=== PATIENT | female | born 1945 | race Caucasian/White ===

== ENCOUNTER → 2024-01-11 | Outpatient (CLI) | payer MEDICARE, SELFPAY ==
--- NOTE | 2024-01-11 10:14 | RAD_ITS ---
STUDY: X-RAY - PELVIS REASON FOR EXAM: Female, 78 years old. Pain. TECHNIQUE: One view of the pelvis was obtained. COMPARISON: None. FINDINGS: Normal bowel gas pattern with air seen to the rectosigmoid. Calcified uterine fibroid with vascular calcifications and phleboliths. Osteopenia. 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 RAD/Pelvis 1 or 2 Views IMPRESSION: Osteopenia with osteoarthritic changes as described. Calcified uterine fibroid. No acute finding. Electronically Signed: Omid Villegas MD at 12:54 EDT ,
[2024-01-11 11:14] LABS: EXAGEN MAILED SPECIMEN
[2024-01-11 12:13] LABS: Absolute Lymphocyte Count 1.45 X10^3/uL (0.83-4.51); Absolute Neutrophil Count 3.8 X10^3/uL (2.0-7.7); Basophil# 0.02 X10^3/uL; Basophil% 0.3 % (0-1); Eosinophil# 0.06 X10^3/uL; Hematocrit 37.8 % (37-47); Hemoglobin 12.2 g/dL (12.0-15.0); Lymphocyte # 1.45 X10^3/ul (0.83-4.51); Lymphocyte % 24.9 % (19-41); Mean Corp Hgb Conc 32.3 g/dL (32-36); Mean Corpuscular Hgb 30.4 pg (27.0-32.0); Mean Corpuscular Volume 94.3 fL (81-99); Mean Platelet Vol. 9.5 fl (6.2-12.0); Monocyte# 0.46 X10^3/uL; Monocyte% 7.9 % (0-10); NRBC Flagged by Analyzer 0 % (0-5); Neutrophil # 3.81 X10^3/uL (2.7-7.7); Neutrophil % 65.6 % (47-70); Platelet Count 275 K/mm3 (150-450); RBC Distribution Width CV 14.6 % (11.6-14.6); RBC Distribution Width SD 51.1 fl (35.1-43.9); Red Blood Count 4.01 M/mm3 (4.2-5.4); White Blood Count 5.8 K/mm3 (4.4-11.0)
[2024-01-11 12:22] LABS: Color, Urine Straw (Yellow); Glucose, Dipstick Normal (Normal); Ketone-Dipstick Negative (Negative); Leukocyte Esterase-Dipstick 25 /ul (Negative); Nitrite-Dipstick Negative (Negative); Occult Blood-Urine Negative /ul (Negative); Protein-Dipstick Negative (Negative); Urine Bilirubin Dipstick Negative (Negative); Urine Clarity Clear (Clear); Urine Urobilinogen Normal (Normal); Urine pH 6.5 (5.0 - 8.0)
[2024-01-11 12:28] LABS: AST(SGOT) 21 U/L (15-37); Alanine Aminotransfer ALT/SGPT 17 U/L (13-56); Albumin, Serum 3.7 g/dL (3.2-5.0); Alkaline Phosphatase 102 U/L (45-117); Anion Gap 9 (5-15); BUN 14 mg/dL (7-18); BUN/Creat Ratio 12.8 RATIO (10-20); Calcium,Total 10.2 mg/dL (8.5-10.1); Chloride 98 mmol/L (98-107); Creatinine, Serum 1.09 mg/dL (0.55-1.02); EST Glomerular Filtration Rate 51 mL/min (>60); Est Glom Filt Rate - Afr Amer 62 mL/min (>60); Globulin 3.7 g/dL (2.2-4.2); Glucose 105 mg/dL (74-106); Potassium 3.9 mmol/L (3.5-5.1); Protein, Total 7.4 g/dL (6.4-8.2); Sodium Level 132 mmol/L (136-145)
[2024-01-11 13:14] LABS: Hepatitis B Surface Antibody Non-Reactive; Hepatitis B Surface Antigen Non-Reactive (Nonreactive); Hepatitis C Antibody Non-Reactive (Nonreactive)
[2024-01-11 13:34] LABS: Protein, Urine (Random) < 6.0 mg/dL (<11.9)
[2024-01-14 06:10] LABS: QNTFERON TB Mitogen Value > 10.00 IU/mL (.); QNTFERON TB Nil Value 0.03 IU/mL (.); QNTFERON TB1+ Ag Value 0.03 IU/mL (.); QNTFERON TB2+ Ag Value 0.03 IU/mL (.); QNTIFERON TB Positive Criteria Negative (Negative)
== END | disposition home or self-care (01) ==
LOC: MTLAB 10:12
PROVIDERS: PCP Student in an Organized Health Care Education/Training Program; Referring Provider Internal Medicine Rheumatology; Visit Provider Internal Medicine Rheumatology
DX: R76.8 Other specified abnormal immunological findings in serum (principal); R10.2 Pelvic and perineal pain
CPT/HCPCS: 36415; 72170; 80053; 81002; 82570; 84156; 85025; 86480; 86706; 86803; 87340

== ENCOUNTER → 2024-03-21 | Outpatient (CLI) | payer MEDICARE, SELFPAY ==
[2024-03-21 15:28] LABS: Absolute Lymphocyte Count 1.43 X10^3/uL (0.83-4.51); Absolute Neutrophil Count 4.8 X10^3/uL (2.0-7.7); Basophil# 0.01 X10^3/uL; Basophil% 0.1 % (0-1); Eosinophil# 0.06 X10^3/uL; Eosinophils% 0.9 % (0-5); Hematocrit 36.5 % (37-47); Hemoglobin 12.2 g/dL (12.0-15.0); Lymphocyte # 1.43 X10^3/ul (0.83-4.51); Lymphocyte % 20.8 % (19-41); Mean Corp Hgb Conc 33.4 g/dL (32-36); Mean Corpuscular Hgb 32.8 pg (27.0-32.0); Mean Corpuscular Volume 98.1 fL (81-99); Monocyte# 0.52 X10^3/uL; Monocyte% 7.5 % (0-10); NRBC Flagged by Analyzer 0 % (0-5); Neutrophil # 4.84 X10^3/uL (2.7-7.7); Neutrophil % 70.3 % (47-70); Platelet Count 227 K/mm3 (150-450); RBC Distribution Width CV 15.5 % (11.6-14.6); RBC Distribution Width SD 54.9 fl (35.1-43.9); Red Blood Count 3.72 M/mm3 (4.2-5.4); White Blood Count 6.9 K/mm3 (4.4-11.0)
[2024-03-21 15:55] LABS: AST(SGOT) 15 U/L (15-37); Alanine Aminotransfer ALT/SGPT 15 U/L (13-56); Albumin, Serum 3.6 g/dL (3.2-5.0); Alkaline Phosphatase 103 U/L (45-117); Anion Gap 6 (5-15); BUN 17 mg/dL (7-18); BUN/Creat Ratio 19.3 RATIO (10-20); Chloride 99 mmol/L (98-107); Creatinine, Serum 0.88 mg/dL (0.55-1.02); EST Glomerular Filtration Rate 65 mL/min (>60); Est Glom Filt Rate - Afr Amer 79 mL/min (>60); Globulin 3.5 g/dL (2.2-4.2); Glucose 100 mg/dL (74-106); Potassium 4.1 mmol/L (3.5-5.1); Protein, Total 7.1 g/dL (6.4-8.2); Sodium Level 132 mmol/L (136-145)
== END | disposition home or self-care (01) ==
PROVIDERS: PCP Student in an Organized Health Care Education/Training Program; Referring Provider Internal Medicine Rheumatology; Visit Provider Internal Medicine Rheumatology
DX: M05.79 Rheumatoid arthritis with rheumatoid factor of multiple sites without organ or systems involvement (principal); Z79.899 Other long term (current) drug therapy; R76.8 Other specified abnormal immunological findings in serum; M79.7 Fibromyalgia
CPT/HCPCS: 36415; 80053; 85025

== ENCOUNTER → 2024-05-23 | Outpatient (CLI) | payer MEDICARE, SELFPAY ==
[2024-05-23 12:12] LABS: Absolute Lymphocyte Count 1.41 X10^3/uL (0.83-4.51); Absolute Neutrophil Count 2.9 X10^3/uL (2.0-7.7); Basophil# 0.01 X10^3/uL; Basophil% 0.2 % (0-1); Eosinophil# 0.05 X10^3/uL; Hematocrit 34.2 % (37-47); Hemoglobin 11.2 g/dL (12.0-15.0); Lymphocyte # 1.41 X10^3/ul (0.83-4.51); Lymphocyte % 28.8 % (19-41); Mean Corp Hgb Conc 32.7 g/dL (32-36); Mean Corpuscular Hgb 33.1 pg (27.0-32.0); Mean Corpuscular Volume 101.2 fL (81-99); Mean Platelet Vol. 9.4 fl (6.2-12.0); Monocyte# 0.54 X10^3/uL; NRBC Flagged by Analyzer 0 % (0-5); Neutrophil # 2.88 X10^3/uL (2.7-7.7); Neutrophil % 58.8 % (47-70); Platelet Count 214 K/mm3 (150-450); RBC Distribution Width CV 15.1 % (11.6-14.6); RBC Distribution Width SD 54.8 fl (35.1-43.9); Red Blood Count 3.38 M/mm3 (4.2-5.4); White Blood Count 4.9 K/mm3 (4.4-11.0)
[2024-05-23 12:39] LABS: ALB/GLOB Ratio 0.9 RATIO (0.9-2.4); AST(SGOT) 14 U/L (15-37); Alanine Aminotransfer ALT/SGPT 19 U/L (13-56); Albumin, Serum 3.4 g/dL (3.2-5.0); Alkaline Phosphatase 108 U/L (45-117); Anion Gap 6 (5-15); BUN 14 mg/dL (7-18); BUN/Creat Ratio 14.1 RATIO (10-20); Calcium,Total 9.9 mg/dL (8.5-10.1); Chloride 104 mmol/L (98-107); Creatinine, Serum 0.99 mg/dL (0.55-1.02); EST Glomerular Filtration Rate 57 mL/min (>60); Est Glom Filt Rate - Afr Amer 69 mL/min (>60); Globulin 3.6 g/dL (2.2-4.2); Glucose 101 mg/dL (74-106); Potassium 4.6 mmol/L (3.5-5.1); Sodium Level 138 mmol/L (136-145)
== END | disposition home or self-care (01) ==
LOC: MTLAB 10:17
PROVIDERS: PCP Student in an Organized Health Care Education/Training Program; Referring Provider Internal Medicine Rheumatology; Visit Provider Internal Medicine Rheumatology
DX: M05.79 Rheumatoid arthritis with rheumatoid factor of multiple sites without organ or systems involvement (principal); Z79.899 Other long term (current) drug therapy; M35.00 Sjogren syndrome, unspecified; M79.7 Fibromyalgia
CPT/HCPCS: 36415; 80053; 85025

== ENCOUNTER → 2024-10-04 | Outpatient (CLI) | payer MEDICARE, SELFPAY ==
[2024-10-04 12:52] LABS: Absolute Lymphocyte Count 1.17 X10^3/uL (0.83-4.51); Absolute Neutrophil Count 3.4 X10^3/uL (2.0-7.7); Basophil# 0.01 X10^3/uL; Basophil% 0.2 % (0-1); Eosinophil# 0.08 X10^3/uL; Eosinophils% 1.6 % (0-5); Hematocrit 33.1 % (37-47); Hemoglobin 10.9 g/dL (12.0-15.0); Lymphocyte # 1.17 X10^3/ul (0.83-4.51); Lymphocyte % 23.7 % (19-41); Mean Corp Hgb Conc 32.9 g/dL (32-36); Mean Corpuscular Hgb 33.6 pg (27.0-32.0); Mean Corpuscular Volume 102.2 fL (81-99); Mean Platelet Vol. 9.7 fl (6.2-12.0); Monocyte# 0.26 X10^3/uL; Monocyte% 5.3 % (0-10); NRBC Flagged by Analyzer 0 % (0-5); Neutrophil # 3.41 X10^3/uL (2.7-7.7); Platelet Count 241 K/mm3 (150-450); RBC Distribution Width CV 14.4 % (11.6-14.6); RBC Distribution Width SD 53.1 fl (35.1-43.9); Red Blood Count 3.24 M/mm3 (4.2-5.4); White Blood Count 4.9 K/mm3 (4.4-11.0)
[2024-10-04 13:20] LABS: ALB/GLOB Ratio 1.5 RATIO (0.9-2.4); AST(SGOT) 24 U/L (<=31); Alanine Aminotransfer ALT/SGPT 14 U/L (<=34); Alkaline Phosphatase 114 U/L (35-104); Anion Gap 12 (5-15); BUN 15 mg/dL (4-19); BUN/Creat Ratio 17.8 RATIO (10-20); Calcium,Total 9.8 mg/dL (7.6-11.0); Carbon Dioxide 24.4 mmol/L (21.0-32.0); Chloride 99 mmol/L (98-108); Creatinine, Serum 0.83 mg/dL (0.70-1.20); EST Glomerular Filtration Rate 70 (>60); Globulin 2.7 g/dL (2.2-4.2); Glucose 97 mg/dL (70-99); Potassium 4.2 mmol/L (3.3-5.1); Protein, Total 6.7 g/dL (5.9-8.4); Sodium Level 135 mmol/L (133-145); Total Bilirubin 0.74 mg/dL (0.00-1.30)
--- OUTSIDE RECORDS SUMMARY | 2024-10-04 20:33 | XMS RPT_ITS | CCD ---
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 Name Role Phone Trace Mendiola Unavailable [phone] Giancarlo Cesar Unavailable SHAWNA ZHOU Admitting Unavailable TRACE MENDIOLA Primary Care Unavailable Trace Mendiola Primary Care Provider Giancarlo Cesar Unavailable Trace Mendiola DO Primary Care Provider Giancarlo Cesar DPM Unavailable Trace Mendiola DO Primary Care Provider Trace Mendiola DO Primary Care Provider Giancarlo Cesar DPM Unavailable Trace Mendiola DO Primary Care Provider Trace Mendiola DO Primary Care Provider TRACE MENDIOLA Primary Care Unavailable Trace Mendiola DO Primary Care Provider SAM GRACIA Attending Unavailable RICK NÚÑEZ Referring Unavailable TRACE MENDIOLA Primary Care Unavailable SAM GRACIA Attending Unavailable TRACE MENDIOLA Primary Care Unavailable SAM GRACIA Attending Unavailable TRACE MENDIOLA Primary Care Unavailable MARYAM ABDULLAHI Attending Unavail able TRACE MENDIOLA Primary Care Unavailable MARYAM ABDULLAHI Attending Unavail able TRACE MENDIOLA Primary Care Unavailable INDIRA LEVY Attending Unavailable TRACE MENDIOLA Primary Care Unavailable MENDIOLA, TRACE L Primary Care Unavailable LEB, SAM B Referring Unavailable MENDIOLA, TRACE L Primary Care Unavailable LEB, SAM B Referring Unavailable MENDIOLA, TRACE L Primary Care Unavailable LEB, SAM B Referring Unavailable MENDIOLA, TRACE L Primary Care Unavailable OHLIGER, INDIRA E Referring Unavailable MENDIOLA, TRACE L Primary Care Unavailable OHLIGER MARYAM LUGO Referring Unavail able MENDIOLA, TRACE L Primary Care Unavailable RODOLFO CASSIDY Attending Unavailable OHBRYANGERINDIRA Referring Unavailable MENDIOLA, TRACE L Primary Care Unavailable RODOLFO CASSIDY Attending Unavailable OHLIGERINDIRA Referring Unavailable MENDIOLA, TRACE L Primary Care Unavailable OHLIGERINDIRA Referring Unavailable MENDIOLA, TRACE L Primary Care Unavailable OHLIGERINDIRA Referring Unavailable MENDIOLA, TRACE L Primary Care Unavailable OHLIGERINDIRA Referring Unavailable MENDIOLA, TRACE L Primary Care Unavailable OHLIGERINDIRA Referring Unavailable MENDIOLA, TRACE L Primary Care Unavailable OHLIGERINDIRA Referring Unavailable MENDIOLA, TRACE L Primary Care Unavailable OHLIGERINDIRA Referring Unavailable MENDIOLA, TRACE L Primary Care Unavailable RODOLFO CASSIDY Attending Unavailable OHBRYANGERINDIRA Referring Unavailable MENDIOLA, TRACE L Primary Care Unavailable RODOLFO CASSIDY Attending Unavailable OHBRYANGERINDIRA Referring Unavailable MENDIOLA, TRACE L Primary Care Unavailable OHLIGERINDIRA Referring Unavailable MENDIOLA, TRACE L Primary Care Unavailable RODOLFO CASSIDY Attending Unavailable OHINDIRA BROWN Referring Unavailable MENDIOLA, TRACE L Primary Care Unavailable OHLIGERINDIRA Referring Unavailable MENDIOLA, TRACE L Primary Care Unavailable OHLIGERINDIRA Referring Unavailable MENDIOLA, TRACE L Primary Care Unavailable OHLIGERINDIRA Referring Unavailable MENDIOLA, TRACE L Primary Care Unavailable OHLIGERINDIRA Referring Unavailable MENDIOLA, TRACE L Primary Care Unavailable RODOLFO CASSIDY Attending Unavailable OHINDIRA BROWN Referring Unavailable MENDIOLA, TRACE L Primary Care Unavailable OHLIGERINDIRA Referring Unavailable MENDIOLA, TRACE L Primary Care Unavailable OHLIGERINDIRA Referring Unavailable MENDIOLA, TRACE L Primary Care Unavailable OHLIGERINDIRA Referring Unavailable MENDIOLA, TRACE L Primary Care Unavailable RODOLFO CASSIDY Attending Unavailable OHBRYANGERINDIRA Referring Unavailable MENDIOLA, TRACE L Primary Care Unavailable OHLIGERINDIRA E Referring Unavailable MENDIOLA, TRACE L Primary Care Unavailable OHLIGER, INDIRA E Referring Unavailable MENDIOLA, TRACE L Primary Care Unavailable OHLIGER, INDIRA E Referring Unavailable MENDIOLA, TRACE L Primary Care Unavailable RODOLFO CASSIDY Attending Unavailable OHLIGERINDIRA E Referring Unavailable MENDIOLA, TRACE L Primary Care Unavailable MENDIOLA, TRACE L Primary Care Unavailable OHLIGER UPPERMAN, MARYAM Attending Unavailab le OHLIGER UPPERANA, MARYAM Referring Unavailab le MENDIOLA, TRACE L Primary Care Unavailable PROVIDER NOT IN SYSTEM, OTHER Attending Un available OHLIGER UPPERMAN, MARYAM Referring Unavailab le MENDIOLA, TRACE L Primary Care Unavailable OHLIGER UPPERMAN, MARYAM Referring Unavailab le OHLIGER UPPERMAN, MARYAM Attending Unavailab le OHLIGER UPPERANA, MARYAM Attending Unavailab le EMNDIOLA, TRACE L Primary Care Unavailable OHLIGER [place] MARYAM Referring Unavailab le INDIRA LEVY Attending Unavailable MENDIOLATRACE BRADY L Primary Care Unavailable OHLIGER [place], MARYAM Referring Unavailab le [facility] Attending Unavailab le MENDIOLA, TRACE L Primary Care Unavailable OHLIGER [place] MARYAM Referring Unavailab le OHLIGER YOMI, MARYAM Attending Unavailab le MENDIOLA, TRACE L Primary Care Unavailable OHLIGER [facility], MARYAM Referring Unavailab le Best SNOUT PULLER.Kaylen DUPONT Unavailable Sirisha SNOUT PULLER.Chyna DUPONT Unavailable CHYNA GRIMM Referring Unavailable TRACE MENDIOLA Primary Care Unavailable KAYLEN BEST Attending Unavailabl e MENDIOLATRACE L Primary Care Unavailable CHYNA GRIMM Attending Unavailable MENDIOLA TRACE L Primary Care Unavailable SIRISHACHYNA NORMAN Referring Unavailable MENDIOLA TRACE L Primary Care Unavailable CHYNA GRIMM Attending Unavailable MENDIOLATRACE L Primary Care Unavailable Love Gunter Attending Unavailable Love Gunter Referring Unavailable Trace Mendiola Primary Care Unavailable Love Gunter Attending Unavailable Love Gunter Referring Unavailable MendiolaTrace bardy Primary Care Unavailable Love Gunter Attending Unavailable Vellanki, Love Referring Unavailable Mendiola, Trace Primary Care Unavailable OHLIGER, INDIRA Mccauley Attending Unavailable MENDIOLA, TRACE L Primary Care Unavailable OHLIGER, INDIRA Mccauley Referring Unavailable MENDIOLA, TRACE L Primary Care Unavailable SCOUT OROZCO Attending Unavailable MENDIOLA, TRACE L Primary Care Unavailable OHLIGER UPPERANA, MARYAM E Referring Unavail able OHLIGER, INDIRA Mccauley Referring Unavailable MENDIOLA, TRACE L Primary Care Unavailable OHLIGER UPPERANA, MARYAM Mccauley Attending Unavail able MENDIOLA, TRACE L Primary Care Unavailable OHLIGER UPPERMAN, MARYAM E Referring Unavail able MENDIOLA, TRACE L Primary Care Unavailable OHLIGER, INDIRA Mccauley Attending Unavailable MENDIOLA, TRACE L Primary Care Unavailable OHLIGER, INDIRA E Referring Unavailable MENDIOLA, TRACE L Primary Care Unavailable OHLIGER, INDIRA Mccauley Attending Unavailable MENDIOLA, TRACE L Primary Care Unavailable OHLIGER, INDIRA E Referring Unavailable MENDIOLA, TRACE L Primary Care Unavailable OHLIGER YOMI, MARYAM E Attending Unavail able MENDIOLA, TRACE L Primary Care Unavailable [facility]HLIGER [facility] E Referring Unavail able MENDIOLA, TRACE L Primary Care Unavailable MENDIOLA, TRACE L Primary Care Unavailable CANDICE KIRAN Attending Unavailable MONICA PORTER Attending Unavailable MENDIOLA, TRACE L Primary Care Unavailable CANDICE KIRAN Attending Unavailable MENDIOLA, TRACE L Primary Care Unavailable KEVIN LACEY Attending Unavailable MENDIOLA, TRACE L Primary Care Unavailable Medications Current Medications Medication Drug Class(es) Dates Sig (Normalized) Sig (Original) acetaminophen 325 mg oral tablet (3 sources) Start: 08-11-2023 End: 08-18-2023 take 2 tablets by mouth every six hours acetaminophen (Tylenol) 325 mg tablet Indications: S/P reverse total shoulder arthroplasty, right Take 2 tablets (650 mg) by mouth every 6 hours for 7 days. 56 tablet 08/11/2023 08/18/2023 Active Start: 08-10-2023 take 650 mg by mouth every six hours as needed for pain 650 mg, oral, Every 6 hours scheduled, First dose on Wed08/10/23 at 1800, Phase II/On Unit, If ordered PRN for pain, nurse is permitted to administer this medication for higher pain scores based on patient preference? Yes Start: 08-10-2023 End: 08-10-2023 take 975 mg by mouth once as needed for pain 975 mg, oral, Once, On Wed08/10/23 at 0845, For 1 dose, Preprocedure, If ordered PRN for pain, nurse is permitted to administer this medication for higher pain scores based on patient preference? Yes acetaminophen 325 mg / oxyCODONE hydrochloride 5 mg oral tablet (2 sources) Opioid Agonist Start: 10-06-2023 End: 10-11-2023 take 1 tablet by mouth every six hours for pain oxyCODONE-acetaminophen (Percocet) 5-325 mg tablet Indications: Spontaneous rupture of extensor tendons, right hand Take 1 tablet by mouth every 6 hours if needed for severe pain (7 - 10) for up to 5 days. 20 tablet 10/06/2023 10/11/2023 Active Start: 06-07-2023 End: 06-10-2023 take 1 tablet by mouth every six hours for pain oxyCODONE-acetaminophen (Percocet) 5-325 mg tablet Indications: Fracture of humeral head, closed, right, initial encounter Take 1 tablet by mouth every 6 hours if needed for severe pain (7 - 10) for up to 3 days. 6 tablet 0 06/07/2023 06/10/2023 Active Amoxicillin (12 sources) Penicillin-class Antibacterial End: 07-14-2023 take 1 tablet by mouth twice daily AMOXICILLIN ORAL Take 1 tablet by mouth twice daily. 0 07/14/2023 Discontinued take 1 tablet by mouth twice ovi ly AMOXICILLIN ORAL Take 1 tablet by mouth twice daily. 0 Active Comment on above: Take 1 tablet by say twice daily. ascorbic acid 500 mg oral tablet (20 sources) Vitamin C take 1 tablet by mouth once daily ascorbic acid, vitamin C, (VITAMIN C) 500 MG tablet Take 1 (one) tablet (500 mg total) by mouth daily . Active Comment on above: Take 500 mg by mouth once daily. aspirin 81 mg delayed release oral tablet (20 sources) Nonsteroidal Anti-inflammatory Drug Start: 08-10-19 take 81 mg by mouth once daily 81 mg, oral, Daily, First dose on Wed08/10/23 at 1930, Do not crush, chew, or split. Comment on above: Take 81 mg by mouth once daily. atorvastatin 20 mg oral tablet (20 sources) HMG-CoA Reductase Inhibitor Start: 01-21-20 atorvastatin (LIPITOR) 20 MG tablet Indications: Mixed hyperlipidemia TAKE 1 TABLET EVERY DAY 90 tablet 3 01/21/2024 Active Start: 11-17-2022 atorvastatin ( LIPITOR) 20 MG tablet Indications: Mixed hyperlipidemia TAKE 1 TABLET EVERY DAY 90 tablet 3 11/17/2022 Active Start: 03-18-2020 End: 10-01-2021 take 1 tablet by mouth once daily atorvastatin (LIPITOR) 20 MG tablet Indications: Mixed hyperlipidemia Take 1 (one) tablet (20 mg total) by mouth daily . 90 tablet 3 10/01/2021 Active Start: 05-17-2019 take 1 tablet by say th once daily atorvastatin (LIPITOR) 20 MG tablet Indications: Mixed hyperlipidemia Take 1 (one) tablet (20 mg total) by mouth daily . 90 tablet 3 05/17/2019 Active Start: 06-14-2014 End: 05-17-2019 take 1 tablet by mouth once daily atorvastatin (Lipitor) 20 mg tablet Take 1 tablet (20 mg) by mouth once daily. 06/14/2014 Active Comment on above: Take 1 tablet by say th once daily. For cholesterol. bisacodyl 5 mg delayed release oral tablet (1 source) Stimulant Laxative Start: 08-10-19 take 1 tablet by mouth every twenty-four hours as needed Calcium Carbonate (12 sources) take 1200 mg by mouth once daily calcium carbonate (CALCIUM 600 ORAL) Take 1,200 mg by mouth once daily. Active calcium chloride 0.0014 meq/ml / potassium chloride 0.004 meq/ml / sodium chloride 0.103 meq/ml / sodium lactate 0.028 meq/ml injectable solution (3 sources) Start: 10-07-19 take 100 mL intravenously every hour 100 mL/hr, intravenous, Continuous, Starting on Wed10/07/23 at 0845, Preprocedure Start: 08-10-2023 take 50 mL intraveno usly every hour 50 mL/hr, intravenous, Continuous, Starting on Wed08/10/23 at 1645, Phase II/On Unit carvedilol 3.125 mg oral tablet (20 sources) alpha-Adrenergic Boyd, beta-Adrenergic Boyd Start: 01-21-2024 carvediloL (CORE G) 3.125 MG tablet Indications: Essential hypertension with goal blood pressure less than 130/80 TAKE 1 TABLET TWICE DAILY WITH MEALS 180 tablet 3 01/21/2024 Active Start: 11-17-2022 carvediloL (CO REG) 3.125 MG tablet Indications: Essential hypertension with goal blood pressure less than 130/80 TAKE 1 TABLET TWICE DAILY WITH MEALS 180 tablet 3 11/17/2022 Active Start: 03-18-2020 End: 10-01-2021 take 1 tablet by mouth twice daily at mealtime carvediloL (COREG) 3.125 MG tablet Indications: Essential hypertension with goal blood pressure less than 130/80 Take 1 (one) tablet (3.125 mg total) by mouth 2 (two) times a day with meals . 180 tablet 3 10/01/2021 Active Start: 05-17-2019 take 1 tablet by say th twice daily at mealtime carvediloL (COREG) 3.125 MG tablet Indications: Essential hypertension with goal blood pressure less than 130/80 Take 1 (one) tablet (3.125 mg total) by mouth 2 (two) times a day with meals . 180 tablet 3 05/17/2019 Active Start: 06-14-2014 End: 05-17-2019 take 1 tablet by mouth twice daily carvedilol (Coreg) 3.125 mg tablet Take 1 tablet (3.125 mg) by mouth twice a day. 06/14/2014 Active Comment on above: Take 1 tablet by say th twice daily. cholecalciferol 0.025 mg oral capsule (20 sources) Vitamin D take 1 capsule by mouth once daily cholecalciferol, vitamin D3, 25 mcg (1,000 unit) capsule Take 25 mcg by mouth daily . Active COMPOUNDED PRESCRIPTION (12 sources) End: COMPOUNDED PRESCRIPTION preservision tablet daily 0 07/14/2023 Discontinued COMPOUNDED PRESC RIPTION preservision tablet daily 0 Active Comment on above: preservision tablet daily cyclobenzaprine hydrochloride 5 mg oral tablet (2 sources) Muscle Relaxant Start: End: take 1 tablet by mouth three times daily as needed for muscle spasms cyclobenzaprine (Flexeril) 5 mg tablet Indications: S/P reverse total shoulder arthroplasty, right Take 1 tablet (5 mg) by mouth 3 times a day as needed for muscle spasms for up to 7 days. 21 tablet 08/11/2023 08/18/2023 Active Start: 08-10-2023 docusate sodium 100 mg oral capsule (20 sources) Start: 01-03-2019 End: 08-21-2023 take 1 capsule by mouth twice daily docusate sodium (COLACE) 100 MG capsule Take 1 (one) capsule (100 mg total) by mouth 2 (two) times a day . 01/03/2019 Active Start: 09-07-2018 End: 09-17-2018 take 1 capsule by mouth twice daily docusate sodium (COLACE) 100 MG capsule Take 1 (one) capsule (100 mg total) by mouth 2 (two) times a day for 10 days . 10 capsule 0 09/07/2018 09/17/2018 Active take 2 capsules by m outh once daily docusate sodium (Colace) 100 mg capsule Take 2 capsules (200 mg) by mouth once daily. Active Comment on above: Take 1 capsule by mo nhh twice daily. enalapril maleate 2.5 mg oral tablet (20 sources) Angiotensin Converting Enzyme Inhibitor Start: take 1 tablet by mouth once daily enalapril (VASOTEC) 2.5 MG tablet Indications: Essential hypertension with goal blood pressure less than 130/80 Take 1 (one) tablet (2.5 mg total) by mouth daily . 90 tablet 3 02/15/2024 Active Start: 08-11-2023 take 2.5 mg by mouth once shayna y 2.5 mg, oral, Daily RT, First dose on Wed08/11/23 at 0700 Start: 06-14-2014 End: 09-03-2023 take 1 tablet by mouth once daily enalapril (Vasotec) 2.5 mg tablet Take 1 tablet (2.5 mg) by mouth once daily. 06/14/2014 Active Start: 06-14-2014 take 1 tablet by say th twice daily enalapril (VASOTEC) 2.5 mg tablet Take 1 tablet by mouth twice daily. 0 06/14/2014 Active Comment on above: Take 1 tablet by say th twice daily. Take 2.5 mg by mouth once daily. fexofenadine (20 sources) Histamine-1 Receptor Antagonist take 1 tablet by mouth every other day fexofenadine HCl (ELSIE ORAL) Take 1 tablet by mouth every other day. Active take 1 tablet by mouth every oth er day fexofenadine HCl (ELSIE ORAL) Take 1 tablet by mouth every other day. 0 Active 24 hr fexofenadine hydrochloride 180 mg / pseudoephedrine hydrochloride 240 mg extended release oral tablet (20 sources) alpha-Adrenergic Agonist, Histamine-1 Receptor Antagonist Start: 11-10-2017 take 1 tablet by mouth once fexofenadine-pseudoePHEDrine (ELSIE-D 24) 180-240 mg per 24 hr tablet Take 1 (one) tablet by mouth once . 11/10/2017 Active Start: 11-10-2017 take 1 tablet by say th once daily as needed, then take 1 tablet by mouth every twenty-four hours as needed Fexofenadine-Pseudoephedrine (ELSIE-D 24 HOUR) 180-240 mg per 24 hr tablet Take 1 tablet by mouth once daily as needed (sinus/cold symptoms). 30 tablet 3 11/10/2017 Active take 1 tablet by say th every other day fexofenadine/pseudoephedrine (ELSIE-D 24 HOUR ORAL) Take 1 tablet by mouth every other day. Active take 1 tablet by say th every other day fexofenadine/pseudoephedrine (ELSIE-D 24 HOUR ORAL) Take 1 tablet by mouth every other day. 0 Active Comment on above: Take 1 tablet by say th once daily as needed (sinus/cold symptoms). folic acid 1 mg oral tablet (2 sources) Start: 02-01-2024 take 1 tablet by mouth once daily folic acid (FOLVITE) 1 MG tablet Take 2 (two) tablets (2,000 mcg total) by mouth daily . 02/01/2024 Active furosemide 40 mg oral tablet (20 sources) Loop Diuretic Start: 09-28-2023 End: 08-30-2024 take 1 tablet by mouth once daily furosemide (LASIX) 40 MG tablet Take 1 (one) tablet (40 mg total) by mouth daily . 09/28/2023 Active Start: 11-17-2022 End: 10-04-2023 take 1 tablet by mouth once daily as needed furosemide (LASIX) 20 MG tablet Indications: Essential hypertension with goal blood pressure less than 130/80 , Bilateral lower extremity edema Take 1 (one) tablet (20 mg total) by mouth daily as needed (for lower extremity swelling) . 90 tablet 3 11/17/2022 Active Start: 12-26-2016 End: 02-16-2022 take 1 tablet by mouth once daily as needed furosemide (LASIX) 20 MG tablet Indications: Essential hypertension with goal blood pressure less than 130/80 , Bilateral lower extremity edema Take 1 (one) tablet (20 mg total) by mouth daily as needed (for lower extremity swelling) . 90 tablet 2 10/01/2021 Active 0.5 ml HYDROmorphone hydrochloride 1 mg/ml prefilled syringe (1 source) Opioid Agonist Start: 08-10-2023 take 0.5 mg intravenously every four hours as needed ibuprofen 800 mg oral tablet (20 sources) Nonsteroidal Anti-inflammatory Drug Start: 10-06-2023 End: 10-11-2023 take 1 tablet by mouth three times daily ibuprofen 800 mg tablet Indications: Spontaneous rupture of extensor tendons, right hand Take 1 tablet (800 mg) by mouth 3 times a day for 5 days. 15 tablet 10/06/2023 10/11/2023 Active Start: 06-10-2023 End: 10-04-2023 take 1 tablet by mouth every six hours for pain ibuprofen 600 mg tablet Indications: osteoarthritis Take 1 tablet (600 mg) by mouth every 6 hours if needed for mild pain (1 - 3). 28 tablet 2 06/10/2023 10/04/2023 Discontinued (Med List Cleanup) ketorolac tromethamine 5 mg/ml ophthalmic solution (20 sources) Nonsteroidal Anti-inflammatory Drug, Cyclooxygenase Inhibitor Start: 01-05-2020 take 1 drop(s) into the eye(s) four times daily ketorolac (ACULAR) 0.5 % ophthalmic solution Use 1 Drop in the right eye four times daily. 1 Bottle 1 01/05/2020 Active Start: 01-05-2020 take 1 drop(s) into the eye(s) four times daily ketorolac (ACULAR) 0.5 % ophthalmic solution Use 1 Drop in the right eye four times daily. 1 Bottle 1 01/05/2020 Active Comment on above: Use 1 Drop in the ri ght eye four times daily. lactobacillus acidophilus (13 sources) End: 07-14-2023 LACTOBACILLUS ACIDOPHILUS (PROBIOTIC ORAL) Take by mouth. 0 07/14/2023 Discontinued LACTOBACILLUS AC IDOPHILUS (PROBIOTIC ORAL) Take by mouth. 0 Active End: 05-18-2017 LACTOBACILLUS ACIDOPHILUS (P ROBIOTIC ORAL) Take by mouth. 05/18/2017 Discontinued Comment on above: Take by mouth. methotrexate 2.5 mg oral tablet (3 sources) Folate Analog Metabolic Inhibitor Start: take 7 tablets by mouth every week methotrexate 2.5 mg tablet Take 7 tablets by mouth one time a week. 06/01/2024 Active Start: 02-01-2024 take 1 tablet by say th every week methoTREXate (TREXALL) 2.5 MG tablet Take 1 (one) tablet (2.5 mg total) by mouth once a week . 02/01/2024 Active 1 ml morphine sulfate 2 mg/ml prefilled syringe (1 source) Opioid Agonist Start: 08-10-2023 multivitamin (THERAGRAN) per tablet (4 sources) take 1 tablet by mouth once daily multivitamin (THERAGRAN) per tablet Take 1 (one) tablet by mouth daily . Active take 1 tablet by mouth once shayna y multivitamin (THERAGRAN) per tablet Take 1 (one) tablet by mouth daily . 0 Active multivitamin tablet (12 sources) End: 07-14-2023 take 1 tablet by mouth once daily multivitamin tablet Take 1 tablet by mouth once daily. 0 07/14/2023 Discontinued take 1 tablet by mouth once shayna y multivitamin tablet Take 1 tablet by mouth once daily. 0 Active Comment on above: Take 1 tablet by say th once daily. 2 ml naloxone hydrochloride 1 mg/ml prefilled syringe (12 sources) Opioid Antagonist Start: 08-10-2023 Start: 08-06-2023 End: 10-04-2023 naloxone (Narcan) 4 mg/0.1 m L nasal spray Instill 1 spray intranasally for opioid overdose; repeat in 5 minutes if no response. 2 each 08/06/2023 10/04/2023 Discontinued (Med List Cleanup) naproxen 500 mg delayed release oral tablet (20 sources) Nonsteroidal Anti-inflammatory Drug Start: 08-23-2015 take 1 tablet by mouth twice daily as needed Naproxen SR (EC-NAPROSYN) 500 mg EC tablet Indications: Arthritis pain, wrist Take 1 tablet by mouth twice daily as needed. 30 tablet 1 08/23/2015 Active take 1 tablet by say th twice daily as needed naproxen (Naprosyn) 250 mg tablet Take 1 tablet (250 mg) by mouth 2 times a day as needed. Active Comment on above: Take 1 tablet by say th twice daily as needed. omeprazole 20 mg delayed release oral capsule (16 sources) Proton Pump Inhibitor take 1 capsule by mouth once daily omeprazole (PRILOSEC) 20 MG capsule Take 1 (one) capsule (20 mg total) by mouth daily . Active take 1 tablet by say th once daily before mealtime omeprazole OTC (PriLOSEC OTC) 20 mg EC tablet Take 1 tablet (20 mg) by mouth once daily in the morning. Take before meals. Do not crush, chew, or split. 0 Active Ondansetron (1 source) Serotonin-3 Receptor Antagonist Start: 08-10-2023 take 1 tablet by mouth every eight hours as needed ondansetron (Zofran) tablet 4 mg oxyCODONE hydrochloride 5 mg oral tablet (3 sources) Opioid Agonist Start: 08-10-2023 End: 08-18-2023 take 1 tablet by mouth every six hours for pain oxyCODONE (Roxicodone) 5 mg immediate release tablet Indications: S/P reverse total shoulder arthroplasty, right Take 1 tablet (5 mg) by mouth every 6 hours if needed for moderate pain (4 - 6) or severe pain (7 - 10) for up to 7 days. 28 tablet 08/11/2023 08/18/2023 Active Start: 08-10-2023 take 1 tablet by say th every four hours as needed 10 mg, oral, Every 4 hours PRN, pain moderate (4-6), first line, Starting on Wed08/10/23 at 1617, Phase II/On Unit, If ordered PRN for pain, nurse is permitted to administer this medication for higher pain scores based on patient preference? Yes pantoprazole 20 mg delayed r elease oral tablet (20 sources) Proton Pump Inhibitor Start: 08-12-2023 Start: 09-26-2021 End: 07-13-2023 take 1 tablet by mouth once daily pantoprazole (PROTONIX) 40 MG tablet Take 1 (one) tablet (40 mg total) by mouth daily . 07/13/2023 Active take 1 tablet by say th once daily before mealtime pantoprazole (ProtoNix) 20 mg EC tablet Take 1 tablet (20 mg) by mouth once daily in the morning. Take before meals. Do not crush, chew, or split. Active Comment on above: TAKE 1 TABLET EVERY DAY Take 1 tablet by say once daily. phenylephrine hydrochloride 25 mg/ml ophthalmic solution (2 sources) alpha-1 Adrenergic Agonist Start: 08-21-2022 End: 08-22-2022 PHENYLephrine 2.5 % 1 Drop (AK-DILATE, GONZÁLEZ-SYNEPHRINE) Start: 07-08-2022 End: 07-09-2022 PHENYLephrine 2.5 % 1 Drop ( AK-DILATE) polyethylene glycol 400 4 mg /ml / propylene glycol 3 mg/ml ophthalmic solution (6 sources) Start: 04-07-2016 peg 400-propyl tayo glycol 0.4-0.3 % Drop 1 (one) drop . 04/07/2016 Active microencapsulated potassium chloride 10 meq extended release oral tablet (20 sources) Start: 02-17-2024 potassium chlo ride SA (K-DUR,KLOR-CON M10) 10 MEQ tablet Indications: Bilateral lower extremity edema , On potassium wasting diuretic therapy TAKE 1 TABLET EVERY DAY WHEN TAKING FUROSEMIDE 20MG DAILY FOR LOWER EXTREMITY SWELLING 90 tablet 3 02/17/2024 Active Start: 12-26-2016 End: 02-17-2024 take 1 tablet by mouth once daily potassium chloride CR 10 mEq ER tablet Take 1 tablet (10 mEq) by mouth once daily. 12/26/2016 Active prednisoLONE acetate 10 mg/ml ophthalmic suspension (20 sources) Corticosteroid Start: 01-05-2020 prednisoLONE a cetate (PRED FORTE, ECONOPRED PLUS) 1 % ophthalmic suspension Use 1 Drop in the right eye four times daily. 1 Bottle 1 01/05/2020 Active Start: 01-05-2020 prednisoLONE a cetate (PRED FORTE, ECONOPRED PLUS) 1 % ophthalmic suspension Use 1 Drop in the right eye four times daily. 1 Bottle 1 01/05/2020 Active Comment on above: Use 1 Drop in the ri ght eye four times daily. predniSONE 10 mg oral tablet (3 sources) Start: take 1 tablet by mouth once daily as needed predniSONE (DELTASONE) 10 MG tablet TAKE 1 TABLET BY MOUTH EVERY DAY NEEDED FOR 3-5 DAYS WITH A FLARE 01/11/2024 Active Prochlorperazine (1 source) Phenothiazine Start: take 1 tablet by mouth every six hours as needed prochlorperazine (Compazine) tablet 10 mg promethazine (Phenergan) 6.25 mg in sodium chloride 0.9% 50 mL IV (1 source) Start: 6.25 mg, intravenous, Administer over 15 Minutes, Once as needed, Nausea/vomiting, second line, Starting on Wed08/10/23 at 1617, For 1 dose, Phase II/On Unit proparacaine hydrochloride 5 mg/ml ophthalmic solution (2 sources) Local Anesthetic Start: End: proparacaine 0.5 % 1 Drop (ALCAINE) Start: 07-08-2022 End: 07-09-2022 proparacaine 0.5 % 1 Drop (A LCAINE) Propylene glycol (20 sources) take 1 drop(s) into the eye(s) once daily propylene glycol (SYSTANE COMPLETE OPHT) Administer 1 drop into affected eye(s) once daily. Active take 1 drop(s) into the eye(s) once daily propylene glycol (SYSTANE COMPLETE OPHT) Administer 1 drop into affected eye(s) once daily. 0 Active PROPYLENE GLYCOL/PEG 400 (BLINK TEARS LUBRICATING) Eye Drops (12 sources) Start: 04-07-2016 End: 07-14-2023 take 1 drop(s) into the eye(s) three times daily PROPYLENE GLYCOL/PEG 400 (BLINK TEARS LUBRICATING) Eye Drops Use 1 Drop in both eyes three times daily. 0 04/07/2016 07/14/2023 Discontinued Start: 04-07-2016 take 1 drop(s) into the eye(s) three times daily PROPYLENE GLYCOL/PEG 400 (BLINK TEARS LUBRICATING) Eye Drops Use 1 Drop in both eyes three times daily. 0 04/07/2016 Active Comment on above: Use 1 Drop in both e yes three times daily. tropicamide 10 mg/ml ophthalmic solution (2 sources) Anticholinergic Start: 08-21-2022 End: 08-22-2022 tropicamide 1 % 1 Drop (MYDRIACYL) Start: 07-08-2022 End: 07-09-2022 tropicamide 1 % 1 Drop (MYDR IACYL) VIT A/VIT C/VIT E/ZINC/COPPE R (PRESERVISION AREDS ORAL) (12 sources) End: 07-14-2023 VIT A/VIT C/VIT E/ZINC/COPPE R (PRESERVISION AREDS ORAL) Take by mouth. 0 07/14/2023 Discontinued VIT A/VIT C/VIT E/ZINC/COPPER (PRESERVISION AREDS ORAL) Take by mouth. 0 Active Comment on above: Take by mouth. Completed/Discontinued Medications Medication Drug Class(es) Dates Sig (Normalized) Sig (Original) ASCORBATE CALCIUM (VITAMIN C ORAL) (2 sources) End: 03-07-2018 ASCORBATE CALCIUM (VITAMIN C ORAL) Take by mouth. 0 03/07/2018 Discontinued (Discontinued by another clinician) ASCORBATE CALCIU M (VITAMIN C ORAL) Take by mouth. Active ceFAZolin 2000 mg injection (1 source) Cephalosporin Antibacterial Start: 08-10-2023 End: 08-11-2023 take 2 g intravenously every eight hours 2 g, intravenous, Administer over 30 Minutes, Every 8 hours, First dose on Wed08/10/23 at 2030, For 2 doses, Phase II/On Unit, Start 8 hours after pre-op dose given. premix bag, Dosing of this medication varies based on severity of illness. Does this patient have sepsis or concern for sepsis (probable or documented infection plus systemic manifestations of infection)? No, Suspected Indication (Select all that apply): Surgical Prophylaxis celecoxib 200 mg oral capsule (1 source) Nonsteroidal Anti-inflammatory Drug Start: 08-10-2023 End: 08-10-2023 take 1 capsule by mouth once 400 mg, oral, Once, On Wed08/10/23 at 0845, For 1 dose, Preprocedure, Capsules may be opened and sprinkled on a spoonful of cold or room temperature applesauce. gabapentin 300 mg oral capsule (1 source) Anti-epileptic Agent Start: 08-10-2023 End: 08-10-2023 take 1 capsule by mouth once 600 mg, oral, Once, On Wed08/10/23 at 0845, For 1 dose, Preprocedure, Capsules may be opened and sprinkled on food (eg, applesauce, orange juice, pudding L. acidophilus/pecti n, citrus (ACIDOPHILUS PROBIOTIC ORAL) (1 source) End: 12-01-2022 L. acidophilus/pectin , citrus (ACIDOPHILUS PROBIOTIC ORAL) Take by mouth . 0 12/01/2022 Discontinued (Patient's Request) multivitamin capsule (13 sources) End: 11-24-2021 take 1 capsule by mouth once daily multivitamin capsule Take 1 capsule by mouth daily. 0 11/24/2021 Discontinued (Patient's Request) take 1 capsule by mouth once ovi ly multivitamin capsule Take 1 capsule by mouth daily. 0 Active take 1 capsule by mouth once ovi ly multivitamin capsule Take 1 capsule by mouth daily. Active povidone-iodine 50 mg/ml topical solution (1 source) Antiseptic Start: 08-10-2023 End: 08-10-2023 1 Application (1 kit), Topical, Once, On Wed08/10/23 at 0900, For 1 dose, Preprocedure tranexamic acid 650 mg oral tablet (3 sources) Antifibrinolytic Agent Start: 08-10-2023 End: 08-10-2023 take 1 dose by mouth every six hours 1,950 mg, oral, Once, On Wed08/10/23 at 2100, For 1 dose, Recovery & On Unit, First dose administered 6 hours post procedure. Do not crush, chew, or split., Tranexamic Acid Indication: Surgical Prophylaxis: Orthopedic Start: 08-10-2023 End: 08-11-2023 1,950 mg, oral, Once, On Wed08/11/23 at 0600, For 1 dose, Phase II/On Unit, Second dose administered post-op day 1 at 0600. Do not crush, chew, or split., Tranexamic Acid Indication: Surgical Prophylaxis: Orthopedic VIT A/VIT C/VIT E/ZINC/COPPE R (OCUVITE PRESERVISION ORAL) (13 sources) End: 11-24-2021 VIT A/VIT C/VIT E/ZINC/COPPE R (OCUVITE PRESERVISION ORAL) Take by mouth. 0 11/24/2021 Discontinued (Patient's Request) VIT A/VIT C/VIT E/ZINC/COPPER (OCUVITE PRESERVISION ORAL) Take by mouth. 0 Active VIT A/VIT C/VIT E/ZINC/COPPER (OCUVITE PRESERVISION ORAL) Take by mouth. Active Problems Active Problems Problem Classification Problem Date Documented Date Episodic/Chronic Cataract (20 sources) Combined form of senile cataract; Translations: [Combined forms of age-related cataract, unspecified eye] Onset: 02-07-2016 01-27-2017 Chronic Coronary atherosclerosis and other heart disease (20 sources) Coronary arteriosclerosis; Translations: [Coronary arteriosclerosis in [place] artery] Onset: 08-16-2015 08-16-2015 Chronic Disorders of lipid metabolism (20 sources) Hyperlipidemia; Translations: [Mixed hyperlipidemia] Onset: 08-16-2015 08-16-2015 Chronic Esophageal disorders (20 sources) Gastroesophageal reflux disease without esophagitis; Translations: [Gastro-esophageal reflux disease without esophagitis] Onset: 08-01-2013 Chronic Essential hypertension (20 sources) Hypertensive disorder; Translations: [Essential hypertension] Onset: 08-16-2015 08-16-2015 Chronic Inflammation; infection of eye (except that caused by tuberculosis or sexually transmitteddisease) (20 sources) Bilateral punctate keratitis of eyes; Translations: [Punctate keratitis, bilateral] Onset: 01-27-2017 01-27-2017 Chronic Nutritional deficiencies (20 sources) Vitamin D deficiency; Translations: [Vitamin D deficiency, unspecified] Onset: 02-17-2022 Chronic Osteoarthritis (20 sources) Primary gonarthrosis, bilateral; Translations: [Bilateral primary osteoarthritis of knee] Onset: 06-16-2013 Chronic Other aftercare (2 sources) Drug therapy finding; Translations: [Other usp (current) drug therapy] Episodic Other and ill-defined heart disease (20 sources) Left ventricular cardiac dysfunction; Translations: [Heart disease, unspecified] Onset: 08-16-2015 08-16-2015 Chronic Other and ill-defined heart disease (2 sources) Heart disease, unspecified; Translations: [Heart disease, unspecified] Onset: 08-16-2015 Chronic Other connective tissue disease (20 sources) History of total knee arthroplasty; Translations: [Presence of unspecified artificial knee joint] Onset: 06-16-2013 Resolved: 11-13-2014 11-13-2014 Chronic Other connective tissue disease (20 sources) History of reverse prosthetic total arthroplasty of right shoulder; Translations: [Presence of right artificial shoulder joint] Onset: 08-10-2023 08-11-2023 Chronic Other connective tissue disease (4 sources) History of total arthroplasty of right shoulder; Translations: [Presence of right artificial shoulder joint] 08-27-2023 Chronic Other connective tissue disease (6 sources) Presence of right artificial shoulder joint; Translations: [Presence of right artificial shoulder joint] Onset: 08-10-2023 Chronic Other connective tissue disease (1 source) Spontaneous rupture of extensor tendons, right hand; Translations: [Spontaneous rupture of extensor tendons, right hand] Onset: 01-06-2024 Episodic Other ear and sense organ disorders (1 source) Sensorineural hearing loss, bilateral; Translations: [Sensorineural hearing loss, bilateral] 01-17-2024 Chronic Other ear and sense organ disorders (2 sources) Impacted cerumen of bilateral ears; Translations: [Impacted cerumen, bilateral] 03-16-2023 Episodic Other eye disorders (20 sources) Bilateral vitreous floaters; Translations: [Other vitreous opacities, bilateral] Onset: 04-07-2016 04-07-2016 Chronic Other nervous system disorders (2 sources) Other chronic pain; Translations: [Other chronic pain] Onset: 09-28-2023 Chronic Other non-traumatic joint disorders (2 sources) Arthritis of right wrist 08-14-2024 Chronic Other non-traumatic joint disorders (2 sources) Multiple joint pain; Translations: [Pain in unspecified joint] 09-03-2023 Episodic Other nutritional; endocrine; and metabolic disorders (20 sources) Body mass index 40+ - severely obese; Translations: [Morbid (severe) obesity due to excess calories] Onset: 09-06-2017 09-06-2017 Chronic Other nutritional; endocrine; and metabolic disorders (13 sources) Obesity; Translations: [Obesity, unspecified] Onset: 10-06-2023 10-06-2023 Chronic Other screening for suspected conditions (not mental disorders or infectious disease) (3 sources) Patient encounter status; Translations: [Encounter for screening mammogram for malignant neoplasm of breast] Episodic Retinal detachments; defects; vascular occlusion; and retinopathy (20 sources) Bilateral epiretinal membrane of eyes; Translations: [Puckering of macula, bilateral] Onset: 10-13-2019 10-13-2019 Chronic Rheumatoid arthritis and related disease (1 source) Rheumatoid arthritis with rheumatoid factor of multiple sites without organ or systems involvement; Translations: [Rheumatoid arthritis with rheumatoid factor of multiple sites without organ or systems involvement] Onset: 06-09-2024 Chronic Unclassified (2 sources) History of reverse prosthetic total arthroplasty of right shoulder 08-07-2024 Unclassified (2 sources) Extensor tendon rupture of hand, right, initial encounter 08-14-2024 Unclassified (2 sources) 1 year follow up ear cleaning Onset: 01-17-2024 Past or Other Problems Problem Classification Problem Date Documented Date Episodic/Chronic Blindness and vision defects (20 sources) Visual field defect; Translations: [Unspecified visual field defects] Onset: 03-20-2016 03-20-2016 Episodic Complications of surgical procedures or medical care (12 sources) Disorder of tendon repair; Translations: [Other intraoperative and postprocedural complications and disorders of the musculoskeletal system] Onset: 10-27-2023 10-27-2023 Episodic Fracture of upper limb (20 sources) Closed fracture of right upper limb; Translations: [Unspecified fracture of shaft of humerus, right arm, initial encounter for closed fracture] Onset: 06-07-2023 Resolved: 08-11-2023 06-09-2023 Episodic Immunizations and screening for infectious disease (3 sources) Raised antinuclear antibody; Translations: [Other specified abnormal immunological findings in serum] Onset: 02-01-2024 09-28-2023 Episodic Malaise and fatigue (20 sources) Fatigue; Translations: [Other fatigue] Onset: 02-17-2022 Episodic Other and unspecified benign neoplasm (20 sources) Hemangioma of eyelid; Translations: [Hemangioma of skin and subcutaneous tissue] Onset: 10-13-2019 10-13-2019 Episodic Other connective tissue disease (17 sources) Spontaneous rupture of extensor tendon of right hand; Translations: [Spontaneous rupture of extensor tendons, right hand] Onset: 09-23-2023 09-23-2023 Episodic Other eye disorders (20 sources) Tear film insufficiency; Translations: [Dry eye syndrome of unspecified lacrimal gland] Onset: 04-07-2016 04-07-2016 Episodic Other eye disorders (20 sources) H/O: R cataract extraction; Translations: [Cataract extraction status, right eye] Onset: 01-19-2020 01-19-2020 Episodic Other eye disorders (20 sources) H/O: L cataract extraction; Translations: [Cataract extraction status, left eye] Onset: 01-19-2020 01-19-2020 Episodic Other eye disorders (15 sources) Dry eyes; Translations: [Dry eye syndrome of bilateral lacrimal glands] Onset: 02-07-2016 Resolved: 04-07-2016 04-07-2016 Episodic Other nervous system disorders (20 sources) Paresthesia of hand ; Translations: [Paresthesia of skin] Onset: 08-01-2013 08-01-2013 Episodic Other non-traumatic joint disorders (4 sources) Pain in unspecified joint; Translations: [Pain in unspecified joint] Onset: 09-09-2023 Episodic Other non-traumatic joint disorders (14 sources) Pain in right shoulder; Translations: [Pain in joint, shoulder region] Onset: 09-28-2023 09-28-2023 Episodic Residual codes; unclassified (20 sources) Bilateral lower limb edema; Translations: [Localized edema] Onset: 08-11-2016 Episodic Residual codes; unclassified (12 sources) Edema of right upper arm; Translations: [Localized edema] Onset: 09-28-2023 09-28-2023 Episodic Residual codes; unclassified (3 sources) Localized edema; Translations: [Localized edema] Onset: 09-28-2023 Episodic Spondylosis; intervertebral disc disorders; other back problems (20 sources) Backache; Translations: [Dorsalgia, unspecified] Onset: 08-01-2013 08-01-2013 Episodic Sprains and strains (12 sources) Strain of other specified muscles, fascia and tendons at wrist and hand level, right hand, initial encounter; Translations: [Sprain of hand, unspecified site] Onset: 09-21-2023 09-03-2023 Episodic Unclassified (7 sources) Edema of lower extremity; Translations: [Edema of both legs] Onset: 08-11-2016 08-11-2016 Episodic Unclassified (12 sources) Onset: 09-28-2023 09-28-2023 Results Test Name Value Interpretation Reference Range Facility XR WRIST RIGHT 3+ VIEWSon XR WRIST RIGHT 3+ VIEWS Interpreted By: Maryam Levy, STUDY: XR WRIST RIGHT 3+ VIEWS; ; 08/14/2024 2:03 pm INDICATION: Signs/Symptoms:pain. 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 ACCESSION NUMBER(S): [id number] ORDERING CLINICIAN: MARYAM LUGO FINDINGS: Three views of the right wrist status post sterile procedure. Abundant radiocarpal arthritis again present. Ulna alignment unchanged from prior. Evidence of diffuse arthritic changes throughout radiocarpal, midcarpal and remainder of hand IMPRESSION: As above MACRO: None Signed by: Maryam Levy 08/14/2024 4:06 PM Dictation workstation: [id number] [facility] XR Wrist - right 3 Viewson 0 08-14-2024 As above MACRO: None Signed by: Maryam Levy 08/14/2024 4:06 PM Dictation workstation: [id number] [facility] Interpreted By: Maryam Levy, STUDY: XR WRIST RIGHT 3+ VIEWS; ; 08/14/2024 2:03 pm INDICATION: Signs/Symptoms:pain. 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 ACCESSION NUMBER(S): [id number] ORDERING CLINICIAN: MARYAM LUGO FINDINGS: Three views of the right wrist status post sterile procedure. Abundant radiocarpal arthritis again present. Ulna alignment unchanged from prior. Evidence of diffuse arthritic changes throughout radiocarpal, midcarpal and remainder of hand [facility] Abiel Abdullahi MD - 08/14/2024 Interpreted By: Maraym Levy, STUDY: XR WRIST RIGHT 3+ VIEWS; ; 08/14/2024 2:03 pm INDICATION: Signs/Symptoms:pain. 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 ACCESSION NUMBER(S): [id number] ORDERING CLINICIAN: MARYAM LUGO FINDINGS: Three views of the right wrist status post sterile procedure. Abundant radiocarpal arthritis again present. Ulna alignment unchanged from prior. Evidence of diffuse arthritic changes throughout radiocarpal, midcarpal and remainder of hand IMPRESSION: As above MACRO: None Signed by: Maryam Levy 08/14/2024 4:06 PM Dictation workstation: [id number] [facility] Work Phone: [facility] Work Phone: Radiology Study observation (narrative) [facility] Work Phone: XR SHOULDER RIGHT 2+ VIEWSon 08-07-2024 XR SHOULDER RIGHT 2+ VIEWS Interpreted By: Indira Levy III, STUDY: XR SHOULDER RIGHT 2+ VIEWS; ; 08/07/2024 2:42 pm INDICATION: Signs/Symptoms:pain. 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 ACCESSION NUMBER(S): [id number] ORDERING CLINICIAN: INDIRA LEVY FINDINGS: Three views right shoulder: Status post right reverse shoulder arthroplasty for fracture. Similar inferior tilt about the glenosphere in comparison to prior x-rays. Scant lucency about the proximal aspect of the humeral prosthesis. No periprosthetic fracture. Some lucency about the inferior aspect in early findings consistent with scapular impingement. IMPRESSION: Status post right reverse shoulder arthroplasty for fracture MACRO: None Signed by: Indira Levy III 08/07/2024 3:39 PM Dictation workstation: [id number] [facility] Comment on above: Order Comment: 3 vie ws Gr[place], axillary, Scap Y XR Shoulder - right 2 Viewso n 08-07-2024 Status post right reverse shoulder arthroplasty for fracture MACRO: None Signed by: Indira Levy III 08/07/2024 3:39 PM Dictation workstation: [id number] [facility] Interpreted By: Indira Garvey III, STUDY: XR SHOULDER RIGHT 2+ VIEWS; ; 08/07/2024 2:42 pm INDICATION: Signs/Symptoms:pain. 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 ACCESSION NUMBER(S): [id number] ORDERING CLINICIAN: INDIRA LEVY FINDINGS: Three views right shoulder: Status post right reverse shoulder arthroplasty for fracture. Similar inferior tilt about the glenosphere in comparison to prior x-rays. Scant lucency about the proximal aspect of the humeral prosthesis. No periprosthetic fracture. Some lucency about the inferior aspect in early findings consistent with scapular impingement. [facility] Indira Levy MD - 08/07/2024 Interpreted By: Indira Levy III, STUDY: XR SHOULDER RIGHT 2+ VIEWS; ; 08/07/2024 2:42 pm INDICATION: Signs/Symptoms:pain. 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 ACCESSION NUMBER(S): [id number] ORDERING CLINICIAN: INDIRA LEVY FINDINGS: Three views right shoulder: Status post right reverse shoulder arthroplasty for fracture. Similar inferior tilt about the glenosphere in comparison to prior x-rays. Scant lucency about the proximal aspect of the humeral prosthesis. No periprosthetic fracture. Some lucency about the inferior aspect in early findings consistent with scapular impingement. IMPRESSION: Status post right reverse shoulder arthroplasty for fracture MACRO: None Signed by: Indira Levy III 08/07/2024 3:39 PM Dictation workstation: [id number] [facility] Work Phone: [facility] Work Phone: Radiology Study observation (narrative) [facility] Work Phone: CNOVon 06-01-2024 CNOV Office Visit (FAMPWS ) JEMAL,FELISHA ([id number]) 1945 F Date Time Provider Department 06/01/24 9:00 AM [facility] During your visit today, we recorded the following information about you: Pulse Respiration Blood pressure Weight 66/minute 14/minute 122/62 98.5 kg Height 1.67 m Kaylen Best, SNOUT PULLER.VEGETABLE PREPARER 06/01/2024 9:29 AM Signed Felisha Joaquin is a 79 year old female here for a Medicare wellness visit. Medicare Health Risk Assessment General Health Good Exercise: Minutes/Day 0 min Exercise: Days/Week 0 days Alcohol: Daily Use Never Alcohol: Drinks/Day Patient does not drink Alcohol: 6 or more drinks Never Feel off balance No Concerns: Teeth/Dentures No Concerns: Sexual function No Troubled by feelings None of the above Frequency: Eating healthy diet Several days ADLs requiring help None of the above Safety precautions in home/vehicle Yes Smoke, vape, chews tobacco No Difficulty hearing Yes Difficulty seeing No Current Providers Specialists: I have reviewed specialist-related care of the patient in the medical record. Medical/Family history review Reviewed and updated problem list, medical/surgical/family /social history, medications, and allergies. Opioid use review Opioid Medications (last 90 days) No data to display Anxiety/Depression screening PHQ-2 Score: 0 (Lower risk for depression) Recommendation: no further intervention at this time Cognitive screening Cognitive screening reviewed and No further action needed (score 3-5). Functional Observation Was the patient's Timed Up AND Go test unsteady or >= 12 seconds? No Advance Care Planning Patient did not wish or was not able to name a surrogate decision maker or provide an advance care plan Measurements Ht 167 cm (5' 5.75) Wt 98.5 kg (217 lb 3.2 oz) BMI 35.33 kg/m? Vision Screening: Follows with optometry/ophthalmology Assessment/Plan Medicare annual wellness visit, subsequent (Z00.00) - Counseled on healthy diet and regular exercise - Fall avoidance information provided - Personalized prevention plan provided Medications refilled. Recent lab work reviewed. Kaylen Best APRN.VEGETABLE PREPARER Allergies As of Date: 06/01/2024 (No Known Allergies) Date Reviewed: 06/01/2024 Reviewed by: Harper Stephenson LPN - Fully Assessed Reason for Visit: Medicare Wellness Exam [4060] Visit Diagnoses:Bilateral lower extremity edema [R60.0] Essential hypertension [I10] Order(s):furosemide (LASIX) 40 mg tabletTake 1 tablet by mouth once daily.Disp: 90 tabletRfl: 0 Prescriptions as of 06/01/2024 - furosemide (LASIX) 40 mg tablet Take 1 tablet by mouth once daily. - pantoprazole DR (PROTONIX) 40 mg tablet Take 1 tablet by mouth once daily. - prednisoLONE acetate (PRED FORTE, ECONOPRED PLUS) 1 % ophthalmic suspension Use 1 Drop in the right eye four times daily. - ketorolac (ACULAR) 0.5 % ophthalmic solution Use 1 Drop in the right eye four times daily. - docusate sodium (STOOL SOFTENER) 100 mg capsule Take 1 capsule by mouth twice daily. - Fexofenadine-Pseudoephe drine (ELSIE-D 24 HOUR) 180-240 mg per 24 hr tablet Take 1 tablet by mouth once daily as needed (sinus/cold symptoms). - KLOR-CON 10 10 mEq tablet - Naproxen SR (EC-NAPROSYN) 500 mg EC tablet Take 1 tablet by mouth twice daily as needed. - enalapril (VASOTEC) 2.5 mg tablet Take 2.5 mg by mouth once daily. - atorvastatin (LIPITOR) 20 mg tablet Take 1 tablet by mouth once daily. For cholesterol. - carvedilol (COREG) 3.125 mg tablet Take 1 tablet by mouth twice daily. - aspirin, enteric coated 81 mg EC tablet Take 81 mg by mouth once daily. - ascorbic acid, vitamin C, (VITAMIN C) 500 mg tablet Take 500 mg by mouth once daily. 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] 02/07/2016 Visual field loss [H53.40] 03/20/2016 Dry eye syndrome [H04.129] 04/07/2016 Combined forms of age-related cataract of both *04/07/2016 Vitreous floaters of both eyes [H43.393] 04/07/2016 Punctate keratitis, bilateral [H16.143] 01/27/2017 Obesity, Class III, BMI 40-49.9 (morbid obesity*09/06/2017 Epiretinal membrane (ERM) of both eyes [H35.373]10/13/2019 Essential hypertension [I10] 10/13/2019 Hemangioma of eyelid [D18.01] 10/13/2019 Status post cataract extraction and insertion o*01/19/2020 Status post cataract extraction and insertion o*01/19/2020 Dyslipidemia [E78.5] 02/17/2022 Fatigue [R53.83] 02/17/2022 (more content not included)... [facility] FELISHA JOAQUIN ([id number]) 1945 F Date Time Provider Department 06/01[facility] During your visit today, we recorded the following information about you: Alta Olivarez, RN 06/01/2024 11:15 AM Signed Pt saw Kaylen this morning and was to call in with her dose of Methotrexate. Pt has 2.5 mg tablets and takes 7 tablets once a week on Saturdays. Kaylen Best APRN.[employer] [employer] 06/01/2024 11:20 AM Signed Noted, thank you. I have updated our medication list. Thank you, Kaylen Best APRN.[facility] Allergies As of Date: 06/01/2024 (No Known Allergies) Date Reviewed: 06/01/2024 Reviewed by: Harper Stephenson LPN - Fully Assessed Reason for Visit: Medication Update [3875] Order(s):methotrexate 2.5 mg tabletTake 7 tablets by mouth one time a week.Disp: Rfl: Prescriptions as of 06/01/2024 - furosemide (LASIX) 40 mg tablet Take 1 tablet by mouth once daily. - methotrexate 2.5 mg tablet Take 7 tablets by mouth one time a week. - pantoprazole DR (PROTONIX) 40 mg tablet Take 1 tablet by mouth once daily. - prednisoLONE acetate (PRED FORTE, ECONOPRED PLUS) 1 % ophthalmic suspension Use 1 Drop in the right eye four times daily. - ketorolac (ACULAR) 0.5 % ophthalmic solution Use 1 Drop in the right eye four times daily. - docusate sodium (STOOL SOFTENER) 100 mg capsule Take 1 capsule by mouth twice daily. - Fexofenadine-Pseudoephe drine (ELSIE-D 24 HOUR) 180-240 mg per 24 hr tablet Take 1 tablet by mouth once daily as needed (sinus/cold symptoms). - KLOR-CON 10 10 mEq tablet - Naproxen SR (EC-NAPROSYN) 500 mg EC tablet Take 1 tablet by mouth twice daily as needed. - enalapril (VASOTEC) 2.5 mg tablet Take 2.5 mg by mouth once daily. - atorvastatin (LIPITOR) 20 mg tablet Take 1 tablet by mouth once daily. For cholesterol. - carvedilol (COREG) 3.125 mg tablet Take 1 tablet by mouth twice daily. - aspirin, enteric coated 81 mg EC tablet Take 81 mg by mouth once daily. - ascorbic acid, vitamin C, (VITAMIN C) 500 mg tablet Take 500 mg by mouth once daily. 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] 02/07/2016 Visual field loss [H53.40] 03/20/2016 Dry eye syndrome [H04.129] 04/07/2016 Combined forms of age-related cataract of both *04/07/2016 Vitreous floaters of both eyes [H43.393] 04/07/2016 Punctate keratitis, bilateral [H16.143] 01/27/2017 Obesity, Class III, BMI 40-49.9 (morbid obesity*09/06/2017 Epiretinal membrane (ERM) of both eyes [H35.373]10/13/2019 Essential hypertension [I10] 10/13/2019 Hemangioma of eyelid [D18.01] 10/13/2019 Status post cataract extraction and insertion o*01/19/2020 Status post cataract extraction and insertion o*01/19/2020 Dyslipidemia [E78.5] 02/17/2022 Fatigue [R53.83] 02/17/2022 Vitamin D deficiency [E55.9] 02/17/2022 Medicare annual wellness visit, subsequent [Z00*02/17/2022 Prescriptions ordered this encounter Disp Refills Start End METHOTREXATE SODIUM 2.5 MG TABLET 06/01/2024 Class: Med Update Route: ORAL Sig: Take 7 tablets by mouth one time a week. Encounter Status:Closed by KAYLEN BEST on 06/01/24 Normal [facility] CBC W/Diff, Automatedon - Absolute Lymph 1.41 X10 3/uL Normal 0.83-4.51 [facility] Comment on above: Performed By: #### L 500.4050, L100.0100 #### [facility] [address] [place], [address] Absolute Neut 2.9 X10 3/uL Normal 2.0-7.7 [facility] Comment on above: Performed By: #### L 500.4050, L100.0100 #### [facility] [address] [place], [address] Basophils/100 WBC (Bld) 0.2 % Normal 0-1 [facility] Comment on above: Performed By: #### L 500.4050, L100.0100 #### [facility] [address] [place], [address] Eosinophils/100 WBC (Bld) 1.0 % Normal 0-5 [facility] Comment on above: Performed By: #### L 500.4050, L100.0100 #### [facility] [address] [place], [address] Erythrocyte distribution width (RBC) [Ratio] 15.1 % High 11.6-14.6 [facility] Comment on above: Performed By: #### L 500.4050, L100.0100 #### [facility] [address] [place], [address] Hematocrit (Bld) [Volume fraction] 34.2 % Low 37-47 [facility] Comment on above: Performed By: #### L 500.4050, L100.0100 #### [facility] [address] [place], [address] Hemoglobin (Bld) [Mass/Vol] 11.2 g/dL Low 12.0-15.0 [facility] Comment on above: Performed By: #### L 500.4050, L100.0100 #### [facility] [address] [place], [address] IG% 0.200 Normal 0.0-0.9 [facility] Comment on above: Result Comment: IG% - Immature Granulocytes (promyelocytes, myelocytes and metamyelocytes) > 1% indicates that a LEFT SHIFT is Present. Performed By: #### L 500.4050, L100.0100 #### [facility] [address] [place], [address] Lymphocytes/100 WBC (Bld) 28.8 % Normal 19-41 [facility] Comment on above: Performed By: #### L 500.4050, L100.0100 #### [facility] [address] [place], [address] MCH (RBC) [Entitic mass] 33.1 pg High 27.0-32.0 [facility] Comment on above: Performed By: #### L 500.4050, L100.0100 #### [facility] [address] [place], [address] MCHC (RBC) [Mass/Vol] 32.7 g/dL Normal 32-36 [facility] Comment on above: Performed By: #### L 500.4050, L100.0100 #### [facility] [address] [place], [address] MCV (RBC) [Entitic vol] 101.2 fL High 81-99 [facility] Comment on above: Performed By: #### L 500.4050, L100.0100 #### [facility] [address] [place], [address] Monocytes/100 WBC (Bld) 11.0 % High 0-10 [facility] Comment on above: Performed By: #### L 500.4050, L100.0100 #### [facility] [address] [place], [address] Neutrophils/100 WBC (Bld) 58.8 % Normal 47-70 [facility] Comment on above: Performed By: #### L 500.4050, L100.0100 #### [facility] [address] [place], [address] Nucleated RBC (Bld) [#/Vol] 0 10*3/uL Normal 0-5 [facility] Comment on above: Performed By: #### L 500.4050, L100.0100 #### [facility] [address] [place], [address] Platelet mean volume (Bld) [Entitic vol] 9.4 fL Normal 6.2-12.0 [facility] Comment on above: Performed By: #### L 500.4050, L100.0100 #### [facility] [address] [place], [address] Platelets (Bld) [#/Vol] 214 10*3/uL Normal 150-450 [facility] Comment on above: Performed By: #### L 500.4050, L100.0100 #### [facility] [address] [place], [address] RBC (Bld) [#/Vol] 3.38 10*6/uL Low 4.2-5.4 [facility] Comment on above: Performed By: #### L 500.4050, L100.0100 #### [facility] [address] [place], [address] RDW SD 54.8 fl High 35.1-43.9 [facility] Comment on above: Performed By: #### L 500.4050, L100.0100 #### [facility] [address] [place], [address] WBC (Bld) [#/Vol] 4.9 10*3/uL Normal 4.4-11.0 [facility] Comment on above: Performed By: #### L 500.4050, L100.0100 #### [facility] [address] [place], [address] Comprehensive Metabolic Prof [facility] 05-23-2024 Albumin [Mass/Vol] 3.4 g/dL Normal 3.2-5.0 [facility] Comment on above: Performed By: #### L 500.4050, L100.0100 #### [facility] [address] [place], [address] Albumin/Globulin [Mass ratio] 0.9 {ratio} Normal 0.9-2.4 [facility] Comment on above: Performed By: #### L 500.4050, L100.0100 #### [facility] [address] [place], [address] ALK P 108 U/L Normal 45-117 [facility] Comment on above: Performed By: #### L 500.4050, L100.0100 #### [facility] [address] [place], [address] ALT [Catalytic activity/Vol] 19 U/L Normal 13-56 [facility] Comment on above: Performed By: #### L 500.4050, L100.0100 #### [facility] [address] [place], [address] AST [Catalytic activity/Vol] 14 U/L Low 15-37 [facility] Comment on above: Performed By: #### L 500.4050, L100.0100 #### [facility] [address] [place], [address] Bilirubin [Mass/Vol] 0.60 mg/dL Normal 0.20-1.00 [facility] Comment on above: Result Comment: For patients on eltrombopag therapy, use of Dimension [place] TBIL is not recommended. Performed By: #### L 500.4050, L100.0100 #### [facility] [address] [place], [address] BUN/CRE 14.1 RATIO Normal 10-20 [facility] Comment on above: Performed By: #### L 500.4050, L100.0100 #### [facility] [address] [place], [address] CA,Total 9.9 mg/dL Normal 8.5-10.1 [facility] Comment on above: Performed By: #### L 500.4050, L100.0100 #### [facility] [address] [place], [address] Chloride [Moles/Vol] 104 mmol/L Normal 98-107 [facility] Comment on above: Performed By: #### L 500.4050, L100.0100 #### [facility] [address] [place], [address] CO2 [Moles/Vol] 27.0 mmol/L Normal 21.0-32.0 [facility] Comment on above: Performed By: #### L 500.4050, L100.0100 #### [facility] [address] [place], [address] Creatinine [Mass/Vol] 0.99 mg/dL Normal 0.55-1.02 [facility] Comment on above: Result Comment: The validity of the calculated GFR GFRAA in patients over 70 years has not been determined. Clinical correlation is essential. Performed By: #### L 500.4050, L100.0100 #### [facility] [address] [place], [address] EST GFR - AA 69 mL/min Normal >60 [facility] Comment on above: Result Comment: Afri can [place] GFR Calc Performed By: #### L 500.4050, L100.0100 #### [facility] [address] [place], [address] GAP 6 Normal 5-15 [facility] Comment on above: Performed By: #### L 500.4050, L100.0100 #### [facility] [address] [place], [address] GFR/1.73 sq M.predicted among non-blacks MDRD (S/P/Bld) [Vol rate/Area] 57 mL/min/{1.73_m2} Low >60 [facility] Comment on above: Result Comment: Non- GFR Calc Performed By: #### L 500.4050, L100.0100 #### [facility] [address] [place], [address] Globulin (S) [Mass/Vol] 3.6 g/dL Normal 2.2-4.2 [facility] Comment on above: Performed By: #### L 500.4050, L100.0100 #### [facility] [address] [place], [address] Glucose [Mass/Vol] 101 mg/dL Normal 74-106 [facility] Comment on above: Result Comment: Fast ing Glucose result from 100 to 125 mg/dL suggests IMPAIRED HOMEOSTASIS per A.D.A. criteria. Performed By: #### L 500.4050, L100.0100 #### [facility] [address] [place], [address] Potassium [Moles/Vol] 4.6 mmol/L Normal 3.5-5.1 [facility] Comment on above: Performed By: #### L 500.4050, L100.0100 #### [facility] [address] [place], [address] Sodium [Moles/Vol] 138 mmol/L Normal 136-145 [facility] Comment on above: Performed By: #### L 500.4050, L100.0100 #### [facility] [address] [place], [address] T PROT 7.0 g/dL Normal 6.4-8.2 [facility] Comment on above: Performed By: #### L 500.4050, L100.0100 #### [facility] [address] [place], [address] Urea nitrogen [Mass/Vol] 14 mg/dL Normal 7-18 [facility] Comment on above: Performed By: #### L 500.4050, L100.0100 #### [facility] [address] [place], [address] CBC W/Diff, Automatedon 11-2 Absolute Lymph 1.43 X10 3/uL Normal 0.83-4.51 [facility] Comment on above: Performed By: #### L 500.4050, L100.0100 #### [facility] [address] [place], [address] Absolute Neut 4.8 X10 3/uL Normal 2.0-7.7 [facility] Comment on above: Performed By: #### L 500.4050, L100.0100 #### [facility] [address] [place], [address] Basophils/100 WBC (Bld) 0.1 % Normal 0-1 [facility] Comment on above: Performed By: #### L 500.4050, L100.0100 #### [facility] [address] [place], [address] Eosinophils/100 WBC (Bld) 0.9 % Normal 0-5 [facility] Comment on above: Performed By: #### L 500.4050, L100.0100 #### [facility] [address] [place], [address] Erythrocyte distribution width (RBC) [Ratio] 15.5 % High 11.6-14.6 [facility] Comment on above: Performed By: #### L 500.4050, L100.0100 #### [facility] [address] [place], [address] Hematocrit (Bld) [Volume fraction] 36.5 % Low 37-47 [facility] Comment on above: Performed By: #### L 500.4050, L100.0100 #### [facility] [address] [place], [address] Hemoglobin (Bld) [Mass/Vol] 12.2 g/dL Normal 12.0-15.0 [facility] Comment on above: Performed By: #### L 500.4050, L100.0100 #### [facility] [address] [place], [address] IG% 0.400 Normal 0.0-0.9 [facility] Comment on above: Result Comment: IG% - Immature Granulocytes (promyelocytes, myelocytes and metamyelocytes) > 1% indicates that a LEFT SHIFT is Present. Performed By: #### L 500.4050, L100.0100 #### [facility] [address] [place], [address] Lymphocytes/100 WBC (Bld) 20.8 % Normal 19-41 [facility] Comment on above: Performed By: #### L 500.4050, L100.0100 #### [facility] [address] [place], [address] MCH (RBC) [Entitic mass] 32.8 pg High 27.0-32.0 [facility] Comment on above: Performed By: #### L 500.4050, L100.0100 #### [facility] [address] [place], [address] MCHC (RBC) [Mass/Vol] 33.4 g/dL Normal 32-36 [facility] Comment on above: Performed By: #### L 500.4050, L100.0100 #### [facility] [address] [place], [address] MCV (RBC) [Entitic vol] 98.1 fL Normal 81-99 [facility] Comment on above: Performed By: #### L 500.4050, L100.0100 #### [facility] [address] [place], [address] Monocytes/100 WBC (Bld) 7.5 % Normal 0-10 [facility] Comment on above: Performed By: #### L 500.4050, L100.0100 #### [facility] [address] [place], [address] Neutrophils/100 WBC (Bld) 70.3 % High 47-70 [facility] Comment on above: Performed By: #### L 500.4050, L100.0100 #### [facility] [address] [place], [address] Nucleated RBC (Bld) [#/Vol] 0 10*3/uL Normal 0-5 [facility] Comment on above: Performed By: #### L 500.4050, L100.0100 #### [facility] [address] [place], [address] Platelet mean volume (Bld) [Entitic vol] 10.0 fL Normal 6.2-12.0 [facility] Comment on above: Performed By: #### L 500.4050, L100.0100 #### [facility] [address] [place], [address] Platelets (Bld) [#/Vol] 227 10*3/uL Normal 150-450 [facility] Comment on above: Performed By: #### L 500.4050, L100.0100 #### [facility] [address] [place], [address] RBC (Bld) [#/Vol] 3.72 10*6/uL Low 4.2-5.4 [facility] Comment on above: Performed By: #### L 500.4050, L100.0100 #### [facility] [address] [place], [address] RDW SD 54.9 fl High 35.1-43.9 [facility] Comment on above: Performed By: #### L 500.4050, L100.0100 #### [facility] [address] [place], [address] WBC (Bld) [#/Vol] 6.9 10*3/uL Normal 4.4-11.0 [facility] Comment on above: Performed By: #### L 500.4050, L100.0100 #### [facility] [address] [place], [address] Comprehensive Metabolic Prof nvon 03-21-2024 Albumin [Mass/Vol] 3.6 g/dL Normal 3.2-5.0 [facility] Comment on above: Performed By: #### L 500.4050, L100.0100 #### [facility] [address] [place], [address] Albumin/Globulin [Mass ratio] 1.0 {ratio} Normal 0.9-2.4 [facility] Comment on above: Performed By: #### L 500.4050, L100.0100 #### [facility] [address] [place], [address] ALK P 103 U/L Normal 45-117 [facility] Comment on above: Performed By: #### L 500.4050, L100.0100 #### [facility] [address] [place], [address] ALT [Catalytic activity/Vol] 15 U/L Normal 13-56 [facility] Comment on above: Performed By: #### L 500.4050, L100.0100 #### [facility] [address] [place], [address] AST [Catalytic activity/Vol] 15 U/L Normal 15-37 [facility] Comment on above: Performed By: #### L 500.4050, L100.0100 #### [facility] [address] [place], [address] Bilirubin [Mass/Vol] 0.60 mg/dL Normal 0.20-1.00 [facility] Comment on above: Result Comment: For patients on eltrombopag therapy, use of Dimension [place] TBIL is not recommended. Performed By: #### L 500.4050, L100.0100 #### [facility] [address] [place], [address] BUN/CRE 19.3 RATIO Normal 10-20 [facility] Comment on above: Performed By: #### L 500.4050, L100.0100 #### [facility] [address] [place], [address] CA,Total 10.0 mg/dL Normal 8.5-10.1 [facility] Comment on above: Performed By: #### L 500.4050, L100.0100 #### [facility] [address] [place], [address] Chloride [Moles/Vol] 99 mmol/L Normal 98-107 [facility] Comment on above: Performed By: #### L 500.4050, L100.0100 #### [facility] [address] [place], [address] CO2 [Moles/Vol] 27.0 mmol/L Normal 21.0-32.0 [facility] Comment on above: Performed By: #### L 500.4050, L100.0100 #### [facility] [address] [place], [address] Creatinine [Mass/Vol] 0.88 mg/dL Normal 0.55-1.02 [facility] Comment on above: Result Comment: The validity of the calculated GFR GFRAA in patients over 70 years has not been determined. Clinical correlation is essential. Performed By: #### L 500.4050, L100.0100 #### [facility] [address] [place], [address] EST GFR - AA 79 mL/min Normal >60 [facility] Comment on above: Result Comment: Afri can [place] GFR Calc Performed By: #### L 500.4050, L100.0100 #### [facility] [address] [place], [address] GAP 6 Normal 5-15 [facility] Comment on above: Performed By: #### L 500.4050, L100.0100 #### [facility] [address] [place], [address] GFR/1.73 sq M.predicted among non-blacks MDRD (S/P/Bld) [Vol rate/Area] 65 mL/min/{1.73_m2} Normal >60 [facility] Comment on above: Result Comment: Non- GFR Calc Performed By: #### L 500.4050, L100.0100 #### [facility] [address] [place], [address] Globulin (S) [Mass/Vol] 3.5 g/dL Normal 2.2-4.2 [facility] Comment on above: Performed By: #### L 500.4050, L100.0100 #### [facility] [address] [place], [address] Glucose [Mass/Vol] 100 mg/dL Normal 74-106 [facility] Comment on above: Result Comment: Fast ing Glucose result from 100 to 125 mg/dL suggests IMPAIRED HOMEOSTASIS per A.D.A. criteria. Performed By: #### L 500.4050, L100.0100 #### [facility] [address] [place], [address] Potassium [Moles/Vol] 4.1 mmol/L Normal 3.5-5.1 [facility] Comment on above: Performed By: #### L 500.4050, L100.0100 #### [facility] [address] [place], [address] Sodium [Moles/Vol] 132 mmol/L Low 136-145 [facility] Comment on above: Performed By: #### L 500.4050, L100.0100 #### [facility] [address] [place], [address] T PROT 7.1 g/dL Normal 6.4-8.2 [facility] Comment on above: Performed By: #### L 500.4050, L100.0100 #### [facility] [address] [place], [address] Urea nitrogen [Mass/Vol] 17 mg/dL Normal 7-18 [facility] Comment on above: Performed By: #### L 500.4050, L100.0100 #### [facility] [address] [place], [address] Quantiferon TB-Gold+on 01-13 QFT MITOGEN HAIDER > 10.00 Normal . [facility] Comment on above: Performed By: #### L 500.4050, L100.0100 #### [facility] [address] [place], [address] QFT NIL VALUE 0.03 IU/mL Normal . [facility] Comment on above: Performed By: #### L 500.4050, L100.0100 #### [facility] [address] [place], [address] QFT TB GOLD+ Comment Normal . [facility] Comment on above: Result Comment: Wilfrid tiFERON-TB Gold Plus is a qualitative indirect test for M tuberculosis infection (including disease) and is intended for use in conjunction with risk assessment, radiography, and other medical and diagnostic evaluations. The QuantiFERON-TB Gold Plus result is determined by subtracting the Nil value from either TB antigen (Ag) value. The Mitogen tube serves as a control for the test. Performed By: #### L 500.4050, L100.0100 #### [facility] [address] [place], [address] QFT TB POS CRIT Negative Normal Negative [facility] Comment on above: Result Comment: No r esponse to M tuberculosis antigens detected. Infection with M tuberculosis is unlikely, but high risk individuals should be considered for additional testing (ATS/IDSA/CDC Clinical Practice Guidelines, 2017). The reference range is an Antigen minus Nil result of <0.35 IU/mL. The specimen received for QuantiFERON testing was incubated by the ordering institution. Specific procedures outlined in our Directory of Services and in the package insert for the QuantiFERON Gold (In Tube) test must be followed to enable for proper stimulation of cells for the production of interferon gamma. Chemiluminescence immunoassay methodology Performed at: [facility] [id number] [employer] Feeder: Eliseo Dyer PhD, Phone: [phone] Performed By: #### L 500.4050, L100.0100 #### [facility] [address] [place], [address] QFT TB1+ AG HAIDER 0.03 IU/mL Normal . [facility] Comment on above: Performed By: #### L 500.4050, L100.0100 #### [facility] [address] [place], [address] QFT TB2+ AG HAIDER 0.03 IU/mL Normal . [facility] Comment on above: Performed By: #### L 500.4050, L100.0100 #### [facility] [address] [place], [address] CBC W/Diff, Automatedon 12-25 Absolute Lymph 1.45 X10 3/uL Normal 0.83-4.51 [facility] Comment on above: Performed By: #### L 3890.6300, L3400.8000, L100.0100, L400.2010, L501.0900, L500.4050, L3890.6100, L3890.6200 #### [facility] [address] [place], [address] Absolute Neut 3.8 X10 3/uL Normal 2.0-7.7 [facility] Comment on above: Performed By: #### L 3890.6300, L3400.8000, L100.0100, L400.2011, L501.0900, L500.4050, L3890.6100, L3890.6200 #### [facility] [address] [place], [address] Basophils/100 WBC (Bld) 0.3 % Normal 0-1 [facility] Comment on above: Performed By: #### L 3890.6300, L3400.8000, L100.0100, L400.2011, L501.0900, L500.4050, L3890.6100, L3890.6200 #### [facility] [address] [place], [place], [phone]) Eosinophils/100 WBC (Bld) 1.0 % Normal 0-5 [facility] Comment on above: Performed By: #### L 3890.6300, L3400.8000, L100.0100, L400.2011, L501.0900, L500.4050, L3890.6100, L3890.6200 #### [facility] [address] [place], [address] ([phone]) Erythrocyte distribution width (RBC) [Ratio] 14.6 % Normal 11.6-14.6 [facility] Comment on above: Performed By: #### L 3890.6300, L3400.8000, L100.0100, L400.2011, L501.0900, L500.4050, L3890.6100, L3890.6200 #### [facility] [address] [place], [address] [phone]) Hematocrit (Bld) [Volume fraction] 37.8 % Normal 37-47 [facility] Comment on above: Performed By: #### L 3890.6300, L3400.8000, L100.0100, L400.2010, L501.0900, L500.4050, L3890.6100, L3890.6200 #### [facility] [address] [place], [address] Hemoglobin (Bld) [Mass/Vol] 12.2 g/dL Normal 12.0-15.0 [facility] Comment on above: Performed By: #### L 3890.6300, L3400.8000, L100.0100, L400.2011, L501.0900, L500.4050, L3890.6100, L3890.6200 #### [facility] [address] [place], [address] IG% 0.300 Normal 0.0-0.9 [facility] Comment on above: Result Comment: IG% - Immature Granulocytes (promyelocytes, myelocytes and metamyelocytes) > 1% indicates that a LEFT SHIFT is Present. Performed By: #### L 3890.6300, L3400.8000, L100.0100, L400.2011, L501.0900, L500.4050, L3890.6100, L3890.6200 #### [facility] [address] [place], [address] Lymphocytes/100 WBC (Bld) 24.9 % Normal 19-41 [facility] Comment on above: Performed By: #### L 3890.6300, L3400.8000, L100.0100, L400.2011, L501.0900, L500.4050, L3890.6100, L3890.6200 #### [facility] [address] [place], [address] MCH (RBC) [Entitic mass] 30.4 pg Normal 27.0-32.0 [facility] Comment on above: Performed By: #### L 3890.6300, L3400.8000, L100.0100, L400.2011, L501.0900, L500.4050, L3890.6100, L3890.6200 #### [facility] [address] [place], [address] MCHC (RBC) [Mass/Vol] 32.3 g/dL Normal 32-36 [facility] Comment on above: Performed By: #### L 3890.6300, L3400.8000, L100.0100, L400.2011, L501.0900, L500.4050, L3890.6100, L3890.6200 #### [facility] [address] [place], [address] MCV (RBC) [Entitic vol] 94.3 fL Normal 81-99 [facility] Comment on above: Performed By: #### L 3890.6300, L3400.8000, L100.0100, L400.2011, L501.0900, L500.4050, L3890.6100, L3890.6200 #### [facility] [address] [place], [address] Monocytes/100 WBC (Bld) 7.9 % Normal 0-10 [facility] Comment on above: Performed By: #### L 3890.6300, L3400.8000, L100.0100, L400.2011, L501.0900, L500.4050, L3890.6100, L3890.6200 #### [facility] [address] [place], [address] Neutrophils/100 WBC (Bld) 65.6 % Normal 47-70 [facility] Comment on above: Performed By: #### L 3890.6300, L3400.8000, L100.0100, L400.2011, L501.0900, L500.4050, L3890.6100, L3890.6200 #### [facility] [address] [place], [address] Nucleated RBC (Bld) [#/Vol] 0 10*3/uL Normal 0-5 [facility] Comment on above: Performed By: #### L 3890.6300, L3400.8000, L100.0100, L400.2011, L501.0900, L500.4050, L3890.6100, L3890.6200 #### [facility] [address] [place], [address] Platelet mean volume (Bld) [Entitic vol] 9.5 fL Normal 6.2-12.0 [facility] Comment on above: Performed By: #### L 3890.6300, L3400.8000, L100.0100, L400.2010, L501.0900, L500.4050, L3890.6100, L3890.6200 #### [facility] [address] [place], [address] Platelets (Bld) [#/Vol] 275 10*3/uL Normal 150-450 [facility] Comment on above: Performed By: #### L 3890.6300, L3400.8000, L100.0100, L400.2011, L501.0900, L500.4050, L3890.6100, L3890.6200 #### [facility] [address] [place], [address] RBC (Bld) [#/Vol] 4.01 10*6/uL Low 4.2-5.4 [facility] Comment on above: Performed By: #### L 3890.6300, L3400.8000, L100.0100, L400.2010, L501.0900, L500.4050, L3890.6100, L3890.6200 #### [facility] [address] [place], [address] RDW SD 51.1 fl High 35.1-43.9 [facility] Comment on above: Performed By: #### L 3890.6300, L3400.8000, L100.0100, L400.2010, L501.0900, L500.4050, L3890.6100, L3890.6200 #### [facility] [address] [place], [address] WBC (Bld) [#/Vol] 5.8 10*3/uL Normal 4.4-11.0 [facility] Comment on above: Performed By: #### L 3890.6300, L3400.8000, L100.0100, L400.2011, L501.0900, L500.4050, L3890.6100, L3890.6200 #### [facility] [address] [place], [address] Comprehensive Metabolic Prof ilon 01-11-2024 Albumin [Mass/Vol] 3.7 g/dL Normal 3.2-5.0 [facility] Comment on above: Performed By: #### L 3890.6300, L3400.8000, L100.0100, L400.2011, L501.0900, L500.4050, L3890.6100, L3890.6200 #### [facility] [address] [place], [address] Albumin/Globulin [Mass ratio] 1.0 {ratio} Normal 0.9-2.4 [facility] Comment on above: Performed By: #### L 3890.6300, L3400.8000, L100.0100, L400.2011, L501.0900, L500.4050, L3890.6100, L3890.6200 #### [facility] [address] [place], [address] ALK P 102 U/L Normal 45-117 [facility] Comment on above: Performed By: #### L 3890.6300, L3400.8000, L100.0100, L400.2010, L501.0900, L500.4050, L3890.6100, L3890.6200 #### [facility] [address] [place], [address] ALT [Catalytic activity/Vol] 17 U/L Normal 13-56 [facility] Comment on above: Performed By: #### L 3890.6300, L3400.8000, L100.0100, L400.2011, L501.0900, L500.4050, L3890.6100, L3890.6200 #### [facility] [address] [place], [address] AST [Catalytic activity/Vol] 21 U/L Normal 15-37 [facility] Comment on above: Performed By: #### L 3890.6300, L3400.8000, L100.0100, L400.2011, L501.0900, L500.4050, L3890.6100, L3890.6200 #### [facility] [address] [place], [address] Bilirubin [Mass/Vol] 0.90 mg/dL Normal 0.20-1.00 [facility] Comment on above: Result Comment: For patients on eltrombopag therapy, use of Dimension [place] TBIL is not recommended. Performed By: #### L 3890.6300, L3400.8000, L100.0100, L400.2011, L501.0900, L500.4050, L3890.6100, L3890.6200 #### [facility] [address] [place], [address] BUN/CRE 12.8 RATIO Normal 10-20 [facility] Comment on above: Performed By: #### L 3890.6300, L3400.8000, L100.0100, L400.2011, L501.0900, L500.4050, L3890.6100, L3890.6200 #### [facility] [address] [place], [address] CA,Total 10.2 mg/dL High 8.5-10.1 [facility] Comment on above: Performed By: #### L 3890.6300, L3400.8000, L100.0100, L400.2011, L501.0900, L500.4050, L3890.6100, L3890.6200 #### [facility] [address] [place], [address] Chloride [Moles/Vol] 98 mmol/L Normal 98-107 [facility] Comment on above: Performed By: #### L 3890.6300, L3400.8000, L100.0100, L400.2010, L501.0900, L500.4050, L3890.6100, L3890.6200 #### [facility] [address] [place], [address] CO2 [Moles/Vol] 25.0 mmol/L Normal 21.0-32.0 [facility] Comment on above: Performed By: #### L 3890.6300, L3400.8000, L100.0100, L400.2010, L501.0900, L500.4050, L3890.6100, L3890.6200 #### [facility] [address] [place], [address] Creatinine [Mass/Vol] 1.09 mg/dL High 0.55-1.02 [facility] Comment on above: Result Comment: The validity of the calculated GFR GFRAA in patients over 70 years has not been determined. Clinical correlation is essential. Performed By: #### L 3890.6300, L3400.8000, L100.0100, L400.2010, L501.0900, L500.4050, L3890.6100, L3890.6200 #### [facility] [address] [place], [address] EST GFR - AA 62 mL/min Normal >60 [facility] Comment on above: Result Comment: Afri can Maur[place] GFR Calc Performed By: #### L 3890.6300, L3400.8000, L100.0100, L400.2010, L501.0900, L500.4050, L3890.6100, L3890.6200 #### [facility] [address] [place], [address] GAP 9 Normal 5-15 [facility] Comment on above: Performed By: #### L 3890.6300, L3400.8000, L100.0100, L400.2010, L501.0900, L500.4050, L3890.6100, L3890.6200 #### [facility] [address] [place], [address] GFR/1.73 sq M.predicted among non-blacks MDRD (S/P/Bld) [Vol rate/Area] 51 mL/min/{1.73_m2} Low >60 [facility] Comment on above: Result Comment: Non- GFR Calc Performed By: #### L 3890.6300, L3400.8000, L100.0100, L400.2010, L501.0900, L500.4050, L3890.6100, L3890.6200 #### [facility] [address] [place], [address] Globulin (S) [Mass/Vol] 3.7 g/dL Normal 2.2-4.2 [facility] Comment on above: Performed By: #### L 3890.6300, L3400.8000, L100.0100, L400.2010, L501.0900, L500.4050, L3890.6100, L3890.6200 #### [facility] [address] [place], [address] Glucose [Mass/Vol] 105 mg/dL Normal 74-106 [facility] Comment on above: Result Comment: Fast ing Glucose result from 100 to 125 mg/dL suggests IMPAIRED HOMEOSTASIS per A.D.A. criteria. Performed By: #### L 3890.6300, L3400.8000, L100.0100, L400.2010, L501.0900, L500.4050, L3890.6100, L3890.6200 #### [facility] [address] [place], [address] Potassium [Moles/Vol] 3.9 mmol/L Normal 3.5-5.1 [facility] Comment on above: Performed By: #### L 3890.6300, L3400.8000, L100.0100, L400.2010, L501.0900, L500.4050, L3890.6100, L3890.6200 #### [facility] [address] [place], [address] Sodium [Moles/Vol] 132 mmol/L Low 136-145 [facility] Comment on above: Performed By: #### L 3890.6300, L3400.8000, L100.0100, L400.2011, L501.0900, L500.4050, L3890.6100, L3890.6200 #### [facility] [address] [place], [address] T PROT 7.4 g/dL Normal 6.4-8.2 [facility] Comment on above: Performed By: #### L 3890.6300, L3400.8000, L100.0100, L400.2011, L501.0900, L500.4050, L3890.6100, L3890.6200 #### [facility] [address] [place], [address] Urea nitrogen [Mass/Vol] 14 mg/dL Normal 7-18 [facility] Comment on above: Performed By: #### L 3890.6300, L3400.8000, L100.0100, L400.2011, L501.0900, L500.4050, L3890.6100, L3890.6200 #### [facility] [address] [place], [address] EXAGENon 01-11-2024 EXAGEN MAILED SPECIMEN Normal [facility] Comment on above: Performed By: #### L 801.1549 #### [facility] [address] [place], [address] Hepatitis B Surface Antibody on 01-11-2024 HEP B Surf Ab Non-Reactive Normal [facility] Comment on above: Result Comment: Non Reactive: Inconsistent with immunity less than <10 mIU/mL Reactive: Consistent with immunity greater than or equal to 10 mIU/mL Performed By: #### L 3890.6300, L3400.8000, L100.0100, L400.2011, L501.0900, L500.4050, L3890.6100, L3890.6200 #### [facility] [address] [place], [address] Hepatitis B Surface Antigeno n 01-11-2024 HEP B Surf Ag Non-Reactive Normal Nonreactive [facility] Comment on above: Performed By: #### L 3890.6300, L3400.8000, L100.0100, L400.2011, L501.0900, L500.4050, L3890.6100, L3890.6200 #### [facility] [address] [place], [address] Hepatitis C Antibodyon 01-10 Hepatitis C AB Non-Reactive Normal Nonreactive [facility] Comment on above: Result Comment: Non Reactive: < 0.8 Equivocal: >/= 0.8 to < 1.0 Reactive: >/= 1.0 The CDC requires that a reactive/equivocal HCV antibody result be sent out for confirmation. HCV Quant by PCR testing. Performed By: #### L 3890.6300, L3400.8000, L100.0100, L400.2011, L501.0900, L500.4050, L3890.6100, L3890.6200 #### [facility] [address] [place], [place], [address] Pelvis 1 or 2 Viewson 2023 Pelvis 1 or 2 Views [facility] [address] [place] [address] Pelvis 1 or 2 Views MR#: [id number] Acct: [id number] Name: FELISHA JOAQUIN Rep #: [id number] : 1945 F 78 From: Omid Villegas MD PCP: Dr. Trace Mendiola, DO Status: REG CLI Study: Pelvis 1 or 2 Views Date of Exam: 01/11/24 Exam# [id number] Ordering Dr: [place] [id number] STUDY: X-RAY - PELVIS REASON FOR EXAM: Female, 78 years old. Pain. TECHNIQUE: One view of the pelvis was obtained. COMPARISON: None. FINDINGS: Normal bowel gas pattern with air seen to the rectosigmoid. Calcified uterine fibroid with vascular calcifications and phleboliths. Osteopenia. 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 RAD/Pelvis 1 or 2 Views IMPRESSION: Osteopenia with osteoarthritic changes as described. Calcified uterine fibroid. No acute finding. Electronically Signed: Omid Villegas MD at 12:54 EDT , CC: Dr. Trace Mendiola DO; Dr. Love Gunter MD [employer] Helper: Signed Normal [facility] Protein+Creatinine Ratio,Uri neon 01-11-2024 PROT:CRE RATIO TNP Normal 0-200 [facility] Comment on above: Performed By: #### L 3890.6300, L3400.8000, L100.0100, L400.2010, L501.0900, L500.4050, L3890.6100, L3890.6200 #### [facility] [address] [place], [address] PROTEIN,UR.RAN. < 6.0 Normal <11.9 [facility] Comment on above: Performed By: #### L 3890.6300, L3400.8000, L100.0100, L400.2010, L501.0900, L500.4050, L3890.6100, L3890.6200 #### [facility] [address] [place], [address] UR CREAT 25.50 mg/dL Normal NO RANGE EST. [facility] Comment on above: Performed By: #### L 3890.6300, L3400.8000, L100.0100, L400.2011, L501.0900, L500.4050, L3890.6100, L3890.6200 #### [facility] [address] [place], [address] Urinalysis, Routine (Dipstic k)on 01-11-2024 BILIRUBIN URINE Negative Normal Negative [facility] Comment on above: Order Comment: CLEAN CATCH Performed By: #### L 3890.6300, L3400.8000, L100.0100, L400.2011, L501.0900, L500.4050, L3890.6100, L3890.6200 #### [facility] [address] [place], [address] Clarity (U) Clear Normal Clear [facility] Comment on above: Order Comment: CLEAN CATCH Performed By: #### L 3890.6300, L3400.8000, L100.0100, L400.2011, L501.0900, L500.4050, L3890.6100, L3890.6200 #### [facility] [address] [place], [address] Color (U) Straw Normal Yellow [facility] Comment on above: Order Comment: CLEAN CATCH Performed By: #### L 3890.6300, L3400.8000, L100.0100, L400.2011, L501.0900, L500.4050, L3890.6100, L3890.6200 #### [facility] [address] [place], [address] GLUCOSE, UR Normal Normal Normal [facility] Comment on above: Order Comment: CLEAN CATCH Performed By: #### L 3890.6300, L3400.8000, L100.0100, L400.2011, L501.0900, L500.4050, L3890.6100, L3890.6200 #### [facility] [address] [place], [address] KETONE UR Negative Normal Negative [facility] Comment on above: Order Comment: CLEAN CATCH Performed By: #### L 3890.6300, L3400.8000, L100.0100, L400.2011, L501.0900, L500.4050, L3890.6100, L3890.6200 #### [facility] [address] [place], [address] LEUK ESTERASE 25 /ul Abnormal Negative [facility] Comment on above: Order Comment: CLEAN CATCH Performed By: #### L 3890.6300, L3400.8000, L100.0100, L400.2011, L501.0900, L500.4050, L3890.6100, L3890.6200 #### [facility] [address] [place], [place], [id number] Nitrite Ql (U) Negative Normal Negative [facility] Comment on above: Order Comment: CLEAN CATCH Performed By: #### L 3890.6300, L3400.8000, L100.0100, L400.2010, L501.0900, L500.4050, L3890.6100, L3890.6200 #### [facility] [address] [place], [place], [address] [phone] OCCULT BLOOD-UR Negative Normal Negative [facility] Comment on above: Order Comment: CLEAN CATCH Performed By: #### L 3890.6300, L3400.8000, L100.0100, L400.2011, L501.0900, L500.4050, L3890.6100, L3890.6200 #### [facility] [address] [place], [address] pH UR 6.5 Normal 5.0 - 8.0 [facility] Comment on above: Order Comment: CLEAN CATCH Performed By: #### L 3890.6300, L3400.8000, L100.0100, L400.2011, L501.0900, L500.4050, L3890.6100, L3890.6200 #### [facility] [address] [place], [place], [phone] PROT DIPSTX Negative Normal Negative [facility] Comment on above: Order Comment: CLEAN CATCH Performed By: #### L 3890.6300, L3400.8000, L100.0100, L400.2011, L501.0900, L500.4050, L3890.6100, L3890.6200 #### [facility] [address] [place], [place], [id number] SP.GR. DIPSTX 1.010 Normal 1.002-1.030 [facility] Comment on above: Order Comment: CLEAN CATCH Performed By: #### L 3890.6300, L3400.8000, L100.0100, L400.2011, L501.0900, L500.4050, L3890.6100, L3890.6200 #### [facility] [address] [place], [place], [phone] UROBILI Normal Normal Normal [facility] Comment on above: Order Comment: CLEAN CATCH Performed By: #### L 3890.6300, L3400.8000, L100.0100, L400.2010, L501.0900, L500.4050, L3890.6100, L3890.6200 #### [facility] [address] [place], [place], [id number] XR SHOULDER RIGHT 2+ VIEWSon 01-05-2024 XR SHOULDER RIGHT 2+ VIEWS Interpreted By: Indira Levy III, STUDY: XR SHOULDER RIGHT 2+ VIEWS; ; 01/05/2024 2:07 pm INDICATION: Signs/Symptoms:pain. 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 ACCESSION NUMBER(S): [id number] ORDERING CLINICIAN: INDIRA LEVY FINDINGS: Multiple views right shoulder: Status post right reverse shoulder arthroplasty for fracture appropriate placement of components no janice-implant fracture or lucency. Greater tuberosity does appear to be partially healed. IMPRESSION: Status post right reverse shoulder arthroplasty MACRO: None Signed by: Indira Levy III 01/05/2024 2:40 PM Dictation workstation: [id number] XR Shoulder - right 2 Viewso n 01-05-2024 Status post right reverse shoulder arthroplasty MACRO: None Signed by: Indira Levy III 01/05/2024 2:40 PM Dictation workstation: [id number] [facility] MMODAL Interpreted By: Indira Garvey III, STUDY: XR SHOULDER RIGHT 2+ VIEWS; ; 01/05/2024 2:07 pm INDICATION: Signs/Symptoms:pain. 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 ACCESSION NUMBER(S): [id number] ORDERING CLINICIAN: INDIRA LEVY FINDINGS: Multiple views right shoulder: Status post right reverse shoulder arthroplasty for fracture appropriate placement of components no janice-implant fracture or lucency. Greater tuberosity does appear to be partially healed. MMODAL Indira Levy MD - 01/05/2024 Interpreted By: Indira Levy III, STUDY: XR SHOULDER RIGHT 2+ VIEWS; ; 01/05/2024 2:07 pm INDICATION: Signs/Symptoms:pain. 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 ACCESSION NUMBER(S): [id number] ORDERING CLINICIAN: INDIRA LEVY FINDINGS: Multiple views right shoulder: Status post right reverse shoulder arthroplasty for fracture appropriate placement of components no janice-implant fracture or lucency. Greater tuberosity does appear to be partially healed. IMPRESSION: Status post right reverse shoulder arthroplasty MACRO: None Signed by: Indira Levy III 01/05/2024 2:40 PM Dictation workstation: [id number] Work Phone: [facility] Work Phone: Radiology Study observation (narrative) [facility] Work Phone: XR WRIST RIGHT 3+ VIEWSon XR WRIST RIGHT 3+ VIEWS Interpreted By: Maryam Levy, STUDY: XR WRIST RIGHT 3+ VIEWS; ; 01/03/2024 2:09 pm INDICATION: Signs/Symptoms:pain. ,S66.811A Strain of other specified muscles, fascia and tendons at wrist and hand level, right hand, initial encounter COMPARISON: None. ACCESSION NUMBER(S): [id number] ORDERING CLINICIAN: MARYAM LUGO FINDINGS: AP lateral and oblique of the right wrist demonstrate distal ulna excision. 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 No shift in alignment IMPRESSION: As above MACRO: None Signed by: Maryam Levy 01/03/2024 2:28 PM Dictation workstation: [id number] [facility] XR Wrist - right 3 Viewson 0 01-03-2024 As above MACRO: None Signed by: Maryam Levy 01/03/2024 2:28 PM Dictation workstation: [id number] [facility] MMODAL Interpreted By: Maryam Levy, STUDY: XR WRIST RIGHT 3+ VIEWS; ; 01/03/2024 2:09 pm INDICATION: Signs/Symptoms:pain. ,S66.811A Strain of other specified muscles, fascia and tendons at wrist and hand level, right hand, initial encounter COMPARISON: None. ACCESSION NUMBER(S): [id number] ORDERING CLINICIAN: MARYAM LUGO FINDINGS: AP lateral and oblique of the right wrist demonstrate distal ulna excision. 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 No shift in alignment [facility] MMODAL Abiel Abdullahi MD - 01/03/2024 Interpreted By: Maryam Levy, STUDY: XR WRIST RIGHT 3+ VIEWS; ; 01/03/2024 2:09 pm INDICATION: Signs/Symptoms:pain. ,S66.811A Strain of other specified muscles, fascia and tendons at wrist and hand level, right hand, initial encounter COMPARISON: None. ACCESSION NUMBER(S): [id number] ORDERING CLINICIAN: MARYAM LEVY [facility] [place] FINDINGS: AP lateral and oblique of the right wrist demonstrate distal ulna excision. 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 No shift in alignment IMPRESSION: As above MACRO: None Signed by: Maryam Levy 01/03/2024 2:28 PM Dictation workstation: [id number] [facility] Work Phone: [facility] Work Phone: Radiology Study observation (narrative) [facility] Work Phone: XR Shoulder - right 2 Viewso n 11-13-2023 1. Right reverse tot al shoulder arthroplasty without hardware complication. Signed by: Lacy Montoya 11/13/2023 9:51 AM Dictation workstation: [id number] MMODAL Interpreted By: Lacy Montoya, STUDY: Right shoulder 3 views. INDICATION: Signs/Symptoms:pain. COMPARISON: 09/24/2023. ACCESSION NUMBER(S): [id number] ORDERING CLINICIAN: INDIRA LEVY FINDINGS: Patient is status post right reverse total shoulder arthroplasty for proximal humeral fracture. Hardware is intact without perihardware fractures or lucencies. No malalignment. MMODAL Lacy Montoya MD - 11/13/2023 Interpreted By: Lacy Montoya, STUDY: Right shoulder 3 views. INDICATION: Signs/Symptoms:pain. COMPARISON: 09/24/2023. ACCESSION NUMBER(S): [id number] ORDERING CLINICIAN: INDIRA LEVY FINDINGS: Patient is status post right reverse total shoulder arthroplasty for proximal humeral fracture. Hardware is intact without perihardware fractures or lucencies. No malalignment. IMPRESSION: 1. Right reverse total shoulder arthroplasty without hardware complication. Signed by: Lacy Montoya 11/13/2023 9:51 AM Dictation workstation: [id number] [facility] Work Phone: XR Shoulder - right 2 ViewsO rdered By: Lacy Montoya on 11-13-2023 [facility] Work Phone: XR SHOULDER RIGHT 2+ VIEWSon 11-12-2023 XR SHOULDER RIGHT 2+ VIEWS Interpreted By: Lacy Montoya, STUDY: Right shoulder 3 views. INDICATION: Signs/Symptoms:pain. COMPARISON: 09/24/2023. ACCESSION NUMBER(S): [id number] ORDERING CLINICIAN: INDIRA LEVY FINDINGS: Patient is status post right reverse total shoulder arthroplasty for proximal humeral fracture. Hardware is intact without perihardware fractures or lucencies. No malalignment. IMPRESSION: 1. Right reverse total shoulder arthroplasty without hardware complication. Signed by: Lacy Montoya 11/13/2023 9:51 AM Dictation workstation: [id number] [facility] XR Shoulder - right 2 Viewso n 11-12-2023 Radiology Study observation (narrative) [facility] Work Phone: [facility] FELISHA JOAQUIN ([id number]) 1945 F Date Time Provider Department 11/10/23 [facility] During your visit today, we recorded the following information about you: Alta Olivarez RN 11/10/2023 1:54 PM Signed Pat from [facility] calling and states pt was referred to them. Pat states she is in need of patient's demographics sheet and Medicare card. The one they received is black and unable to read it. Demographics sheet and copy of [employer] Medicare card faxed to [phone]. Allergies As of Date: 11/10/2023 (No Known Allergies) Date Reviewed: 09/28/2023 Reviewed by: Chyna Grimm APRN.VEGETABLE PREPARER - Fully Assessed Prescriptions as of 11/10/2023 - furosemide (LASIX) 40 mg tablet Take 1 tablet by mouth once daily. - pantoprazole DR (PROTONIX) 40 mg tablet Take 1 tablet by mouth once daily. - prednisoLONE acetate (PRED FORTE, ECONOPRED PLUS) 1 % ophthalmic suspension Use 1 Drop in the right eye four times daily. - ketorolac (ACULAR) 0.5 % ophthalmic solution Use 1 Drop in the right eye four times daily. - docusate sodium (STOOL SOFTENER) 100 mg capsule Take 1 capsule by mouth twice daily. - Fexofenadine-Pseudoephe drine (ELSIE-D 24 HOUR) 180-240 mg per 24 hr tablet Take 1 tablet by mouth once daily as needed (sinus/cold symptoms). - KLOR-CON 10 10 mEq tablet - Naproxen SR (EC-NAPROSYN) 500 mg EC tablet Take 1 tablet by mouth twice daily as needed. - enalapril (VASOTEC) 2.5 mg tablet Take 2.5 mg by mouth once daily. - atorvastatin (LIPITOR) 20 mg tablet Take 1 tablet by mouth once daily. For cholesterol. - carvedilol (COREG) 3.125 mg tablet Take 1 tablet by mouth twice daily. - aspirin, enteric coated 81 mg EC tablet Take 81 mg by mouth once daily. - ascorbic acid, vitamin C, (VITAMIN C) 500 mg tablet Take 500 mg by mouth once daily. 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] 02/07/2016 Visual field loss [H53.40] 03/20/2016 Dry eye syndrome [H04.129] 04/07/2016 Combined forms of age-related cataract of both *04/07/2016 Vitreous floaters of both eyes [H43.393] 04/07/2016 Punctate keratitis, bilateral [H16.143] 01/27/2017 Obesity, Class III, BMI 40-49.9 (morbid obesity*09/06/2017 Epiretinal membrane (ERM) of both eyes [H35.373]10/13/2019 Essential hypertension [I10] 10/13/2019 Hemangioma of eyelid [D18.01] 10/13/2019 Status post cataract extraction and insertion o*01/19/2020 Status post cataract extraction and insertion o*01/19/2020 Dyslipidemia [E78.5] 02/17/2022 Fatigue [R53.83] 02/17/2022 Vitamin D deficiency [E55.9] 02/17/2022 Medicare annual wellness visit, subsequent [Z00*02/17/2022 Encounter Status:Closed by ALTA OLIVAREZ on 11/10/23 Normal [facility] FL FLUORO IMAGES NO CHARGEon 10-07-2023 FL FLUORO IMAGES NO CHARGE These images are not reportable by radiology and will not be interpreted by Radiologists. Normal [facility] XR tomography Unspecified jeny dy regionon 10-07-2023 These images are not reportable by radiology and will not be interpreted by Radiologists. IMAGING Renal function 2000 panelon 10-05-2023 Albumin [Mass/Vol] 4.1 g/dL Normal 3.9-4.9 [facility] Comment on above: Order Comment: Speci men Type: BLOOD SPECIMENOrdering Facility: [facility] Address: [address] [place] [address] Performed By: #### 2 4362-6 ####[facility] LABCLIA [id number] [place] [address] [place] Anion gap [Moles/Vol] 12 mmol/L Normal 8-15 [facility] Comment on above: Order Comment: Speci men Type: BLOOD SPECIMENOrdering Facility: [facility] Address: [address] [place] [address] Performed By: #### 2 4362-6 ####[facility] LABIA [id number] [place] [address] [place] Calcium [Mass/Vol] 10.2 mg/dL Normal 8.5-10.2 [facility] Comment on above: Order Comment: Speci men Type: BLOOD SPECIMENOrdering Facility: [facility] Address: [address] [place] [address] Performed By: #### 2 4362-6 ####[facility] LABCLIA [id number] [place] [address] [place] Chloride [Moles/Vol] 97 mmol/L Low 98-107 [facility] Comment on above: Order Comment: Speci men Type: BLOOD SPECIMENOrdering Facility: [facility] Address: [address] [place] [address] Performed By: #### 2 4362-6 ####[facility] LABCLIA [id number] [place] [address] [place] CO2 [Moles/Vol] 25 mmol/L Normal 22-30 [facility] Comment on above: Order Comment: Speci men Type: BLOOD SPECIMENOrdering Facility: [facility] Address: [address] [place] [address] Performed By: #### 2 4362-6 ####[facility] LABCLIA [id number] [place] [address] [place] Creatinine [Mass/Vol] 0.95 mg/dL Normal 0.58-0.96 [facility] Comment on above: Order Comment: Speci men Type: BLOOD SPECIMENOrdering Facility: [facility] Address: [address] [place] [address] Performed By: #### 2 4362-6 ####[facility] LABCLIA [id number] [place] [address] [place] Creatinine and Glomerular filtration rate.predicted panel (S/P/Bld) 61 mL/min/1.73m??? Normal >=60 [facility] Comment on above: Order Comment: Speci men Type: BLOOD SPECIMENOrdering Facility: [facility] Address: [address] [place] [address] Result Comment: Parul mated Glomerular Filtration Rate (eGFR) is calculated using the 2020 CKD-EPI creatinine equation. This equation utilizes serum creatinine, sex, and age as parameters. The creatinine assay has traceable calibration to isotope dilution-mass spectrometry. Refer to KDIGO guidelines for clinical interpretation. In patients with unstable renal function, e.g. those with acute kidney injury, the eGFR may not accurately reflect actual GFR. Performed By: #### 2 4362-6 ####[facility] LABIA [id number] [place] [address] [place] Glucose [Mass/Vol] 92 mg/dL Normal 74-99 [facility] Comment on above: Order Comment: Ever zaldivar Type: BLOOD SPECIMENOrdering Facility: [facility] Address: [address] [place] [address] Result Comment: The [place] Diabetes Association (ADA) provides guidance for cutoff values for fasting glucose and random glucose. The ADA defines fasting as no caloric intake for at least 8 hours. Fasting plasma glucose results between 100 to 125 mg/dL indicate increased risk for diabetes (prediabetes). Fasting plasma glucose results greater than or equal to 126 mg/dL meet the criteria for diagnosis of diabetes. In the absence of unequivocal hyperglycemia, results should be confirmed by repeat testing. In a patient with classic symptoms of hyperglycemia or hyperglycemic crisis, random plasma glucose results greater than or equal to 200 mg/dL meet the criteria for diagnosis of diabetes. Reference: Standards of Medical Care in Diabetes 2016, [place] [employer] Association. Diabetes Care. 2016.39(Suppl 1). Performed By: #### 2 4362-6 ####[facility] LABCLIA [id number] [place] [address] [place] Phosphate [Mass/Vol] 3.2 mg/dL Normal 2.7-4.8 [facility] Comment on above: Order Comment: Ever zaldivar Type: BLOOD SPECIMENOrdering Facility: [facility] Address: [address] [place] [address] Performed By: #### 2 4362-6 ####[facility] LABCLIA [id number] [place] [address] [place] Potassium [Moles/Vol] 4.0 mmol/L Normal 3.7-5.1 [facility] Comment on above: Order Comment: Speci men Type: BLOOD SPECIMENOrdering Facility: [facility] Address: [address] [place] [address] Performed By: #### 2 4362-6 ####[facility] LABCLIA [id number] [place] [address] [place] Sodium [Moles/Vol] 134 mmol/L Low 136-144 [facility] Comment on above: Order Comment: Speci men Type: BLOOD SPECIMENOrdering Facility: [facility] Address: [address] [place] [address] Performed By: #### 2 4362-6 ####[facility] LABCLIA [id number] [place] [address] [place] Urea nitrogen [Mass/Vol] 16 mg/dL Normal 7-21 [facility] Comment on above: Order Comment: Speci men Type: BLOOD SPECIMENOrdering Facility: [facility] Address: [address] [place] [address] Performed By: #### 2 4362-6 ####[facility] LABIA [id number] [place] [address] [place] CNOVon 09-28-2023 CNOV Office Visit (PIPPAWS ) FELISHA JOAQUIN ([id number]) 1945 F Date Time Provider Department 09/28/23 7:00 AM [facility] During your visit today, we recorded the following information about you: Pulse Respiration Blood pressure Weight 78/minute 18/minute 136/82 105 kg Chyna GrimmVICKY.VEGETABLE PREPARER 10/05/2023 4:52 PM Addendum Chief Complaint Patient presents with: Pre-Op Exam: Tendon repair right hand on 10/06. Swelling in bita legs. HPI Felisha Joaquin is a 78 year old female who presents here today for Above Complaints.. Is having right hand tendon repair on 10/[address] Maryam Levy. Had surgery on 08/10/2023 and this went well. Requesting preop exam for repair of her right shoulder. Surgery is scheduled at [facility] on 08/09. Has never had difficulty with anesthesia or difficult intubation. Denies CP, dizziness, SOB. Overall feels good except her arm. Is taking an ibuprofen rx for pain, this is helpful. Very difficult to dress and undress, bathe, all ADLs. Daughter is able to help with things she is unable to do. Has had 2 colonoscopies and wakes up with them. Had knee surgery and was able to feel the sawing. States she may need a little extra for sedation. Has swelling to both of her lower legs, this is chronic. Right is worse than left. Has been going on, on a little bit of a worse scale for a few months. Isn't necessarily painful. Thinks she has this because she's not very active. Has furosemide at home prom an old previous rx that she has been taking prn-this is not on her medication list-she does not know the dose. Has been taking it regularly for the past month with some temporary improvement. Past medical history, appointments, medications, allergies reviewed. Previous Medical History PAST MEDICAL HISTORY Diagnosis Date Acid reflux Arrhythmia Arthritis Coronary artery disease Does use hearing aid Heart attack (HCC) Hypertension Osteopenia 07/2013 left hip on DEXA Rash of face S/P YAG capsulotomy, left 08/12/2022 Seasonal allergies Snoring Previous Surgical History PAST SURGICAL HISTORY Procedure Laterality Date COLONOSCOPY 2006 small polyp COLONOSCOPY FLX DX W/COLLJ SPEC WHEN PFRMD 08/02/14 Colonoscopy COLONOSCOPY FLX DX W/COLLJ SPEC WHEN PFRMD 11/27/2019 Colonoscopy ESOPHAGOGASTRODUODENOSC OPY TRANSORAL DIAGNOSTIC 11/27/2019 EGD PAST SURGICAL HISTORY OF 01/2013 left TKA PAST SURGICAL HISTORY OF 07/2012 right TKA PAST SURGICAL HISTORY OF 2006 ORIF wrist, right PAST SURGICAL HISTORY OF 2002 meniscectomy right knee XCAPSL CTRC RMVL INSJ IO LENS PROSTH W/O ECP Right 01/04/2020 Cataract Extraction with PC IOL 21.5 D XCAPSL CTRC RMVL INSJ IO LENS PROSTH W/O ECP Left Cataract Extraction with PC IOL 21.0 D Family History FAMILY HISTORY Problem Relation Age of Onset Arthritis Mother Heart Mother Hypertension Mother Arthritis Father Heart Father Hypertension Father Cancer Sister Breast Cancer Sister 56 No Ocular Disease No Family History Diabetes No Family History Patient Allergies ALLERGIES No Known Allergies Current Medications Current Outpatient Medications on File Prior to Visit Medication Sig pantoprazole DR (PROTONIX) 40 mg tablet Take 1 tablet by mouth once daily. prednisoLONE acetate (PRED FORTE, ECONOPRED PLUS) 1 % ophthalmic suspension Use 1 Drop in the right eye four times daily. ketorolac (ACULAR) 0.5 % ophthalmic solution Use 1 Drop in the right eye four times daily. docusate sodium (STOOL SOFTENER) 100 mg capsule Take 1 capsule by mouth twice daily. Fexofenadine-Pseudoephe drine (ELSIE-D 24 HOUR) 180-240 mg per 24 hr tablet Take 1 tablet by mouth once daily as needed (sinus/cold symptoms). KLOR-CON 10 10 mEq tablet Naproxen SR (EC-NAPROSYN) 500 mg EC tablet Take 1 tablet by mouth twice daily as needed. enalapril (VASOTEC) 2.5 mg tablet Take 2.5 mg by mouth once daily. atorvastatin (LIPITOR) 20 mg tablet Take 1 tablet by mouth once daily. For cholesterol. carvedilol (COREG) 3.125 mg tablet Take 1 tablet by mouth twice daily. aspirin, enteric coated 81 mg EC tablet Take 81 mg by mouth once daily. ascorbic acid, vitamin C, (VITAMIN C) 500 mg tablet Take 500 mg by mouth once daily. No current facility-administered medications on file prior to visit. Social History Social History Tobacco Use Smoking status: Never Smokeless tobacco: Never Vaping Use Vaping Use: Never used Substance Use Topics Alcohol use: No Drug use: Never Review of Symptoms REVIEW OF SYSTEMS See HPI, otherwise negative EXAM: BP 136/82 (BP Site: Left Arm, BP Position: Sitting, BP Cuff Size: Regular Adult) Pulse 78 Resp 18 Wt 105 kg (231 lb 6.4 oz) SpO2 94% BMI 39.72 kg/m? General Appearance: Well appearing, alert, in no acute distress, well-hydrated, well nourished.. Ears: Exter (more content not included)... Normal [facility] CNPNon 09-28-2023 CNPN Telephone (FAMPWS) FELISHA JOAQUIN ([id number]) 1945 F Date Time Provider Department 09/28/23 [facility] During your visit today, we recorded the following information about you: Chyna Grimm APRN.CNP 09/28/2023 7:42 AM Signed Please obtain surgery clearance forms from patient's surgery office. DIXON Caicedo [place], [place] 09/28/2023 1:00 PM Signed Attempted to contact office number but other line busy. Will need to try again. CLARK Encarnacion [place], [place] 09/30/2023 1:48 PM Signed Left detailed message on [employer] to fax pre-op form to [phone]. CLARK Encarnacion [place], [place] 10/05/2023 4:46 PM Signed Called and spoke with nurse at [facility] office and office note from 09/27 needs to state pt is cleared for surgery. No pre-op forms. CLARK Encarnacion Rebekah, APRN.CNP 10/05/2023 4:53 PM Signed 09/27 note addended. DIXON Caicedo [place], MA 10/06/2023 7:38 AM Signed Note faxed Nicci Merino [place] Allergies As of Date: 09/28/2023 (No Known Allergies) Date Reviewed: 09/28/2023 Reviewed by: Sirisha, Chyna, SNOUT PULLER.VEGETABLE PREPARER - Fully Assessed Reason for Visit: Forms [913] Prescriptions as of 10/06/2023 - furosemide (LASIX) 40 mg tablet Take 1 tablet by mouth once daily. - pantoprazole DR (PROTONIX) 40 mg tablet Take 1 tablet by mouth once daily. - prednisoLONE acetate (PRED FORTE, ECONOPRED PLUS) 1 % ophthalmic suspension Use 1 Drop in the right eye four times daily. - ketorolac (ACULAR) 0.5 % ophthalmic solution Use 1 Drop in the right eye four times daily. - docusate sodium (STOOL SOFTENER) 100 mg capsule Take 1 capsule by mouth twice daily. - Fexofenadine-Pseudoephe drine (ELSIE-D 24 HOUR) 180-240 mg per 24 hr tablet Take 1 tablet by mouth once daily as needed (sinus/cold symptoms). - KLOR-CON 10 10 mEq tablet - Naproxen SR (EC-NAPROSYN) 500 mg EC tablet Take 1 tablet by mouth twice daily as needed. - enalapril (VASOTEC) 2.5 mg tablet Take 2.5 mg by mouth once daily. - atorvastatin (LIPITOR) 20 mg tablet Take 1 tablet by mouth once daily. For cholesterol. - carvedilol (COREG) 3.125 mg tablet Take 1 tablet by mouth twice daily. - aspirin, enteric coated 81 mg EC tablet Take 81 mg by mouth once daily. - ascorbic acid, vitamin C, (VITAMIN C) 500 mg tablet Take 500 mg by mouth once daily. 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] 02/07/2016 Visual field loss [H53.40] 03/20/2016 Dry eye syndrome [H04.129] 04/07/2016 Combined forms of age-related cataract of both *04/07/2016 Vitreous floaters of both eyes [H43.393] 04/07/2016 Punctate keratitis, bilateral [H16.143] 01/27/2017 Obesity, Class III, BMI 40-49.9 (morbid obesity*09/06/2017 Epiretinal membrane (ERM) of both eyes [H35.373]10/13/2019 Essential hypertension [I10] 10/13/2019 Hemangioma of eyelid [D18.01] 10/13/2019 Status post cataract extraction and insertion o*01/19/2020 Status post cataract extraction and insertion o*01/19/2020 Dyslipidemia [E78.5] 02/17/2022 Fatigue [R53.83] 02/17/2022 Vitamin D deficiency [E55.9] 02/17/2022 Medicare annual wellness visit, subsequent [Z00*02/17/2022 Encounter Status:Closed by NICCI MERINO on 10/06/[address] [facility] FELISHA JOAQUIN ([id number]) 1945 F Date Time Provider Department 09/28/23 [facility] During your visit today, we recorded the following information about you: Clara De Dios LPN 09/28/2023 8:41 AM Signed Patient calls stating that she was to confirm that she is taking furosemide 20 mg daily. She did ask that if she is to continue with this daily she would like a 90 day supply sent to [facility]. Chyna Grimm APRN.VEGETABLE PREPARER 09/28/2023 8:44 AM Signed I would like her to increase her dose to 40mg daily. If she has 20mg tabs still, ok to take 2 of these. She should have her potassium level checked in a week, prior to her surgery. I've placed the order for this. The following approved medication requests have been transmitted electronically. Requested Prescriptions Signed Prescriptions Disp Refills furosemide (LASIX) 40 mg tablet 90 tablet 0 Sig: Take 1 tablet by mouth once daily. Authorizing Provider: CHYNA GRIMM APRN.Nicci Mchugh MA 09/28/2023 11:20 AM Signed Pt informed, verbalized understanding. Nicci Merino MA Allergies As of Date: 09/28/2023 (No Known Allergies) Date Reviewed: 09/28/2023 Reviewed by: Chyna Grimm APRN.CRESENCIO - Fully Assessed Reason for Visit: Medication Update [0707] Primary Visit Diagnosis:Bilateral lower extremity edema [R60.0] Other Visit Diagnosis:Essential hypertension [I10] Order(s):furosemide (LASIX) 40 mg tabletTake 1 tablet by mouth once daily.Disp: 90 tabletRfl: 0 RENAL FUNCTION PANEL [SQRFP] Order #: [id number] FUTURE Prescriptions as of 09/28/2023 - furosemide (LASIX) 40 mg tablet Take 1 tablet by mouth once daily. - pantoprazole DR (PROTONIX) 40 mg tablet Take 1 tablet by mouth once daily. - prednisoLONE acetate (PRED FORTE, ECONOPRED PLUS) 1 % ophthalmic suspension Use 1 Drop in the right eye four times daily. - ketorolac (ACULAR) 0.5 % ophthalmic solution Use 1 Drop in the right eye four times daily. - docusate sodium (STOOL SOFTENER) 100 mg capsule Take 1 capsule by mouth twice daily. - Fexofenadine-Pseudoephe drine (ELSIE-D 24 HOUR) 180-240 mg per 24 hr tablet Take 1 tablet by mouth once daily as needed (sinus/cold symptoms). - KLOR-CON 10 10 mEq tablet - Naproxen SR (EC-NAPROSYN) 500 mg EC tablet Take 1 tablet by mouth twice daily as needed. - enalapril (VASOTEC) 2.5 mg tablet Take 2.5 mg by mouth once daily. - atorvastatin (LIPITOR) 20 mg tablet Take 1 tablet by mouth once daily. For cholesterol. - carvedilol (COREG) 3.125 mg tablet Take 1 tablet by mouth twice daily. - aspirin, enteric coated 81 mg EC tablet Take 81 mg by mouth once daily. - ascorbic acid, vitamin C, (VITAMIN C) 500 mg tablet Take 500 mg by mouth once daily. 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] 02/07/2016 Visual field loss [H53.40] 03/20/2016 Dry eye syndrome [H04.129] 04/07/2016 Combined forms of age-related cataract of both *04/07/2016 Vitreous floaters of both eyes [H43.393] 04/07/2016 Punctate keratitis, bilateral [H16.143] 01/27/2017 Obesity, Class III, BMI 40-49.9 (morbid obesity*09/06/2017 Epiretinal membrane (ERM) of both eyes [H35.373]10/13/2019 Essential hypertension [I10] 10/13/2019 Hemangioma of eyelid [D18.01] 10/13/2019 Status post cataract extraction and insertion o*01/19/2020 Status post cataract extraction and insertion o*01/19/2020 Dyslipidemia [E78.5] 02/17/2022 Fatigue [R53.83] 02/17/2022 Vitamin D deficiency [E55.9] 02/17/2022 Medicare annual wellness visit, subsequent [Z00*02/17/2022 Prescriptions ordered this encounter Disp Refills Start End FUROSEMIDE 40 MG TABLET 90 t* 0 09/28/2023 12/27/2023 Route: ORAL Sig: Take 1 tablet by mouth once daily. Medications Discontinued During This Encounter Prescriptions - furosemide (LASIX) 20 mg tablet (Discontinued) Take 20 mg by mouth once daily. Encounter Status:Closed by WILBER NICCI on 09/28/23 [facility] XR SHOULDER RIGHT 2+ VIEWSon 09-24-2023 XR SHOULDER RIGHT 2+ VIEWS Interpreted By: Indira Levy III, STUDY: XR SHOULDER RIGHT 2+ VIEWS; ; 09/24/2023 3:12 pm INDICATION: Signs/Symptoms:pain. COMPARISON: None. ACCESSION NUMBER(S): [id number] ORDERING CLINICIAN: INDIRA LEVY FINDINGS: Three views right shoulder: Status post right reverse shoulder arthroplasty for fracture no signs of hardware failure or loosening. Continued demonstration of mildly displaced tuberosities. Lytic or blastic lesions appreciated no Janice implant lucency. Moderate inferior tilt noted about the glenosphere similar in comparison to prior x-rays IMPRESSION: Status post right reverse shoulder arthroplasty for fracture MACRO: None Signed by: Indira Levy III 09/24/2023 4:18 PM Dictation workstation: [id number] [facility] Comment on above: Order Comment: Grash ey, axillary, scap Y XR Shoulder - right 2 Viewso n 09-24-2023 Status post right reverse shoulder arthroplasty for fracture MACRO: None Signed by: Indira Levy III 09/24/2023 4:18 PM Dictation workstation: [id number] [facility] Interpreted By: Indira Garvey III, STUDY: XR SHOULDER RIGHT 2+ VIEWS; ; 09/24/2023 3:12 pm INDICATION: Signs/Symptoms:pain. COMPARISON: None. ACCESSION NUMBER(S): [id number] ORDERING CLINICIAN: INDIRA LEVY FINDINGS: Three views right shoulder: Status post right reverse shoulder arthroplasty for fracture no signs of hardware failure or loosening. Continued demonstration of mildly displaced tuberosities. Lytic or blastic lesions appreciated no Janice implant lucency. Moderate inferior tilt noted about the glenosphere similar in comparison to prior x-rays [facility] Indira Levy MD - 09/24/2023 Interpreted By: Indira Levy III, STUDY: XR SHOULDER RIGHT 2+ VIEWS; ; 09/24/2023 3:12 pm INDICATION: Signs/Symptoms:pain. COMPARISON: None. ACCESSION NUMBER(S): [id number] ORDERING CLINICIAN: INDIRA LEVY FINDINGS: Three views right shoulder: Status post right reverse shoulder arthroplasty for fracture no signs of hardware failure or loosening. Continued demonstration of mildly displaced tuberosities. Lytic or blastic lesions appreciated no Janice implant lucency. Moderate inferior tilt noted about the glenosphere similar in comparison to prior x-rays IMPRESSION: Status post right reverse shoulder arthroplasty for fracture MACRO: None Signed by: Indira Levy III 09/24/2023 4:18 PM Dictation workstation: [id number] [facility] Work Phone: [facility] Work Phone: Radiology Study observation (narrative) [facility] Work Phone: C reactive proteinon 024 CRP [Mass/Vol] 0.36 mg/dL Normal <1.00 [facility] Comment on above: Performed By: #### 1 988-5 #### PARKER ARGUEAT ([id number]) [facility] ([facility]) [address] [place] [address] Comprehensive metabolic 2000 panelon 09-09-2023 Albumin BCP dye [Mass/Vol] 4.1 g/dL Normal 3.4-5.0 [facility] Comment on above: Performed By: #### 2 4323-8 #### PARKER ARGUETA ([id number]) [facility] ([facility]) [address] [place] [address] ALP [Catalytic activity/Vol] 113 U/L Normal 33-136 [facility] Comment on above: Performed By: #### 2 4323-8 #### PARKER ARGUETA ([id number]) [facility] ([facility]) [address] [place] [address] ALT With P-5'-P [Catalytic activity/Vol] 15 U/L Normal 7-45 [facility] Comment on above: Result Comment: Claribel ents treated with Sulfasalazine may generate falsely decreased results for ALT. Performed By: #### 2 4323-8 #### PARKER ARGUETA ([id number]) [facility] ([facility]) [address] [place] [address] Anion gap [Moles/Vol] 12 mmol/L Normal 10-20 [facility] Comment on above: Performed By: #### 2 4323-8 #### PARKER ARGUETA ([id number]) [facility] ([facility]) [address] [place] [address] AST With P-5'-P [Catalytic activity/Vol] 22 U/L Normal 9-39 [facility] Comment on above: Performed By: #### 2 4323-8 #### PARKER ARGUETA ([id number]) [facility] ([facility]) [address] [place] [address] Bilirubin [Mass/Vol] 0.4 mg/dL Normal 0.0-1.2 [facility] Comment on above: Performed By: #### 2 432-8 #### PARKER ARGUETA ([id number]) [facility] ([facility]) [address] [place] [address] Calcium [Mass/Vol] 9.8 mg/dL Normal 8.6-10.3 [facility] Comment on above: Performed By: #### 2 4323-8 #### PARKER ARGUETA ([id number]) [facility] ([facility]) [address] [place] [address] Chloride [Moles/Vol] 103 mmol/L Normal 98-107 [facility] Comment on above: Performed By: #### 2 4323-8 #### PARKER ARGUETA ([id number]) [facility] ([facility]) [address] [place] [address] CO2 [Moles/Vol] 25 mmol/L Normal 21-32 [facility] Comment on above: Performed By: #### 2 4323-8 #### PARKER ARGUETA ([id number]) [facility] ([facility]) [address] [place] [address] Creatinine [Mass/Vol] 0.85 mg/dL Normal 0.50-1.05 [facility] Comment on above: Performed By: #### 2 4323-8 #### PARKER ARGUETA ([id number]) [facility] ([facility]) [address] [place] [address] Glomerular filtration rate/1.73 sq M.predicted 69 mL/min/1.73m*2 Normal >60 [facility] Comment on above: Result Comment: Calc ulations of estimated GFR are performed using the 2020 CKD-EPI Study Refit equation without the race variable for the IDMS-Traceable creatinine methods. https://jasn.asnjournals.org/content/early/ASN.913672 0751 Performed By: #### 2 4323-8 #### PARKER ARGUETA ([id number]) [facility] ([facility]) [address] [place] [address] Glucose [Mass/Vol] 105 mg/dL High 74-99 [facility] Comment on above: Performed By: #### 2 4323-8 #### PARKER ARGUETA ([id number]) [facility] ([facility]) [address] [place] [address] Potassium [Moles/Vol] 4.2 mmol/L Normal 3.5-5.3 [facility] Comment on above: Performed By: #### 2 4323-8 #### PARKER ARGUETA ([id number]) [facility] ([facility]) [address] [place] [address]48 Protein [Mass/Vol] 7.1 g/dL Normal 6.4-8.2 [facility] Comment on above: Performed By: #### 2 4323-8 #### PARKER ARGUETA ([id number]) [facility] ([facility]) [address] [place] [address] Sodium [Moles/Vol] 136 mmol/L Normal 136-145 [facility] Comment on above: Performed By: #### 2 4323-8 #### PARKER ARGUETA ([id number]) [facility] ([facility]) [address] [place] [address]28[address] Urea nitrogen [Mass/Vol] 18 mg/dL Normal 6-23 [facility] Comment on above: Performed By: #### 2 4323-8 #### PARKER ARGUETA ([id number]) [facility] ([facility]) [facility] [place] [address] Cyclic citrullinated peptide Ab.IgGon 09-09-2023 Cyclic citrullinated peptide IgG Qn 7 U/mL High <3 [facility] Comment on above: Order Comment: THE T EST FOR ANTIBODIES SPECIFIC FOR CYCLIC CITRULLINATED PEPTIDE (CCP) HAS SHOWN TO BE VALUABLE IN THE DIAGNOSIS OF RHEUMATOID ARTHRITIS. THE DIAGNOSTIC VALUE OF ANTIBODIES TO CCP IN JUVENILE RHEUMATOID ARTHRITIS PATIENTS HAS NOT BEEN DETERMINED. ANTIBODIES TO CENTROMERE OR SS-A AND MYELOMA IGG MAY BE REACTIVE IN THIS ASSAY. Result Comment: NEGA TIVE < 3 U/ML POSITIVE >=3 U/ML Performed By: #### 3 3935-8 #### KIMBERLEY Quintanilla ([id number]) [facility] ([facility]) [address] [place] [address] DNA double strand Abon 09-08 DNA double strand Ab Qn (S) [IU]/mL Normal <5.0 [facility] Comment on above: Result Comment: NEGA TIVE: <= 4 IU/ML EQUIVOCAL: 5- 9 IU/ML POSITIVE: >=10 IU/ML Performed By: #### 5 130-0 #### KIMBERLEY Quintanilla ([id number]) [facility] ([facility]) [address] [place] [address] ESR Westergren method (Bld) [Velocity]on 09-09-2023 ESR (Bld) [Velocity] 59 mm/h High 0-30 [facility] Comment on above: Performed By: #### 4 537-7 #### PARKER ARGUETA ([id number]) [facility] ([facility]) [facility] [place] [address] MR WRIST RIGHT WO IV CONTRAS Ton 09-09-2023 MR WRIST RIGHT WO IV CONTRAST Interpreted By: Elyssa Tierney, STUDY: MRI of the right wrist without IV contrast; 09/09/2023 5:11 pm INDICATION: Signs/Symptoms:polyarth ralgia. COMPARISON: Radiographs 09/03/2023. ACCESSION NUMBER(S): [id number] ORDERING CLINICIAN: MARYAM OHLIGER UPPERMAN TECHNIQUE: MR imaging of the right wrist was obtained without administration of intravenous contrast medium. FINDINGS: TENDONS: There is severe attenuation of the 5th extensor digitorum communis and extensor digiti minimi tendons at the level of distal carpal row (series 1020, image 21 of 31). Additional attenuation and irregularity of the 4th extensor digitorum tendon at the same level. Moderate tenosynovitis of the 4th and 5th extensor compartments. The remaining extensor tendons are intact. The flexor tendons are intact. LIGAMENTS: The scapholunate and lunotriquetral ligaments and the triangular fibrocartilage complex are obscured by sensitivity artifact. JOINTS: Multifocal subchondral cystic/reactive change throughout the carpal bones and carpometacarpal joints. Fragmentation of the ulnar styloid and udkqcljl-en-bkaoly flattening of the lunate probably posttraumatic. Severe DRUJ osteoarthritis with small DRUJ effusion. OSSEOUS STRUCTURES: Remote distal radial fracture ORIF with significant severe artifact. No acute fracture or contusion. No marrow replacing lesion. Multifocal erosions throughout the carpal bones and 2nd through 5th metacarpal bases. SOFT TISSUES: No muscle tear or atrophy.The median nerve in the carpal tunnel is unremarkable. The ulnar nerve in Guyon's canal is unremarkable. 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 Additional disruption of the 4th extensor digitorum tendon. Moderate 4th and 5th extensor compartment tenosynovitis. 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 MACRO: None Signed by: Elyssa Tierney 09/10/2023 11:40 AM Dictation workstation: [id number] [facility] Nuclear Abon 09-09-2023 Nuclear Ab Hep2 substrate Ql (S) Positive Abnormal Negative [facility] Comment on above: Result Comment: The Antinuclear Antibody (NOEMY) test was performed using indirect immunofluorescence assay with HEp-2 cells slide. Performed By: #### 5 9069-5 #### KIMBERLEY Quintanilla ([id number]) [facility] ([facility]) [address] [place] [address] Nuclear Ab Hep2 substrate Ql (S)on 09-09-2023 NOEMY PATTERN Homogeneous Normal [facility] Comment on above: Performed By: #### 5 9069-5 #### KIMBERLEY Quintanilla ([id number]) [facility] ([facility]) [address] [place] [address] Nuclear Ab IF (S) [Titer] 1:160 Normal [facility] Comment on above: Performed By: #### 5 9069-5 #### KIMBERLEY Quintanilla ([id number]) [facility] ([facility]) [address] [place] [address]56 Rheumatoid factoron 09-09-19 24 Rheumatoid factor Nephelometry Qn (S) 27 IU/mL High 0-15 [facility] Comment on above: Performed By: #### 1 5205-8 #### KIMBERLEY Quintanilla ([id number]) [facility] ([facility]) [address] [place] [address]13[address] Urateon 09-09-2023 Urate [Mass/Vol] 5.6 mg/dL Normal 2.3-6.7 [facility] Comment on above: Result Comment: Pat puncture immediately after or during the administration of Metamizole may lead to falsely low results. Testing should be performed immediately prior to Metamizole dosing. Performed By: #### 3 084-1 #### PARKER ARGUETA ([id number]) [facility] ([facility]) [address] [place], [place] [id number] Urinalysis complete panel (U )on 09-09-2023 Appearance (U) Hazy Normal Clear [facility] Comment on above: Performed By: #### 2 4356-8 #### PARKER ARGUETA ([id number]) [facility] ([facility]) [address] [place] [address] Bilirubin (U) [Mass/Vol] Negative Normal NEGATIVE [facility] Comment on above: Performed By: #### 2 4356-8 #### PARKER ARGUETA ([id number]) [facility] ([facility]) [address] [place] [address]1028 Color (U) Yellow Normal Straw, Yellow [facility] Comment on above: Performed By: #### 2 4356-8 #### PARKER ARGUETA ([id number]) [facility] ([facility]) [address] [place] [address]458 Glucose Auto test strip (U) [Mass/Vol] Negative Normal NEGATIVE [facility] Comment on above: Performed By: #### 2 435-8 #### PARKER ARGUETA ([id number]) [facility] ([facility]) [address] [place] [address] 24588 Ketones (U) [Mass/Vol] Negative Normal NEGATIVE [facility] Comment on above: Performed By: #### 2 435-8 #### PARKER ARGUETA ([id number]) [facility] ([facility]) [address] [place] [address] Leukocyte esterase Auto test strip Ql (U) Negative Normal NEGATIVE [facility] Comment on above: Performed By: #### 2 4355-8 #### PARKER ARGUETA ([id number]) [facility] ([facility]) [address] [place] [address] 13071 Nitrite Auto test strip Ql (U) Negative Normal NEGATIVE [facility] Comment on above: Performed By: #### 2 4355-8 #### PARKER ARGUETA ([id number]) [facility] ([facility]) [address] [place] [address] 87248 pH (U) 6.0 [pH] Normal 5.0, 5.5, 6.0, 6.5, 7.0, 7.5, 8.0 [facility] Comment on above: Performed By: #### 2 4355-8 #### PARKER ARGUETA ([id number]) [facility] ([facility]) [address] [place] [address]151 Protein (U) [Mass/Vol] Negative Normal NEGATIVE [facility] Comment on above: Performed By: #### 2 4355-8 #### PARKER ARGUETA ([id number]) [facility] ([facility]) [address] [place] [address] RBC (U) [#/Vol] Negative Normal NEGATIVE [facility] Comment on above: Performed By: #### 2 4355-8 #### PARKER ARGUETA ([id number]) [facility] ([facility]) [address] [place] [address] Specific gravity (U) [Rel density] 1.015 Normal 1.005-1.035 [facility] Comment on above: Performed By: #### 2 4356-8 #### PARKER ARGUETA ([id number]) [facility] ([facility]) [address] [place] [id number] Urobilinogen (U) [Mass/Vol] mg/dL Normal <2.0 [facility] Comment on above: Performed By: #### 2 4356-8 #### PARKER ARGUETA ([id number]) [facility] ([facility]) [address] [place] [address] XR Wrist - right 3 Viewson 0 09-03-2023 As above MACRO: None Signed by: Maryam Levy 09/03/2023 3:47 PM Dictation workstation: [id number] DEIDRE GARCIA Interpreted By: Maryam Levy, STUDY: XR WRIST RIGHT 3+ VIEWS; ; 09/03/2023 3:29 pm INDICATION: Signs/Symptoms:pain. COMPARISON: None. ACCESSION NUMBER(S): [id number] ORDERING CLINICIAN: MARYAM LUGO FINDINGS: AP lateral and oblique of the right wrist demonstrate severe radiocarpal and ulnocarpal arthritis. There is dorsal translocation of the ulna on the radius. Findings most consistent with rheumatoid arthritis. [facility] Abiel Abdullahi MD - 09/03/2023 Interpreted By: Maryam Levy, STUDY: XR WRIST RIGHT 3+ VIEWS; ; 09/03/2023 3:29 pm INDICATION: Signs/Symptoms:pain. COMPARISON: None. ACCESSION NUMBER(S): [id number] ORDERING CLINICIAN: MARYAM LUGO FINDINGS: AP lateral and oblique of the right wrist demonstrate severe radiocarpal and ulnocarpal arthritis. There is dorsal translocation of the ulna on the radius. Findings most consistent with rheumatoid arthritis. IMPRESSION: As above MACRO: None Signed by: Maryam Levy 09/03/2023 3:47 PM Dictation workstation: [id number] [facility] Work Phone: [facility] Work Phone: Radiology Study observation (narrative) [facility] Work Phone: XR SHOULDER RIGHT 2+ VIEWSon 08-31-2023 XR SHOULDER RIGHT 2+ VIEWS Interpreted By: Lacy Montoya, STUDY: Right shoulder 4 views. INDICATION: Signs/Symptoms:post op. COMPARISON: 08/27/2023. ACCESSION NUMBER(S): [id number] ORDERING CLINICIAN: INDIRA LEVY FINDINGS: Patient is status post right reverse total shoulder arthroplasty. Hardware is intact without perihardware fractures or lucencies. There is unchanged inferiorly positioned humeral head component with respect to the glenoid component when compared with the immediate postoperative radiographs No malalignment. IMPRESSION: 1. As above. Signed by: Lacy Montoya 09/04/2023 7:15 AM Dictation workstation: [id number] [facility] Comment on above: Order Comment: AP, G rashey, Scap y, axillary XR Shoulder - right 2 Viewso n 08-27-2023 Status post reverse right shoulder arthroplasty for fracture MACRO: None Signed by: Indira Levy III 08/27/2023 4:45 PM Dictation workstation: [id number] [facility] Interpreted By: Indira Garvey III, STUDY: XR SHOULDER RIGHT 2+ VIEWS; ; 08/27/2023 2:46 pm INDICATION: Signs/Symptoms:pain. COMPARISON: None. ACCESSION NUMBER(S): [id number] ORDERING CLINICIAN: INDIRA LEVY FINDINGS: Three views right shoulder: Status post right reverse shoulder arthroplasty for fracture. In comparison to immediate postoperative film appears to be increased inferior inclination. No Janice implant lucency. Appropriate position of greater tuberosity status post repair. [facility] Indira Levy MD - 08/27/2023 Interpreted By: Indira Levy III, STUDY: XR SHOULDER RIGHT 2+ VIEWS; ; 08/27/2023 2:46 pm INDICATION: Signs/Symptoms:pain. COMPARISON: None. ACCESSION NUMBER(S): [id number] ORDERING CLINICIAN: INDIRA LEVY FINDINGS: Three views right shoulder: Status post right reverse shoulder arthroplasty for fracture. In comparison to immediate postoperative film appears to be increased inferior inclination. No Janice implant lucency. Appropriate position of greater tuberosity status post repair. IMPRESSION: Status post reverse right shoulder arthroplasty for fracture MACRO: None Signed by: Indira Levy III 08/27/2023 4:45 PM Dictation workstation: [id number] [facility] Work Phone: [facility] Work Phone: Radiology Study observation (narrative) [facility] Work Phone: Basic metabolic 2000 panelon 08-11-2023 Anion gap [Moles/Vol] 11 mmol/L 10 - 20 mmol/L [facility] Calcium [Mass/Vol] 9.5 mg/dL 8.6 - 10. 3 mg/dL [facility] Chloride [Moles/Vol] 99 mmol/L 98 - 10 7 mmol/L [facility] CO2 [Moles/Vol] 27 mmol/L 21 - 32 mmol/L [facility] Creatinine [Mass/Vol] 0.93 mg/dL 0.50 - 1.05 mg/dL [facility] GFR/1.73 sq M.predicted among non-blacks MDRD (S/P/Bld) [Vol rate/Area] 62 mL/min/{1.73_m2} - PINF [facility] Comment on above: Calculations of parul mated GFR are performed using the 2020 CKD-EPI Study Refit equation without the race variable for the IDMS-Traceable creatinine methods. https://jasn.asnjournals.org/content/early/ASN.698889 8064 Glucose [Mass/Vol] 138 mg/dL High 74 - 99 mg/dL [facility] Interpretation and review of laboratory results Abnormal [facility] Potassium [Moles/Vol] 4.2 mmol/L 3.5 - 5.3 mmol/L [facility] Sodium [Moles/Vol] 133 mmol/L Low 136 - 145 mmol/L [facility] Urea nitrogen [Mass/Vol] 16 mg/dL 6 - 23 mg/dL [facility] CBC panel Auto (Bld)on 08-10 Erythrocyte distribution width (RBC) [Ratio] 12.6 % 11.5 - 14.5 % [facility] Hematocrit (Bld) [Volume fraction] 32.6 % Low 36.0 - 46.0 % [facility] Hemoglobin (Bld) [Mass/Vol] 10.8 g/dL Low 12.0 - 16.0 g/dL [facility] Interpretation and review of laboratory results Abnormal [facility] MCH (RBC) [Entitic mass] 31.9 pg 26.0 - 34.0 pg [facility] MCHC (RBC) [Mass/Vol] 33.1 g/dL 32.0 - 36.0 g/dL [facility] MCV (RBC) [Entitic vol] 96 fL 80 - 100 fL [facility] Nucleated RBC/100 WBC (Bld) [Ratio] 0.0 % [facility] Platelets (Bld) [#/Vol] 244 10*3/uL [facility] RBC (Bld) [#/Vol] 3.39 10*6/uL Low [facility] WBC (Bld) [#/Vol] 10.0 10*3/uL [facility] [place] - right 2 Viewso n 08-10-2023 Postoperative change s of reverse right shoulder arthroplasty. MACRO: None Signed by: Farnaz Vargas 08/10/2023 4:36 PM Dictation workstation: [id number] [facility] Interpreted By: Farnaz Vargas, STUDY: XR SHOULDER RIGHT 2+ VIEWS; ; 08/10/2023 3:23 pm INDICATION: Signs/Symptoms:post op in pacu grashey and y views. COMPARISON: 07/02/2023 ACCESSION NUMBER(S): [id number] ORDERING CLINICIAN: INDIRA LEVY FINDINGS: Reverse right shoulder arthroplasty. Residual comminuted bone fragments along the lateral aspect of the humeral component of the prosthesis. Gas and swelling in the joint and soft tissues compatible with postoperative change. [facility] Farnaz Vargas MD - 08/10/2023 Interpreted By: Farnaz Vargas, STUDY: XR SHOULDER RIGHT 2+ VIEWS; ; 08/10/2023 3:23 pm INDICATION: Signs/Symptoms:post op in pacu grashey and y views. COMPARISON: 07/02/2023 ACCESSION NUMBER(S): [id number] ORDERING CLINICIAN: INDIRA LEVY FINDINGS: Reverse right shoulder arthroplasty. Residual comminuted bone fragments along the lateral aspect of the humeral component of the prosthesis. Gas and swelling in the joint and soft tissues compatible with postoperative change. IMPRESSION: Postoperative changes of reverse right shoulder arthroplasty. MACRO: None Signed by: Farnaz Vargas 08/10/2023 4:36 PM Dictation workstation: [id number] [facility] Work Phone: Radiology Study observation (narrative) [facility] Work Phone: XR Shoulder - right 2 ViewsO rdered By: Farnaz Vargas on 08-10-2023 [facility] Work Phone: CNPNon 08-09-2023 [facility] FELISHA JOAQUIN ([id number]) 1945 F Date Time Provider Department 08/09/23 [facility] During your visit today, we recorded the following information about you: Humberto Varela, HARI 08/09/2023 9:05 AM Signed [facility]- reports the clearance form they received back, had a date, but no signature. Reports she faxed it back to provider on Wednesday to complete, and return fax to her at fax # [phone]. Reports she needs this today, as patient's surgery is scheduled for tomorrow (Right Total Shoulder Replacement). If does not receive the completed clearance form, will have to cancel today. Needs provider to look at the bloodwork, she faxed over, state patient is cleared, sign and date the form, and fax back to her. Please phone Sigrid to let her know document was received, signed, and faxed back to her: phone # [phone] Chyna Grimm APRN.[facility] 08/09/2023 12:59 PM Signed Completed and placed in the outbox in our office. Chyna Grimm APRN.Nicci Mchugh MA 08/09/2023 1:29 PM Signed Faxed Nicci Merino MA Allergies As of Date: 08/09/2023 (No Known Allergies) Date Reviewed: 07/13/2023 Reviewed by: Chyna Grimm APRN.[facility] - Fully Assessed Reason for Visit: Clearance form incomplete [Other] Prescriptions as of 08/09/2023 - pantoprazole DR (PROTONIX) 40 mg tablet Take 1 tablet by mouth once daily. - prednisoLONE acetate (PRED FORTE, ECONOPRED PLUS) 1 % ophthalmic suspension Use 1 Drop in the right eye four times daily. - ketorolac (ACULAR) 0.5 % ophthalmic solution Use 1 Drop in the right eye four times daily. - docusate sodium (STOOL SOFTENER) 100 mg capsule Take 1 capsule by mouth twice daily. - Fexofenadine-Pseudoephe drine (ELSIE-D 24 HOUR) 180-240 mg per 24 hr tablet Take 1 tablet by mouth once daily as needed (sinus/cold symptoms). - KLOR-CON 10 10 mEq tablet - Naproxen SR (EC-NAPROSYN) 500 mg EC tablet Take 1 tablet by mouth twice daily as needed. - enalapril (VASOTEC) 2.5 mg tablet Take 2.5 mg by mouth once daily. - atorvastatin (LIPITOR) 20 mg tablet Take 1 tablet by mouth once daily. For cholesterol. - carvedilol (COREG) 3.125 mg tablet Take 1 tablet by mouth twice daily. - aspirin, enteric coated 81 mg EC tablet Take 81 mg by mouth once daily. - ascorbic acid, vitamin C, (VITAMIN C) 500 mg tablet Take 500 mg by mouth once daily. 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] 02/07/2016 Visual field loss [H53.40] 03/20/2016 Dry eye syndrome [H04.129] 04/07/2016 Combined forms of age-related cataract of both *04/07/2016 Vitreous floaters of both eyes [H43.393] 04/07/2016 Punctate keratitis, bilateral [H16.143] 01/27/2017 Obesity, Class III, BMI 40-49.9 (morbid obesity*09/06/2017 Epiretinal membrane (ERM) of both eyes [H35.373]10/13/2019 Essential hypertension [I10] 10/13/2019 Hemangioma of eyelid [D18.01] 10/13/2019 Status post cataract extraction and insertion o*01/19/2020 Status post cataract extraction and insertion o*01/19/2020 Dyslipidemia [E78.5] 02/17/2022 Fatigue [R53.83] 02/17/2022 Vitamin D deficiency [E55.9] 02/17/2022 Medicare annual wellness visit, subsequent [Z00*02/17/2022 Encounter Status:Closed by HOLIDAY, NICCI on 08/09/23 Normal [facility] CT Shoulder - right WO contr julian 07-29-2023 Mildly comminuted an d displaced fracture of the right humeral neck with volume loss and surrounding sclerosis. There is persistent lucency at the fracture site. These findings are detailed above. The fracture was initially demonstrated on a plain film examination of 06/07/2023. Mild inferior subluxation of the humeral head though no dislocation. Mild acromioclavicular arthrosis with some downsloping of the lateral acromion. Joint effusion. MACRO: None Signed by: Arden Christopher 07/29/2023 3:43 PM Dictation workstation: [id number] MMODAL Interpreted By: Arden Christopher, STUDY: CT SHOULDER RIGHT WO IV CONTRAST; ; 07/29/2023 1:24 pm INDICATION: Signs/Symptoms:surgical planning. COMPARISON: Previous plain film examinations, the latest which dates 07/02/2023. ACCESSION NUMBER(S): [id number] ORDERING CLINICIAN: INDIRA LEVY TECHNIQUE: Contiguous axial CT sections are performed through the right shoulder and supplemented with oblique coronal oblique sagittal reformatted images. FINDINGS: There is a displaced and mildly comminuted fracture of the right humeral head and neck. There is a transverse fracture line involving the humeral metaphysis just below the physeal scar. There is impaction at the fracture site and some posterior angulation. There is medial displacement of the proximal fragment measuring 1.2 cm at the medial cortex and some anterior displacement of the distal fragments 6 mm at the posterior cortex. There is some volume loss at the fracture site with surrounding sclerosis and persistent lucency. There is some callus forming laterally. The humeral head fragment appears to articulate with the glenoid though there is some inferior displacement and some widening of the superior/posterior joint space. The remaining osseous structures are intact. There are mild changes of acromioclavicular arthrosis. There is some downsloping of the lateral acromion. There is no widening of the joint space. There is no sign of additional fracture, bone destruction, or aggressive periosteal reaction. No lytic or blastic lesions identified. There is a small to moderate-sized joint effusion. The rotator cuff structures and labroligamentous complex are poorly assessed with unenhanced CT. There is some atrophy of the supraspinatus and infraspinatus muscle bellies. MMODAL Lan Christopher MD - 07/29/2023 Interpreted By: Arden Christopher, STUDY: CT SHOULDER RIGHT WO IV CONTRAST; ; 07/29/2023 1:24 pm INDICATION: Signs/Symptoms:surgical planning. COMPARISON: Previous plain film examinations, the latest which dates 07/02/2023. ACCESSION NUMBER(S): [id number] ORDERING CLINICIAN: INDIRA LEVY TECHNIQUE: Contiguous axial CT sections are performed through the right shoulder and supplemented with oblique coronal oblique sagittal reformatted images. FINDINGS: There is a displaced and mildly comminuted fracture of the right humeral head and neck. There is a transverse fracture line involving the humeral metaphysis just below the physeal scar. There is impaction at the fracture site and some posterior angulation. There is medial displacement of the proximal fragment measuring 1.2 cm at the medial cortex and some anterior displacement of the distal fragments 6 mm at the posterior cortex. There is some volume loss at the fracture site with surrounding sclerosis and persistent lucency. There is some callus forming laterally. The humeral head fragment appears to articulate with the glenoid though there is some inferior displacement and some widening of the superior/posterior joint space. The remaining osseous structures are intact. There are mild changes of acromioclavicular arthrosis. There is some downsloping of the lateral acromion. There is no widening of the joint space. There is no sign of additional fracture, bone destruction, or aggressive periosteal reaction. No lytic or blastic lesions identified. There is a small to moderate-sized joint effusion. The rotator cuff structures and labroligamentous complex are poorly assessed with unenhanced CT. There is some atrophy of the supraspinatus and infraspinatus muscle bellies. IMPRESSION: Mildly comminuted and displaced fracture of the right humeral neck with volume loss and surrounding sclerosis. There is persistent lucency at the fracture site. These findings are detailed above. The fracture was initially demonstrated on a plain film examination of 06/07/2023. Mild inferior subluxation of the humeral head though no dislocation. Mild acromioclavicular arthrosis with some downsloping of the lateral acromion. Joint effusion. MACRO: None Signed by: Arden Christopher 07/29/2023 3:43 PM Dictation workstation: [id number] [facility] Work Phone: Radiology Study observation (narrative) [facility] Work Phone: CT Shoulder - right WO contr astOrdered By: Kirti Christopher on 07-29-2023 [facility] Work Phone: Lee 07-16-2023 [facility] Telephone (FAMWS) FELISHA JOAQUIN ([id number]) 1945 F Date Time Provider Department 07/16/23 [facility] During your visit today, we recorded the following information about you: Harper Stephenson LPN 07/16/2023 11:32 AM Signed Patient has been identified by name and date of : Yes, Provider Dr. Mendiola Date 07/16/23 Time 11:29 Type of form: pre op form Form received via: Fax When form is completed, fax form to fax number provided. Form has been forwarded to: Provider's desk. Provider name: HUA Sargent CNP, Rebekah, APRN.[facility] 07/16/2023 12:23 PM Signed Noted, thank you. Chyna Grimm APRN.[employer] Allergies As of Date: 07/16/2023 (No Known Allergies) Date Reviewed: 07/13/2023 Reviewed by: Chyna Grimm APRN.[employer]GET[employer]PAR[employer] - Fully Assessed Reason for Visit: medical clearance form [Other] Prescriptions as of 07/16/2023 - pantoprazole DR (PROTONIX) 40 mg tablet Take 1 tablet by mouth once daily. - prednisoLONE acetate (PRED FORTE, ECONOPRED PLUS) 1 % ophthalmic suspension Use 1 Drop in the right eye four times daily. - ketorolac (ACULAR) 0.5 % ophthalmic solution Use 1 Drop in the right eye four times daily. - docusate sodium (STOOL SOFTENER) 100 mg capsule Take 1 capsule by mouth twice daily. - Fexofenadine-Pseudoephe drine (ELSIE-D 24 HOUR) 180-240 mg per 24 hr tablet Take 1 tablet by mouth once daily as needed (sinus/cold symptoms). - KLOR-CON 10 10 mEq tablet - Naproxen SR (EC-NAPROSYN) 500 mg EC tablet Take 1 tablet by mouth twice daily as needed. - enalapril (VASOTEC) 2.5 mg tablet Take 2.5 mg by mouth once daily. - atorvastatin (LIPITOR) 20 mg tablet Take 1 tablet by mouth once daily. For cholesterol. - carvedilol (COREG) 3.125 mg tablet Take 1 tablet by mouth twice daily. - aspirin, enteric coated 81 mg EC tablet Take 81 mg by mouth once daily. - ascorbic acid, vitamin C, (VITAMIN C) 500 mg tablet Take 500 mg by mouth once daily. 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] 02/07/2016 Visual field loss [H53.40] 03/20/2016 Dry eye syndrome [H04.129] 04/07/2016 Combined forms of age-related cataract of both *04/07/2016 Vitreous floaters of both eyes [H43.393] 04/07/2016 Punctate keratitis, bilateral [H16.143] 01/27/2017 Obesity, Class III, BMI 40-49.9 (morbid obesity*09/06/2017 Epiretinal membrane (ERM) of both eyes [H35.373]10/13/2019 Essential hypertension [I10] 10/13/2019 Hemangioma of eyelid [D18.01] 10/13/2019 Status post cataract extraction and insertion o*01/19/2020 Status post cataract extraction and insertion o*01/19/2020 Dyslipidemia [E78.5] 02/17/2022 Fatigue [R53.83] 02/17/2022 Vitamin D deficiency [E55.9] 02/17/2022 Medicare annual wellness visit, subsequent [Z00*02/17/2022 Encounter Status:Closed by CHYNA GRIMM on 07/16/23 Normal [facility] Comprehensive metabolic 2000 panelon 07-14-2023 Albumin [Mass/Vol] 4.3 g/dL 3.9 - 4.9 g/dL [facility] ALP [Catalytic activity/Vol] 121 U/L 34 - 123 U/L [facility] ALT [Catalytic activity/Vol] 13 U/L 7 - 38 U/L [facility] Anion gap [Moles/Vol] 12 mmol/L 9 - 18 mmol/L [facility] AST [Catalytic activity/Vol] 19 U/L 13 - 35 U/L [facility] Bilirubin [Mass/Vol] 0.4 mg/dL 0.2 - 1 .3 mg/dL [facility] Calcium [Mass/Vol] 10.2 mg/dL 8.5 - 10. 2 mg/dL [facility] Chloride [Moles/Vol] 100 mmol/L 97 - 10 5 mmol/L [facility] CO2 [Moles/Vol] 24 mmol/L 22 - 30 mmol/L [facility] Creatinine [Mass/Vol] 0.76 mg/dL 0.58 - 0.96 mg/dL [facility] Estimated Glomerular Filtration Rate 79 mL/min/1.73m >=60 mL/min/1.73m [facility] Glucose [Mass/Vol] 92 mg/dL 74 - 99 mg/dL [facility] Potassium [Moles/Vol] 4.5 mmol/L 3.7 - 5.1 mmol/L [facility] Protein [Mass/Vol] 7.1 g/dL 6.3 - 8.0 g/dL [facility] Sodium [Moles/Vol] 136 mmol/L 136 - 144 mmol/L [facility] Urea nitrogen [Mass/Vol] 14 mg/dL 7 - 21 mg/dL [facility] HbA1c (Bld)on 07-14-2023 Average glucose Estimated from glycated hemoglobin (Bld) [Mass/Vol] 91 mg/dL [facility] HbA1c (Bld) [Mass fraction] 4.8 % 4.3 - 5.6 % [facility] CBC W Auto Differential pane l (Bld)on 07-13-2023 Basophils (Bld) [#/Vol] 0.03 10*3/uL <0.11 k/uL [facility] Basophils/100 WBC (Bld) 0.4 % [facility] Differential cell count method Nom (Bld) Auto [facility] Eosinophils (Bld) [#/Vol] 0.12 10*3/uL <0.46 k/uL [facility] Eosinophils/100 WBC (Bld) 1.6 % [facility] Erythrocyte distribution width (RBC) [Ratio] 13.5 % 11.5 - 15.0 % [facility] Hematocrit (Bld) [Volume fraction] 37.0 % 36.0 - 46.0 % [facility] Hemoglobin (Bld) [Mass/Vol] 11.7 g/dL 11.5 - 15.5 g/dL [facility] Immature granulocytes (Bld) [#/Vol] <0.10 k/uL [facility] Immature granulocytes/100 WBC (Bld) 0.3 % [facility] Lymphocytes (Bld) [#/Vol] 1.94 10*3/uL 1.00 - 4.00 k/uL [facility] Lymphocytes/100 WBC (Bld) 26.6 % [facility] MCH (RBC) [Entitic mass] 31.7 pg 26.0 - 34.0 pg [facility] MCHC (RBC) [Mass/Vol] 31.6 g/dL 30.5 - 36.0 g/dL [facility] MCV (RBC) [Entitic vol] 100.3 fL High 80.0 - 100.0 fL [facility] Monocytes (Bld) [#/Vol] 0.56 10*3/uL <0.87 k/uL [facility] Monocytes/100 WBC (Bld) 7.7 % [facility] Neutrophils (Bld) [#/Vol] 4.62 10*3/uL 1.45 - 7.50 k/uL [facility] Neutrophils/100 WBC (Bld) 63.4 % [facility] Nucleated RBC (Bld) [#/Vol] <0.01 k/uL [facility] Nucleated RBC/100 WBC (Bld) [Ratio] 0.0 /100 WBC [facility] Platelet mean volume (Bld) [Entitic vol] 10.0 fL 9.0 - 12.7 fL [facility] Platelets (Bld) [#/Vol] 248 10*3/uL 150 - 400 k/uL [facility] RBC (Bld) [#/Vol] 3.69 10*6/uL Low 3.90 - 5.2 0 m/uL [facility] WBC (Bld) [#/Vol] 7.29 10*3/uL 3.70 - 11. 00 k/uL [facility] Basophils (Bld) [#/Vol] 0.03 10*3/uL Normal <0.11 [facility] Comment on above: Order Comment: Speci men Type: BLOOD SPECIMENOrdering Facility: [facility] Address: [address] [place] [address] Performed By: #### 5 7021-8 ####[facility] LABCLIA [id number] [place] [address] [place] Basophils/100 WBC (Bld) 0.4 % Normal [facility] Comment on above: Order Comment: Speci men Type: BLOOD SPECIMENOrdering Facility: [facility] Address: [address] [place] [address] Performed By: #### 5 7021-8 ####[facility] LABCLIA [id number] [place] [address] [place] Differential cell count method Nom (Bld) Auto Normal [facility] Comment on above: Order Comment: Speci men Type: BLOOD SPECIMENOrdering Facility: [facility] Address: [address] [place] [address] Performed By: #### 5 7021-8 ####[facility] LABCLIA [id number] [place] [address] [place] Eosinophils (Bld) [#/Vol] 0.12 10*3/uL Normal <0.46 [facility] Comment on above: Order Comment: Speci men Type: BLOOD SPECIMENOrdering Facility: [facility] Address: [address] [place] [address] Performed By: #### 5 7021-8 ####[facility] LABCLIA [id number] [place] [address] [place] Eosinophils/100 WBC (Bld) 1.6 % Normal [facility] Comment on above: Order Comment: Speci men Type: BLOOD SPECIMENOrdering Facility: [facility] Address: [address] [place] [address] Performed By: #### 5 7021-8 ####[facility] LABCLIA [id number] [place] [address] [place] Erythrocyte distribution width (RBC) [Ratio] 13.5 % Normal 11.5-15.0 [facility] Comment on above: Order Comment: Speci men Type: BLOOD SPECIMENOrdering Facility: [facility] Address: [address] [place] [address] Performed By: #### 5 7021-8 ####[facility] LABCLIA [id number] [place] [address] [place] Hematocrit (Bld) [Volume fraction] 37.0 % Normal 36.0-46.0 [facility] Comment on above: Order Comment: Speci men Type: BLOOD SPECIMENOrdering Facility: [facility] Address: [address] [place] [address] Performed By: #### 5 7021-8 ####[facility] LABCLIA [id number] [place] [address] [place] Hemoglobin (Bld) [Mass/Vol] 11.7 g/dL Normal 11.5-15.5 [facility] Comment on above: Order Comment: Speci men Type: BLOOD SPECIMENOrdering Facility: [facility] Address: [address] [place] [address] Performed By: #### 5 7021-8 ####[facility] LABCLIA [id number] [place] [address] [place] Immature granulocytes (Bld) [#/Vol] 10*3/uL Normal <0.10 [facility] Comment on above: Order Comment: Speci men Type: BLOOD SPECIMENOrdering Facility: [facility] Address: [address] [place] [address] Performed By: #### 5 7021-8 ####[facility] LABCLIA [id number] [place] [address] [place] Immature granulocytes/100 WBC (Bld) 0.3 % Normal [facility] Comment on above: Order Comment: Speci men Type: BLOOD SPECIMENOrdering Facility: [facility] Address: [address] [place] [address] Performed By: #### 5 7021-8 ####[facility] LABCLIA [id number] [place] [address] [place] Lymphocytes (Bld) [#/Vol] 1.94 10*3/uL Normal 1.00-4.00 [facility] Comment on above: Order Comment: Speci men Type: BLOOD SPECIMENOrdering Facility: [facility] Address: [address] [place] [address] Performed By: #### 5 7021-8 ####[facility] LABCLIA [id number] [place] [address] [place] Lymphocytes/100 WBC (Bld) 26.6 % Normal [facility] Comment on above: Order Comment: Speci men Type: BLOOD SPECIMENOrdering Facility: [facility] Address: [address] [place] [address] Performed By: #### 5 7021-8 ####[facility] LABCLIA [id number] [place] [address] [place] MCH (RBC) [Entitic mass] 31.7 pg Normal 26.0-34.0 [facility] Comment on above: Order Comment: Speci men Type: BLOOD SPECIMENOrdering Facility: [facility] Address: [address] [place] [address] Performed By: #### 5 7021-8 ####[facility] LABCLIA [id number] [place] [address] [place] MCHC (RBC) [Mass/Vol] 31.6 g/dL Normal 30.5-36.0 [facility] Comment on above: Order Comment: Speci men Type: BLOOD SPECIMENOrdering Facility: [facility] Address: [address] [place] [address] Performed By: #### 5 7021-8 ####[facility] LABIA [id number] [place] [address] [place] MCV (RBC) [Entitic vol] 100.3 fL High 80.0-100.0 [facility] Comment on above: Order Comment: Speci men Type: BLOOD SPECIMENOrdering Facility: [facility] Address: [address] [place] [address] Performed By: #### 5 7021-8 ####[facility] LABIA [id number] [place] [address] [place] Monocytes (Bld) [#/Vol] 0.56 10*3/uL Normal <0.87 [facility] Comment on above: Order Comment: Speci men Type: BLOOD SPECIMENOrdering Facility: [facility] Address: [address] [place] [address] Performed By: #### 5 7021-8 ####[facility] LABIA [id number] [place] [address] [place] Monocytes/100 WBC (Bld) 7.7 % Normal [facility] Comment on above: Order Comment: Speci men Type: BLOOD SPECIMENOrdering Facility: [facility] Address: [address] [place] [address] Performed By: #### 5 7021-8 ####[facility] LABIA [id number] [place] [address] [place] Neutrophils (Bld) [#/Vol] 4.62 10*3/uL Normal 1.45-7.50 [facility] Comment on above: Order Comment: Speci men Type: BLOOD SPECIMENOrdering Facility: [facility] Address: [address] [place] [address] Performed By: #### 5 7021-8 ####[facility] LABCLIA [id number] [place] [address] [place] Neutrophils/100 WBC (Bld) 63.4 % Normal [facility] Comment on above: Order Comment: Speci men Type: BLOOD SPECIMENOrdering Facility: [facility] Address: [address] [place] [address] Performed By: #### 5 7021-8 ####[facility] LABIA [id number] [place] [address] [place] Nucleated RBC (Bld) [#/Vol] 10*3/uL Normal <0.01 [facility] Comment on above: Order Comment: Speci men Type: BLOOD SPECIMENOrdering Facility: [facility] Address: [address] [place] [address] Performed By: #### 5 7021-8 ####[facility] LABIA [id number] [place] [address] [place] Nucleated RBC/100 WBC (Bld) [Ratio] 0.0 /100 WBC Normal [facility] Comment on above: Order Comment: Speci men Type: BLOOD SPECIMENOrdering Facility: [facility] Address: [address] [place] [address] Performed By: #### 5 7021-8 ####[facility] LABIA [id number] [place] [address] [place] Platelet mean volume (Bld) [Entitic vol] 10.0 fL Normal 9.0-12.7 [facility] Comment on above: Order Comment: Speci men Type: BLOOD SPECIMENOrdering Facility: [facility] Address: [address] [place] [address] Performed By: #### 5 7021-8 ####[facility] LABIA [id number] [place] [address] [place] Platelets (Bld) [#/Vol] 248 10*3/uL Normal 150-400 [facility] Comment on above: Order Comment: Speci men Type: BLOOD SPECIMENOrdering Facility: [facility] Address: [address] [place] [address] Performed By: #### 5 7021-8 ####[facility] [id number] [place] [address] [place] RBC (Bld) [#/Vol] 3.69 10*6/uL Low 3.90-5.20 [facility] Comment on above: Order Comment: Speci men Type: BLOOD SPECIMENOrdering Facility: [facility] Address: [address] [place] [address] Performed By: #### 5 7021-8 ####[facility] [id number] [place] [address] [place] WBC (Bld) [#/Vol] 7.29 10*3/uL Normal 3.70-11.00 [facility] Comment on above: Order Comment: Speci men Type: BLOOD SPECIMENOrdering Facility: [facility] Address: [address] [place] [address] Performed By: #### 5 7021-8 ####[facility] [id number] [place] [id number] [place] CNOVon 07-13-2023 CNOV Office Visit (FAMPWS ) FELISHA JOAQUIN ([id number]) 1945 F Date Time Provider Department 07/13/23 1:00 PM CHYNA GRIMM During your visit today, we recorded the following information about you: Pulse Blood pressure Weight 71/minute 136/78 107.7 kg Chyna Grimm APRN.CNP 07/14/2023 7:24 AM Signed Chief Complaint Patient presents with: Pre-Op Exam: Right Shoulder repair HPI Felisha Joaquin is a 78 year old female who presents here today for Above Complaints. Currently: On 06/07 had a fall and had a crack up near her right shoulder. Initially was told that a sling would be just as good as a surgery. However, she then stumbled and caught herself with this arm and crack is much worse, requiring surgery. Requesting preop exam for repair of her right shoulder. Surgery is scheduled at [facility] on 08/09. Has never had difficulty with anesthesia or difficult intubation. Denies CP, dizziness, SOB. Overall feels good except her arm. Is taking an ibuprofen rx for pain, this is helpful. Very difficult to dress and undress, bathe, all ADLs. Daughter is able to help with things she is unable to do. Has had 2 colonoscopies and wakes up with them. Had knee surgery and was able to feel the sawing. States she may need a little extra for sedation. Past medical history, appointments, medications, allergies reviewed. Previous Medical History PAST MEDICAL HISTORY Diagnosis Date Acid reflux Arrhythmia Arthritis Coronary artery disease Does use hearing aid Heart attack (HCC) Hypertension Osteopenia 07/2013 left hip on DEXA Rash of face S/P YAG capsulotomy, left 08/12/2022 Seasonal allergies Snoring Previous Surgical History PAST SURGICAL HISTORY Procedure Laterality Date COLONOSCOPY 2006 small polyp COLONOSCOPY FLX DX W/COLLJ SPEC WHEN PFRMD 08/02/14 Colonoscopy COLONOSCOPY FLX DX W/COLLJ SPEC WHEN PFRMD 11/27/2019 Colonoscopy ESOPHAGOGASTRODUODENOSC OPY TRANSORAL DIAGNOSTIC 11/27/2019 EGD PAST SURGICAL HISTORY OF 01/2013 left TKA PAST SURGICAL HISTORY OF 07/2012 right TKA PAST SURGICAL HISTORY OF 2006 ORIF wrist, right PAST SURGICAL HISTORY OF 2002 meniscectomy right knee XCAPSL CTRC RMVL INSJ IO LENS PROSTH W/O ECP Right 01/04/2020 Cataract Extraction with PC IOL 21.5 D XCAPSL CTRC RMVL INSJ IO LENS PROSTH W/O ECP Left Cataract Extraction with PC IOL 21.0 D Family History FAMILY HISTORY Problem Relation Age of Onset Arthritis Mother Heart Mother Hypertension Mother Arthritis Father Heart Father Hypertension Father Cancer Sister Breast Cancer Sister 56 No Ocular Disease No Family History Diabetes No Family History Patient Allergies ALLERGIES No Known Allergies Current Medications Current Outpatient Medications on File Prior to Visit Medication Sig pantoprazole DR (PROTONIX) 40 mg tablet TAKE 1 TABLET EVERY DAY prednisoLONE acetate (PRED FORTE, ECONOPRED PLUS) 1 % ophthalmic suspension Use 1 Drop in the right eye four times daily. ketorolac (ACULAR) 0.5 % ophthalmic solution Use 1 Drop in the right eye four times daily. docusate sodium (STOOL SOFTENER) 100 mg capsule Take 1 capsule by mouth twice daily. Fexofenadine-Pseudoephe drine (ELSIE-D 24 HOUR) 180-240 mg per 24 hr tablet Take 1 tablet by mouth once daily as needed (sinus/cold symptoms). KLOR-CON 10 10 mEq tablet Naproxen SR (EC-NAPROSYN) 500 mg EC tablet Take 1 tablet by mouth twice daily as needed. enalapril (VASOTEC) 2.5 mg tablet Take 2.5 mg by mouth once daily. atorvastatin (LIPITOR) 20 mg tablet Take 1 tablet by mouth once daily. For cholesterol. carvedilol (COREG) 3.125 mg tablet Take 1 tablet by mouth twice daily. aspirin, enteric coated 81 mg EC tablet Take 81 mg by mouth once daily. ascorbic acid, vitamin C, (VITAMIN C) 500 mg tablet Take 500 mg by mouth once daily. AMOXICILLIN ORAL Take 1 tablet by mouth twice daily. PROPYLENE GLYCOL/PEG 400 (BLINK TEARS LUBRICATING) Eye Drops Use 1 Drop in both eyes three times daily. VIT A/VIT C/VIT E/ZINC/COPPER (PRESERVISION AREDS ORAL) Take by mouth. (Patient not taking: No sig reported) LACTOBACILLUS ACIDOPHILUS (PROBIOTIC ORAL) Take by mouth. multivitamin tablet Take 1 tablet by mouth once daily. (Patient not taking: No sig reported) COMPOUNDED PRESCRIPTION preservision tablet daily No current facility-administered medications on file prior to visit. Social History Social History Tobacco Use Smoking status: Never Smokeless tobacco: Never Vaping Use Vaping Use: Never used Substance Use Topics Alcohol use: No Drug use: Never Review of Symptoms REVIEW OF SYSTEMS See HPI, otherwise negative EXAM: BP 136/78 (BP Site: Left Arm, BP Position: Sitting, BP Cuff Size: Regular Adult) Pulse 71 Wt 107.7 kg (237 lb 6.4 oz) SpO2 98% BMI 40.75 kg/m? General Appearance: Well (more content not included)... Normal [facility] Comprehensive metabolic 2000 panelon 07-13-2023 Albumin [Mass/Vol] 4.3 g/dL Normal 3.9-4.9 [facility] Comment on above: Order Comment: Speci men Type: BLOOD SPECIMENOrdering Facility: [facility] Address: [address] [place] [address] Performed By: #### 2 4323-8 ####[facility] LABCLIA [id number] [place] [address] [place] ALP [Catalytic activity/Vol] 121 U/L Normal 34-123 [facility] Comment on above: Order Comment: Speci men Type: BLOOD SPECIMENOrdering Facility: [facility] Address: [address] [place] [address] Performed By: #### 2 4323-8 ####[facility] LABCLIA [id number] [place] [address] [place] ALT [Catalytic activity/Vol] 13 U/L Normal 7-38 [facility] Comment on above: Order Comment: Speci men Type: BLOOD SPECIMENOrdering Facility: [facility] Address: [address] [place] [address] Performed By: #### 2 4323-8 ####[facility] LABCLIA [id number] [place] [address] [place] Anion gap [Moles/Vol] 12 mmol/L Normal 9-18 [facility] Comment on above: Order Comment: Speci men Type: BLOOD SPECIMENOrdering Facility: [facility] Address: [address] [place] [address] Performed By: #### 2 4323-8 ####[facility] LABCLIA [id number] [place] [id number] [place] AST [Catalytic activity/Vol] 19 U/L Normal 13-35 [facility] Comment on above: Order Comment: Speci men Type: BLOOD SPECIMENOrdering Facility: [facility] Address: [address] [place] [address] Performed By: #### 2 4323-8 ####[facility] LABCLIA [id number] [place] [address] [place] Bilirubin [Mass/Vol] 0.4 mg/dL Normal 0.2-1.3 [facility] Comment on above: Order Comment: Speci men Type: BLOOD SPECIMENOrdering Facility: [facility] Address: [address] [place] [address] Performed By: #### 2 4323-8 ####[facility] LABCLIA [id number] [place] [address] [place] Calcium [Mass/Vol] 10.2 mg/dL Normal 8.5-10.2 [facility] Comment on above: Order Comment: Speci men Type: BLOOD SPECIMENOrdering Facility: [facility] Address: [address] [place] [address] Performed By: #### 2 4323-8 ####[facility] LABCLIA [id number] [place] [address] [place] Chloride [Moles/Vol] 100 mmol/L Normal 97-105 [facility] Comment on above: Order Comment: Speci men Type: BLOOD SPECIMENOrdering Facility: [facility] Address: [address] [place] [address] Performed By: #### 2 4323-8 ####[facility] LABCLIA [id number] [place] [address] [place] CO2 [Moles/Vol] 24 mmol/L Normal 22-30 [facility] Comment on above: Order Comment: Speci men Type: BLOOD SPECIMENOrdering Facility: [facility] Address: [address] [place] [address] Performed By: #### 2 4323-8 ####[facility] LABCLIA [id number] [place] [address] [place] Creatinine [Mass/Vol] 0.76 mg/dL Normal 0.58-0.96 [facility] Comment on above: Order Comment: Speci men Type: BLOOD SPECIMENOrdering Facility: [facility] Address: [address] [place] [address] Performed By: #### 2 4323-8 ####[facility] LABIA [id number] [place] [address] [place] Creatinine and Glomerular filtration rate.predicted panel (S/P/Bld) 79 mL/min/1.73m??? Normal >=60 [facility] Comment on above: Order Comment: Speci men Type: BLOOD SPECIMENOrdering Facility: [facility] Address: [address] [place] [address] Result Comment: Parul mated Glomerular Filtration Rate (eGFR) is calculated using the 2020 CKD-EPI creatinine equation. This equation utilizes serum creatinine, sex, and age as parameters. The creatinine assay has traceable calibration to isotope dilution-mass spectrometry. Refer to KDIGO guidelines for clinical interpretation. In patients with unstable renal function, e.g. those with acute kidney injury, the eGFR may not accurately reflect actual GFR. Performed By: #### 2 4323-8 ####[facility] LABIA [id number] [place] [id number] [place] Glucose [Mass/Vol] 92 mg/dL Normal 74-99 [facility] Comment on above: Order Comment: Speci men Type: BLOOD SPECIMENOrdering Facility: [facility] Address: [address] [place] [address] Result Comment: The [place] Diabetes Association (ADA) provides guidance for cutoff values for fasting glucose and random glucose. The ADA defines fasting as no caloric intake for at least 8 hours. Fasting plasma glucose results between 100 to 125 mg/dL indicate increased risk for diabetes (prediabetes). Fasting plasma glucose results greater than or equal to 126 mg/dL meet the criteria for diagnosis of diabetes. In the absence of unequivocal hyperglycemia, results should be confirmed by repeat testing. In a patient with classic symptoms of hyperglycemia or hyperglycemic crisis, random plasma glucose results greater than or equal to 200 mg/dL meet the criteria for diagnosis of diabetes. Reference: Standards of Medical Care in Diabetes 2016, [place] Diabetes Association. Diabetes Care. 2016.39(Suppl 1). Performed By: #### 2 4323-8 ####[facility] LABCLIA [id number] [place] [address] [place] Potassium [Moles/Vol] 4.5 mmol/L Normal 3.7-5.1 [facility] Comment on above: Order Comment: Speci men Type: BLOOD SPECIMENOrdering Facility: [facility] Address: [address] [place] [address] Performed By: #### 2 4323-8 ####[facility] LABIA [id number] [place] [address] [place] Protein [Mass/Vol] 7.1 g/dL Normal 6.3-8.0 [facility] Comment on above: Order Comment: Barbarai men Type: BLOOD SPECIMENOrdering Facility: [facility] Address: [address] [place] [address] Performed By: #### 2 4323-8 ####[facility] LABCLIA [id number] [place] [id number] [place] Sodium [Moles/Vol] 136 mmol/L Normal 136-144 [facility] Comment on above: Order Comment: Speci men Type: BLOOD SPECIMENOrdering Facility: [facility] Address: [address] [place] [address] Performed By: #### 2 4323-8 ####[facility] LABCLIA [id number] [place] [id number] [place] Urea nitrogen [Mass/Vol] 14 mg/dL Normal 7-21 [facility] Comment on above: Order Comment: Ever zaldivar Type: BLOOD SPECIMENOrdering Facility: [facility] Address: [address] [place] [address] Performed By: #### 2 4323-8 ####[facility] LABCLIA [id number] [address] [place] [id number] 07-13-2023 ECG01 Ventricular Rate : 6 7 BPM Atrial Rate : 67 BPM P-R Interval : 156 ms QRS Duration : 124 ms Q-T Interval : 430 ms QTC Calculation(Bazett) : 454 ms Calculated P Gibson : 58 degrees Calculated R Gibson : 13 degrees Calculated T Gibson : 18 degrees NORMAL SINUS RHYTHM COMPLETE RIGHT BUNDLE BRANCH BLOCK ABNORMAL ECG Confirmed by SAM HAIRSTON DO ([id number]) on 07/13/2023 4:58:20 PM NAME : FELISHA JOAQUIN PID : [id number] : 1945 Gender : Female Race : ORD : Procedure Date : Jul 13 2023 12:18:21 Edit Date : Jul 13 2023 16:58:21 Diagnosis: NORMAL SINUS RHYTHM COMPLETE RIGHT BUNDLE BRANCH BLOCK ABNORMAL ECG Confirmed by SAM HAIRSTON DO ([id number]) on 07/13/2023 4:58:20 PM Test Reason : Location : 185 : [facility] Overread By : SAM HAIRSTON DO Edited By : SAM HAIRSTON DO Referred By : , Acquired by : , Normal [facility] HbA1c (Bld)on 07-13-2023 Average glucose Estimated from glycated hemoglobin (Bld) [Mass/Vol] 91 mg/dL Normal [facility] Comment on above: Order Comment: Ever zaldivar Type: BLOOD SPECIMENOrdering Facility: [facility] Address: [address] [place] [address] Result Comment: eAG: (Estimated average glucose) is a calculated value from HgbA1c and is retail account representative of the average blood glucose level in the last 2-3 month period. Performed By: #### 5 5454-3 ####[facility] LABIA [id number] [address] [place] HbA1c (Bld) [Mass fraction] 4.8 % Normal 4.3-5.6 [facility] Comment on above: Order Comment: Speci men Type: BLOOD SPECIMENOrdering Facility: [facility] Address: [address] [place] [place] [address] Result Comment: [place] Diabetes Association guidelines indicate that patients with HgbA1c in the range 5.7-6.4% are at increased risk for development of diabetes, and intervention by lifestyle modification may be beneficial. HgbA1c greater or equal to 6.5% is considered diagnostic of diabetes. Performed By: #### 5 5454-3 ####[facility] LABCLIA [id number] [facility] [id number] [place] XR Shoulder - right 2 Viewso n 07-03-2023 Subacute healing proximal humeral fracture deformity without change in alignment. MACRO: None Signed by: Aldair Fatima 07/03/2023 9:13 AM Dictation workstation: [id number] MMODAL Interpreted By: Aldair Ayers, STUDY: XR SHOULDER RIGHT 2+ VIEWS; ; 07/02/2023 9:55 am INDICATION: Signs/Symptoms:PAIN. COMPARISON: 06/18/2023. ACCESSION NUMBER(S): [id number] ORDERING CLINICIAN: SAM GRACIA FINDINGS: Right shoulder, three views Redemonstration of a comminuted fracture through the proximal humerus with moderate displacement and angulation. There is increased callus formation and sclerosis. There is no dislocation. MMODAL Aldair Fatima MD - 07/03/2023 Interpreted By: Aldair Fatima, STUDY: XR SHOULDER RIGHT 2+ VIEWS; ; 07/02/2023 9:55 am INDICATION: Signs/Symptoms:PAIN. COMPARISON: 06/18/2023. ACCESSION NUMBER(S): [id number] ORDERING CLINICIAN: SAM GRACIA FINDINGS: Right shoulder, three views Redemonstration of a comminuted fracture through the proximal humerus with moderate displacement and angulation. There is increased callus formation and sclerosis. There is no dislocation. IMPRESSION: Subacute healing proximal humeral fracture deformity without change in alignment. MACRO: None Signed by: Aldair Fatima 07/03/2023 9:13 AM Dictation workstation: [id number] [facility] Work Phone: XR Shoulder - right 2 ViewsO rdered By: Aldair Fatima on 07-03-2023 [facility] Work Phone: XR SHOULDER RIGHT 2+ VIEWSon 07-02-2023 XR SHOULDER RIGHT 2+ VIEWS Interpreted By: Aldair Fatima, STUDY: XR SHOULDER RIGHT 2+ VIEWS; ; 07/02/2023 9:55 am INDICATION: Signs/Symptoms:PAIN. COMPARISON: 06/18/2023. ACCESSION NUMBER(S): [id number] ORDERING CLINICIAN: SAM GRACIA FINDINGS: Right shoulder, three views Redemonstration of a comminuted fracture through the proximal humerus with moderate displacement and angulation. There is increased callus formation and sclerosis. There is no dislocation. IMPRESSION: Subacute healing proximal humeral fracture deformity without change in alignment. MACRO: None Signed by: Aldair Fatima 07/03/2023 9:13 AM Dictation workstation: [id number] [facility] XR Shoulder - right 2 Viewso n 07-02-2023 Radiology Study observation (narrative) [facility] Work Phone: No Panel Informationon 06-19 Suggested slight rolan unt of increased displacement of the surgical neck right greater tuberosity fracture when compared to prior study. Signed by: Jose Russell 06/19/2023 9:36 AM Dictation workstation: [id number] [facility] MM[facility] Interpreted By: Jose Madrid, STUDY: XR SHOULDER RIGHT 2+ VIEWS; XR HUMERUS RIGHT INDICATION: Signs/Symptoms:S/P FRACTURE. COMPARISON: June 07, 2023 ACCESSION NUMBER(S): [id number]; [id number] ORDERING CLINICIAN: SAM GRACIA FINDINGS: Surgical neck right proximal humeral fracture again noted with greater tuberosity component. There is some medial displacement of the distal fragment which looks to have slightly increased from prior study. No glenohumeral dislocation seen. [facility] MMODAL Jose Russell MD - 06/19/2023 Interpreted By: Jose Russell, STUDY: XR SHOULDER RIGHT 2+ VIEWS; XR HUMERUS RIGHT INDICATION: Signs/Symptoms:S/P FRACTURE. COMPARISON: June 07, 2023 ACCESSION NUMBER(S): [id number]; [id number] ORDERING CLINICIAN: SAM GRACIA FINDINGS: Surgical neck right proximal humeral fracture again noted with greater tuberosity component. There is some medial displacement of the distal fragment which looks to have slightly increased from prior study. No glenohumeral dislocation seen. IMPRESSION: Suggested slight amount of increased displacement of the surgical neck right greater tuberosity fracture when compared to prior study. Signed by: Jose Russell 06/19/2023 9:36 AM Dictation workstation: [id number] [facility] Work Phone: No Panel InformationOrdered By: Jose Russell on 06-19-2023 [facility] Work Phone: XR HUMERUS RIGHTon XR HUMERUS RIGHT Interpreted By: Jose Madrid, STUDY: XR SHOULDER RIGHT 2+ VIEWS; XR HUMERUS RIGHT INDICATION: Signs/Symptoms:S/P FRACTURE. COMPARISON: June 07, 2023 ACCESSION NUMBER(S): [id number]; [id number] ORDERING CLINICIAN: SAM GRACIA FINDINGS: Surgical neck right proximal humeral fracture again noted with greater tuberosity component. There is some medial displacement of the distal fragment which looks to have slightly increased from prior study. No glenohumeral dislocation seen. IMPRESSION: Suggested slight amount of increased displacement of the surgical neck right greater tuberosity fracture when compared to prior study. Signed by: Jose Russell 06/19/2023 9:36 AM Dictation workstation: [id number] [facility] XR Humerus - right Viewson 0 06-18-2023 Radiology Study observation (narrative) [facility] Work Phone: XR SHOULDER RIGHT 2+ VIEWSon 06-18-2023 XR SHOULDER RIGHT 2+ VIEWS Interpreted By: Jose Russell, STUDY: XR SHOULDER RIGHT 2+ VIEWS; XR HUMERUS RIGHT INDICATION: Signs/Symptoms:S/P FRACTURE. COMPARISON: June 07, 2023 ACCESSION NUMBER(S): [id number]; [id number] ORDERING CLINICIAN: SAM GRACIA FINDINGS: Surgical neck right proximal humeral fracture again noted with greater tuberosity component. There is some medial displacement of the distal fragment which looks to have slightly increased from prior study. No glenohumeral dislocation seen. IMPRESSION: Suggested slight amount of increased displacement of the surgical neck right greater tuberosity fracture when compared to prior study. Signed by: Jose Russell 06/19/2023 9:36 AM Dictation workstation: [id number] [facility] Comment on above: Order Comment: Trans -scapular lateral XR Shoulder - right 2 Viewso n 06-18-2023 Radiology Study observation (narrative) [facility] Work Phone: XR Humerus - right Viewson 0 06-11-2023 Similar appearing offset fracture of the proximal humerus. MACRO: None Signed by: Jose Armando Pearce 06/11/2023 10:25 PM Dictation workstation: [id number] [facility] Interpreted By: Jose Armando Andre, STUDY: XR HUMERUS RIGHT; ; 06/10/2023 2:11 pm INDICATION: Signs/Symptoms:S/P FX. COMPARISON: 06/07/2023 ACCESSION NUMBER(S): [id number] ORDERING CLINICIAN: SAM GRACIA FINDINGS: Redemonstration offset fracture of the proximal humerus which appears to involve both the humeral neck and greater tuberosity. [facility] MM[facility]AL Jose Armando Pearce MD - 06/11/2023 Interpreted By: Jose Armando Pearce, STUDY: XR HUMERUS RIGHT; ; 06/10/2023 2:11 pm INDICATION: Signs/Symptoms:S/P FX. COMPARISON: 06/07/2023 ACCESSION NUMBER(S): [id number] ORDERING CLINICIAN: SAM GRACIA FINDINGS: Redemonstration offset fracture of the proximal humerus which appears to involve both the humeral neck and greater tuberosity. IMPRESSION: Similar appearing offset fracture of the proximal humerus. MACRO: None Signed by: Jose Armando Pearce 06/11/2023 10:25 PM Dictation workstation: [id number] [facility] Work Phone: XR Humerus - right ViewsOrde red By: Jose Armando Pearce on 06-11-2023 [facility] Work Phone: XR HUMERUS RIGHTon XR HUMERUS RIGHT Interpreted By: Jose Armando Andre, STUDY: XR HUMERUS RIGHT; ; 06/10/2023 2:11 pm INDICATION: Signs/Symptoms:S/P FX. COMPARISON: 06/07/2023 ACCESSION NUMBER(S): [id number] ORDERING CLINICIAN: SAM GRACIA FINDINGS: Redemonstration offset fracture of the proximal humerus which appears to involve both the humeral neck and greater tuberosity. IMPRESSION: Similar appearing offset fracture of the proximal humerus. MACRO: None Signed by: Jose Armando Pearce 06/11/2023 10:25 PM Dictation workstation: [id number] [facility] XR Humerus - right Viewson 0 06-10-2023 Radiology Study observation (narrative) [facility] Work Phone: CNPNon 06-08-2023 [facility] FELISHA JOAQUIN ([id number]) 1945 F Date Time Provider Department 06/08/23 [facility] During your visit today, we recorded the following information about you: Heidy Rangel LPN 06/08/2023 9:04 AM Signed Pt's daughter calls to report that pt fell last night and broke her arm. Pt was taken to [facility]. Daughter reports they immobilized arm in a sling and advised pt to see an Ortho surgeon. Daughter transferred to Ortho stratigraphy teacher. HUA Raymond Jordan L, DO 06/08/2023 3:58 PM Signed We haven't seen her recently in office, needs to see Ortho Trace Mendiola DO Allergies As of Date: 06/08/2023 (No Known Allergies) Date Reviewed: 08/21/2022 Reviewed by: Ne Angelo, OD - Fully Assessed Reason for Visit: Arm Injury [1960] Prescriptions as of 06/08/2023 - pantoprazole DR (PROTONIX) 40 mg tablet TAKE 1 TABLET EVERY DAY - prednisoLONE acetate (PRED FORTE, ECONOPRED PLUS) 1 % ophthalmic suspension Use 1 Drop in the right eye four times daily. - ketorolac (ACULAR) 0.5 % ophthalmic solution Use 1 Drop in the right eye four times daily. - docusate sodium (STOOL SOFTENER) 100 mg capsule Take 1 capsule by mouth twice daily. - AMOXICILLIN ORAL Take 1 tablet by mouth twice daily. - Fexofenadine-Pseudoephe drine (ELSIE-D 24 HOUR) 180-240 mg per 24 hr tablet Take 1 tablet by mouth once daily as needed (sinus/cold symptoms). - KLOR-CON 10 10 mEq tablet - PROPYLENE GLYCOL/PEG 400 (BLINK TEARS LUBRICATING) Eye Drops Use 1 Drop in both eyes three times daily. - VIT A/VIT C/VIT E/ZINC/COPPER (PRESERVISION AREDS ORAL) Take by mouth. - LACTOBACILLUS ACIDOPHILUS (PROBIOTIC ORAL) Take by mouth. - Naproxen SR (EC-NAPROSYN) 500 mg EC tablet Take 1 tablet by mouth twice daily as needed. - enalapril (VASOTEC) 2.5 mg tablet Take 2.5 mg by mouth once daily. - atorvastatin (LIPITOR) 20 mg tablet Take 1 tablet by mouth once daily. For cholesterol. - carvedilol (COREG) 3.125 mg tablet Take 1 tablet by mouth twice daily. - aspirin, enteric coated 81 mg EC tablet Take 81 mg by mouth once daily. - ascorbic acid, vitamin C, (VITAMIN C) 500 mg tablet Take 500 mg by mouth once daily. - multivitamin tablet Take 1 tablet by mouth once daily. 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] 02/07/2016 Visual field loss [H53.40] 03/20/2016 Dry eye syndrome [H04.129] 04/07/2016 Combined forms of age-related cataract of both *04/07/2016 Vitreous floaters of both eyes [H43.393] 04/07/2016 Punctate keratitis, bilateral [H16.143] 01/27/2017 Obesity, Class III, BMI 40-49.9 (morbid obesity*09/06/2017 Epiretinal membrane (ERM) of both eyes [H35.373]10/13/2019 Essential hypertension [I10] 10/13/2019 Hemangioma of eyelid [D18.01] 10/13/2019 Status post cataract extraction and insertion o*01/19/2020 Status post cataract extraction and insertion o*01/19/2020 Dyslipidemia [E78.5] 02/17/2022 Fatigue [R53.83] 02/17/2022 Vitamin D deficiency [E55.9] 02/17/2022 Medicare annual wellness visit, subsequent [Z00*02/17/2022 Encounter Status:Closed by OMAR GUZMAN LPN on 06/08/23 Normal [facility] CT HEAD WO IV CONTRASTon CT HEAD WO IV CONTRAST Interpreted By: Kai Khanna, STUDY: CT HEAD WO IV CONTRAST; 06/07/2023 8:05 pm INDICATION: Signs/Symptoms:fall. COMPARISON: None. ACCESSION NUMBER(S): [id number] ORDERING CLINICIAN: RICK NÚÑEZ TECHNIQUE: Noncontrast axial CT scan of head was performed. Angled reformats in brain and bone windows were generated. The images were reviewed in bone, brain, blood and soft tissue windows. FINDINGS: CSF Spaces: The ventricles, sulci and basal cisterns are within normal limits. There is no extraaxial fluid collection. Moderate global volume loss loss and chronic small vessel ischemic change. Parenchyma: The gutierrez-white differentiation is intact. There is no mass effect or midline shift. There is no intracranial hemorrhage. Calvarium: The calvarium is unremarkable. Paranasal sinuses and mastoids: Visualized paranasal sinuses and mastoids are clear. IMPRESSION: No evidence of acute cortical infarct or intracranial hemorrhage. Senescent changes. MACRO: None Signed by: Kai Khanna 06/07/2023 8:16 PM Dictation workstation: [address] XR HUMERUS RIGHTon XR HUMERUS RIGHT Interpreted By: Kai Khanna, STUDY: XR HUMERUS RIGHT; XR SHOULDER RIGHT 2+ VIEWS; ; 06/07/2023 7:55 pm INDICATION: Signs/Symptoms:fall, pain. COMPARISON: None. ACCESSION NUMBER(S): [id number]; [id number] ORDERING CLINICIAN: RICK NÚÑEZ FINDINGS: Right humerus and right shoulder. Demineralization of the bones. There is an acute proximal comminuted humerus fracture with extension into the humeral head and glenohumeral joint. Large joint effusion. No dislocation. The humeral shaft distally is intact. IMPRESSION: Acute right proximal humerus fracture. No dislocation. Demineralization of the bones. MACRO: None Signed by: Kai Khanna 06/07/2023 8:18 PM Dictation workstation: [address] XR KNEE LEFT 4+ VIEWSon 05-27 XR KNEE LEFT 4+ VIEWS Interpreted By: Kai Khanna, STUDY: XR KNEE LEFT 4+ VIEWS; ; 06/07/2023 7:55 pm INDICATION: Signs/Symptoms:fall, pain. COMPARISON: None. ACCESSION NUMBER(S): [id number] ORDERING CLINICIAN: RICK NÚÑEZ FINDINGS: Left knee arthroplasty changes. Demineralization. No evidence of acute fracture. No malalignment. IMPRESSION: No evidence of acute fracture of the left knee. MACRO: None Signed by: Kai Khanna 06/07/2023 8:19 PM Dictation workstation: [address] XR SHOULDER RIGHT 2+ VIEWSon 06-07-2023 XR SHOULDER RIGHT 2+ VIEWS Interpreted By: Kai Khanna, STUDY: XR HUMERUS RIGHT; XR SHOULDER RIGHT 2+ VIEWS; ; 06/07/2023 7:55 pm INDICATION: Signs/Symptoms:fall, pain. COMPARISON: None. ACCESSION NUMBER(S): [id number]; [id number] ORDERING CLINICIAN: RICK NÚÑEZ FINDINGS: Right humerus and right shoulder. Demineralization of the bones. There is an acute proximal comminuted humerus fracture with extension into the humeral head and glenohumeral joint. Large joint effusion. No dislocation. The humeral shaft distally is intact. IMPRESSION: Acute right proximal humerus fracture. No dislocation. Demineralization of the bones. MACRO: None Signed by: Kai Khanna 06/07/2023 8:18 PM Dictation workstation: [id number] [place] [address] MG Breast Screeningon 2022 * * *Final Report* * * DATE OF EXAM: Mar 29 2023 10:13AM [facility] SCREENING / PROCEDURE REASON: Screening mammogram for breast cancer * * * * Physician Interpretation * * * * RESULT: #[id number] - [facility] SCREENING BILATERAL DIGITAL SCREENING MAMMOGRAM WITH CAD: 03/29/2023 HISTORY: /Screening Mammogram - patient reports NO breast symptoms /priors available for comparison Screening Mammogram For Breast Cancer. RESULT: TECHNIQUE: The study was acquired using full field digital technology and interpreted from soft copy. Current study was also evaluated with a Computer Aided Detection (CAD). Comparison is made to exams dated: 03/12/2022 mammogram and 12/09/2018 mammogram - [facility]. There are scattered areas of fibroglandular density. There is an oval asymmetry in the right breast middle depth lateral region seen on the craniocaudal view only. No other significant masses, calcifications, or other findings are seen in either breast. DIVISION OF RADIOLOGY Provider, [facility] - 03/30/2023 * * *Final Report* * * DATE OF EXAM: Mar 29 2023 10:13AM [facility] SCREENING / PROCEDURE REASON: Screening mammogram for breast cancer * * * * Physician Interpretation * * * * RESULT: #[id number] - [facility] SCREENING BILATERAL DIGITAL SCREENING MAMMOGRAM WITH CAD: 03/29/2023 HISTORY: /Screening Mammogram - patient reports NO breast symptoms /priors available for comparison Screening Mammogram For Breast Cancer. RESULT: TECHNIQUE: The study was acquired using full field digital technology and interpreted from soft copy. Current study was also evaluated with a Computer Aided Detection (CAD). Comparison is made to exams dated: 03/12/2022 mammogram and 12/09/2018 mammogram - [facility]. There are scattered areas of fibroglandular density. There is an oval asymmetry in the right breast middle depth lateral region seen on the craniocaudal view only. No other significant masses, calcifications, or other findings are seen in either breast. IMPRESSION IMPRESSION: INCOMPLETE: NEEDS ADDITIONAL IMAGING EVALUATION The oval asymmetry in the right breast is indeterminate. Additional views with possible ultrasound are recommended. Sacha muller/araceli:03/30/2023 10:53:50 Talent Consultant(s): RT Benita(R)(M), [facility] letter sent: Additional Imaging Needed Mammogram BI-RADS: 0 Incomplete: needs additional imaging evaluation If this report indicates you need additional imaging, and it has NOT yet been performed, please call , to schedule. We sincerely thank you for choosing the [facility] for your breast imaging needs. Multiple national specialty organizations have released breast cancer screening guidelines for women at average risk for developing breast cancer - guidelines that are based on both evidence and opinion, yet differ on when to start and how often to screen for breast cancer. With representation from Breast Imaging, Internal Medicine, Women's Health, Family Medicine, and Medical/Surgical Oncology, the [facility] has carefully reviewed the data and reached the following consensus: 1) All women should engage in shared decision-making with their providers to decide when to start and how often to screen; 2) All women should have the opportunity to start screening mammography at age 40; 3) For women ages 45-55, we recommend annual screening mammograms; 4) For women ages 55 and over, we support both the transition from an annual to a biennial interval if this aligns more with patient's values and preferences, or continuation with annual screening; 5) All women should discuss with their providers when to stop screening mammograms. Tank Builder Helper: Araceli Transcribe Date/Time: Mar 29 2023 9:54A Dictated by: SACHA ACEVEDO MD This examination was interpreted and the report reviewed and electronically signed by: SACHA ACEVEDO MD on Mar 30 2023 10:53AM EST [facility] MG Breast ScreeningOrdered B y: [facility] Provider on 03-30-2023 [facility] MG Breast Screeningon 2022 Radiology Study observation (narrative) [facility] ECG 12 Leadon 12-01-2022 Atrial Rate [facility] P Gibson [facility] P-R Interval [facility] Q-T Interval [facility] Q-T Interval (corrected) [facility] QRS Duration [facility] QTC Calculation (Bezet) [facility] R Gibson [facility] T Gibson [facility] MILDRED SCREENINGon 03-12-2022 [facility] CBC W Auto Differential pane l (Bld)on 02-16-2022 Basophils (Bld) [#/Vol] <0.11 k/uL [facility] Basophils/100 WBC (Bld) 0.1 % [facility] Differential cell count method Nom (Bld) Auto [facility] Eosinophils (Bld) [#/Vol] 0.20 10*3/uL <0.46 k/uL [facility] Eosinophils/100 WBC (Bld) 2.7 % [facility] Erythrocyte distribution width (RBC) [Ratio] 13.7 % 11.5 - 15.0 % [facility] Hematocrit (Bld) [Volume fraction] 38.5 % 36.0 - 46.0 % [facility] Hemoglobin (Bld) [Mass/Vol] 12.8 g/dL 11.5 - 15.5 g/dL [facility] Immature granulocytes (Bld) [#/Vol] <0.10 k/uL [facility] Immature granulocytes/100 WBC (Bld) 0.3 % [facility] Lymphocytes (Bld) [#/Vol] 1.47 10*3/uL 1.00 - 4.00 k/uL [facility] Lymphocytes/100 WBC (Bld) 20.0 % [facility] MCH (RBC) [Entitic mass] 31.9 pg 26.0 - 34.0 pg [facility] MCHC (RBC) [Mass/Vol] 33.2 g/dL 30.5 - 36.0 g/dL [facility] MCV (RBC) [Entitic vol] 96.0 fL 80.0 - 100.0 fL [facility] Monocytes (Bld) [#/Vol] 0.50 10*3/uL <0.87 k/uL [facility] Monocytes/100 WBC (Bld) 6.8 % [facility] Neutrophils (Bld) [#/Vol] 5.15 10*3/uL 1.45 - 7.50 k/uL [facility] Neutrophils/100 WBC (Bld) 70.1 % [facility] Nucleated RBC (Bld) [#/Vol] <0.01 k/uL [facility] Nucleated RBC/100 WBC (Bld) [Ratio] 0.0 /100 WBC [facility] Platelet mean volume (Bld) [Entitic vol] 9.7 fL 9.0 - 12.7 fL [facility] Platelets (Bld) [#/Vol] 245 10*3/uL 150 - 400 k/uL [facility] RBC (Bld) [#/Vol] 4.01 10*6/uL 3.90 - 5.2 0 m/uL [facility] WBC (Bld) [#/Vol] 7.35 10*3/uL 3.70 - 11. 00 k/uL [facility] ECG 12 leadon 11-24-2021 Atrial Rate [facility] P Gibson [facility] P-R Interval [facility] Q-T Interval [facility] Q-T Interval (corrected) [facility] QRS Duration [facility] QTC Calculation (Bezet) [facility] R Gibson [facility] T Gibson [facility] Ventricular Rate [facility] History and Physical - Surgi rafal Update < 30 dayson 01-18-2020 History and Physical - Surgical Update < 30 days History & Physical Reviewed: I have reviewed the History and Physical dated: 10-Jan-2020 History and Physical reviewed and relevant findings noted. Patient examined to review pertinent physical findings.: No significant changes Home Medications Reviewed: no changes noted Allergies Reviewed: no changes noted Consent: COVID-19 Consent: COVID-19 Risk ConsentSurgeon has reviewed phillips risks related to the risk of cira COVID-19 and if they contract COVID-19 what the risks are. Signatures/Attestation: Note Completion: Attending Provider Inpatient Certification StatementObservation patient/other outpatient visits Electronic Signatures: Yaya Juan) (Signed 18-Jan-2020 07:44) Authored: History & Physical Reviewed, Consent, Note Completion Last Updated: 18-Jan-2020 07:44 by Yaya Juan) [facility] Preop Checkliston 01-18-2020 Preop Checklist Preop Checklist: Preop Checklist: Arrival [id number] Arrival Time07:13 Procedure Typeleft cataract Temperature C36.5 degrees C Temperature F97.8 degrees F Heart Rate70 beats per minute Respiratory Rate17 breath per minute Blood Pressure Xudrdehl001 mm/Hg Blood Pressure Ztbdpybux22 mm/Hg NPO [id number] 22:00 ID Band Onyes Allergy Bandno known allergies Consent Signedyes H&P Completeyes Anesthesia Assessment Completedyes EKG Performednot ordered Chest X-Ray Performednot ordered HCG Urine TestN/A Chlorhexadine Bath Givennot applicable Nasal Antiseptic Appliednot applicable Hair Washednot applicable Soap and water bath with hair shampoo the night before surgerynot applicable Hat placed on infant prior to transportnot applicable SCD's Appliedno BRYNN Hose Appliednot ordered Denturesnot applicable Prostheticsnot applicable Hearing Aidsnot applicable Valuables Securednot applicable Glasses / Contactsleft in patient room Bowel Prepno Cardiovascular Assessment: Apicalregular Extremitieswarm Respiratory Assessment: Respirationsunlabored Air Exchangegood, equal Breath Soundsclear Neurological Assessment: Level of Consciousnessalert Mobilitymoves all extremities Able to Express Selfyes Age Appropriateyes Emotional Statuscalm Preop Education: Surgical Site Infection Preventionyes Pain Scales and Managementyes Language / Communication: Language / CommunicationEnglish Electronic Signatures: Aruna Wagner (HARI) (Signed 18-Jan-2020 07:32) Authored: Preop Checklist Last Updated: 18-Jan-2020 07:32 by Aruna Wagner (HARI) Normal [facility] CORONAVIRUS 2019, SCREEN ASY MPTOMATICon 01-17-2020 CORONAVIRUS 2019,PCR NOT DETECTED Normal Not Detected [facility] Comment on above: Result Comment: This assay is designed to detect the N, ORF1ab and/or S genes of SARS-CoV-2 via nucleic acid amplification. A Negative (NOT DETECTED) result does not preclude 2019-nCoV infection since the adequacy of sample collection and/or low viral burden may result in presence of viral nucleic acids below the clinical sensitivity of this test method. Negative (NOT DETECTED) result should not be used as the sole basis for treatment or other patient management decisions. Rather negative results should be combined with clinical observations, patient history, and epidemiological information to make patient management decisions. Fact sheet for providers: https://www.fda.gov/media/055506/download Fact sheet for patients: https://www.fda.gov/media/883146/download This test has received FDA Emergency Use Authorization (EUA) and has been verified by [facility] ([facility]). This test is only authorized for the duration of time that circumstances exist to justify the authorization of the emergency use of in vitro diagnostic tests for the detection of SARS-CoV-2 virus and/or diagnosis of COVID-19 infection under section 564(b)(1) of the Act, 21 U.S.C. 360bbb-3(b)(1), unless the authorization is terminated or revoked sooner. [facility] is certified under CLIA-88 as qualified to perform high complexity testing. Testing is performed in the [facility] laboratories located at [address] [place] [address]. Performed By: #### C [facility] #### [address] [place] [address] CORONAVIRUS 2019, SCREEN ASY MPTOMATICon 01-16-2020 Lab Specimen Source Nasal, Nasopharyngeal Normal [facility] Comment on above: Performed By: #### [facility] #### [address] 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 (procedure may be cancelled if no shag truck driver), center location, insurance information, remove jewerly/piercings Prep Instructions Reviewedyes Instructed to Have No Fluids Aftermidnight Stated Reason for Admissioncataract surgery Primary Contact Name and NumberCici lara [phone] Patient Belongingsremains with patient Medications Brought to Hospitalno General Health: Weight in kg98.1 kilogram(s) Weight in rlo888.2 pound(s) Weight Methodactual (measured) Scale Typestanding Height in feet5 feet Height in inches4 inch(es) Height in cm162.5 centimeter(s) Height Methodstated BMI (kg/m2)37.15 square meter Patient or Family Member Reaction to Anesthesiano previous reaction; no previous family member reaction Blood Avoidance/Restrictionsn one Health Mgmt: Symptoms/Conditions Managed at [facility] Barriers to Managing Healthnone Relationship/Environ: Resource/Environmental Concernsnone Substance: Current or Former Substance Use never: Cigarette/Tobacco(1), e-Cigarette/Vaping(1), Alcohol(1), Street Drugs Risk Screens: COVID-19 Screening Completedno exposure or symptoms Advance Directive/DNRno Advance Directive Information Givenpatient/family declined During the past month, have you often been bothered by feeling down, depressed or hopelessno During the past month, have you often had little interest or pleasure in doing thingsno Have you had any thoughts of harming yourselfno Have you had any thoughts of harming anyone elseno Are you or have you been threatened or abused physically,emotionally or sexually abused by anyoneno Do you feel UNSAFE going back to the place you are livingno Patient is Able to be Assessed for Learningyes Factors Influencing Readiness to Learnanxiety Factors that Impact Ability to Learnhearing problems, visual problems Devices/Methods Used to Communicateglasses, hearing aids Learning Preferencesverbal instruction; written material Cultural Considerationsnone Developmental Considerationsnone Restoration Considerationsnone Other learner availableyes... Learnerfamily Factors Influencing Readiness to Learnanxiety Factors that Impact Ability to Learnvisual problems Devices/Methods Used to Communicateglasses Learning Preferencesverbal instruction, written material Cultural Considerationsnone Developmental Considerationsnone Restoration Considerationsnone Falls RiskPatient location auto qualifies him/her for HIGH RISK. Are there any cultural, spiritual, zoroastrian practices/values/needs that are important for us to knowno Pain Scalenumerical 0-10 Pain Scale Educationteaching provided Current Pain Level0 = None Acceptable Pain Level7 = Severe Chronic Painno Information Review: Allergies, Home Meds and Significant Events have been Reviewed and Verified with Patient/Familyyes Allergy, Intolerance, Adverse Event: Allergies: No Known Allergies: Active Electronic Signatures: Aruna Wagner) (Signed 18-Jan-2020 07:29) Authored: Profile, Additional Information Ashley Antonio) (Signed 12-Jan-2020 11:53) Authored: Profile, Additional Information Last Updated: 18-Jan-2020 07:29 by Aruna Wagner (HARI) References: 1. Data Referenced From Patient Profile - Preop v2 02-Jan-2020 14:39 [facility] History and Physical - Surgi rafal Update < 30 dayson 01-04-2020 History and Physical - Surgical Update < 30 days History & Physical Reviewed: I have reviewed the History and Physical dated: 04-Jan-2020 History and Physical reviewed and relevant findings noted. Patient examined to review pertinent physical findings.: No significant changes Home Medications Reviewed: no changes noted Allergies Reviewed: no changes noted Consent: COVID-19 Consent: COVID-19 Risk ConsentSurgeon has reviewed phillips risks related to the risk of cira COVID-19 and if they contract COVID-19 what the risks are. Electronic Signatures: Yaya Juan) (Signed 04-Jan-2020 06:50) Authored: History & Physical Reviewed, Consent, Signatures/Attestation Last Updated: 04-Jan-2020 06:50 by Yaya Juan) [facility] Preop Checkliston 01-04-2020 Preop Checklist Preop Checklist: Preop Checklist: Arrival [id number] Arrival Time06:40 Procedure Typeright cataract surgery Temperature C36.2 degrees C Temperature F97.3 degrees F Heart Rate66 beats per minute Respiratory Rate16 breath per minute Blood Pressure Hjdtkxwi194 mm/Hg Blood Pressure Zmuvrleic53 mm/Hg NPO [id number] 17:30 NPO Commentsips of water this morning ID Band Onyes Allergy Bandno known allergies Consent Signedyes H&P Completeyes Anesthesia Assessment Completedyes EKG Performednot ordered Chest X-Ray Performednot ordered HCG Urine TestN/A Chlorhexadine Bath Givennot applicable Nasal Antiseptic Appliednot applicable Hair Washednot applicable Soap and water bath with hair shampoo the night before surgerynot applicable Hat placed on prior to transportnot applicable SCD's Appliednot applicable BRYNN Hose Appliednot ordered Denturesnot applicable Prostheticsnot applicable Hearing Aidsremain with patient Valuables Securedleft in patient room Glasses / Contactsleft in patient room Bowel Prepno Cardiovascular Assessment: Apicalregular Extremitieswarm Respiratory Assessment: Respirationsunlabored Air Exchangegood Breath Soundsclear Neurological Assessment: Level of Consciousnessalert, oriented Mobilitymoves all extremities Able to Express Selfyes Age Appropriateyes Emotional Statuscalm Preop Education: Surgical Site Infection Preventionyes Pain Scales and Managementyes Language / Communication: Language / CommunicationEnglish Electronic Signatures: Janeth Meek (HARI) (Signed 04-Jan-2020 07:02) Authored: Preop Checklist Last Updated: 04-Jan-2020 07:02 by Janeth Meek (HARI) Normal [facility] CORONAVIRUS 2019, SCREEN ASY MPTOMATICon 01-03-2020 CORONAVIRUS 2019,PCR NOT DETECTED Normal Not Detected [facility] Comment on above: Result Comment: This assay is designed to detect the N, ORF1ab and/or S genes of SARS-CoV-2 via nucleic acid amplification. A Negative (NOT DETECTED) result does not preclude 2019-nCoV infection since the adequacy of sample collection and/or low viral burden may result in presence of viral nucleic acids below the clinical sensitivity of this test method. Negative (NOT DETECTED) result should not be used as the sole basis for treatment or other patient management decisions. Rather negative results should be combined with clinical observations, patient history, and epidemiological information to make patient management decisions. Fact sheet for providers: https://www.fda.gov/media/303859/download Fact sheet for patients: https://www.fda.gov/media/796346/download This test has received FDA Emergency Use Authorization (EUA) and has been verified by [facility] ([facility]). This test is only authorized for the duration of time that circumstances exist to justify the authorization of the emergency use of in vitro diagnostic tests for the detection of SARS-CoV-2 virus and/or diagnosis of COVID-19 infection under section 564(b)(1) of the Act, 21 U.S.C. 360bbb-3(b)(1), unless the authorization is terminated or revoked sooner. [facility] is certified under CLIA-88 as qualified to perform high complexity testing. Testing is performed in the [facility] laboratories located at [address] [place] [address]. Performed By: #### C OVSC #### [address] [place] [address] CORONAVIRUS 2019, SCREEN ASY MPTOMATICon 01-02-2020 Lab Specimen Source Nasal, Nasopharyngeal Normal [facility] Comment on above: Performed By: #### C OVSC #### [facility] [address] 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), center location, insurance information, remove jewerly/piercings Prep Instructions Reviewedyes Instructed to Have No Fluids Aftermidnight Stated Reason for Admissionright cataract surgery Primary Contact Name and NumberIrish- danielle- [phone] Patient Belongingsremains with patient Medications Brought to Hospitalno General Health: Weight in kg98.1 kilogram(s) Weight in gct365.2 pound(s) Weight Methodactual (measured) Scale Typestanding Height in feet5 feet Height in inches4 inch(es) Height in cm162.5 centimeter(s) Height Methodstated BMI (kg/m2)37.15 square meter Patient or Family Member Reaction to Anesthesiano previous reaction; no previous family member reaction Blood Avoidance/Restrictionsn one Health Mgmt: Symptoms/Conditions Managed at Homecardiovascular; gastrointestinal; musculoskeletal Cardiovascular Symptoms/Conditionshype rtension Gastrointestinal Symptoms/Conditionsrefl ux/heartburn Musculoskeletal Symptoms/Conditionsoste oarthritis Barriers to Managing Healthnone Relationship/Environ: Resource/Environmental Concernsnone Substance: Current or Former Substance Use never: Cigarette/Tobacco, e-Cigarette/Vaping, Alcohol, Street Drugs Risk Screens: COVID-19 Screening Completedno exposure or symptoms Advance Directive/DNRno Advance Directive Information Givenpatient/family declined During the past month, have you often been bothered by feeling down, depressed or hopelessno During the past month, have you often had little interest or pleasure in doing thingsno Have you had any thoughts of harming yourselfno Have you had any thoughts of harming anyone elseno Are you or have you been threatened or abused physically,emotionally or sexually abused by anyoneno Do you feel UNSAFE going back to the place you are livingno Patient is Able to be Assessed for Learningyes Factors Influencing Readiness to Learnanxiety Factors that Impact Ability to Learnhearing problems, visual problems Devices/Methods Used to Communicateglasses, hearing aids Learning Preferencesverbal instruction; written material Cultural Considerationsnone Developmental Considerationsnone Restoration Considerationsnone Other learner availableyes... Learnerfamily Factors Influencing Readiness to Learnanxiety Factors that Impact Ability to Learnvisual problems Devices/Methods Used to Communicateglasses Learning Preferencesverbal instruction, written material Cultural Considerationsnone Developmental Considerationsnone Restoration Considerationsnone Falls RiskPatient location auto qualifies him/her for HIGH RISK. Are there any cultural, spiritual, zoroastrian practices/values/needs that are important for us to knowno Pain Scalenumerical 0-10 Pain Scale Educationteaching provided Current Pain Level0 = None Acceptable Pain Level7 = Severe Chronic Painno Information Review: Allergies, Home Meds and Significant Events have been Reviewed and Verified with Patient/Familyyes Allergy, Intolerance, Adverse Event: Allergies: No Known Allergies: Active Problem List: Medical History: Hypercholesterolemia: Catalog Name: Pure hypercholesterolemia, unspecified Hypertension: Catalog Name: Essential (primary) hypertension GERD (gastroesophageal reflux disease): Catalog Name: Gastro-esophageal reflux disease without esophagitis History of bunionectomy: Catalog Name: Other specified postprocedural states Arthritis: Catalog Name: Unspecified osteoarthritis, unspecified site Surg History: History of bunionectomy: Catalog Name: Other specified postprocedural states History of surgery on wrist: Catalog Name: Other specified postprocedural states H/O total knee replacement: Catalog Name: Presence of unspecified artificial knee joint Electronic Signatures: Janeth Meek (HARI) (Signed 04-Jan-2020 06:54) Authored: Profile, Additional Information Ashley Antonio) (Signed 02-Jan-2020 14:41) Authored: Profile, Additional Information Last Updated: 04-Jan-2020 06:54 by Janeth Meek) [facility] Vital Signs Date Time Vital Sign Value Performing Clinician Facility 09-29-2024 09:24-0400 Body mass index (BMI) [Ratio] 36.78 kg/m2 Candice Kiran MD Work Phone: [facility] 09-29-2024 09:24-0400 Body weight 100.25 kg Candice Kiran MD Work Phone: [facility] 09-29-2024 09:24-0400 Diastolic blood pressure 80 mm[Hg] Candice Kiran MD Work Phone: [facility] 09-29-2024 09:24-0400 Heart rate 69 /min Candice Kiran MD Work Phone: [facility] 09-29-2024 09:24-0400 SaO2% (BldA) [Mass fraction] 96 % Candice Kiran MD Work Phone: [facility] 09-29-2024 09:24-0400 Systolic blood pressure 128 mm[Hg] Candice Kiran MD Work Phone: [facility] 06-01-2024 09:00-0500 Body height 167 cm Kaylen Best SNOUT PULLER.VEGETABLE PREPARER Work Phone: [facility] 06-01-2024 09:00-0500 Body mass index (BMI) [Ratio] 35.33 kg/m2 Kaylen Best SNOUT PULLER.VEGETABLE PREPARER Work Phone: [facility] 06-01-2024 09:00-0500 Body weight 98.52 kg Kaylen Best SNOUT PULLER.VEGETABLE PREPARER Work Phone: [facility] 06-01-2024 09:00-0500 Diastolic blood pressure 62 mm[Hg] Kaylen Best SNOUT PULLER.VEGETABLE PREPARER Work Phone: [facility] 06-01-2024 09:00-0500 Heart rate 66 /min Kaylen Best SNOUT PULLER.VEGETABLE PREPARER Work Phone: [facility] 06-01-2024 09:00-0500 Respiratory rate 14 /min Kaylen Best SNOUT PULLER.VEGETABLE PREPARER Work Phone: [facility] 06-01-2024 09:00-0500 SaO2% (BldA) [Mass fraction] 98 % Kaylen Best SNOUT PULLER.VEGETABLE PREPARER Work Phone: [facility] 06-01-2024 09:00-0500 Systolic blood pressure 122 mm[Hg] Kaylen Best VEGETABLE PREPARER Work Phone: [facility] 01-17-2024 09:08-0400 Body height 165.1 cm Monica Porter MD Work Phone: [facility] 01-17-2024 09:08-0400 Body mass index (BMI) [Ratio] 36.39 kg/m2 Monica Porter MD Work Phone: [facility] 01-17-2024 09:08-0400 Body weight 99.2 kg Monica Porter MD Work Phone: [facility] 10-07-2023 12:25-0400 Diastolic blood pressure 75 mm[Hg] Maryam Lugo MD Work Phone: [facility] 10-07-2023 12:25-0400 Heart rate 94 /min Maryam Lugo MD Work Phone: [facility] 10-07-2023 12:25-0400 Respiratory rate 18 /min Maryam Lugo MD Work Phone: [facility] 10-07-2023 12:25-0400 SaO2% (BldA) [Mass fraction] 99 % Maryam Lugo MD Work Phone: [facility] 10-07-2023 12:25-0400 Systolic blood pressure 144 mm[Hg] Maryam Lugo MD Work Phone: [facility] 10-07-2023 12:10-0400 Body temperature 96.4 [degF] Maryam Lugo MD Work Phone: [facility] 10-07-2023 09:21-0400 Body height 165.1 cm Maryam Lugo MD Work Phone: [facility] 10-07-2023 09:21-0400 Body mass index (BMI) [Ratio] 37.86 kg/m2 Maryam Lugo MD Work Phone: [facility] 10-07-2023 09:21-0400 Body weight 103.2 kg Maryam Lugo MD Work Phone: [facility] 09-28-2023 07:05-0400 Body mass index (BMI) [Ratio] 39.72 kg/m2 Chyna Sirisha SNOUT PULLER.VEGETABLE PREPARER Work Phone: [facility] 09-28-2023 07:05-0400 Body weight 104.96 kg Chyna Sirisha SNOUT PULLER.VEGETABLE PREPARER Work Phone: [facility] 09-28-2023 07:05-0400 Diastolic blood pressure 82 mm[Hg] Chyna Sirisha SNOUT PULLER.VEGETABLE PREPARER Work Phone: [facility] 09-28-2023 07:05-0400 Heart rate 78 /min Chyna Sirisha SNOUT PULLER.VEGETABLE PREPARER Work Phone: [facility] 09-28-2023 07:05-0400 Respiratory rate 18 /min Chyna Sirisha SNOUT PULLER.VEGETABLE PREPARER Work Phone: [facility] 09-28-2023 07:05-0400 SaO2% (BldA) [Mass fraction] 94 % Chyna Sirisha SNOUT PULLER.VEGETABLE PREPARER Work Phone: [facility] 09-28-2023 07:05-0400 Systolic blood pressure 136 mm[Hg] Chyna Sirisha SNOUT PULLER.VEGETABLE PREPARER Work Phone: [facility] 08-11-2023 07:47-0400 Body temperature 97.2 [degF] Indira Levy MD Work Phone: [facility] 08-11-2023 07:47-0400 Diastolic blood pressure 60 mm[Hg] Indira Levy MD Work Phone: [facility] 08-11-2023 07:47-0400 Heart rate 63 /min Indira Levy MD Work Phone: [facility] 08-11-2023 07:47-0400 Respiratory rate 16 /min nIdira Levy MD Work Phone: [facility] 08-11-2023 07:47-0400 SaO2% (BldA) [Mass fraction] 95 % Indira Levy MD Work Phone: [facility] 08-11-2023 07:47-0400 Systolic blood pressure 129 mm[Hg] Indira Levy MD Work Phone: [facility] 08-10-2023 08:41-0400 Body height 165.1 cm Indira Levy MD Work Phone: [facility] 08-10-2023 08:41-0400 Body mass index (BMI) [Ratio] 37.93 kg/m2 Indira Levy MD Work Phone: [facility] 08-10-2023 08:41-0400 Body weight 103.4 kg Indira Levy MD Work Phone: [facility] 07-13-2023 13:13-0400 Body weight 107.68 kg Chyna Sirisha SNOUT PULLER.VEGETABLE PREPARER Work Phone: [facility] 07-13-2023 13:13-0400 Diastolic blood pressure 78 mm[Hg] Chyna Sirisha SNOUT PULLER.VEGETABLE PREPARER Work Phone: [facility] 07-13-2023 13:13-0400 Heart rate 71 /min Chyna Melgarman SNOUT PULLER.VEGETABLE PREPARER Work Phone: [facility] 07-13-2023 13:13-0400 SaO2% (BldA) [Mass fraction] 98 % Chyna Sirisha SNOUT PULLER.VEGETABLE PREPARER Work Phone: [facility] 07-13-2023 13:13-0400 Systolic blood pressure 136 mm[Hg] Chyna Sirisha SNOUT PULLER.VEGETABLE PREPARER Work Phone: [facility] 07-02-2023 10:35-0500 Body mass index (BMI) [Ratio] 38.94 kg/m2 Sam Gracia MD Work Phone: [facility] 07-02-2023 10:35-0500 Body weight 106.14 kg Sam Gracia MD Work Phone: [facility] 03-16-2023 09:58-0500 Body height 165.1 cm Monica Porter MD Work Phone: [facility] 03-16-2023 09:58-0500 Body mass index (BMI) [Ratio] 38.01 kg/m2 Monica Porter MD Work Phone: [facility] 03-16-2023 09:58-0500 Body temperature 97.59 [degF] Monica Porter MD Work Phone: [facility] 03-16-2023 09:58-0500 Body weight 103.6 kg Monica Porter MD Work Phone: [facility] 12-01-2022 11:25-0400 Body height 165.1 cm Estella Soto CNP Work Phone: [facility] 12-01-2022 11:25-0400 Body mass index (BMI) [Ratio] 37.77 kg/m2 Estella Soto VEGETABLE PREPARER Work Phone: [facility] 12-01-2022 11:25-0400 Body weight 102.97 kg Estella Soto VEGETABLE PREPARER Work Phone: [facility] 12-01-2022 11:25-0400 Diastolic blood pressure 77 mm[Hg] Estella Soto VEGETABLE PREPARER Work Phone: [facility] 12-01-2022 11:25-0400 Heart rate 66 /min Estella Soto VEGETABLE PREPARER Work Phone: [facility] 12-01-2022 11:25-0400 SaO2% (BldA) [Mass fraction] 96 % Estella Soto VEGETABLE PREPARER Work Phone: [facility] 12-01-2022 11:25-0400 Systolic blood pressure 122 mm[Hg] Estella Soto VEGETABLE PREPARER Work Phone: [facility] 02-16-2022 14:52-0400 Body temperature 97.3 [degF] Trace Mendiola DO Work Phone: [facility] 02-16-2022 14:52-0400 Body weight 102.06 kg Trace Mendiola DO Work Phone: [facility] 02-16-2022 14:52-0400 Diastolic blood pressure 80 mm[Hg] Trace Mendiola DO Work Phone: [facility] 02-16-2022 14:52-0400 Heart rate 76 /min Trace Mendiola DO Work Phone: [facility] 02-16-2022 14:52-0400 Respiratory rate 20 /min Trace Mendiola DO Work Phone: [facility] 02-16-2022 14:52-0400 Systolic blood pressure 110 mm[Hg] Trace Mendiola DO Work Phone: [facility] 11-24-2021 14:02-0400 Body height 165.1 cm Peyton Kenyon VEGETABLE PREPARER Work Phone: [facility] 11-24-2021 14:02-0400 Body mass index (BMI) [Ratio] 37.77 kg/m2 Peyton Kenyon VEGETABLE PREPARER Work Phone: [facility] 11-24-2021 14:02-0400 Body weight 102.97 kg Peyton Kenyon VEGETABLE PREPARER Work Phone: [facility] 11-24-2021 14:02-0400 Diastolic blood pressure 76 mm[Hg] Peyton Kenyon VEGETABLE PREPARER Work Phone: [facility] 11-24-2021 14:02-0400 Heart rate 66 /min Peyton Kenyon VEGETABLE PREPARER Work Phone: [facility] 11-24-2021 14:02-0400 SaO2% (BldA) [Mass fraction] 96 % Peyton Kenyon VEGETABLE PREPARER Work Phone: [facility] 11-24-2021 14:02-0400 Systolic blood pressure 121 mm[Hg] Peyton Kenyon VEGETABLE PREPARER Work Phone: [facility] 05-21-2020 09:20-0500 BMI (Body Mass Index) 36.11 kg/m2 Candice Kiran [facility] 05-21-2020 09:20-0500 Body weight 98.43 kg Candice Kiran [facility] 05-21-2020 09:20-0500 BP Diastolic 77 mm[Hg] Candice Kiran [facility] 05-21-2020 09:20-0500 BP Systolic 143 mm[Hg] Candice Kiran [facility] 05-21-2020 09:20-0500 Height 165.1 cm Candice Kiran [facility] 05-17-2019 09:17-0500 BMI (Body Mass Index) 33.8 kg/m2 Shawna Zhou [facility] 05-17-2019 09:17-0500 Body weight 92.13 kg Shawna Lyonsmno [facility] 05-17-2019 09:17-0500 BP Diastolic 83 mm[Hg] Shawnawai Lyonsmno [facility] 05-17-2019 09:17-0500 BP Systolic 134 mm[Hg] Shawnawai Lyonsmno [facility] 05-17-2019 09:17-0500 Height 165.1 cm [facility]-17-2019 09:17-0500 Pulse (Heart Rate) 67 /min [facility] 05-17-2019 09:17-0500 Pulse Oximetry 100 % Shawna Lyonsmno [facility] 09-07-2018 09:23-0400 BMI (Body Mass Index) 33.61 kg/m2 Shawnawai Lyonsmno [facility] 09-07-2018 09:23-0400 BP Diastolic 80 mm[Hg] Shawna Lyonsmno [facility] 09-07-2018 09:23-0400 BP Systolic 124 mm[Hg] Shawna Lyonsmno [facility] 09-07-2018 09:23-0400 Height 165.1 cm [facility] 09-07-2018 09:23-0400 Pulse (Heart Rate) 75 /min [facility] 09-07-2018 09:23-0400 Pulse Oximetry 97 % Shawna Lyonsmno [facility] 09-07-2018 09:23-0400 Weight 91.63 kg Shawna Zhou [facility] 05-18-2017 09:31-0500 BMI (Body Mass Index) 40.44 kg/m2 Sam Castano [facility] Work Phone: 05-18-2017 09:31-0500 BP Diastolic 74 mm[Hg] Sam Castano [facility] Work Phone: 05-18-2017 09:31-0500 BP Systolic 123 mm[Hg] Sam Castano [facility] Work Phone: 05-18-2017 09:31-0500 Height 165.1 cm Sam Castano [facility] Work Phone: 05-18-2017 09:31-0500 Pulse (Heart Rate) 69 /min Sam Castano [facility] Work Phone: 05-18-2017 09:31-0500 Pulse Oximetry 93 % Sam Castano [facility] Work Phone: 05-18-2017 09:31-0500 Weight 110.22 kg Sam Castano [facility] Work Phone: Encounters Encounter Date Encounter Type Care Provider Facility Start: 09-29-2024 End: 09-29-2024 Office outpatient visit 15 minutes Candiec Kiran MD Work Phone: [facility] Comment on above: Primary hypertension (Primary Dx); LV dysfunction with recoverability Start: 09-29-2024 End: 09-29-2024 ambulatory CANDICE KIRAN [facility] Start: 08-14-2024 End: 08-14-2024 Subsequent hospital visit by physician Berkley Najera101 X-Ray 2 [facility] Comment on above: Arthritis of right w rist; Extensor tendon rupture of hand, right, initial encounter Start: 08-14-2024 End: 08-14-2024 ambulatory MARYAM LEVY [facility] Start: 08-14-2024 End: 08-14-2024 Office outpatient visit 15 minutes Maryam Lugo MD Work Phone: [facility] Comment on above: Arthritis of right w rist; Extensor tendon rupture of hand, right, initial encounter Start: 08-07-2024 End: 08-07-2024 Office outpatient visit 15 minutes Indira Levy MD Work Phone: [facility] Comment on above: S/P reverse total sh oulder arthroplasty, right (Primary Dx) Start: 08-07-2024 End: 08-07-2024 Subsequent hospital visit by physician Berkley Najera101 X-Ray 1 [facility] Comment on above: S/P reverse total sh oulder arthroplasty, right Start: 08-07-2024 End: 08-07-2024 ambulatory INDIRA LEVY [facility] Start: 06-01-2024 End: 06-01-2024 Telephone encounter Kaylen Best APRN.VEGETABLE PREPARER Work Phone: [facility] Comment on above: Medication Update Start: 06-01-2024 End: 06-01-2024 Patient encounter procedure Kaylen Best APRN.VEGETABLE PREPARER Work Phone: [facility] Comment on above: Bilateral lower extr emity edema; Essential hypertension Start: 06-01-2024 End: 06-01-2024 ambulatory KAYLEN BEST Facility:[facility] Start: 05-29-2024 End: 05-29-2024 ambulatory Trace Mendiola DO Work Phone: [facility] Comment on above: Allied Health Visit (Medication Adherence Outreach ) Start: 05-23-2024 End: 05-23-2024 ambulatory [facility] Facility:[facility] Start: 03-21-2024 End: 03-21-2024 ambulatory [facility] Facility:[facility] Start: 03-02-2024 End: 03-03-2024 Refill Chyna Grimm APRN.VEGETABLE PREPARER Work Phone: [facility] Comment on above: Refill Request Start: 02-24-2024 End: 02-24-2024 ambulatory Guerda Guerrero MA [facility] Start: 02-24-2024 End: 02-24-2024 Patient encounter procedure Guerda Guerrero [facility] Comment on above: Population Health Na vigation Outreach ([facility]) Start: 02-16-2024 End: 02-17-2024 Refill Candice Kiran MD Work Phone: [facility] Comment on above: Medication Refill Start: 02-15-2024 End: 02-15-2024 ambulatory [facility] Start: 01-18-2024 End: 01-18-2024 [facility] Start: 01-17-2024 End: 01-17-2024 ambulatory MONICA PORTER [facility] Start: 01-17-2024 End: 01-17-2024 Postop follow up visit related to original px Monica Porter MD Work Phone: [facility] Comment on above: Bilateral impacted c erumen (Primary Dx); Sensorineural hearing loss, bilateral Start: 01-11-2024 End: 01-11-2024 ambulatory [facility] Facility:[facility] Start: 01-06-2024 End: 01-06-2024 ambulatory [facility] Start: 01-06-2024 ambulatory [facility] Start: 01-05-2024 End: 01-05-2024 Office outpatient visit 15 minutes Indira Levy MD Work Phone: [facility] Comment on above: S/P reverse total sh oulder arthroplasty, right (Primary Dx) Start: 01-05-2024 End: 01-05-2024 Subsequent hospital visit by physician Berkley [facility] Comment on above: S/P reverse total sh oulder arthroplasty, right Start: 01-05-2024 End: 01-05-2024 ambulatory [facility] Start: 01-04-2024 End: 01-04-2024 ambulatory [facility] Start: 01-03-2024 End: 01-03-2024 Postop follow up visit related to original px Maryam Lugo MD Work Phone: [facility] Comment on above: Extensor tendon rupt ure of hand, right, initial encounter Start: 01-03-2024 End: 01-03-2024 Subsequent hospital visit by physician Berkley [facility] 1 [facility] Comment on above: Extensor tendon rupt ure of hand, right, initial encounter Start: 01-03-2024 End: 01-03-2024 ambulatory MARYAM LEVY [facility] Start: 12-31-2023 End: 12-31-2023 ambulatory [facility] Start: 12-29-2023 End: 12-29-[facility] Start: 12-24-2023 End: 12-24-2023 ambulatory [facility] Start: 12-23-2023 ambulatory [facility] Start: 12-20-2023 End: 12-20-2023 ambulatory [facility] Start: 12-16-2023 End: 12-16-2023 ambulatory [facility] Start: 12-13-2023 End: 12-13-2023 Patient encounter procedure [facility] Comment on above: Population Health Na vigation Outreach ([employer] [facility]) Start: 12-13-2023 End: 12-13-2023 [facility] Start: 12-09-2023 ambulatory [facility] Start: 12-06-2023 End: 12-06-2023 ambulatory [facility] Start: 12-03-2023 End: 12-03-2023 ambulatory [facility] Start: 11-29-2023 End: 11-29-2023 ambulatory [facility] Start: 11-26-2023 End: 11-26-2023 ambulatory [facility] Start: 11-25-2023 ambulatory [facility] Start: 11-24-2023 End: 11-24-2023 ambulatory [facility] Start: 11-19-2023 End: 11-19-2023 ambulatory [facility] Start: 11-18-2023 ambulatory [facility] Start: 11-12-2023 Refill Chyna guzman APRN.CNP Work Phone: [facility] Comment on above: Refill Request Start: 11-12-2023 End: 11-12-2023 Subsequent hospital visit by physician Berkley Melara X-Ray 1 [facility] Comment on above: S/P reverse total sh oulder arthroplasty, right Start: 11-12-2023 End: 11-12-2023 ambulatory [facility] Ambulatory Start: 11-12-2023 End: 11-12-2023 Office outpatient visit 15 minutes Indira Levy MD Work Phone: [facility] Comment on above: S/P reverse total sh oulder arthroplasty, right (Primary Dx) Start: 11-11-2023 ambulatory [facility] Start: 11-10-2023 Telephone encounter Trace west DO Work Phone: [facility] [place] Start: 11-10-2023 End: 11-10-2023 ambulatory [facility] Start: 11-08-2023 End: 11-08-2023 ambulatory [facility] Start: 11-04-2023 ambulatory [facility] Start: 11-01-2023 End: 11-01-2023 ambulatory [facility] Start: 10-27-2023 End: 10-27-2023 ambulatory Chyna Stearnsutzman SNOUT PULLER.VEGETABLE PREPARER Work Phone: [facility] [place] Start: 10-27-2023 Patient encounter procedure Chyna Grimm SNOUT PULLER.VEGETABLE PREPARER Work Phone: [facility] [place] Comment on above: Referral for rheumat ologist Start: 10-25-2023 End: 10-25-2023 ambulatory [facility] Start: 10-20-2023 End: 10-20-2023 ambulatory Chynagloria Melgarman SNOUT PULLER.VEGETABLE PREPARER Work Phone: [facility] [place] Comment on above: 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 Start: 10-19-2023 End: 10-19-2023 ambulatory [facility] Start: 10-19-2023 End: 10-19-2023 Postop follow up visit related to original px Maryam Lugo MD Work Phone: [facility] Comment on above: Extensor tendon rupt ure of hand, right, initial encounter (Primary Dx) Start: 10-18-2023 End: 10-18-2023 ambulatory [facility] Start: 10-15-2023 End: 10-15-2023 ambulatory [facility] Start: 10-13-2023 ambulatory Guerda Guerrero [facility] Start: 10-13-2023 Patient encounter procedure Guerda Guerrero MA [facility] Comment on above: Population Health Na vigation Outreach ([employer] min[employer]) Start: 10-07-2023 End: 10-07-2023 Subsequent hospital visit by physician Maryam Lugo MD Work Phone: [facility] [place] Comment on above: Spontaneous rupture of extensor tendons, right hand (Primary Dx) Start: 10-06-2023 End: 10-06-2023 ambulatory RODOLFO CASSIDY [facility] Start: 10-05-2023 End: 10-05-2023 ambulatory CHYNA GRIMM Facility:[facility] Start: 09-28-[address] kayla PEREZVEGETABLE PREPARER Work Phone: [facility] [place] Comment on above: Medication Update Forms Start: 09-28-2023 End: 09-28-2023 ambulatory RODOLFO [facility] Start: 09-28-2023 End: 09-28-2023 Patient encounter procedure Chyna Sirisha PEREZVEGETABLE PREPARER Work Phone: [facility] [place] Comment on above: Preop examination (P rimary Dx); Extensor tendon rupture of hand, right, subsequent encounter; Bilateral lower extremity edema; Elevated antinuclear antibody (NOEMY) level; Elevated rheumatoid factor Start: 09-28-2023 End: 09-28-2023 Preprocedural examination done Chyna Sirisha PEREZVEGETABLE PREPARER Work Phone: [facility] Work Phone: Start: 09-24-2023 End: 09-24-2023 Subsequent hospital visit by physician [facility] Comment on above: History of total lucy ulder replacement, right; S/P reverse total shoulder arthroplasty, right Start: 09-24-2023 End: 09-24-2023 Postop follow up visit related to original px Indira Levy MD Work Phone: [facility] Comment on above: History of total lucy ulder replacement, right; S/P reverse total shoulder arthroplasty, right Start: 09-24-2023 End: 09-24-2023 ambulatory INDIRA [facility] Start: 09-21-2023 End: 09-21-2023 Office outpatient visit 25 minutes Maryam Lugo MD Work Phone: [facility] Comment on above: Extensor tendon rupt ure of hand, right, initial encounter (Primary Dx) Start: 09-21-2023 End: 09-21-2023 ambulatory MARYAM LEVY [facility] Ambulatory Start: 09-09-2023 End: 09-10-2023 [facility] Start: 09-09-2023 End: 09-09-2023 ambulatory MARYAM LEVY [facility] Start: 09-09-2023 End: 09-09-2023 Subsequent hospital visit by physician Chance Cintron [facility] Comment on above: Polyarthralgia Start: 09-03-2023 End: 09-03-2023 Office outpatient visit 25 minutes Maryam Lugo MD Work Phone: [facility] Comment on above: Extensor tendon rupt ure of hand, right, initial encounter (Primary Dx); Wrist arthritis; Polyarthralgia Start: 09-03-2023 End: 09-03-2023 Refill Candice Kiran MD Work Phone: [facility] Comment on above: Medication Refill Wrist arthritis Start: 08-31-2023 End: 08-31-2023 Subsequent hospital visit by physician Chance Douglassy100 X-[facility] Comment on above: S/P reverse total sh oulder arthroplasty, right Start: 08-31-2023 End: 08-31-2023 ambulatory INDIRA DICKINSONTROY [facility] Start: 08-27-2023 End: 08-27-2023 Subsequent hospital visit by physician [facility] Comment on above: History of total lucy ulder replacement, right Start: 08-27-2023 End: 08-27-2023 Postop follow up visit related to original px Indira Levy MD Work Phone: [facility] Comment on above: Right arm fracture, closed, initial encounter (Primary Dx); History of total shoulder replacement, right; S/P reverse total shoulder arthroplasty, right Start: 08-10-2023 End: 08-11-2023 Subsequent hospital visit by physician Indira Levy MD Work Phone: [facility] 6 Comment on above: Unspecified fracture of upper end of unspecified humerus, initial encounter for closed fracture (Primary Dx); S/P reverse total shoulder arthroplasty, right Start: 08-09-2023 End: 08-09-2023 Postop follow up visit related to original px Indira Levy MD Work Phone: [facility] Comment on above: Closed 3-part fractu re of proximal humerus with routine healing, right (Primary Dx) Start: 08-09-2023 Telephone encounter Trace west DO Work Phone: [facility] [place] Comment on above: Clearance form incom plete Start: 07-29-2023 End: 07-29-2023 Subsequent hospital visit by physician Berkley Antoine 2 [facility] Comment on above: Closed 3-part fractu re of proximal humerus with routine healing, right Start: 07-16-2023 Telephone encounter Trace west DO Work Phone: [facility] [place] Comment on above: medical clearance fo rm Start: 07-13-2023 Encounter for other preprocedural examination CHYNA GRIMM [facility] Start: 07-13-2023 End: 07-13-2023 ambulatory CHYNAJEREMY GRIMM Facility:[facility] Start: 07-13-2023 End: 07-13-2023 Patient encounter procedure Chyna Grimm APRN.VEGETABLE PREPARER Work Phone: [facility] [place] Comment on above: Preop examination (P rimary Dx); Essential hypertension; Gastroesophageal reflux disease without esophagitis; Obesity, Class III, BMI 40-49.9 (morbid obesity) ([facility]) Start: 07-13-2023 End: 07-13-2023 Preprocedural examination done Chyna Grimm APRN.VEGETABLE PREPARER Work Phone: [facility] Work Phone: Start: 07-12-2023 End: 07-12-2023 Office outpatient new 60 minutes Indira Levy MD Work Phone: [facility] Comment on above: Closed 3-part fractu re of proximal humerus with routine healing, right Start: 07-02-2023 End: 07-02-2023 Office outpatient visit 15 minutes Sam Gracia MD Work Phone: [facility] Comment on above: Closed 3-part fractu re of proximal humerus with routine healing, right Start: 07-02-2023 End: 07-02-2023 Subsequent hospital visit by physician Chance Douglassy100 X-Ray [facility] Comment on above: Closed 3-part fractu re of proximal humerus with routine healing, right Start: 07-02-2023 End: 07-02-2023 ambulatory [facility] Ambulatory Start: 06-18-2023 End: 06-18-2023 Subsequent hospital visit by physician Chance Dangelo X-Ray [facility] Comment on above: Closed 3-part fractu re of proximal humerus with routine healing, right Start: 06-18-2023 End: 06-18-2023 Office outpatient visit 25 minutes Sam Gracia MD Work Phone: [facility] Comment on above: Closed 3-part fractu re of proximal humerus with routine healing, right Start: 06-18-2023 End: 06-18-2023 ambulatory [facility] Ambulatory Start: 06-10-2023 End: 06-10-2023 Subsequent hospital visit by physician Chance [email or web address] X-Ray [facility] Comment on above: Right arm fracture, closed, initial encounter Start: 06-10-2023 End: 06-10-2023 Office outpatient new 45 minutes Sam Gracia MD Work Phone: [facility] Comment on above: Closed 3-part fractu re of proximal humerus with routine healing, right (Primary Dx); Right arm fracture, closed, initial encounter Start: 06-10-2023 End: 06-10-2023 ambulatory [facility] Ambulatory Start: 06-08-2023 Telephone encounter Trace west DO Work Phone: [facility] [place] Comment on above: Arm Injury Start: 06-07-2023 End: 06-07-2023 Emergency department patient visit TRACE MENDIOLA [facility] Start: 03-29-2023 End: 03-29-2023 Subsequent hospital visit by physician Amira Mammo [facility] Comment on above: Screening mammogram for breast cancer [Z12.31] Start: 03-22-2023 ambulatory Trace rodriguez DO Work Phone: [facility] [place] Comment on above: mammogram Start: 03-22-2023 Telephone encounter Trace west DO Work Phone: [facility] [place] Comment on above: Patient Question Start: 03-16-2023 End: 03-16-2023 Patient encounter procedure Monica Porter MD Work Phone: [facility] Comment on above: Bilateral impacted c erumen (Primary Dx) Start: 12-01-2022 End: 12-01-2022 Office outpatient visit 15 minutes Estella Soto CNP Work Phone: [facility] Comment on above: Coronary artery dise ase involving [place] coronary artery of [place] heart without angina pectoris (Primary Dx); LV dysfunction with recoverability; Primary hypertension; Mixed hyperlipidemia Start: 09-03-2022 Refill Candice smiley MD Work Phone: [facility] Comment on above: Medication Refill Start: 09-01-2022 ambulatory Trace rodriguez DO Work Phone: [facility] [place] Comment on above: pantoprazole renewal Start: 08-21-2022 End: 08-21-2022 Patient encounter procedure Ne Angelo OD Work Phone: Ophthalmology Comment on above: Bilateral posterior capsular opacification (Primary Dx); Pseudophakia; Vitreous floaters of both eyes; Hemangioma of eyelid; Dry eye syndrome of both eyes Start: 08-10-2022 ambulatory Jimmie Kevin MD Work Phone: [facility] Start: 08-10-2022 Patient encounter procedure Jimmie Kevin MD Work Phone: Ophthalmology Comment on above: appointment question Start: 07-08-2022 End: 07-08-2022 Patient encounter procedure Jimmie Kevin MD Work Phone: Ophthalmology Comment on above: Vitreous floaters of both eyes (Primary Dx); Bilateral posterior capsular opacification; Pseudophakia; Hemangioma of eyelid; Dry eye syndrome of both eyes Start: 03-12-2022 End: 03-12-2022 Subsequent hospital visit by physician Screen Mammo [facility] Comment on above: Visit for screening mammogram [Z12.31] Start: 03-09-2022 Orders Only Trace rodriguez DO Work Phone: [facility] Comment on above: Visit for screening mammogram (Primary Dx) Start: 02-25-2022 Telephone encounter Trace Socorro west DO Work Phone: [facility] [place] Comment on above: Results Start: 02-17-2022 Patient encounter procedure Trace Mendiola DO Work Phone: [facility] Work Phone: Start: 02-16-2022 End: 02-16-2022 Patient encounter procedure Trace Mendiola DO Work Phone: [facility] [place] Comment on above: Medicare annual [facility] visit, subsequent (Primary Dx); Essential hypertension; Gastroesophageal reflux disease without esophagitis; Primary osteoarthritis of both knees; Dyslipidemia; Fatigue, unspecified type; Vitamin D deficiency Start: 11-24-2021 End: 11-24-2021 Office outpatient visit 10 minutes Peyton Kenyon CNP Work Phone: [facility] Comment on above: Coronary artery dise ase involving [place] coronary artery of [place] heart without angina pectoris (Primary Dx); LV dysfunction with recoverability Start: 10-01-2021 Refill Janina Mckeon RN [facility] Comment on above: Medication Refill Start: 09-25-2021 Refill Candice smiley MD Work Phone: [facility] Comment on above: Medication Refill Start: 08-08-2020 End: 08-08-2020 Refill Janina Mckeon [facility] Comment on above: Medication Refill Start: 08-06-2020 End: 08-06-2020 Refill Jordyn Almaraz Work Phone: [facility] Comment on above: Medication Refill Start: 05-21-2020 End: 05-21-2020 Phys/qhp telephone evaluation 5-10 min Candice Kiran Work Phone: [facility] Comment on above: Coronary artery dise ase involving [place] coronary artery of [place] heart without angina pectoris (Primary Dx); Mixed hyperlipidemia; LV dysfunction with recoverability; Essential hypertension Start: 05-17-2020 End: 05-17-2020 Orders Only Charity Caal Work Phone: [facility] Start: 05-23-2019 End: 05-27-2019 Patient encounter procedure [facility] Start: 05-17-2019 End: 05-17-2019 Office outpatient visit 25 minutes [facility] Work Phone: [facility] Comment on above: Mixed hyperlipidemia ; Essential hypertension with goal blood pressure less than 130/80; Coronary artery disease involving [place] coronary artery of [place] heart without angina pectoris; Essential hypertension; LV dysfunction with recoverability Start: 05-11-2019 Refill Candice smiley MD Work Phone: [facility] Comment on above: Medication Refill Start: 09-07-2018 End: 09-07-2018 [facility] [address] [facility] Work Phone: [facility] Comment on above: Coronary artery dise ase involving [place] coronary artery of [place] heart without angina pectoris; Essential hypertension; LV dysfunction with recoverability; Mixed hyperlipidemia Start: 02-01-2018 Refill Sam purvis DO Work Phone: [facility] Comment on above: Medication Refill Start: 05-18-2017 Office/outpatient vi sit, est, level 3 Sam Castano Work Phone: [facility] Procedures Date Procedure Procedure Detail Performing Clinician Start: 08-14-2024 Radex wrist complete minimum 3 views Maryam Lugo MD Work Phone: Start: 08-07-2024 Radex shoulder compl ete minimum 2 views Indira Levy MD Work Phone: Start: 01-05-2024 Radex shoulder compl ete minimum 2 views Indira Levy MD Work Phone: Start: 01-03-2024 Radex wrist complete minimum 3 views Maryam Lugo MD Work Phone: Start: 10-07-2023 XR tomography Unspec ified body region Maryam Lugo MD Work Phone: Start: 09-24-2023 Radex shoulder compl ete minimum 2 views Indira Levy MD Work Phone: Start: 09-09-2023 MR WRIST RIGHT WO IV CONTRAST TRACE MENDIOLA Start: 09-09-2023 NOEMY WITHOUT REFLEX JORGE TRACE MENDIOLA Start: 09-09-2023 ANTI-DNA ANTIBODY, DOUBLE-STRANDED TRACE MENDIOLA Start: 09-09-2023 C-reactive protein JORD AN MENDIOLA Start: 09-09-2023 CITRULLINE ANTIBODY, IGG TRACE MENDIOLA Start: 09-09-2023 Comprehensive metabo lic 2000 panel - Serum or Plasma TRACE MENDIOLA Start: 09-09-2023 RHEUMATOID FACTOR JORDA N MENDIOLA Start: 09-09-2023 SEDIMENTATION RATE, AUTOMATED TRACE MENDIOLA Start: 09-09-2023 Urate [Mass/volume] in Serum or Plasma TRACE MENDIOLA Start: 09-09-2023 URINALYSIS WITH REFL EX MICROSCOPIC TRACE MENDIOLA Start: 09-03-2023 Radex wrist complete minimum 3 views Maryam Lugo MD Work Phone: Start: 08-31-2023 XR SHOULDER RIGHT 2+ VIEWS TRACE MENDIOLA Start: 08-27-2023 Radex shoulder compl ete minimum 2 views Indira Levy MD Work Phone: Start: 08-11-2023 Basic metabolic pane l calcium total Indira Levy MD Work Phone: Start: 08-10-2023 Radex shoulder compl ete minimum 2 views Indira Levy MD Work Phone: Start: 08-10-2023 PULSE OXIMETRY, CONTINUOUS Kvng Juarez MD Work Phone: Start: 07-29-2023 Ct upper extremity w /o contrast material Indira Levy MD Work Phone: Start: 07-02-2023 XR SHOULDER RIGHT 2+ VIEWS TRACE MENDIOLA Start: 07-02-2023 Radex shoulder compl ete minimum 2 views Sam Gracia MD Work Phone: Start: 07-02-2023 POINT OF CARE ULTRAS OUND NO CHARGE SAM GRACIA Start: 06-18-2023 XR HUMERUS RIGHT TRACE MENDIOLA Start: 06-18-2023 XR SHOULDER RIGHT 2+ VIEWS TRACE MENDIOLA Start: 06-18-2023 End: 06-18-2023 Radex shoulder complete minimum 2 views Sam Gracia MD Work Phone: Start: 06-18-2023 POINT OF CARE ULTRAS OUND NO CHARGE SAM GRACIA Start: 06-10-2023 XR HUMERUS RIGHT TRACE MENDIOLA Start: 06-10-2023 AMB REFERRAL TO ORTH OPAEDIC SURGERY SAM GRACIA Start: 06-10-2023 Radex humerus minimu m 2 views Sam Gracia MD Work Phone: Start: 06-10-2023 POINT OF CARE ULTRAS OUND NO CHARGE SAM GRACIA Start: 06-07-2023 CT HEAD WO IV CONTRAST TRACE MENDIOLA Start: 06-07-2023 XR HUMERUS RIGHT TRACE MENDIOLA Start: 06-07-2023 XR KNEE LEFT 4+ VIEWS J CARLA MENDIOLA Start: 06-07-2023 XR SHOULDER RIGHT 2+ VIEWS TRACE MENDIOLA Start: 04-20-2023 Mammography Candice hoyos MD Work Phone: Start: 12-01-2022 Ecg routine ecg w/le ast 12 lds w/i&r Estella Soto VEGETABLE PREPARER Work Phone: Start: 03-12-2022 End: 03-12-2022 Mammography Trace Mendiola DO Work Phone: Start: 11-24-2021 Ecg routine ecg w/le ast 12 lds w/i&r Peyton Kenyon VEGETABLE PREPARER Work Phone: Start: 12-09-2018 Mammography Jordyn Almaraz Plan of Treatment Date Care Activity Detail Author Start: 09-08-2026 Diabetes Screening Diabetes Screenin g [facility] Start: 07-12-2026 Diabetes Screening Diabetes Screenin g [facility] Start: 08-29-2025 DTaP/Tdap/Td Vaccine s (2 - Td or Tdap) DTaP/Tdap/Td Vaccines (2 - Td or Tdap) [facility] Start: 08-29-2025 Tetanus vaccination [facility] Start: 08-29-2025 Urine microalbumin profile [facility] Start: 08-13-2025 End: 08-13-2025 Patient encounter procedure 08/13/2025 1:45 PM EDT Office Visit [facility] [address] [address] Indira Levy MD [address] [facility], [address] [place] [address] [phone] [facility] Start: 02-16-2025 DIABETES SCREEN DIABETES SCREEN [facility] Start: 02-16-2025 Diabetes Screening Diabetes Screenin g [facility] Start: 01-22-2025 End: 01-22-2025 Patient encounter procedure 01/22/2025 10:00 AM EDT Office Visit [facility] [address] [place] [address] Monica Porter MD [address] [place] [address] [address] [place] [address] [facility] Start: 11-29-2024 End: 11-29-2024 Patient encounter procedure 11/29/2024 10:20 AM EDT Office Visit [facility] [place] [address] [place], [place] [phone] Trace Mendiola, [address] [place], [place] [phone] 6 month f/up [facility] [place] Comment on above: 6 month f/up Start: 09-29-2024 End: 09-29-2024 Patient encounter procedure 09/29/2024 9:20 AM EDT Office Visit [facility] [address], 3rd [place] [phone] Candice Kiran MD [address] [place] [address] [facility] Start: 09-27-2024 Annual PCP Team Sample Builder marybeth Disease Visit Annual PCP Team Chronic Disease Visit [facility] Start: 08-07-2024 End: 08-07-2024 Patient encounter procedure 08/07/2024 2:15 PM EDT Office Visit [facility] [address] [address] Indira Levy MD [address] [facility], [address] [place] [address] [phone] [facility] Start: 08-01-2024 COVID-19 Vaccine ( season) COVID-19 Vaccine ( season) [facility] Start: 08-01-2024 COVID-19 Vaccine (6 - Pfizer risk season) COVID-19 Vaccine (6 - Pfizer risk season) [facility] Start: 07-12-2024 Annual PCP Team Sample Builder marybeth Disease Visit Annual PCP Team Chronic Disease Visit [facility] Start: 05-31-2024 End: 05-31-2024 Patient encounter procedure 05/31/2024 1:00 PM EST Office Visit [facility] [place] [address] [place], [place] [id number] Trace Mendiola DO [address] [place], [place] [phone] medicare wellness, hcc gap closure, bp, pt requesting shingles vaccine if possible [facility] [place] Comment on above: medicare wellness, h cc gap closure, bp, pt requesting shingles vaccine if possible Start: 04-20-2024 Screening for malign ant neoplasm of breast Mammogram [facility] Start: 03-28-2024 Covid-19 Vaccine ( season) Covid-19 Vaccine () [facility] Start: 02-18-2024 End: 02-18-2024 Patient encounter procedure Rheumatology Comment on above: Elevated antinuclear antibody (NOEMY) level [R76.8]; Elevated rheumatoid factor [R76.8] Start: 02-15-2024 End: 02-15-2024 Patient encounter procedure 02/15/2024 8:20 AM EDT Office Visit [facility] [address], 3rd [place] [address] Candice Kiran MD [facility] [place] [address] [facility] Start: 01-19-2024 End: 01-19-2024 Patient encounter procedure 01/19/2024 2:00 PM EDT Office Visit [facility] [address] [phone] Indira Levy MD [address] [facility], [address] [place] [address] [phone] [facility] Start: 01-18-2024 End: 01-18-2024 ambulatory 01/18/2024 12:45 PM EDT Treatment Anastacio Coles [address] [place] [address] Rodolfo Cassidy, PT [address] [facility] [place] [address] Anastacio Coles Start: 01-17-2024 End: 01-17-2024 Patient encounter procedure 01/17/2024 9:00 AM EDT Office Visit [facility] [address] [place] [address] Monica Porter MD [facility] [address] [place] [address] [facility] Start: 01-06-2024 End: 01-06-2024 ambulatory 01/06/2024 2:45 PM EDT Treatment [address] [place] [address] Anabelle Orr, RUBBER ATTACHER [address] [place] [address] [facility] Start: 01-05-2024 End: 01-05-2024 Patient encounter procedure 01/05/2024 2:15 PM EDT Office Visit [facility] [address] [phone] Indira Levy MD [address] [facility], [address] [place] [address] [phone] [facility] Start: 01-04-2024 End: 01-04-2024 ambulatory 01/04/2024 2:45 PM EDT Treatment [place] [address] [place] [address] Anabelle Orr, RUBBER ATTACHER [address] [place] [address] [facility] Start: 12-26-2023 COVID-19 Vaccine ( season) COVID-19 Vaccine ( season) [facility] Start: 12-26-2023 Covid-19 Vaccine () Covid-19 Vaccine ( season) [facility] Start: 12-26-2023 Influenza vaccination Influenza Vacc ine (#1) [facility] Start: 12-13-2023 End: 12-13-2023 ambulatory 12/13/2023 12:45 PM EDT Treatment [address] [phone] Rodolfo Cassidy, PT [address] [place] [phone] [facility] [facility] Start: 12-06-2023 End: 12-06-2023 ambulatory 12/06/2023 1:15 PM EDT Treatment [address] [phone] Charity La, RUBBER ATTACHER [address] [phone] [facility] Start: 12-03-2023 End: 12-03-2023 ambulatory 12/03/2023 10:45 AM EDT Treatment [address] [address] Anabelle Orr, RUBBER ATTACHER [address] [place] [address] [facility] Start: 11-29-2023 End: 11-29-2023 ambulatory 11/29/2023 2:00 PM EDT Treatment [address] [address] Charity La, RUBBER ATTACHER [address] [phone] [facility] Start: 11-26-2023 End: 11-26-2023 ambulatory 11/26/2023 10:45 AM EDT Treatment [address] [address] Mackenzie Pelaez, RUBBER ATTACHER [address] [facility] [place] [address] [facility] Start: 11-24-2023 End: 11-24-2023 ambulatory 11/24/2023 1:15 PM EDT Treatment [address] [address] Rodolfo Cassidy, PT [address] [facility] [place] [address] [facility] Start: 11-19-2023 End: 11-19-2023 ambulatory 11/19/2023 2:45 PM EDT Treatment [address] [address] Mackenzie Pelaez, RUBBER ATTACHER [address] [facility] [place] [phone] [facility] Start: 11-16-2023 End: 11-16-2023 Patient encounter procedure 11/16/2023 2:45 PM EDT Office Visit [facility] [address] [place] [address] Maryam Abdullahi MD [address] [facility], [address] [place] [address] [facility] Start: 11-15-2023 End: 11-15-2023 ambulatory 11/15/2023 1:45 PM EDT Evaluation [address] [phone] [place] [address] [facility] Department of Rehabilitation Services [place], [place] [phone] [facility] Start: 11-12-2023 End: 11-12-2023 Patient encounter procedure 11/12/2023 2:45 PM EDT Office Visit [facility] [address] [place] [phone] Indira Levy MD [address] [facility], [address] [place] [address], [place] [phone] [facility] Start: 11-04-2023 End: 11-04-2023 ambulatory 11/04/2023 10:45 AM EDT Treatment [facility] [address] [place] [address] Rodolfo Cassidy, PT [address] [place] [address] [facility] Start: 11-01-2023 End: 11-01-2023 ambulatory 11/01/2023 10:45 AM EDT Treatment [facility] [address] [place] [address] Mackenzie Pelaez, RUBBER ATTACHER [address] [place] [address] [facility] Start: 10-27-2023 End: 10-27-2023 ambulatory 10/27/2023 10:45 AM EDT Treatment [facility] [address] [place] [address] Mackenzie Pelaez, RUBBER ATTACHER [address] [place] [address] [facility] Start: 10-25-2023 End: 10-25-2023 ambulatory 10/25/2023 10:45 AM EDT Treatment [facility] [address] Charity La, RUBBER ATTACHER [address] [place] [address] [facility] Start: 10-20-2023 End: 10-20-2023 ambulatory 10/20/2023 10:45 AM EDT Treatment [address] [phone] Anabelle Orr, RUBBER ATTACHER [address] [phone] [facility] Start: 10-19-2023 End: 10-19-2023 Patient encounter procedure 10/19/2023 2:45 PM EDT Office Visit [facility] [address] [place] [address] Maryam Abdullahi MD [address] [facility], [address] [place] [address] [facility] Start: 10-18-2023 End: 10-18-2023 ambulatory 10/18/2023 10:45 AM EDT Treatment [address] [phone] Charity La, RUBBER ATTACHER [address] [phone] [facility] Start: 10-15-2023 End: 10-15-2023 ambulatory 10/15/2023 11:30 AM EDT Treatment [address] [phone] Makcenzie Pelaez, RUBBER ATTACHER [address] [place] [address] [facility] Start: 10-11-2023 End: 10-11-2023 Patient encounter procedure 10/11/2023 2:45 PM EDT Office Visit [facility] [address] [place] [facility] [place] [phone] Indira Levy MD [address] [facility], [address] [place] [address] [phone] [facility] Start: 10-07-2023 Subsequent hospital visit by physician 10/07/2023 Hospital Encounter [facility] [place] [address] [place] [phone] Maryam Abdullahi MD [address] [facility], [address] [place] [address], [place] [phone] [facility] [place] Start: 10-07-2023 End: 10-07-2023 Excision distal ulna partial/complete Ulna Distal Ward Procedure Spontaneous rupture of extensor tendons, right hand 10/07/2023 10:42 AM EDT [facility] [place] Start: 10-05-2023 End: 01-04-2024 Renal function 2000 panel - Serum or Plasma RENAL FUNCTION PANEL Lab Routine Bilateral lower extremity edema Essential hypertension Expected: 10/05/2023, Expires: 01/04/2024 [facility] Work Phone: Comment on above: Expected: 10/05/2023 , Expires: 01/04/2024 Start: 09-24-2023 End: 09-24-2023 Patient encounter procedure 09/24/2023 3:00 PM EDT Office Visit [facility] [address] [place] [facility] [place] [phone] Indira Levy MD [address] [facility], [address] [place] [address], [place] [address] [facility] Start: 09-03-2023 End: 09-03-2023 Patient encounter procedure 09/03/2023 3:00 PM EDT Office Visit [facility] [address] [place] [address] Maryam Abdullahi MD [address] [facility], [address] [facility] [place] [address] [facility] Start: 09-03-2023 End: 09-02-2024 C reactive protein [Mass/volume] in Serum or Plasma C-Reactive Protein Lab Routine Polyarthralgia Expected: 09/03/2023 (Approximate), Expires: 09/02/2024 [facility] Work Phone: Comment on above: Expected: 09/03/2023 (Approximate), Expires: 09/02/2024 Start: 09-03-2023 End: 09-02-2024 Comprehensive metabolic 2000 panel - Serum or Plasma Comprehensive Metabolic Panel Lab Routine Polyarthralgia Expected: 09/03/2023 (Approximate), Expires: 09/02/2024 [facility] Service Area Work Phone: Comment on above: Expected: 09/03/2023 (Approximate), Expires: 09/02/2024 Start: 09-03-2023 End: 09-02-2024 Cyclic citrullinated peptide IgG Ab [Units/volume] in Serum or Plasma Citrulline Antibody, IgG Lab Routine Polyarthralgia Expected: 09/03/2023 (Approximate), Expires: 09/02/2024 [facility] Work Phone: Comment on above: Expected: 09/03/2023 (Approximate), Expires: 09/02/2024 Start: 09-03-2023 End: 09-02-2024 DNA double strand Ab [Units/volume] in Serum Anti-DNA Antibody, Double-Stranded Lab Routine Polyarthralgia Expected: 09/03/2023 (Approximate), Expires: 09/02/2024 [facility] Work Phone: Comment on above: Expected: 09/03/2023 (Approximate), Expires: 09/02/2024 Start: 09-03-2023 End: 09-02-2024 Erythrocyte sedimentation rate Sedimentation Rate Lab Routine Polyarthralgia Expected: 09/03/2023 (Approximate), Expires: 09/02/2024 [facility] Work Phone: Comment on above: Expected: 09/03/2023 (Approximate), Expires: 09/02/2024 Start: 09-03-2023 End: 09-02-2024 MR Wrist - right WO contrast MR wrist right wo IV contrast Imaging Routine Polyarthralgia Expected: 09/03/2023, Expires: 09/02/2024 [facility] Work Phone: Comment on above: Expected: 09/03/2023 , Expires: 09/02/2024 Start: 09-03-2023 End: 09-02-2024 Nuclear Ab [Presence] in Serum by Hep2 substrate NOEMY without Reflex JORGE Lab Routine Polyarthralgia Expected: 09/03/2023 (Approximate), Expires: 09/02/2024 [facility] Work Phone: Comment on above: Expected: 09/03/2023 (Approximate), Expires: 09/02/2024 Start: 09-03-2023 End: 09-02-2024 Rheumatoid factor [Units/volume] in Serum by Nephelometry Rheumatoid Factor Lab Routine Polyarthralgia Expected: 09/03/2023 (Approximate), Expires: 09/02/2024 [facility] Work Phone: Comment on above: Expected: 09/03/2023 (Approximate), Expires: 09/02/2024 Start: 09-03-2023 End: 09-02-2024 Urate [Mass/volume] in Serum or Plasma Uric Acid Lab Routine Polyarthralgia Expected: 09/03/2023 (Approximate), Expires: 09/02/2024 [facility] Work Phone: Comment on above: Expected: 09/03/2023 (Approximate), Expires: 09/02/2024 Start: 09-03-2023 End: 09-02-2024 Urinalysis complete panel - Urine Urinalysis with Reflex Microscopic Lab Routine Polyarthralgia Expected: 09/03/2023 (Approximate), Expires: 09/02/2024 [facility] Work Phone: Comment on above: Expected: 09/03/2023 (Approximate), Expires: 09/02/2024 Start: 08-30-2023 End: 08-29-2024 XR Shoulder - right 2 Views XR shoulder right 2+ views Imaging Routine S/P reverse total shoulder arthroplasty, right Expected: 08/30/2023, Expires: 08/29/2024 [facility] Service Area Work Phone: Comment on above: Expected: 08/30/2023 , Expires: 08/29/2024 Start: 08-27-2023 End: 08-27-2023 Patient encounter procedure 08/27/2023 2:15 PM EDT Office Visit [facility] [address] [place] [phone] Indira Levy MD [address] [facility], [address] [place] [phone] [facility] Start: 08-10-2023 Documentation procedure [facility] Start: 08-10-2023 Subsequent hospital visit by physician [facility] [place] Comment on above: Unspecified fracture of upper end of unspecified humerus, initial encounter for closed fracture (Primary Dx) Start: 08-10-2023 End: 08-10-2023 Admission to same day surgery center 08/10/2023 12:10 PM EDT - 08/10/2023 1:50 PM EDT Surgery [facility] [place] [address] [place] [phone] Indira Levy MD [address] [facility], [address] [place] [address] [phone] TOTAL RIGHT ARTHROPLASTY SHOULDER REVERSE POSSIBLE BICEPS TENODESIS [18704 (CPT )] [facility] [place] Comment on above: TOTAL RIGHT ARTHROPL ASTY SHOULDER REVERSE POSSIBLE BICEPS TENODESIS [19176 (CPT )] Start: 08-10-2023 End: 08-10-2023 Arthroplasty glenohumeral joint total shoulder Arthroplasty Reverse Shoulder Unspecified fracture of upper end of unspecified humerus, initial encounter for closed fracture 08/10/2023 12:10 PM EDT [facility] [place] Start: 08-10-2023 End: 08-10-2023 Arthroplasty glenohumeral joint total shoulder Arthroplasty Reverse Shoulder Unspecified fracture of upper end of unspecified humerus, initial encounter for closed fracture 08/10/2023 10:30 AM EDT [facility] [place] Start: 08-09-2023 End: 08-09-2023 Patient encounter procedure 08/09/2023 2:15 PM EDT Office Visit [facility] [address] [place] [phone] Indira Levy MD [address] [facility], [address] [place] [address] [facility] Start: 07-29-2023 End: 07-29-2023 Admission to establishment 07/29/2023 10:00 AM EDT Pre-Admission Testing [address] [phone] [facility] Start: 07-12-2023 End: 07-12-2023 Patient encounter procedure 07/12/2023 1:30 PM EDT Office Visit [facility] [address] [place] [phone] Indira Levy MD [address] [facility], [address] [place] [address] [facility] Start: 07-02-2023 End: 07-02-2023 Patient encounter procedure 07/02/2023 10:00 AM EST Office Visit [facility] [address] [place] [phone] Sam Gracia MD [address] [place] [address] [facility] Start: 07-02-2023 Subsequent hospital visit by physician 07/02/2023 9:46 AM EST Hospital Encounter [facility] [address] [place] [address] Closed 3-part fracture of proximal humerus with routine healing, right [facility] Comment on above: Closed 3-part fractu re of proximal humerus with routine healing, right Start: 06-28-2023 End: 06-27-2024 XR Shoulder - right 2 Views XR shoulder right 2+ views Imaging Routine Closed 3-part fracture of proximal humerus with routine healing, right Expected: 06/28/2023, Expires: 06/27/2024 [facility] Service Area Work Phone: Comment on above: Expected: 06/28/2023 , Expires: 06/27/2024 Start: 06-18-2023 End: 06-18-2024 XR Humerus - right Views [facility] Work Phone: Comment on above: Expected: 06/18/2023 , Expires: 06/18/2024 Once for 1 Occurrenc es starting 06/18/2023 until 06/18/2023 Start: 06-18-2023 End: 06-18-2024 XR Shoulder - right 2 Views [facility] Service Area Work Phone: Comment on above: Expected: 06/18/2023 , Expires: 06/18/2024 Once for 1 Occurrenc es starting 06/18/2023 until 06/18/2023 Start: 06-18-2023 Subsequent hospital visit by physician 06/18/2023 11:30 AM EST Hospital Encounter [facility] [address] [place] [phone] Closed 3-part fracture of proximal humerus with routine healing, right [facility] Comment on above: Closed 3-part fractu re of proximal humerus with routine healing, right Start: 06-18-2023 End: 06-18-2023 Patient encounter procedure 06/18/2023 11:30 AM EST Office Visit [facility] [address] [place] [phone] Sam Gracia MD [address] [place] [address] [facility] Start: 06-12-2023 COVID-19 Vaccine () COVID-19 Vaccine () [facility] Start: 06-09-2023 End: 06-09-2024 XR Humerus - right Views XR humerus right Imaging Routine Right arm fracture, closed, initial encounter Expected: 06/09/2023, Expires: 06/09/2024 [facility] Service Area Work Phone: Comment on above: Expected: 06/09/2023 , Expires: 06/09/2024 Start: 04-26-2023 Behavioral Health Screening Behavioral Health Screening [facility] Start: 04-26-2023 Depression Assessment Depression Ass essment [facility] Start: 03-16-2023 End: 03-16-2023 Patient encounter procedure 03/16/2023 10:00 AM EST Office Visit [facility] [address] [place] [phone] Monica Porter MD [address] [place] [address] [facility] Start: 03-12-2023 Screening for malign ant neoplasm of breast Mammogram [facility] Start: 02-16-2023 ANNUAL PCP TEAM REAL ESTATE ACCOUNT EXECUTIVE MARYBETH DISEASE VISIT ANNUAL PCP TEAM CHRONIC DISEASE VISIT [facility] Start: 02-16-2023 BP CONTROLLED (<130/80) BP CONTROLLE D (<130/80) [facility] Start: 12-25-2022 Covid-19 Vaccine (4 - 2023-24 season) Covid-19 Vaccine ( season) [facility] Start: 12-25-2022 Influenza vaccination [facility] Start: 12-01-2022 End: 12-01-2022 Patient encounter procedure 12/01/2022 11:30 AM EDT Office Visit [facility] [address] [facility] [place] [phone] Ingris Albright, VEGETABLE PREPARER [address] [place] [address] [facility] Start: 09-14-2022 End: 09-14-2022 Patient encounter procedure [facility] Start: 04-26-2022 DEPRESSION ASSESSMENT DEPRESSION ASS ESSMENT [facility] Start: 02-16-2022 End: 04-18-2022 25-hydroxyvitamin D3 [Mass/volume] in Serum or Plasma [facility] Work Phone: Comment on above: Expected: 02/16/2022 , Expires: 04/18/2022 Start: 02-16-2022 End: 04-18-2022 Cobalamin (Vitamin B12) [Mass/volume] in Serum or Plasma [facility] Work Phone: Comment on above: Expected: 02/16/2022 , Expires: 04/18/2022 Start: 02-16-2022 End: 04-18-2022 Comprehensive metabolic 2000 panel - Serum or Plasma [facility] Work Phone: Comment on above: Expected: 02/16/2022 , Expires: 04/18/2022 Start: 02-16-2022 End: 04-18-2022 LIPID PANEL, NONFASTING [facility] Work Phone: Comment on above: Expected: 02/16/2022 , Expires: 04/18/2022 Start: 02-16-2022 End: 04-18-2022 Thyrotropin [Units/volume] in Serum or Plasma [facility] Work Phone: Comment on above: Expected: 02/16/2022 , Expires: 04/18/2022 Start: 12-25-2021 Influenza vaccination Sequenti al Influenza Vaccine (#1) [facility] Start: 11-24-2021 End: 11-24-2021 Patient encounter procedure 11/24/2021 Office Visit Cardiology Peyton Kenyon CNP [address] [place] [address] [facility] Start: 07-26-2021 COVID-19 Vaccine (4 - Booster for Pfizer series) COVID-19 Vaccine (4 - Booster for Pfizer series) [facility] Start: 05-22-2021 COVID-19 VACCINE (4 - Booster for Pfizer series) COVID-19 VACCINE (4 - Booster for Pfizer series) [facility] Start: 05-22-2021 COVID-19 Vaccine (4 - Pfizer series) COVID-19 Vaccine (4 - Pfizer series) [facility] Start: 12-11-2020 COVID-19 Vaccine (3 - Booster for Pfizer series) COVID-19 Vaccine (3 - Booster for Pfizer series) [facility] Start: 05-21-2020 End: 05-21-2020 Office Visit 05/21/2020 Office Visit Cardiology Candice Kiran MD [address] [place] [address] [phone] [facility] Start: 03-04-2020 DIABETES SCREEN DIABETES SCREEN [facility] Start: 02-22-2020 Pneumococcal Vaccine : Age 65+ (2 - PPSV23 or PCV20) Pneumococcal Vaccine: Age 65+ (2 - PPSV23 or PCV20) [facility] Start: 12-26-2019 Influenza vaccinatio n given Sequential Influenza Vaccine (#1) [facility] Start: 12-10-2019 Screening for malign ant neoplasm of breast Mammogram [facility] Start: 12-10-2019 Screening mammography Mammogram [facility] Start: 12-25-2018 Influenza vaccinatio n given [facility] Start: 2018 Respiratory Syncytia l Virus Immunization: Risk, 60-74 Risk, or 75+ (1 - 1-dose 75+ series) Respiratory Syncytial Virus Immunization: Risk, 60-74 Risk, or 75+ (1 - 1-dose 75+ series) [facility] Start: 2018 RSV High Risk: (Elde rly (60+) or Population) (1 - 1-dose 75+ series) RSV High Risk: (Elderly (60+) or Population) (1 - 1-dose 75+ series) [facility] Start: 2018 RSV Vaccine (1 - 1-d ose 75+ series) RSV Vaccine (1 - 1-dose 75+ series) [facility] Start: 12-25-2016 Influenza vaccination SEQUENTI AL INFLUENZA VACCINE (#1) [facility] Work Phone: Start: 08-22-2016 Pneumococcal vaccination PNEUM OCOCCAL VACCINE AGE 65+ (2 of 2 - PPSV23) [facility] Work Phone: Start: 01-03-2012 Administration of he rpes zoster vaccine [facility] Start: 01-03-2012 Shingrix Vaccine (1 of 2) Shingrix Vaccine (1 of 2) [facility] Start: 01-03-2012 SHINGRIX VACCINE (2 of 3) SHINGRIX VACCINE (2 of 3) [facility] Start: 01-03-2012 Zoster Vaccines (2 of 3) Zoste r Vaccines (2 of 3) [facility] Start: 2008 Fall risk assessment Falls Risk Asse ssment [facility] Start: 2008 Pneumococcal vaccination PNEUM OCOCCAL VACCINE AGE 65+ (1 of 2 - PCV13) [facility] Start: 2003 RSV patient s and/or patients aged 60+ years (1 - 1-dose 60+ series) RSV patients and/or patients aged 60+ years (1 - 1-dose 60+ series) [facility] Start: 2003 RSV Vaccine (1 - 1-d ose 60+ series) RSV Vaccine (1 - 1-dose 60+ series) [facility] Start: 1993 Administration of he rpes zoster vaccine Zoster Vaccines (1 of 2) [facility] Start: 1961 Anxiety Screening Anxiety Screening [facility] Start: 1961 Depression Screening Depression Scre ening [facility] Start: 1961 Hepatitis C antibody , confirmatory test Hepatitis C Screening [facility] Start: 1961 Hepatitis C screening Hepatitis C [facility] Start: 1961 HEPATITIS C SCREENING HEPATITIS C [facility] Start: 1959 COVID-19 Vaccine (1 of 2) COVID-19 Vaccine (1 of 2) [facility] Start: 1959 COVID-19 Vaccine (1) COVID-19 Vaccin e (1) [facility] Start: 1955 Adolescent depressio n screening assessment Depression Screening (PHQ9) [facility] Start: 1955 Depression screening using PHQ-9 (Patient Health Questionnaire 9) score [facility] Start: 1954 Screening for malign ant neoplasm of cervix Cervical Cancer Screening [facility] Start: 1946 History and physical examination, annual for health maintenance Wellness Visit [facility] Start: 1946 Medicare Wellness Visit Medicare Wel lness Visit [facility] Start: 1943 Screening colonoscopy COLONOSCOPY [facility] Work Phone: Start: 1943 End: 1943 Screening for osteoporosis [facility] Start: 1943 Tetanus vaccination TETANUS EVERY 10 YR [facility] Work Phone: Start: 1943 Fall risk assessment Falls Risk Asse ssment [facility] Start: 1943 Lipid panel Lipid Panel [facility] Start: 1943 Medicare Annual Well ness Visit Medicare Annual Wellness Visit (AWV) [facility] Start: 1943 Protein mass conc Mammogram [facility] Start: 1943 Screening for malign ant neoplasm of colon Colorectal Cancer Screening: Colonoscopy [facility] Start: 1943 Screening mammography Mammogram [facility] Arthroplasty glenohumeral joint total shoulder Arthroplasty Reverse Shoulder Unspecified fracture of upper end of unspecified humerus, initial encounter for closed fracture [facility] Work Phone: End: 05-17-2020 Comprehensive metabolic 2000 panel Comprehensive metabolic panel Lab Routine Essential hypertension with goal blood pressure less than 130/80 1 Occurrences starting 05/17/2019 until 05/17/2020 [facility] Comment on above: 1 Occurrences starti ng 05/17/2019 until 05/17/2020 Electrocardiogram, 12-lead PRN ACS symptoms Electrocardiogram, 12-lead PRN ACS symptoms ECG Routine As needed until discontinued starting 08/10/2023 [facility] Work Phone: Comment on above: As needed until disc ontinued starting 08/10/2023 Excision distal ulna partial/complete Ulna Distal Ward Procedure Spontaneous rupture of extensor tendons, right hand [facility] End: 08-10-2023 Incentive spirometry Instruct Incentive spirometry Instruct Respiratory Care Routine Once for 1 Occurrences starting 08/10/2023 until 08/10/2023 [facility] Work Phone: Comment on above: Once for 1 Occurrenc es starting 08/10/2023 until 08/10/2023 End: 05-17-2020 Lipid 1996 panel Lipid panel Lab Routine Mixed hyperlipidemia 1 Occurrences starting 05/17/2019 until 05/17/2020 [facility] Comment on above: 1 Occurrences starti ng 05/17/2019 until 05/17/2020 [facility] SCREENING [facility] SCREENING Ra diology Routine Screening mammogram for breast cancer 03/29/2023 10:17 AM EST [facility] Work Phone: End: 09-09-2023 MR Wrist - right WO contrast [facility] Work Phone: Comment on above: Once for 1 Occurrenc es starting 09/09/2023 until 09/09/2023 Screening mammograph y bi 2-view breast inc cad [facility] SCREENING Radiology Routine Visit for screening mammogram Ordered: 03/09/2022 [facility] Work Phone: Comment on above: Ordered: 03/09/2022 End: 06-10-2023 XR Humerus - right Views [facility] Service [facility] e[facility] Work Phone: Comment on above: Once for 1 Occurrenc es starting 06/10/2023 until 06/10/2023 End: 07-02-2023 XR Shoulder - right 2 Views [facility] Work Phone: Comment on above: Once for 1 Occurrenc es starting 07/02/2023 until 07/02/2023 End: 08-31-2023 XR Shoulder - right 2 Views [facility] Work Phone: Comment on above: Once for 1 Occurrenc es starting 08/31/2023 until 08/31/2023 End: 11-12-2023 XR Shoulder - right 2 Views [facility] Service Area Work Phone: Comment on above: Once for 1 Occurrenc es starting 11/12/2023 until 11/12/2023 [facility] Immunizations Immunization Date Immunization Notes Care Provider Angeli porter 02-09-2023 influenza virus vacc ine, unspecified formulation Chyna Grimm [employer]GETABLE [employer]PARER Work Phone: [facility] 02-16-2022 pneumococcal Conjuga te, unspecified formulation Trace Mendiola DO Work Phone: [facility] Work Phone: 02-16-2022 pneumococcal (PCV20) vaccine, 20 valent (PREVNAR 20) Trace Mendiola DO Work Phone: [facility] Work Phone: 01-29-2022 influenza virus vacc ine, unspecified formulation Screen Wstr [facility] 07-11-2020 COVID-19 original vaccine, age 12+ yr, monovalent (PFIZER-BIONTECH - PURPLE TOP) Trace Mendiola DO Work Phone: [facility] 06-20-2020 COVID-19 original vaccine, age 12+ yr, monovalent (PFIZER-BIONTECH - PURPLE TOP) Trace Mendiola DO Work Phone: [facility] Work Phone: 02-07-2017 influenza, high dose seasonal, preservative-free Trace Mendiola DO Work Phone: [facility] 08-30-2015 tetanus toxoid, redu edmundo diphtheria toxoid, and acellular pertussis vaccine, adsorbed Trace Mendiola DO Work Phone: [facility] Work Phone: 08-23-2015 pneumococcal conjuga te vaccine, 13 valent Trace Mendiola DO Work Phone: [facility] Work Phone: 02-19-2015 influenza, high dose seasonal, preservative-free Trace Mendiola DO Work Phone: [facility] Work Phone: 11-08-2011 zoster vaccine, live Trace Cadenarison DO Work Phone: [facility] Work Phone: 08-02-2011 pneumococcal polysaccharide vaccine, 23 valent Trace Cadenarison DO Work Phone: [facility] Work Phone: Payers Date Payer Category Payer Self-pay 2018 Medicare (Managed Care) [employer] G OLD CHOICE [id number] 2014 Medicare HU[employer]NA MANAGED M EDICARE HU[employer]NA MCR ADVANTAGE CHOICE PPO xxxxxxxxx 2014-Present xxxxxxxxx [id number] 2014 Medicare HUMANA MANAGED EDICARE HU[employer]NA MCR ADVANTAGE CHOICE PPO [id number] 2014-Present [id number] 2014 Medicare [id number] 2014 Medicare PPO HUMANA MCR ADVAN TAGE CHOICE PPO [id number] 2014 Medicare [id number] 2.16.840.1.403346.3.249. 13 1943 Unknown [id number] 2.16.840.1.243239.3.579. 2.903 1943 Unknown [id number] 2.16.840.1.808742.3.579. 2.1245 1943 Unknown [id number] 2.16.840.1.327923.3.579. 2.1243 1943 Unknown [id number] 2.16.840.1.512369.3.579. 2.1244 1943 Unknown [id number] 2.16.840.1.791699.3.579. 2.4 1943 Unknown [id number] 2.16.840.1.919663.3.579. 2.1244 1943 Unknown [id number] 2.16.840.1.219688.3.579. 2.1244 1943 Unknown [id number] 2.16.840.1.239396.3.579. 2.1244 1943 Unknown [id number] 2.16.840.1.495505.3.579. 2.1242 1943 Unknown [id number] 2.16.840.1.408074.3.579. 2.124 1943 Unknown [id number] 2.16.840.1.047964.3.579. 2.1242 1943 Unknown [id number] 2.16.840.1.537062.3.579. 2.1243 1943 Unknown [id number] 2.16.840.1.167003.3.579. 2.3 1943 Unknown [id number] 2.16.840.1.029614.3.579. 2.3 1943 Unknown [id number] 2.16.840.1.339452.3.579. 2.1242 1943 Unknown [id number] 2.16.840.1.418935.3.579. 2.1242 1943 Unknown [id number] 2.16.840.1.524012.3.579. 2.1242 1943 Unknown [id number] 2.16.840.1.409285.3.579. 2.1242 1943 Unknown [id number] 2.16.840.1.772318.3.579. 2.1242 1943 Unknown [id number] 2.16.840.1.673312.3.579. 2.1242 1943 Unknown [id number] 2.16.840.1.140630.3.579. 2.3 1943 Unknown [id number] 2.16.840.1.813020.3.579. 2.1242 1943 Unknown [id number] 2.16.840.1.581308.3.579. 2.1242 1943 Unknown [id number] 2.16.840.1.903963.3.579. 2.1242 1943 Unknown [id number] 2.16.840.1.705661.3.579. 2.3 1943 Unknown [id number] 2.16.840.1.405996.3.579. 2.1242 1943 Unknown [id number] 2.16.840.1.415401.3.579. 2.1243 1943 Unknown [id number] 2.16.840.1.260409.3.579. 2.1243 1943 Unknown [id number] 2.16.840.1.394855.3.579. 2.1243 1943 Unknown [id number] 2.16.840.1.902304.3.579. 2.124 1943 Unknown [id number] 2.16.840.1.675374.3.579. 2.1243 1943 Unknown [id number] 2.16.840.1.587770.3.579. 2.1242 1943 Unknown [id number] 2.16.840.1.784108.3.579. 2.124 1943 Unknown [id number] 2.16.840.1.017562.3.579. 2.124 1943 Unknown [id number] 2.16.840.1.020114.3.579. 2.1242 1943 Unknown [id number] 2.16.840.1.072039.3.579. 2.1242 1943 Unknown [id number] 2.16.840.1.834894.3.579. 2.1242 1943 Unknown [id number] 2.16.840.1.219020.3.579. 2.1243 1943 Unknown [id number] 2.16.840.1.898583.3.579. 2.124 1943 Unknown [id number] 2.16.840.1.533351.3.579. 2.1242 1943 Unknown [id number] 2.16.840.1.265789.3.579. 2.983 1943 Unknown [id number] 2.16.840.1.317222.3.579. 2.983 1943 Unknown [id number] 2.16.840.1.437149.3.579. 2.983 1943 Unknown [id number] 2.16.840.1.937532.3.579. 2.983 1943 Unknown [id number] 2.16.840.1.643264.3.579. 2.983 1943 Unknown [id number] 2.16.840.1.000609.3.579. 2.983 1943 Unknown [id number] 2.16.840.1.985215.3.579. 2.983 1943 Unknown [id number] 2.16.840.1.719972.3.579. 2.1246 1943 Unknown [id number] 2.16.840.1.975495.3.579. 2.1245 1943 Unknown [id number] 2.16.840.1.742856.3.579. 2.1246 1943 Unknown [id number] 2.16.840.1.380044.3.579. 2.6 1943 Unknown [id number] 2.16.840.1.085032.3.579. 2.6 1943 Unknown [id number] 2.16.840.1.008646.3.579. 2.1246 1943 Unknown [id number] 2.16.840.1.453786.3.579. 2.6 1943 Unknown [id number] 2.16.840.1.120966.3.579. 2.6 1943 Unknown [id number] 2.16.840.1.616544.3.579. 2.1246 1943 Unknown [id number] 2.16.840.1.925931.3.579. 2.1245 1943 Unknown [id number] 2.16.840.1.440878.3.579. 2.1246 1943 Unknown [id number] 2.16.840.1.417715.3.579. 2.1246 1943 Unknown [id number] 2.16.840.1.355739.3.579. 2.903 1943 Unknown [id number] 2.16.840.1.369661.3.579. 2.903 1943 Unknown [id number] 2.16.840.1.442881.3.579. 2.903 1943 Unknown [id number] 2.16.840.1.828176.3.579. 2.903 Unknown [id number] 2.16.840.1.518729.3.579. 2.462 Unknown [id number] 2.16.840.1.690156.3.579. 2.462 Unknown [id number] 2.16.840.1.375984.3.579. 2.462 Social History Date Type Detail Facility Start: 05-18-2017 End: 11-24-2021 Tobacco smoking status GAIS Never smoker [facility] Start: 1945 Sex Assigned At Not on file [facility] [employer] Work Phone: Start: 05-17-2019 End: 09-29-2024 Alcohol intake Current non-drinker of alcohol (finding) [facility] Start: 05-17-2019 End: 11-24-2021 Tobacco use and exposure Never used [facility] Start: 11-14-2021 End: 08-14-2024 Exposure to SARS-CoV-2 (event) Not sure [facility] Start: 05-18-2017 End: 09-29-2024 Cigarette pack-years [facility] Start: 02-16-2022 History SDOH Alcohol Frequency 1 [facility] Start: 02-16-2022 History SDOH Alcohol Std Drinks 0 [facility] Start: 02-16-2022 History SDOH Social Connections Phone 98 [facility] Start: 02-16-2022 History SDOH Social Connections Rastafari 3 [facility] Start: 02-16-2022 History SDOH Social Connections Living 4 [facility] Start: 02-16-2022 History SDOH Transport Med 2 [facility] Start: 11-24-2021 End: 09-29-2024 Tobacco use panel [facility] In a typical week, h ow many times do you talk on the telephone with family, friends, or neighbors? Patient refused [facility] Are you now , , , , never or living with a partner? [facility] How often to you hav e a drink containing alcohol? Never [facility] (I/We) worried wheth er (my/our) food would run out before (I/we) got money to buy more. Never true [facility] In the past 12 month s, was there a time when you were not able to pay the mortgage or rent on time? No [facility] Start: 06-10-2023 End: 01-05-2024 Alcohol intake Lifetime non-drinker (finding) [facility] Work Phone: Do you belong to any clubs or organizations such as hindu groups, unions, fraternal or athletic groups, or school groups? Yes [facility] Do you feel stress - tense, restless, nervous, or anxious, or unable to sleep at night because your mind is troubled all the time - these days [OSQ] Not at all [facility] Medical Equipment Procedure Code Equipment Code Equipment Origin al Text Equipment Identifier Dates Lens, Intraocula r, Sn60wf 21.5 Case [id number] Start: 01-04-2020 Comment on above: Description: Convert ed from [facility]. Please see archived information for full log information. Lens, Intraocula r, Sn60wf 21.0 Case [id number] Start: 01-18-2020 Comment on above: Description: Convert ed from [facility]. Please see archived information for full log information. Baseplate, Lateralized, +3mm, 25mm - [id number] - [id number] Start: 08-10-2023 Insert, Reversed , 36mm X 9 X 12.5 - [id number] - [id number] Start: 08-10-2023 Tray, Ascend Fle x Reversed Th 0ec 0 - [id number] - [id number] Start: 08-10-2023 Screw, Perform Reversed Peripheral, 5.0 X 38mm - [id number] Start: 08-10-2023 Screw, Perform Reversed Peripheral, 5.0 X 18mm - [id number] Start: 08-10-2023 Post, Perform Reversed, Press-Fit, Short, 7mm - [id number] - [id number] Start: 08-10-2023 Flex Shoulder Sy s Revinsert [id number] Start: 08-10-2023 98mm 3b Lamont Aequalis Ascend Flex Long Ptc Humeral Stem 132.5-Deg (Formerly Tornier) [id number] Start: 08-10-2023 Peripscrew [id number] Start: 08-10-2023 Humeral Stem [id number] Start: 08-10-2023 Glenosphere [id number] Start: 08-10-2023 Clinical Notes 02-07-2016 to 09-29-2024 Candice Kiran MD - 09/29/2024 9:20 AM EDTPatient Tisha Lugo MD - 08/14/2024 1:45 PM MAYANKTIndira Levy MD - 08/07/2024 2:15 PM EDTDischarge Instructions Note Date & Type Note Facility 09-29-2024 History of Presen t illness Narrative OFFICE CONSULTATION NOTE [facility] [address] [facility] [address] [facility] [id number] Physicians: Trace Mendiola, (Family); No ref. provider found (Referring) Subjective: I had the pleasure of seeing Ms. Felisha Joaquin at the [facility] [place] office on 09/29/2024. Ms. Joaquin is a 79 y.o. female who presents today for routine cardiology follow-up. Ms. Joaquin is an 78-year-old female with a past medical history of coronary artery disease status post non-ST elevation myocardial infarction in 2013 at which time a cardiac catheterization showed only nonobstructive coronary disease. Her LVEF was noted to be 40% at that time. She was started on goal-directed medical therapy and did have recovery of her ventricular function. She was last seen in January 2024 at which time she was doing well from a cardiovascular standpoint. Since her last visit, Felisha has done well. She denies any cardiovascular concerns. She is able to perform her ADLs without difficulty. She denies chest discomfort. Denies orthopnea, PND. She takes her Lasix once a day, but does occasionally miss a dose if she is going out. No hospitalizations or ER visits for primary cardiac related issues since I saw her last. No bleeding issues on aspirin 81 mg daily. She denies any significant dizziness or lightheadedness. She denies syncope. No further falls. Past Medical History: Past Medical History: Diagnosis Date Coronary artery disease GERD (gastroesophageal reflux disease) Hyperlipidemia Hypertension Non-ST elevation myocardial infarction (NSTEMI) ([facility]) 03/2014 Osteoarthritis Past Surgical History: Procedure Laterality Date BASAL CELL CARCINOMA EXCISION BUNIONECTOMY CARDIAC CATHETERIZATION Left 01/25/2014 EF 40% CT COLONOSCOPY 11/27/2019 CT COLONOSCOPY Family History Problem Relation Age of Onset Heart attack Mother Social History Tobacco Use Smoking status: Never Smokeless tobacco: Never Vaping Use Vaping status: Never Used Substance Use Topics Alcohol use: No Drug use: No Outpatient Medications as of 09/29/2024 Medication Sig aspirin 81 MG EC tablet Take 1 (one) tablet (81 mg total) by mouth daily . atorvastatin (LIPITOR) 20 MG tablet TAKE 1 TABLET EVERY DAY carvediloL (COREG) 3.125 MG tablet TAKE 1 TABLET TWICE DAILY WITH MEALS cholecalciferol, vitamin D3, 25 mcg (1,000 unit) capsule Take 25 mcg by mouth daily . docusate sodium (COLACE) 100 MG capsule Take 1 (one) capsule (100 mg total) by mouth 2 (two) times a day . enalapril (VASOTEC) 2.5 MG tablet Take 1 (one) tablet (2.5 mg total) by mouth daily . fexofenadine-pseudoePHEDrine (ELSIE-D 24) 180-240 mg per 24 hr tablet Take 1 (one) tablet by mouth once . folic acid (FOLVITE) 1 MG tablet Take 2 (two) tablets (2,000 mcg total) by mouth daily . furosemide (LASIX) 40 MG tablet Take 1 (one) tablet (40 mg total) by mouth daily . methoTREXate (TREXALL) 2.5 MG tablet Take 1 (one) tablet (2.5 mg total) by mouth once a week . pantoprazole (PROTONIX) 40 MG tablet Take 1 (one) tablet (40 mg total) by mouth daily . peg 400-propylene glycol 0.4-0.3 % Drop 1 (one) drop . potassium chloride SA (K-DUR,KLOR-CON M10) 10 MEQ tablet TAKE 1 TABLET EVERY DAY WHEN TAKING FUROSEMIDE 20MG DAILY FOR LOWER EXTREMITY SWELLING predniSONE (DELTASONE) 10 MG tablet TAKE 1 TABLET BY MOUTH EVERY DAY NEEDED FOR 3-5 DAYS WITH A FLARE ascorbic acid, vitamin C, (VITAMIN C) 500 MG tablet Take 1 (one) tablet (500 mg total) by mouth daily . Allergies Allergen Reactions No Known Drug Allergies Review of Systems Constitutional: Negative for chills, decreased appetite, diaphoresis, malaise/fatigue, weight gain and weight loss. HENT: Negative for nosebleeds. Cardiovascular: See HPI Respiratory: Negative for cough, shortness of breath, sleep disturbances due to breathing and snoring. Endocrine: Negative for cold intolerance and heat intolerance. Hematologic/Lymphatic: Does not bruise/bleed easily. Musculoskeletal: Positive for arthritis, joint pain and myalgias. Gastrointestinal: Negative for heartburn, hematemesis, hematochezia, melena, nausea and vomiting. Neurological: Positive for disturbances in coordination. Negative for excessive daytime sleepiness, focal weakness, light-headedness and paresthesias. All other systems reviewed and are negative. Objective: Vitals: BP 128/80 (BP Location: Left arm, Patient Position: Sitting, BP Cuff Size: X-large Adult) Pulse 69 Wt 100.2 kg (221 lb) SpO2 96% BMI 36.78 kg/m Physical Exam Vitals reviewed. Constitutional: General: She is not in acute distress. Appearance: She is well-developed. HENT: Head: Normocephalic and atraumatic. Nose: Nose normal. Eyes: General: No scleral icterus. Extraocular Movements: Extraocular movements intact. Conjunctiva/sclera: Conjunctivae normal. Neck: Vascular: No carotid bruit or JVD. Cardiovascular: Rate and Rhythm: Normal rate and regular rhythm. No extrasystoles are present. Chest Wall: PMI is not displaced. Pulses: Intact distal pulses. Carotid pulses are 2+ on the right side and 2+ on the left side. Radial pulses are 2+ on the right side and 2+ on the left side. Posterior tibial pulses are 2+ on the right side and 2+ on the left side. Heart sounds: S1 normal and S2 normal. Heart sounds not distant. No midsystolic click. No murmur heard. No friction rub. No gallop. Pulmonary: Effort: Pulmonary effort is normal. Breath sounds: Normal breath sounds. No wheezing or rales. Abdominal: Palpations: Abdomen is soft. Tenderness: There is no abdominal tenderness. Comments: Obese Musculoskeletal: Cervical back: Neck supple. Right lower leg: No edema. Left lower leg: No edema. Skin: General: Skin is warm and dry. Findings: No erythema or rash. Neurological: Mental Status: She is alert and oriented to person, place, and time. Cranial Nerves: No cranial nerve deficit. ECG (02/15/2024): Normal sinus rhythm with normal AR and QT intervals, right bundle branch block. There is no evidence of ischemia, infarction, hypertrophy or pre-excitation noted. Assessment & Plan: Ms. Joaquin is an 79 year old female with a past medical history of coronary artery disease status post non-ST elevation myocardial infarction in 2013, hypertension and hyperlipidemia. She is currently asymptomatic from a cardiovascular standpoint with stable functional capacity. Her heart rate and blood pressure are acceptable today on her current medical regimen. I elected to make no changes to her current medical regimen and she will continue on Lasix with potassium supplementation, carvedilol and enalapril for her previous history of left ventricular systolic dysfunction which is now recovered. She will continue on aspirin 81 mg daily and atorvastatin for her underlying coronary disease. Ms. Joaquin remains self limited in her activities. She should engage in daily aerobic activity as tolerated for long-term cardiovascular health and weight loss. Based on the most recent ACC/AHA guidelines, Ms. Joaquin does not require SBE prophylaxis prior to dental, GI, or procedures. I will follow-up with Ms. Joaquin in 9 months with no testing; however, if she has any concerns before that time, she will contact us for further evaluation. Candice Kiran MD, [facility] 09/29/2024 documented in this encounter [facility] 09-29-2024 Note OFFICE CONSULTATION NOTE [facility] [address] [facility] [address] [facility] [phone] Physicians: Trace Mendiola, DO (Family); No ref. provider found (Referring) Subjective: I had the pleasure of seeing Ms. Felisha Joaquin at the [facility] [place] office on 09/29/2024. Ms. Joaquin is a 79 y.o. female who presents today for routine cardiology follow-up. Ms. Joaquin is an 78-year-old female with a past medical history of coronary artery disease status post non-ST elevation myocardial infarction in 2013 at which time a cardiac catheterization showed only nonobstructive coronary disease. Her LVEF was noted to be 40% at that time. She was started on goal-directed medical therapy and did have recovery of her ventricular function. She was last seen in January 2024 at which time she was doing well from a cardiovascular standpoint. Since her last visit, Felisha has done well. She denies any cardiovascular concerns. She is able to perform her ADLs without difficulty. She denies chest discomfort. Denies orthopnea, PND. She takes her Lasix once a day, but does occasionally miss a dose if she is going out. No hospitalizations or ER visits for primary cardiac related issues since I saw her last. No bleeding issues on aspirin 81 mg daily. She denies any significant dizziness or lightheadedness. She denies syncope. No further falls. Past Medical History: Past Medical History: Diagnosis Date Coronary artery disease GERD (gastroesophageal reflux disease) Hyperlipidemia Hypertension Non-ST elevation myocardial infarction (NSTEMI) ([facility]) 03/2014 Osteoarthritis Past Surgical History: Procedure Laterality Date BASAL CELL CARCINOMA EXCISION BUNIONECTOMY CARDIAC CATHETERIZATION Left 01/25/2014 EF 40% CT COLONOSCOPY 11/27/2019 CT COLONOSCOPY Family History Problem Relation Age of Onset Heart attack Mother Social History Tobacco Use Smoking status: Never Smokeless tobacco: Never Vaping Use Vaping status: Never Used Substance Use Topics Alcohol use: No Drug use: No Outpatient Medications as of 09/29/2024 Medication Sig aspirin 81 MG EC tablet Take 1 (one) tablet (81 mg total) by mouth daily . atorvastatin (LIPITOR) 20 MG tablet TAKE 1 TABLET EVERY DAY carvediloL (COREG) 3.125 MG tablet TAKE 1 TABLET TWICE DAILY WITH MEALS cholecalciferol, vitamin D3, 25 mcg (1,000 unit) capsule Take 25 mcg by mouth daily . docusate sodium (COLACE) 100 MG capsule Take 1 (one) capsule (100 mg total) by mouth 2 (two) times a day . enalapril (VASOTEC) 2.5 MG tablet Take 1 (one) tablet (2.5 mg total) by mouth daily . fexofenadine-pseudoePHEDrine (ELSIE-D 24) 180-240 mg per 24 hr tablet Take 1 (one) tablet by mouth once . folic acid (FOLVITE) 1 MG tablet Take 2 (two) tablets (2,000 mcg total) by mouth daily . furosemide (LASIX) 40 MG tablet Take 1 (one) tablet (40 mg total) by mouth daily . methoTREXate (TREXALL) 2.5 MG tablet Take 1 (one) tablet (2.5 mg total) by mouth once a week . pantoprazole (PROTONIX) 40 MG tablet Take 1 (one) tablet (40 mg total) by mouth daily . peg 400-propylene glycol 0.4-0.3 % Drop 1 (one) drop . potassium chloride SA (K-DUR,KLOR-CON M10) 10 MEQ tablet TAKE 1 TABLET EVERY DAY WHEN TAKING FUROSEMIDE 20MG DAILY FOR LOWER EXTREMITY SWELLING predniSONE (DELTASONE) 10 MG tablet TAKE 1 TABLET BY MOUTH EVERY DAY NEEDED FOR 3-5 DAYS WITH A FLARE ascorbic acid, vitamin C, (VITAMIN C) 500 MG tablet Take 1 (one) tablet (500 mg total) by mouth daily . Allergies Allergen Reactions No Known Drug Allergies Review of Systems Constitutional: Negative for chills, decreased appetite, diaphoresis, malaise/fatigue, weight gain and weight loss. HENT: Negative for nosebleeds. Cardiovascular: See HPI Respiratory: Negative for cough, shortness of breath, sleep disturbances due to breathing and snoring. Endocrine: Negative for cold intolerance and heat intolerance. Hematologic/Lymphatic: Does not bruise/bleed easily. Musculoskeletal: Positive for arthritis, joint pain and myalgias. Gastrointestinal: Negative for heartburn, hematemesis, hematochezia, melena, nausea and vomiting. Neurological: Positive for disturbances in coordination. Negative for excessive daytime sleepiness, focal weakness, light-headedness and paresthesias. All other systems reviewed and are negative. Objective: Vitals: BP 128/80 (BP Location: Left arm, Patient Position: Sitting, BP Cuff Size: X-large Adult) Pulse 69 Wt 100.2 kg (221 lb) SpO2 96% BMI 36.78 kg/m Physical Exam Vitals reviewed. Constitutional: General: She is not in acute distress. Appearance: She is well-developed. HENT: Head: Normocephalic and atraumatic. Nose: Nose normal. Eyes: General: No scleral icterus. Extraocular Movements: Extraocular movements intact. (more content not included)... [facility] 09-29-2024 Instructions Janina Mckeon RN - 09/29/2024 8:00 AM EDT How to contact your Care Team: Provider: Dr.SHARON KIRAN Nurse: Nkechi NORIEGA MA: Kevin Paul Fax: In case of an emergency please call [phone]. Thank you for choosing us for your care . If you receive a survey please fill it out and submit it REFILLS: When in need for refills please call your care team or the office at [phone]. Please include medication name, pharmacy name, and specify 30-day or 90-day supply. Please check with your pharmacy within 24 hours of request for your refill. You must follow up as directed to continue current refills. Thank you! documented in this encounter [facility] 08-14-2024 History of Presen t illness Narrative Images from the original note were not included. S/p R ulna distal darrach, small +ring finger extensor tendon transfer, extensor tenosynovectomy 10/07/2023. No complaints today. States that following graduation of occupational therapy she sleeps in a finger extension brace that she feels helps with strength during the day. She is now following with rheumatology and has been started on methotrexate with improvement in overall hand pain and joint pain. Denies numbness and tingling. Feels strength has improved. Endorses continued lag to the small finger particular relative to the long finger. Physical Examination: The patient appears to be their stated age, is in no apparent distress, and is oriented x3. The patients mood and affect are appropriate. The patients gait is normal. The examination of the limb in question was performed in comparison to the contralateral limb. Incision well-healed. No pain to the distal ulna stump. From a fist she is able to extend all of her digits. With the wrist held in extension and MCPs at neutral she is able to extend the index long ring and small. Additionally good flexion of the PIPs. Making a full composite fist. 0 cm tip to palm distance of all fingers. Persistent 20 degree lag of ring finger in relation to long . Persistent 15 degree lag present to the small finger. AIN, PIN, ulnar intact SILT A/R/U/M Hand wwp Assessment: 10 months post op Plan: She is doing very well. I am happy that she is following up with rheumatology and has established care and now on methotrexate. She can continue wearing her nighttime brace as tolerated. Continue activity as tolerated. Weight-bear as tolerated. Follow-up as needed Maryam Levy MD documented in this encounter [facility] Work Phone: 08-07-2024 History of Presen t illness Narrative Chief Complaint Patient presents with Right Shoulder - Follow-up TS-everse DOS: 08/10/23 (5 months) Xrays today History of Present Illness Felisha is an 78-year-old female presenting today for follow-up after right reverse total shoulder arthroplasty for proximal humerus fracture. Patient denies any pain at this time. Overall very happy with the result Exam Minimal swelling Incision well healed Normal sensation over deltoid Active forward flexion 0-160 Active abduction 0 to 85 degrees Neurovascular exam normal distally Internal rotation to lumbar spine Diagnostics XR shoulder right 2+ views Result Date: 08/07/2024 Interpreted By: Indira Levy III, STUDY: XR SHOULDER RIGHT 2+ VIEWS; ; 08/07/2024 2:42 pm INDICATION: Signs/Symptoms:pain. 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 ACCESSION NUMBER(S): [id number] ORDERING CLINICIAN: INDIRA LEVY FINDINGS: Three views right shoulder: Status post right reverse shoulder arthroplasty for fracture. Similar inferior tilt about the glenosphere in comparison to prior x-rays. Scant lucency about the proximal aspect of the humeral prosthesis. No periprosthetic fracture. Some lucency about the inferior aspect in early findings consistent with scapular impingement. Status post right reverse shoulder arthroplasty for fracture MACRO: None Signed by: Indira Levy III 08/07/2024 3:39 PM Dictation workstation: [id number] XR shoulder right 2+ views Result Date: 11/13/2023 Interpreted By: Lacy Montoya, STUDY: Right shoulder 3 views. INDICATION: Signs/Symptoms:pain. COMPARISON: 09/24/2023. ACCESSION NUMBER(S): [id number] ORDERING CLINICIAN: INDIRA LEVY FINDINGS: Patient is status post right reverse total shoulder arthroplasty for proximal humeral fracture. Hardware is intact without perihardware fractures or lucencies. No malalignment. 1. Right reverse total shoulder arthroplasty without hardware complication. Signed by: Lacy Montoya 11/13/2023 9:51 AM Dictation workstation: [id number] Assessment Patient status post right reverse total shoulder arthroplasty for fracture 1 year follow-up Plan Continue physical therapy strengthening and conditioning aimed at improving range of motion. Discussed activity restrictions. Follow-up at 2 year operative anniversary XR at follow up 3views Shoulder Grashey, Axillary, Scap Y Discussed activities to avoid as well as importance of using pain as a guide She returns sooner if she is having any issues documented in this encounter [facility] Work Phone: 06-01-2024 Telephone encounter Note Noted, thank you. I have updated our medication list. Thank you, Kaylen Best APRN.CNP [facility] 06-01-2024 Miscellaneous Notes Noted, thank you. I have updated our medication list. Thank you, Kaylen Best APRN.VEGETABLE PREPARER Pt saw Kaylen this morning and was to call in with her dose of Methotrexate. Pt has 2.5 mg tablets and takes 7 tablets once a week on Saturdays. documented in this encounter [facility] 06-01-2024 Telephone encounter Note Pt saw Kaylen this morning and was to call in with her dose of Methotrexate. Pt has 2.5 mg tablets and takes 7 tablets once a week on Saturdays. [facility] 06-01-2024 Note HNO ID: [id number] Author: KAYLEN BEST APRN.CNP Service: ? Author Type: Nurse Practitioner Type: Progress Notes Filed: 06/01/2024 09:29 Note Text: Felisha Joaquin is a 79 year old female here for a Medicare wellness visit. Medicare Health Risk Assessment General Health Good Exercise: Minutes/Day 0 min Exercise: Days/Week 0 days Alcohol: Daily Use Never Alcohol: Drinks/Day Patient does not drink Alcohol: 6 or more drinks Never Feel off balance No Concerns: Teeth/Dentures No Concerns: Sexual function No Troubled by feelings None of the above Frequency: Eating healthy diet Several days ADLs requiring help None of the above Safety precautions in home/vehicle Yes Smoke, vape, chews tobacco No Difficulty hearing Yes Difficulty seeing No Current Providers Specialists: I have reviewed specialist-related care of the patient in the medical record. Medical/Family history review Reviewed and updated problem list, medical/surgical/family/social history, medications, and allergies. Opioid use review Opioid Medications (last 90 days) No data to display Anxiety/Depression screening PHQ-2 Score: 0 (Lower risk for depression) Recommendation: no further intervention at this time Cognitive screening Cognitive screening reviewed and No further action needed (score 3-5). Functional Observation Was the patient's Timed Up AND Go test unsteady or >= 12 seconds? No Advance Care Planning Patient did not wish or was not able to name a surrogate decision maker or provide an advance care plan Measurements Ht 167 cm (5' 5.75) Wt 98.5 kg (217 lb 3.2 oz) BMI 35.33 kg/m? Vision Screening: Follows with optometry/ophthalmology Assessment/Plan Medicare annual wellness visit, subsequent (Z00.00) - Counseled on healthy diet and regular exercise - Fall avoidance information provided - Personalized prevention plan provided Medications refilled. Recent lab work reviewed. Kaylen Best APRN.[facility] 06-01-2024 History of Presen t illness Narrative Images from the original note were not included. Felisha Joaquin is a 79 year old female here for a Medicare wellness visit. Medicare Health Risk Assessment General Health Good Exercise: Minutes/Day 0 min Exercise: Days/Week 0 days Alcohol: Daily Use Never Alcohol: Drinks/Day Patient does not drink Alcohol: 6 or more drinks Never Feel off balance No Concerns: Teeth/Dentures No Concerns: Sexual function No Troubled by feelings None of the above Frequency: Eating healthy diet Several days ADLs requiring help None of the above Safety precautions in home/vehicle Yes Smoke, vape, chews tobacco No Difficulty hearing Yes Difficulty seeing No Current Providers Specialists: I have reviewed specialist-related care of the patient in the medical record. Medical/Family history review Reviewed and updated problem list, medical/surgical/family/social history, medications, and allergies. Opioid use review Opioid Medications (last 90 days) No data to display Anxiety/Depression screening PHQ-2 Score: 0 (Lower risk for depression) Recommendation: no further intervention at this time Cognitive screening Cognitive screening reviewed and No further action needed (score 3-5). Functional Observation Was the patient's Timed Up & Go test unsteady or >= 12 seconds? No Advance Care Planning Patient did not wish or was not able to name a surrogate decision maker or provide an advance care plan Measurements Ht 167 cm (5' 5.75) Wt 98.5 kg (217 lb 3.2 oz) BMI 35.33 kg/m Vision Screening: Follows with optometry/ophthalmology Assessment/Plan Medicare annual wellness visit, subsequent (Z00.00) - Counseled on healthy diet and regular exercise - Fall avoidance information provided - Personalized prevention plan provided Medications refilled. Recent lab work reviewed. Kaylen Best APRN.VEGETABLE PREPARER documented in this encounter [facility] 05-29-2024 Note HNO ID: [id number] Author: ?, ?, ? Service: ? Author Type: ? Type: Progress Notes Filed: 05/29/2024 08:25 Note Text: Felisha Joaquin is identified through a medication adherence outreach initiative based on pharmacy claims data from [employer] (insurer) for STEPHIE medication(s). Patient is reviewed 05/29/24 due to medication adherence concerns with the following medications (name, strength, sig): enalapril 2.5mg, take 1 tablet daily. Per data/report, last fill date and days supply: due 05/09/24 Per reconcile dispense, last fill date and days supply: filled 04/18/24 for 90 days Per call to pharmacy, last picked up date and days supply: n/a Outcome of review/outreach: (choose outcome source and status) - Filled before Next fill date per reconcile dispense Natasha Echeverria [facility] 05-29-2024 History of Presen t illness Narrative Felisha Joaquin is identified through a medication adherence outreach initiative based on pharmacy claims data from [employer] (insurer) for STEPHIE medication(s). Patient is reviewed 05/29/24 due to medication adherence concerns with the following medications (name, strength, sig): enalapril 2.5mg, take 1 tablet daily. Per data/report, last fill date and days supply: due 05/09/24 Per reconcile dispense, last fill date and days supply: filled 04/18/24 for 90 days Per call to pharmacy, last picked up date and days supply: n/a Outcome of review/outreach: (choose outcome source and status) - Filled before Next fill date per reconcile dispense Natasha Echeverria documented in this encounter [facility] 05-29-2024 Note Patient Outreach ( POHE) FELISHA JOAQUIN ([id number]) 1945 F Date Time Provider Department 05/29/24 TRACE MENDIOLA During your visit today, we recorded the following information about you: Natasha Echeverria 05/29/2024 8:25 AM Signed Felishaderek Joaquin is identified through a medication adherence outreach initiative based on pharmacy claims data from [employer] (insurer) for STEPHIE medication(s). Patient is reviewed 05/29/24 due to medication adherence concerns with the following medications (name, strength, sig): enalapril 2.5mg, take 1 tablet daily. Per data/report, last fill date and days supply: due 05/09/24 Per reconcile dispense, last fill date and days supply: filled 04/18/24 for 90 days Per call to pharmacy, last picked up date and days supply: n/a Outcome of review/outreach: (choose outcome source and status) - Filled before Next fill date per reconcile dispense Natasha Echeverria Allergies As of Date: 05/29/2024 (No Known Allergies) Date Reviewed: 09/28/2023 Reviewed by: Chyna Grimm APRN.VEGETABLE PREPARER - Fully Assessed Reason for Visit: Allied Health Visit [5] Cmt: Medication Adherence Outreach Prescriptions as of 05/29/2024 - furosemide (LASIX) 40 mg tablet Take 1 tablet by mouth once daily. - pantoprazole DR (PROTONIX) 40 mg tablet Take 1 tablet by mouth once daily. - prednisoLONE acetate (PRED FORTE, ECONOPRED PLUS) 1 % ophthalmic suspension Use 1 Drop in the right eye four times daily. - ketorolac (ACULAR) 0.5 % ophthalmic solution Use 1 Drop in the right eye four times daily. - docusate sodium (STOOL SOFTENER) 100 mg capsule Take 1 capsule by mouth twice daily. - Fexofenadine-Pseudoephedrine (ELSIE-D 24 HOUR) 180-240 mg per 24 hr tablet Take 1 tablet by mouth once daily as needed (sinus/cold symptoms). - KLOR-CON 10 10 mEq tablet - Naproxen SR (EC-NAPROSYN) 500 mg EC tablet Take 1 tablet by mouth twice daily as needed. - enalapril (VASOTEC) 2.5 mg tablet Take 2.5 mg by mouth once daily. - atorvastatin (LIPITOR) 20 mg tablet Take 1 tablet by mouth once daily. For cholesterol. - carvedilol (COREG) 3.125 mg tablet Take 1 tablet by mouth twice daily. - aspirin, enteric coated 81 mg EC tablet Take 81 mg by mouth once daily. - ascorbic acid, vitamin C, (VITAMIN C) 500 mg tablet Take 500 mg by mouth once daily. 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] 02/07/2016 Visual field loss [H53.40] 03/20/2016 Dry eye syndrome [H04.129] 04/07/2016 Combined forms of age-related cataract of both *04/07/2016 Vitreous floaters of both eyes [H43.393] 04/07/2016 Punctate keratitis, bilateral [H16.143] 01/27/2017 Obesity, Class III, BMI 40-49.9 (morbid obesity*09/06/2017 Epiretinal membrane (ERM) of both eyes [H35.373]10/13/2019 Essential hypertension [I10] 10/13/2019 Hemangioma of eyelid [D18.01] 10/13/2019 Status post cataract extraction and insertion o*01/19/2020 Status post cataract extraction and insertion o*01/19/2020 Dyslipidemia [E78.5] 02/17/2022 Fatigue [R53.83] 02/17/2022 Vitamin D deficiency [E55.9] 02/17/2022 Medicare annual wellness visit, subsequent [Z00*02/17/2022 Encounter Status:Closed by NATASHA ECHEVERRIA on 05/29/24 [facility] 03-03-2024 Telephone encounter Note Prescription Refill Information The patient has been identified by name and date of : Yes Caregiver verified no other encounters exist for this prescription request: Yes Caregiver confirmed with patient/requestor that no other refills are due, in the near future, with this provider at this time: Yes The last office visit in the department: 09/28/23 Does the patient have a future office visit with this provider/department: Yes 05/31/24 Requested Prescriptions Pending Prescriptions Disp Refills furosemide (LASIX) 40 mg tablet 90 tablet 0 Sig: Take 1 tablet by mouth once daily. Alta Mares LPN March 03, 2024 7:07 AM [facility] 03-03-2024 Miscellaneous Notes Prescription Refill Information The patient has been identified by name and date of : Yes Caregiver verified no other encounters exist for this prescription request: Yes Caregiver confirmed with patient/requestor that no other refills are due, in the near future, with this provider at this time: Yes The last office visit in the department: 09/28/23 Does the patient have a future office visit with this provider/department: Yes 05/31/24 Requested Prescriptions Pending Prescriptions Disp Refills furosemide (LASIX) 40 mg tablet 90 tablet 0 Sig: Take 1 tablet by mouth once daily. Alta Mares LPN March 03, 2024 7:07 AM documented in this encounter [facility] 02-24-2024 Note HNO ID: [id number] Author: GUERDA GUERRERO MA Service: ? Author Type: Quarter Inspector Type: Progress Notes Filed: 02/24/2024 14:05 Note Text: POPULATION HEALTH NAVIGATION OUTREACH Action/FYI spoke to pt and scheduled wellness exam, hcc gap closure, bp to be addressed as she isn't compliant in hm not <130/80, pt declined influenza vaccine- pt asking if shingles vaccine can be done at time of her ov, I added note to OV visit for dr to address this Reason for Outreach Care Gap/HCC or Scheduling Wellness Visits Care Gaps due: Medicare Annual Wellness Visit Controlling Blood Pressure Flu Vaccine Patient Contacted: Spoke to patient/parent/or legal guardian Patient identified by name and : Yes Care Gap/HCC/Scheduling Wellness actions taken: Patient scheduled/pended orders: Medicare Annual Wellness Visit Controlling Blood Pressure 05/31/2024 in [facility] with TRACE MENDIOLA - medicare wellness, hcc gap closure, bp, pt requesting shingles vaccine if possible HCC related Navigation Signature: Guerda Guerrero MA February 24, 2024 2:03 PM [facility] 02-24-2024 History of Presen t illness Narrative POPULATION HEALTH NAVIGATION OUTREACH Action/FYI spoke to pt and scheduled wellness exam, hcc gap closure, bp to be addressed as she isn't compliant in hm not <130/80, pt declined influenza vaccine- pt asking if shingles vaccine can be done at time of her ov, I added note to OV visit for dr to address this Reason for Outreach Care Gap/HCC or Scheduling Wellness Visits Care Gaps due: Medicare Annual Wellness Visit Controlling Blood Pressure Flu Vaccine Patient Contacted: Spoke to patient/parent/or legal guardian Patient identified by name and : Yes Care Gap/HCC/Scheduling Wellness actions taken: Patient scheduled/pended orders: Medicare Annual Wellness Visit Controlling Blood Pressure 05/31/2024 in [facility] with TRACE MENDIOLA - medicare wellness, hcc gap closure, bp, pt requesting shingles vaccine if possible HCC related Navigation Signature: Guerda Guerrero MA February 24, 2024 2:03 PM documented in this encounter [facility] 02-24-2024 Note Patient Outreach (NE TNAV) FELISHA JOAQUIN ([id number]) 1945 F Date Time Provider Department 02/24/24 GUERDA GUERRERO During your visit today, we recorded the following information about you: Guerda Guerrero MA 02/24/2024 2:05 PM Signed POPULATION HEALTH NAVIGATION OUTREACH Action/FYI spoke to pt and scheduled wellness exam, hcc gap closure, bp to be addressed as she isn't compliant in hm not <130/80, pt declined influenza vaccine- pt asking if shingles vaccine can be done at time of her ov, I added note to OV visit for dr to address this Reason for Outreach Care Gap/HCC or Scheduling Wellness Visits Care Gaps due: Medicare Annual Wellness Visit Controlling Blood Pressure Flu Vaccine Patient Contacted: Spoke to patient/parent/or legal guardian Patient identified by name and : Yes Care Gap/HCC/Scheduling Wellness actions taken: Patient scheduled/pended orders: Medicare Annual Wellness Visit Controlling Blood Pressure 05/31/2024 in [facility] with TRACE MENDIOLA - medicare wellness, hcc gap closure, bp, pt requesting shingles vaccine if possible HCC related Navigation Signature: Guerda Guerrero MA February 24, 2024 2:03 PM Allergies As of Date: 02/24/2024 (No Known Allergies) Date Reviewed: 09/28/2023 Reviewed by: Chyna Grimm APRN.VEGETABLE PREPARER - Fully Assessed Reason for Visit: Population Health Navigation Outreach [3910] Cmt: Fantasma stevensbecarla mina Prescriptions as of 02/24/2024 - furosemide (LASIX) 40 mg tablet Take 1 tablet by mouth once daily. - pantoprazole DR (PROTONIX) 40 mg tablet Take 1 tablet by mouth once daily. - prednisoLONE acetate (PRED FORTE, ECONOPRED PLUS) 1 % ophthalmic suspension Use 1 Drop in the right eye four times daily. - ketorolac (ACULAR) 0.5 % ophthalmic solution Use 1 Drop in the right eye four times daily. - docusate sodium (STOOL SOFTENER) 100 mg capsule Take 1 capsule by mouth twice daily. - Fexofenadine-Pseudoephedrine (ELSIE-D 24 HOUR) 180-240 mg per 24 hr tablet Take 1 tablet by mouth once daily as needed (sinus/cold symptoms). - KLOR-CON 10 10 mEq tablet - Naproxen SR (EC-NAPROSYN) 500 mg EC tablet Take 1 tablet by mouth twice daily as needed. - enalapril (VASOTEC) 2.5 mg tablet Take 2.5 mg by mouth once daily. - atorvastatin (LIPITOR) 20 mg tablet Take 1 tablet by mouth once daily. For cholesterol. - carvedilol (COREG) 3.125 mg tablet Take 1 tablet by mouth twice daily. - aspirin, enteric coated 81 mg EC tablet Take 81 mg by mouth once daily. - ascorbic acid, vitamin C, (VITAMIN C) 500 mg tablet Take 500 mg by mouth once daily. 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] 02/07/2016 Visual field loss [H53.40] 03/20/2016 Dry eye syndrome [H04.129] 04/07/2016 Combined forms of age-related cataract of both *04/07/2016 Vitreous floaters of both eyes [H43.393] 04/07/2016 Punctate keratitis, bilateral [H16.143] 01/27/2017 Obesity, Class III, BMI 40-49.9 (morbid obesity*09/06/2017 Epiretinal membrane (ERM) of both eyes [H35.373]10/13/2019 Essential hypertension [I10] 10/13/2019 Hemangioma of eyelid [D18.01] 10/13/2019 Status post cataract extraction and insertion o*01/19/2020 Status post cataract extraction and insertion o*01/19/2020 Dyslipidemia [E78.5] 02/17/2022 Fatigue [R53.83] 02/17/2022 Vitamin D deficiency [E55.9] 02/17/2022 Medicare annual wellness visit, subsequent [Z00*02/17/2022 Encounter Status:Closed by GUERDA GUERRERO on 02/24/24 [facility] 02-15-2024 Note OFFICE CONSULTATION NOTE [facility] [address] [facility] [address] [facility] [id number] Physicians: Trace Mendiola DO (Family); No ref. provider found (Referring) Subjective: I had the pleasure of seeing Ms. Felisha Joaquin at the [facility] [place] office on 02/14/2024. Ms. Joaquin is a 78 y.o. female who presents today for routine cardiology follow-up. Ms. Joaquin is an 78-year-old female with a past medical history of coronary artery disease status post non-ST elevation myocardial infarction in 2013 at which time a cardiac catheterization showed only nonobstructive coronary disease. Her LVEF was noted to be 40% at that time. She was started on goal-directed medical therapy and did have recovery of her ventricular function. She was last seen by our nurse practitioner in November 2022 at which time she was doing well from a cardiovascular standpoint and 1 year follow-up was recommended. Over the last year, Felisha has done well. She denies any cardiovascular concerns. She is able to perform her ADLs without difficulty. She denies chest discomfort. Denies orthopnea, PND. She has not required use of Lasix in the last year that she can recall. No hospitalizations or ER visits for primary cardiac related issues over the last year. No bleeding issues on aspirin 81 mg daily. She denies any significant dizziness or lightheadedness. She she did fall in May which resulted in a shoulder/humerus fracture. She had surgery for this which was uncomplicated from a cardiovascular standpoint. She denies syncope. Past Medical History: Past Medical History: Diagnosis Date Coronary artery disease GERD (gastroesophageal reflux disease) Hyperlipidemia Hypertension Non-ST elevation myocardial infarction (NSTEMI) ([facility]) 03/2014 Osteoarthritis Past Surgical History: Procedure Laterality Date BASAL CELL CARCINOMA EXCISION BUNIONECTOMY CARDIAC CATHETERIZATION Left 01/25/2014 EF 40% CT COLONOSCOPY 11/27/2019 CT COLONOSCOPY No family history on file. Social History Tobacco Use Smoking status: Never Smokeless tobacco: Never Vaping Use Vaping status: Never Used Substance Use Topics Alcohol use: No Drug use: No Outpatient Medications as of 02/15/2024 Medication Sig ascorbic acid, vitamin C, (VITAMIN C) 500 MG tablet Take 1 (one) tablet (500 mg total) by mouth daily . aspirin 81 MG EC tablet Take 1 (one) tablet (81 mg total) by mouth daily . atorvastatin (LIPITOR) 20 MG tablet TAKE 1 TABLET EVERY DAY carvediloL (COREG) 3.125 MG tablet TAKE 1 TABLET TWICE DAILY WITH MEALS docusate sodium (COLACE) 100 MG capsule Take 1 (one) capsule (100 mg total) by mouth 2 (two) times a day . enalapril (VASOTEC) 2.5 MG tablet Take 1 (one) tablet (2.5 mg total) by mouth daily . fexofenadine-pseudoePHEDrine (ELSIE-D 24) 180-240 mg per 24 hr tablet Take 1 (one) tablet by mouth once . furosemide (LASIX) 20 MG tablet Take 1 (one) tablet (20 mg total) by mouth daily as needed (for lower extremity swelling) . multivitamin (THERAGRAN) per tablet Take 1 (one) tablet by mouth daily . naproxen (NAPROSYN) 250 MG tablet Take 1 (one) tablet (250 mg total) by mouth 2 (two) times a day as needed . omeprazole (PRILOSEC) 20 MG capsule Take 1 (one) capsule (20 mg total) by mouth daily . peg 400-propylene glycol 0.4-0.3 % Drop 1 (one) drop . potassium chloride 10 MEQ CR tablet Take 1 (one) tablet (10 mEq total) by mouth daily When taking furosemide 20 mg daily for lower extremity swelling . predniSONE (DELTASONE) 10 MG tablet TAKE 1 TABLET BY MOUTH EVERY DAY NEEDED FOR 3-5 DAYS WITH A FLARE Allergies Allergen Reactions No Known Drug Allergies Review of Systems Constitutional: Negative for chills, decreased appetite, diaphoresis, malaise/fatigue, weight gain and weight loss. HENT: Negative for nosebleeds. Cardiovascular: See HPI Respiratory: Negative for cough, shortness of breath, sleep disturbances due to breathing and snoring. Endocrine: Negative for cold intolerance and heat intolerance. Hematologic/Lymphatic: Does not bruise/bleed easily. Musculoskeletal: Positive for arthritis, joint pain and myalgias. Gastrointestinal: Negative for heartburn, hematemesis, hematochezia, melena, nausea and vomiting. Neurological: Positive for disturbances in coordination. Negative for excessive daytime sleepiness, focal weakness, light-headedness and paresthesias. All other systems reviewed and are negative. Objective: Vitals: BP 124/73 (BP Location: Left arm, Patient Position: Sitting, BP Cuff Size: X-large Adult) Pulse 74 Wt 98 kg (216 lb) SpO2 93% BMI 35.94 kg/m Physical Exam Vitals reviewed. Constitutional: General: She is not in acute distress. Appearance: She is well-developed. HENT: Head: Normocephalic and atraumatic. Nose: Nose (more content not included)... [facility] 01-17-2024 Note [facility] [address] [facility] [address] [facility] [address] Dept: [phone] MD Kristina Ellerel Jemal 78 y.o. female Patient presents with a chief complaint of 1 year follow up ear cleaning Ht 5' 5 Wt 99.2 kg (218 lb 11.2 oz) BMI 36.39 kg/m History of Presenting Illness: The patient/caregiver reports a history of complaint with the following features: She presents fo cerumen removal with hearing aid use. There is no ear pain or discharge reported. Review of systems covering 10 systems is reviewed and pertinent positives and negatives are noted as above. Past Medical History: Diagnosis Date Coronary artery disease GERD (gastroesophageal reflux disease) Hyperlipidemia Hypertension Non-ST elevation myocardial infarction (NSTEMI) ([facility]) 03/2014 Osteoarthritis Current Outpatient Medications: ascorbic acid, vitamin C, (VITAMIN C) 500 MG tablet, Take 1 (one) tablet (500 mg total) by mouth daily ., Disp: , Rfl: aspirin 81 MG EC tablet, Take 1 (one) tablet (81 mg total) by mouth daily ., Disp: , Rfl: atorvastatin (LIPITOR) 20 MG tablet, TAKE 1 TABLET EVERY DAY, Disp: 90 tablet, Rfl: 3 carvediloL (COREG) 3.125 MG tablet, TAKE 1 TABLET TWICE DAILY WITH MEALS, Disp: 180 tablet, Rfl: 3 docusate sodium (COLACE) 100 MG capsule, Take 1 (one) capsule (100 mg total) by mouth 2 (two) times a day ., Disp: , Rfl: enalapril (VASOTEC) 2.5 MG tablet, Take 1 (one) tablet (2.5 mg total) by mouth daily ., Disp: 90 tablet, Rfl: 1 fexofenadine-pseudoePHEDrine (ELSIE-D 24) 180-240 mg per 24 hr tablet, Take 1 (one) tablet by mouth once ., Disp: , Rfl: furosemide (LASIX) 20 MG tablet, Take 1 (one) tablet (20 mg total) by mouth daily as needed (for lower extremity swelling) ., Disp: 90 tablet, Rfl: 3 multivitamin (THERAGRAN) per tablet, Take 1 (one) tablet by mouth daily ., Disp: , Rfl: naproxen (NAPROSYN) 250 MG tablet, Take 1 (one) tablet (250 mg total) by mouth 2 (two) times a day as needed ., Disp: , Rfl: omeprazole (PRILOSEC) 20 MG capsule, Take 1 (one) capsule (20 mg total) by mouth daily ., Disp: , Rfl: peg 400-propylene glycol 0.4-0.3 % Drop, 1 (one) drop ., Disp: , Rfl: potassium chloride 10 MEQ CR tablet, Take 1 (one) tablet (10 mEq total) by mouth daily When taking furosemide 20 mg daily for lower extremity swelling ., Disp: 90 tablet, Rfl: 3 predniSONE (DELTASONE) 10 MG tablet, TAKE 1 TABLET BY MOUTH EVERY DAY NEEDED FOR 3-5 DAYS WITH A FLARE, Disp: , Rfl: Allergies Allergen Reactions No Known Drug Allergies Past Surgical History: Procedure Laterality Date BASAL CELL CARCINOMA EXCISION BUNIONECTOMY CARDIAC CATHETERIZATION Left 01/25/2014 EF 40% CT COLONOSCOPY 11/27/2019 CT COLONOSCOPY Social History Socioeconomic History Marital status: Tobacco Use Smoking status: Never Smokeless tobacco: Never Vaping Use Vaping status: Never Used Substance and Sexual Activity Alcohol use: No Drug use: No Social Determinants of Health Financial Resource Strain: Low Risk (08/10/2023) Received from [facility] Overall Financial Resource Strain (CARDIA) Difficulty of Paying Living Expenses: Not hard at all Received from [facility] Hunger Vital Sign Transportation Needs: No Transportation Needs (08/10/2023) Received from [facility] PRAPARE - Transportation Lack of Transportation (Medical): No Lack of Transportation (Non-Medical): No Physical Activity: Unknown (02/16/2022) Received from [facility] Exercise Vital Sign Days of Exercise per Week: Patient declined Minutes of Exercise per Session: Patient declined Social Connections: Unknown (02/16/2022) Received from [facility] Social Connection and Isolation Panel [NHANES] Frequency of Communication with Friends and Family: Patient declined Frequency of Social Gatherings with Friends and Family: Patient declined Attends Restoration Services: More than 4 times per year Active Member of Clubs or Organizations: Patient declined Attends Club or Organization Meetings: Patient declined Marital Status: History reviewed. No pertinent family history. PHYSICAL EXAM: The patient was examined today 01/17/2024 with findings as follows: CONSTITUTIONAL: General Appearance: well-appearing, nontoxic, alert, no acute distress Communication: normal voicing, hearing intact to spoken voice HEAD/FACE: Head: atraumatic, normocephalic, no lesions Facial Inspection: no lesions, healthy skin Facial Strength: motor strength normal, symmetric strength, symmetric movement EYES: Pupils: PERRLA, extra-ocular movements intact, no nystagmus, sclera white, no redness of eyes, no watering of eyes EARS: Bilateral External Ears: no pits, no tags Right External Ear: normally formed, no lesions, no mastoid tenderness Left External Ear: normally formed, no les (more content not included)... [facility] 01-17-2024 History of Presen t illness Narrative [facility] [address] [facility] [address] [facility] [address] Dept: [phone] Monica Porter MD Felisha Joaquin 78 y.o. female Patient presents with a chief complaint of 1 year follow up ear cleaning Ht 5' 5 Wt 99.2 kg (218 lb 11.2 oz) BMI 36.39 kg/m History of Presenting Illness: The patient/caregiver reports a history of complaint with the following features: She presents fo cerumen removal with hearing aid use. There is no ear pain or discharge reported. Review of systems covering 10 systems is reviewed and pertinent positives and negatives are noted as above. Past Medical History: Diagnosis Date Coronary artery disease GERD (gastroesophageal reflux disease) Hyperlipidemia Hypertension Non-ST elevation myocardial infarction (NSTEMI) ([facility]) 03/2014 Osteoarthritis Current Outpatient Medications: ascorbic acid, vitamin C, (VITAMIN C) 500 MG tablet, Take 1 (one) tablet (500 mg total) by mouth daily ., Disp: , Rfl: aspirin 81 MG EC tablet, Take 1 (one) tablet (81 mg total) by mouth daily ., Disp: , Rfl: atorvastatin (LIPITOR) 20 MG tablet, TAKE 1 TABLET EVERY DAY, Disp: 90 tablet, Rfl: 3 carvediloL (COREG) 3.125 MG tablet, TAKE 1 TABLET TWICE DAILY WITH MEALS, Disp: 180 tablet, Rfl: 3 docusate sodium (COLACE) 100 MG capsule, Take 1 (one) capsule (100 mg total) by mouth 2 (two) times a day ., Disp: , Rfl: enalapril (VASOTEC) 2.5 MG tablet, Take 1 (one) tablet (2.5 mg total) by mouth daily ., Disp: 90 tablet, Rfl: 1 fexofenadine-pseudoePHEDrine (ELSIE-D 24) 180-240 mg per 24 hr tablet, Take 1 (one) tablet by mouth once ., Disp: , Rfl: furosemide (LASIX) 20 MG tablet, Take 1 (one) tablet (20 mg total) by mouth daily as needed (for lower extremity swelling) ., Disp: 90 tablet, Rfl: 3 multivitamin (THERAGRAN) per tablet, Take 1 (one) tablet by mouth daily ., Disp: , Rfl: naproxen (NAPROSYN) 250 MG tablet, Take 1 (one) tablet (250 mg total) by mouth 2 (two) times a day as needed ., Disp: , Rfl: omeprazole (PRILOSEC) 20 MG capsule, Take 1 (one) capsule (20 mg total) by mouth daily ., Disp: , Rfl: peg 400-propylene glycol 0.4-0.3 % Drop, 1 (one) drop ., Disp: , Rfl: potassium chloride 10 MEQ CR tablet, Take 1 (one) tablet (10 mEq total) by mouth daily When taking furosemide 20 mg daily for lower extremity swelling ., Disp: 90 tablet, Rfl: 3 predniSONE (DELTASONE) 10 MG tablet, TAKE 1 TABLET BY MOUTH EVERY DAY NEEDED FOR 3-5 DAYS WITH A FLARE, Disp: , Rfl: Allergies Allergen Reactions No Known Drug Allergies Past Surgical History: Procedure Laterality Date BASAL CELL CARCINOMA EXCISION BUNIONECTOMY CARDIAC CATHETERIZATION Left 01/25/2014 EF 40% CT COLONOSCOPY 11/27/2019 CT COLONOSCOPY Social History Socioeconomic History Marital status: Tobacco Use Smoking status: Never Smokeless tobacco: Never Vaping Use Vaping status: Never Used Substance and Sexual Activity Alcohol use: No Drug use: No Social Determinants of Health Financial Resource Strain: Low Risk (08/10/2023) Received from [facility] Overall Financial Resource Strain (CARDIA) Difficulty of Paying Living Expenses: Not hard at all Received from [facility] Hunger Vital Sign Transportation Needs: No Transportation Needs (08/10/2023) Received from [facility] PRAPARE - Transportation Lack of Transportation (Medical): No Lack of Transportation (Non-Medical): No Physical Activity: Unknown (02/16/2022) Received from [facility] Exercise Vital Sign Days of Exercise per Week: Patient declined Minutes of Exercise per Session: Patient declined Social Connections: Unknown (02/16/2022) Received from [facility] Social Connection and Isolation Panel [NHANES] Frequency of Communication with Friends and Family: Patient declined Frequency of Social Gatherings with Friends and Family: Patient declined Attends Restoration Services: More than 4 times per year Active Member of Clubs or Organizations: Patient declined Attends Club or Organization Meetings: Patient declined Marital Status: History reviewed. No pertinent family history. PHYSICAL EXAM: The patient was examined today 01/17/2024 with findings as follows: CONSTITUTIONAL: General Appearance: well-appearing, nontoxic, alert, no acute distress Communication: normal voicing, hearing intact to spoken voice HEAD/FACE: Head: atraumatic, normocephalic, no lesions Facial Inspection: no lesions, healthy skin Facial Strength: motor strength normal, symmetric strength, symmetric movement EYES: Pupils: PERRLA, extra-ocular movements intact, no nystagmus, sclera white, no redness of eyes, no watering of eyes EARS: Bilateral External Ears: no pits, no tags Right External Ear: normally formed, no lesions, no mastoid tenderness Left External Ear: normally formed, no lesions, no mastoid tenderness Right External Auditory Canal: normal, healthy skin, obstructing cerumen, no discharge Left External Auditory Canal: normal, healthy skin, obstructing cerumen, no discharge Right Tympanic Membrane: normal landmarks, translucent Left Tympanic Membrane: normal landmarks, translucent Hearing: intact to spoken voice NECK: Neck: no masses, trachea midline, normal range of motion, no cysts or pits, no tenderness to palpation LYMPH NODES: Cervical: no palpable lymph node enlargement SKIN: General Appearance: no lesions, warm and dry, normal turgor, no bruising PSYCHIATRIC: Mood and affect: normal mood, normal affect CERUMEN REMOVAL PROCEDURE NOTE ([id number]) PROCEDURE PERFORMED BY: Monica Porter MD, MD PROCEDURE DATE: 01/17/2024 With the patient and/or caregiver's consent, the patient is positioned in the exam chair and an otic speculum placed into the right ear canal. Under binocular microscopic visualization there is noted to be cerumen filling the lateral canal. This is then removed with a right angle hook revealing a healthy tympanic membrane without evidence of middle ear effusion or perforation. On the left, a similar finding is noted and procedure completed. The patient tolerated the procedure well without complication. Assessment and Plan: Her obstructing cerumen is removed. No middle ear disease is noted. Her hearing loss is corrected with hearing aids which she reports are working well for her. 1. Bilateral impacted cerumen 2. Sensorineural hearing loss, bilateral Return in about 1 year (around 01/16/2025). The patient and/or caregiver is to notify the office if no improvement or worsening of symptoms is noted prior to the scheduled follow-up for sooner evaluation. The patient and/or caregiver is able to state an understanding of these recommendations and is agreeable to the treatment plan. --Monica Porter MD on 01/17/2024 at 9:27 AM An electronic signature was used to authenticate this note. Review of Systems Constitutional: Negative. HENT: Positive for tinnitus. Eyes: Negative. Respiratory: Negative. Cardiovascular: Negative. Gastrointestinal: Negative. Endocrine: Negative. Genitourinary: Negative. Musculoskeletal: Negative. Skin: Negative. Allergic/Immunologic: Negative. Neurological: Negative. Hematological: Negative. Psychiatric/Behavioral: Negative. documented in this encounter [facility] 01-05-2024 History of Presen t illness Narrative Chief Complaint Patient presents with Right Shoulder - Follow-up TS-everse DOS: 08/10/23 (5 months) Xrays today History of Present Illness Felisha is an 78-year-old female presenting today for follow-up after right reverse total shoulder arthroplasty for proximal humerus fracture. Patient denies any pain at this time. States she has continued working with physical therapy which has improved her range of motion however she is still limited compared to her contralateral side. Denies any numbness tingling or shortness of breath. Exam Minimal swelling Incision well healed Normal sensation over deltoid Active forward flexion 0-110 Active abduction 0 to 85 degrees Neurovascular exam normal distally Diagnostics 3 view right shoulder radiographs were ordered, performed, interpreted today. Status post reverse total shoulder arthroplasty for proximal humerus fracture. Hardware is maintained in appropriate position. No evidence of periprosthetic fracture or lucency. No other acute osseous abnormality appreciated XR shoulder right 2+ views Result Date: 11/13/2023 Interpreted By: Lacy Montoya, STUDY: Right shoulder 3 views. INDICATION: Signs/Symptoms:pain. COMPARISON: 09/24/2023. ACCESSION NUMBER(S): [id number] ORDERING CLINICIAN: INDIRA LEVY FINDINGS: Patient is status post right reverse total shoulder arthroplasty for proximal humeral fracture. Hardware is intact without perihardware fractures or lucencies. No malalignment. 1. Right reverse total shoulder arthroplasty without hardware complication. Signed by: Lacy Montoya 11/13/2023 9:51 AM Dictation workstation: [id number] Assessment Patient status post right reverse total shoulder arthroplasty for fracture, 5 months out Plan Continue physical therapy strengthening and conditioning aimed at improving range of motion. Discussed activity restrictions. Follow-up at 1 year operative anniversary XR at follow up 3views Shoulder Grashey, Axillary, Scap Y Vinh Guadarrama PA-C In a face to face encounter, I evaluated the patient and performed a physical examination, discussed pertinent diagnostic studies if indicated and discussed diagnosis and management strategies with both the patient and physician early childhood teacher assistant / nurse practitioner. I reviewed the PA/MANAGER CAR's note and agree with the documented findings and plan of care. Indira Levy III, MD documented in this encounter [facility] Work Phone: 01-03-2024 History of Presen t illness Narrative Images from the original note were not included. S/p R ulna distal darrach, small +ring finger extensor tendon transfer, extensor tenosynovectomy 10/07/2023. Doing very well. Denies pain. Denies numbness and tingling. Feels strength is improving. She has noticed a slight increase in the lag to the small finger as her flexion improves. Physical Examination: The patient appears to be their stated age, is in no apparent distress, and is oriented x3. The patients mood and affect are appropriate. The patients gait is normal. The examination of the limb in question was performed in comparison to the contralateral limb. Incision well-healed. No pain to the distal ulna stump. Fingers resting in extension. With the wrist held in extension and MCPs at neutral she is able to extend the index long ring and small. Additionally good flexion of the PIPs. 0 cm tip to palm distance of all fingers. She does have 20 degree lag of ring finger in relation to long . 15 degree lag present to the small finger. AIN, PIN, ulnar intact SILT A/R/U/M Hand wwp Assessment: 3 months post op Plan: Discontinue weightbearing restriction. Okay to progress weight-bear as tolerated. She has a brace that she wears at night to help improve MCP extension of the small and ring finger. She can continue this. Overall very satisfied with result. She does have appointment with land inspector scheduled for next week. Follow-up in 3 months for clinical check Maryam Levy MD documented in this encounter [facility] Work Phone: 12-13-2023 Note HNO ID: [id number] Author: GUERDA GUERRERO MA Service: ? Author Type: Quarter Inspector Type: Progress Notes Filed: 12/13/2023 14:25 Note Text: POPULATION HEALTH NAVIGATION OUTREACH Action/FYI msg to schedule wellness, hcc gap closure Reason for Outreach Care Gap/HCC or Scheduling Wellness Visits Care Gaps due: Medicare Annual Wellness Visit Patient Contacted: Unable or unnecessary to reach patient: Unable to leave message [employer] message sent HCC related Navigation Signature: Guerda Guerrero MA December 13, 2023 2:24 PM [facility] 12-13-2023 History of Presen t illness Narrative POPULATION HEALTH NAVIGATION OUTREACH Action/FYI msg to schedule wellness, hcc gap closure Reason for Outreach Care Gap/HCC or Scheduling Wellness Visits Care Gaps due: Medicare Annual Wellness Visit Patient Contacted: Unable or unnecessary to reach patient: Unable to leave message [employer] message sent HCC related Navigation Signature: Guerda Guerrero MA December 13, 2023 2:24 PM documented in this encounter [facility] 12-13-2023 Note Patient Outreach (NE TNAV) FELISHA JOAQUIN ([id number]) 1945 F Date Time Provider Department 12/13/23 GUERDA GUERRERO During your visit today, we recorded the following information about you: Guerda Guerrero MA 12/13/2023 2:25 PM Signed POPULATION HEALTH NAVIGATION OUTREACH Action/FYI msg to schedule wellness, hcc gap closure Reason for Outreach Care Gap/HCC or Scheduling Wellness Visits Care Gaps due: Medicare Annual Wellness Visit Patient Contacted: Unable or unnecessary to reach patient: Unable to leave message [employer] message sent HCC related Navigation Signature: Guerda Guerrero CLARK December 13, 2023 2:24 PM Allergies As of Date: 12/13/2023 (No Known Allergies) Date Reviewed: 09/28/2023 Reviewed by: Chyna Grimm APRN.VEGETABLE PREPARER - Fully Assessed Reason for Visit: Population Health Navigation Outreach [3910] Cmt: Fantasma enriquez Prescriptions as of 12/13/2023 - furosemide (LASIX) 40 mg tablet Take 1 tablet by mouth once daily. - pantoprazole DR (PROTONIX) 40 mg tablet Take 1 tablet by mouth once daily. - prednisoLONE acetate (PRED FORTE, ECONOPRED PLUS) 1 % ophthalmic suspension Use 1 Drop in the right eye four times daily. - ketorolac (ACULAR) 0.5 % ophthalmic solution Use 1 Drop in the right eye four times daily. - docusate sodium (STOOL SOFTENER) 100 mg capsule Take 1 capsule by mouth twice daily. - Fexofenadine-Pseudoephedrine (ELSIE-D 24 HOUR) 180-240 mg per 24 hr tablet Take 1 tablet by mouth once daily as needed (sinus/cold symptoms). - KLOR-CON 10 10 mEq tablet - Naproxen SR (EC-NAPROSYN) 500 mg EC tablet Take 1 tablet by mouth twice daily as needed. - enalapril (VASOTEC) 2.5 mg tablet Take 2.5 mg by mouth once daily. - atorvastatin (LIPITOR) 20 mg tablet Take 1 tablet by mouth once daily. For cholesterol. - carvedilol (COREG) 3.125 mg tablet Take 1 tablet by mouth twice daily. - aspirin, enteric coated 81 mg EC tablet Take 81 mg by mouth once daily. - ascorbic acid, vitamin C, (VITAMIN C) 500 mg tablet Take 500 mg by mouth once daily. 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] 02/07/2016 Visual field loss [H53.40] 03/20/2016 Dry eye syndrome [H04.129] 04/07/2016 Combined forms of age-related cataract of both *04/07/2016 Vitreous floaters of both eyes [H43.393] 04/07/2016 Punctate keratitis, bilateral [H16.143] 01/27/2017 Obesity, Class III, BMI 40-49.9 (morbid obesity*09/06/2017 Epiretinal membrane (ERM) of both eyes [H35.373]10/13/2019 Essential hypertension [I10] 10/13/2019 Hemangioma of eyelid [D18.01] 10/13/2019 Status post cataract extraction and insertion o*01/19/2020 Status post cataract extraction and insertion o*01/19/2020 Dyslipidemia [E78.5] 02/17/2022 Fatigue [R53.83] 02/17/2022 Vitamin D deficiency [E55.9] 02/17/2022 Medicare annual wellness visit, subsequent [Z00*02/17/2022 Encounter Status:Closed by GUERDA GUERRERO on 12/13/23 [facility] 11-12-2023 History of Presen t illness Narrative Chief Complaint Patient presents with Right Shoulder - Follow-up TS-Reverse DOS: 08/10/23 (13 weeks out) Xrays today History of Present Illness Felisha is AN 78-year-old female presenting today for follow-up after right shoulder reverse total shoulder arthroplasty. Patient denies any pain at this time. States she has worked with physical therapy which has improved her range of motion however she is still limited compared to her contralateral side. Denies any numbness tingling or shortness of breath. Exam Minimal swelling Incision well healed Normal sensation over deltoid Passive forward flexion 0 to 90 degrees, Active forward flexion 0-80 Passive abduction 0 to 90 degrees, active abduction 0 to 50 degrees Neurovascular exam normal distally XR shoulder right 2+ views Result Date: 11/13/2023 Interpreted By: Lacy Montoya, STUDY: Right shoulder 3 views. INDICATION: Signs/Symptoms:pain. COMPARISON: 09/24/2023. ACCESSION NUMBER(S): [id number] ORDERING CLINICIAN: INDIRA LEVY FINDINGS: Patient is status post right reverse total shoulder arthroplasty for proximal humeral fracture. Hardware is intact without perihardware fractures or lucencies. No malalignment. 1. Right reverse total shoulder arthroplasty without hardware complication. Signed by: Lacy Montoya 11/13/2023 9:51 AM Dictation workstation: [id number] Assessment Patient status post right reverse total shoulder arthroplasty for fracture, 13 weeks out Plan Continue physical therapy aimed at improving range of motion. Will advance to active range of motion as well as light conditioning Discussed activity restrictions. Follow-up 2 months XR at follow up 3views Shoulder Grashey, Axillary, Scap Y Vinh Guadarrama PA-C In a face to face encounter, I evaluated the patient and performed a physical examination, discussed pertinent diagnostic studies if indicated and discussed diagnosis and management strategies with both the patient and physician early childhood teacher assistant / nurse practitioner. I reviewed the PA/MANAGER CAR's note and agree with the documented findings and plan of care. Indira Levy III, MD documented in this encounter [facility] Work Phone: 11-10-2023 Miscellaneous Notes Pat from the [facility] calling and states pt was referred to them. Pat states she is in need of patient's demographics sheet and Medicare card. The one they received is black and unable to read it. Demographics sheet and copy of [employer] Medicare card faxed to [phone]. documented in this encounter [facility] 11-10-2023 Telephone encounter Note Pat from the [facility] calling and states pt was referred to them. Pat states she is in need of patient's demographics sheet and Medicare card. The one they received is black and unable to read it. Demographics sheet and copy of [employer] Medicare card faxed to [phone]. [facility] 10-27-2023 Telephone encounter Note Referral faxed Nicci Merino MA [facility] 10-27-2023 Miscellaneous Notes Referral faxed Nicci Merino MA documented in this encounter [facility] 10-19-2023 History of Presen t illness Narrative Images from the original note were not included. S/p R ulna distal darrach, small +ring finger extensor tendon transfer, extensor tenosynovectomy. Doing very well. Denies pain. Denies numbness and tingling. Physical Examination: The patient appears to be their stated age, is in no apparent distress, and is oriented x3. The patients mood and affect are appropriate. The patients gait is normal. The examination of the limb in question was performed in comparison to the contralateral limb. Dressing removed Incision c/d/I Fingers resting in extension. With the wrist held in extension and MCPs at neutral she is able to extend the index long ring and small. Additionally good flexion of the PIPs. AIN, PIN, ulnar intact SILT A/R/U/M Hand wwp Assessment: 2 weeks post op Plan: We have placed her back into a splint today. She is calling to establish occupational therapy closer to home. I would like to her to remain in splint until she sees occupational therapist. EULOGIO MENEZES. 2 weeks post op ? The therapist will fabricate a forearm?based orthosis with the MCP joints positioned in full extension and the IP joints are free. Include the adjacent fingers in the orthosis for stability. For the long finger, include all fingers in the orthosis. ? The orthosis is to be worn at all times. The orthosis may be removed for hygiene purposes and to perform the exercise program. ? The therapist will instruct proper skin care to prevent skin breakdown. The skin should be completely dry before re?applying the orthosis. ? Instruct the patient to begin active range of motion exercises of the fingers (Hook Sensitizer). The Hook Sensitizer allows for flexion of the IP joints while maintaining MCP joint extension. This exercise should be performed for 25 repetitions every 2 hours while awake. ? Instruct the patient to begin active place?and?hold extension exercises for the MCP joints. Passively extend the fingers into full extension. Then ask the patient to maintain that position. This exercise should be performed for 10 repetitions every 2 hours while awake. ? Educate the patient on anti?edema management. This includes, but not limited to, self? retrograde massage, cold therapy, and extremity elevation. The anti?edema management will continue for several weeks. 4 weeks post op Instruct the patient to begin full flexion composite active range of motion exercises. Isolate the EIP and EDM when the index and small fingers are involved. This exercise should be performed for 25 repetitions every 2 hours while awake. 6 weeks post op Instruct the patient to begin passive range of motion exercises. ? The wearing time in the extension gutter orthosis should be gradually reduced 1?2 hours each day. It is expected that the patient is completely out of the orthosis within 7?10 days 8 weeks post op Progressive strengthening program Maryam Levy MD documented in this encounter [facility] Work Phone: 10-13-2023 Note HNO ID: [id number] Author: GUERDA GUERRERO MA Service: ? Author Type: Quarter Inspector Type: Progress Notes Filed: 10/13/2023 11:23 Note Text: POPULATION HEALTH NAVIGATION OUTREACH Action/FYI msg to schedule wellness, hcc gap closure Reason for Outreach Care Gap/HCC or Scheduling Wellness Visits Care Gaps due: Medicare Annual Wellness Visit Patient Contacted: Unable or unnecessary to reach patient: Left message [employer] message sent HCC related Navigation Signature: Guerda Guerrero MA October 13, 2023 11:23 AM [facility] 10-13-2023 History of Presen t illness Narrative POPULATION HEALTH NAVIGATION OUTREACH Action/FYI msg to schedule wellness, hcc gap closure Reason for Outreach Care Gap/HCC or Scheduling Wellness Visits Care Gaps due: Medicare Annual Wellness Visit Patient Contacted: Unable or unnecessary to reach patient: Left message [employer] message sent HCC related Navigation Signature: Guerda Guerrero MA October 13, 2023 11:23 AM documented in this encounter [facility] 10-13-2023 Note Patient Outreach (NE FLOAV) FELISHA JOAQUIN ([id number]) 1945 F Date Time Provider Department 10/13/23 GUERDA GUERRERO During your visit today, we recorded the following information about you: Gureda Guerrero MA 10/13/2023 11:23 AM Signed POPULATION HEALTH NAVIGATION OUTREACH Action/I msg to schedule wellness, hcc gap closure Reason for Outreach Care Gap/HCC or Scheduling Wellness Visits Care Gaps due: Medicare Annual Wellness Visit Patient Contacted: Unable or unnecessary to reach patient: Left message [employer] message sent HCC related Navigation Signature: Guerda Guerrero MA October 13, 2023 11:23 AM Allergies As of Date: 10/13/2023 (No Known Allergies) Date Reviewed: 09/28/2023 Reviewed by: Chyna Grimm APRN.VEGETABLE PREPARER - Fully Assessed Reason for Visit: Population Health Navigation Outreach [3910] Cmt: Fantasma enriquez Prescriptions as of 10/13/2023 - furosemide (LASIX) 40 mg tablet Take 1 tablet by mouth once daily. - pantoprazole DR (PROTONIX) 40 mg tablet Take 1 tablet by mouth once daily. - prednisoLONE acetate (PRED FORTE, ECONOPRED PLUS) 1 % ophthalmic suspension Use 1 Drop in the right eye four times daily. - ketorolac (ACULAR) 0.5 % ophthalmic solution Use 1 Drop in the right eye four times daily. - docusate sodium (STOOL SOFTENER) 100 mg capsule Take 1 capsule by mouth twice daily. - Fexofenadine-Pseudoephedrine (ELSIE-D 24 HOUR) 180-240 mg per 24 hr tablet Take 1 tablet by mouth once daily as needed (sinus/cold symptoms). - KLOR-CON 10 10 mEq tablet - Naproxen SR (EC-NAPROSYN) 500 mg EC tablet Take 1 tablet by mouth twice daily as needed. - enalapril (VASOTEC) 2.5 mg tablet Take 2.5 mg by mouth once daily. - atorvastatin (LIPITOR) 20 mg tablet Take 1 tablet by mouth once daily. For cholesterol. - carvedilol (COREG) 3.125 mg tablet Take 1 tablet by mouth twice daily. - aspirin, enteric coated 81 mg EC tablet Take 81 mg by mouth once daily. - ascorbic acid, vitamin C, (VITAMIN C) 500 mg tablet Take 500 mg by mouth once daily. 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] 02/07/2016 Visual field loss [H53.40] 03/20/2016 Dry eye syndrome [H04.129] 04/07/2016 Combined forms of age-related cataract of both *04/07/2016 Vitreous floaters of both eyes [H43.393] 04/07/2016 Punctate keratitis, bilateral [H16.143] 01/27/2017 Obesity, Class III, BMI 40-49.9 (morbid obesity*09/06/2017 Epiretinal membrane (ERM) of both eyes [H35.373]10/13/2019 Essential hypertension [I10] 10/13/2019 Hemangioma of eyelid [D18.01] 10/13/2019 Status post cataract extraction and insertion o*01/19/2020 Status post cataract extraction and insertion o*01/19/2020 Dyslipidemia [E78.5] 02/17/2022 Fatigue [R53.83] 02/17/2022 Vitamin D deficiency [E55.9] 02/17/2022 Medicare annual wellness visit, subsequent [Z00*02/17/2022 Encounter Status:Closed by GUERDA GUERRERO on 10/13/23 [facility] 10-06-2023 Hospital Discharg e instructions Maryam Lugo MD - 10/06/2023 11:[address] Levy Upper Extremity SURGERY Post Operative Instructions Maryam Levy MD Dressing You have a bulky dressing on your arm. Do NOT remove dressing until next appointment with Dr. Levy or Occupational Therapy (OT). Please call Dr. Levy's office if an appointment is not already arranged. If you experience persistent numbness, tingling or burning sensation in your hand, it may be due to a cast or surgical dressing that is too tight. Keep your hand elevated, and if this does not resolve the problem, call your doctor immediately. If your dressing, splint, or cast gets wet, contact your physician s office. Activity If pain will allow, try to flex and extend the fingers on the operated hand. The dressing and swelling may cause the fingers to be stiff and this is common. If the fingers turn blue, purple, or remain numb after the block has worn off, call the office immediately. Showering You may shower as soon as you want after surgery. Please cover the dressing with a bag. If you are allowed to remove your dressing, you may shower and get the wound wet after you have been told it is safe to remove your dressing. You may allow the water to run over the incisions and pat the incision dry. DO NOT let the wound soak in a tub, pool, or dish water. If you are using a band aid to cover your incision after a shower, make sure the incision is completely dry. Ice & Elevate The use of ice on your arm/hand after surgery will help with both pain control and swelling. Continue with icing your arm/hand for the first 48 hours after surgery. It can take a while for the coolness of the ice to get through the splint/cast, but be patient, it will work. Thereafter, use it on an as needed basis. Elevate your hand above your heart level as much as possible for the first 48 hours, even while walking. This will keep the swelling to a minimum and prevent throbbing and pain. Elevation reduces swelling and minimizes pain. Less swelling is associated with a lower infection rate, fewer wound complications, less post-operative stiffness, and more rapid recovery of function. To keep the swelling down, your hand must be kept above the level of your heart. One common mistake people make is they will put pillows or blankets under their elbow while sitting or laying down. Please always keep the hand above the elbow and move your fingers as much as possible! Swelling tends to collect in the lowest part of the body so if your hand is below the rest of your arm, your fingers and hand will swell and become stiff. Pain Medication If you received a regional anesthetic block your arm and hand may be numb for several hours (6-24 hours). You will be discharged from the surgery center to home with an oral pain medication (analgesic). Rest and elevation is still one of the most important factors for pain control. Take your pain medication as directed even though the pain is minimal with the block; do not wait for the pain to become out of control. The most severe pain occurs as the block wears off. Even if you are not having pain but feel the arm and hand waking up , take your pain medication so that it will be working when needed. DO NOT drink alcoholic beverages or smoke while taking your pain medications. DO NOT drive a car or other vehicle or operate any machinery while under the influence of your medication. It is important NOT TO WAIT until your pain is severe before taking your medication since the medications often take an hour or longer before you will begin to feel some relief. Take the medication as soon as you experience even mild pain the first night after surgery. Usually by the second or third day after surgery your upper extremity will begin to feel better and you will require much less pain medication. Prescription refills will only be addressed during normal business hours. Narcotic refills will not be addressed after hours or on weekends as the physician alteration specialist does not have access to your medical records. Side Effects: All pain medications can cause nausea, vomiting, and/or constipation. It is best to take pain medication with food. If these problems become significant, please contact our office. Have a phone number for your pharmacy available. Diet Eat light the day of surgery and resume normal diet tomorrow. Increase your fluid intake due to pain medications Driving It is not advisable to drive a vehicle while you are on pain medication, due to the possible side effects. However, once you are off pain medication and you feel that you are able to safely control the vehicle, you may drive. Warning Signs Fever: A low-grade fever (less than 101 degrees) following surgery and lasting for several days is quite common. You may even have some slight chills and sweating. If you have a low-grade fever you should make an effort to cough and breathe deeply to clear congestion from your lungs. After hospital discharge, call your physician if you experience: Increasing or foul smelling drainage (after the first 24 hours) Increasing redness and/or pain to surgery site. As well as new onset fevers and or chills. These could signify an infection. If any of the above occurs, please notify Dr. Levy's office. Follow-up Appointments We are interested in your prompt and complete recovery from surgery. If you have any problems or questions concerning your recovery, please call your doctor s office. Your doctor s office can be called Wednesday --Wednesday, 8:00 am to 5:00 pm. You should already have an appointment to see Dr. Levy within the next few weeks. If you do not have this appointment, or need to change your appointment time, please contact our office. Do not hesitate to call with any questions or concerns. Dr. Levy's office numbers are: 1) During normal business hours, 8AM to 5PM Wednesday through Wednesday, please call: [phone] 2) After hour emergencies can be directed to the physician alteration specialist at [phone] Frequently Asked Questions Patients often have similar questions after surgery. To help reduce unnecessary worry and stress after your surgery, we have answered some of your commonly asked questions. What should I do if I see blood on my bandages? Many patients bleed through their bandages after surgery. Do not let this alarm you. Please do not remove the initial bandage since this it is sterile and we want to maintain cleanliness around the wound until we change the dressing. When can I shower or bathe? Often we will keep a snug compression bandage on your arm for several weeks after surgery. You should not get this bandage wet. If the bandage should become wet, it will need to be changed. Keep your arm dry until the bandage is removed for good. Therefore, sponge baths are the recommended body cleansing method. Information regarding shower cast protectors is available at your surgeon s office. Glad brand Press'n Seal is also a good, lower cost option for keeping your dressing dry while bathing. What should I do if the bandages come off? The bandages are placed in a very specific fashion. If the bandages are removed or come off, please place a sterile gauze wrap over the incisions. We should see you in the office the following day to replace your bandage. When will the numbness that I feel in my hand wear off? We usually numb your arm during surgery. Sometimes it takes up to 24 hours for the numbness to go away. You may continue to have some numbness in your fingers after this time because the nerves can be slightly bruised during surgery. What do I do about swelling around my fingers and behind my bandage? All patients have a significant amount of swelling around their bandage and hand after surgery. This swelling will last for several months. After surgery you should elevate your hand higher than your heart to decrease swelling. This is particularly critical for several days after surgery while your incision is healing. Once the wound is healed, the swelling will not harm your surgery. If you are concerned about a significant amount of swelling or redness, please call for an appointment. You should also try to move your free fingers (not those in the dressing) as much as possible to avoid stiffness and swelling. How can I tell if an infection is developing in my upper extremity? Many patients will have a slight drainage of yellowish fluid for 1 to 2 weeks after surgery. This does not mean that your hand/arm is infected. Severe wound infections usually occur from 5 to 10 days after surgery. If you notice extreme swelling, increased pain, or extreme redness, please contact us immediately. Usually if we treat an infection early with antibiotics, future surgery can be avoided. What should I do if I experience nausea or vomiting due to the pain medications I am taking? Many patients have nausea after surgery when taking pain medications. If the nausea and vomiting are severe, we will need to prescribe medication in an oral dissolving or suppository form. When will the stitches be removed? We usually remove the stitches at approximately 1 to 2 weeks after surgery. If you miss your appointment because of an emergency, do not be alarmed because the stitches can remain in place for many weeks without causing harm. My arm itches under the cast/splint, is there anything I can do? Whatever you do, do NOT stick any objects under your dressing to scratch your arm! I have seen pen caps and other objects get stuck under the cast and the patient is too embarrassed to come in, so we discover the pen cap or other items under the cast a few weeks later and it has dug into the skin making an ulcer/wound in the patient's skin. Using ice packs on your arm (the cold takes a long time to penetrate the thick dressing) or a chairman set to the cool setting to blow cool air down the splint/cast to help alleviate itching. documented in this encounter [facility] Work Phone: 10-06-2023 Telephone encounter Note Note faxed Nicci Merino MA [facility] 10-06-2023 Miscellaneous Notes Note faxed Nicci Merino MA 09/27 note addended. Chyna Grimm APRN.CRESENCIO Called and spoke with nurse at [facility] office and office note from 09/27 needs to state pt is cleared for surgery. No pre-op forms. Nicci Merino MA Left detailed message on [employer] to fax pre-op form to [phone]. Nicci Merino MA Attempted to contact office number but other line busy. Will need to try again. Nicci Merino MA Please obtain surgery clearance forms from patient's surgery office. Chyna Grimm APRN.CRESENCIO documented in this encounter [facility] 10-05-2023 Telephone encounter Note 09/27 note addended. Chyna Grimm APRN.CNP [facility] 10-05-2023 Telephone encounter Note Called and spoke with nurse at [facility] office and office note from 09/27 needs to state pt is cleared for surgery. No pre-op forms. Nicci Merino MA [facility] 10-04-2023 Note Formatting of this n ote might be different from the original. Reviewed medical history and current medications. NPO after midnight. Aware to take Carvedilol morning of procedure with a sip of water. Patient verbalized understanding. [facility] Work Phone: 10-04-2023 Miscellaneous Notes Reviewed medical history and current medications. NPO after midnight. Aware to take Carvedilol morning of procedure with a sip of water. Patient verbalized understanding. documented in this encounter [facility] Work Phone: 09-30-2023 Telephone encounter Note Left detailed message on [employer] to fax pre-op form to [phone]. Nicci Merino MA [facility] 09-28-2023 Telephone encounter Note Attempted to contact office number but other line busy. Will need to try again. Nicci Merino MA [facility] 09-28-2023 Telephone encounter Note Pt informed, verbalized understanding. Nicci Merino MA [facility] 09-28-2023 Miscellaneous Notes Pt informed, verbalized understanding. Nicci Merino MA I would like her to increase her dose to 40mg daily. If she has 20mg tabs still, ok to take 2 of these. She should have her potassium level checked in a week, prior to her surgery. I've placed the order for this. The following approved medication requests have been transmitted electronically. Requested Prescriptions Signed Prescriptions Disp Refills furosemide (LASIX) 40 mg tablet 90 tablet 0 Sig: Take 1 tablet by mouth once daily. Authorizing Provider: CHYNA GRIMM APRN.CNP Patient calls stating that she was to confirm that she is taking furosemide 20 mg daily. She did ask that if she is to continue with this daily she would like a 90 day supply sent to [facility]. documented in this encounter [facility] 09-28-2023 Telephone encounter Note I would like her to increase her dose to 40mg daily. If she has 20mg tabs still, ok to take 2 of these. She should have her potassium level checked in a week, prior to her surgery. I've placed the order for this. The following approved medication requests have been transmitted electronically. Requested Prescriptions Signed Prescriptions Disp Refills furosemide (LASIX) 40 mg tablet 90 tablet 0 Sig: Take 1 tablet by mouth once daily. Authorizing Provider: CHYNA GRIMM APRN.CNP [facility] 09-28-2023 Telephone encounter Note Patient calls stating that she was to confirm that she is taking furosemide 20 mg daily. She did ask that if she is to continue with this daily she would like a 90 day supply sent to [facility]. [facility] 09-28-2023 Telephone encounter Note Please obtain surgery clearance forms from patient's surgery office. Chyna Grimm APRN.CNP [facility] 09-28-2023 Instructions Chyna Grimm APRN.CNP - 09/28/2023 7:28 AM EDT Call the office today and let us know what dose of the furosemide you're taking. Schedule with rheumatology. documented in this encounter [facility] 09-28-2023 Note HNO ID: [id number] Author: CHYNA GRIMM APRN.CNP Service: ? Author Type: Nurse Practitioner Type: Progress Notes Filed: 10/05/2023 16:52 Note Text: Chief Complaint Patient presents with: Pre-Op Exam: Tendon repair right hand on 10/06. Swelling in bita legs. HPI Felisha Joaquin is a 78 year old female who presents here today for Above Complaints.. Is having right hand tendon repair on 10/[address] Maryam Levy. Had surgery on 08/10/2023 and this went well. Requesting preop exam for repair of her right shoulder. Surgery is scheduled at [facility] on 08/09. Has never had difficulty with anesthesia or difficult intubation. Denies CP, dizziness, SOB. Overall feels good except her arm. Is taking an ibuprofen rx for pain, this is helpful. Very difficult to dress and undress, bathe, all ADLs. Daughter is able to help with things she is unable to do. Has had 2 colonoscopies and wakes up with them. Had knee surgery and was able to feel the sawing. States she may need a little extra for sedation. Has swelling to both of her lower legs, this is chronic. Right is worse than left. Has been going on, on a little bit of a worse scale for a few months. Isn't necessarily painful. Thinks she has this because she's not very active. Has furosemide at home prom an old previous rx that she has been taking prn-this is not on her medication list-she does not know the dose. Has been taking it regularly for the past month with some temporary improvement. Past medical history, appointments, medications, allergies reviewed. Previous Medical History PAST MEDICAL HISTORY Diagnosis Date Acid reflux Arrhythmia Arthritis Coronary artery disease Does use hearing aid Heart attack (HCC) Hypertension Osteopenia 07/2013 left hip on DEXA Rash of face S/P YAG capsulotomy, left 08/12/2022 Seasonal allergies Snoring Previous Surgical History PAST SURGICAL HISTORY Procedure Laterality Date COLONOSCOPY 2006 small polyp COLONOSCOPY FLX DX W/COLLJ SPEC WHEN PFRMD 08/02/14 Colonoscopy COLONOSCOPY FLX DX W/COLLJ SPEC WHEN PFRMD 11/27/2019 Colonoscopy ESOPHAGOGASTRODUODENOSCOPY TRANSORAL DIAGNOSTIC 11/27/2019 EGD PAST SURGICAL HISTORY OF 01/2013 left TKA PAST SURGICAL HISTORY OF 07/2012 right TKA PAST SURGICAL HISTORY OF 2006 ORIF wrist, right PAST SURGICAL HISTORY OF 2002 meniscectomy right knee XCAPSL CTRC RMVL INSJ IO LENS PROSTH W/O ECP Right 01/04/2020 Cataract Extraction with PC IOL 21.5 D XCAPSL CTRC RMVL INSJ IO LENS PROSTH W/O ECP Left Cataract Extraction with PC IOL 21.0 D Family History FAMILY HISTORY Problem Relation Age of Onset Arthritis Mother Heart Mother Hypertension Mother Arthritis Father Heart Father Hypertension Father Cancer Sister Breast Cancer Sister 56 No Ocular Disease No Family History Diabetes No Family History Patient Allergies ALLERGIES No Known Allergies Current Medications Current Outpatient Medications on File Prior to Visit Medication Sig pantoprazole DR (PROTONIX) 40 mg tablet Take 1 tablet by mouth once daily. prednisoLONE acetate (PRED FORTE, ECONOPRED PLUS) 1 % ophthalmic suspension Use 1 Drop in the right eye four times daily. ketorolac (ACULAR) 0.5 % ophthalmic solution Use 1 Drop in the right eye four times daily. docusate sodium (STOOL SOFTENER) 100 mg capsule Take 1 capsule by mouth twice daily. Fexofenadine-Pseudoephedrine (ELSIE-D 24 HOUR) 180-240 mg per 24 hr tablet Take 1 tablet by mouth once daily as needed (sinus/cold symptoms). KLOR-CON 10 10 mEq tablet Naproxen SR (EC-NAPROSYN) 500 mg EC tablet Take 1 tablet by mouth twice daily as needed. enalapril (VASOTEC) 2.5 mg tablet Take 2.5 mg by mouth once daily. atorvastatin (LIPITOR) 20 mg tablet Take 1 tablet by mouth once daily. For cholesterol. carvedilol (COREG) 3.125 mg tablet Take 1 tablet by mouth twice daily. aspirin, enteric coated 81 mg EC tablet Take 81 mg by mouth once daily. ascorbic acid, vitamin C, (VITAMIN C) 500 mg tablet Take 500 mg by mouth once daily. No current facility-administered medications on file prior to visit. Social History Social History Tobacco Use Smoking status: Never Smokeless tobacco: Never Vaping Use Vaping Use: Never used Substance Use Topics Alcohol use: No Drug use: Never Review of Symptoms REVIEW OF SYSTEMS See HPI, otherwise negative EXAM: BP 136/82 (BP Site: Left Arm, BP Position: Sitting, BP Cuff Size: Regular Adult) Pulse 78 Resp 18 Wt 105 kg (231 lb 6.4 oz) SpO2 94% BMI 39.72 kg/m? General Appearance: Well appearing, alert, in no acute distress, well-hydrated, well nourished.. Ears: External ears normal, canals clear. Nose/Sinuses: Nares normal, septum midline, mucosa normal, no drainage or sinus tenderness. Oropharynx: Lips, mucosa, and tongue normal, teeth and gums normal, oropharynx normal. Neck: Supple, no adenopathy; thyroid symm (more content not included)... [facility] 09-28-2023 History of Presen t illness Narrative Chief Complaint Patient presents with: Pre-Op Exam: Tendon repair right hand on 10/06. Swelling in bita legs. HPI Felisha Joaquin is a 78 year old female who presents here today for Above Complaints.. Is having right hand tendon repair on 10/[address] Maryam Levy. Had surgery on 08/10/2023 and this went well. Requesting preop exam for repair of her right shoulder. Surgery is scheduled at [facility] on 08/09. Has never had difficulty with anesthesia or difficult intubation. Denies CP, dizziness, SOB. Overall feels good except her arm. Is taking an ibuprofen rx for pain, this is helpful. Very difficult to dress and undress, bathe, all ADLs. Daughter is able to help with things she is unable to do. Has had 2 colonoscopies and wakes up with them. Had knee surgery and was able to feel the sawing. States she may need a little extra for sedation. Has swelling to both of her lower legs, this is chronic. Right is worse than left. Has been going on, on a little bit of a worse scale for a few months. Isn't necessarily painful. Thinks she has this because she's not very active. Has furosemide at home prom an old previous rx that she has been taking prn-this is not on her medication list-she does not know the dose. Has been taking it regularly for the past month with some temporary improvement. Past medical history, appointments, medications, allergies reviewed. Previous Medical History PAST MEDICAL HISTORY Diagnosis Date Acid reflux Arrhythmia Arthritis Coronary artery disease Does use hearing aid Heart attack (HCC) Hypertension Osteopenia 07/2013 left hip on DEXA Rash of face S/P YAG capsulotomy, left 08/12/2022 Seasonal allergies Snoring Previous Surgical History PAST SURGICAL HISTORY Procedure Laterality Date COLONOSCOPY 2006 small polyp COLONOSCOPY FLX DX W/COLLJ SPEC WHEN PFRMD 08/02/14 Colonoscopy COLONOSCOPY FLX DX W/COLLJ SPEC WHEN PFRMD 11/27/2019 Colonoscopy ESOPHAGOGASTRODUODENOSCOPY TRANSORAL DIAGNOSTIC 11/27/2019 EGD PAST SURGICAL HISTORY OF 01/2013 left TKA PAST SURGICAL HISTORY OF 07/2012 right TKA PAST SURGICAL HISTORY OF 2006 ORIF wrist, right PAST SURGICAL HISTORY OF 2002 meniscectomy right knee XCAPSL CTRC RMVL INSJ IO LENS PROSTH W/O ECP Right 01/04/2020 Cataract Extraction with PC IOL 21.5 D XCAPSL CTRC RMVL INSJ IO LENS PROSTH W/O ECP Left Cataract Extraction with PC IOL 21.0 D Family History FAMILY HISTORY Problem Relation Age of Onset Arthritis Mother Heart Mother Hypertension Mother Arthritis Father Heart Father Hypertension Father Cancer Sister Breast Cancer Sister 56 No Ocular Disease No Family History Diabetes No Family History Patient Allergies ALLERGIES No Known Allergies Current Medications Current Outpatient Medications on File Prior to Visit Medication Sig pantoprazole DR (PROTONIX) 40 mg tablet Take 1 tablet by mouth once daily. prednisoLONE acetate (PRED FORTE, ECONOPRED PLUS) 1 % ophthalmic suspension Use 1 Drop in the right eye four times daily. ketorolac (ACULAR) 0.5 % ophthalmic solution Use 1 Drop in the right eye four times daily. docusate sodium (STOOL SOFTENER) 100 mg capsule Take 1 capsule by mouth twice daily. Fexofenadine-Pseudoephedrine (ELSIE-D 24 HOUR) 180-240 mg per 24 hr tablet Take 1 tablet by mouth once daily as needed (sinus/cold symptoms). KLOR-CON 10 10 mEq tablet Naproxen SR (EC-NAPROSYN) 500 mg EC tablet Take 1 tablet by mouth twice daily as needed. enalapril (VASOTEC) 2.5 mg tablet Take 2.5 mg by mouth once daily. atorvastatin (LIPITOR) 20 mg tablet Take 1 tablet by mouth once daily. For cholesterol. carvedilol (COREG) 3.125 mg tablet Take 1 tablet by mouth twice daily. aspirin, enteric coated 81 mg EC tablet Take 81 mg by mouth once daily. ascorbic acid, vitamin C, (VITAMIN C) 500 mg tablet Take 500 mg by mouth once daily. No current facility-administered medications on file prior to visit. Social History Social History Tobacco Use Smoking status: Never Smokeless tobacco: Never Vaping Use Vaping Use: Never used Substance Use Topics Alcohol use: No Drug use: Never Review of Symptoms REVIEW OF SYSTEMS See HPI, otherwise negative EXAM: BP 136/82 (BP Site: Left Arm, BP Position: Sitting, BP Cuff Size: Regular Adult) Pulse 78 Resp 18 Wt 105 kg (231 lb 6.4 oz) SpO2 94% BMI 39.72 kg/m General Appearance: Well appearing, alert, in no acute distress, well-hydrated, well nourished.. Ears: External ears normal, canals clear. Nose/Sinuses: Nares normal, septum midline, mucosa normal, no drainage or sinus tenderness. Oropharynx: Lips, mucosa, and tongue normal, teeth and gums normal, oropharynx normal. Neck: Supple, no adenopathy; thyroid symmetric, normal size, no bruits. Lungs: Lungs clear to auscultation. No wheezing, rhonchi, rales.. Heart: RRR without murmur, gallop, or rubs. No ectopy. Musculoskeletal: Fingers are warm, good cap refill, decreased movement, technical support manager in right hand/wrist. Extremities: 3+ pitting BLE edema. Peripheral Pulses: Normal. Neurologic: Gait normal. Reflexes normal and symmetric. Sensation grossly intact.. Psychiatric: pleasant, cooperative. Health Maintenance List RSV Vaccine(1 - 1-dose 60+ series) Never done Shingrix Vaccine(2 of 3) due on 01/03/2012 BP Controlled (<130/80) due on 02/16/2023 Behavioral Health Screening Never done Covid-19 Vaccine(2022- season) due on 06/12/2023 Annual PCP Team Chronic Disease Visit due on 07/12/2024 DTaP,Tdap,Td Vaccine(2 - Td or Tdap) due on 08/29/2025 Diabetes Screening due on 09/08/2026 Bone Density Screening Completed Influenza Vaccine Completed Pneumococcal Vaccine: 65+ Completed Colorectal Cancer Screening Discontinued Advance Directive Discussion Discontinued Data reviewed Previous records, office notes ASSESSMENT/PLAN: 1. Preop examination - ICD9: V72.84, ICD10: Z01.818 (primary diagnosis) Clear for surgery from my standpoint once lab results are received. I do not have a form to fill out at this time but will request from surgeon's office. 2. Extensor tendon rupture of hand, right, subsequent encounter - ICD9: V58.89, 842.10, ICD10: S66.811D Clear for surgery from my standpoint once lab results are received. I do not have a form to fill out at this time but will request from surgeon's office. 3. Bilateral lower extremity edema - ICD9: 782.3, ICD10: R60.0 Has been taking furosemide on her own at home-unclear what dose. She will call the office later today with the dose. K+ on 09/09/2023 was 4.2. Will increase dose based on her call of what she is currently taking and recheck K+ level in a week-would like this to be completed prior to surgery. 4. Elevated antinuclear antibody (NOEMY) level - ICD9: 795.79, ICD10: R76.8 - CONSULT TO RHEUM/IMMUN DISEASE 5. Elevated rheumatoid factor - ICD9: 795.79, ICD10: R76.8 - CONSULT TO RHEUM/IMMUN DISEASE Chyna Grimm APRN.VEGETABLE PREPARER documented in this encounter [facility] 09-24-2023 History of Presen t illness Narrative Chief Complaint Patient presents with Right Shoulder - Post-op TS-Reverse DOS: 08/10/23 - 45 days out Xrays today History of Present Illness Patient returns today after shoulder arthroplasty. Pain is improving. Denies any numbness tingling or shortness of breath. Pain is appropriate for post-op course. Exam Mild swelling Incision well healed Normal sensation over deltoid Passive forward flexion 0 to 90 degrees, Active forward flexion 0-90 Neurovascular exam normal distally Assessment Patient status post right reverse total shoulder arthroplasty for fracture Plan Continue physical therapy Discussed activity restrictions. Follow-up 6 weeks XR at follow up 3views Shoulder Grashey, Axillary, Scap Y Regarding physical therapy will only initiate passive range of motion exercises at this point in time as patient did have a reverse shoulder arthroplasty for fracture. After 6 weeks time will initiate active range of motion exercises. Discussed with patient that outcomes with reverse for fracture are not as good in comparison to signs of primary shoulder arthritis. Will optimize result is much as possible with dedicated physical therapy. documented in this encounter [facility] Work Phone: 09-21-2023 History of Presen t illness Narrative Images from the original note were not included. History of Present Illness Patient returns today for evaluation of right wrist. MRI obtained which shows discontinuity of ring and small finger extensor tendons. Additionally considerable tenosynovitis throughout the extensor compartment. Severe DRUJ arthritis. Labs obtained which do show evidence of rheumatoid arthritis.. Physical Examination: Right upper extremity: The patient appears to be their stated age, is in no apparent distress, and is oriented x3. The patients mood and affect are appropriate. The patients gait is normal. The examination of the limb in question was performed in comparison to the contralateral limb. Unchanged exam from prior MRI: Disruption of the 5th extensor digitorum communis and extensor digiti minimi tendons at the level of distal carpal row would be compatible with Rosa Nain syndrome. Additional disruption of the 4th extensor digitorum tendon. Moderate 4th and 5th extensor compartment tenosynovitis. 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 Considerable tenosynovitis and severe DRUJ arthritis. Plan: Recommend ward procedure with extensor tendon transfers of the small and ring finger. Additionally extensor tenosynovectomy. Discussed the new diagnosis of rheumatoid arthritis with patient. She will follow-up with her PCP to establish with rheumatology. We will need medical clearance prior to proceeding. Maryam Levy MD documented in this encounter [facility] Work Phone: 09-03-2023 Telephone encounter Note Enalapril 2.5 mg po daily, # 90 with 1 refills until pt can be seen in next follow up appt. Msg sent to scheduling to call pt for appointment. [facility] 09-03-2023 Miscellaneous Notes Enalapril 2.5 mg po daily, # 90 with 1 refills until pt can be seen in next follow up appt. Msg sent to scheduling to call pt for appointment. documented in this encounter [facility] 09-03-2023 History of Presen t illness Narrative Images from the original note were not included. History of Present Illness: Presents for evaluation of right wrist pain and inability to extend the ring and small finger. History of remote distal radius fracture 17 years ago treated operatively. States that she has had issues with moving the ring and small finger over the past few months and this is progressively worsening. Denies history of rheumatoid arthritis. Mom with history of rheumatoid arthritis and potentially one of her sisters. Denies numbness and tingling throughout the hand. Review of Systems GENERAL: Negative for malaise, significant weight loss, fever MUSCULOSKELETAL: see HPI NEURO: Negative The patient's past medical history, family history, social history, and review of systems were reviewed. History is otherwise negative except as stated in the HPI. Physical Examination: General: Alert and oriented to person, place, and time. No acute distress and breathing comfortably: Pleasant and cooperative with examination. HEENT: Head is normocephalic and atraumatic. Neck: Supple, no visible swelling. Cardiovascular: No palpable tachycardia Lungs: No audible wheezing or labored breathing Abdomen: Nondistended. On musculoskeletal examination, Considerable swelling about the dorsal aspect of the wrist. Considerable tenderness ovation over the DRUJ. DRUJ does sublux. Wrist range of motion is 4545. She is able make a full composite fist. Unable to fully extend the ring and small finger. Able to extend the thumb index and long finger against resistance. Sensation tact light touch in radial ulnar median nerve distribution. Hand is warm well-perfused throughout. Imaging: Radiographic notes: AP lateral and oblique of the right wrist demonstrates severe DRUJ arthritis and dorsal ulnar subluxation most consistent with von Nain syndrome. Assessment: Patient with right wrist pain and inability to extend the ring and small finger. X-ray consistent with von Nain syndrome. Concern for rheumatoid arthritis. I have ordered a base rheumatoid arthritis labs. Additionally I would like to get an MRI to fully assess her tendons and for preoperative planning. Did discuss that based on the level of her arthritis I believe that she will need a Darrach and tendon transfer procedure in order to regain extension of the ring and small finger. Plan: MRI of the right wrist to assess extensor tendons. Additionally RA labs. I would like to see her back after MRI to discuss surgical planning Follow up: After MRI Maryam Lugo MD documented in this encounter [facility] Work Phone: 08-27-2023 History of Presen t illness Narrative Chief Complaint Patient presents with Right Shoulder - Post-op TS-Reverse DOS: 08/10/23 (2.5 weeks out) Xrays today : History of Present Illness Patient returns today after shoulder arthroplasty. Pain is improving. Denies any numbness tingling or shortness of breath. Pain is appropriate for post-op course. Exam Mild swelling Incision healthy, no drainage or erythema Normal sensation over deltoid Tolerates gentle passive forward flexion Neurovascular exam normal distally XR shoulder right 2+ views Result Date: 08/27/2023 Interpreted By: Indira Levy III, STUDY: XR SHOULDER RIGHT 2+ VIEWS; ; 08/27/2023 2:46 pm INDICATION: Signs/Symptoms:pain. COMPARISON: None. ACCESSION NUMBER(S): [id number] ORDERING CLINICIAN: INDIRA LEVY FINDINGS: Three views right shoulder: Status post right reverse shoulder arthroplasty for fracture. In comparison to immediate postoperative film appears to be increased inferior inclination. No Janice implant lucency. Appropriate position of greater tuberosity status post repair. Status post reverse right shoulder arthroplasty for fracture MACRO: None Signed by: Indira Levy III 08/27/2023 4:45 PM Dictation workstation: [id number] XR shoulder right 2+ views Result Date: 08/10/2023 Interpreted By: Farnaz Vargas, STUDY: XR SHOULDER RIGHT 2+ VIEWS; ; 08/10/2023 3:23 pm INDICATION: Signs/Symptoms:post op in pacu grashey and y views. COMPARISON: 07/02/2023 ACCESSION NUMBER(S): [id number] ORDERING CLINICIAN: INDIRA LEVY FINDINGS: Reverse right shoulder arthroplasty. Residual comminuted bone fragments along the lateral aspect of the humeral component of the prosthesis. Gas and swelling in the joint and soft tissues compatible with postoperative change. Postoperative changes of reverse right shoulder arthroplasty. MACRO: None Signed by: Farnaz Vargas 08/10/2023 4:36 PM Dictation workstation: [id number] Assessment Patient status post right reverse total shoulder arthroplasty Plan Surgical details discussed. Encouraged non-opioid pain medications. Discussed sling wear and activity restrictions. Discussed physical therapy plan. Follow-up 4 weeks XR at follow up 3views Shoulder Grashey, Axillary, Scap Y X-ray findings discussed with patient in detail. Discussed that there does appear to be significantly more inferior tilt and immediate postoperative x-rays. Will obtain another set of x-rays on Wednesday for repeat evaluation of this. Truly difficult to assess if this is projectional or not based on x-ray technique. Patient has no pain at all today. Given her bone quality discussed with her that revision surgery of glenoid component may or may not be helpful. Also risks of surgery as well to include infection, recurrent instability etc. At this point in time patient wishes to continue with conservative treatment as she is 78 years old.. Will continue to monitor position of components to ensure no interval worsening. Addendum:/Plan update: Repeat x-rays obtained. Will continue with current treatment regarding follow-up in 4 weeks. No change in plan at this point in time. There is excessive inferior tilt as described with patient in person 09/03/2023 she wishes to continue with conservative treatment at this time we will monitor x-rays and activities. documented in this encounter [facility] Work Phone: 08-11-2023 Nurse Note Discharge instructions reviewed with patient. Patient verbalized understanding with no further questions. [facility] Work Phone: 08-11-2023 Nurse Note Discharge instructions reviewed with patient. Patient verbalized understanding with no further questions. documented in this encounter [facility] Work Phone: 08-11-2023 History of Presen t illness Narrative Physical Therapy Physical Therapy Evaluation Patient Name: Felisha Joaquin Today's Date: 08/11/2023 Time Calculation Start Time: 719 Stop Time: 746 Time Calculation (min): 27 min Assessment/Plan PT Assessment PT Assessment Results: Decreased mobility, Impaired balance, Decreased safety awareness Rehab Prognosis: Good Evaluation/Treatment Tolerance: Patient limited by fatigue Assessment Comment: Patient will benefit from additional gait training to determine appropriate device End of Session Patient Position: Up in chair, Alarm on (LEs elevated) IP OR SWING BED PT PLAN Inpatient or Swing Bed: Inpatient PT Plan Treatment/Interventions: Gait training, Transfer training PT Plan: Skilled PT PT Frequency: (1-2 visits) PT Discharge Recommendations: (supervision) Equipment Recommended upon Discharge: (TBD) PT Recommended Transfer Status: Assist x1 PT - OK to Discharge: (once deemed medically appropriate with family support) Subjective General Visit Information: General Reason for Referral: s/p Right Reverse TSA with open biceps tenodesis 08/10/23 Referred By: PT/OT 08/10/23 Geno Ocampo NO SHOULDER ROM; NWB RUE; SLING AT ALL TIMES EXCEPT THERAPY; AROM ELBOW/WRIST, HAHND AND FINGERS Past Medical History Relevant to Rehab: HLD, HTN, Arthritis, GERD, C19 Patient Position Received: Bed, 3 rail up, Alarm on General Comment: Patient had right displaced proximal humerus fracture with worsening alignment 06/07/23 Home Living: Home Living Home Living Comments: Per patient report resides alone 1 story 1 + 1 step to enter without handrial. Walk in shower no seat, has grab bar. Owns cane Prior Level of Function: Prior Function Per Pt/Caregiver Report Hand Dominance: Right Prior Function Comments: Per patient report independeent in mobiilty, ADLS and IADLS without assistive device. Reports only 1 fall when tripped over shoes and another adjusting self in recliner. Drives. Precautions: Precautions UE Weight Bearing Status: Right Non-Weight Bearing Medical Precautions: Fall precautions Post-Surgical Precautions: (NO SHOULDER ROM; NWB RUE; SLING AT ALL TIMES EXCEPT THERAPY; AROM ELBOW/WRIST, HAHND AND FINGERS) Braces Applied: ultrasling in place RUE, Removed wedge secondary to poor fit to discuss with OT. Objective Pain: Pain Assessment Pain Score: 3 Pain Type: Surgical pain Pain Location: Shoulder Pain Orientation: Right Cognition: Cognition Overall Cognitive Status: Within Functional Limits Orientation Level: Oriented X4 General Assessments: General Observation General Observation: Patient lying in bed with ultralsing in place but popr fit. Adjusted ultralsling and removed wedge Activity Tolerance Endurance: (Fair) Static Sitting Balance Static Sitting-: Good Dynamic Sitting Balance Dynamic Sitting-Comments: Good Static Standing Balance Static Standing: Fair Dynamic Standing Balance Dynamic Standing- Fair- Functional Assessments: Bed Mobility Bed Mobility: (Supine > sit with HOB 45 degrees + 1minimal assist, Owns recliner and has been sleeping in it.) Transfers Transfer: (SIt > stand at bed level CGA, Stand > sit at recliner sBA) Ambulation/Gait Training Ambulation/Gait Training Performed: (patient ambulated with SPC, + 1 minimal assist. Tends to lean heavily on SPC and force sequencing. Education on proper use and sequencing with poor follow through. Will benefit from additonal gait instruction. trail quad cane) Extremity/Trunk Assessments: RUE RUE : (RIght shoulder not tested. elbow/wrist/hand WFL) LUE LUE: Within Functional Limits RLE RLE : (AROM Hip/knee/ankle WFL MMT 4/5 grossly) LLE LLE : (AROM Hip/knee/ankle WFL MMT 4/5 grossly) Outcome Measures: [facility] Basic Mobility Turning from your back to your side while in a flat bed without using bedrails: A little Moving from lying on your back to sitting on the side of a flat bed without using bedrails: A little Moving to and from bed to chair (including a wheelchair): A little Standing up from a chair using your arms (e.g. wheelchair or bedside chair): A little To walk in hospital room: A little Climbing 3-5 steps with railing: A little Basic Mobility - Total Score: 18 Encounter Problems Encounter Problems (Active) PT Problem Transfers sit <> stand modified independent (Progressing) Start: 08/11/23 Expected End: 08/18/23 Patient to ambulate with SPC v QC 20' supervised (Progressing) Start: 08/11/23 Expected End: 08/18/23 Education Documentation Precautions, taught by Whitney Ruffin PT at 08/11/2023 12:40 PM. Learner: Patient Readiness: Acceptance Method: Demonstration, Explanation Response: Demonstrated Understanding, Needs Reinforcement Mobility Training, taught by Whitney Ruffin PT at 08/11/2023 12:40 PM. Learner: Patient Readiness: Acceptance Method: Demonstration, Explanation Response: Demonstrated Understanding, Needs Reinforcement Images from the original note were not included. Orthopedic Surgery Progress Note Felisha Joaquin 08/11/2023 Subjective: Post-Operative Day # 1 Status Post right Revers Total Shoulder Arthroplasty Systemic or Specific Complaints: No Complaints Objective: Visit Vitals BP 129/60 (Patient Position: Sitting) Pulse 63 Temp 36.2 C (97.2 F) (Temporal) Resp 16 Intake/Output Summary (Last 24 hours) at 08/11/2023 0943 Last data filed at 08/11/2023 0824 Gross per 24 hour Intake 2503.06 ml Output -- Net 2503.06 ml DRAIN/TUBE OUTPUT: General: alert and oriented, in no acute distress, appears stated age, and cooperative Wound: no erythema, no edema, no drainage, and dressing is clean, dry, and intact Extremity: Sling on extremity. Distal NVI DVT Exam: No evidence of DVT seen on physical exam. Negative Howie's sign. No significant calf/ankle edema. Data Review Labs reviewed: CBC: Lab Results Component Value Date WBC 10.0 08/11/2023 WBC 6.0 07/29/2023 HGB 10.8 (L) 08/11/2023 HGB 11.9 (L) 07/29/2023 BMP: Lab Results Component Value Date NA 133 (L) 08/11/2023 NA 132 (L) 07/29/2023 K 4.2 08/11/2023 K 4.1 07/29/2023 CL 99 08/11/2023 CL 97 (L) 07/29/2023 CO2 27 08/11/2023 CO2 24 07/29/2023 BUN 16 08/11/2023 BUN 12 07/29/2023 CREATININE 0.93 08/11/2023 CREATININE 0.87 07/29/2023 I&O I/O last 3 completed shifts: In: 2183.1 (21.1 mL/kg) [I.V.:1883.1 (18.2 mL/kg); IV Piggyback:300] Out: - (0 mL/kg) Dosing Weight: 103.4 kg Assessment: Status Post right Reverse Total Shoulder Arthroplasty, doing well postoperatively. No acute events overnight. Acute postoperative pain: Reports mild to moderate pain to operative extremity. Exacerbated by movement, relieved by rest ice and pain medication. Continue current pain management. Acute post op anemia: Patients hemoglobin this morning on labs 10.8 secondary to expected surgical blood loss. Patient is asymptomatic, remains hemodynamically stable, and shows no signs of active bleeding. Plan: 1. Follow up with surgeon in 2 weeks 2. Continue pain control, scripts sent 3. PT/OT: Non weightbearing to right shoulder with no ROM. Ok for ROM to elbow, hand, and wrist 4. 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 Yes Type of Animals or Pets 2 birds Home or Post Acute Services None Patient expects to be discharged to: Home Does the patient need discharge transport arranged? No Financial Resource Strain How hard is it for you to pay for the very basics like food, housing, medical care, and heating? Not hard Housing Stability In the last 12 months, was there a time when you were not able to pay the mortgage or rent on time? N In the last 12 months, how many places have you lived? 1 In the last 12 months, was there a time when you did not have a steady place to sleep or slept in a fci (including now)? N Transportation Needs In the past 12 months, has lack of transportation kept you from medical appointments or from getting medications? no In the past 12 months, has lack of transportation kept you from meetings, work, or from getting things needed for daily living? No Pt is s/p Right reverse total shoulder arthroplasty and long tendon biceps tenodesis 08/10/[address] Indira Levy. 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 PT/OT eval [facility] scores are currently pending. Pt states DC preference is home, and declines home going needs at this time, states her daughter will stay with her to assist as needed. CT team will monitor case progression for potential DC needs. documented in this encounter [facility] Work Phone: 08-11-2023 Consult note Formatting of th is note is different from the original. Consults Reason For Consult HTN History Of Present Illness Felisha Joaquin is a 78 y.o. female presents to the Orthopedics team after worsening fracture of her right humerus s/p fall. After failed conservative treatment, patient underwent surgery with no immediate post op complications, reports minimal pain to site described as dull in nature, mild in severity, responding well to pain meds. No other complaints. Hospitalist services were consulted for management of the patient's medical conditions post/op. Patient examined and seen, resting comfortably. Denies chest pain, shortness of breath, abdominal pain, dizziness, fever or chills. Currently patient vital signs are stable. Plan of care was discussed with patient, verbalized understanding through teach back method. Hospitalist team will continue to follow until discharge. Review of systems: 10 system were reviewed and were negative except what was mentioned in history of present illness Past Medical History She has a past medical history of Arthritis, Cataract, Constipation, COVID-19, Falls, Fractures, GERD (gastroesophageal reflux disease), Hearing aid worn, Hypertension, Joint pain, and Wears glasses. Arrhythmia, CAD, [place] in 2015 Surgical History She has a past surgical history that includes Colonoscopy; Upper gastrointestinal endoscopy; Wrist fracture surgery (Right); Joint replacement; Cataract extraction; and Bunionectomy (Bilateral). Social History She reports that she has never smoked. She has never used smokeless tobacco. She reports that she does not drink alcohol and does not use drugs. Family History Reviewed, not pertinent to admission Allergies Patient has no known allergies. Physical Exam Constitutional: Well developed, awake/alert/oriented x3, cooperative Eyes: PERRL, clear sclera ENMT: mucous membranes moist, no apparent injury, no lesions seen Head/Neck: Neck supple, no apparent injury, Respiratory/Thorax: Patent airways, normal breath sounds with good chest expansion, thorax symmetric Cardiovascular: Regular, rate and rhythm, no murmurs, 2+ equal pulses of the extremities, normal S 1and S 2 Gastrointestinal: Nondistended, soft, non-tender, Musculoskeletal: mild decrease range of motion to right upper extremity s/p sx intervention, good capillary refills bilaterally, +2 pulses, good sensation Extremities: normal extremities, incision covered with Aquacel, CDI sling in place Skin: warm, dry, intact Neurological: alert/oriented x 3, speech clear Psychiatric: appropriate mood and behavior Last Recorded Vitals BP 129/60 (Patient Position: Sitting) Pulse 63 Temp 36.2 C (97.2 F) (Temporal) Resp 16 Wt 103 kg (227 lb 15.3 oz) SpO2 95% Relevant Results Scheduled medications acetaminophen, 650 mg, oral, q6h CAMERON aspirin, 81 mg, oral, Daily atorvastatin, 20 mg, oral, Nightly carvedilol, 3.125 mg, oral, BID with meals docusate sodium, 100 mg, oral, BID enalapril, 2.5 mg, oral, Daily [START ON 08/12/2023] pantoprazole, 20 mg, oral, Daily before breakfast Continuous medications lactated Ringer's, 100 mL/hr, Last Rate: Stopped (08/10/23 1437) lactated Ringer's, 50 mL/hr, Last Rate: Stopped (08/11/23 0824) PRN medications PRN medications: bisacodyl, cyclobenzaprine, HYDROmorphone, morphine, naloxone, ondansetron OR ondansetron, oxyCODONE, oxyCODONE, prochlorperazine OR prochlorperazine OR prochlorperazine, promethazine (Phenergan) 6.25 mg in sodium chloride 0.9% 50 mL IV Results for orders placed or performed during the hospital encounter of 08/10/23 (from the past 24 hour(s)) Basic metabolic panel Result Value Ref Range Glucose 138 (H) 74 - 99 mg/dL Sodium 133 (L) 136 - 145 mmol/L Potassium 4.2 3.5 - 5.3 mmol/L Chloride 99 98 - 107 mmol/L Bicarbonate 27 21 - 32 mmol/L Anion Gap 11 10 - 20 mmol/L Urea Nitrogen 16 6 - 23 mg/dL Creatinine 0.93 0.50 - 1.05 mg/dL eGFR 62 >60 mL/min/1.73m*2 Calcium 9.5 8.6 - 10.3 mg/dL CBC POD 1 Result Value Ref Range WBC 10.0 4.4 - 11.3 x10*3/uL nRBC 0.0 0.0 - 0.0 /100 WBCs RBC 3.39 (L) 4.00 - 5.20 x10*6/uL Hemoglobin 10.8 (L) 12.0 - 16.0 g/dL Hematocrit 32.6 (L) 36.0 - 46.0 % MCV 96 80 - 100 fL MCH 31.9 26.0 - 34.0 pg MCHC 33.1 32.0 - 36.0 g/dL RDW 12.6 11.5 - 14.5 % Platelets 244 150 - 450 x10*3/uL Assessment/Plan # Displaced Comminuted proximal humerus fx Total right reverse shoulder arthoplasty Admit to Orthopedics Team Hospitalist team Consulted DVTp and Pain management per Ortho PT/OT evaluation and treatment CBC/BMP as appropriate, review results Pulmonary Toileting Follow up as needed outpatient with Orthopedics # HTN / HLD Telemetry for arrhythmia monitoring Denies any palpitations, chest pain, shortness of breath Hold Lasix at this time Resume at discharge Hemodynamically stable #GERD Continue PPI Stay upright for 30minutes Take pain medications with food # Obesity Encourage healthy lifestyle changes BMI 37 Thank you for consult MEDICINE TO SIGN OFF CALL FOR ACUTE NEEDS Discharging per ortho Time spent 56 minutes obtaining labs, imaging, recommendations, interview, assessment, examination, medication review/ordering, and EMR review. Plan of care was discussed extensively with patient, RN and daughter. Patient verbalized understanding through teach back method. All questions and concerns addressed upon examination. Of note, this documentation is completed using the [employer] Dictation system (voice recognition software). There may be spelling and/or grammatical errors that were not corrected prior to final submission. NEDA York T [facility] Work Phone: 08-11-2023 Consult note Formatting of th is note is different from the original. Consults Reason For Consult HTN History Of Present Illness Felisha Joaquin is a 78 y.o. female presents to the Orthopedics team after worsening fracture of her right humerus s/p fall. After failed conservative treatment, patient underwent surgery with no immediate post op complications, reports minimal pain to site described as dull in nature, mild in severity, responding well to pain meds. No other complaints. Hospitalist services were consulted for management of the patient's medical conditions post/op. Patient examined and seen, resting comfortably. Denies chest pain, shortness of breath, abdominal pain, dizziness, fever or chills. Currently patient vital signs are stable. Plan of care was discussed with patient, verbalized understanding through teach back method. Hospitalist team will continue to follow until discharge. Review of systems: 10 system were reviewed and were negative except what was mentioned in history of present illness Past Medical History She has a past medical history of Arthritis, Cataract, Constipation, COVID-19, Falls, Fractures, GERD (gastroesophageal reflux disease), Hearing aid worn, Hypertension, Joint pain, and Wears glasses. Arrhythmia, CAD, [place] in 2015 Surgical History She has a past surgical history that includes Colonoscopy; Upper gastrointestinal endoscopy; Wrist fracture surgery (Right); Joint replacement; Cataract extraction; and Bunionectomy (Bilateral). Social History She reports that she has never smoked. She has never used smokeless tobacco. She reports that she does not drink alcohol and does not use drugs. Family History Reviewed, not pertinent to admission Allergies Patient has no known allergies. Physical Exam Constitutional: Well developed, awake/alert/oriented x3, cooperative Eyes: PERRL, clear sclera ENMT: mucous membranes moist, no apparent injury, no lesions seen Head/Neck: Neck supple, no apparent injury, Respiratory/Thorax: Patent airways, normal breath sounds with good chest expansion, thorax symmetric Cardiovascular: Regular, rate and rhythm, no murmurs, 2+ equal pulses of the extremities, normal S 1and S 2 Gastrointestinal: Nondistended, soft, non-tender, Musculoskeletal: mild decrease range of motion to right upper extremity s/p sx intervention, good capillary refills bilaterally, +2 pulses, good sensation Extremities: normal extremities, incision covered with Aquacel, CDI sling in place Skin: warm, dry, intact Neurological: alert/oriented x 3, speech clear Psychiatric: appropriate mood and behavior Last Recorded Vitals BP 129/60 (Patient Position: Sitting) Pulse 63 Temp 36.2 C (97.2 F) (Temporal) Resp 16 Wt 103 kg (227 lb 15.3 oz) SpO2 95% Relevant Results Scheduled medications acetaminophen, 650 mg, oral, q6h CAMERON aspirin, 81 mg, oral, Daily atorvastatin, 20 mg, oral, Nightly carvedilol, 3.125 mg, oral, BID with meals docusate sodium, 100 mg, oral, BID enalapril, 2.5 mg, oral, Daily [START ON 08/12/2023] pantoprazole, 20 mg, oral, Daily before breakfast Continuous medications lactated Ringer's, 100 mL/hr, Last Rate: Stopped (08/10/23 1437) lactated Ringer's, 50 mL/hr, Last Rate: Stopped (08/11/23 0824) PRN medications PRN medications: bisacodyl, cyclobenzaprine, HYDROmorphone, morphine, naloxone, ondansetron OR ondansetron, oxyCODONE, oxyCODONE, prochlorperazine OR prochlorperazine OR prochlorperazine, promethazine (Phenergan) 6.25 mg in sodium chloride 0.9% 50 mL IV Results for orders placed or performed during the hospital encounter of 08/10/23 (from the past 24 hour(s)) Basic metabolic panel Result Value Ref Range Glucose 138 (H) 74 - 99 mg/dL Sodium 133 (L) 136 - 145 mmol/L Potassium 4.2 3.5 - 5.3 mmol/L Chloride 99 98 - 107 mmol/L Bicarbonate 27 21 - 32 mmol/L Anion Gap 11 10 - 20 mmol/L Urea Nitrogen 16 6 - 23 mg/dL Creatinine 0.93 0.50 - 1.05 mg/dL eGFR 62 >60 mL/min/1.73m*2 Calcium 9.5 8.6 - 10.3 mg/dL CBC POD 1 Result Value Ref Range WBC 10.0 4.4 - 11.3 x10*3/uL nRBC 0.0 0.0 - 0.0 /100 WBCs RBC 3.39 (L) 4.00 - 5.20 x10*6/uL Hemoglobin 10.8 (L) 12.0 - 16.0 g/dL Hematocrit 32.6 (L) 36.0 - 46.0 % MCV 96 80 - 100 fL MCH 31.9 26.0 - 34.0 pg MCHC 33.1 32.0 - 36.0 g/dL RDW 12.6 11.5 - 14.5 % Platelets 244 150 - 450 x10*3/uL Assessment/Plan # Displaced Comminuted proximal humerus fx Total right reverse shoulder arthoplasty Admit to Orthopedics Team Hospitalist team Consulted DVTp and Pain management per Ortho PT/OT evaluation and treatment CBC/BMP as appropriate, review results Pulmonary Toileting Follow up as needed outpatient with Orthopedics # HTN / HLD Telemetry for arrhythmia monitoring Denies any palpitations, chest pain, shortness of breath Hold Lasix at this time Resume at discharge Hemodynamically stable #GERD Continue PPI Stay upright for 30minutes Take pain medications with food # Obesity Encourage healthy lifestyle changes BMI 37 Thank you for consult MEDICINE TO SIGN OFF CALL FOR ACUTE NEEDS Discharging per ortho Time spent 56 minutes obtaining labs, imaging, recommendations, interview, assessment, examination, medication review/ordering, and EMR review. Plan of care was discussed extensively with patient, RN and daughter. Patient verbalized understanding through teach back method. All questions and concerns addressed upon examination. Of note, this documentation is completed using the [employer] system (voice recognition software). There may be spelling and/or grammatical errors that were not corrected prior to final submission. NEDA York documented in this encounter [facility] Work Phone: 08-11-2023 Hospital course Narrative Images from the original note were not included. Discharge summary This patient Felisha Joaquin was admitted to the hospital on 08/10/2023 after undergoing Procedure(s) (LRB): TOTAL RIGHT ARTHROPLASTY SHOULDER REVERSE POSSIBLE BICEPS TENODESIS, LE TORNIER, REVIVE STEMS AVAILABLE , BRYNN HOSE, beach chair, 23 HR. OBS/BEDDED OP (Right) without complications that morning. During the postoperative period,while in hospital, patient was medically managed by the hospitalist. Please see medial notes and H&P for patients additional diagnoses. Ortho agrees with all medical diagnoses and treatments while patient in hospital. No significant or unexpected findings or abnormal ortho imaging were noted during the hospital stay Hospital course Patient tolerated surgical procedure well and there was no complications. Patient progressed adequately through their recovery during hospital stay including PT and rehabilitation. Patient was then D/C on to home in stable condition. Patient was instructed on the use of pain medications, the signs and symptoms of infection, and was given our number to call should they have any questions or concerns following discharge. Based on my clinical judgment, the patient was provided with a 7-day prescription for opioid medication at 30 MED, indicated for treatment of acute pain in the setting of recent surgery. OARRS report was run and has demonstrated an appropriate time course. The patient has been provided with counseling pertaining to safe use of opioid medication. Patient Non weightbearing to right shoulder with no ROM. Ok for ROM to elbow, hand, and wrist. Mepilex dressing to be removed POD#7 and incision left open to air Follow up with surgeon in 2 weeks documented in this encounter [facility] Work Phone: 08-11-2023 Hospital Discharg e instructions NEDA Carney - 08/11/2023 9:48 AM EDT Images from the original note were not included. Reverse Total Shoulder Replacement Discharge Instructions Surgical Site Care: Change dressing once a day and PRN (as needed). Apply 4 x 4 sponge and light tape. If glue present, leave open to air. You may leave wound open to air after initial dressing removal, if wound is clean, dry and intact If Aquacel Ag dressing is present, do not remove dressing for 7 days, unless heavily saturated. If heavily saturated, remove dressing and start using instructions above July will be removed on post-operative day 14 and steri-strips applied Showering is permitted starting POD1 if waterproof Aquacel dressing is present or when the incision is covered with 4 x 4 and Tegaderm waterproof dressing Until all areas of incision are healed. Physical Therapy: Weight Bearing Status: NWB ( none weight bearing) No ROM of Shoulder Active and passive range of motion of elbow, wrist, hand Per Physical Therapy handout Sling to be applied at all times when out of bed. Ok to remove sling for hygiene and when awake in bed with support Pain Medications You were given oxycodone Wean off pain medications as you deem appropriate as long as pain is under control Contact the [facility] if you notice any reactions to the medication or need a refill Cold packs/Ice packs/Machine May be used 5 times daily for 15-30 minutes as necessary Be sure to have a barrier (cloth, clothing, towel) between the site and the ice pack to prevent frostbite Contact the [facility] office if Increased redness, swelling, drainage of any kind, and/or pain to surgery site. As well as new onset fevers and or chills. These could signify an infection. Arm tenderness to touch as well as increased swelling or redness. This could signify a clot formation. Numbness or tingling to an area around the incision site or below the incision site (fingers). Any rash appears, increased or new onset nausea/vomiting occur. This may indicate a reaction to a medication. . Follow up with Surgeon in 2 weeks documented in this encounter [facility] Work Phone: 08-10-2023 Miscellaneous Notes TOTAL RIGHT ARTHROPLASTY SHOULDER REVERSE POSSIBLE BICEPS TENODESIS, LE TORNIER, REVIVE STEMS AVAILABLE , BRYNN REMBERTOE, beach chair, 23 HR. OBS/BEDDED OP (R) Operative Note Date: 08/10/2023 OR Location: [facility] Name: Felisha Joaquin : 1945, Age: 78 y.o., , Sex: female Diagnosis Pre-op Diagnosis * Unspecified fracture of upper end of unspecified humerus, initial encounter for closed fracture [S42.209A] Post-op Diagnosis * Unspecified fracture of upper end of unspecified humerus, initial encounter for closed fracture [S42.209A] Procedures AR TENODESIS LONG TENDON BICEPS [16077] AR ARTHROPLASTY GLENOHUMERAL JOINT TOTAL SHOULDER [16351] Surgeons * Indira Levy - Primary Resident/Fellow/Other Special Education Instructor: Surgeons and Role: * Saroj Simpson PA-C - Assisting * Vinh Guadarrama PA-C - Assisting Procedure Summary Anesthesia: General ASA: III Anesthesia Staff: Anesthesiologist: Kvng Juarez MD SISAL PICKER: GLENNY Dockery Estimated Blood Loss: 100mL Intra-op Medications: Administrations occurring from 1030 to 1200 on 08/10/23: * No intraprocedure medications in log * Anesthesia Record Intraprocedure I/O Totals Intake Phenylephrine Drip 11.39 mL The total shown is the total volume documented since Anesthesia Start was filed. lactated Ringer's infusion 1200.00 mL ceFAZolin in dextrose (iso-os) (Ancef) IVPB 2 g 100.00 mL Total Intake 1311.39 mL Specimen: No specimens collected Staff: Community Development Aide: Siobhan Cat RN Scrub Person: Alysa Pacheco Drains and/or Catheters: * None in log * Tourniquet Times: Implants: Implants Type Name Action Serial No. Joint BASEPLATE, LATERALIZED, +3MM, 25MM - [id number] Implanted [id number] Joint INSERT, REVERSED, 36MM X 9 X 12.5 - [id number] Implanted [id number] Joint TRAY, ASCEND FLEX REVERSED TH 0EC 0 - [id number] Implanted [id number] 98MM 3B LAMONT AEQUALIS ASCEND FLEX LONG PTC HUMERAL STEM 132.5-DEG (FORMERLY TORNIER) Implanted Findings: see procedure details Implants: Tornier Perform Reverse Humeral stem long size 3, Glenoid base plate size 25+3, glenosphere size 36, centered reversed tray, +0 thickness, +9 mm poly ethylene liner, 7 mm press-fit short post Findings: Comminuted impacted partially healed proximal humerus fracture Operative Indications: 78-year-old female that sustained a fall about 2 months prior. Sustained a comminuted right proximal humerus fracture was initially treated by my colleague with conservative treatment however had worsening alignment over the course of conservative treatment Is doing poorly with nonoperative treatment therefore patient wishes to proceed with operative treatment. Patient elected wishes to proceed with reverse total shoulder replacement possible biceps tenodesis. Particular risks with reverse shoulder arthroplasty include infection, need for revision surgery, stiffness, instability. Despite these risks, using shared informed decision making patient wishes to proceed. The risks of surgery were discussed including but not limited to the risks of medications given for surgery, the risk of blood loss during and after surgery that can lead to the need for blood products in certain situations, infection, damage to normal structures that can lead to usp problems of pain or dysfunction, wound healing complications, the possibility of nonunion/malunion of any osteotomies and late or chronic pain as a result of the surgical intervention. In addition potentially life threatening complications that can occur at the time of surgery and after surgery were discussed including but not limited to deep vein thrombosis, pulmonary embolism, myocardial infarction, stroke and . Procedure: The patient was met prior to surgery and the appropriate extremity was marked. The recent health history was reviewed and the patient was deemed appropriate to proceed with surgical intervention. The patient was transported to the operating room and was placed in a supine position. The patient underwent general anesthesia. Sequential compression devices were placed on both legs. The patient was placed into a semi-reclined beachchair position on the arthrex table. The legs were padded and placed into a comfortable postion. The head and neck were in a neutral position and all bony prominences were well padded. The patient was prepped and draped in the usual typical sterile orthopedic fashion. After prep and drape a timeout was completed with all staff involved. 2g ancef were administered prior to incision. All bony landmarks were marked out. A standard deltopectoral approach was performed. Sharp dissection was carried to the skin only and the scalpel was removed from the surgical field. Electrocautery was then carried down through the subcutaneous tissues to achieve hemostasis. The deltopectoral interval was identified. the cephalic vein was dissected and retracted laterally with the deltoid. The pectoralis major insertion was identified as well as the long head of the biceps tendon. Given proximal biceps tendinitis. We like to proceed with open biceps tenodesis. The biceps tendon was sewn to the pec insertion using a #2 FiberWire suture in a oxzwmp-nz-avoac fashion. I then released the fascia along the lateral aspect of the conjoined tendon and gently tract to the conjoined tendon to identify the subscapularis muscle. At the inferior aspect of the subscapularis insertion the anterior humeral circumflex vessels were identified and cauterized with Bovie. The biceps tendon was used to identify the rotator interval. A subscapularis peel was then performed taking great care along the inferior neck to stay subperiosteal as to not iatrogenically injure the nearby axillary nerve. The proximal humerus was dislocated and the head was inspected. The humeral head was impacted and significantly displaced this was partially healed. Of note the calcar was intact. Humeral head was removed in its entirety as this did not heal.there was a displaced greater tuberosity fragment that was identified and control was gained by placing in a dlldky-cz-kebce fashion #5 Ethibond sutures around this. These were later saved for tuberosity repair. The canal finder was then placed into the humeral canal followed by sounders. Sequential broaching was then performed until a good proximal fit was obtained. The appropriately sized broach was left in place. The humeral head protector was then placed. Attention was then made on to the glenoid. Anterior and posterior glenoid retractors were placed. The glenoid was inspected. The labrum was excised with Bovie cautery. Care was made to ensure when using the bovie along the inferior aspect of the glenoid to protect the axillary nerve. The subscapularis was mobilized anteriorly and posteriorly. Following adequate exposure of the glenoid, the 2.5 mm guidepin was fixed into the glenoid with bicortical fixation ensuring that the pin was placed within the center of the glenoid vault as preoperative planning suggested. It was ensured to place approximately neutral to 10 degrees of inferior tilt. The surface of the glenoid was then reamed to remove any underlying cartilage. A cannulated drill bit was then used to create a baseplate hole for the placement of the 7 mm peg. The glenoid surface was again cleaned with a combination of Irrisept and normal saline irrigation. Following adequate cleansing the Tornier perform reverse glenoid was placed. This was impacted into place. Using combination of cortical and locking screws the glenoid baseplate was secured with excellent fixation. The glenosphere was then placed onto the glenoid baseplate and impacted into place. The central screw was then tightened with excellent fixation about the glenoid sphere. A trial glenosphere and a trial humeral tray were placed and the shoulder was taken through range of motion to assess stability to confirm there was no impingement. When the trials were felt to be appropriate the final implants were opened. The bone was pulsatile lavaged the final glenosphere was placed followed by the humeral implant. The greater tuberosity fragment had minimal excursion however utilizing prior placed sutures were able to mobilize this as much as absolutely possible and did proceed with greater tuberosity repair. Using 2.5 mm drill hole the already placed sutures were fixed. Subscapularis was repaired with #2 fiberswire via 2 bone tunnels. The deltopectoral muscle interval was gently closed with an 0 Ethibond. Followed by 3-0 Vicryl in the dermis and a july followed by a adherent waterproof dressing. The patient was placed in a sling and stable to recovery. All counts were reported as correct. There were no complications during the surgery. The physician early childhood teacher assistant was present for the entire case. Given the nature of the procedure and disease process a skilled operating room surgical technologist was necessary for the case. The early childhood teacher assistant was necessary for retraction and helped directly facilitate completion of the surgery. A staff certified nurse midwife was at the back table managing instruments and supplies for the surgical procedure. Postoperative plan Nonweightbearing right upper extremity We will admit for observation overnight, IV antibiotics likely discharge in a.m. Sling Physical therapy for ambulation only on inpatient basis No PT for 6 weeks regarding the operative extremity Complications: None; patient tolerated the procedure well. Disposition: PACU - hemodynamically stable. Condition: stable Indira Levy documented in this encounter [facility] Work Phone: 08-10-2023 Note Formatting of this n ote is different from the original. TOTAL RIGHT ARTHROPLASTY SHOULDER REVERSE POSSIBLE BICEPS TENODESIS, LE TORNIER, REVIVE STEMS AVAILABLE , BRYNN PEREZ, beach chair, 23 HR. OBS/BEDDED OP (R) Operative Note Date: 08/10/2023 OR Location: [facility] Name: Felisha Joaquin, : 1945, Age: 78 y.o., , Sex: female Diagnosis Pre-op Diagnosis * Unspecified fracture of upper end of unspecified humerus, initial encounter for closed fracture [S42.209A] Post-op Diagnosis * Unspecified fracture of upper end of unspecified humerus, initial encounter for closed fracture [S42.209A] Procedures AR TENODESIS LONG TENDON BICEPS [76783] AR ARTHROPLASTY GLENOHUMERAL JOINT TOTAL SHOULDER [12670] Surgeons * Indira Levy - Primary Resident/Fellow/Other Special Education Instructor: Surgeons and Role: * Saroj Simpson PA-C - Assisting * Vinh Guadarrama PA-C - Assisting Procedure Summary Anesthesia: General ASA: III Anesthesia Staff: Anesthesiologist: Kvng Juarez MD SISAL PICKER: GLENNY Dockery Estimated Blood Loss: 100mL Intra-op Medications: Administrations occurring from 1030 to 1200 on 08/10/23: * No intraprocedure medications in log * Anesthesia Record Intraprocedure I/O Totals Intake Phenylephrine Drip 11.39 mL The total shown is the total volume documented since Anesthesia Start was filed. lactated Ringer's infusion 1200.00 mL ceFAZolin in dextrose (iso-os) (Ancef) IVPB 2 g 100.00 mL Total Intake 1311.39 mL Specimen: No specimens collected Staff: Community Development Aide: Siobhan Cat RN Scrub Person: Alysa Pacheco Drains and/or Catheters: * None in log * Tourniquet Times: Implants: Implants Type Name Action Serial No. Joint BASEPLATE, LATERALIZED, +3MM, 25MM - [id number] Implanted [id number] Joint INSERT, REVERSED, 36MM X 9 X 12.5 - [id number] Implanted [id number] Joint TRAY, ASCEND FLEX REVERSED TH 0EC 0 - [id number] Implanted [id number] 98MM 3B LAMONT AEQUALIS ASCEND FLEX LONG PTC HUMERAL STEM 132.5-DEG (FORMERLY TORNIER) Implanted Findings: see procedure details Implants: Tornier Perform Reverse Humeral stem long size 3, Glenoid base plate size 25+3, glenosphere size 36, centered reversed tray, +0 thickness, +9 mm poly ethylene liner, 7 mm press-fit short post Findings: Comminuted impacted partially healed proximal humerus fracture Operative Indications: 78-year-old female that sustained a fall about 2 months prior. Sustained a comminuted right proximal humerus fracture was initially treated by my colleague with conservative treatment however had worsening alignment over the course of conservative treatment Is doing poorly with nonoperative treatment therefore patient wishes to proceed with operative treatment. Patient elected wishes to proceed with reverse total shoulder replacement possible biceps tenodesis. Particular risks with reverse shoulder arthroplasty include infection, need for revision surgery, stiffness, instability. Despite these risks, using shared informed decision making patient wishes to proceed. The risks of surgery were discussed including but not limited to the risks of medications given for surgery, the risk of blood loss during and after surgery that can lead to the need for blood products in certain situations, infection, damage to normal structures that can lead to usp problems of pain or dysfunction, wound healing complications, the possibility of nonunion/malunion of any osteotomies and late or chronic pain as a result of the surgical intervention. In addition potentially life threatening complications that can occur at the time of surgery and after surgery were discussed including but not limited to deep vein thrombosis, pulmonary embolism, myocardial infarction, stroke and . Procedure: The patient was met prior to surgery and the appropriate extremity was marked. The recent health history was reviewed and the patient was deemed appropriate to proceed with surgical intervention. The patient was transported to the operating room and was placed in a supine position. The patient underwent general anesthesia. Sequential compression devices were placed on both legs. The patient was placed into a semi-reclined beachchair position on the arthrex table. The legs were padded and placed into a comfortable postion. The head and neck were in a neutral position and all bony prominences were well padded. The patient was prepped and draped in the usual typical sterile orthopedic fashion. After prep and drape a timeout was completed with all staff involved. 2g ancef were administered prior to incision. All bony landmarks were marked out. A standard deltopectoral approach was performed. Sharp dissection was carried to the skin only and the scalpel was removed from the surgical field. Electrocautery was then carried down through the subcutaneous tissues to achieve hemostasis. The deltopectoral interval was identified. the cephalic vein was dissected and retracted laterally with the deltoid. The pectoralis major insertion was identified as well as the long head of the biceps tendon. Given proximal biceps tendinitis. We like to proceed with open biceps tenodesis. The biceps tendon was sewn to the pec insertion using a #2 FiberWire suture in a hlmlni-es-kscee fashion. I then released the fascia along the lateral aspect of the conjoined tendon and gently tract to the conjoined tendon to identify the subscapularis muscle. At the inferior aspect of the subscapularis insertion the anterior humeral circumflex vessels were identified and cauterized with Bovie. The biceps tendon was used to identify the rotator interval. A subscapularis peel was then performed taking great care along the inferior neck to stay subperiosteal as to not iatrogenically injure the nearby axillary nerve. The proximal humerus was dislocated and the head was inspected. The humeral head was impacted and significantly displaced this was partially healed. Of note the calcar was intact. Humeral head was removed in its entirety as this did not heal.there was a displaced greater tuberosity fragment that was identified and control was gained by placing in a sjwejm-ev-hstjt fashion #5 Ethibond sutures around this. These were later saved for tuberosity repair. The canal finder was then placed into the humeral canal followed by sounders. Sequential broaching was then performed until a good proximal fit was obtained. The appropriately sized broach was left in place. The humeral head protector was then placed. Attention was then made on to the glenoid. Anterior and posterior glenoid retractors were placed. The glenoid was inspected. The labrum was excised with Bovie cautery. Care was made to ensure when using the bovie along the inferior aspect of the glenoid to protect the axillary nerve. The subscapularis was mobilized anteriorly and posteriorly. Following adequate exposure of the glenoid, the 2.5 mm guidepin was fixed into the glenoid with bicortical fixation ensuring that the pin was placed within the center of the glenoid vault as preoperative planning suggested. It was ensured to place approximately neutral to 10 degrees of inferior tilt. The surface of the glenoid was then reamed to remove any underlying cartilage. A cannulated drill bit was then used to create a baseplate hole for the placement of the 7 mm peg. The glenoid surface was again cleaned with a combination of Irrisept and normal saline irrigation. Following adequate cleansing the Tornier perform reverse glenoid was placed. This was impacted into place. Using combination of cortical and locking screws the glenoid baseplate was secured with excellent fixation. The glenosphere was then placed onto the glenoid baseplate and impacted into place. The central screw was then tightened with excellent fixation about the glenoid sphere. A trial glenosphere and a trial humeral tray were placed and the shoulder was taken through range of motion to assess stability to confirm there was no impingement. When the trials were felt to be appropriate the final implants were opened. The bone was pulsatile lavaged the final glenosphere was placed followed by the humeral implant. The greater tuberosity fragment had minimal excursion however utilizing prior placed sutures were able to mobilize this as much as absolutely possible and did proceed with greater tuberosity repair. Using 2.5 mm drill hole the already placed sutures were fixed. Subscapularis was repaired with #2 fiberswire via 2 bone tunnels. The deltopectoral muscle interval was gently closed with an 0 Ethibond. Followed by 3-0 Vicryl in the dermis and a july followed by a adherent waterproof dressing. The patient was placed in a sling and stable to recovery. All counts were reported as correct. There were no complications during the surgery. The physician early childhood teacher assistant was present for the entire case. Given the nature of the procedure and disease process a skilled operating room surgical technologist was necessary for the case. The early childhood teacher assistant was necessary for retraction and helped directly facilitate completion of the surgery. A staff certified nurse midwife was at the back table managing instruments and supplies for the surgical procedure. Postoperative plan Nonweightbearing right upper extremity We will admit for observation overnight, IV antibiotics likely discharge in a.m. Sling Physical therapy for ambulation only on inpatient basis No PT for 6 weeks regarding the operative extremity Complications: None; patient tolerated the procedure well. Disposition: PACU - hemodynamically stable. Condition: stable Indira Levy [facility] Work Phone: 08-10-2023 Attending History and physical note H&P reviewed. The patient was examined and there are no changes to the H&P. Source Note - Chyna Grimm APRN.VEGETABLE PREPARER - 07/13/2023 1:20 PM EDT Chief Complaint Patient presents with: Pre-Op Exam: Right Shoulder repair HPI Felisha Joaquin is a 78 year old female who presents here today for Above Complaints. Currently: On 06/07 had a fall and had a crack up near her right shoulder. Initially was told that a sling would be just as good as a surgery. However, she then stumbled and caught herself with this arm and crack is much worse, requiring surgery. Requesting preop exam for repair of her right shoulder. Surgery is scheduled at [facility] on 08/09. Has never had difficulty with anesthesia or difficult intubation. Denies CP, dizziness, SOB. Overall feels good except her arm. Is taking an ibuprofen rx for pain, this is helpful. Very difficult to dress and undress, bathe, all ADLs. Daughter is able to help with things she is unable to do. Has had 2 colonoscopies and wakes up with them. Had knee surgery and was able to feel the sawing. States she may need a little extra for sedation. Past medical history, appointments, medications, allergies reviewed. Previous Medical History PAST MEDICAL HISTORY Diagnosis Date Acid reflux Arrhythmia Arthritis Coronary artery disease Does use hearing aid Heart attack (HCC) Hypertension Osteopenia 07/2013 left hip on DEXA Rash of face S/P YAG capsulotomy, left 08/12/2022 Seasonal allergies Snoring Previous Surgical History PAST SURGICAL HISTORY Procedure Laterality Date COLONOSCOPY 2006 small polyp COLONOSCOPY FLX DX W/COLLJ SPEC WHEN PFRMD 08/02/14 Colonoscopy COLONOSCOPY FLX DX W/COLLJ SPEC WHEN PFRMD 11/27/2019 Colonoscopy ESOPHAGOGASTRODUODENOSCOPY TRANSORAL DIAGNOSTIC 11/27/2019 EGD PAST SURGICAL HISTORY OF 01/2013 left TKA PAST SURGICAL HISTORY OF 07/2012 right TKA PAST SURGICAL HISTORY OF 2006 ORIF wrist, right PAST SURGICAL HISTORY OF 2002 meniscectomy right knee XCAPSL CTRC RMVL INSJ IO LENS PROSTH W/O ECP Right 01/04/2020 Cataract Extraction with PC IOL 21.5 D XCAPSL CTRC RMVL INSJ IO LENS PROSTH W/O ECP Left Cataract Extraction with PC IOL 21.0 D Family History FAMILY HISTORY Problem Relation Age of Onset Arthritis Mother Heart Mother Hypertension Mother Arthritis Father Heart Father Hypertension Father Cancer Sister Breast Cancer Sister 56 No Ocular Disease No Family History Diabetes No Family History Patient Allergies ALLERGIES No Known Allergies Current Medications Current Outpatient Medications on File Prior to Visit Medication Sig pantoprazole DR (PROTONIX) 40 mg tablet TAKE 1 TABLET EVERY DAY prednisoLONE acetate (PRED FORTE, ECONOPRED PLUS) 1 % ophthalmic suspension Use 1 Drop in the right eye four times daily. ketorolac (ACULAR) 0.5 % ophthalmic solution Use 1 Drop in the right eye four times daily. docusate sodium (STOOL SOFTENER) 100 mg capsule Take 1 capsule by mouth twice daily. Fexofenadine-Pseudoephedrine (ELSIE-D 24 HOUR) 180-240 mg per 24 hr tablet Take 1 tablet by mouth once daily as needed (sinus/cold symptoms). KLOR-CON 10 10 mEq tablet Naproxen SR (EC-NAPROSYN) 500 mg EC tablet Take 1 tablet by mouth twice daily as needed. enalapril (VASOTEC) 2.5 mg tablet Take 2.5 mg by mouth once daily. atorvastatin (LIPITOR) 20 mg tablet Take 1 tablet by mouth once daily. For cholesterol. carvedilol (COREG) 3.125 mg tablet Take 1 tablet by mouth twice daily. aspirin, enteric coated 81 mg EC tablet Take 81 mg by mouth once daily. ascorbic acid, vitamin C, (VITAMIN C) 500 mg tablet Take 500 mg by mouth once daily. AMOXICILLIN ORAL Take 1 tablet by mouth twice daily. PROPYLENE GLYCOL/PEG 400 (BLINK TEARS LUBRICATING) Eye Drops Use 1 Drop in both eyes three times daily. VIT A/VIT C/VIT E/ZINC/COPPER (PRESERVISION AREDS ORAL) Take by mouth. (Patient not taking: No sig reported) LACTOBACILLUS ACIDOPHILUS (PROBIOTIC ORAL) Take by mouth. multivitamin tablet Take 1 tablet by mouth once daily. (Patient not taking: No sig reported) COMPOUNDED PRESCRIPTION preservision tablet daily No current facility-administered medications on file prior to visit. Social History Social History Tobacco Use Smoking status: Never Smokeless tobacco: Never Vaping Use Vaping Use: Never used Substance Use Topics Alcohol use: No Drug use: Never Review of Symptoms REVIEW OF SYSTEMS See HPI, otherwise negative EXAM: BP 136/78 (BP Site: Left Arm, BP Position: Sitting, BP Cuff Size: Regular Adult) Pulse 71 Wt 107.7 kg (237 lb 6.4 oz) SpO2 98% BMI 40.75 kg/m General Appearance: Well appearing, alert, in no acute distress, well-hydrated, well nourished.. Ears: External ears normal, canals clear. Nose/Sinuses: Nares normal, septum midline, mucosa normal, no drainage or sinus tenderness. Oropharynx: Lips, mucosa, and tongue normal, teeth and gums normal, oropharynx normal. Neck: Supple, no adenopathy; thyroid symmetric, normal size, no bruits. Lungs: Lungs clear to auscultation. No wheezing, rhonchi, rales.. Heart: RRR without murmur, gallop, or rubs. No ectopy. Musculoskeletal: right arm in sling. Fingers are warm, good cap refill. Peripheral Pulses: Normal. Neurologic: Gait normal. Reflexes normal and symmetric. Sensation grossly intact.. Psychiatric: pleasant, cooperative. Health Maintenance List RSV Vaccine(1 - 1-dose 60+ series) Never done Shingrix Vaccine(2 of 3) due on 01/03/2012 Annual PCP Team Chronic Disease Visit due on 02/16/2023 BP Controlled (<130/80) due on 02/16/2023 Depression Assessment due on 04/26/2023 Diabetes Screening due on 02/16/2025 DTaP,Tdap,Td Vaccine(2 - Td or Tdap) due on 08/29/2025 Bone Density Screening Completed Influenza Vaccine Completed Covid-19 Vaccine Completed Pneumococcal Vaccine: 65+ Completed Colorectal Cancer Screening Discontinued Advance Directive Discussion Discontinued Data reviewed Previous records, office notes ASSESSMENT/PLAN: 1. Preop examination - ICD9: V72.84, ICD10: Z01.818 (primary diagnosis) Clear for surgery from my standpoint once lab results are received. I do not have a form to fill out at this time. - CBC + DIFF - COMP METABOLIC PANEL - HGB A1C 2. Essential hypertension - ICD9: 401.9, ICD10: I10 - Controlled - Continue current medications - Recommend home blood pressure monitoring, to bring results to next visit - Encouraged sodium restriction, DASH or Mediterranean diet - Recommend regular aerobic exercise 3. Gastroesophageal reflux disease without esophagitis - ICD9: 530.81, ICD10: K21.9 - PANTOPRAZOLE 40 MG TABLET,DELAYED RELEASE Chyna Grimm APRN.CNP [facility] Work Phone: 08-10-2023 History and physical note H&P reviewed. The patient was examined and there are no changes to the H&P. Source Note - Chyna Grimm APRN.CNP - 07/13/2023 1:20 PM EDT Chief Complaint Patient presents with: Pre-Op Exam: Right Shoulder repair HPI Felisha Joaquin is a 78 year old female who presents here today for Above Complaints. Currently: On 06/07 had a fall and had a crack up near her right shoulder. Initially was told that a sling would be just as good as a surgery. However, she then stumbled and caught herself with this arm and crack is much worse, requiring surgery. Requesting preop exam for repair of her right shoulder. Surgery is scheduled at [facility] on 08/09. Has never had difficulty with anesthesia or difficult intubation. Denies CP, dizziness, SOB. Overall feels good except her arm. Is taking an ibuprofen rx for pain, this is helpful. Very difficult to dress and undress, bathe, all ADLs. Daughter is able to help with things she is unable to do. Has had 2 colonoscopies and wakes up with them. Had knee surgery and was able to feel the sawing. States she may need a little extra for sedation. Past medical history, appointments, medications, allergies reviewed. Previous Medical History PAST MEDICAL HISTORY Diagnosis Date Acid reflux Arrhythmia Arthritis Coronary artery disease Does use hearing aid Heart attack (HCC) Hypertension Osteopenia 07/2013 left hip on DEXA Rash of face S/P YAG capsulotomy, left 08/12/2022 Seasonal allergies Snoring Previous Surgical History PAST SURGICAL HISTORY Procedure Laterality Date COLONOSCOPY 2006 small polyp COLONOSCOPY FLX DX W/COLLJ SPEC WHEN PFRMD 08/02/14 Colonoscopy COLONOSCOPY FLX DX W/COLLJ SPEC WHEN PFRMD 11/27/2019 Colonoscopy ESOPHAGOGASTRODUODENOSCOPY TRANSORAL DIAGNOSTIC 11/27/2019 EGD PAST SURGICAL HISTORY OF 01/2013 left TKA PAST SURGICAL HISTORY OF 07/2012 right TKA PAST SURGICAL HISTORY OF 2006 ORIF wrist, right PAST SURGICAL HISTORY OF 2002 meniscectomy right knee XCAPSL CTRC RMVL INSJ IO LENS PROSTH W/O ECP Right 01/04/2020 Cataract Extraction with PC IOL 21.5 D XCAPSL CTRC RMVL INSJ IO LENS PROSTH W/O ECP Left Cataract Extraction with PC IOL 21.0 D Family History FAMILY HISTORY Problem Relation Age of Onset Arthritis Mother Heart Mother Hypertension Mother Arthritis Father Heart Father Hypertension Father Cancer Sister Breast Cancer Sister 56 No Ocular Disease No Family History Diabetes No Family History Patient Allergies ALLERGIES No Known Allergies Current Medications Current Outpatient Medications on File Prior to Visit Medication Sig pantoprazole DR (PROTONIX) 40 mg tablet TAKE 1 TABLET EVERY DAY prednisoLONE acetate (PRED FORTE, ECONOPRED PLUS) 1 % ophthalmic suspension Use 1 Drop in the right eye four times daily. ketorolac (ACULAR) 0.5 % ophthalmic solution Use 1 Drop in the right eye four times daily. docusate sodium (STOOL SOFTENER) 100 mg capsule Take 1 capsule by mouth twice daily. Fexofenadine-Pseudoephedrine (ELSIE-D 24 HOUR) 180-240 mg per 24 hr tablet Take 1 tablet by mouth once daily as needed (sinus/cold symptoms). KLOR-CON 10 10 mEq tablet Naproxen SR (EC-NAPROSYN) 500 mg EC tablet Take 1 tablet by mouth twice daily as needed. enalapril (VASOTEC) 2.5 mg tablet Take 2.5 mg by mouth once daily. atorvastatin (LIPITOR) 20 mg tablet Take 1 tablet by mouth once daily. For cholesterol. carvedilol (COREG) 3.125 mg tablet Take 1 tablet by mouth twice daily. aspirin, enteric coated 81 mg EC tablet Take 81 mg by mouth once daily. ascorbic acid, vitamin C, (VITAMIN C) 500 mg tablet Take 500 mg by mouth once daily. AMOXICILLIN ORAL Take 1 tablet by mouth twice daily. PROPYLENE GLYCOL/PEG 400 (BLINK TEARS LUBRICATING) Eye Drops Use 1 Drop in both eyes three times daily. VIT A/VIT C/VIT E/ZINC/COPPER (PRESERVISION AREDS ORAL) Take by mouth. (Patient not taking: No sig reported) LACTOBACILLUS ACIDOPHILUS (PROBIOTIC ORAL) Take by mouth. multivitamin tablet Take 1 tablet by mouth once daily. (Patient not taking: No sig reported) COMPOUNDED PRESCRIPTION preservision tablet daily No current facility-administered medications on file prior to visit. Social History Social History Tobacco Use Smoking status: Never Smokeless tobacco: Never Vaping Use Vaping Use: Never used Substance Use Topics Alcohol use: No Drug use: Never Review of Symptoms REVIEW OF SYSTEMS See HPI, otherwise negative EXAM: BP 136/78 (BP Site: Left Arm, BP Position: Sitting, BP Cuff Size: Regular Adult) Pulse 71 Wt 107.7 kg (237 lb 6.4 oz) SpO2 98% BMI 40.75 kg/m General Appearance: Well appearing, alert, in no acute distress, well-hydrated, well nourished.. Ears: External ears normal, canals clear. Nose/Sinuses: Nares normal, septum midline, mucosa normal, no drainage or sinus tenderness. Oropharynx: Lips, mucosa, and tongue normal, teeth and gums normal, oropharynx normal. Neck: Supple, no adenopathy; thyroid symmetric, normal size, no bruits. Lungs: Lungs clear to auscultation. No wheezing, rhonchi, rales.. Heart: RRR without murmur, gallop, or rubs. No ectopy. Musculoskeletal: right arm in sling. Fingers are warm, good cap refill. Peripheral Pulses: Normal. Neurologic: Gait normal. Reflexes normal and symmetric. Sensation grossly intact.. Psychiatric: pleasant, cooperative. Health Maintenance List RSV Vaccine(1 - 1-dose 60+ series) Never done Shingrix Vaccine(2 of 3) due on 01/03/2012 Annual PCP Team Chronic Disease Visit due on 02/16/2023 BP Controlled (<130/80) due on 02/16/2023 Depression Assessment due on 04/26/2023 Diabetes Screening due on 02/16/2025 DTaP,Tdap,Td Vaccine(2 - Td or Tdap) due on 08/29/2025 Bone Density Screening Completed Influenza Vaccine Completed Covid-19 Vaccine Completed Pneumococcal Vaccine: 65+ Completed Colorectal Cancer Screening Discontinued Advance Directive Discussion Discontinued Data reviewed Previous records, office notes ASSESSMENT/PLAN: 1. Preop examination - ICD9: V72.84, ICD10: Z01.818 (primary diagnosis) Clear for surgery from my standpoint once lab results are received. I do not have a form to fill out at this time. - CBC + DIFF - COMP METABOLIC PANEL - HGB A1C 2. Essential hypertension - ICD9: 401.9, ICD10: I10 - Controlled - Continue current medications - Recommend home blood pressure monitoring, to bring results to next visit - Encouraged sodium restriction, DASH or Mediterranean diet - Recommend regular aerobic exercise 3. Gastroesophageal reflux disease without esophagitis - ICD9: 530.81, ICD10: K21.9 - PANTOPRAZOLE 40 MG TABLET,DELAYED RELEASE Chyna Grimm APRN.VEGETABLE PREPARER documented in this encounter [facility] Work Phone: 08-09-2023 History of Presen t illness Narrative Patient with known right displaced comminuted proximal humerus fracture with worsening over alignment.. Risk benefits alternatives to treatment were discussed with patient in detail using shared inform decision making patient wished to proceed with reverse shoulder arthroplasty for fracture. Discussed that patient will likely never have the same shoulder that she did prior to injury she will always have deficits as a result. Risks which include but are not limited to nerve injury, vascular injury, tendon injury, chronic pain, infection, wound healing problems, stiffness, instability and failure and need for revision surgery were discussed. We discussed that typically shoulder arthroplasty require inpatient hospital stay. All these risks and complications were discussed with the patient. Discussed prolonged course of recovery after surgery that will require prolonged physical therapy and that full recovery can take up to a year duration. Discussed use of sling after surgery. As well as discussed activities avoid after surgery. documented in this encounter [facility] Work Phone: 08-09-2023 Miscellaneous Notes Faxed Nicci Merino MA Completed and placed in the outbox in our office. Chyna Grimm APRN.CNP [facility]- reports the clearance form they received back, had a date, but no signature. Reports she faxed it back to provider on Wednesday to complete, and return fax to her at fax # [phone]. Reports she needs this today, as patient's surgery is scheduled for tomorrow (Right Total Shoulder Replacement). If does not receive the completed clearance form, will have to cancel today. Needs provider to look at the bloodwork, she faxed over, state patient is cleared, sign and date the form, and fax back to her. Please phone Sigrid to let her know document was received, signed, and faxed back to her: phone # [phone] documented in this encounter [facility] 07-16-2023 Miscellaneous Notes Noted, thank you. Chyna Grimm APRN.CRESENCIO Patient has been identified by name and date of : Yes, Provider Dr. Mendiola Date 07/16/23 Time 11:29 Type of form: pre op form Form received via: Fax When form is completed, fax form to fax number provided. Form has been forwarded to: Provider's desk. Provider name: Chyna Stephenson LPN documented in this encounter [facility] 07-13-2023 Note HNO ID: [id number] Author: CHYNA GRIMM APRN.CRESENCIO Service: ? Author Type: Nurse Practitioner Type: Progress Notes Filed: 07/14/2023 07:24 Note Text: Chief Complaint Patient presents with: Pre-Op Exam: Right Shoulder repair HPI Felisha Joaquin is a 78 year old female who presents here today for Above Complaints. Currently: On 06/07 had a fall and had a crack up near her right shoulder. Initially was told that a sling would be just as good as a surgery. However, she then stumbled and caught herself with this arm and crack is much worse, requiring surgery. Requesting preop exam for repair of her right shoulder. Surgery is scheduled at [facility] on 08/09. Has never had difficulty with anesthesia or difficult intubation. Denies CP, dizziness, SOB. Overall feels good except her arm. Is taking an ibuprofen rx for pain, this is helpful. Very difficult to dress and undress, bathe, all ADLs. Daughter is able to help with things she is unable to do. Has had 2 colonoscopies and wakes up with them. Had knee surgery and was able to feel the sawing. States she may need a little extra for sedation. Past medical history, appointments, medications, allergies reviewed. Previous Medical History PAST MEDICAL HISTORY Diagnosis Date Acid reflux Arrhythmia Arthritis Coronary artery disease Does use hearing aid Heart attack (HCC) Hypertension Osteopenia 07/2013 left hip on DEXA Rash of face S/P YAG capsulotomy, left 08/12/2022 Seasonal allergies Snoring Previous Surgical History PAST SURGICAL HISTORY Procedure Laterality Date COLONOSCOPY 2006 small polyp COLONOSCOPY FLX DX W/COLLJ SPEC WHEN PFRMD 08/02/14 Colonoscopy COLONOSCOPY FLX DX W/COLLJ SPEC WHEN PFRMD 11/27/2019 Colonoscopy ESOPHAGOGASTRODUODENOSCOPY TRANSORAL DIAGNOSTIC 11/27/2019 EGD PAST SURGICAL HISTORY OF 01/2013 left TKA PAST SURGICAL HISTORY OF 07/2012 right TKA PAST SURGICAL HISTORY OF 2006 ORIF wrist, right PAST SURGICAL HISTORY OF 2002 meniscectomy right knee XCAPSL CTRC RMVL INSJ IO LENS PROSTH W/O ECP Right 01/04/2020 Cataract Extraction with PC IOL 21.5 D XCAPSL CTRC RMVL INSJ IO LENS PROSTH W/O ECP Left Cataract Extraction with PC IOL 21.0 D Family History FAMILY HISTORY Problem Relation Age of Onset Arthritis Mother Heart Mother Hypertension Mother Arthritis Father Heart Father Hypertension Father Cancer Sister Breast Cancer Sister 56 No Ocular Disease No Family History Diabetes No Family History Patient Allergies ALLERGIES No Known Allergies Current Medications Current Outpatient Medications on File Prior to Visit Medication Sig pantoprazole DR (PROTONIX) 40 mg tablet TAKE 1 TABLET EVERY DAY prednisoLONE acetate (PRED FORTE, ECONOPRED PLUS) 1 % ophthalmic suspension Use 1 Drop in the right eye four times daily. ketorolac (ACULAR) 0.5 % ophthalmic solution Use 1 Drop in the right eye four times daily. docusate sodium (STOOL SOFTENER) 100 mg capsule Take 1 capsule by mouth twice daily. Fexofenadine-Pseudoephedrine (ELSIE-D 24 HOUR) 180-240 mg per 24 hr tablet Take 1 tablet by mouth once daily as needed (sinus/cold symptoms). KLOR-CON 10 10 mEq tablet Naproxen SR (EC-NAPROSYN) 500 mg EC tablet Take 1 tablet by mouth twice daily as needed. enalapril (VASOTEC) 2.5 mg tablet Take 2.5 mg by mouth once daily. atorvastatin (LIPITOR) 20 mg tablet Take 1 tablet by mouth once daily. For cholesterol. carvedilol (COREG) 3.125 mg tablet Take 1 tablet by mouth twice daily. aspirin, enteric coated 81 mg EC tablet Take 81 mg by mouth once daily. ascorbic acid, vitamin C, (VITAMIN C) 500 mg tablet Take 500 mg by mouth once daily. AMOXICILLIN ORAL Take 1 tablet by mouth twice daily. PROPYLENE GLYCOL/PEG 400 (BLINK TEARS LUBRICATING) Eye Drops Use 1 Drop in both eyes three times daily. VIT A/VIT C/VIT E/ZINC/COPPER (PRESERVISION AREDS ORAL) Take by mouth. (Patient not taking: No sig reported) LACTOBACILLUS ACIDOPHILUS (PROBIOTIC ORAL) Take by mouth. multivitamin tablet Take 1 tablet by mouth once daily. (Patient not taking: No sig reported) COMPOUNDED PRESCRIPTION preservision tablet daily No current facility-administered medications on file prior to visit. Social History Social History Tobacco Use Smoking status: Never Smokeless tobacco: Never Vaping Use Vaping Use: Never used Substance Use Topics Alcohol use: No Drug use: Never Review of Symptoms REVIEW OF SYSTEMS See HPI, otherwise negative EXAM: BP 136/78 (BP Site: Left Arm, BP Position: Sitting, BP Cuff Size: Regular Adult) Pulse 71 Wt 107.7 kg (237 lb 6.4 oz) SpO2 98% BMI 40.75 kg/m? General Appearance: Well appearing, alert, in no acute distress, well-hydrated, well nourished.. Ears: External ears normal, canals clear. Nose/Sinuses: Nares normal, septum midline, mucosa normal, no drainage or sinus tenderness. Oropharynx: Lips, mucosa, (more content not included)... [facility] 07-13-2023 History of Presen t illness Narrative Chief Complaint Patient presents with: Pre-Op Exam: Right Shoulder repair HPI Felisha Joaquin is a 78 year old female who presents here today for Above Complaints. Currently: On 06/07 had a fall and had a crack up near her right shoulder. Initially was told that a sling would be just as good as a surgery. However, she then stumbled and caught herself with this arm and crack is much worse, requiring surgery. Requesting preop exam for repair of her right shoulder. Surgery is scheduled at [facility] on 08/09. Has never had difficulty with anesthesia or difficult intubation. Denies CP, dizziness, SOB. Overall feels good except her arm. Is taking an ibuprofen rx for pain, this is helpful. Very difficult to dress and undress, bathe, all ADLs. Daughter is able to help with things she is unable to do. Has had 2 colonoscopies and wakes up with them. Had knee surgery and was able to feel the sawing. States she may need a little extra for sedation. Past medical history, appointments, medications, allergies reviewed. Previous Medical History PAST MEDICAL HISTORY Diagnosis Date Acid reflux Arrhythmia Arthritis Coronary artery disease Does use hearing aid Heart attack (HCC) Hypertension Osteopenia 07/2013 left hip on DEXA Rash of face S/P YAG capsulotomy, left 08/12/2022 Seasonal allergies Snoring Previous Surgical History PAST SURGICAL HISTORY Procedure Laterality Date COLONOSCOPY 2006 small polyp COLONOSCOPY FLX DX W/COLLJ SPEC WHEN PFRMD 08/02/14 Colonoscopy COLONOSCOPY FLX DX W/COLLJ SPEC WHEN PFRMD 11/27/2019 Colonoscopy ESOPHAGOGASTRODUODENOSCOPY TRANSORAL DIAGNOSTIC 11/27/2019 EGD PAST SURGICAL HISTORY OF 01/2013 left TKA PAST SURGICAL HISTORY OF 07/2012 right TKA PAST SURGICAL HISTORY OF 2006 ORIF wrist, right PAST SURGICAL HISTORY OF 2002 meniscectomy right knee XCAPSL CTRC RMVL INSJ IO LENS PROSTH W/O ECP Right 01/04/2020 Cataract Extraction with PC IOL 21.5 D XCAPSL CTRC RMVL INSJ IO LENS PROSTH W/O ECP Left Cataract Extraction with PC IOL 21.0 D Family History FAMILY HISTORY Problem Relation Age of Onset Arthritis Mother Heart Mother Hypertension Mother Arthritis Father Heart Father Hypertension Father Cancer Sister Breast Cancer Sister 56 No Ocular Disease No Family History Diabetes No Family History Patient Allergies ALLERGIES No Known Allergies Current Medications Current Outpatient Medications on File Prior to Visit Medication Sig pantoprazole DR (PROTONIX) 40 mg tablet TAKE 1 TABLET EVERY DAY prednisoLONE acetate (PRED FORTE, ECONOPRED PLUS) 1 % ophthalmic suspension Use 1 Drop in the right eye four times daily. ketorolac (ACULAR) 0.5 % ophthalmic solution Use 1 Drop in the right eye four times daily. docusate sodium (STOOL SOFTENER) 100 mg capsule Take 1 capsule by mouth twice daily. Fexofenadine-Pseudoephedrine (ELSIE-D 24 HOUR) 180-240 mg per 24 hr tablet Take 1 tablet by mouth once daily as needed (sinus/cold symptoms). KLOR-CON 10 10 mEq tablet Naproxen SR (EC-NAPROSYN) 500 mg EC tablet Take 1 tablet by mouth twice daily as needed. enalapril (VASOTEC) 2.5 mg tablet Take 2.5 mg by mouth once daily. atorvastatin (LIPITOR) 20 mg tablet Take 1 tablet by mouth once daily. For cholesterol. carvedilol (COREG) 3.125 mg tablet Take 1 tablet by mouth twice daily. aspirin, enteric coated 81 mg EC tablet Take 81 mg by mouth once daily. ascorbic acid, vitamin C, (VITAMIN C) 500 mg tablet Take 500 mg by mouth once daily. AMOXICILLIN ORAL Take 1 tablet by mouth twice daily. PROPYLENE GLYCOL/PEG 400 (BLINK TEARS LUBRICATING) Eye Drops Use 1 Drop in both eyes three times daily. VIT A/VIT C/VIT E/ZINC/COPPER (PRESERVISION AREDS ORAL) Take by mouth. (Patient not taking: No sig reported) LACTOBACILLUS ACIDOPHILUS (PROBIOTIC ORAL) Take by mouth. multivitamin tablet Take 1 tablet by mouth once daily. (Patient not taking: No sig reported) COMPOUNDED PRESCRIPTION preservision tablet daily No current facility-administered medications on file prior to visit. Social History Social History Tobacco Use Smoking status: Never Smokeless tobacco: Never Vaping Use Vaping Use: Never used Substance Use Topics Alcohol use: No Drug use: Never Review of Symptoms REVIEW OF SYSTEMS See HPI, otherwise negative EXAM: BP 136/78 (BP Site: Left Arm, BP Position: Sitting, BP Cuff Size: Regular Adult) Pulse 71 Wt 107.7 kg (237 lb 6.4 oz) SpO2 98% BMI 40.75 kg/m General Appearance: Well appearing, alert, in no acute distress, well-hydrated, well nourished.. Ears: External ears normal, canals clear. Nose/Sinuses: Nares normal, septum midline, mucosa normal, no drainage or sinus tenderness. Oropharynx: Lips, mucosa, and tongue normal, teeth and gums normal, oropharynx normal. Neck: Supple, no adenopathy; thyroid symmetric, normal size, no bruits. Lungs: Lungs clear to auscultation. No wheezing, rhonchi, rales.. Heart: RRR without murmur, gallop, or rubs. No ectopy. Musculoskeletal: right arm in sling. Fingers are warm, good cap refill. Peripheral Pulses: Normal. Neurologic: Gait normal. Reflexes normal and symmetric. Sensation grossly intact.. Psychiatric: pleasant, cooperative. Health Maintenance List RSV Vaccine(1 - 1-dose 60+ series) Never done Shingrix Vaccine(2 of 3) due on 01/03/2012 Annual PCP Team Chronic Disease Visit due on 02/16/2023 BP Controlled (<130/80) due on 02/16/2023 Depression Assessment due on 04/26/2023 Diabetes Screening due on 02/16/2025 DTaP,Tdap,Td Vaccine(2 - Td or Tdap) due on 08/29/2025 Bone Density Screening Completed Influenza Vaccine Completed Covid-19 Vaccine Completed Pneumococcal Vaccine: 65+ Completed Colorectal Cancer Screening Discontinued Advance Directive Discussion Discontinued Data reviewed Previous records, office notes ASSESSMENT/PLAN: 1. Preop examination - ICD9: V72.84, ICD10: Z01.818 (primary diagnosis) Clear for surgery from my standpoint once lab results are received. I do not have a form to fill out at this time. - CBC + DIFF - COMP METABOLIC PANEL - HGB A1C 2. Essential hypertension - ICD9: 401.9, ICD10: I10 - Controlled - Continue current medications - Recommend home blood pressure monitoring, to bring results to next visit - Encouraged sodium restriction, DASH or Mediterranean diet - Recommend regular aerobic exercise 3. Gastroesophageal reflux disease without esophagitis - ICD9: 530.81, ICD10: K21.9 - PANTOPRAZOLE 40 MG TABLET,DELAYED RELEASE Chyna Grimm APRN.VEGETABLE PREPARER documented in this encounter [facility] 07-12-2023 History of Presen t illness Narrative Chief Complaint Patient presents with Right Shoulder - New Patient Visit Referral to discuss hemiarthroplasty of the right shoulder Injury on 06/07/23 X-rays at HPI 78-year-old female presents today for evaluation of her right shoulder. She has a known history of right proximal humerus fracture treated conservatively. Initial injury did occur 06/07/2023 however she did have recent fall which had resulted in worsening overall alignment. As patient had significant increased displacement and was failing conservative treatment due to worsening overall alignment patient was recommended that she follow-up with me by my colleague Dr. Gracia for discussion of possible reverse shoulder arthroplasty for fracture. History reviewed. No pertinent past medical history. History reviewed. No pertinent surgical history. No Known Allergies Physical exam General: Alert and oriented to place, person, and time. No acute distress and breathing comfortably; pleasant and cooperative with the examination. HEENT: Head is normocephalic and atraumatic. Neck: Supple, no visible swelling. Cardiovascular: Good perfusion to the affected extremity. Lungs: No audible wheezing or labored breathing. Abdomen: Nondistended HEME/Lymph : No visible abnormalities bilateral lower extremity Extremity: Focused examination right shoulder overlying skin is clean dry intact ecchymosis about the anterior aspect of the shoulder hand is warm and well-perfused compartments are soft and compressible neurovascular intact. Limited range of motion of the shoulder. Active forward elevation 0 to 30 degrees with pain and discomfort as expected secondary to known fracture. No pain with palpation about the elbow hand or wrist. Diagnostics: XR shoulder right 2+ views Result Date: 07/03/2023 Interpreted By: Aldair Fatima, STUDY: XR SHOULDER RIGHT 2+ VIEWS; ; 07/02/2023 9:55 am INDICATION: Signs/Symptoms:PAIN. COMPARISON: 06/18/2023. ACCESSION NUMBER(S): [id number] ORDERING CLINICIAN: SAM GRACIA FINDINGS: Right shoulder, three views Redemonstration of a comminuted fracture through the proximal humerus with moderate displacement and angulation. There is increased callus formation and sclerosis. There is no dislocation. Subacute healing proximal humeral fracture deformity without change in alignment. MACRO: None Signed by: Aldair Fatima 07/03/2023 9:13 AM Dictation workstation: [id number] XR shoulder right 2+ views Result Date: 06/19/2023 Interpreted By: Jose Russell, STUDY: XR SHOULDER RIGHT 2+ VIEWS; XR HUMERUS RIGHT INDICATION: Signs/Symptoms:S/P FRACTURE. COMPARISON: June 07, 2023 ACCESSION NUMBER(S): [id number]; [id number] ORDERING CLINICIAN: SAM GRACIA FINDINGS: Surgical neck right proximal humeral fracture again noted with greater tuberosity component. There is some medial displacement of the distal fragment which looks to have slightly increased from prior study. No glenohumeral dislocation seen. Suggested slight amount of increased displacement of the surgical neck right greater tuberosity fracture when compared to prior study. Signed by: Jose Russell 06/19/2023 9:36 AM Dictation workstation: [id number] XR humerus right Result Date: 06/19/2023 Interpreted By: Jose Russell, STUDY: XR SHOULDER RIGHT 2+ VIEWS; XR HUMERUS RIGHT INDICATION: Signs/Symptoms:S/P FRACTURE. COMPARISON: June 07, 2023 ACCESSION NUMBER(S): [id number]; [id number] ORDERING CLINICIAN: SAM GRACIA FINDINGS: Surgical neck right proximal humeral fracture again noted with greater tuberosity component. There is some medial displacement of the distal fragment which looks to have slightly increased from prior study. No glenohumeral dislocation seen. Suggested slight amount of increased displacement of the surgical neck right greater tuberosity fracture when compared to prior study. Signed by: Jose Russell 06/19/2023 9:36 AM Dictation workstation: [id number] Procedure: Procedures Assessment: 78-year-old female with displaced comminuted right proximal humerus fracture Treatment plan: The natural history of the condition and its associated treatment alternatives including surgical and nonsurgical options were discussed with the patient at length. I had a long discussion with patient and daughter as to the current nature of injury discussed that this shoulder will never be the same and that she will have lifelong issues and limited range of motion. Discussed conflicting evidence of current literature regarding reverse shoulder arthroplasty versus proceeding with conservative treatment. Risk benefits alternative treatment discussed using shared informed decision making they wish to proceed with reverse shoulder arthroplasty. Given this we will proceed with reverse at earliest convenience will obtain medical clearance prior to proceeding. Discussed that she will always have limitations regarding the range of motion of her shoulder goal is to make her as functional as possible. Discussed that typical functional outcome is about 90 degrees this was not guaranteed. Given likely osteoporosis and time from injury I do think proceeding with open reduction internal fixation is likely futile in nature. Based on history and physical exam as well as imaging findings recommend surgical intervention to include right reverse shoulder arthroplasty for fracture. Risk benefits and alternatives to treatment were discussed. Particular risks of the surgery include infection, neurovascular compromise, failure of hardware, need for revision surgery, instability. Despite these risks, patient wishes to proceed. Postoperative restrictions and limitations were reviewed in detail. Patient will schedule surgery at their earliest convenience. Patient was given Percocet for postoperative pain control. We will pick this up prior to surgery so that they are not looking for during the day of surgery. I have personally reviewed the OARRS report for this patient. This report is scanned into the electronic medical record. I have considered the risks of abuse, dependence, addiction, and diversion. They currently report a pain of 8. Regarding DVT prophylaxis, recommend generalized ambulation The risks of surgery were discussed including but not limited to the risks of medications given for surgery, the risk of blood loss during and after surgery that can lead to the need for blood products in certain situations, infection, damage to normal structures that can lead to usp problems of pain or dysfunction, wound healing complications, the possibility of nonunion/malunion of any osteotomies and late or chronic pain as a result of the surgical intervention. In addition potentially life threatening complications that can occur at the time of surgery and after surgery were discussed including but not limited to deep vein thrombosis, pulmonary embolism, myocardial infarction, stroke and . All of the patient's questions were answered. documented in this encounter [facility] Work Phone: 07-02-2023 Evaluation + Plan note Associated Problem(s): Closed 3-part fracture of proximal humerus with routine healing, right Assessment: 3-1/2 weeks status post a 06/07/2023 fall with a proximal humerus fracture. Patient states that she had been doing well with respect to pain and maybe was out of her sling when she started to fall and reached out with her affected right arm. X-rays today show the fracture to be more displaced. Given that the articular surface is significantly displaced I do not expect that she will heal this in a manner that we will allow her to recover good function. Plan: Referral to Dr. Alfredo for a hemiarthroplasty of the right shoulder. Follow-up with me on a as needed basis. If I can help in a logistical manner by seeing her postoperatively I am happy to do so. [facility] Work Phone: 07-02-2023 Miscellaneous Notes Associated Problem(s): Closed 3-part fracture of proximal humerus with routine healing, right Assessment: 3-1/2 weeks status post a 06/07/2023 fall with a proximal humerus fracture. Patient states that she had been doing well with respect to pain and maybe was out of her sling when she started to fall and reached out with her affected right arm. X-rays today show the fracture to be more displaced. Given that the articular surface is significantly displaced I do not expect that she will heal this in a manner that we will allow her to recover good function. Plan: Referral to Dr. Alfredo for a hemiarthroplasty of the right shoulder. Follow-up with me on a as needed basis. If I can help in a logistical manner by seeing her postoperatively I am happy to do so. documented in this encounter [facility] Work Phone: 07-02-2023 History of Presen t illness Narrative Assessment/Plan Encounter Diagnoses: Closed 3-part fracture of proximal humerus with routine healing, right Closed 3-part fracture of proximal humerus with routine healing, right Assessment: 3-1/2 weeks status post a 06/07/2023 fall with a proximal humerus fracture. Patient states that she had been doing well with respect to pain and maybe was out of her sling when she started to fall and reached out with her affected right arm. X-rays today show the fracture to be more displaced. Given that the articular surface is significantly displaced I do not expect that she will heal this in a manner that we will allow her to recover good function. Plan: Referral to Dr. Alfredo for a hemiarthroplasty of the right shoulder. Follow-up with me on a as needed basis. If I can help in a logistical manner by seeing her postoperatively I am happy to do so. Subjective Patient ID: Felisha Joaquin is a 78 y.o. female. Chief Complaint: Pain of the Right Shoulder (FELL 06-07-23) Last Surgery: No surgery found Last Surgery Date: No surgery found HPI 78-year-old who is now months status post her proximal humerus fracture. Seem to be making some progress at her last visit but in the interval to fall catching herself with her right upper extremity. This aggravated her pain and on x-ray showed worsening of the fracture. At this point the fracture has declared itself to Not be amenable to closed treatment. OBJECTIVE: ORTHO EXAM Right shoulder Normal global swelling about the right shoulder. The distal bruising is resolving. Is normal sensation and neurovascular distally. IMAGE RESULTS: XR shoulder right 2+ views, XR humerus right Narrative: Interpreted By: Jose Russell, STUDY: XR SHOULDER RIGHT 2+ VIEWS; XR HUMERUS RIGHT INDICATION: Signs/Symptoms:S/P FRACTURE. COMPARISON: June 07, 2023 ACCESSION NUMBER(S): [id number]; [id number] ORDERING CLINICIAN: SAM GRACIA FINDINGS: Surgical neck right proximal humeral fracture again noted with greater tuberosity component. There is some medial displacement of the distal fragment which looks to have slightly increased from prior study. No glenohumeral dislocation seen. Impression: Suggested slight amount of increased displacement of the surgical neck right greater tuberosity fracture when compared to prior study. Signed by: Jose Russell 06/19/2023 9:36 AM Dictation workstation: [id number] X-rays today show the articular surface to be completely dissociated from the humeral shaft. This is further displaced. ULTRASOUND none Procedures Orders Placed This Encounter XR shoulder right 2+ views Point of Care Ultrasound documented in this encounter [facility] Work Phone: 06-18-2023 Evaluation + Plan note Associated Problem(s): Closed 3-part fracture of proximal humerus with routine healing, right Assessment: Patient is 11 days status post a fall with a right proximal humerus three-part fracture. This is mildly displaced. It is in a position that would allow for continued closed treatment. Plan: I discussed the risks and benefits of hemiarthroplasty versus closed treatment with the patient. She would like to maintain close treatment for now. She understands that in the future she may require a more extensive reconstruction possibly including a hemiarthroplasty or total shoulder replacement. She did not need more narcotic pain medication as she feels the Advil is actually more effective for her. She tolerates this well. Motrin 600 mg p.o. twice daily or 3 times daily as needed pain with meals Sling and swath she has 1 and it is well-fitting. She can come out of the sling and swath briefly and do elbow extension and flexion. She could also do very gentle pendulums and I demonstrated these to her. Follow-up in 2 weeks for reevaluation with new x-rays. [facility] Work Phone: 06-18-2023 Miscellaneous Notes Associated Problem(s): Closed 3-part fracture of proximal humerus with routine healing, right Assessment: Patient is 11 days status post a fall with a right proximal humerus three-part fracture. This is mildly displaced. It is in a position that would allow for continued closed treatment. Plan: I discussed the risks and benefits of hemiarthroplasty versus closed treatment with the patient. She would like to maintain close treatment for now. She understands that in the future she may require a more extensive reconstruction possibly including a hemiarthroplasty or total shoulder replacement. She did not need more narcotic pain medication as she feels the Advil is actually more effective for her. She tolerates this well. Motrin 600 mg p.o. twice daily or 3 times daily as needed pain with meals Sling and swath she has 1 and it is well-fitting. She can come out of the sling and swath briefly and do elbow extension and flexion. She could also do very gentle pendulums and I demonstrated these to her. Follow-up in 2 weeks for reevaluation with new x-rays. documented in this encounter [facility] Work Phone: 06-18-2023 History of Presen t illness Narrative Assessment/Plan Encounter Diagnoses: Closed 3-part fracture of proximal humerus with routine healing, right Closed 3-part fracture of proximal humerus with routine healing, right Assessment: Patient is 11 days status post a fall with a right proximal humerus three-part fracture. This is mildly displaced. It is in a position that would allow for continued closed treatment. Plan: I discussed the risks and benefits of hemiarthroplasty versus closed treatment with the patient. She would like to maintain close treatment for now. She understands that in the future she may require a more extensive reconstruction possibly including a hemiarthroplasty or total shoulder replacement. She did not need more narcotic pain medication as she feels the Advil is actually more effective for her. She tolerates this well. Motrin 600 mg p.o. twice daily or 3 times daily as needed pain with meals Sling and swath she has 1 and it is well-fitting. She can come out of the sling and swath briefly and do elbow extension and flexion. She could also do very gentle pendulums and I demonstrated these to her. Follow-up in 2 weeks for reevaluation with new x-rays. Subjective Patient ID: Felisha Joaquin is a 78 y.o. female. Chief Complaint: Follow-up and Fracture of the Right Shoulder (Patient is here for FUV for Right Humerus fracture that occurred on 06/07/2023.) Last Surgery: No surgery found Last Surgery Date: No surgery found HPI 78-year-old who is 11 days status post a proximal humerus fracture. This is a three-part fracture with moderate displacement. The humerus is somewhat anteriorly displaced referable to the humeral head. She is having minimal pain. She is actively moving the shoulder with minimal guarding. She has a moderate amount of dependent hematoma and edema about the elbow. OBJECTIVE: ORTHO EXAM Right shoulder and humerus. Neurovascularly intact distally. She was able to extend her elbow to near full and flex to about 120. Gentle internal/external rotation suggests motion of the proximal fragment with the humeral shaft. Mild to moderate tenderness over the proximal humerus. She forward flex to about 30 degrees abducted to about 30 degrees and extended to 20 to 30 degrees with little pain. X-rays show an offset anteriorly of about 50% of the humeral shaft. The articular surface is inferior subluxed somewhat with respect to the glenoid so-called pseudosubluxation. The position of the fracture is relatively unchanged from the x-rays I evaluated after her last visit. IMAGE RESULTS: XR humerus right Narrative: Interpreted By: Jose Armando Pearce, STUDY: XR HUMERUS RIGHT; ; 06/10/2023 2:11 pm INDICATION: Signs/Symptoms:S/P FX. COMPARISON: 06/07/2023 ACCESSION NUMBER(S): [id number] ORDERING CLINICIAN: SAM GRACIA FINDINGS: Redemonstration offset fracture of the proximal humerus which appears to involve both the humeral neck and greater tuberosity. Impression: Similar appearing offset fracture of the proximal humerus. MACRO: None Signed by: Jose Armando Pearce 06/11/2023 10:25 PM Dictation workstation: [id number] ULTRASOUND none Procedures Orders Placed This Encounter Point of Care Ultrasound XR shoulder right 2+ views XR humerus right documented in this encounter [facility] Work Phone: 06-10-2023 Evaluation + Plan note Associated Problem(s): Closed 3-part fracture of proximal humerus with routine healing, right Assessment: Patient is 3 days status post a fall with a right proximal humerus three-part fracture. This is mildly displaced. It is in an acceptable position for closed treatment. Plan: She did not need more narcotic pain medication as she feels the Advil is actually more effective for her. She tolerates this well. Motrin 600 mg p.o. twice daily or 3 times daily as needed pain with meals Sling and swath she has 1 and it is well-fitting. X-rays in the next 24 to 48 hours. Our local x-ray is out because of the transformer failure She will follow-up in a week for reevaluation with new x-rays. [facility] Work Phone: 06-10-2023 Miscellaneous Notes Associated Problem(s): Closed 3-part fracture of proximal humerus with routine healing, right Assessment: Patient is 3 days status post a fall with a right proximal humerus three-part fracture. This is mildly displaced. It is in an acceptable position for closed treatment. Plan: She did not need more narcotic pain medication as she feels the Advil is actually more effective for her. She tolerates this well. Motrin 600 mg p.o. twice daily or 3 times daily as needed pain with meals Sling and swath she has 1 and it is well-fitting. X-rays in the next 24 to 48 hours. Our local x-ray is out because of the transformer failure She will follow-up in a week for reevaluation with new x-rays. documented in this encounter [facility] Work Phone: 06-10-2023 History of Presen t illness Narrative Assessment/Plan Encounter Diagnoses: Closed 3-part fracture of proximal humerus with routine healing, right Right arm fracture, closed, initial encounter Closed 3-part fracture of proximal humerus with routine healing, right Assessment: Patient is 3 days status post a fall with a right proximal humerus three-part fracture. This is mildly displaced. It is in an acceptable position for closed treatment. Plan: She did not need more narcotic pain medication as she feels the Advil is actually more effective for her. She tolerates this well. Motrin 600 mg p.o. twice daily or 3 times daily as needed pain with meals Sling and swath she has 1 and it is well-fitting. X-rays in the next 24 to 48 hours. Our local x-ray is out because of the transformer failure She will follow-up in a week for reevaluation with new x-rays. Subjective Patient ID: Felisha Joaquin is a 78 y.o. female. Chief Complaint: Follow-up and Fracture of the Right Upper Arm (Patient fell on 06/07/2023, she had x-rays done at that time. ) Last Surgery: No surgery found Last Surgery Date: No surgery found HPI 78-year-old female who fell and sustained a right proximal humerus fracture three-part which is minimally to mildly displaced. Based on the x-rays obtained 3 days ago it is in a position for closed treatment. OBJECTIVE: ORTHO EXAM Right shoulder: Inspection: Skin healthy to gross inspection Some ecchymosis, moderate edema, and soft tissue swelling palpation: Acromioclavicular joint minimal tenderness Biceps tendon/ groove mild tenderness Anterior Acromial Bursal Area mild tenderness Cervical spine no tenderness Global tenderness at the proximal humerus. ROM: Range of motion is deferred as the patient is in a sling. Strength: Strength testing was deferred as the patient is in a sling. Special testing and range of motion distally is deferred because the patient is in a sling. Neurovascular exam normal distally IMAGE RESULTS: XR knee left 4+ views Narrative: Interpreted By: Kai Khanna, STUDY: XR KNEE LEFT 4+ VIEWS; ; 06/07/2023 7:55 pm INDICATION: Signs/Symptoms:fall, pain. COMPARISON: None. ACCESSION NUMBER(S): [id number] ORDERING CLINICIAN: RICK NÚÑEZ FINDINGS: Left knee arthroplasty changes. Demineralization. No evidence of acute fracture. No malalignment. Impression: No evidence of acute fracture of the left knee. MACRO: None Signed by: Kai Khanna 06/07/2023 8:19 PM Dictation workstation: [id number] XR humerus right, XR shoulder right 2+ views Narrative: Interpreted By: Kai Khanna, STUDY: XR HUMERUS RIGHT; XR SHOULDER RIGHT 2+ VIEWS; ; 06/07/2023 7:55 pm INDICATION: Signs/Symptoms:fall, pain. COMPARISON: None. ACCESSION NUMBER(S): [id number]; [id number] ORDERING CLINICIAN: RICK NÚÑEZ FINDINGS: Right humerus and right shoulder. Demineralization of the bones. There is an acute proximal comminuted humerus fracture with extension into the humeral head and glenohumeral joint. Large joint effusion. No dislocation. The humeral shaft distally is intact. Impression: Acute right proximal humerus fracture. No dislocation. Demineralization of the bones. MACRO: None Signed by: Kai Khanna 06/07/2023 8:18 PM Dictation workstation: [id number] CT head wo IV contrast Narrative: Interpreted By: Kai Khanna, STUDY: CT HEAD WO IV CONTRAST; 06/07/2023 8:05 pm INDICATION: Signs/Symptoms:fall. COMPARISON: None. ACCESSION NUMBER(S): [id number] ORDERING CLINICIAN: RICK NÚÑEZ TECHNIQUE: Noncontrast axial CT scan of head was performed. Angled reformats in brain and bone windows were generated. The images were reviewed in bone, brain, blood and soft tissue windows. FINDINGS: CSF Spaces: The ventricles, sulci and basal cisterns are within normal limits. There is no extraaxial fluid collection. Moderate global volume loss loss and chronic small vessel ischemic change. Parenchyma: The gutierrez-white differentiation is intact. There is no mass effect or midline shift. There is no intracranial hemorrhage. Calvarium: The calvarium is unremarkable. Paranasal sinuses and mastoids: Visualized paranasal sinuses and mastoids are clear. Impression: No evidence of acute cortical infarct or intracranial hemorrhage. Senescent changes. MACRO: None Signed by: Kai Khanna 06/07/2023 8:16 PM Dictation workstation: [id number] ULTRASOUND none Procedures Orders Placed This Encounter XR humerus right Point of Care Ultrasound documented in this encounter [facility] Work Phone: 06-08-2023 Miscellaneous Notes We haven't seen her recently in office, needs to see Ortho Trace Mendiola DO Pt's daughter calls to report that pt fell last night and broke her arm. Pt was taken to [facility]. Daughter reports they immobilized arm in a sling and advised pt to see an Ortho surgeon. Daughter transferred to Ortho stratigraphy teacher. Heidy Rangel LPN documented in this encounter [facility] 03-30-2023 Note IMPRESSION: INCOMPLE TE: NEEDS ADDITIONAL IMAGING EVALUATION The oval asymmetry in the right breast is indeterminate. Additional views with possible ultrasound are recommended. Sacha muller/araceli:03/30/2023 10:53:50 Talent Consultant(s): RT Benita(R)(M), [facility] letter sent: Additional Imaging Needed Mammogram BI-RADS: 0 Incomplete: needs additional imaging evaluation If this report indicates you need additional imaging, and it has NOT yet been performed, please call , to schedule. We sincerely thank you for choosing the [facility] for your breast imaging needs. Multiple national specialty organizations have released breast cancer screening guidelines for women at average risk for developing breast cancer - guidelines that are based on both evidence and opinion, yet differ on when to start and how often to screen for breast cancer. With representation from Breast Imaging, Internal Medicine, Women's Health, Family Medicine, and Medical/Surgical Oncology, the [facility] has carefully reviewed the data and reached the following consensus: 1) All women should engage in shared decision-making with their providers to decide when to start and how often to screen; 2) All women should have the opportunity to start screening mammography at age 40; 3) For women ages 45-55, we recommend annual screening mammograms; 4) For women ages 55 and over, we support both the transition from an annual to a biennial interval if this aligns more with patient's values and preferences, or continuation with annual screening; 5) All women should discuss with their providers when to stop screening mammograms. Tank Builder Helper: Araceli Transcribe Date/Time: Mar 29 2023 9:54A Dictated by: SACHA ACEVEDO MD This examination was interpreted and the report reviewed and electronically signed by: SACHA ACEVEDO MD on Mar 30 2023 10:53AM EST DIVISION OF RADIOLOGY 03-29-2023 History of Presen t illness Narrative Radiology Service Progress Note PATIENT NAME: Felisha Joaquin DATE OF SERVICE: March 29, 2023 TIME: 10:06 AM PATIENT IDENTITY VERIFICATION COMPLETED USING TWO (2) IDENTIFIERS: Name and Date of confirmed by patient verbally. FALL SCREENING: Has the patient had 2 falls in the last year or 1 fall with injury or currently using an Ambulatory Assistive Device (Walker, Cane, Wheelchair, Crutches, etc.)? No PATIENT GENDER DATA: Female. status: : No status: NO. PATIENT RELEVANT IMPLANT DATA REVIEWED: Not Applicable RADIOLOGY DEPARTMENT: Mammography PERIPHERAL IV DATA: Not applicable SIGNED BY: Gay Joy March 29, 2023 10:06 AM documented in this encounter [facility] 03-22-2023 Telephone encounter Note Mammogram ordered. Please assist in scheduling. Thank you, Kaylen Best APRN.VEGETABLE PREPARER [facility] 03-22-2023 Miscellaneous Notes Mammogram ordered. Please assist in scheduling. Thank you, Kaylen Best APRN.VEGETABLE PREPARER Images from the original note were not included. Felisha Joaquin My Chart Rx Pool I received a notice that it was time to schedule mammogram. I called the number on the letter. They said I needed prescription from my primary care doctor to be able to schedule documented in this encounter [facility] 03-22-2023 Miscellaneous Notes See telephone note documented in this encounter [facility] 03-22-2023 Telephone encounter Note Images from the original note were not included. Felisha Joaquin Famp My Chart Rx Pool I received a notice that it was time to schedule mammogram. I called the number on the letter. They said I needed prescription from my primary care doctor to be able to schedule [facility] 03-16-2023 History of Presen t illness Narrative [facility] [address] [facility] [address] [facility] [address] Dept: [phone] MD Felisha Eller 77 y.o. female Patient presents with a chief complaint of Ear Cleaning (6 mo follow up Ear Cleaning) Temp 97.6 F (36.4 C) (Temporal) Ht 5' 5 Wt 103.6 kg (228 lb 6.4 oz) BMI 38.01 kg/m History of Presenting Illness: The patient/caregiver reports a history of complaint with the following features: She presents for ear cleaning. This has no been causing her any difficulty, but has tended to blocked her hearing aids in the past. She has no ear pain or discharge. Review of systems covering 10 systems is reviewed and pertinent positives and negatives are noted as above. Past Medical History: Diagnosis Date Coronary artery disease GERD (gastroesophageal reflux disease) Hyperlipidemia Hypertension Non-ST elevation myocardial infarction (NSTEMI) ([facility]) 03/2014 Osteoarthritis Current Outpatient Medications: ascorbic acid, vitamin C, (VITAMIN C) 500 MG tablet, Take 1 (one) tablet (500 mg total) by mouth daily ., Disp: , Rfl: aspirin 81 MG EC tablet, Take 1 (one) tablet (81 mg total) by mouth daily ., Disp: , Rfl: atorvastatin (LIPITOR) 20 MG tablet, TAKE 1 TABLET EVERY DAY, Disp: 90 tablet, Rfl: 3 carvediloL (COREG) 3.125 MG tablet, TAKE 1 TABLET TWICE DAILY WITH MEALS, Disp: 180 tablet, Rfl: 3 docusate sodium (COLACE) 100 MG capsule, Take 1 (one) capsule (100 mg total) by mouth 2 (two) times a day ., Disp: , Rfl: enalapril (VASOTEC) 2.5 MG tablet, Take 1 (one) tablet (2.5 mg total) by mouth daily ., Disp: 90 tablet, Rfl: 3 fexofenadine-pseudoePHEDrine (ELSIE-D 24) 180-240 mg per 24 hr tablet, Take 1 (one) tablet by mouth once ., Disp: , Rfl: furosemide (LASIX) 20 MG tablet, Take 1 (one) tablet (20 mg total) by mouth daily as needed (for lower extremity swelling) ., Disp: 90 tablet, Rfl: 3 multivitamin (THERAGRAN) per tablet, Take 1 (one) tablet by mouth daily ., Disp: , Rfl: naproxen (NAPROSYN) 250 MG tablet, Take 1 (one) tablet (250 mg total) by mouth 2 (two) times a day as needed ., Disp: , Rfl: omeprazole (PRILOSEC) 20 MG capsule, Take 1 (one) capsule (20 mg total) by mouth daily ., Disp: , Rfl: peg 400-propylene glycol 0.4-0.3 % Drop, 1 (one) drop ., Disp: , Rfl: potassium chloride 10 MEQ CR tablet, Take 1 (one) tablet (10 mEq total) by mouth daily When taking furosemide 20 mg daily for lower extremity swelling ., Disp: 90 tablet, Rfl: 3 Allergies Allergen Reactions No Known Drug Allergies Past Surgical History: Procedure Laterality Date BASAL CELL CARCINOMA EXCISION BUNIONECTOMY CARDIAC CATHETERIZATION Left 01/25/2014 EF 40% Social History Socioeconomic History Marital status: Tobacco Use Smoking status: Never Smokeless tobacco: Never Vaping Use Vaping Use: Never used Substance and Sexual Activity Alcohol use: No Drug use: No History reviewed. No pertinent family history. PHYSICAL EXAM: The patient was examined today 03/16/2023 with findings as follows: CONSTITUTIONAL: General Appearance: well-appearing, nontoxic, alert, no acute distress Communication: normal voicing, hearing intact to spoken voice HEAD/FACE: Head: atraumatic, normocephalic, no lesions Facial Inspection: no lesions, healthy skin Facial Strength: motor strength normal, symmetric strength, symmetric movement EYES: Pupils: PERRLA, extra-ocular movements intact, no nystagmus, sclera white, no redness of eyes, no watering of eyes EARS: Bilateral External Ears: no pits, no tags Right External Ear: normally formed, no lesions, no mastoid tenderness Left External Ear: normally formed, no lesions, no mastoid tenderness Right External Auditory Canal: normal, healthy skin, obstructing cerumen, no discharge Left External Auditory Canal: normal, healthy skin, obstructing cerumen, no discharge Right Tympanic Membrane: normal landmarks, translucent, Left Tympanic Membrane: normal landmarks, translucent, Hearing: intact to spoken voice NECK: Neck: no masses, trachea midline, normal range of motion, no cysts or pits, no tenderness to palpation LYMPH NODES: Cervical: no palpable lymph node enlargement SKIN: General Appearance: no lesions, warm and dry, normal turgor, no bruising PSYCHIATRIC: Mood and affect: normal mood, normal affect CERUMEN REMOVAL PROCEDURE NOTE ([id number]) PROCEDURE PERFORMED BY: Monica Porter MD PROCEDURE DATE: 03/16/2023 With the patient and/or caregiver's consent, the patient is positioned in the exam chair and an otic speculum placed into the right ear canal. Under binocular microscopic visualization there is noted to be cerumen filling the lateral canal. This is then removed with a right angle hook revealing a healthy tympanic membrane without evidence of middle ear effusion or perforation. On the left, a similar finding is noted and procedure completed. The patient tolerated the procedure well without complication. Assessment and Plan: Her cerumen is removed. She continues with hearing aid use for her hearing loss. Periodic return for cleaning is advised to optimize their use. 1. Bilateral impacted cerumen Return in about 10 months (around 01/15/2024). The patient and/or caregiver is to notify the office if no improvement or worsening of symptoms is noted prior to the scheduled follow-up for sooner evaluation. The patient and/or caregiver is able to state an understanding of these recommendations and is agreeable to the treatment plan. --Monica Porter MD on 03/16/2023 at 10:26 AM An electronic signature was used to authenticate this note. Review of Systems Constitutional: Negative. HENT: Positive for tinnitus. Eyes: Negative. Respiratory: Negative. Cardiovascular: Negative. Gastrointestinal: Positive for constipation. Endocrine: Negative. Genitourinary: Negative. Musculoskeletal: Negative. Skin: Negative. Allergic/Immunologic: Negative. Neurological: Negative. Hematological: Negative. Psychiatric/Behavioral: Negative. documented in this encounter [facility] 12-01-2022 Claudia Aguayo RN - 12/01/2022 11:44 AM EDT How to contact your Care Team: Provider: Dr.SHARON KIRAN Nurse: Nkechi NORIEGA Fax: In case of an emergency please call [phone]. REFILLS: When in need for refills please call your care team or the office at [phone]. Please include medication name, pharmacy name, and specify 30-day or 90-day supply. Please check with your pharmacy within 24 hours of request for your refill. You must follow up as directed to continue current refills. Thank you! documented in this encounter [facility] 12-01-2022 History of Presen t illness Narrative General Cardiology Returning Patient Clinic Visit [facility] Heart & Vascular 12/01/2022 Estella Soto, VEGETABLE PREPARER [address] [facility] Medical Office [facility] [id number] Patient: Felisha Joaquin Date of : 1945 (77 y.o.) Construction Person: Dr. Kiran PCP: Trace Mendiola DO Chief Complaint: Follow-up (Overdue/no cardiac concerns) Date of Service: 12/01/2022 Assessment and Plan: Coronary artery disease Hx of LV systolic dysfunction with recovery No anginal symptoms Euvolemic on exam Plan: -Continue aspirin 81 mg daily -Continue enalapril 2.5 mg daily -Continue Coreg 3.125 mg twice daily -Continue atorvastatin 20 mg daily -Lasix 20 mg as needed, euvolemic on exam today Hyperlipidemia Most recent lipid panel and hepatic function panel from Care Everywhere was reviewed today. Lipids well controlled. Hepatic function was normal. - Continue statin therapy Hypertension Most recent BMP found in Care Everywhere reviewed Blood pressure at the office today 122/77 Plan: -Continue susana inhibitor and BB as noted above It has been a pleasure caring for this patient. Please don't hesitate to reach out to my office directly with any questions or concerns. Follow-up: Return in about 1 year (around 12/02/2023). Estella Soto, MSN, SNOUT PULLER, VALET PARKING ATTENDANT-C, SELF RISING FLOUR MIXER, ECG- General Cardiology [facility] History of Present Illness: Felisha Joaquin is a 77 y.o. woman with a past medical history of coronary artery disease status post non-ST elevation myocardial infarction in 2014 status post catheterization that showed nonobstructive coronary artery disease. Her LVEF was noted to be 40% at that time. She was started on goal-directed medical therapy and did have recovery of her ventricular function. She was last seen in our office on 11/24/2021 by Geno Kenyon CNP. Today at the office she seems to be doing well from a cardiovascular standpoint. She denies exertional chest pain or shortness of breath. She denies PND, orthopnea, abdominal fullness, or lower extremity edema. She occasionally uses her as needed Lasix. She denies palpitations, presyncope or syncope. She denies any signs of bleeding. She states she completes all of her inside housework and outside work including gardening and lawn care. She currently uses a push mower without any complaints. Objective Review of Systems: All systems were reviewed and noted to be negative unless otherwise stated in HPI. Twelve-lead EKG completed at the office today showing sinus rhythm with right bundle branch block. No signs of ischemia. No atrial or ventricular ectopy. EKG was sent to reading growth hacker for further interpretation. Past Medical History: Diagnosis Date Coronary artery disease GERD (gastroesophageal reflux disease) Hyperlipidemia Hypertension Non-ST elevation myocardial infarction (NSTEMI) ([facility]) 03/2014 Osteoarthritis Past Surgical History: Procedure Laterality Date BASAL CELL CARCINOMA EXCISION BUNIONECTOMY CARDIAC CATHETERIZATION Left 01/25/2014 EF 40% History reviewed. No pertinent family history. Social History Tobacco Use Smoking Status Never Smokeless Tobacco Never Allergies: No known drug allergies All of the above information has been reviewed at today's visit and modified if necessary. Home Medications: Current Outpatient Medications: ascorbic acid, vitamin C, (VITAMIN C) 500 MG tablet, Take 1 (one) tablet (500 mg total) by mouth daily ., Disp: , Rfl: aspirin 81 MG EC tablet, Take 1 (one) tablet (81 mg total) by mouth daily ., Disp: , Rfl: atorvastatin (LIPITOR) 20 MG tablet, TAKE 1 TABLET EVERY DAY, Disp: 90 tablet, Rfl: 3 carvediloL (COREG) 3.125 MG tablet, TAKE 1 TABLET TWICE DAILY WITH MEALS, Disp: 180 tablet, Rfl: 3 docusate sodium (COLACE) 100 MG capsule, Take 1 (one) capsule (100 mg total) by mouth 2 (two) times a day ., Disp: , Rfl: enalapril (VASOTEC) 2.5 MG tablet, Take 1 (one) tablet (2.5 mg total) by mouth daily ., Disp: 90 tablet, Rfl: 3 fexofenadine-pseudoePHEDrine (ELSIE-D 24) 180-240 mg per 24 hr tablet, Take 1 (one) tablet by mouth once ., Disp: , Rfl: furosemide (LASIX) 20 MG tablet, Take 1 (one) tablet (20 mg total) by mouth daily as needed (for lower extremity swelling) ., Disp: 90 tablet, Rfl: 3 multivitamin (THERAGRAN) per tablet, Take 1 (one) tablet by mouth daily ., Disp: , Rfl: naproxen (NAPROSYN) 250 MG tablet, Take 1 (one) tablet (250 mg total) by mouth 2 (two) times a day as needed ., Disp: , Rfl: omeprazole (PRILOSEC) 20 MG capsule, Take 1 (one) capsule (20 mg total) by mouth daily ., Disp: , Rfl: peg 400-propylene glycol 0.4-0.3 % Drop, 1 (one) drop ., Disp: , Rfl: potassium chloride 10 MEQ CR tablet, Take 1 (one) tablet (10 mEq total) by mouth daily When taking furosemide 20 mg daily for lower extremity swelling ., Disp: 90 tablet, Rfl: 3 Physical Exam: BP 122/77 (BP Location: Left arm) Pulse 66 Ht 5' 5 Wt 103 kg (227 lb) SpO2 96% BMI 37.77 kg/m Constitutional: Well appearing female, no acute distress Head: Normocephalic and atraumatic. Eyes: Conjunctivae are normal, no scleral icterus, no corneal arcus Cardiovascular: Regular rate and rhythm, no murmurs appreciated on today's exam, normal S1 and S2, no rubs or gallops, PMI is midline. No JVD noted. No peripheral edema. Lungs: Clear to auscultation, no rales, wheezes or rhonchi Pulses: +2 dorsalis pedis pulses bilaterally Musculoskeletal: Normal range of motion. Neurological: AOx3, moving all extremities normally Skin: Skin is warm and dry, normal hair pattern Psychiatric: Normal mood and affect, appropriate conversation Cardiovascular Studies: Echo 08/14/2016 Conclusions: Normal LV size and systolic function, LVEF 55-60% Normal RV size and function Normal diastolic filling Mild TR, RVSP est at 32mmHg Frequent PVCs during the exam. Labs: Lab Results Component Value Date GLUCOSE 93 05/23/2019 CALCIUM 9.0 05/23/2019 NA 138 05/23/2019 K 4.1 05/23/2019 CL 106 05/23/2019 BUN 12 05/23/2019 CREATININE 0.72 05/23/2019 No results found for: WBC, HGB, HCT, MCV, EXTMCV, PLT, RBC Lab Results Component Value Date CHOL 143 05/23/2019 LDLCALC 67 05/23/2019 TRIG 102 05/23/2019 HDL 56 05/23/2019 No results found for: HGBA1C Lab Results Component Value Date ALT 21 05/23/2019 AST 16 05/23/2019 ALKPHOS 118 05/23/2019 BILITOT 0.5 05/23/2019 The ASCVD Risk score (Nydia DK, et al., 2019) failed to calculate for the following reasons: Cannot find a previous HDL lab Cannot find a previous total cholesterol lab f documented in this encounter [facility] 09-03-2022 Telephone encounter Note Patient was last seen by Elsie DUPONT 11/24/21 with a recall due in 11/2022. Scheduling notified. Refill appropriate [facility] 09-03-2022 Miscellaneous Notes Patient was last seen by Elsie DUPONT 8/1/22 with a recall due in 11/2022. Scheduling notified. Refill appropriate documented in this encounter [facility] 09-01-2022 Miscellaneous Notes Patients pantoprazole is filled by Irish Giles CNP in [place]. Her refill was denied at that office due to needing an appointment. Patient sent [facility] explaining this information and notified to contact [facility] to further discuss her refill request. DECLAN Cowart documented in this encounter [facility] 08-24-2022 Miscellaneous Notes Old message. Patient had YAG Laser done on the left eye on 08/12/2022. Jordyn Patel RN August 24, 2022 10:52 AM No need for laser consult. Can just go ahead and do it during clinic if she is interested in having it done Plan: -Retina precautions reviewed. Return to clinic as soon as possible if increased floaters, flashes, or shadows. -artificial tears twice a day both eyes -Dr. Angelo - patient interested in glasses. If happy with glasses, routine follow-up with Dr. Angelo. Back to be as needed for YAG capsulotomy left eye Patient is currently scheduled for a Yag Laser Consult on 08/12/2022 in [place]. Is this appropriate or should she be scheduled for the laser that day. Please advise. Jordyn Patel RN August 10, 2022 12:10 PM documented in this encounter [facility] 08-21-2022 History of Presen t illness Narrative 1. Bilateral posterior capsular opacification Doing well PO yag left eye 2. Pseudophakia Continue with current glasses 3. Vitreous floaters of both eyes Monitor 4. Hemangioma of eyelid No ocular involvement 5. Dry eye syndrome of both eyes Use AT's as needed Follow-up in 1 year or sooner as needed Ne Angelo, OD August 21, 2022 2:47 PM documented in this encounter [facility] 07-08-2022 History of Presen t illness Narrative Assessment and Plan 1. Vitreous floaters of both eyes -stable 2. Pseudophakia 3. Posterior capsular opacification -progressive visual significance 4. Hemangioma of eyelid -no evidence of ocular involvement 5. Dry eye syndrome both eyes -mild symptoms Plan: -Retina precautions reviewed. Return to clinic as soon as possible if increased floaters, flashes, or shadows. -artificial tears twice a day both eyes -Dr. Angelo - patient interested in glasses. If happy with glasses, routine follow-up with Dr. Angelo. Back to be as needed for YAG capsulotomy left eye I have confirmed and edited as necessary the relevant ophthalmic history, ROS, and the neuro exam findings as obtained by others. I have seen and examined Felisha Joaquin. I have discussed the case and the management of this patient's care with the Resident/Fellow, if applicable. I also have reviewed and agree with the assessment and plan as stated above and agree with all of its relevant components. Jimmie Kevin MD documented in this encounter [facility] 07-08-2022 Instructions Jimmie Kevin MD - 07/08/2022 2:49 PM EDT Images from the original note were not included. documented in this encounter [facility] 03-12-2022 History of Presen t illness Narrative Radiology Service Progress Note PATIENT NAME: Felisha Joaquin DATE OF SERVICE: March 12, 2022 TIME: 1:49 PM PATIENT IDENTITY VERIFICATION COMPLETED USING TWO (2) IDENTIFIERS: Name and Date of confirmed by patient verbally. FALL SCREENING: Has the patient had 2 falls in the last year or 1 fall with injury or currently using an Ambulatory Assistive Device (Walker, Cane, Wheelchair, Crutches, etc.)? No PATIENT GENDER DATA: Female. status: : No status: NO. PATIENT RELEVANT IMPLANT DATA REVIEWED: Not Applicable RADIOLOGY DEPARTMENT: Mammography PERIPHERAL IV DATA: Not applicable SIGNED BY: Eve Carnes [employer] Gerhard March 12, 2022 1:49 PM documented in this encounter [facility] 02-26-2022 Miscellaneous Notes Pt informed, verbalized understanding Nicci Carmichael Ma Please inform patient that her labs are all normal except for low vitamin D levels. Would recommend vitamin D3 2,000-5,000 international unit(s) a day with a meal. Trace Mendiola DO documented in this encounter [facility] 02-17-2022 History of Presen t illness Narrative Felisha Joaquin is a 76 year old female here for a Medicare Subsequent Annual Wellness Visit Health Risk Assessment In general, health is: Fair Concerns with tiredness, difficulties with sexual function, balance, teeth/dentures: Not at all [place] anxious, stressed, angry, irritable, lonely, isolated, or had thoughts of hurting themself: Not at all Has little interest or pleasure in doing things: Not at all Bothered by feeling down, depressed, or hopeless: Not at all Needs help with grocery shopping, cooking, housework, bathing, grooming, dressing, eating, sitting or standing, walking, using the toilet, handling finances, taking medications, using the telephone, or driving: No Following safety precautions in the home environment and vehicle: removed throw rugs from floors, installed grab bars in the bathroom, handrails in stairwells, having adequate lighting, wearing seatbelt at all times?: Yes Smokes cigarettes, vapes, or chew tobacco: No Eats healthy foods including fruits, vegetables, whole grains, and fiber-rich foods: Nearly every day Number of days per week engages in exercise: Patient refused Average alcohol consumption: Never Current Providers Patient Care Team: Trace Mendiola DO as PCP - General (Family Medicine) Specialists: I have reviewed specialist-related care of the patient in the medical record. Medical/Family history review Reviewed and updated problem list, medical history, surgical history, family history, social history, medication list, and allergies. Opioid use review Patient is not currently using opioids. Depression screening Depression Screening PHQ-2 Score CAITY-2 Total Score 02/16/2022 0 - Depression screening tool completed and reviewed. Based on score and interview, patient is not at risk for depression. Screening tool discussed with patient, and I recommended no further intervention at this time. Cognitive screening Mini Cog Score: Score: 5 Cognitive screening reviewed and no further action needed (score 3-5) Functional Observation Was the patient's timed Up & Go test unsteady or longer than 30 seconds? No Advance Care Planning End of Life planning discussed, including patient's advanced directive wishes: Yes Measurements BP 110/80 Pulse 76 Temp (Src) 97.3 (Left Tympanic) Resp 20 Wt 225 lb (102.1kg) Visual acuity: follows with optometry/ophthalmology Hearing Evaluation: wears hearing aids Assessment/Plan - Counseled on healthy diet and regular exercise - Discussed need for and benefit of weight loss. BMI 38.62 kg/(m^2) - Fall avoidance - Lipid panel - Diabetes screening - Depression screening Trace Mendiola DO documented in this encounter [facility] 11-24-2021 History of Presen t illness Narrative General Cardiology Clinic Follow-up Heart & Vascular [facility] 11/24/2021 Peyton Kenyon, VEGETABLE PREPARER [address] [facility] Medical Office [facility] [phone] Patient: Felisha Joaquin Date of : 1945 (76 y.o.) PCP: Trace Mendiola, DO Assessment & Plan Lower extremity edema, patient is encouraged to take her Lasix every other day until swelling resolves Coronary artery disease continue on atorvastatin and aspirin History of left ventricular systolic dysfunction with recovery Continue lisinopril and Coreg. Follow-up: Dr. Kiran in 1 year Chief Complaint: No chief complaint on file. Subjective History of Present Illness: Felisha Joaquin is a 76 y.o. female with a past medical history of coronary artery disease status post non-ST elevation myocardial infarction in 2013 status post catheterization that showed nonobstructive coronary artery disease. She was last evaluated via telemedicine by Dr. Kiran on 05/21/2020. Over the last year Felisha endorses doing well she does have some mild swelling in her extremities however when she puts her feet up overnight it does resolve. She had not been taking her medication however she has recently restarted them. I did encourage her to continue to take her Lasix every day. She continues to perform ADLs without difficulty she denies headache, vision changes, syncope. She denies chest pain, palpitations, orthopnea, PND she will occasionally have shortness of breath. She denies abdominal pain, nausea, vomiting, diarrhea. She denies abdominal bloating. She does endorse lower extremity swelling. The patient endorses that she is not up on her feet much during the day she does a lot of sitting. She is encouraged to increase her activity at least with a walk daily. Objective Tobacco Use Smoking Status Never Smokeless Tobacco Never Imaging: I independently reviewed the EKG and agree with the interpretation(s) with the following comments. Sinus rhythm right bundle branch block Echocardiogram complete Final Result by Antonia Tovar MD (08/14/2016 1553) HOME Medications: Patient's Medications New Prescriptions No medications on file Previous Medications ASPIRIN 81 MG EC TABLET Take 81 mg by mouth daily. ATORVASTATIN (LIPITOR) 20 MG TABLET Take 1 (one) tablet (20 mg total) by mouth daily . CARVEDILOL (COREG) 3.125 MG TABLET Take 1 (one) tablet (3.125 mg total) by mouth 2 (two) times a day with meals . ENALAPRIL (VASOTEC) 2.5 MG TABLET Take 1 (one) tablet (2.5 mg total) by mouth daily . FUROSEMIDE (LASIX) 20 MG TABLET Take 1 (one) tablet (20 mg total) by mouth daily as needed (for lower extremity swelling) . MULTIVITAMIN CAPSULE Take 1 capsule by mouth daily. NAPROXEN (NAPROSYN) 250 MG TABLET Take 250 mg by mouth 2 (two) times a day as needed. PANTOPRAZOLE (PROTONIX) 40 MG TABLET Take 40 mg by mouth daily. POTASSIUM CHLORIDE 10 MEQ CR TABLET Take 1 (one) tablet (10 mEq total) by mouth daily When taking furosemide 20 mg daily for lower extremity swelling . VIT A/VIT C/VIT E/ZINC/COPPER (OCUVITE PRESERVISION ORAL) Take by mouth. Modified Medications No medications on file Discontinued Medications No medications on file Physical Examination: There were no vitals taken for this visit. Constitutional: Appears well-developed and well-nourished. No distress. Cardiovascular: Normal rate and regular rhythm. Exam reveals no gallop and no friction rub. No murmur heard. Pulmonary/Chest: Effort normal and breath sounds normal. No respiratory distress. No wheezes. No rales. Abdominal: Soft. Bowel sounds are normal. There is no abdominal tenderness. Musculoskeletal: Normal range of motion. General: Trace ankle edema. Neurological: AOx3, moving all ext. Skin: Skin is warm and dry. No rash noted. Psychiatric: Normal mood and affect. Lab Results Component Value Date CHOL 143 05/23/2019 LDLCALC 67 05/23/2019 TRIG 102 05/23/2019 HDL 56 05/23/2019 Creatinine clearance cannot be calculated (Patient's most recent lab result is older than the maximum 14 days allowed.) documented in this encounter [facility] 11-24-2021 Instructions Cheyanne Engle RN - 11/24/2021 8:03 AM EDT PROVIDER: DR CANDICE KIRAN NURSE: NKECHI MCKEON RN PHONE: [phone] FAX: [phone] REFILLS: When in need for refills please call your care team or the office at [phone]. Please include medication name, pharmacy name, and specify 30-day or 90-day supply. Please check with your pharmacy within 24 hours of request for your refill. You must follow up as directed to continue current refills. Thank you! documented in this encounter [facility] 09-29-2021 Telephone encounter Note lvm on primary # advising patient to call our office when he needs medication refills so we can get him scheduled for an overdue ov [facility] 09-29-2021 Miscellaneous Notes lvm on primary # advising patient to call our office when he needs medication refills so we can get him scheduled for an overdue ov Msg sent to scheduling for overdue ov documented in this encounter [facility] 09-25-2021 Telephone encounter Note Msg sent to scheduling for overdue ov [facility] 05-16-2019 Telephone encounter Note Called patient regarding medication refill request last OV was on 09/07/18 with Shawna recall was 03/10/[address]Robles herrera there are none until July 2019 patient was happy to see Shawna placed her on Shawna Schedule for tomorrow she will fill refills then thank you [facility] 05-16-2019 Miscellaneous Notes Called patient regarding medication refill request last OV was on 09/07/18 with Shawna recall was 03/10/[address]Robles herrera there are none until July 2019 patient was happy to see Shawna placed her on Shawna Schedule for tomorrow she will fill refills then thank you documented in this encounter [facility] 02-07-2016 History of Past i llness Narrative Problem Noted Date Resolved Date Dry eyes, bilateral 02/07/2016 04/07/2016 S/P total knee arthroplasty 06/16/201310/25 documented as of this encounter (statuses as of 02/17/2022) [facility] History of Past illness Narrative* Problem Noted Date Resolved Date Dry eyes, bilateral 02/07/2016 04/07/2016 S/P total knee arthroplasty 06/16/201310/25 documented as of this encounter (statuses as of 02/26/2022) [facility] History of Past illness Narrative* Problem Noted Date Resolved Date Dry eyes, bilateral 02/07/2016 04/07/2016 S/P total knee arthroplasty 06/16/201310/25 documented as of this encounter (statuses as of 03/10/2022) [facility] History of Past illness Narrative* Problem Noted Date Resolved Date Dry eyes, bilateral 02/07/2016 04/07/2016 S/P total knee arthroplasty 06/16/201310/25 documented as of this encounter (statuses as of 07/08/2022) [facility] History of Past illness Narrative* Problem Noted Date Resolved Date Dry eyes, bilateral 02/07/2016 04/07/2016 S/P total knee arthroplasty 06/16/201310/25 documented as of this encounter (statuses as of 08/21/2022) [facility] History of Past illness Narrative* Problem Noted Date Resolved Date Dry eyes, bilateral 02/07/2016 04/07/2016 S/P total knee arthroplasty 06/16/201310/25 documented as of this encounter (statuses as of 08/24/2022) [facility] History of Past illness Narrative* Problem Noted Date Resolved Date Dry eyes, bilateral 02/07/2016 04/07/2016 S/P total knee arthroplasty 06/16/201310/25 documented as of this encounter (statuses as of 09/01/2022) [facility] History of Past illness Narrative* Problem Noted Date Diagnosed Date Resolved Date Dry eyes, bilateral 02/07/2016 04/07/20 16 S/P total knee arthroplasty 06/16/2013 11/13/2014 documented as of this encounter (statuses as of 03/01/2023) [facility] History of Past illness Narrative* Problem Noted Date Diagnosed Date Resolved Date Dry eyes, bilateral 02/07/2016 04/07/20 16 S/P total knee arthroplasty 06/16/2013 11/13/2014 documented as of this encounter (statuses as of 03/22/2023) [facility] History of Past illness Narrative* Problem Noted Date Diagnosed Date Resolved Date Dry eyes, bilateral 02/07/2016 04/07/20 16 S/P total knee arthroplasty 06/16/2013 11/13/2014 documented as of this encounter (statuses as of 03/30/2023) [facility] History of Past illness Narrative* Problem Noted Date Diagnosed Date Resolved Date Dry eyes, bilateral 02/07/2016 04/07/20 16 S/P total knee arthroplasty 06/16/2013 11/13/2014 documented as of this encounter (statuses as of 06/08/2023) [facility] History of Past illness Narrative* Problem Noted Date Diagnosed Date Resolved Date Dry eyes, bilateral 02/07/2016 04/07/20 16 S/P total knee arthroplasty 06/16/2013 11/13/2014 documented as of this encounter (statuses as of 07/14/2023) [facility] History of Past illness Narrative* Problem Noted Date Diagnosed Date Resolved Date Dry eyes, bilateral 02/07/2016 04/07/20 16 S/P total knee arthroplasty 06/16/2013 11/13/2014 documented as of this encounter (statuses as of 07/16/2023) [facility] History of Past illness Narrative* Problem Noted Date Diagnosed Date Resolved Date Dry eyes, bilateral 02/07/2016 04/07/20 16 S/P total knee arthroplasty 06/16/2013 11/13/2014 documented as of this encounter (statuses as of 08/10/2023) [facility] Essential hypertension with goal blood pressure less than 130/80 Bilateral lower extremity edema On potassium wasting diuretic therapy [facility] Diagnosis Mixed hyperlipidemia Essential hypertension with goal blood pressure less than 130/80 [facility] Diagnosis Coronary artery disease involving [place] coronary artery of [place] heart without angina pectoris- Primary LV dysfunction with recoverability Left heart failure [facility] Diagnosis Medicare annual wellness visit, subsequent- Primary Routine general medical examination at a health care facility Essential hypertension Unspecified essential hypertension Gastroesophageal reflux disease without esophagitis Esophageal reflux Primary osteoarthritis of both knees Primary localized osteoarthrosis, lower leg Dyslipidemia Other and unspecified hyperlipidemia Fatigue, unspecified type Vitamin D deficiency Unspecified vitamin D deficiency [facility] Diagnosis Visit for screening mammogram- Primary Other screening mammogram [facility]* Diagnosis Essential hypertension with goal blood pressure less than 130/80 Mixed hyperlipidemia [facility] Diagnosis Essential hypertension with goal blood pressure less than 130/80 Mixed hyperlipidemia [facility] Diagnosis Vitreous floaters of both eyes- Primary Bilateral posterior capsular opacification After-cataract, unspecified Pseudophakia Lens replaced by other means Hemangioma of eyelid Hemangioma of skin and subcutaneous tissue Dry eye syndrome of both eyes [facility]* Diagnosis Bilateral posterior capsular opacification- Primary After-cataract, unspecified Pseudophakia Lens replaced by other means Vitreous floaters of both eyes Hemangioma of eyelid Hemangioma of skin and subcutaneous tissue Dry eye syndrome of both eyes documented in this encounter [facility] note* Diagnosis Essential hypertension with goal blood pressure less than 130/80 [facility] Diagnosis Coronary artery disease involving [place] coronary artery of [place] heart without angina pectoris- Primary LV dysfunction with recoverability Left heart failure Primary hypertension Unspecified essential hypertension Mixed hyperlipidemia [facility] Diagnosis Bilateral impacted cerumen- Primary Impacted cerumen [facility] Diagnosis Screening mammogram for breast cancer documented in this encounter [facility] note* Diagnosis Closed 3-part fracture of proximal humerus with routine healing, right- Primary Right arm fracture, closed, initial encounter documented in this encounter [facility] Work Phone: [phone] note* Diagnosis Right arm fracture, closed, initial encounter documented in this encounter [facility] Work Phone: [phone] note* Diagnosis Right arm fracture, closed, initial encounter documented in this encounter [facility] Work Phone: [phone] note* Diagnosis Closed 3-part fracture of proximal humerus with routine healing, right Closed 3-part fracture of proximal humerus with routine healing, right Closed 3-part fracture of proximal humerus with routine healing, right documented in this encounter [facility] Work Phone: [phone] note* Diagnosis Closed 3-part fracture of proximal humerus with routine healing, right documented in this encounter [facility] Work Phone: [phone] note* Diagnosis Closed 3-part fracture of proximal humerus with routine healing, right documented in this encounter [facility] Work Phone: [phone] note* Diagnosis Closed 3-part fracture of proximal humerus with routine healing, right Closed 3-part fracture of proximal humerus with routine healing, right documented in this encounter [facility] Work Phone: [phone] note* Diagnosis Closed 3-part fracture of proximal humerus with routine healing, right documented in this encounter [facility] Work Phone: [phone] note* Diagnosis Closed 3-part fracture of proximal humerus with routine healing, right documented in this encounter [facility] Work Phone: [phone] note* Diagnosis Closed 3-part fracture of proximal humerus with routine healing, right Unspecified fracture of upper end of unspecified humerus, initial encounter for closed fracture- Primary documented in this encounter [facility] Work Phone: [phone] note* Diagnosis Preop examination- Primary Preoperative examination, unspecified Essential hypertension Unspecified essential hypertension Gastroesophageal reflux disease without esophagitis Esophageal reflux Obesity, Class III, BMI 40-49.9 (morbid obesity) (HCC) Morbid obesity [facility] Diagnosis Unspecified fracture of upper end of unspecified humerus, initial encounter for closed fracture- Primary Closed 3-part fracture of proximal humerus with routine healing, right Unspecified fracture of upper end of unspecified humerus, initial encounter for closed fracture- Primary Unspecified fracture of upper end of unspecified humerus, initial encounter for closed fracture documented in this encounter [facility] Work Phone: [phone] note* Diagnosis Closed 3-part fracture of proximal humerus with routine healing, right- Primary documented in this encounter [facility] Work Phone: [phone] note* Diagnosis Unspecified fracture of upper end of unspecified humerus, initial encounter for closed fracture- Primary Unspecified fracture of upper end of unspecified humerus, initial encounter for closed fracture S/P reverse total shoulder arthroplasty, right Primary hypertension Unspecified essential hypertension Hyperlipidemia Other and unspecified hyperlipidemia Gastroesophageal reflux disease Esophageal reflux S/P reverse total shoulder arthroplasty, right documented in this encounter [facility] Work Phone: [phone] note* Diagnosis History of total shoulder replacement, right documented in this encounter [facility] Work Phone: [phone] note* Diagnosis S/P reverse total shoulder arthroplasty, right documented in this encounter [facility] Work Phone: [phone] note* Diagnosis Extensor tendon rupture of hand, right, initial encounter- Primary Wrist arthritis Unspecified arthropathy, forearm Polyarthralgia Pain in joint, multiple sites Wrist arthritis Unspecified arthropathy, forearm documented in this encounter [facility] Work Phone: [phone] note* Diagnosis Essential hypertension with goal blood pressure less than 130/80 [facility] Diagnosis Wrist arthritis Unspecified arthropathy, forearm documented in this encounter [facility] Work Phone: [phone] note* Diagnosis Right arm fracture, closed, initial encounter- Primary History of total shoulder replacement, right S/P reverse total shoulder arthroplasty, right History of total shoulder replacement, right documented in this encounter [facility] Work Phone: [phone] note* Diagnosis Polyarthralgia Pain in joint, multiple sites documented in this encounter [facility] Work Phone: [phone] note* Diagnosis Extensor tendon rupture of hand, right, initial encounter- Primary documented in this encounter [facility] Work Phone: Evaluation note* Diagnosis Spontaneous rupture of extensor tendons, right hand- Primary History of total shoulder replacement, right S/P reverse total shoulder arthroplasty, right documented in this encounter [facility] Work Phone: Evaluation note* Diagnosis Preop examination- Primary Preoperative examination, unspecified Extensor tendon rupture of hand, right, subsequent encounter Bilateral lower extremity edema Edema Elevated antinuclear antibody (NOEMY) level Other and unspecified nonspecific immunological findings Elevated rheumatoid factor Other and unspecified nonspecific immunological findings [facility] Diagnosis Bilateral lower extremity edema- Primary Edema Essential hypertension Unspecified essential hypertension [facility] Diagnosis Spontaneous rupture of extensor tendons, right hand- Primary Spontaneous rupture of extensor tendons, right hand Class 2 obesity with body mass index (BMI) of 38.0 to 38.9 in adult documented in this encounter [facility] Work Phone: Evaluation note* Diagnosis Spontaneous rupture of extensor tendons, right hand- Primary History of total shoulder replacement, right S/P reverse total shoulder arthroplasty, right History of total shoulder replacement, right S/P reverse total shoulder arthroplasty, right documented in this encounter [facility] Work Phone: Evaluation note* Diagnosis Screening mammogram for breast cancer- Primary Screening mammogram for breast cancer [facility] Diagnosis Bilateral lower extremity edema Edema Essential hypertension Unspecified essential hypertension [facility]* Diagnosis Bilateral impacted cerumen- Primary Impacted cerumen Sensorineural hearing loss, bilateral [facility] Diagnosis Bilateral lower extremity edema On potassium wasting diuretic therapy [facility]* Diagnosis Bilateral lower extremity edema Edema Essential hypertension Unspecified essential hypertension [facility]* Diagnosis Extensor tendon rupture of hand, right, initial encounter- Primary documented in this encounter [facility] Work Phone: Evaluation note* Diagnosis Closed 3-part fracture of proximal humerus with routine healing, right- Primary Right arm fracture, closed, initial encounter Closed 3-part fracture of proximal humerus with routine healing, right Closed 3-part fracture of proximal humerus with routine healing, right S/P reverse total shoulder arthroplasty, right documented in this encounter [facility] Work Phone: Evaluation note* Diagnosis Closed 3-part fracture of proximal humerus with routine healing, right- Primary Right arm fracture, closed, initial encounter Closed 3-part fracture of proximal humerus with routine healing, right Closed 3-part fracture of proximal humerus with routine healing, right S/P reverse total shoulder arthroplasty, right- Primary S/P reverse total shoulder arthroplasty, right documented in this encounter [facility] Work Phone: Evaluation note* Diagnosis Closed 3-part fracture of proximal humerus with routine healing, right- Primary Right arm fracture, closed, initial encounter Closed 3-part fracture of proximal humerus with routine healing, right Closed 3-part fracture of proximal humerus with routine healing, right Extensor tendon rupture of hand, right, initial encounter Extensor tendon rupture of hand, right, initial encounter documented in this encounter [facility] Work Phone: Evaluation note* Diagnosis Closed 3-part fracture of proximal humerus with routine healing, right- Primary Right arm fracture, closed, initial encounter Closed 3-part fracture of proximal humerus with routine healing, right Closed 3-part fracture of proximal humerus with routine healing, right Extensor tendon rupture of hand, right, initial encounter documented in this encounter [facility] Work Phone: Evaluation note* Diagnosis Closed 3-part fracture of proximal humerus with routine healing, right- Primary Right arm fracture, closed, initial encounter Closed 3-part fracture of proximal humerus with routine healing, right Closed 3-part fracture of proximal humerus with routine healing, right S/P reverse total shoulder arthroplasty, right- Primary S/P reverse total shoulder arthroplasty, right documented in this encounter [facility] Work Phone: Evaluation note* Diagnosis Closed 3-part fracture of proximal humerus with routine healing, right- Primary Right arm fracture, closed, initial encounter Closed 3-part fracture of proximal humerus with routine healing, right Closed 3-part fracture of proximal humerus with routine healing, right S/P reverse total shoulder arthroplasty, right documented in this encounter [facility] Work Phone: Evaluation note* Diagnosis Bilateral lower extremity edema Edema Essential hypertension Unspecified essential hypertension [facility] Diagnosis Closed 3-part fracture of proximal humerus with routine healing, right- Primary Right arm fracture, closed, initial encounter Closed 3-part fracture of proximal humerus with routine healing, right Closed 3-part fracture of proximal humerus with routine healing, right S/P reverse total shoulder arthroplasty, right- Primary S/P reverse total shoulder arthroplasty, right documented in this encounter [facility] Work Phone: Evaluation note* Diagnosis Closed 3-part fracture of proximal humerus with routine healing, right- Primary Right arm fracture, closed, initial encounter Closed 3-part fracture of proximal humerus with routine healing, right Closed 3-part fracture of proximal humerus with routine healing, right S/P reverse total shoulder arthroplasty, right documented in this encounter [facility] Work Phone: Evaluation note* Diagnosis Closed 3-part fracture of proximal humerus with routine healing, right- Primary Right arm fracture, closed, initial encounter Closed 3-part fracture of proximal humerus with routine healing, right Closed 3-part fracture of proximal humerus with routine healing, right Arthritis of right wrist Extensor tendon rupture of hand, right, initial encounter documented in this encounter [facility] Work Phone: Evaluation note* Diagnosis Closed 3-part fracture of proximal humerus with routine healing, right- Primary Right arm fracture, closed, initial encounter Closed 3-part fracture of proximal humerus with routine healing, right Closed 3-part fracture of proximal humerus with routine healing, right Arthritis of right wrist Extensor tendon rupture of hand, right, initial encounter Arthritis of right wrist Extensor tendon rupture of hand, right, initial encounter documented in this encounter [facility] Work Phone: Evaluation note* Diagnosis Mixed hyperlipidemia- Primary Essential hypertension with goal blood pressure less than 130/80 Coronary artery disease involving [place] coronary artery of [place] heart without angina pectoris Coronary artery disease involving [place] coronary artery of [place] heart without angina pectoris Essential hypertension Unspecified essential hypertension LV dysfunction with recoverability Left heart failure Mixed hyperlipidemia Mixed hyperlipidemia Essential hypertension with goal blood pressure less than 130/80 Coronary artery disease involving [place] coronary artery of [place] heart without angina pectoris Essential hypertension Unspecified essential hypertension LV dysfunction with recoverability Left heart failure Primary hypertension- Primary Unspecified essential hypertension LV dysfunction with recoverability Left heart failure documented in this encounter [facility] for referral (narrative)* Diagnostic Procedure Only (Routine) - Pending Review Specialty Diagnoses / Procedures Referred By Phill t Referred To Contact [facility] Diagnoses Visit for screening mammogram Procedures MILDRED SCREENING SCREENING MAMMOGRAPHY BI 2-VIEW BREAST INC CAD Trace Mendiola DO [address] [place] [address] [facility] [address] [place] [address] Referral ID Status Reason Start Date Expiration Date Visits Requested Visits Authorized [id number] Pending Review Auto-Generat ed Referral 04/08/2023 1 1 [facility] for referral (narrative)* Consultation (Routine) - Pending Review Specialty Diagnoses / Procedures Referred By Phill t Referred To Contact Physical Therapy Diagnoses S/P reverse total shoulder arthroplasty, right Indira Levy MD [address] [facility], [address] [place] [id number] Referral ID Status Reason Start Date Expiration Date Visits Requested Visits Authorized [id number] Pending Review Specialty Services Required 09/24/2023 09/23/2024 1 1 * Imaging (Routine) - Authorized Specialty Diagnoses / Procedures Referred By Phill t Referred To Contact Radiology Diagnoses History of total shoulder replacement, right S/P reverse total shoulder arthroplasty, right Procedures XR shoulder right 2+ views Indira Levy MD [address] [facility], [address] [place] [id number] Referral ID Status Reason Start Date Expiration Date Visits Requested Visits Authorized [id number] Authorized Perform Procedure 09/24/2023 09/23/2024 1 1 [facility] Work Phone: Reason for referral (narrative)* Diagnostic Procedure Only (Routine) - Closed Specialty Diagnoses / Procedures Referred By Contblanca t Referred To Contact [facility] Diagnoses Screening mammogram for breast cancer Procedures MILDRED SCREENING SCREENING MAMMOGRAPHY BI 2-VIEW BREAST INC Kaylen Rivera APRN.CNP [address] [place] [address] Br Imaging [address] [place] [address] Referral ID Status Reason Start Date Expiration Date V isits Requested Visits Authorized [id number] Closed Auto-Generate d Referral 03/22/2023 04/20/2024 1 1 [facility] ([facility] Consultation (Routine) - Pending Review Specialty Diagnoses / Procedures Referred By Contact Referred To Contact Occupational Therapy Diagnoses Extensor tendon rupture of hand, right, initial encounter Maryam Abdullahi MD [address] [facility], [address] [place] [address] [id number] [place] [address] Referral ID Status Reason Start Date Expiration Date Visits Requested Visits Authorized [id number] Pending Review Specialty Services Required 10/19/2023 10/18/2024 1 1 [facility] Work Phone: Reason for referral (narrative)* Consultation (Routine) - Pending Review Specialty Diagnoses / Procedures Referred By Phill yates Referred To Contact Physical Therapy Diagnoses S/P reverse total shoulder arthroplasty, right Indira Levy MD [address] [facility], [address] [place] [address] Referral ID Status Reason Start Date Expiration Date Visits Requested Visits Authorized [id number] Pending Review Specialty Services Required 11/12/2023 11/11/2024 1 1 * Imaging (Routine) - Authorized Specialty Diagnoses / Procedures Referred By Phill yates Referred To Contact Radiology Diagnoses S/P reverse total shoulder arthroplasty, right Procedures XR shoulder right 2+ views Indira Levy MD [address] [facility], [address] [place] [id number] Referral ID Status Reason Start Date Expiration Date Visits Requested Visits Authorized [id number] Authorized Perform Procedure 11/12/2023 11/11/2024 1 1 [facility] Work Phone: iwi for visit Narrative* Diagnostic Procedure Only (Routine) - Closed Specialty Diagnoses / Procedures Referred By Phill yates Referred To Contact [facility] IMAGING Diagnoses Visit for screening mammogram Procedures MILDRED SCREENING SCREENING MAMMOGRAPHY BI 2-VIEW BREAST INC CAD Trace Mendiola L, DO [address] [place] [address] [facility] Imaging [address] [place] [address] Referral ID Status Reason Start Date Expiration Date V isits Requested Visits Authorized [id number] Closed Auto-Generate d Referral 03/09/2022 04/08/2023 1 1 [facility] for visit Narrative* Diagnostic Procedure Only (Routine) - Closed Specialty Diagnoses / Procedures Referred By Phill yates Referred To Contact BR IMAGING Diagnoses Screening mammogram for breast cancer Procedures MILDRED SCREENING SCREENING MAMMOGRAPHY BI 2-VIEW BREAST INC CAD Kaylen Best, SNOUT PULLER.VEGETABLE PREPARER [address] [place] [address] [facility] [address] [place] [address] Referral ID Status Reason Start Date Expiration Date V isits Requested Visits Authorized [id number] Closed Auto-Generate d Referral 03/22/2023 04/20/2024 1 1 [facility] for visit Narrative* Imaging (Routine) - Authorized Specialty Diagnoses / Procedures Referred By Contac t Referred To Contact Radiology Diagnoses S/P reverse total shoulder arthroplasty, right Procedures XR shoulder right 2+ views Indira Levy MD [address] [facility], [address] [place], [place] [id number] Phone: tel: fax: Referral ID Status Reason Start Date Expiration Date Visits Requested Visits Authorized [id number] Authorized Perform Procedure 08/07/2024 08/07/2025 1 1 [facility] Work Phone: Reason for visit Narrative* Imaging (Routine) - Authorized Specialty Diagnoses / Procedures Referred By Phill yates Referred To Contact Radiology Diagnoses Arthritis of right wrist Extensor tendon rupture of hand, right, initial encounter Procedures XR wrist right 3+ views Maryam Abdullahi MD [address] [facility], [address] [place] [address] Phone: tel: fax: Referral ID Status Reason Start Date Expiration Date Visits Requested Visits Authorized [id number] Authorized Perform Procedure 08/14/2024 08/14/2025 1 1 [facility] Work Phone: Instructions * Patient Instructions - Sam Castano DO - 05/18/2017 10:00 AM EST Look up Chair yoga on the computer. 30 min twice a week. in this encounter* Patient Instructions* Shawna Zhou CNP - 09/07/2018 9:31 AM EDT Continue same medications Call for any concerns documented in this encounter* Patient Instructions* Shawna Zhou CNP - 05/17/2019 9:32 AM EST Blood work when fasting 12 hours Call for concerns Continue medications documented in this encounter* Patient Instructions* Janina Mckeon RN - 05/21/2020 9:24 AM EST PROVIDER: DR CANDICE KIRAN NURSE: NKECHI MCKEON RN PHONE: [phone] FAX: [phone] documented in this encounter Assessments Diagnosis Edema of both legs - Primary Edema Coronary artery disease invo lving [place] coronary artery of [place] heart without angina pectoris Essential hypertension Unspecified essential hypertension LV dysfunction with recovera bility Left heart failure Mixed hyperlipidemia Diagnosis Coronary artery disease involving [place] coronary artery of [place] heart without angina pectoris Essential hypertension Unspecified essential hypertension LV dysfunction with recoverability Left heart failure Mixed hyperlipidemia Diagnosis Mixed hyperlipidemia Essential hypertension with goal blood pressure less than 130/80 Coronary artery disease involving [place] coronary artery of [place] heart without angina pectoris Essential hypertension Unspecified essential hypertension LV dysfunction with recoverability Left heart failure Diagnosis Coronary artery disease involving [place] coronary artery of [place] heart without angina pectoris- Primary Mixed hyperlipidemia LV dysfunction with recoverability Left heart failure Essential hypertension Unspecified essential hypertension Diagnosis Mixed hyperlipidemia Essential hypertension with goal blood pressure less than 130/80 Diagnosis Essential hypertension with goal blood pressure less than 130/80 History of Present Illness * Shawna Zhou, VEGETABLE PREPARER - 09/07/2018 9:15 AM EDT Subjective: Trace DO Felisha Guillory is a 73 y.o. female seen in the office today for Follow-up (6mo-Pt Denies Chest pain/pressure/SOB/Swelling ) . HPI: She was seen at [facility] [place] office on September 07, 2018. She is a 73-year-old female with history of coronary artery disease, non-ST elevation myocardial infarction, gastroesophageal reflux disease, hypertension, hyperlipidemia, and osteoarthritis. She is status post non-STEMI in 2013. Left heart catheterization at that time found nonobstructive coronary disease and ejection fraction of 40%. By echocardiogram in 2017 EF had improved to 55 to 60%. The office today she offers no complaints of chest pain, shortness breath, lightheadedness or palpitations. She is compliant with her medications. We did review the purpose of her medications Histories: Past Medical History: Diagnosis Date Coronary artery disease GERD (gastroesophageal reflux disease) Hyperlipidemia Hypertension Non-ST elevation myocardial infarction (NSTEMI) ([facility]) 03/2014 Osteoarthritis Past Surgical History: Procedure Laterality Date BASAL CELL CARCINOMA EXCISION BUNIONECTOMY CARDIAC CATHETERIZATION Left 01/25/2014 EF 40% History reviewed. No pertinent family history. Social History Tobacco Use Smoking status: Never Smoker Smokeless tobacco: Never Used Substance Use Topics Alcohol use: No Drug use: No Medication List Accurate as of 09/07/18 9:34 AM. If you have any questions, ask your nurse or doctor. START taking these medications docusate sodium 100 MG capsule Commonly known as: COLACE Take 1 (one) capsule (100 mg total) by mouth 2 (two) times a day for 10 days . Started by: Shawna Zhou CNP CONTINUE taking these medications aspirin 81 MG EC tablet atorvastatin 20 MG tablet Commonly known as: LIPITOR Take 1 (one) tablet (20 mg total) by mouth daily . carvedilol 3.125 MG tablet Commonly known as: COREG Take 1 (one) tablet (3.125 mg total) by mouth 2 (two) times a day with meals . enalapril 2.5 MG tablet Commonly known as: VASOTEC Take 1 (one) tablet (2.5 mg total) by mouth daily . furosemide 20 MG tablet Commonly known as: LASIX Take 1 (one) tablet (20 mg total) by mouth daily as needed (for lower extremity swelling). multivitamin capsule naproxen 250 MG tablet Commonly known as: NAPROSYN OCUVITE PRESERVISION ORAL pantoprazole 40 MG tablet Commonly known as: PROTONIX potassium chloride 10 MEQ CR tablet Commonly known as: K-DUR Take 1 (one) tablet (10 mEq total) by mouth daily When taking furosemide 20 mg daily for lower extremity swelling . Where to Get Your Medications Information about where to get these medications is not yet available Ask your nurse or doctor about these medications docusate sodium 100 MG capsule Allergies Allergen Reactions No Known Drug Allergies Review of Systems Constitution: Negative for decreased appetite, malaise/fatigue and weight gain. HENT: Negative for hearing loss. Eyes: Negative for blurred vision and visual disturbance. Cardiovascular: Negative for chest pain, claudication, dyspnea on exertion, irregular heartbeat, leg swelling, near-syncope, orthopnea, palpitations, paroxysmal nocturnal dyspnea and syncope. Respiratory: Negative for cough, shortness of breath, sleep disturbances due to breathing, snoring and wheezing. Endocrine: Negative for cold intolerance and heat intolerance. Hematologic/Lymphatic: Negative for bleeding problem. Does not bruise/bleed easily. Skin: Negative for flushing and rash. Musculoskeletal: Negative for back pain, falls and myalgias. Gastrointestinal: Negative for abdominal pain, change in bowel habit and heartburn. Genitourinary: Negative for frequency and hematuria. Neurological: Negative for disturbances in coordination, dizziness, headaches, light-headedness, paresthesias and weakness. Psychiatric/Behavioral: Negative for altered mental status and depression. Allergic/Immunologic: Negative for environmental allergies and persistent infections. Objective: Physical Exam Constitutional: She is oriented to person, place, and time. She appears well- developed and well-nourished. No distress. HENT: Head: Normocephalic and atraumatic. Eyes: Pupils are equal, round, and reactive to light. Conjunctivae are normal. Right eye exhibits no discharge. Left eye exhibits no discharge. Neck: Normal range of motion. Neck supple. No hepatojugular reflux and no JVD present. Carotid bruit is not present. No thyromegaly present. Cardiovascular: Normal rate, regular rhythm, S1 normal, S2 normal, normal heart sounds, intact distal pulses and normal pulses. PMI is not displaced. Exam reveals no gallop. No murmur heard. Pulmonary/Chest: Effort normal and breath sounds normal. No respiratory distress. She has no wheezes. She has no rales. Abdominal: Soft. Bowel sounds are normal. Musculoskeletal: Normal range of motion. She exhibits no edema. Neurological: She is alert and oriented to person, place, and time. Skin: Skin is warm and dry. She is not diaphoretic. Psychiatric: She has a normal mood and affect. Her behavior is normal. Vitals: Vitals: 09/07/18 0923 BP: 124/80 BP Location: Left arm Patient Position: Sitting BP Cuff Size: Adult Pulse: 75 SpO2: 97% Weight: 91.6 kg (202 lb) Height: 5' 5 Lab Review: No visits with results within 6 Month(s) from this visit. Latest known visit with results is: No results found for any previous visit. Assessment & Plan: Coronary artery disease March 2014 mild plaque disease She is status post an STEMI and left heart cath showed nonobstructive coronary disease. In the office today she is physically active without provocation of symptoms. Continue risk factor reduction with diet and exercise Hypertension Blood pressure controlled in the office today. We will continue medications LV dysfunction with recoverability She has had recoverability of her LV function. No evidence of fluid retention in the office today. [employer] functional class I Hyperlipidemia Currently on atorvastatin 20 mg daily. Lipids are managed by primary care provider. Orders Placed This Encounter docusate sodium (COLACE) 100 MG capsule Sig: Take 1 (one) capsule (100 mg total) by mouth 2 (two) times a day for 10 days . Dispense: 10 capsule Refill: 0 Other Tests Ordered: No orders of the defined types were placed in this encounter. Follow Up Ordered: Return in about 6 months (around 03/10/2019) for Magno. Referring No ref. provider found Shawna Zhou CNP documented in this encounter* Shawna Zhou CNP - 05/17/2019 9:22 AM EST Subjective: DO Felisha Friedman is a 74 y.o. female seen in the office today for Follow-up (Denies Chest pain,pressure,SOB,Swelling ) . HPI: She was seen at [facility] [place] office on May 17, 2019. She is a 74-year-old female with history of coronary artery disease, non-ST elevation myocardial infarction, gastroesophageal reflux disease, hypertension, hyperlipidemia, and osteoarthritis. She is status post non-STEMI in 2013. Left heart catheterization at that time found nonobstructive coronary disease and ejection fraction of 40%. By echocardiogram in 2017 EF had improved to 55 to 60%. In the office today she denies any chest pain, shortness of breath, lightheadedness or palpitations. She was walking on the sidewalk and fell. She said the sidewalk was uneven. So she has some knee discomfort but other than that she offers no complaints. Vital signs are stable. This time we will make no significant changes. She has been a while since she has had her blood drawn and since I am renewing her SUSANA inhibitor as well as her statin will check lipids and a comprehensive metabolic profile when she is fasting 12 hours. Histories: Past Medical History: Diagnosis Date Coronary artery disease GERD (gastroesophageal reflux disease) Hyperlipidemia Hypertension Non-ST elevation myocardial infarction (NSTEMI) ([facility]) 03/2014 Osteoarthritis Past Surgical History: Procedure Laterality Date BASAL CELL CARCINOMA EXCISION BUNIONECTOMY CARDIAC CATHETERIZATION Left 01/25/2014 EF 40% History reviewed. No pertinent family history. Social History Tobacco Use Smoking status: Never Smoker Smokeless tobacco: Never Used Substance Use Topics Alcohol use: No Drug use: No Patient's Medications New Prescriptions No medications on file Previous Medications ASPIRIN 81 MG EC TABLET Take 81 mg by mouth daily. FUROSEMIDE (LASIX) 20 MG TABLET Take 1 (one) tablet (20 mg total) by mouth daily as needed (for lower extremity swelling). MULTIVITAMIN CAPSULE Take 1 capsule by mouth daily. NAPROXEN (NAPROSYN) 250 MG TABLET Take 250 mg by mouth 2 (two) times a day as needed. PANTOPRAZOLE (PROTONIX) 40 MG TABLET Take 40 mg by mouth daily. POTASSIUM CHLORIDE (K-DUR) 10 MEQ CR TABLET Take 1 (one) tablet (10 mEq total) by mouth daily When taking furosemide 20 mg daily for lower extremity swelling . VIT A/VIT C/VIT E/ZINC/COPPER (OCUVITE PRESERVISION ORAL) Take by mouth. Modified Medications Modified Medication Previous Medication ATORVASTATIN (LIPITOR) 20 MG TABLET atorvastatin (LIPITOR) 20 MG tablet Take 1 (one) tablet (20 mg total) by mouth daily . Take 1 (one) tablet (20 mg total) by mouth daily. CARVEDILOL (COREG) 3.125 MG TABLET carvedilol (COREG) 3.125 MG tablet Take 1 (one) tablet (3.125 mg total) by mouth 2 (two) times a day with meals . Take 1 (one) tablet (3.125 mg total) by mouth 2 (two) times a day with meals . ENALAPRIL (VASOTEC) 2.5 MG TABLET enalapril (VASOTEC) 2.5 MG tablet Take 1 (one) tablet (2.5 mg total) by mouth daily . Take 1 tablet (2.5 mg total) by mouth daily. Discontinued Medications ENALAPRIL (VASOTEC) 2.5 MG TABLET Take 1 (one) tablet (2.5 mg total) by mouth daily . Allergies Allergen Reactions No Known Drug Allergies Review of Systems Constitution: Negative for decreased appetite, malaise/fatigue and weight gain. HENT: Negative for hearing loss. Eyes: Negative for blurred vision and visual disturbance. Cardiovascular: Negative for chest pain, claudication, dyspnea on exertion, irregular heartbeat, leg swelling, near-syncope, orthopnea, palpitations, paroxysmal nocturnal dyspnea and syncope. Respiratory: Negative for cough, shortness of breath, sleep disturbances due to breathing, snoring and wheezing. Endocrine: Negative for cold intolerance and heat intolerance. Hematologic/Lymphatic: Negative for bleeding problem. Does not bruise/bleed easily. Skin: Negative for flushing and rash. Musculoskeletal: Positive for falls (recent fall on uneven side walk) and joint pain (knees hurt from fall). Negative for back pain and myalgias. Gastrointestinal: Negative for abdominal pain, change in bowel habit and heartburn. Genitourinary: Negative for frequency and hematuria. Neurological: Negative for disturbances in coordination, dizziness, headaches, light-headedness, paresthesias and weakness. Psychiatric/Behavioral: Negative for altered mental status and depression. Allergic/Immunologic: Negative for environmental allergies and persistent infections. Objective: Physical Exam Constitutional: She is oriented to person, place, and time. She appears well- developed and well-nourished. No distress. HENT: Head: Normocephalic and atraumatic. Eyes: Pupils are equal, round, and reactive to light. Conjunctivae are normal. Right eye exhibits no discharge. Left eye exhibits no discharge. Neck: Normal range of motion. Neck supple. No hepatojugular reflux and no JVD present. Carotid bruit is not present. No thyromegaly present. Cardiovascular: Normal rate, regular rhythm, S1 normal, S2 normal, normal heart sounds, intact distal pulses and normal pulses. PMI is not displaced. Exam reveals no gallop. No murmur heard. Pulmonary/Chest: Effort normal and breath sounds normal. No respiratory distress. She has no wheezes. She has no rales. Abdominal: Soft. Bowel sounds are normal. Musculoskeletal: Normal range of motion. General: No edema. Neurological: She is alert and oriented to person, place, and time. Skin: Skin is warm and dry. She is not diaphoretic. Psychiatric: She has a normal mood and affect. Her behavior is normal. Vitals: Vitals: 05/17/19 0917 BP: 134/83 Pulse: 67 SpO2: 100% Weight: 92.1 kg (203 lb 1.6 oz) Height: 5' 5 Lab Review: No visits with results within 6 Month(s) from this visit. Latest known visit with results is: No results found for any previous visit. Assessment & Plan: Coronary artery disease March 2014 mild plaque disease She offers no complaints of chest pain, shortness of breath, lightheadedness or palpitations. She is compliant with her medical therapy. Continue risk factor reduction with diet and exercise as well as weight loss Hypertension Blood pressure controlled in the office today. Renewed her SUSANA inhibitor so will check a comprehensive metabolic profile when she is fasting. Hyperlipidemia Renewed her statin therapy today. We will check lipids when she is fasting 12 hours LV dysfunction with recoverability No evidence of fluid retention in the office today. Denies any significant symptoms. [facility] [employer] functional class I Orders Placed This Encounter Lipid panel Fasting 12 hours Standing Status: Future Standing Expiration Date: 05/17/2020 Comprehensive metabolic panel Standing Status: Future Standing Expiration Date: 05/17/2020 atorvastatin (LIPITOR) 20 MG tablet Sig: Take 1 (one) tablet (20 mg total) by mouth daily . Dispense: 90 tablet Refill: 3 carvediloL (COREG) 3.125 MG tablet Sig: Take 1 (one) tablet (3.125 mg total) by mouth 2 (two) times a day with meals . Dispense: 180 tablet Refill: 3 enalapril (VASOTEC) 2.5 MG tablet Sig: Take 1 (one) tablet (2.5 mg total) by mouth daily . Dispense: 180 tablet Refill: 1 Other Tests Ordered: No orders of the defined types were placed in this encounter. Follow Up Ordered: Return in about 6 months (around 11/15/2019) for Magno. Referring No ref. provider found Shawna Zhou CNP documented in this encounter* Candice Kiran MD - 05/21/2020 9:40 AM EST Telephone Visit Via Phone Call [facility] [address] [facility] [address] [facility] [address] Telephone Visit [facility] 05/21/2020 Candice Kiran MD Provider Location: [facility] [address] [facility] [address] [facility] [phone] Patient Location [place]: None Patient Location: Patient's Home Patient: Felisha Joaquin Date of : 1945 (75 y.o. female) PCP: Trace Mendiola DO I discussed risks, benefits and alternatives of a telephone visit telemedicine consultation with the patient (and any accompanying persons) including the risks that the patient's personal health details and medical records will be discussed over real-time, synchronous, interactive audio technology,the visit will not be recorded without the express consent of both the provider and the patient, and that there are inherent diagnostic limitations compared to [id number] evaluations. We elected toproceed with the telephone visit telemedicine consultation. HPI Ms. Joaquin is a 75 y.o. female with a past medical history of coronary artery disease status post non-ST elevation myocardial infarction in 2013 at which time a cardiac catheterization showed only nonobstructive coronary disease. Her LVEF was noted to be 40% at that time. She was started on goal-directed medical therapy and did have recovery of her ventricular function. She was last seen by our nurse practitioner in April 2019 at which time she was doing well from a cardiovascular standpoint and six-month follow-up was recommended. Over the last year, Felisha has done well. She denies any cardiovascular concerns. She is able to perform her ADLs without difficulty. She denies chest discomfort. Denies orthopnea, PND. She has not required use of Lasix in the last year that she can recall. No hospitalizations or ER visits over the last year. No bleeding issues on aspirin 81 mg daily. She denies any significant dizziness or lightheadedness. She has had no recurrent falls. She denies syncope. The following portions of the patient's history were reviewed and updated as appropriate: allergies, current medications, past family history, past medical history, past social history, past surgicalhistory and problem list. Review of Systems Patient's Medications New Prescriptions No medications on file Previous Medications ASPIRIN 81 MG EC TABLET Take 81 mg by mouth daily. ATORVASTATIN (LIPITOR) 20 MG TABLET TAKE 1 TABLET EVERY DAY CARVEDILOL (COREG) 3.125 MG TABLET TAKE 1 TABLET TWICE DAILY WITH MEALS ENALAPRIL (VASOTEC) 2.5 MG TABLET Take 1 (one) tablet (2.5 mg total) by mouth daily . FUROSEMIDE (LASIX) 20 MG TABLET Take 1 (one) tablet (20 mg total) by mouth daily as needed (for lower extremity swelling). MULTIVITAMIN CAPSULE Take 1 capsule by mouth daily. NAPROXEN (NAPROSYN) 250 MG TABLET Take 250 mg by mouth 2 (two) times a day as needed. PANTOPRAZOLE (PROTONIX) 40 MG TABLET Take 40 mg by mouth daily. POTASSIUM CHLORIDE (K-DUR) 10 MEQ CR TABLET Take 1 (one) tablet (10 mEq total) by mouth daily When taking furosemide 20 mg daily for lower extremity swelling . VIT A/VIT C/VIT E/ZINC/COPPER (OCUVITE PRESERVISION ORAL) Take by mouth. Modified Medications No medications on file Discontinued Medications No medications on file BP 143/77 Ht 5' 5 Wt 98.4 kg (217 lb) BMI 36.11 kg/m Assessment/Plan: Ms. Joaquin is a 75 year old female with a past medical history of coronary artery disease status post non-ST elevation myocardial infarction in 2013, hypertension and hyperlipidemia. She is currently asymptomatic from a cardiovascular standpoint with stable functional capacity. Her heart rate and blood pressure are acceptable today on her current medical regimen. I elected to make no changes to her current medical regimen and she will continue on carvedilol andenalapril for her previous history of left ventricular systolic dysfunction which is now recovered.She may continue to use Lasix with potassium supplementation on an as-needed basis. She will continue on aspirin 81 mg daily and atorvastatin for her underlying coronary disease. Ms. Joaquin remains self limited in her activities. She should engage in daily aerobic activity as tolerated for long-term cardiovascular health and weight loss. Based on the most recent ACC/AHA guidelines, Ms. Jaoquin does not require SBE prophylaxis prior to dental, GI, or procedures. I will follow-up with Ms. Joaquin in 1 year with no testing; however, if she has any concerns before that time, she will contact us for further evaluation. I have spent 7 minutes with the patient reviewing the HPI and Plan of Care. 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 Advance Directives and Living Will Date Activated Date Inactivated Comments 08/10/2023 8:30 AM Question Answer Comments Plan of Care: Code Status Discussion Completed Decision Maker: Patient Date Activated Date Inactivated Comments 08/10/2023 8:30 AM Question Answer Comments Plan of Care: Code Status Discussion Completed Decision Maker: Patient Summary Purpose Family History No Family History Records FoundNo Family History Records FoundNo Family History Records FoundNo Family History Records FoundNo Family History Records FoundNo Family History Records FoundNo Family History Records FoundNo Family History Records FoundNo Family History Records FoundNo Family History Records FoundNo Family History Records Found Procedure Findings Note Post Operative Note: Post-Pr ocedure Diagnosis: 1. Combined Form Age Related Cataract Right Eye Procedure: 1. Cataract Extraction with Intraocular Lens Implant Right Eye Surgeon: Yaya Juan MD Resident/Fellow/Other Special Education Instructor: None Estimated Blood Loss (mL): none Specimen: no Findings: 1. Combined Form Age Related Cataract Right Eye Operative Report Dictated: Dictation: not applicable - note contains Operative Report Operative Report: The patient was correctly identified and the patient's operative eye was marked with a marking pen and verified with the patient in the pre-operative area. The operative eye was dilated in the preoperative area. The patient was then taken to the operating room where timeout was performed before starting the procedure. Combined anesthesia with intravenous sedation and topical tetracaine eyedrops were instilled into the right eye. The operative eye was prepped and draped in the standard sterile ophthalmic fashion in preparation for ophthalmic surgery. A (more content not included)... Note Post Operative Note: Post-Pr ocedure Diagnosis: 1. Combined Form Age Related Cataract Left Eye Procedure: 1. Cataract Extraction with Intraocular Lens Implant Left Eye Surgeon: Yaya Juan MD Resident/Fellow/Other Special Education Instructor: None Estimated Blood Loss (mL): none Specimen: no Findings: 1. Combined Form Age Related Cataract Left Eye Operative Report Dictated: Dictation: not applicable - note contains Operative Report Operative Report: The patient was correctly identified in the preop area and the operative eye was marked with a marking pen. The operative eye was dilated in the preoperative area. The patient was then taken to the operating room where timeout was performed before starting the procedure. Combined anesthesia with intravenous sedation and topical tetracaine eyedrops were given the left eye. The operative eye was prepped and draped in the standard sterile ophthalmic fashion in preparation for ophthalmic surgery. A Fermín wire speculum was then inserted between the eyelid (more content not included)... Reason for Referral Specialty Diagnoses / Procedures Referred By Contac t Referred To Contact Cardiology Diagnoses Coronary artery disease involving [place] coronary artery of [place] heart without angina pectoris Procedures ECG 12 lead Peyton Kenyon, VEGETABLE PREPARER [address] [place] [address] Referral ID Status Reason Start Date Expiration Date V isits Requested Visits Authorized [id number] Authorized 11/24/2021 11/24/2022 1 1 Specialty Diagnoses / Procedures Referred By Contac t Referred To Contact Radiology Diagnoses Right arm fracture, closed, initial encounter Procedures XR humerus right Sam Gracia MD [address] [place] [address] Referral ID Status Reason Start Date Expiration Date Visits Requested Visits Authorized [id number] Authorized Perform Procedure 06/09/2023 06/08/2024 1 1 Specialty Diagnoses / Procedures Referred By Contac t Referred To Contact Radiology Diagnoses Closed 3-part fracture of proximal humerus with routine healing, right Procedures XR humerus right Sam Gracia MD [address] [place] [address] Referral ID Status Reason Start Date Expiration Date Visits Requested Visits Authorized [id number] Authorized Perform Procedure 06/18/2023 06/17/2024 1 1 Specialty Diagnoses / Procedures [facility] To Contact Radiology Diagnoses Closed 3-part fracture of proximal humerus with routine healing, right Procedures XR shoulder right 2+ views Sam Gracia MD [address] [place] [address] Referral ID Status Reason Start Date Expiration Date Visits Requested Visits Authorized [id number] Authorized Perform Procedure 06/18/2023 06/17/2024 1 1 Referral ID Status Reason Start Date Expiration Date Visits Requested Visits Authorized [id number] Authorized Perform Procedure 06/28/2023 06/27/2024 1 1 Specialty Diagnoses / Procedures Referred By Contac t Referred To Contact Radiology Diagnoses Closed 3-part fracture of proximal humerus with routine healing, right Procedures CT shoulder right wo IV contrast Indira Levy MD [address] [facility], [address] [place] [address] Referral ID Status Reason Start Date Expiration Date Visits Requested Visits Authorized [id number] Authorized Perform Procedure 07/15/2023 07/14/2024 1 1 Specialty Diagnoses / Procedures Referred By Contac t Referred To Contact Radiology Diagnoses History of total shoulder replacement, right Procedures XR shoulder right 2+ views Indira Levy MD [address] [facility], [address] [place] [address] Referral ID Status Reason Start Date Expiration Date Visits Requested Visits Authorized [id number] Authorized Perform Procedure 08/27/2023 08/26/2024 1 1 Specialty Diagnoses / Procedures Referred By Contac t Referred To Contact Radiology Diagnoses S/P reverse total shoulder arthroplasty, right Procedures XR shoulder right 2+ views Indira Levy MD [address] [facility], [address] [place] [address] Referral ID Status Reason Start Date Expiration Date Visits Requested Visits Authorized [id number] Authorized Perform Procedure 08/30/2023 08/29/2024 1 1 Specialty Diagnoses / Procedures Referred By Contac t Referred To Contact Radiology Diagnoses Polyarthralgia Procedures MR wrist right wo IV contrast Maryam Abdullahi MD [address] [facility], [address] [place] [address] Referral ID Status Reason Start Date Expiration Date Visits Requested Visits Authorized [id number] Pending Review Perform Procedure 09/03/2023 09/02/2024 1 1 Specialty Diagnoses / Procedures Referred By Contac t Referred To Contact Radiology Diagnoses Wrist arthritis Procedures XR wrist right 3+ views Maryam Abdullahi MD [address] [facility], [address] [place] [address] Referral ID Status Reason Start Date Expiration Date Visits Requested Visits Authorized [id number] Authorized Perform Procedure 09/03/2023 09/02/2024 1 1 Referral ID Status Reason Start Date Expiration Date Visits Requested Visits Authorized [id number] Authorized Perform Procedure 09/03/2023 09/02/2024 1 1 Specialty Diagnoses / Procedures Referred By Contac t Referred To Contact Radiology Diagnoses History of total shoulder replacement, right S/P reverse total shoulder arthroplasty, right Procedures XR shoulder right 2+ views Indira Levy MD [address] [facility], [address] [place] [address] Referral ID Status Reason Start Date Expiration Date Visits Requested Visits Authorized [id number] Authorized Perform Procedure 09/24/2023 09/23/2024 1 1 Specialty Diagnoses / Procedures Referred By Contac t Referred To Contact Rheumatology Diagnoses Elevated antinuclear antibody (NOEMY) level Elevated rheumatoid factor Procedures CONSULT TO RHEUM/IMMUN DISEASE OFFICE/OUTPATIENT [facility] 60 MINUTES Chyna Grimm, SNOUT PULLER.VEGETABLE PREPARER [address] [place] [address] Referral ID Status Reason Start Date Expiration Date Visits Requested Visits Authorized [id number] Authorized PCP Requested Referral 09/28/2023 09/27/2024 1 1 Referral ID Status Reason Start Date Expiration Date Visits Requested Visits Authorized [id number] Authorized Perform Procedure 11/12/2023 11/11/2024 1 1 Specialty Diagnoses / Procedures Referred By Contac t Referred To Contact Radiology Diagnoses Extensor tendon rupture of hand, right, initial encounter Procedures XR wrist right 3+ views Maryam Abdullahi MD [address] [facility], [address] [place] [address] Referral ID Status Reason Start Date Expiration Date Visits Requested Visits Authorized [id number] Authorized Perform Procedure 01/03/2024 01/02/2025 1 1 Referral ID Status Reason Start Date Expiration Date Visits Requested Visits Authorized [id number] Authorized Perform Procedure 01/05/2024 01/04/2025 1 1 Medications Administered Section Active Administered Medications - up to 3 most recent administrations Medication Order MAR Action Action Date Dose Rate Site PHENYLephrine 2.5 % 1 Drop (AK-DILATE) 1 Drop, BOTH EYES, DIRECTED, Starting on Wed07/08/22 at 1430, Until Elda 07/09/22 at 0229, Administer for dilation PROTECT FROM LIGHT Given 07/08/2022 2:30 PM EDT 1 Drop proparacaine 0.5 % 1 Drop (ALCAINE) 1 Drop, BOTH EYES, DIRECTED, Starting on Wed07/08/22 at 1430, Until Elda 07/09/22 at 0229, Administer for pneumo tonometry, tonopen tonometry, or pachymetry. In the event of a proparacaine shortage, administer tetracaine 0.5% ophthalmic drops 1 drop in the left eye as directed for pneumo tonometry, tonopen tonometry, or pachymetry Given 07/08/2022 2:30 PM EDT 1 Drop tropicamide 1 % 1 Drop (MYDRIACYL) 1 Drop, BOTH EYES, DIRECTED, Starting on Wed07/08/22 at 1430, Until Elda 07/09/22 at 0229, Administer for dilation Given 07/08/2022 2:30 PM EDT 1 Drop Active Administered Medications - up to 3 most recent administrations Medication Order MAR Action Action Date Dose Rate Site PHENYLephrine 2.5 % 1 Drop (AK-DILATE, GONZÁLEZ-SYNEPHRINE) 1 Drop, BOTH EYES, DIRECTED, Starting on Wed08/21/22 at 1430, Until 08/22/22 at 0229, Administer for dilation PROTECT FROM LIGHT Given 08/21/2022 2:19 PM EDT 1 Drop proparacaine 0.5 % 1 Drop (ALCAINE) 1 Drop, BOTH EYES, DIRECTED, Starting on Wed08/21/22 at 1430, Until 08/22/22 at 0229, Administer for pneumo tonometry, tonopen tonometry, or pachymetry. In the event of a proparacaine shortage, administer tetracaine 0.5% ophthalmic drops 1 drop in the left eye as directed for pneumo tonometry, tonopen tonometry, or pachymetry Given 08/21/2022 2:19 PM EDT 1 Drop tropicamide 1 % 1 Drop (MYDRIACYL) 1 Drop, BOTH EYES, DIRECTED, Starting on Wed08/21/22 at 1430, Until 08/22/22 at 0229, Administer for dilation Given 08/21/2022 2:19 PM EDT 1 Drop Additional Source Comments Reason for Visit (unrecogniz ed section and content) Reason Comments Follow-up 6mo-Pt Denies Chest pain/pressure/SOB/Swelling Reason Comments Follow-up Denies Chest pain,pr essure,SOB,Swelling Reason Comments Follow-up Reason Comments Medication Refill Reason Onset Date Comments Medication Refill 08/08/2020 Reason Onset Date Comments Medication Refill 10/01/2021 Reason Comments Follow-up No cardiac concerns today Reason Comments Follow Up Reason Comments Results Reason Comments Blurred Vision Left Eye Difficulty Reading Left Eye Reason Comments Posterior Capsule Opacification Follow U p 1 week S/P yag laser posterior capsulotomy OS ( 08/12/2022 ) Reason Comments Follow-up Overdue/no cardiac c oncerns Reason Comments Ear Cleaning 6 mo follow up Ear C leaning Reason Comments Arm Injury Reason Comments Follow-up Patient fell on 05/27, she had x-rays done at that time. Fracture Patient fell on 05/27, she had x-rays done at that time. Specialty Diagnoses / Procedures Referred By Phill yates Referred To Contact Orthopaedic Surgery / Orthopedic Surgery Rick Núñez, SNOUT PULLER-VEGETABLE PREPARER [address] Department [place] [address] Referral ID Status Reason Start Date Expiration Date Visits Requested Visits Authorized [id number] Authorized Specialty Services Required 06/07/2023 06/06/2024 1 1 Specialty Diagnoses / Procedures Referred By Phill yates Referred To Contact Radiology Diagnoses Right arm fracture, closed, initial encounter Procedures XR humerus right Sam Gracia MD [address] [place] [address] Referral ID Status Reason Start Date Expiration Date Visits Requested Visits Authorized [id number] Authorized Perform Procedure 06/09/2023 06/08/2024 1 1 Reason Comments Follow-up Patient is here for FUV for Right Humerus fracture that occurred on 06/07/2023. Fracture Patient is here for FUV for Right Humerus fracture that occurred on 06/07/2023. Specialty Diagnoses / Procedures Referred By Phill yates Referred To Contact Radiology Diagnoses Closed 3-part fracture of proximal humerus with routine healing, right Procedures XR shoulder right 2+ views Sam Gracia MD [address] [place] [address] Referral ID Status Reason Start Date Expiration Date Visits Requested Visits Authorized [id number] Authorized Perform Procedure 06/18/2023 06/17/2024 1 1 Specialty Diagnoses / Procedures Referred By Phill t Referred To Contact Radiology Diagnoses Closed 3-part fracture of proximal humerus with routine healing, right Procedures XR humerus right Sam Gracia MD [address] [place] [address] Referral ID Status Reason Start Date Expiration Date Visits Requested Visits Authorized [id number] Authorized Perform Procedure 06/18/2023 06/17/2024 1 1 Reason Comments Pain FELL 06-07-23 Referral ID Status Reason Start Date Expiration Date Visits Requested Visits Authorized [id number] Authorized Perform Procedure 06/28/2023 06/27/2024 1 1 Reason Comments New Patient Visit Referral to discuss hemiarthroplasty of the right shoulderInjury on 06/07/23X-rays at Reason Comments Pre-Op Exam Right Shoulder repai r Reason Comments medical clearance form Specialty Diagnoses / Procedures Referred By Phill yates Referred To Contact Radiology Diagnoses Closed 3-part fracture of proximal humerus with routine healing, right Procedures CT shoulder right wo IV contrast Indira Levy MD [address] [facility], [address] [place] [address] Referral ID Status Reason Start Date Expiration Date Visits Requested Visits Authorized [id number] Authorized Perform Procedure 07/15/2023 07/14/2024 1 1 Reason Comments Clearance form incomplete Reason Comments Pre-op Exam TOTAL RIGHT ARTHROPL ASTY SHOULDER REVERSE POSSIBLE BICEPS TENODESIS on 08-10-23 Specialty Diagnoses / Procedures Referred By Phill t Referred To Contact Diagnoses Unspecified fracture of upper end of unspecified humerus, initial encounter for closed fracture Unspecified fracture of upper end of unspecified humerus, initial encounter for closed fracture [S42.209A] Procedures AR ARTHROPLASTY GLENOHUMERAL JOINT TOTAL SHOULDER AR TENODESIS LONG TENDON BICEPS TOTAL RIGHT ARTHROPLASTY SHOULDER REVERSE POSSIBLE BICEPS TENODESIS, LE TORNIER, REVIVE STEMS AVAILABLE , BRYNN PEREZ, beach chair, 23 HR. OBS/BEDDED OP Indira Levy MD [address] [facility], [address] [place] [address] [address] [place] [address] Referral ID Status Reason Start Date Expiration Date Visits Re quested Visits Authorized [id number] 1 1 Specialty Diagnoses / Procedures Referred By Contac t Referred To Contact Radiology Diagnoses History of total shoulder replacement, right Procedures XR shoulder right 2+ views Indira Levy MD [address] [facility], [address] [place] [address] Referral ID Status Reason Start Date Expiration Date Visits Requested Visits Authorized [id number] Authorized Perform Procedure 08/27/2023 08/26/2024 1 1 Specialty Diagnoses / Procedures Referred By Contac t Referred To Contact Radiology Diagnoses S/P reverse total shoulder arthroplasty, right Procedures XR shoulder right 2+ views Indira Levy MD [address] [facility], [address] [place] [address] Referral ID Status Reason Start Date Expiration Date Visits Requested Visits Authorized [id number] Authorized Perform Procedure 08/30/2023 08/29/2024 1 1 Reason Comments New Patient Visit Rt ring and small fi ngers cannot hold straight Pain Rt ring and small fi ngers cannot hold straight Reason Onset Date Comments Medication Refill 09/03/2023 Specialty Diagnoses / Procedures Referred By Contac t Referred To Contact Radiology Diagnoses Wrist arthritis Procedures XR wrist right 3+ views Maryam Abdullahi MD [address] [facility], [address] [place] [address] Referral ID Status Reason Start Date Expiration Date Visits Requested Visits Authorized [id number] Authorized Perform Procedure 09/03/2023 09/02/2024 1 1 Reason Comments Post-op TS-Reverse DOS: 08/09 (2.5 weeks out)Xrays today Specialty Diagnoses / Procedures Referred By Galac t Referred To Contact Radiology Diagnoses Polyarthralgia Procedures MR wrist right wo IV contrast Maryam Abdullahi MD [address] [facility], [address] [place] [address] Referral ID Status Reason Start Date Expiration Date Visits Requested Visits Authorized [id number] Authorized Perform Procedure 09/03/2023 09/02/2024 1 1 Reason Comments Follow-up MRI REVIEW Specialty Diagnoses / Procedures Referred By Phill t Referred To Contact Radiology Diagnoses History of total shoulder replacement, right S/P reverse total shoulder arthroplasty, right Procedures XR shoulder right 2+ views Indira Levy MD [address] [facility], [address] [place] [address] Referral ID Status Reason Start Date Expiration Date Visits Requested Visits Authorized [id number] Authorized Perform Procedure 09/24/2023 09/23/2024 1 1 Reason Comments Pre-Op Exam Tendon repair right hand on 10/06. Swelling in bita legs. 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] Procedures AR EXCISION DISTAL ULNA PARTIAL/COMPLETE AR TR TDN RESTORE INTRNSC FUNCJ RING&SM FNGR AR SYNOVECTOMY EXTENSOR TENDON SHTH WRIST 1 CMPRT Ulna Distal Ward Procedure, Small + Ring Finger Extensor Tendon Transfer, Extensor Tenosynovectomy Maryam Abdullahi MD [address] [facility], [address] [place] [address] [address] [facility] [place] [address] Referral ID Status Reason Start Date Expiration Date Visits Re quested Visits Authorized [id number] 1 1 Reason Onset Date Comments Population Health Navigation Outreach 10/13/2023 [employer] workbench mina Reason Comments Post-op TS-Reverse DOS: 08/09 /24 - 45 days outXrays today Reason Comments Patient Question Reason Comments Refill Request Reason Onset Date Comments Population Health Navigation Outreach 12/13/2023 [employer] workbench mina Reason Comments 1 year follow up ear cleaning Reason Onset Date Comments Population Health Navigation Outreach 02/24/2024 [employer] workbench mina Reason Onset Date Comments Refill Request 03/02/2024 Reason Comments Post-op Ulna distal ward+s mall finger extensor tendon transfer 10/07/23 Referral ID Status Reason Start Date Expiration Date Visits Requested Visits Authorized [id number] Authorized Perform Procedure 11/12/2023 11/11/2024 1 1 Reason Comments Follow-up TS-ReverseDOS: (13 weeks out)Xrays today Reason Comments Follow-up Ulna distal ward+s mall finger extensor tendon transfer 10/07/23 Specialty Diagnoses / Procedures Referred By Phill yates Referred To Contact Radiology Diagnoses Extensor tendon rupture of hand, right, initial encounter Procedures XR wrist right 3+ views Maryam Abdullahi MD [address] [facility], [address] [place], [place] [id number] Referral ID Status Reason Start Date Expiration Date Visits Requested Visits Authorized [id number] Authorized Perform Procedure 01/03/2024 01/02/2025 1 1 Reason Comments Follow-up TS-everseDOS: 4 (5 months)Xrays today Referral ID Status Reason Start Date Expiration Date Visits Requested Visits Authorized [id number] Authorized Perform Procedure 01/05/2024 01/04/2025 1 1 Reason Onset Date Comments Allied Health Visit 05/29/2024 Medication A dherence Outreach Reason Comments Medicare Wellness Exam Reason Comments Follow-up Patient has no cardi ac concerns today Assessment & Plan Note - Shawna Zhou CNP - 09/07/2018 9:34 AM EDTAssessment & Plan Note - Shawna Zhou CNP - 09/07/2018 9:34 AM EDT Miscellaneous Notes (unrecog nized section and content) Associated Problem(s): Hyperlipidemia Currently on atorvastatin 20 mg daily. Lipids are managed by primary care provider. Associated Problem(s): LV dysfunction with recoverability She has had recoverability of her LV function. No evidence of fluid retention in the office today. [employer] functional class I Associated Problem(s): Hypertension Blood pressure controlled in the office today. We will continue medications Associated Problem(s): Coronary artery disease March 2014 mild plaque disease She is status post an STEMI and left heart cath showed nonobstructive coronary disease. In the office today she is physically active without provocation of symptoms. Continue risk factor reduction with diet and exercise documented in this encounter Associated Problem(s): LV dysfunction with recoverability No evidence of fluid retention in the office today. Denies any significant symptoms. [employer] functional class I Associated Problem(s): Hyperlipidemia Renewed her statin therapy today. We will check lipids when she is fasting 12 hours Associated Problem(s): Hypertension Blood pressure controlled in the office today. Renewed her SUSANA inhibitor so will check a comprehensive metabolic profile when she is fasting. Associated Problem(s): Coronary artery disease March 2014 mild plaque disease She offers no complaints of chest pain, shortness of breath, lightheadedness or palpitations. She is compliant with her medical therapy. Continue risk factor reduction with diet and exercise as well as weight loss documented in this encounter INFORMATION SOURCE (unrecogn ized section and content) DATE CREATED AUTHOR 05/27/2019 [facility] DATE CREATED AUTHOR AUTHOR'S ORGANIZ ATION 01/17/2020 [facility] DATE CREATED AUTHOR AUTHOR'S ORGANIZ ATION 01/23/2020 [facility] DATE CREATED AUTHOR AUTHOR'S ORGANIZ ATION 09/17/2023 [facility] DATE CREATED AUTHOR AUTHOR'S ORGANIZ ATION 11/15/2023 [facility] DATE CREATED AUTHOR AUTHOR'S ORGANIZ ATION 01/20/2024 [facility] DATE CREATED AUTHOR AUTHOR'S ORGANIZ ATION 02/09/2024 [facility] DATE CREATED AUTHOR AUTHOR'S ORGANIZ ATION 06/06/2024 [facility] DATE CREATED AUTHOR AUTHOR'S ORGANIZ ATION 06/11/2024 [facility] DATE CREATED AUTHOR AUTHOR'S ORGANIZ ATION 09/10/2024 [facility] DATE CREATED AUTHOR AUTHOR'S ORGANIZ ATION 09/29/2024 [facility] Care Teams (unrecognized sec tion and content) Airplane Cleaner Relationship Specialty Start Date End Date Trace Mendiola, DO [address] [facility] [address] [place] [address] PCP - General Endocrinology/Metabol ism 08/05/15 Giancarlo Cesar DPM Independent Clinician Podiatry 10/04/15 Airplane Cleaner Relationship Specialty Start Date End Date Trace Mendiola, DO [address] [facility] [address] [place] [address] PCP - General Endocrinology/Metabol ism 08/05/15 Giancarlo Cesar DPM Independent Clinician Podiatry 10/04/15 Airplane Cleaner Relationship Specialty Start Date End Date Trace Mendiola, DO [address] [facility] [address] [place] [address] PCP - General Endocrinology/Metabol ism 08/05/15 Giancarlo Cesar DPM Independent Clinician Podiatry 10/04/15 Airplane Cleaner Relationship Specialty Start Date End Date Trace Mendiola, DO [address] [place] [address] PCP - General Family Medicine 08/01/13 Airplane Cleaner Relationship Specialty Start Date End Date Trace Mendiola, DO [address] [place] [address] PCP - General Family Medicine 08/01/13 Airplane Cleaner Relationship Specialty Start Date End Date Trace Mendiola, DO [address] [place] [address] PCP - General Family Medicine 08/01/13 Airplane Cleaner Relationship Specialty Start Date End Date Trace Mendiola, DO [address] [facility] [address] [place] [address] PCP - General Endocrinology/Metabol ism 08/05/15 Giancarlo Cesar, DPM [address] [facility] [address] [place] [address] Independent Clinician Podiatry 10/04/15 Airplane Cleaner Relationship Specialty Start Date End Date Trace Mendiola, DO [address] [facility] [address] [place] [address] PCP - General Endocrinology/Metabol ism 08/05/15 Giancarlo Cesar, DPM [address] [facility] [address] [place] [address] Independent Clinician Podiatry 10/04/15 Airplane Cleaner Relationship Specialty Start Date End Date Trace Mendiola, DO [address] [place] [address] PCP - General Family Medicine 08/01/13 Airplane Cleaner Relationship Specialty Start Date End Date Trace Mendiola, DO [address] [place] [address] PCP - General Family Medicine 08/01/13 Airplane Cleaner Relationship Specialty Start Date End Date Trace Mendiola DO [address] [place] [address] PCP - General Family Medicine 08/01/13 Airplane Cleaner Relationship Specialty Start Date End Date Trace Mendiola DO [address] [facility] [address] [place] [address] PCP - General Endocrinology/Metabol ism 08/05/15 Giancarlo Cesar DPM [address] [facility] [address] [place] [address] Independent Clinician Podiatry 10/04/15 Airplane Cleaner Relationship Specialty Start Date End Date Trace Mendiola DO [address] [facility] [address] [place] [address] PCP - General Endocrinology/Metabol ism 08/05/15 Giancarlo Cesar DPM [address] [facility] [address] [place] [address] Independent Clinician Podiatry 10/04/15 Airplane Cleaner Relationship Specialty Start Date End Date Trace Mendiola DO [address] [place] [address] PCP - General Family Medicine 08/01/13 Airplane Cleaner Relationship Specialty Start Date End Date Trace Mendiola DO [address] [facility] [address] [place] [address] PCP - General Endocrinology/Metabol ism 08/05/15 Giancarlo Cesar DPM [address] [facility] [address] [place] [address] Independent Clinician Podiatry 10/04/15 Airplane Cleaner Relationship Specialty Start Date End Date Trace Mendiola DO [address] [place] [address] PCP - General Family Medicine 08/01/13 Airplane Cleaner Relationship Specialty Start Date End Date Trace Mendiola DO [address] [place] [address] PCP - General Family Medicine 08/01/13 Airplane Cleaner Relationship Specialty Start Date End Date Trace Mendiola DO [address] [place] [address] PCP - General Family Medicine 08/01/13 Airplane Cleaner Relationship Specialty Start Date End Date Trace Mendiola DO [address] [place] [address] PCP - General Family Medicine 06/07/23 Airplane Cleaner Relationship Specialty Start Date End Date Trace Mendiola DO [address] [place] [address] PCP - General Family Medicine 06/07/23 Airplane Cleaner Relationship Specialty Start Date End Date Trace Mendiola DO [address] [place] [address] PCP - General Family Medicine 06/07/23 Airplane Cleaner Relationship Specialty Start Date End Date Trace Mendiola DO [address] [place] [address] PCP - General Family Medicine 06/07/23 Airplane Cleaner Relationship Specialty Start Date End Date Trace Mendiola DO [address] [place] [address] PCP - General Family Medicine 06/07/23 Airplane Cleaner Relationship Specialty Start Date End Date Trace Mendiola DO [address] [place] [address] PCP - General Family Medicine 06/07/23 Airplane Cleaner Relationship Specialty Start Date End Date Trace Mendiola DO [address] [place] [address] PCP - General Family Medicine 06/07/23 Airplane Cleaner Relationship Specialty Start Date End Date Trace Mendiola DO [address] [place] [address] PCP - General Family Medicine 06/07/23 Airplane Cleaner Relationship Specialty Start Date End Date Trace Mendiola DO [address] [place] [address] PCP - General Family Medicine 06/07/23 Airplane Cleaner Relationship Specialty Start Date End Date Trace Mendiola DO [address] [place] [address] PCP - General Family Medicine 08/01/13 Airplane Cleaner Relationship Specialty Start Date End Date Trace Mendiola DO [address] [facility] [place] [address] PCP - General Family Medicine 08/01/13 Airplane Cleaner Relationship Specialty Start Date End Date Trace Mendiola DO [address] [place] [address] PCP - General Family Medicine 06/07/23 Airplane Cleaner Relationship Specialty Start Date End Date Trace Mendiola DO [address] [facility] [place] [address] PCP - General Family Medicine 08/01/13 Airplane Cleaner Relationship Specialty Start Date End Date Trace Mendiola DO [address] [place] [address] PCP - General Family Medicine 06/07/23 Airplane Cleaner Relationship Specialty Start Date End Date Trace Mendiola DO [address] [place] [address] PCP - General Family Medicine 06/07/23 Airplane Cleaner Relationship Specialty Start Date End Date Trace Mendiola DO [address] [place] [address] PCP - General Family Medicine 06/07/23 Airplane Cleaner Relationship Specialty Start Date End Date Trace Mendiola DO [address] [place] [address] PCP - General Family Medicine 06/07/23 Airplane Cleaner Relationship Specialty Start Date End Date Trace Mendiola DO [address] [place] [address] PCP - General Family Medicine 06/07/23 Airplane Cleaner Relationship Specialty Start Date End Date Trace Mendiola DO [address] [place] [address] PCP - General Family Medicine 06/07/23 Airplane Cleaner Relationship Specialty Start Date End Date Trace Mendiola DO [address] [facility] [place] [address] PCP - General Family Medicine 06/07/23 Airplane Cleaner Relationship Specialty Start Date End Date Trace Mendiola DO [address] [place] [address] PCP - General Family Medicine 06/07/23 Airplane Cleaner Relationship Specialty Start Date End Date Trace Mendiola DO [address] [facility] [place] [address] PCP - General Family Medicine 06/07/23 Airplane Cleaner Relationship Specialty Start Date End Date Trace Mendiola DO [address] [facility] [place] [address] PCP - General Family Medicine 08/01/13 Airplane Cleaner Relationship Specialty Start Date End Date Trace Mendiola DO [address] [facility] [place] [address] PCP - General Family Medicine 08/01/13 Airplane Cleaner Relationship Specialty Start Date End Date Trace Mendiola DO [address] [facility] [place] [address] PCP - General Family Medicine 06/07/23 Airplane Cleaner Relationship Specialty Start Date End Date Trace Mendiola DO [address] [facility] [place] [address] PCP - General Family Medicine 06/07/23 Airplane Cleaner Relationship Specialty Start Date End Date Trace Mendiola DO [address] [facility] [place] [address] PCP - General Family Medicine 08/01/13 Airplane Cleaner Relationship Specialty Start Date End Date Trace Mendiola DO [address] [facility] [place] [address] PCP - General Family Medicine 08/01/13 Airplane Cleaner Relationship Specialty Start Date End Date Trace Mendiola DO [address] [facility] [place] [address] PCP - General Family Medicine 08/01/13 Airplane Cleaner Relationship Specialty Start Date End Date Trace Mendiola DO [address] [place] [address] PCP - General Endocrinology/Metabol ism 08/05/15 Giancarlo Cesar DPM [address] [place] [address] Independent Clinician Podiatry 10/04/15 Airplane Cleaner Relationship Specialty Start Date End Date Trace Mendiola DO [address] [facility] [place] [address] PCP - General Family Medicine 06/07/23 Airplane Cleaner Relationship Specialty Start Date End Date Trace Mendiola DO [address] [facility] [place] [address] PCP - General Family Medicine 06/07/23 Airplane Cleaner Relationship Specialty Start Date End Date Trace Mendiola DO [address] [facility] [place] [address] PCP - General Family Medicine 06/07/23 Airplane Cleaner Relationship Specialty Start Date End Date Trace Mendiola DO [address] [facility] [place] [address] PCP - General Family Medicine 06/07/23 Airplane Cleaner Relationship Specialty Start Date End Date Trace Mendiola DO [address] [place] [address] PCP - General Family Medicine 06/07/23 Airplane Cleaner Relationship Specialty Start Date End Date Trace Mendiola DO [address] [facility] [place] [address] PCP - General Family Medicine 08/01/13 Kaylen Best, SNOUT PULLER.VEGETABLE PREPARER [address] [place] [address] Aerospace Project Engineer Family Medicine 04/02/24 Chyna Grimm, SNOUT PULLER.VEGETABLE PREPARER [address] [place] [address] Aerospace Project Engineer Family Medicine 04/02/24 Airplane Cleaner Relationship Specialty Start Date End Date Trace Mendiola DO [address] [facility] [place] [address] PCP - General Family Medicine 08/01/13 Kaylen Best, SNOUT PULLER.VEGETABLE PREPARER [address] [place] [address] Aerospace Project Engineer Family Medicine 04/02/24 Chyna Grimm, SNOUT PULLER.VEGETABLE PREPARER [address] [place] [address] Aerospace Project Engineer Family Medicine 04/02/24 Airplane Cleaner Relationship Specialty Start Date End Date Trace Mendiola DO [address] [facility] [place] [address] PCP - General Family Medicine 08/01/13 Kaylen Best, VICKY.VEGETABLE PREPARER [address] [place], [place] [address] Aerospace Project Engineer Family Medicine 04/02/24 Chyna Grimm APRN.VEGETABLE PREPARER [address] [place], [place] [address] Aerospace Project Engineer Family [facility] 04/02/24 Airplane Cleaner Relationship Specialty Start Date End Date Trace Mendiola DO [address] [place], [place] [address] PCP - General Family Medicine 06/07/23 Airplane Cleaner Relationship Specialty Start Date End Date Trace Mendiola DO [address] [place], [place] [address] PCP - General Family Medicine 06/07/23 Airplane Cleaner Relationship Specialty Start Date End Date Trace Mendiola DO [address] [facility] [address] [place], [place] [address] PCP - General Endocrinology/Metabol ism 08/05/15 Giancarlo Cesar DPM [address] [facility] [address] [place] [address] Independent Clinician Podiatry 10/04/15 Source Comments (unrecognize d section and content) In the event this informatio n is protected by the Federal Confidentiality of Alcohol and Drug Abuse Patient Records regulations: The Federal rules restrict any use of the information to criminally investigate or prosecute any alcohol or drug abuse patient.[facility] Hospital[facility] the event this information is protected by the Federal Confidentiality of Alcohol and Drug Abuse Patient Records regulations: The Federal rules restrict any use of the information to criminally investigate or prosecute any alcohol or drug abuse patient.[facility] HospitalIn the event this information is protected by the Federal Confidentiality of Alcohol and Drug Abuse Patient Records regulations: The Federal rules restrict any use of the information to criminally investigate or prosecute any alcohol or drug abuse patient.[facility] HospitalIn the event this information is protected by the Federal Confidentiality of Alcohol and Drug Abuse Patient Records regulations: The Federal rules restrict any use of the information to criminally investigate or prosecute any alcohol or drug abuse patient.[facility] HospitalIn the event this information is protected by the Federal Confidentiality of Alcohol and Drug Abuse Patient Records regulations: The Federal rules restrict any use of the information to criminally investigate or prosecute any alcohol or drug abuse patient.[facility] HospitalIn the event this information is protected by the Federal Confidentiality of Alcohol and Drug Abuse Patient Records regulations: The Federal rules restrict any use of the information to criminally investigate or prosecute any alcohol or drug abuse patient.[facility] HospitalIn the event this information is protected by the Federal Confidentiality of Alcohol and Drug Abuse Patient Records regulations: The Federal rules restrict any use of the information to criminally investigate or prosecute any alcohol or drug abuse patient.[facility] HospitalIn the event this information is protected by the Federal Confidentiality of Alcohol and Drug Abuse Patient Records regulations: The Federal rules restrict any use of the information to criminally investigate or prosecute any alcohol or drug abuse patient.[facility] HospitalIn the event this information is protected by the Federal Confidentiality of Alcohol and Drug Abuse Patient Records regulations: The Federal rules restrict any use of the information to criminally investigate or prosecute any alcohol or drug abuse patient.[facility] HospitalIn the event this information is protected by the Federal Confidentiality of Alcohol and Drug Abuse Patient Records regulations: The Federal rules restrict any use of the information to criminally investigate or prosecute any alcohol or drug abuse patient.[facility] HospitalIn the event this information is protected by the Federal Confidentiality of Alcohol and Drug Abuse Patient Records regulations: The Federal rules restrict any use of the information to criminally investigate or prosecute any alcohol or drug abuse patient.[facility] HospitalIn the event this information is protected by the Federal Confidentiality of Alcohol and Drug Abuse Patient Records regulations: The Federal rules restrict any use of the information to criminally investigate or prosecute any alcohol or drug abuse patient.[facility] HospitalIn the event this information is protected by the Federal Confidentiality of Alcohol and Drug Abuse Patient Records regulations: The Federal rules restrict any use of the information to criminally investigate or prosecute any alcohol or drug abuse patient.[facility] HospitalIn the event this information is protected by the Federal Confidentiality of Alcohol and Drug Abuse Patient Records regulations: The Federal rules restrict any use of the information to criminally investigate or prosecute any alcohol or drug abuse patient.[facility] HospitalIn the event this information is protected by the Federal Confidentiality of Alcohol and Drug Abuse Patient Records regulations: The Federal rules restrict any use of the information to criminally investigate or prosecute any alcohol or drug abuse patient.[facility] HospitalIn the event this information is protected by the Federal Confidentiality of Alcohol and Drug Abuse Patient Records regulations: The Federal rules restrict any use of the information to criminally investigate or prosecute any alcohol or drug abuse patient.[facility] HospitalIn the event this information is protected by the Federal Confidentiality of Alcohol and Drug Abuse Patient Records regulations: The Federal rules restrict any use of the information to criminally investigate or prosecute any alcohol or drug abuse patient.[facility] HospitalIn the event this information is protected by the Federal Confidentiality of Alcohol and Drug Abuse Patient Records regulations: The Federal rules restrict any use of the information to criminally investigate or prosecute any alcohol or drug abuse patient.[facility] HospitalIn the event this information is protected by the Federal Confidentiality of Alcohol and Drug Abuse Patient Records regulations: The Federal rules restrict any use of the information to criminally investigate or prosecute any alcohol or drug abuse patient.[facility] HospitalIn the event this information is protected by the Federal Confidentiality of Alcohol and Drug Abuse Patient Records regulations: The Federal rules restrict any use of the information to criminally investigate or prosecute any alcohol or drug abuse patient.[facility] HospitalIn the event this information is protected by the Federal Confidentiality of Alcohol and Drug Abuse Patient Records regulations: The Federal rules restrict any use of the information to criminally investigate or prosecute any alcohol or drug abuse patient.[facility] HospitalIn the event this information is protected by the Federal Confidentiality of Alcohol and Drug Abuse Patient Records regulations: The Federal rules restrict any use of the information to criminally investigate or prosecute any alcohol or drug abuse patient.[facility] HospitalIn the event this information is protected by the Federal Confidentiality of Alcohol and Drug Abuse Patient Records regulations: The Federal rules restrict any use of the information to criminally investigate or prosecute any alcohol or drug abuse patient.[facility] HospitalIn the event this information is protected by the Federal Confidentiality of Alcohol and Drug Abuse Patient Records regulations: The Federal rules restrict any use of the information to criminally investigate or prosecute any alcohol or drug abuse patient.[facility] HospitalIn the event this information is protected by the Federal Confidentiality of Alcohol and Drug Abuse Patient Records regulations: The Federal rules restrict any use of the information to criminally investigate or prosecute any alcohol or drug abuse patient.[facility] HospitalIn the event this information is protected by the Federal Confidentiality of Alcohol and Drug Abuse Patient Records regulations: The Federal rules restrict any use of the information to criminally investigate or prosecute any alcohol or drug abuse patient.[facility] HospitalIn the event this information is protected by the Federal Confidentiality of Alcohol and Drug Abuse Patient Records regulations: The Federal rules restrict any use of the information to criminally investigate or prosecute any alcohol or drug abuse patient.[facility] HospitalIn the event this information is protected by the Federal Confidentiality of Alcohol and Drug Abuse Patient Records regulations: The Federal rules restrict any use of the information to criminally investigate or prosecute any alcohol or drug abuse patient.[facility] HospitalIn the event this information is protected by the Federal Confidentiality of Alcohol and Drug Abuse Patient Records regulations: The Federal rules restrict any use of the information to criminally investigate or prosecute any alcohol or drug abuse patient.[facility] Scheduled Active and Recently Administ ered Medications (unrecognized section and content) Medication Order 08/09/2023 08/10/2023 08/11/2023 acetaminophen (Tylenol) tablet 650 mg 650 mg, oral, Every 6 hours scheduled, First dose on Wed08/10/23 at 1800, Phase II/On Unit, If ordered PRN for pain, nurse is permitted to administer this medication for higher pain scores based on patient preference? Yes 1808 (Given - Provider: Edwige Jones RN)2330 (Given - Provider: Kaela Soler RN) 0600 (Not Given - Provider: Kaela Soler RN - Reason: Patient/family refused)1155 (Given - Provider: Edwige Jones RN)1800 (Due) acetaminophen (Tylenol) tablet 975 mg (COMPLETED) 975 mg, oral, Once, On Wed08/10/23 at 0845, For 1 dose, Preprocedure, If ordered PRN for pain, nurse is permitted to administer this medication for higher pain scores based on patient preference? Yes 0910 (Given - Provider: Arlin Garcia RN) aspirin EC tablet 81 mg 81 mg, oral, Daily, First dose on Wed08/10/23 at 1930, Do not crush, chew, or split. 1940 (Given - Provider: Kaela Soler RN) 0819 (Given - Provider: Edwige Jones RN) atorvastatin (Lipitor) tablet 20 mg 20 mg, oral, Nightly, First dose on Wed08/10/23 at 2100 2037 (Given - Provider: Kaela Soler RN) 2099 (Due) carvedilol (Coreg) tablet 3.125 mg 3.125 mg, oral, 2 times daily with meals, First dose on Wed08/11/23 at 0800 0819 (Given - Provid er: Edwige Jones RN)1700 (Due) ceFAZolin in dextrose (iso-os) (Ancef) IVPB 2 g (COMPLETED) 2 g, intravenous, Administer over 30 Minutes, Once, On Wed08/10/23 at 0845, For 1 dose, Intraprocedure, Administer within 60 minutes prior to incision. premix bag, Dosing of this medication varies based on severity of illness. Does this patient have sepsis or concern for sepsis (probable or documented infection plus systemic manifestations of infection)? No, Suspected Indication (Select all that apply): Surgical Prophylaxis 1230 (Given - Provider: GLENNY Dockery)1500 (Anesthesia Volume Adjustment - Provider: GLENNY Dockery) ceFAZolin in dextrose (iso-os) (Ancef) IVPB 2 g (COMPLETED) 2 g, intravenous, Administer over 30 Minutes, Every 8 hours, First dose on Wed08/10/23 at 2030, For 2 doses, Phase II/On Unit, Start 8 hours after pre-op dose given. premix bag, Dosing of this medication varies based on severity of illness. Does this patient have sepsis or concern for sepsis (probable or documented infection plus systemic manifestations of infection)? No, Suspected Indication (Select all that apply): Surgical Prophylaxis 194 (New Bag - Provider: Kaela Soler RN)2010 (Stopped - Provider: Kaela Soler RN) 329 (New Bag - Provider: Kaela Soler RN)040 (Stopped - Provider: Kaela Soler RN) celecoxib (CeleBREX) capsule 400 mg (COMPLETED) 400 mg, oral, Once, On Wed08/10/23 at 0845, For 1 dose, Preprocedure, Capsules may be opened and sprinkled on a spoonful of cold or room temperature applesauce. 0910 (Given - Provider: Arlin Garcia RN) docusate sodium (Colace) capsule 100 mg 100 mg, oral, 2 times daily, First dose on Wed08/10/23 at 2100, Phase II/On Unit, Bowel Regimen - for prevention of constipation Hold for loose stools 2037 (Given - Provider: Kaela Soler RN) 08 (Given - Provider: Edwige Jones RN)2100 (Due) enalapril (Vasotec) tablet 2.5 mg 2.5 mg, oral, Daily RT, First dose on Wed08/11/23 at 0700 0624 (Given - Provid er: Kaela Soler RN) gabapentin (Neurontin) capsule 600 mg (COMPLETED) 600 mg, oral, Once, On Wed08/10/23 at 0845, For 1 dose, Preprocedure, Capsules may be opened and sprinkled on food (eg, applesauce, orange juice, pudding 09 (Given - Provider: Arlin Garcia RN) pantoprazole (ProtoNix) EC tablet 20 mg 20 mg, oral, Daily before breakfast, First dose on Wed08/12/23 at 0600, Do not crush, chew, or split. povidone-iodine 5 % kit kit 1 Application (COMPLETED) 1 Application (1 kit), Topical, Once, On Wed08/10/23 at 0900, For 1 dose, Preprocedure 0911 (Given - Provider: Arlin Garcia RN) tranexamic acid (Lysteda) tablet 1,950 mg (COMPLETED) 1,950 mg, oral, Once, On Wed08/10/23 at 0845, For 1 dose, Preprocedure, Do not crush, chew, or split. 0910 (Given - Provider: Arlin Garcia RN) tranexamic acid (Lysteda) tablet 1,950 mg (COMPLETED) 1,950 mg, oral, Once, On Wed08/10/23 at 2100, For 1 dose, Recovery & On Unit, First dose administered 6 hours post procedure. Do not crush, chew, or split., Tranexamic Acid Indication: Surgical Prophylaxis: Orthopedic 2036 (Given - Provider: Kaela Soler RN) tranexamic acid (Lysteda) tablet 1,950 mg (COMPLETED) 1,950 mg, oral, Once, On Wed08/11/23 at 0600, For 1 dose, Phase II/On Unit, Second dose administered post-op day 1 at 0600. Do not crush, chew, or split., Tranexamic Acid Indication: Surgical Prophylaxis: Orthopedic 0623 (Given - Provid er: Kaela Soler RN) Continuous Medication Order 08/09/2023 08/10/2023 08/11/2023 lactated Ringer's infusion 100 mL/hr, intravenous, Continuous, Starting on Wed08/10/23 at 0845 0910 (New Bag - Provider: Arlin Garcia RN)1210 (Continued by Anesthesia - Provider: GLENNY Dockery)1410 (New Bag - Provider: GLENNY Dockery)1437 (Stopped - Provider: GLENNY Dockery)1500 (Anesthesia Volume Adjustment - Provider: GLENNY Dockery) lactated Ringer's infusion 50 mL/hr, intravenous, Continuous, Starting on Wed08/10/23 at 1645, Phase II/On Unit 1634 (New Bag - Provider: Edwige Jones RN) 0824 (Stopped - Provider: Edwige Jones RN) PRN Medication Order 08/09/2023 08/10/2023 08/11/2023 bisacodyl (Dulcolax) EC tablet 10 mg 10 mg, oral, Daily PRN, constipation, first line, Starting on Wed08/10/23 at 1617, Phase II/On Unit, 1st line for treatment of constipation - contact provider if no bowel movement in past 48 hours. Do not crush, chew, or split. cyclobenzaprine (Flexeril) tablet 10 mg 10 mg, oral, 3 times daily PRN, muscle spasms, Starting on Wed08/10/23 at 1617, Phase II/On Unit, Indications: muscle spasm HYDROmorphone (Dilaudid) injection 0.5 mg 0.5 mg, intravenous, Every 4 hours PRN, pain severe (7-10), second line, Starting on Wed08/10/23 at 1617, Phase II/On Unit morphine injection 2 mg 2 mg, intravenous, Every 2 hour PRN, pain breakthrough, Starting on Wed08/10/23 at 1617, Phase II/On Unit naloxone (Narcan) injection 0.2 mg 0.2 mg, intravenous, Every 5 min PRN, respiratory depression, Starting on Wed08/10/23 at 1617, Phase II/On Unit, If respiratory rate is less than 8 breaths/minute or patient is difficult to arouse stop any narcotics and contact physician. Administer slow IV push. Repeat as ordered until patient's respiratory rate is greater than 12 breaths/minute. ondansetron (Zofran) injection 4 mg(Linked Group 1) 4 mg, intravenous, Every 8 hours PRN, nausea/vomiting, first line, Starting on Wed08/10/23 at 1617, Phase II/On Unit, 1st Line. Give IV if patient is unable to take orally. If inadequate response within 60 minutes, proceed to next-line agent for same PRN reason or contact provider if no further options ordered. When administering via IV Push, administer over 3-5 minutes. 1152 (See Alternativ e - Provider: Edwige Jones RN) ondansetron (Zofran) tablet 4 mg(Linked Group 1) 4 mg, oral, Every 8 hours PRN, nausea/vomiting, first line, Starting on Wed08/10/23 at 1617, Phase II/On Unit, 1st Line. Use oral route first, if possible. If inadequate response within 60 minutes, proceed to next-line agent for same PRN reason or contact provider if no further options ordered. 1152 (Not Given - Provider: Edwige Jones RN - Reason: Patient/family refused) oxyCODONE (Roxicodone) immediate release tablet 10 mg 10 mg, oral, Every 4 hours PRN, pain moderate (4-6), first line, Starting on Wed08/10/23 at 1617, Phase II/On Unit, If ordered PRN for pain, nurse is permitted to administer this medication for higher pain scores based on patient preference? Yes 7384 (Given - Provid er: Kaela Soler RN) oxyCODONE (Roxicodone) immediate release tablet 5 mg 5 mg, oral, Every 4 hours PRN, pain mild (1-3), first line, Starting on Wed08/10/23 at 1617, Phase II/On Unit, If ordered PRN for pain, nurse is permitted to administer this medication for higher pain scores based on patient preference? Yes prochlorperazine (Compazine) injection 10 mg(Linked Group 2) 10 mg, intravenous, Every 6 hours PRN, nausea/vomiting, second line, Starting on Wed08/10/23 at 1617, Phase II/On Unit, Give IV if patient is unable to take orally. prochlorperazine (Compazine) suppository 25 mg(Linked Group 2) 25 mg, rectal, Every 12 hours PRN, nausea/vomiting, second line, Starting on Wed08/10/23 at 1617, Phase II/On Unit, 2nd Line. Give AR if patient is unable to take orally or receive by injection. If inadequate response within 60 minutes, proceed to next-line agent for same PRN reason or contact provider if no further options ordered. prochlorperazine (Compazine) tablet 10 mg(Linked Group 2) 10 mg, oral, Every 6 hours PRN, nausea/vomiting, second line, Starting on Wed08/10/23 at 1617, Phase II/On Unit, 2nd Line. If inadequate response within 60 minutes, proceed to next-line agent for same PRN reason or contact provider if no further options ordered. promethazine (Phenergan) 6.25 mg in sodium chloride 0.9% 50 mL IV 6.25 mg, intravenous, Administer over 15 Minutes, Once as needed, Nausea/vomiting, second line, Starting on Wed08/10/23 at 1617, For 1 dose, Phase II/On Unit sodium chloride 0.9 % irrigation solution (CANCELED) As needed, Starting on Wed08/10/23 at 1318, Intraprocedure 1318 (Given - Provider: Indira Levy MD) vancomycin (Vancocin) vial for injection (CANCELED) As needed, Starting on Wed08/10/23 at 1318, Intraprocedure 1318 (Given - Provider: Indira Levy MD - Comment: topical) Linked Groups Order Group 1: ondansetron (Zofran) tablet 4 mgJump to med 4 mg, oral, Every 8 hours PRN, nausea/vomiting, first line, Starting on Wed08/10/23 at 1617, Phase II/On Unit, 1st Line. Use oral route first, if possible. If inadequate response within 60 minutes, proceed to next-line agent for same PRN reason or contact provider if no further options ordered. Or ondansetron (Zofran) injection 4 mgJump to med 4 mg, intravenous, Every 8 hours PRN, nausea/vomiting, first line, Starting on 08/10/23 at 1617, Phase II/On Unit, 1st Line. Give IV if patient is unable to take orally. If inadequate response within 60 minutes, proceed to next-line agent for same PRN reason or contact provider if no further options ordered. When administering via IV Push, administer over 3-5 minutes. Group 2: prochlorperazine (Compazine) tablet 10 mgJump to med 10 mg, oral, Every 6 hours PRN, nausea/vomiting, second line, Starting on 08/10/23 at 1617, Phase II/On Unit, 2nd Line. If inadequate response within 60 minutes, proceed to next-line agent for same PRN reason or contact provider if no further options ordered. Or prochlorperazine (Compazine) injection 10 mgJump to med 10 mg, intravenous, Every 6 hours PRN, nausea/vomiting, second line, Starting on 08/10/23 at 1617, Phase II/On Unit, Give IV if patient is unable to take orally. Or prochlorperazine (Compazine) suppository 25 mgJump to med 25 mg, rectal, Every 12 hours PRN, nausea/vomiting, second line, Starting on 08/10/23 at 1617, Phase II/On Unit, 2nd Line. Give AR if patient is unable to take orally or receive by injection. If inadequate response within 60 minutes, proceed to next-line agent for same PRN reason or contact provider if no further options ordered. Scheduled Medication Order 10/05/2023 10/06/2023 10/07/2023 ceFAZolin in dextrose (iso-os) (Ancef) IVPB 2 g (COMPLETED) 2 g, intravenous, Administer over 30 Minutes, Once, On [place] 10/07/23 at 0845, For 1 dose, Intraprocedure, Administer within 60 minutes prior to incision. premix bag, Dosing of this medication varies based on severity of illness. Does this patient have sepsis or concern for sepsis (probable or documented infection plus systemic manifestations of infection)? No, Suspected Indication (Select all that apply): Surgical Prophylaxis, Indications: Surgical Prophylaxis 1045 (Given - Provid er: Sinai Alcantar, SNOUT PULLER-SISAL PICKER) dexAMETHasone (PF) (Decadron) 5 mg, ropivacaine (Naropin) 5 mg/mL (0.5 %) 100 mg injection injection, Once, On [place] 10/07/23 at 0845, For 1 dose, Intraprocedure 0845 (Due) Continuous Medication Order 10/05/2023 10/06/2023 10/07/2023 lactated Ringer's infusion 100 mL/hr, intravenous, Continuous, Starting on [place] 10/07/23 at 0845, Preprocedure 0913 (New Bag - Prov ider: Heydi Alex RN) PRN Medication Order 10/05/2023 10/06/2023 10/07/2023 sodium chloride 0.9 % irrigation solution (CANCELED) As needed, Starting on [place] 10/07/23 at 1111, Intraprocedure 1111 (Given - Provid er: Maryam Lugo MD) FOR RECORDS PERTAINING TO PATIENTS WHO ARE OR HAVE BEEN ENROLLED IN A CHEMICAL DEPENDENCY/SUBSTANCEABUSE PROGRAM, SOME INFORMATION MAY BE OMITTED. This clinical summary was aggregated from multiple sources. Caution should be exercised in using it in the provision of clinical care. This summary normalizes information from multiple sources, and as a consequence, information in this document may materially change the coding, format and clinical context of patient data. In addition, data may be omitted in some cases. CLINICAL DECISIONS SHOULD BE BASED ON THE PRIMARY CLINICAL RECORDS. [email or web address] provides no warranty or guarantee of the accuracy or completeness of information in this document.
== END | disposition home or self-care (01) ==
LOC: MTLAB 10:29
PROVIDERS: PCP Student in an Organized Health Care Education/Training Program; Referring Provider Internal Medicine Rheumatology; Visit Provider Internal Medicine Rheumatology
DX: M17.0 Bilateral primary osteoarthritis of knee (principal); M05.79 Rheumatoid arthritis with rheumatoid factor of multiple sites without organ or systems involvement; M79.7 Fibromyalgia; M35.00 Sjogren syndrome, unspecified; Z79.899 Other long term (current) drug therapy
CPT/HCPCS: 36415; 80053; 85025

== ENCOUNTER → 2024-12-26 | Outpatient (CLI) | payer MEDICARE, SELFPAY ==
[2024-12-26 18:13] LABS: Hematocrit 37.0 % (37-47); Hemoglobin 12.2 g/dL (12.0-15.0); Immature Granulocytes Count 0.020 X10^3/uL (0.0-0.0); Mean Corp Hgb Conc 33.0 g/dL (32-36); Mean Corpuscular Volume 100.3 fL (81-99); Mean Platelet Vol. 9.9 fl (6.2-12.0); NRBC Flagged by Analyzer 0 % (0-5); Platelet Count 229 K/mm3 (150-450); RBC Distribution Width CV 13.6 % (11.6-14.6); RBC Distribution Width SD 50.5 fl (35.1-43.9); Red Blood Count 3.69 M/mm3 (4.2-5.4); White Blood Count 6.1 K/mm3 (4.4-11.0)
[2024-12-26 19:49] LABS: AST(SGOT) 22 U/L (<=31); Alanine Aminotransfer ALT/SGPT 14 U/L (<=34); Albumin, Serum 4.0 g/dL (3.4-4.8); Alkaline Phosphatase 113 U/L (35-104); Anion Gap 14 (5-15); BUN 18 mg/dL (4-19); BUN/Creat Ratio 16.8 RATIO (10-20); Calcium,Total 9.7 mg/dL (7.6-11.0); Carbon Dioxide 21.8 mmol/L (21.0-32.0); Chloride 98 mmol/L (98-108); Globulin 2.8 g/dL (2.2-4.2); Glucose 103 mg/dL (70-99); Potassium 4.5 mmol/L (3.3-5.1)
--- OUTSIDE RECORDS SUMMARY | 2024-12-26 23:30 | XMS RPT_ITS | CCD ---
Author Organization [facility] Care Team Providers Care First Aid Attendant Name Role Phone Trace Mendiola Unavailable Giancarlo Cesar Unavailable SHAWNA ZHOU Admitting Unavailable [...] Attending Unavailable TRACE MENDIOLA Primary Care Unavailable TRACE MENDIOLA Primary Care Unavailable LEB, SAM B Referring Unavailable MENDIOLA, TRACE L Primary Care Unavailable LEBSAM B Referring Unavailable MENDIOLA, TRACE L Primary Care Unavailable LEBSAM B Referring Unavailable MENDIOLA, TRACE L Primary [...] Primary Care Unavailable RODOLFO CASSIDY Attending Unavailable INDIRA LEVY Referring Unavailable MENDIOLA, TRACE L Primary Care [...] Primary Care Unavailable RODOLFO CASSIDY Attending Unavailable OHLIGER, INDIRA E Referring Unavailable MENDIOLA, TRACE L Primary Care Unavailable Best CAT OPERATOR.RACKMAN, Kaylen Mc Unavailable [facility] CAT OPERATOR.RACKMAN, Chyna Unavailable OHLIGER, INDIRA E Attending Unavailable MENDIOLA, TRACE L Primary Care Unavailable OHLIGER, INDIRA E Referring Unavailable MENDIOLA, TRACE L Primary Care Unavailable SCOUT OROZCO Attending Unavailable MENDIOLA, TRACE L Primary Care Unavailable OHLIGER UPPERMAN, MARYAM E Referring Unavail able OHLIGER, INDIRA E Referring Unavailable MENDIOLA, TRACE L Primary Care Unavailable OHLIGER MARYAM LUGO E Attending Unavail able MENDIOLA, TRACE L Primary Care Unavailable OHLIGER NORA LUGOIN E Referring Unavail able MENDIOLA, TRACE L Primary Care Unavailable OHLIGER, INDIRA E Attending Unavailable MENDIOLA, TRACE L Primary Care Unavailable OHLIGER, INDIRA E Referring Unavailable MENDIOLA, TRACE L Primary Care Unavailable OHLIGER, INDIRA E Attending Unavailable MENDIOLA, TRACE L Primary Care Unavailable OHLIGER, INDIRA E Referring Unavailable MENDIOLA, TRACE L Primary Care Unavailable OHLIGER UPPERMARYAM PEREZ E Attending Unavail able MENDIOLA, TRACE L Primary Care Unavailable OHLIGER UPPERNORA PEREZIN E Referring Unavail able MENDIOLA, TRACE L Primary Care Unavailable MENDIOLA, TRACE L Primary Care Unavailable CANDICE KIRAN Attending Unavailable MONICA PORTER Attending Unavailable MENDIOLA, TRACE L Primary Care Unavailable CANDICE KIRAN Attending Unavailable MENDIOLA, TRACE L Primary Care Unavailable KEVIN LACEY Attending Unavailable MENDIOLA, TRACE L Primary Care Unavailable MendiolaDr. Trace brady DO Primary Care Provider Dr. Love Gunter MD Attending Provider Lyric BOGGS, Dr. Aleman Referring Provider Love Gunter Referring Unavailable Love Gunter Attending Unavailable Mendiola, Trace Primary Care Unavailable Vellanki, Love Referring Unavailable Love Gunter Attending Unavailable Trace Mendiola Primary Care Unavailable Love Gunter Attending Unavailable Trace Mendiola Primary Care Unavailable Lyric, Love Referring Unavailable Lyric, Love Referring Unavailable Trace Mendiola Primary Care Unavailable Lyric, Love Attending Unavailable TRACE MENDIOLA Primary Care Unavailable OHLIGER UPPERMAN, MARYAM Attending Unavailab le CAM LUGO, MARYAM Referring Unavailab le MENDIOLATRACE BRADY Primary Care Unavailable SYSTEM, PROVIDER NOT IN Attending Unavaila ble OHLIGER UPPERMAN, MARYAM Referring Unavailab le OHLIGER UPPERMAN, MARYAM Attending Unavailab le CAM LUGO, MARYAM Referring Unavailab le MAURY TRACE [place] Primary Care Unavailable Walter PERRY.Lyndsey DUPONT Unavailable [phone] TRACE MENDIOLA Primary Care Unavailable KAYLEN BEST Attending UnavailLYNDSEY Velazco Attending Unavailable TRACE MENDIOLA Primary Care Unavailable LYNDSEY NEUMANN Referring Unavailable TRACE MENDIOLA Primary Care Unavailable Medications Current Medications Medication [...] Take 500 mg by mouth once daily. Active Comment on above: Take 500 mg [...] tablet (20 sources) HMG-CoA Reductase Inhibitor Start: 11-09-19 25 atorvastatin (LIPITOR) 20 MG tablet Indications: Mixed hyperlipidemia TAKE 1 TABLET EVERY DAY 90 tablet 3 11/08/2024 Active Start: 01-21-2024 End: 11-08-2024 atorvastatin (LIPITOR) 20 MG tablet Indications: Mixed hyperlipidemia TAKE 1 TABLET EVERY DAY 90 tablet 3 01/21/2024 11/08/2024 Discontinued Start: 11-17-2022 atorvastatin ( LIPITOR) 20 MG tablet Indications: Mixed hyperlipidemia TAKE 1 TABLET EVERY DAY 90 tablet 3 11/17/2022 Active Start: 03-18-2020 End: 10-01-2021 take 1 tablet by mouth once daily atorvastatin (LIPITO R) 20 MG tablet Indications: Mixed hyperlipidemia Take 1 (one) tablet (20 mg total) by mouth daily . 90 tablet 3 10/01/2021 Active Start: 05-17-2019 take 1 tablet by mouth once da luis f atorvastatin (LIPITOR) 20 MG tablet Indications: Mixed hyperlipidemia Take 1 (one) tablet (20 mg total) by mouth daily . 90 tablet 3 05/17/2019 Active Start: 06-14-2014 End: 05-17-2019 take 1 tablet by mouth once daily for hyperlipidemia atorvastatin (LIPITOR) 20 mg tablet Take 1 tablet by mouth once daily. For cholesterol. 06/14/2014 Active Comment on above: Take 1 tablet by [facility] once daily. For cholesterol. bisacodyl 5 mg [...] oral tablet (20 sources) alpha-Adrenergic Boyd, beta-Adrenergic Body Start: 11-08-2024 carvediloL (CORE G) 3.125 MG tablet Indications: Essential hypertension with goal blood pressure less than 130/80 TAKE 1 TABLET TWICE DAILY WITH MEALS 180 tablet 3 11/08/2024 Active Start: 01-21-2024 End: 11-08-2024 carvediloL (COREG) 3.125 MG tablet Indications: Essential hypertension with goal blood pressure less than 130/80 TAKE 1 TABLET TWICE DAILY WITH MEALS 180 tablet 3 01/21/2024 11/08/2024 Discontinued Start: 11-17-2022 carvediloL (CO REG) 3.125 MG [...] 1 tablet by mouth twice daily carvedilol (COREG) 3.125 mg tablet Take 1 [...] capsule by mouth twice daily docusate sodium (STOOL SOFTENER) 100 mg capsule Take 1 capsule by mouth twice daily. 120 capsule 3 01/03/2019 Active Start: 09-07-2018 End: 09-17-2018 take 1 capsule by mouth twice daily docusate sodium (COLACE) 100 MG capsule Take 1 (one) capsule (100 mg total) by mouth 2 (two) times a day for 10 days . 10 capsule 0 09/07/2018 09/17/2018 Active take 2 capsules by [facility] once daily docusate sodium (Colace) 100 mg capsule Take 2 capsules (200 mg) by mouth once daily. Active Comment on above: Take 1 capsule by [facility] twice daily. enalapril maleate 2.5 mg oral tablet (20 sources) Angiotensin Converting Enzyme Inhibitor Start: 08-11-2023 take 2.5 mg by mouth once daily 2.5 mg, oral, Daily RT, First dose on Wed08/11/23 at 0700 Start: 06-14-2014 End: 09-03-2023 take 1 tablet by mouth once daily enalapril (VASOTEC) 2.5 mg tablet Take 2.5 mg by mouth once daily. 06/14/2014 Active Start: 06-14-2014 take 1 tablet by say twice daily enalapril (VASOTEC) 2.5 mg tablet Take 1 tablet by mouth twice daily. 0 06/14/2014 Active Comment on above: Take 1 tablet by say twice daily. Take 2.5 mg by mouth once daily. ferrous sulfate 325 mg oral tablet (2 sources) Start: take 1 tablet by mouth two times weekly ferrous sulfate 325 mg (65 mg iron) tablet Indications: Iron deficiency anemia, unspecified iron deficiency anemia type Take 1 tablet by mouth two times a week. 12/08/2024 Active fexofenadine (20 sources) Histamine-1 Receptor Antagonist take [...] 11-10-2017 take 1 tablet by mouth once daily as needed, then take 1 tablet by mouth every twenty-four hours as needed Fexofenadine-Pseudoephedrine (ELSIE-D 24 HOUR) 180-240 mg per 24 hr tablet Take 1 tablet by mouth once daily as needed (sinus/cold symptoms). 30 tablet 3 11/10/2017 Active Start: 11-10-2017 take 1 tablet by say th once fexofenadine-pseudoePHEDrine (ELSIE-D 24) 180-240 mg per 24 hr tablet Take 1 (one) tablet by mouth once . 11/10/2017 Active take 1 tablet by say [...] symptoms). folic acid 1 mg oral tablet (5 sources) Start: 12-08-2024 take 1 tablet by mouth once daily folic acid 1 mg tablet Indications: Elevated antinuclear antibody (NOEMY) level , Elevated rheumatoid factor Take 1 tablet by mouth once daily. 12/08/2024 Active Start: 02-01-2024 take 1 tablet by say th once daily folic acid (FOLVITE) 1 MG tablet Take 2 (two) tablets (2,000 mcg total) by mouth daily . 02/01/2024 Active furosemide 40 mg oral tablet (20 sources) Loop Diuretic Start: 09-28-2023 End: 06-06-2025 take 1 tablet by mouth once daily furosemide (LASIX) 40 mg tablet Indications: Bilateral lower extremity edema , Essential hypertension Take 1 tablet by mouth once daily. 90 tablet 1 12/08/2024 06/06/2025 Active Start: 11-17-2022 End: 10-04-2023 take 1 [...] on above: Use [facility]. lactobacillus acidophilus (13 sources) End: 07-14-2023 LACTOBACILLUS ACIDOPHILUS (PROBIOTIC ORAL) Take by mouth. 0 07/14/2023 Discontinued LACTOBACILLUS AC IDOPHILUS (PROBIOTIC ORAL) Take by mouth. 0 Active End: 05-18-2017 LACTOBACILLUS ACIDOPHILUS (P ROBIOTIC ORAL) Take by mouth. 05/18/2017 Discontinued Comment on above: Take by mouth. methotrexate 2.5 mg oral tablet (6 sources) Folate Analog Metabolic Inhibitor Start: take [...] each 08/06/2023 10/04/2023 Discontinued (Med List Cleanup) omeprazole 20 mg delayed release oral capsule [...] scores based on patient preference? Yes pantoprazole 40 mg delayed r elease oral tablet (20 sources) Proton Pump Inhibitor Start: 08-12-2023 Start: 09-26-2021 End: 12-08-2024 take 1 tablet by mouth once daily pantoprazole DR (PROTONIX) 40 mg tablet Indications: Gastroesophageal reflux disease without esophagitis Take 1 tablet by mouth once daily. 90 tablet 3 12/08/2024 Active take 1 tablet by say th once daily before mealtime pantoprazole (ProtoNix) 20 mg EC tablet Take 1 tablet (20 mg) by mouth once daily in the morning. Take before meals. Do not crush, chew, or split. Active Comment on above: TAKE 1 TABLET EVERY DAY Take 1 tablet by say th once daily. phenylephrine hydrochloride 25 mg/ml ophthalmic solution (2 sources) alpha-1 Adrenergic Agonist Start: 08-21-2022 End: 08-22-2022 PHENYLephrine 2.5 % 1 Drop (AK-DILATE, GONZÁLEZ-SYNEPHRINE) Start: 07-08-2022 End: 07-09-2022 PHENYLephrine 2.5 % 1 Drop ( AK-DILATE) polyethylene glycol 400 4 mg /ml / propylene glycol 3 mg/ml ophthalmic solution (7 sources) Start: 04-07-2016 peg 400-propyl tayo glycol [...] 3 02/17/2024 Active Start: 12-26-2016 End: 02-17-2024 KLOR-CON 10 10 mEq tablet Active prednisoLONE acetate 10 mg/ml ophthalmic suspension [...] times daily. predniSONE 10 mg oral tablet (4 sources) Start: take 1 tablet by mouth [...] 0.9% 50 mL IV (1 source) Start: 04-16-2 024 6.25 mg, intravenous, Administer over 15 Minutes, [...] Take 1 capsule by mouth daily. Active naproxen 500 mg delayed release oral tablet (20 sources) Nonsteroidal Anti-inflammatory Drug Start: 08-23-2015 End: 12-08-2024 take 1 tablet by mouth twice daily as needed Naproxen SR (EC-NAPROSYN) 500 mg EC tablet Indications: Arthritis pain, wrist Take 1 tablet by mouth twice daily as needed. 30 tablet 1 08/23/2015 12/08/2024 Discontinued take 1 tablet by say th twice daily as needed naproxen (Naprosyn) 250 mg tablet Take 1 tablet (250 mg) by mouth 2 times a day as needed. Active Comment on above: Take 1 tablet by say th twice daily as needed. povidone-iodine 50 mg/ml topical solution (1 source) Antiseptic Start: 08-10-19 End: 08-10-19 1 Application (1 kit), Topical, Once, On Wed08/10/23 at 0900, For 1 dose, Preprocedure tranexamic acid 650 mg oral tablet (3 sources) Antifibrinolytic Agent Start: 08-10-19 End: 08-10-19 take 1 dose by mouth every six [...] sources) Coronary arteriosclerosis; Translations: [Coronary arteriosclerosis in [place] artery] Onset: 08-16-2015 08-16-2015 Chronic Deficiency and other anemia (1 source) Iron deficiency anemia; Translations: [Iron deficiency anemia, unspecified] 12-08-2024 Episodic Deficiency and other anemia (1 source) Iron deficiency anemia, unspecified; Translations: [Iron deficiency anemia, unspecified iron deficiency anemia type] Onset: 12-08-2024 Episodic Disorders of lipid metabolism (20 sources) Hyperlipidemia; Translations: [Mixed hyperlipidemia] Onset: 08-16-2015 08-16-2015 Chronic Esophageal disorders (20 sources) Gastroesophageal reflux disease without esophagitis; Translations: [Gastro-esophageal reflux disease without esophagitis] Onset: 08-01-2013 Chronic Essential hypertension (20 sources) Hypertensive disorder; Translations: [Essential hypertension] Onset: 08-16-2015 08-16-2015 Chronic Immunizations and screening for infectious disease (5 sources) Raised antinuclear antibody; Translations: [Other specified abnormal immunological findings in serum] Onset: 02-01-2024 09-28-2023 Episodic Inflammation; infection of eye (except that caused [...] (2 sources) Drug therapy finding; Translations: [Other intermediate manager (current) drug therapy] Episodic Other and ill-defined [...] artificial shoulder joint] Onset: 08-10-2023 Chronic Other ear and sense organ disorders (1 [...] Episodic Other nutritional; endocrine; and metabolic disorders (13 sources) Obesity; Translations: [Obesity, unspecified] Onset: 10-06-2023 10-06-2023 Chronic Other nutritional; endocrine; and metabolic disorders (3 sources) Obese class II; Translations: [Obesity, Class II, BMI 35-39.9] Onset: 12-08-2024 12-08-2024 Chronic Other screening for suspected conditions (not mental disorders or infectious disease) (5 sources) Patient encounter status; Translations: [Encounter for screening mammogram for malignant neoplasm of breast] Episodic Residual codes; unclassified (20 sources) Bilateral lower limb edema; Translations: [Localized edema] Onset: 08-11-2016 Episodic Retinal detachments; defects; vascular occlusion; and retinopathy (20 sources) Bilateral epiretinal membrane of eyes; Translations: [Puckering of macula, bilateral] Onset: 10-13-2019 10-13-2019 Chronic Rheumatoid arthritis and related disease (1 source) Rheumatoid arthritis with rheumatoid factor of multiple sites without organ or systems involvement; Translations: [Rheumatoid arthritis with rheumatoid factor of multiple sites without organ or systems involvement] Onset: 06-09-2024 Chronic Screening and history of mental health and substance abuse codes (2 sources) Encounter for screening for depression; Translations: [Encounter for screening examination for other mental health and behavioral disorders] Onset: 12-08-2024 Episodic Unclassified (2 sources) History of reverse prosthetic total arthroplasty of right shoulder 08-07-2024 Unclassified (2 sources) Extensor tendon rupture of hand, right, initial encounter 08-14-2024 Unclassified (2 sources) 1 year follow up ear cleaning Onset: 01-17-2024 Unclassified (1 source) Obesity, Class II, BMI 35-39.9; Translations: [Obesity, Class II, BMI 35-39.9] Onset: 12-08-2024 Past or Other Problems Problem Classification Problem [...] fracture] Onset: 06-07-2023 Resolved: 08-11-2023 06-09-2023 Episodic Malaise and fatigue (20 sources) Fatigue; Translations: [Other fatigue] Onset: 02-17-2022 Episodic Other and unspecified benign neoplasm (20 sources) Hemangioma of eyelid; Translations: [Hemangioma of skin and subcutaneous tissue] Onset: 10-13-2019 10-13-2019 Episodic Other connective tissue disease (17 sources) Spontaneous rupture of extensor tendon of right hand; Translations: [Spontaneous rupture of extensor tendons, right hand] Onset: 09-23-2023 09-23-2023 Episodic Other connective tissue disease (1 source) Spontaneous rupture of extensor tendons, right hand; Translations: [Spontaneous rupture of extensor tendons, right hand] Onset: 01-06-2024 Episodic Other eye disorders (20 sources) Tear film insufficiency; Translations: [Dry eye syndrome of unspecified lacrimal gland] Onset: 04-07-2016 04-07-2016 Episodic Other eye disorders (20 sources) H/O: R cataract extraction; Translations: [Cataract extraction status, right eye] Onset: 01-19-2020 01-19-2020 Episodic Other eye disorders (20 sources) H/O: L cataract extraction; Translations: [Cataract extraction status, left eye] Onset: 01-19-2020 01-19-2020 Episodic Other eye disorders (17 sources) Dry eyes; Translations: [Dry eye syndrome [...] joint, shoulder region] Onset: 09-28-2023 09-28-2023 Episodic Other nutritional; endocrine; and metabolic disorders (20 sources) Body mass index 40+ - severely obese; Translations: [Morbid (severe) obesity due to excess calories] Onset: 09-06-2017 Resolved: 12-08-2024 09-06-2017 Chronic Residual codes; unclassified (12 sources) Edema of [...] Test Name Value Interpretation Reference Range Facility Basic metabolic 2000 panelon 12-08-2024 Anion gap [Moles/Vol] 12 mmol/L Normal 8-15 [facility] Comment on above: Order Comment: Speci men Type: BLOOD SPECIMEN Ordering Facility: [facility] Address: [address] [place] [address] Performed By: #### L IPRYAN, 18682-6 #### [facility] CLIA [id number] [address] [place] [address] [place] Calcium [Mass/Vol] 9.9 mg/dL Normal 8.5-10.2 [facility] Comment on above: Order Comment: Speci men Type: BLOOD SPECIMEN Ordering Facility: [facility] Address: [address] [place] [address] Performed By: #### L IPRYAN, 36180-2 #### [facility] CLIA [id number] [address] [place] [address] [place] Chloride [Moles/Vol] 101 mmol/L Normal 98-107 [facility] Comment on above: Order Comment: Speci men Type: BLOOD SPECIMEN Ordering Facility: [facility] Address: [address] [place] [address] Performed By: #### L IPNF, 87036-3 #### [facility] CLIA [id number] [address] [place] [address] [place] CO2 [Moles/Vol] 25 mmol/L Normal 22-30 [facility] Comment on above: Order Comment: Speci men Type: BLOOD SPECIMEN Ordering Facility: [facility] Address: [address] [place] [address] Performed By: #### L AIDA, 00613-9 #### [facility] CLIA [id number] [address] [place] [address] [place] Creatinine [Mass/Vol] 0.86 mg/dL Normal 0.58-0.96 [facility] Comment on above: Order Comment: Speci men Type: BLOOD SPECIMEN Ordering Facility: [facility] Address: [address] [place] [address] Performed By: #### L AIDA, 78406-0 #### [facility] IA [id number] [address] [place] [address] [place] eGFRcr SerPlBld CKD-EPI 2020 68 mL/min/1.73m??? Normal >=60 [facility] Comment on above: Order Comment: Speci men Type: BLOOD SPECIMEN Ordering Facility: [facility] Address: [address] [place] [address] Result Comment: Parul mated Glomerular Filtration Rate [...] accurately reflect actual GFR. Performed By: #### L AIDA, 67280-6 #### [facility] CLIA [id number] [address] [place] [address] [place] Glucose [Mass/Vol] 89 mg/dL Normal 74-99 [facility] Comment on above: Order Comment: Speci men Type: BLOOD SPECIMEN Ordering Facility: [facility] Address: [address] [place] [address] Result Comment: The [place] [employer] (ADA) provides guidance for cutoff [...] Standards of Medical Care in Diabetes 2016, [place] [employer]. Diabetes Care. 2016.39(Suppl 1). Performed By: #### L AIDA, 87252-2 #### [facility] CLIA [id number] [address] [place] [address] [place] Potassium [Moles/Vol] 4.9 mmol/L Normal 3.7-5.1 [facility] Comment on above: Order Comment: Speci men Type: BLOOD SPECIMEN Ordering Facility: [facility] Address: [address] [place] [address] Performed By: #### L AIDA, 60348-7 #### [facility] CLIA [id number] [address] [place] [address] [place] Sodium [Moles/Vol] 138 mmol/L Normal 136-144 [facility] Comment on above: Order Comment: Speci men Type: BLOOD SPECIMEN Ordering Facility: [facility] Address: [address] [place] [address] Performed By: #### L AIDA, 00155-2 #### [facility] CLIA [id number] [address] [place] [address] [place] Urea nitrogen [Mass/Vol] 14 mg/dL Normal 7-21 [facility] Comment on above: Order Comment: Speci men Type: BLOOD SPECIMEN Ordering Facility: [facility] Address: [address] [place] [address] Performed By: #### L IPNF, 73137-9 #### [facility] CLIA [id number] [address] [place] [address] [place] CBC panel Auto (Bld)on 12-08 Erythrocyte distribution width (RBC) [Ratio] 14.5 % Normal 11.5-15.0 [facility] Comment on above: Order Comment: Speci men Type: BLOOD SPECIMEN Ordering Facility: [facility] Address: [address] [place] [address] Performed By: #### L IPNF, 08843-2 #### [facility] CLIA [id number] [address] [place] [address] [place] Hematocrit (Bld) [Volume fraction] 36.7 % Normal 36.0-46.0 [facility] Comment on above: Order Comment: Speci men Type: BLOOD SPECIMEN Ordering Facility: [facility] Address: [address] [place] [address] Performed By: #### L IPNF, 63849-3 #### [facility] CLIA [id number] [address] [place] [address] [place] Hemoglobin (Bld) [Mass/Vol] 12.0 g/dL Normal 11.5-15.5 [facility] Comment on above: Order Comment: Speci men Type: BLOOD SPECIMEN Ordering Facility: [facility] Address: [address] [place] [address] Performed By: #### L IPNF, 39925-8 #### [facility] CLIA [id number] [address] [place] [address] [place] MCH (RBC) [Entitic mass] 33.8 pg Normal 26.0-34.0 [facility] Comment on above: Order Comment: Speci men Type: BLOOD SPECIMEN Ordering Facility: [facility] Address: [address] [place] [address] Performed By: #### L IPNF, #### [facility] CLIA [id number] [address] [place] [address] [place] MCHC (RBC) [Mass/Vol] 32.7 g/dL Normal 30.5-36.0 [facility] Comment on above: Order Comment: Speci men Type: BLOOD SPECIMEN Ordering Facility: [facility] Address: [address] [place] [address] Performed By: #### L AIDA, 58357-2 #### [facility] CLIA [id number] [address] [place] [address] [place] MCV (RBC) [Entitic vol] 103.4 fL High 80.0-100.0 [facility] Comment on above: Order Comment: Speci men Type: BLOOD SPECIMEN Ordering Facility: [facility] Address: [address] [place] [address] Performed By: #### L AIDA, 08056-8 #### [facility] CLIA [id number] [address] [place] [address] [place] Nucleated RBC (Bld) [#/Vol] 10*3/uL Normal <0.01 [facility] Comment on above: Order Comment: Speci men Type: BLOOD SPECIMEN Ordering Facility: [facility] Address: [address] [place] [address] Performed By: #### L AIDA, #### [facility] CLIA [id number] [address] [place] [address] [place] Platelet mean volume (Bld) [Entitic vol] 9.6 fL Normal 9.0-12.7 [facility] Comment on above: Order Comment: Speci men Type: BLOOD SPECIMEN Ordering Facility: [facility] Address: [address] [place] [address] Performed By: #### L AIDA, 22222-0 #### [facility] CLIA [id number] [address] [place] [address] [place] Platelets (Bld) [#/Vol] 272 10*3/uL Normal 150-400 [facility] Comment on above: Order Comment: Speci men Type: BLOOD SPECIMEN Ordering Facility: [facility] Address: [address] [place] [address] Performed By: #### L IPNF, 80112-3 #### [facility] CLIA [id number] [address] [place] [address] [place] RBC (Bld) [#/Vol] 3.55 10*6/uL Low 3.90-5.20 [facility] Comment on above: Order Comment: Speci men Type: BLOOD SPECIMEN Ordering Facility: [facility] Address: [address] [place] [address] Performed By: #### L IPNF, 76092-2 #### [facility] CLIA [id number] [address] [place] [address] [place] WBC (Bld) [#/Vol] 5.77 10*3/uL Normal 3.70-11.00 [facility] Comment on above: Order Comment: Speci men Type: BLOOD SPECIMEN Ordering Facility: [facility] Address: [address] [place] [address] Performed By: #### L IPNF, 30253-6 #### [facility] CLIA [id number] [address] [place] [address] [place] CNOVon 12-08-2024 CNOV Office Visit (FAMPWS ) FELISHA JOAQUIN ([id number]) 1945 F Date Time Provider Department 12/08/24 10:20 AM LYNDSEY NEUMANN During your visit today, we recorded the following information about you: Pulse Respiration Blood pressure Weight 70/minute 16/minute 132/86 100 kg Lyndsey Neumann APRN.CNP 12/08/2024 10:57 AM Signed This is a 79 year old female who presents today with: Felisha Joaquin is an 79-year-old female with a history of anemia, presenting for a 6-month follow-up and medication refills. HISTORY OF PRESENT ILLNESS: Follow-Up Visit: - No current concerns. Anemia: - Chronic condition. - Started taking iron supplements twice per week at advise from Dr Gunter since September Weight Management: - Weight up 3# from May, but overall down 17# since June 2023 HTN Controlled Last BP Last 14 Encounter BP Readings: Date: BP: 12/08/2024 132/86 06/01/2024 122/62 09/28/2023 136/82 07/13/2023 136/78 02/16/2022 110/80 01/10/2020 138/77 01/05/2020 138/77 12/13/2019 138/77 10/24/2019 197/78 10/13/2019 126/74 03/08/2018 128/70 11/12/2017 120/80 07/09/2017 124/72 04/16/2017 146/80 GERD Controlled on pantoprazole and dietary restrictions Rheumatoid arthritis Follows with Dr Gunter PAST MEDICAL HISTORY: PAST MEDICAL HISTORY Diagnosis Date Acid reflux Arrhythmia Arthritis Coronary artery disease Does use hearing aid Heart attack (HCC) Hypertension Osteopenia 07/2013 left hip on DEXA Rash of face S/P YAG capsulotomy, left 08/12/2022 Seasonal allergies Snoring PAST SURGICAL HISTORY Procedure Laterality Date COLONOSCOPY 2006 small polyp COLONOSCOPY FLX DX W/COLLJ SPEC WHEN PFRMD 08/02/14 Colonoscopy COLONOSCOPY FLX DX W/COLLJ SPEC WHEN PFRMD 11/27/2019 Colonoscopy ESOPHAGOGASTRODUODENOS COPY TRANSORAL DIAGNOSTIC 11/27/2019 EGD PAST SURGICAL HISTORY [...] Cataract Extraction with PC IOL 21.0 D ALLERGIES Patient has no known allergies. MEDICATIONS Current Outpatient Medications Medication Sig methotrexate 2.5 mg tablet Take 7 tablets by mouth one time a week. prednisoLONE acetate (PRED FORTE, ECONOPRED PLUS) 1 % ophthalmic suspension Use 1 Drop in the right eye four times daily. ketorolac (ACULAR) 0.5 % ophthalmic solution Use 1 Drop in the right eye four times daily. docusate sodium (STOOL SOFTENER) 100 mg capsule Take 1 capsule by mouth twice daily. Fexofenadine-Pseudoeph edrine (ELSIE-D 24 HOUR) 180-240 mg per 24 hr tablet Take 1 tablet by mouth once daily as needed (sinus/cold symptoms). KLOR-CON 10 10 mEq tablet enalapril (VASOTEC) 2.5 mg tablet Take 2.5 [...] Take 500 mg by mouth once daily. furosemide (LASIX) 40 mg tablet Take 1 tablet by mouth once daily. folic acid 1 mg tablet Take 1 tablet by mouth once daily. pantoprazole DR (PROTONIX) 40 mg tablet Take 1 tablet by mouth once daily. ferrous sulfate 325 mg (65 mg iron) tablet Take 1 tablet by mouth two times a week. No current facility-administered medications for this visit. FAMILY HISTORY Problem Relation Age of Onset Arthritis Mother Heart Mother Hypertension Mother Arthritis Father Heart Father Hypertension Father Cancer Sister Breast Cancer Sister 56 No Ocular Disease No Family History Diabetes No Family History SOCIAL HISTORY[1] REVIEW OF SYSTEMS See HPI EXAM: BP 132/86 (BP Site: Left Arm, BP Position: Sitting, BP Cuff Size: Regular Adult) Pulse 70 Resp 16 Wt 100 kg (220 lb 6.4 oz) BMI 35.85 kg/m? PHYSICAL EXAM: General Appearance: Well appearing, alert, in no acute distress, well-hydrated, well nourished.. Lungs: Lungs clear to auscultation. No wheezing, rhonchi, rales.. Heart: RRR without murmur, gallop, or rubs. No ectopy . ASSESSMENT/PLAN: 1. Essential hypertension - ICD9: 401.9, ICD10: I10 (primary diagnosis) - Controlled - Encouraged sodium restriction, DASH or Mediterranean diet - Recommend regular aerobic exercise as tolerated, light - BASIC METABOLIC PANEL - FUROSEMIDE 40 MG TABLET - COMPLETE BLOOD COUNT - LIPID PANEL, NONFASTING 2. Bilateral lower extremity edema - ICD9: 782.3, ICD10: R60.0 - controlled, support hose on, nonpitting but present in lower legs , ankles (more content not included)... Normal [facility] LIPID PANEL, NONFASTINGon Cholesterol [Mass/Vol] 156 mg/dL Normal <200 [facility] Comment on above: Order Comment: Ever zaldivar Type: BLOOD SPECIMEN Ordering Facility: [facility] Address: [address] [place] [address] Result Comment: <200 mg/dL, Desirable 200-239 mg/dL, Borderline high >239 mg/dL, High Performed By: #### L IPNF, 82534-4 #### [facility] CLIA [id number] [address] [place] [address] [place] HDL CHOLESTEROL, NF 53 mg/dL Normal >39 [facility] Comment on above: Order Comment: Ever zaldivar Type: BLOOD SPECIMEN Ordering Facility: [facility] Address: [address] [place] [address] Result Comment: 40-5 9 mg/dL, Acceptable >59 mg/dL, High: Negative risk factor for coronary heart disease <40 mg/dL, Low: Positive risk factor for coronary heart disease Performed By: #### L IPNF, 01529-4 #### [facility] CLIA [id number] [address] [place] [address] [place] LDL CHOLESTEROL CALCULATED, NF 81 mg/dL Normal <100 [facility] Comment on above: Order Comment: Ever zaldivar Type: BLOOD SPECIMEN Ordering Facility: [facility] Address: [address] [place] [address] Result Comment: <100 mg/dL, Optimal 100-129 mg/dL, Near optimal/above optimal 130-159 mg/dL, Borderline high 160-189 mg/dL, High >189 mg/dL, Very high Secondary prevention optimal LDL Cholesterol levels are recommended to be <70 mg/dL LDL cholesterol is calculated using the Perez-NIH equation. Performed By: #### L AIDA, 87353-9 #### [facility] CLIA [id number] [address] [place] [address] OF [facility] LDL/HDL RATIO, NF 1.53 mg/dL Normal <2.54 [facility] Comment on above: Order Comment: Ever zaldivar Type: BLOOD SPECIMEN Ordering Facility: [facility] Address: [address] [place] [address] Result Comment: Refe rence: 1. National Cholesterol Education Program ATP III Guideline At-A-Glance Quick Desk Reference: National Heart, Lung, and Blood Momence. National Institutes of Health. 2001: NIH Publication No. 01-3305. 2. An International Atherosclerosis Society position paper: global recommendations for the management of dyslipidemia: executive summary, Atherosclerosis. 2014: 232(2):410-413. Performed By: #### L AIDA, 73136-1 #### [facility] CLIA [id number] [address] [place] [address] NON HDL CHOL, NF 103 mg/dL Normal <130 [facility] Comment on above: Order Comment: Ever zaldivar Type: BLOOD SPECIMEN Ordering Facility: [facility] Address: [address] [place] [address] Result Comment: <130 mg/dL, Optimal 130-159 mg/dL, Near optimal/above optimal 160-189 mg/dL, Borderline high 190-219 mg/dL, High >219 mg/dL, Very high Secondary prevention optimal non HDL Cholesterol levels are recommended to be <100 mg/dL Performed By: #### L AIDA, 98914-7 #### [facility] CLIA [id number] [address] [place] [address] T CHOL/HDL RATIO NF 2.94 mg/dL Normal <5.10 [facility] Comment on above: Order Comment: Speci men Type: BLOOD SPECIMEN Ordering Facility: [facility] Address: [address] [place] [address] Performed By: #### L IPNF, 36275-4 #### [facility] CLIA [id number] [address] [place] [address] [place] TRIGLYCERIDES, NF 121 mg/dL Normal <150 [facility] Comment on above: Order Comment: Speci men Type: BLOOD SPECIMEN Ordering Facility: [facility] Address: [address] [place] [address] Result Comment: <150 mg/dL, Normal 150-199 mg/dL, Borderline high 200-499 mg/dL, High >499 mg/dL, Very high Performed By: #### L IPNF, 71310-9 #### [facility] CLIA [id number] [address] [place] [address] [place] VLDL CHOLESTEROL, NF 19 mg/dL Normal <30 [facility] Comment on above: Order Comment: Speci men Type: BLOOD SPECIMEN Ordering Facility: [facility] Address: [address] [place] [address] Performed By: #### L IPNF, 72361-0 #### [facility] CLIA [id number] [address] [place] [address] [place] Absolute lymphocyte countOrd ered By: Love Gunter on 10-04-2024 Lymphocytes Auto (Unsp spec) [#/Vol] 1.17 10*3/uL 0.83-4.51 [facility] Absolute neutrophil countOrd ered By: Love Gunter on 10-04-2024 Neutrophils (Bld) [#/Vol] 3.4 10*3/uL 2.0-7.7 [facility] Anion gap in Serum or Plasma Ordered By: Love Gunter on 10-04-2024 Anion gap [Moles/Vol] 12 mmol/L 5-15 [facility] Automated lymphocyte count a s percentage of total leukocytesOrdered By: Lovejonah Gunter on 10-04-2024 Lymphocytes/100 WBC Auto (Unsp spec) 23.7 % 19-41 [facility] BUN/creatinine ratioOrdered By: Lovejonah Gunter on 10-04-2024 Urea nitrogen/Creatinine [Mass ratio] 17.8 mg/mg 10-20 [facility] Basophil percentageOrdered B y: Love Gunter on 10-04-2024 Basophils/100 WBC (Bld) 0.2 % 0-1 [facility] Bilirubin, totalOrdered By: Lovejonah Gunter on 10-04-2024 Bilirubin [Mass/Vol] 0.74 mg/dL 0.00-1.30 [facility] CBC W/Diff, Automatedon 09-24 Absolute Lymph 1.17 X10 3/uL Normal 0.83-4.51 [facility] Comment on above: Performed By: #### L 100.0100, L500.4050 #### [facility] [address] [place], [address] Absolute Neut 3.4 X10 3/uL Normal 2.0-7.7 [facility] Comment on above: Performed By: #### L 100.0100, L500.4050 #### [facility] [address] [place], [address] Basophils/100 WBC (Bld) 0.2 % Normal 0-1 [facility] Comment on above: Performed By: #### L 100.0100, L500.4050 #### [facility] [address] [place], [address] Eosinophils/100 WBC (Bld) 1.6 % Normal 0-5 [facility] Comment on above: Performed By: #### L 100.0100, L500.4050 #### [facility] [address] [place], [address] Erythrocyte distribution width (RBC) [Ratio] 14.4 % Normal 11.6-14.6 [facility] Comment on above: Performed By: #### L 100.0100, L500.4050 #### [facility] [address] [place], [address] Hematocrit (Bld) [Volume fraction] 33.1 % Low 37-47 [facility] Comment on above: Performed By: #### L 100.0100, L500.4050 #### [facility] [address] [place], [address] Hemoglobin (Bld) [Mass/Vol] 10.9 g/dL Low 12.0-15.0 [facility] Comment on above: Performed By: #### L 100.0100, L500.4050 #### [facility] [address] [place], [address] IG% 0.200 Normal 0.0-0.9 [facility] Comment on above: Result Comment: IG% - Immature Granulocytes (promyelocytes, myelocytes and metamyelocytes) > 1% indicates that a LEFT SHIFT is Present. Performed By: #### L 100.0100, L500.4050 #### [facility] [address] [place], [address] Lymphocytes/100 WBC (Bld) 23.7 % Normal 19-41 [facility] Comment on above: Performed By: #### L 100.0100, L500.4050 #### [facility] [address] [place], [address] MCH (RBC) [Entitic mass] 33.6 pg High 27.0-32.0 [facility] Comment on above: Performed By: #### L 100.0100, L500.4050 #### [facility] [address] [place], [address] MCHC (RBC) [Mass/Vol] 32.9 g/dL Normal 32-36 [facility] Comment on above: Performed By: #### L 100.0100, L500.4050 #### [facility] [address] [place], [address] MCV (RBC) [Entitic vol] 102.2 fL High 81-99 [facility] Comment on above: Performed By: #### L 100.0100, L500.4050 #### [facility] [address] [place], [address] Monocytes/100 WBC (Bld) 5.3 % Normal 0-10 [facility] Comment on above: Performed By: #### L 100.0100, L500.4050 #### [facility] [address] [place], [address] Neutrophils/100 WBC (Bld) 69.0 % Normal 47-70 [facility] Comment on above: Performed By: #### L 100.0100, L500.4050 #### [facility] [address] [place], [address] Nucleated RBC (Bld) [#/Vol] 0 10*3/uL Normal 0-5 [facility] Comment on above: Performed By: #### L 100.0100, L500.4050 #### [facility] [address] [place], [address] Platelet mean volume (Bld) [Entitic vol] 9.7 fL Normal 6.2-12.0 [facility] Comment on above: Performed By: #### L 100.0100, L500.4050 #### [facility] [address] [place], [address] Platelets (Bld) [#/Vol] 241 10*3/uL Normal 150-450 [facility] Comment on above: Performed By: #### L 100.0100, L500.4050 #### [facility] [address] [place], [address] RBC (Bld) [#/Vol] 3.24 10*6/uL Low 4.2-5.4 [facility] Comment on above: Performed By: #### L 100.0100, L500.4050 #### [facility] [address] [place], [address] RDW SD 53.1 fl High 35.1-43.9 [facility] Comment on above: Performed By: #### L 100.0100, L500.4050 #### [facility] [address] [place], [address] WBC (Bld) [#/Vol] 4.9 10*3/uL Normal 4.4-11.0 [facility] Comment on above: Performed By: #### L 100.0100, L500.4050 #### [facility] [address] [place], [address] Carbon dioxide, total [Moles /volume] in Central venous bloodOrdered By: Love Gunter on 10-04-2024 CO2 [Moles/Vol] 24.4 mmol/L 21.0-32.0 [facility] Chloride assayOrdered By: Rustam Gunter on 10-04-2024 Chloride [Moles/Vol] 99 mmol/L 98-108 [facility] Comprehensive Metabolic Prof ilon 10-04-2024 Albumin [Mass/Vol] 4.0 g/dL Normal 3.4-4.8 [facility] Comment on above: Performed By: #### L 100.0100, L500.4050 #### [facility] [address] [place], [address] Albumin/Globulin [Mass ratio] 1.5 {ratio} Normal 0.9-2.4 [facility] Comment on above: Performed By: #### L 100.0100, L500.4050 #### [facility] [address] [place], [address] ALK PHOS 114 U/L High 35-104 [facility] Comment on above: Performed By: #### L 100.0100, L500.4050 #### [facility] [address] [place], [address] ALT [Catalytic activity/Vol] 14 U/L Normal <=34 [facility] Comment on above: Performed By: #### L 100.0100, L500.4050 #### [facility] [address] [place], [address] AST [Catalytic activity/Vol] 24 U/L Normal <=31 [facility] Comment on above: Performed By: #### L 100.0100, L500.4050 #### [facility] [address] [place], [address] Bilirubin [Mass/Vol] 0.74 mg/dL Normal 0.00-1.30 [facility] Comment on above: Performed By: #### L 100.0100, L500.4050 #### [facility] [address] [place], [address] BUN/CRE 17.8 RATIO Normal 10-20 [facility] Comment on above: Performed By: #### L 100.0100, L500.4050 #### [facility] [address] [place], [address] Calcium [Mass/Vol] 9.8 mg/dL Normal 7.6-11.0 [facility] Comment on above: Performed By: #### L 100.0100, L500.4050 #### [facility] [address] [place], [address] Chloride [Moles/Vol] 99 mmol/L Normal 98-108 [facility] Comment on above: Performed By: #### L 100.0100, L500.4050 #### [facility] [address] [place], [address] CO2 [Moles/Vol] 24.4 mmol/L Normal 21.0-32.0 [facility] Comment on above: Performed By: #### L 100.0100, L500.4050 #### [facility] [address] [place], [address] Creatinine [Mass/Vol] 0.83 mg/dL Normal 0.70-1.20 [facility] Comment on above: Performed By: #### L 100.0100, L500.4050 #### [facility] [address] [place], [address] GAP 12 Normal 5-15 [facility] Comment on above: Performed By: #### L 100.0100, L500.4050 #### [facility] [address] [place], [address] GFR/1.73 sq M.predicted among non-blacks MDRD (S/P/Bld) [Vol rate/Area] 70 mL/min/{1.73_m2} Normal >60 [facility] Comment on above: Result Comment: mL/m in/1.73m2 CKD-EPI Creatinine Equation (2020) Performed By: #### L 100.0100, L500.4050 #### [facility] [address] [place], [address] Globulin (S) [Mass/Vol] 2.7 g/dL Normal 2.2-4.2 [facility] Comment on above: Performed By: #### L 100.0100, L500.4050 #### [facility] [address] [place], [address] Glucose [Mass/Vol] 97 mg/dL Normal 70-99 [facility] Comment on above: Performed By: #### L 100.0100, L500.4050 #### [facility] [address] [place], [address] Potassium [Moles/Vol] 4.2 mmol/L Normal 3.3-5.1 [facility] Comment on above: Performed By: #### L 100.0100, L500.4050 #### [facility] [address] [place], [address] Sodium [Moles/Vol] 135 mmol/L Normal 133-145 [facility] Comment on above: Performed By: #### L 100.0100, L500.4050 #### [facility] [address] [place], [address] T PROT 6.7 g/dL Normal 5.9-8.4 [facility] Comment on above: Performed By: #### L 100.0100, L500.4050 #### [facility] [address] [place], [address] Urea nitrogen [Mass/Vol] 15 mg/dL Normal 4-19 [facility] Comment on above: Performed By: #### L 100.0100, L500.4050 #### [facility] [address] [place], [address] Eosinophil percentageOrdered By: Love Gunter on 10-04-2024 Eosinophils/100 WBC (Bld) 1.6 % 0-5 [facility] Erythrocyte distribution wid th ratioOrdered By: Love Gunter on 10-04-2024 Erythrocyte distribution width (RBC) [Ratio] 14.4 % 11.6-14.6 [facility] Erythrocyte distribution wid th standard deviationOrdered By: Love Gunter on 10-04-2024 Erythrocyte distribution width (RBC) [Ratio] 53.1 fl High 35.1-43.9 [facility] Glomerular filtration rate ( GFR) estimation/1.73 sq m using serum, plasma, or whole bOrdered By: Love Gunter on 10-04-2024 GFR/1.73 sq M.predicted among non-blacks MDRD (S/P/Bld) [Vol rate/Area] 70 mL/min/{1.73_m2} >60 [facility] Comment on above: mL/min/1.73m2 CKD-EP I Creatinine Equation (2020) Hematocrit Auto (Bld) [Volum e fraction]Ordered By: Love Gunter on 10-04-2024 Hematocrit (Bld) [Volume fraction] 33.1 % Low 37-47 [facility] Hemoglobin measurementOrdere d By: Love Gunter on 10-04-2024 Hemoglobin (Bld) [Mass/Vol] 10.9 g/dL Low 12.0-15.0 [facility] Immature granulocytes/100 WB C Auto (Bld)Ordered By: Love Gunter on 10-04-2024 Immature granulocytes/100 WBC (Bld) 0.200 % 0.0-0.9 [facility] Comment on above: IG% - Immature Granu locytes (promyelocytes, myelocytes and metamyelocytes) > 1% indicates that a LEFT SHIFT is Present. Laboratory - Chemistry and C hemistry - challengeOrdered By: Love Gunter on 10-04-2024 AST [Catalytic activity/Vol] 24 U/L <32 [facility] MCV (mean corpuscular volume ) determinationOrdered By: Love Gunter on 10-04-2024 MCV (RBC) [Entitic vol] 102.2 fL High 81-99 [facility] Mean corpuscular hemoglobin (MCH) determinationOrdered By: Love Gunter on 10-04-2024 MCH (RBC) [Entitic mass] 33.6 pg High 27.0-32.0 [facility] Mean corpuscular hemoglobin concentration (MCHC) determinationOrdered By: Love Gunter on 10-04-2024 MCHC (RBC) [Mass/Vol] 32.9 g/dL 32-36 [facility] Mean platelet volume determi nationOrdered By: Love Gunter on 10-04-2024 Platelet mean volume (Bld) [Entitic vol] 9.7 fL 6.2-12.0 [facility] Monocyte percentageOrdered B y: Love Gunter on 10-04-2024 Monocytes/100 WBC (Bld) 5.3 % 0-10 [facility] Neutrophil percentageOrdered By: Love Gunter on 10-04-2024 Neutrophils/100 WBC (Bld) 69.0 % 47-70 [facility] Nucleated red blood cell per centageOrdered By: Love Gunter on 10-04-2024 Nucleated RBC/100 WBC (Bld) [Ratio] 0 % 0-5 [facility] Platelet countOrdered By: Rustam Gunter on 10-04-2024 Platelets (Bld) [#/Vol] 241 10*3/uL 150-450 [facility] Potassium measurement (mass/ volume)Ordered By: Love Gunter on 10-04-2024 Potassium (Unsp spec) [Mass/Vol] 4.2 mmol/L 3.3-5.1 [facility] RBC Auto (Bld) [#/Vol]Ordere d By: Love Gunter on 10-04-2024 RBC (Bld) [#/Vol] 3.24 10*6/uL Low 4.2-5.4 [facility] Serum creatinine measurement (mass/volume)Ordered By: Love Gunter on 10-04-2024 Creatinine [Mass/Vol] 0.83 mg/dL 0.70-1.20 [facility] Serum globulin measurementOr dered By: Love Gunter on 10-04-2024 Globulin (S) [Mass/Vol] 2.7 g/dL 2.2-4.2 [facility] [facility] Serum glucose measurement (m ass/volume)Ordered By: Love Gunter on 10-04-2024 Glucose [Mass/Vol] 97 mg/dL 70-99 [facility] Serum or plasma alanine bautista otransferase (ALT) measurementOrdered By: Love Gunter on 10-04-2024 ALT [Catalytic activity/Vol] 14 U/L <35 [facility] Serum or plasma albumin maritza urement (mass/volume)Ordered By: Love Gunter on 10-04-2024 Albumin [Mass/Vol] 4.0 g/dL 3.4-4.8 [facility] Serum or plasma albumin/glob ulin mass ratioOrdered By: Love Gunter on 10-04-2024 Albumin/Globulin [Mass ratio] 1.5 {ratio} 0.9-2.4 [facility] Serum or plasma alkaline joaquín sphatase measurementOrdered By: Love Gunter on 10-04-2024 ALP [Catalytic activity/Vol] 114 U/L High 35-104 [facility] Serum or plasma calcium maritza urement (mass/volume)Ordered By: Love Gunter on 10-04-2024 Calcium [Mass/Vol] 9.8 mg/dL 7.6-11.0 [facility] Serum or plasma urea nitroge n measurement (mass/volume)Ordered By: Love Gunter on 10-04-2024 Urea nitrogen [Mass/Vol] 15 mg/dL 4-19 [facility] Sodium levelOrdered By: Christina Gunter on 10-04-2024 Sodium [Moles/Vol] 135 mmol/L 133-145 [facility] Total proteinOrdered By: Eduard Gunter on 10-04-2024 Protein [Mass/Vol] 6.7 g/dL 5.9-8.4 [facility] White blood cell (WBC) count Ordered By: Love Gunter on 10-04-2024 WBC (Bld) [#/Vol] 4.9 10*3/uL 4.4-11.0 [facility] XR WRIST RIGHT 3+ VIEWSon XR WRIST RIGHT 3+ VIEWS Interpreted By: Maryam Levy, STUDY: XR WRIST RIGHT 3+ VIEWS; ; 08/14/2024 2:03 pm INDICATION: Signs/Symptoms:pain. 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 ACCESSION NUMBER(S): [id number] ORDERING CLINICIAN: MARYAM LUGO FINDINGS: Three views of the right wrist status post sterile procedure. Abundant radiocarpal arthritis again present. Ulna alignment unchanged from prior. Evidence of diffuse arthritic changes throughout radiocarpal, midcarpal and remainder of hand IMPRESSION: As above MACRO: None Signed by: Maryam Levy 08/14/2024 4:06 PM Dictation workstation: [id number] [facility] XR Wrist - right 3 Viewson 0 08-14-2024 As above MACRO: None Signed by: Maryam Levy 08/14/2024 4:06 PM Dictation workstation: [id number] MMODAL Interpreted By: Maryam Levy, STUDY: XR WRIST RIGHT 3+ VIEWS; ; 08/14/2024 2:03 pm INDICATION: Signs/Symptoms:pain. 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 ACCESSION NUMBER(S): [id number] ORDERING CLINICIAN: MARYAM LUGO FINDINGS: Three views of the right wrist status post sterile procedure. Abundant radiocarpal arthritis again present. Ulna alignment unchanged from prior. Evidence of diffuse arthritic changes throughout radiocarpal, midcarpal and remainder of hand MMODAL Nora Abdullahi MD - 08/14/2024 Interpreted By: Maryam Levy, STUDY: XR WRIST RIGHT 3+ VIEWS; ; 08/14/2024 2:03 pm INDICATION: Signs/Symptoms:pain. 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 ACCESSION NUMBER(S): [id number] ORDERING CLINICIAN: MARYAM LUGO FINDINGS: Three views of the right wrist status post sterile procedure. Abundant radiocarpal arthritis again present. Ulna alignment unchanged from prior. Evidence of diffuse arthritic changes throughout radiocarpal, midcarpal and remainder of hand IMPRESSION: As above MACRO: None Signed by: Maryam Levy 08/14/2024 4:06 PM Dictation workstation: [id number] [facility] Work Phone: [facility] Work Phone: Radiology Study observation (narrative) [facility] Work Phone: XR SHOULDER RIGHT 2+ VIEWSon 08-07-2024 XR SHOULDER RIGHT 2+ VIEWS Interpreted By: Indira Levy III, STUDY: XR SHOULDER RIGHT 2+ VIEWS; ; 08/07/2024 2:42 pm INDICATION: Signs/Symptoms:pain. 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 ACCESSION NUMBER(S): [id number] ORDERING CLINICIAN: INDIRA LEVY FINDINGS: Three views [...] Levy III 08/07/2024 3:39 PM Dictation workstation: [employer] [facility] Comment on above: Order Comment: 3 vie ws Grashey, axillary, Scap Y XR Shoulder - right 2 Viewso n 08-07-2024 Status post right reverse shoulder arthroplasty for fracture MACRO: None Signed by: Indira Levy III 08/07/2024 3:39 PM Dictation workstation: [id number] MMODAL Interpreted By: Indira Levy III, STUDY: XR SHOULDER RIGHT 2+ VIEWS; ; 08/07/2024 2:42 pm INDICATION: Signs/Symptoms:pain. 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 ACCESSION NUMBER(S): [id number] ORDERING CLINICIAN: INDIRA LEVY FINDINGS: Three views right shoulder: Status post right reverse shoulder arthroplasty for fracture. Similar inferior tilt about the glenosphere in comparison to prior x-rays. Scant lucency about the proximal aspect of the humeral prosthesis. No periprosthetic fracture. Some lucency about the inferior aspect in early findings consistent with scapular impingement. MMODAL Indira Levy MD - 08/07/2024 Interpreted By: Indira Levy III, STUDY: XR SHOULDER RIGHT 2+ VIEWS; ; 08/07/2024 2:42 pm INDICATION: Signs/Symptoms:pain. 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 ACCESSION NUMBER(S): [id number] ORDERING CLINICIAN: INDIRA LEVY FINDINGS: Three views [...] Levy III 08/07/2024 3:39 PM Dictation workstation: [id number] [facility] Work Phone: [facility] Work Phone: Radiology Study observation (narrative) [facility] Work Phone: CNOVon 06-01-2024 CNOV Office Visit (DEMARIOPWS ) MARIIFELISHA WEBB ([id number]) 1945 F Date Time Provider Department 06/01/24 9:00 AM KAYLEN BEST During your visit today, we recorded the following information about you: Pulse Respiration Blood pressure Weight 66/minute 14/minute 122/62 98.5 kg Height 1.67 m Kaylen Best APRN.RACKMAN 06/01/2024 9:29 AM Signed Felisha Joaquin is [...] history review Reviewed and updated problem list, medical/surgical/famil y/social history, medications, and allergies. Opioid use review [...] BMI 35.33 kg/m? Vision Screening: Follows with optometry/ophthalmolog y Assessment/Plan Medicare annual wellness visit, subsequent (Z00.00) - Counseled on healthy diet and regular exercise - Fall avoidance information provided - Personalized prevention plan provided Medications refilled. Recent lab work reviewed. Kaylen Best APRN.RACKMAN Allergies As of Date: 06/01/2024 (No Known [...] 1 capsule by mouth twice daily. - Fexofenadine-Pseudoeph edrine (ELSIE-D 24 HOUR) 180-240 mg per 24 [...] [R53.83] 02/17/2022 (more content not included)... [facility] FELISHA JOAQUIN ([id number]) 1945 F Date Time Provider Department 06/01/24 [facility] During [facility] visit today, we recorded the following information about you: Mara Dias, RN 06/01/2024 11:15 AM Signed Pt saw Kaylen this morning and was to call in with her dose of Methotrexate. Pt has 2.5 mg tablets and takes 7 tablets once a week on Saturdays. Kaylen Best APRN.RACKMAN 06/01/2024 11:20 AM Signed Noted, thank you. I have updated our medication list. Thank you, Kaylen Best APRN.RACKMAN Allergies As of Date: 06/01/2024 (No Known Allergies) Date Reviewed: 06/01/2024 Reviewed by: Harepr Stephenson LPN - Fully Assessed Reason for Visit: Medication Update [9856] Order(s):methotrexate 2.5 mg tabletTake 7 tablets by [...] 1 capsule by mouth twice daily. - Fexofenadine-Pseudoeph edrine (ELSIE-D 24 HOUR) 180-240 mg per 24 [...] Status:Closed by KAYLEN BEST on 06/01/24 Normal [facility] CBC W/Diff, Automatedon - Absolute Lymph 1.41 X10 3/uL Normal 0.83-4.51 [facility] Comment on above: Performed By: #### L 100.0100, L500.4050 #### [facility] [address] [place], [address] Absolute Neut 2.9 X10 3/uL Normal 2.0-7.7 [facility] Comment on above: Performed By: #### L 100.0100, L500.4050 #### [facility] [address] [place], [address] Basophils/100 WBC (Bld) 0.2 % Normal 0-1 [facility] Comment on above: Performed By: #### L 100.0100, L500.4050 #### [facility] [address] [place], [address] Eosinophils/100 WBC (Bld) 1.0 % Normal 0-5 [facility] Comment on above: Performed By: #### L 100.0100, L500.4050 #### [facility] [address] [place], [address] Erythrocyte distribution width (RBC) [Ratio] 15.1 % High 11.6-14.6 [facility] Comment on above: Performed By: #### L 100.0100, L500.4050 #### [facility] [address] [place], [address] Hematocrit (Bld) [Volume fraction] 34.2 % Low 37-47 [facility] Comment on above: Performed By: #### L 100.0100, L500.4050 #### [facility] [address] [place], [address] Hemoglobin (Bld) [Mass/Vol] 11.2 g/dL Low 12.0-15.0 [facility] Comment on above: Performed By: #### L 100.0100, L500.4050 #### [facility] [address] [place], [address] IG% 0.200 Normal 0.0-0.9 [facility] Comment on above: Result Comment: IG% - Immature Granulocytes (promyelocytes, myelocytes and metamyelocytes) > 1% indicates that a LEFT SHIFT is Present. Performed By: #### L 100.0100, L500.4050 #### [facility] [address] [place], [address] Lymphocytes/100 WBC (Bld) 28.8 % Normal 19-41 [facility] Comment on above: Performed By: #### L 100.0100, L500.4050 #### [facility] [address] [place], [address] MCH (RBC) [Entitic mass] 33.1 pg High 27.0-32.0 [facility] Comment on above: Performed By: #### L 100.0100, L500.4050 #### [facility] [address] [place], [address] MCHC (RBC) [Mass/Vol] 32.7 g/dL Normal 32-36 [facility] Comment on above: Performed By: #### L 100.0100, L500.4050 #### [facility] [address] [place], [address] MCV (RBC) [Entitic vol] 101.2 fL High 81-99 [facility] Comment on above: Performed By: #### L 100.0100, L500.4050 #### [facility] [address] [place], [address] Monocytes/100 WBC (Bld) 11.0 % High 0-10 [facility] Comment on above: Performed By: #### L 100.0100, L500.4050 #### [facility] [address] [place], [address] Neutrophils/100 WBC (Bld) 58.8 % Normal 47-70 [facility] Comment on above: Performed By: #### L 100.0100, L500.4050 #### [facility] [address] [place], [address] Nucleated RBC (Bld) [#/Vol] 0 10*3/uL Normal 0-5 [facility] Comment on above: Performed By: #### L 100.0100, L500.4050 #### [facility] [address] [place], [address] Platelet mean volume (Bld) [Entitic vol] 9.4 fL Normal 6.2-12.0 [facility] Comment on above: Performed By: #### L 100.0100, L500.4050 #### [facility] [address] [place], [address] Platelets (Bld) [#/Vol] 214 10*3/uL Normal 150-450 [facility] Comment on above: Performed By: #### L 100.0100, L500.4050 #### [facility] [address] [place], [address] RBC (Bld) [#/Vol] 3.38 10*6/uL Low 4.2-5.4 [facility] Comment on above: Performed By: #### L 100.0100, L500.4050 #### [facility] [address] [place], [address] RDW SD 54.8 fl High 35.1-43.9 [facility] Comment on above: Performed By: #### L 100.0100, L500.4050 #### [facility] [address] [place], [address] WBC (Bld) [#/Vol] 4.9 10*3/uL Normal 4.4-11.0 [facility] Comment on above: Performed By: #### L 100.0100, L500.4050 #### [facility] [address] [place], [address] Comprehensive Metabolic Prof [facility] 05-23-2024 Albumin [Mass/Vol] 3.4 g/dL Normal 3.2-5.0 [facility] Comment on above: Performed By: #### L 100.0100, L500.4050 #### [facility] [address] [place], [address] Albumin/Globulin [Mass ratio] 0.9 {ratio} Normal 0.9-2.4 [facility] Comment on above: Performed By: #### L 100.0100, L500.4050 #### [facility] [address] [place], [address] ALK P 108 U/L Normal 45-117 [facility] Comment on above: Performed By: #### L 100.0100, L500.4050 #### [facility] [address] [place], [address] ALT [Catalytic activity/Vol] 19 U/L Normal 13-56 [facility] Comment on above: Performed By: #### L 100.0100, L500.4050 #### [facility] [address] [place], [address] AST [Catalytic activity/Vol] 14 U/L Low 15-37 [facility] Comment on above: Performed By: #### L 100.0100, L500.4050 #### [facility] [address] [place], [address] Bilirubin [Mass/Vol] 0.60 mg/dL Normal 0.20-1.00 [facility] Comment on above: Result Comment: For patients on eltrombopag therapy, use of Dimension Mingus TBIL is not recommended. Performed By: #### L 100.0100, L500.4050 #### [facility] [address] [place], [address] BUN/CRE 14.1 RATIO Normal 10-20 [facility] Comment on above: Performed By: #### L 100.0100, L500.4050 #### [facility] [address] [place], [address] CA,Total 9.9 mg/dL Normal 8.5-10.1 [facility] Comment on above: Performed By: #### L 100.0100, L500.4050 #### [facility] [address] [place], [address] Chloride [Moles/Vol] 104 mmol/L Normal 98-107 [facility] Comment on above: Performed By: #### L 100.0100, L500.4050 #### [facility] [address] [place], [address] CO2 [Moles/Vol] 27.0 mmol/L Normal 21.0-32.0 [facility] Comment on above: Performed By: #### L 100.0100, L500.4050 #### [facility] [address] [place], [address] Creatinine [Mass/Vol] 0.99 mg/dL Normal 0.55-1.02 [facility] Comment on above: Result Comment: The validity of the calculated GFR GFRAA in patients over 70 years has not been determined. Clinical correlation is essential. Performed By: #### L 100.0100, L500.4050 #### [facility] [address] [place], [address] EST GFR - AA 69 mL/min Normal >60 [facility] Comment on above: Result Comment: Afri can Filipino GFR Calc Performed By: #### L 100.0100, L500.4050 #### [facility] [address] [place], [address] GAP 6 Normal 5-15 [facility] Comment on above: Performed By: #### L 100.0100, L500.4050 #### [facility] [address] [place], [address] GFR/1.73 sq M.predicted among non-blacks MDRD (S/P/Bld) [Vol rate/Area] 57 mL/min/{1.73_m2} Low >60 [facility] Comment on above: Result Comment: Non- GFR Calc Performed By: #### L 100.0100, L500.4050 #### [facility] [address] [place], [address] Globulin (S) [Mass/Vol] 3.6 g/dL Normal 2.2-4.2 [facility] Comment on above: Performed By: #### L 100.0100, L500.4050 #### [facility] [address] [place], [address] Glucose [Mass/Vol] 101 mg/dL Normal 74-106 [facility] Comment on above: Result Comment: Fast ing Glucose result from 100 to 125 mg/dL suggests IMPAIRED HOMEOSTASIS per A.D.A. criteria. Performed By: #### L 100.0100, L500.4050 #### [facility] [address] [place], [address] Potassium [Moles/Vol] 4.6 mmol/L Normal 3.5-5.1 [facility] Comment on above: Performed By: #### L 100.0100, L500.4050 #### [facility] [address] [place], [address] Sodium [Moles/Vol] 138 mmol/L Normal 136-145 [facility] Comment on above: Performed By: #### L 100.0100, L500.4050 #### [facility] [address] [place], [address] T PROT 7.0 g/dL Normal 6.4-8.2 [facility] Comment on above: Performed By: #### L 100.0100, L500.4050 #### [facility] [address] [place], [address] Urea nitrogen [Mass/Vol] 14 mg/dL Normal 7-18 [facility] Comment on above: Performed By: #### L 100.0100, L500.4050 #### [facility] [address] [place], [address] CBC W/Diff, Automatedon 11-2 -2023 Absolute Lymph 1.43 X10 3/uL Normal 0.83-4.51 [facility] Comment on above: Performed By: #### L 100.0100, L500.4050 #### [facility] [address] [place], [address] Absolute Neut 4.8 X10 3/uL Normal 2.0-7.7 [facility] Comment on above: Performed By: #### L 100.0100, L500.4050 #### [facility] [address] [place], [address] Basophils/100 WBC (Bld) 0.1 % Normal 0-1 [facility] Comment on above: Performed By: #### L 100.0100, L500.4050 #### [facility] [address] [place], [address] Eosinophils/100 WBC (Bld) 0.9 % Normal 0-5 [facility] Comment on above: Performed By: #### L 100.0100, L500.4050 #### [facility] [address] [place], [address] Erythrocyte distribution width (RBC) [Ratio] 15.5 % High 11.6-14.6 [facility] Comment on above: Performed By: #### L 100.0100, L500.4050 #### [facility] [address] [place], [address] Hematocrit (Bld) [Volume fraction] 36.5 % Low 37-47 [facility] Comment on above: Performed By: #### L 100.0100, L500.4050 #### [facility] [address] [place], [address] Hemoglobin (Bld) [Mass/Vol] 12.2 g/dL Normal 12.0-15.0 [facility] Comment on above: Performed By: #### L 100.0100, L500.4050 #### [facility] [address] [place], [address] IG% 0.400 Normal 0.0-0.9 [facility] Comment on above: Result Comment: IG% - Immature Granulocytes (promyelocytes, myelocytes and metamyelocytes) > 1% indicates that a LEFT SHIFT is Present. Performed By: #### L 100.0100, L500.4050 #### [facility] [address] [place], [address] Lymphocytes/100 WBC (Bld) 20.8 % Normal 19-41 [facility] Comment on above: Performed By: #### L 100.0100, L500.4050 #### [facility] [address] [place], [address] MCH (RBC) [Entitic mass] 32.8 pg High 27.0-32.0 [facility] Comment on above: Performed By: #### L 100.0100, L500.4050 #### [facility] [address] [place], [address] MCHC (RBC) [Mass/Vol] 33.4 g/dL Normal 32-36 [facility] Comment on above: Performed By: #### L 100.0100, L500.4050 #### [facility] [address] [place], [address] MCV (RBC) [Entitic vol] 98.1 fL Normal 81-99 [facility] Comment on above: Performed By: #### L 100.0100, L500.4050 #### [facility] [address] [place], [address] Monocytes/100 WBC (Bld) 7.5 % Normal 0-10 [facility] Comment on above: Performed By: #### L 100.0100, L500.4050 #### [facility] [address] [place], [address] Neutrophils/100 WBC (Bld) 70.3 % High 47-70 [facility] Comment on above: Performed By: #### L 100.0100, L500.4050 #### [facility] [address] [place], [address] Nucleated RBC (Bld) [#/Vol] 0 10*3/uL Normal 0-5 [facility] Comment on above: Performed By: #### L 100.0100, L500.4050 #### [facility] [address] [place], [address] Platelet mean volume (Bld) [Entitic vol] 10.0 fL Normal 6.2-12.0 [facility] Comment on above: Performed By: #### L 100.0100, L500.4050 #### [facility] [address] [place], [address] Platelets (Bld) [#/Vol] 227 10*3/uL Normal 150-450 [facility] Comment on above: Performed By: #### L 100.0100, L500.4050 #### [facility] [address] [place], [address] RBC (Bld) [#/Vol] 3.72 10*6/uL Low 4.2-5.4 [facility] Comment on above: Performed By: #### L 100.0100, L500.4050 #### [facility] [address] [place], [address] RDW SD 54.9 fl High 35.1-43.9 [facility] Comment on above: Performed By: #### L 100.0100, L500.4050 #### [facility] [address] [place], [address] WBC (Bld) [#/Vol] 6.9 10*3/uL Normal 4.4-11.0 [facility] Comment on above: Performed By: #### L 100.0100, L500.4050 #### [facility] [address] [place], [address] Comprehensive Metabolic Prof [facility] 03-21-2024 Albumin [Mass/Vol] 3.6 g/dL Normal 3.2-5.0 [facility] Comment on above: Performed By: #### L 100.0100, L500.4050 #### [facility] [address] [place], [address] Albumin/Globulin [Mass ratio] 1.0 {ratio} Normal 0.9-2.4 [facility] Comment on above: Performed By: #### L 100.0100, L500.4050 #### [facility] [address] [place], [address] ALK P 103 U/L Normal 45-117 [facility] Comment on above: Performed By: #### L 100.0100, L500.4050 #### [facility] [address] [place], [address] ALT [Catalytic activity/Vol] 15 U/L Normal 13-56 [facility] Comment on above: Performed By: #### L 100.0100, L500.4050 #### [facility] [address] [place], [address] AST [Catalytic activity/Vol] 15 U/L Normal 15-37 [facility] Comment on above: Performed By: #### L 100.0100, L500.4050 #### [facility] [address] [place], [address] Bilirubin [Mass/Vol] 0.60 mg/dL Normal 0.20-1.00 [facility] Comment on above: Result Comment: For patients on eltrombopag therapy, use of Dimension Mingus TBIL is not recommended. Performed By: #### L 100.0100, L500.4050 #### [facility] [address] [place], [address] BUN/CRE 19.3 RATIO Normal 10-20 [facility] Comment on above: Performed By: #### L 100.0100, L500.4050 #### [facility] [address] [place], [address] CA,Total 10.0 mg/dL Normal 8.5-10.1 [facility] Comment on above: Performed By: #### L 100.0100, L500.4050 #### [facility] [address] [place], [address] Chloride [Moles/Vol] 99 mmol/L Normal 98-107 [facility] Comment on above: Performed By: #### L 100.0100, L500.4050 #### [facility] [address] [place], [address] CO2 [Moles/Vol] 27.0 mmol/L Normal 21.0-32.0 [facility] Comment on above: Performed By: #### L 100.0100, L500.4050 #### [facility] [address] [place], [address] Creatinine [Mass/Vol] 0.88 mg/dL Normal 0.55-1.02 [facility] Comment on above: Result Comment: The validity of the calculated GFR GFRAA in patients over 70 years has not been determined. Clinical correlation is essential. Performed By: #### L 100.0100, L500.4050 #### [facility] [address] [place], [address] EST GFR - AA 79 mL/min Normal >60 [facility] Comment on above: Result Comment: Afri can Filipino GFR Calc Performed By: #### L 100.0100, L500.4050 #### [facility] [address] [place], [address] GAP 6 Normal 5-15 [facility] Comment on above: Performed By: #### L 100.0100, L500.4050 #### [facility] [address] [place], [address] GFR/1.73 sq M.predicted among non-blacks MDRD (S/P/Bld) [Vol rate/Area] 65 mL/min/{1.73_m2} Normal >60 [facility] Comment on above: Result Comment: Non- GFR Calc Performed By: #### L 100.0100, L500.4050 #### [facility] [address] [place], [address] Globulin (S) [Mass/Vol] 3.5 g/dL Normal 2.2-4.2 [facility] Comment on above: Performed By: #### L 100.0100, L500.4050 #### [facility] [address] [place], [address] Glucose [Mass/Vol] 100 mg/dL Normal 74-106 [facility] Comment on above: Result Comment: Fast ing Glucose result from 100 to 125 mg/dL suggests IMPAIRED HOMEOSTASIS per A.D.A. criteria. Performed By: #### L 100.0100, L500.4050 #### [facility] [address] [place], [address] Potassium [Moles/Vol] 4.1 mmol/L Normal 3.5-5.1 [facility] Comment on above: Performed By: #### L 100.0100, L500.4050 #### [facility] [address] [place], [address] Sodium [Moles/Vol] 132 mmol/L Low 136-145 [facility] Comment on above: Performed By: #### L 100.0100, L500.4050 #### [facility] [address] [place], [address] T PROT 7.1 g/dL Normal 6.4-8.2 [facility] Comment on above: Performed By: #### L 100.0100, L500.4050 #### [facility] [address] [place], [address] Urea nitrogen [Mass/Vol] 17 mg/dL Normal 7-18 [facility] Comment on above: Performed By: #### L 100.0100, L500.4050 #### [facility] [address] [place], [address] Quantiferon TB-Gold+on 01-13 QFT MITOGEN HAIDER > 10.00 Normal . [facility] Comment on above: Performed By: #### L 100.0100, L500.4050 #### [facility] [address] [place], [address] QFT NIL VALUE 0.03 IU/mL Normal . [facility] Comment on above: Performed By: #### L 100.0100, L500.4050 #### [facility] [address] [place], [address] QFT TB GOLD+ Comment Normal . [facility] Comment on above: Result Comment: Wilfrid [...] for the test. Performed By: #### L 100.0100, L500.4050 #### [facility] [address] [place], [address] QFT TB POS CRIT Negative Normal Negative [facility] Comment on above: Result Comment: No [...] interferon gamma. Chemiluminescence immunoassay methodology Performed at: [facility] [employer] [id number] [employer]: Eliseo Dyer PhD, Phone: [phone] Performed By: #### L 100.0100, L500.4050 #### [facility] [address] [place], [address] QFT TB1+ AG HAIDER 0.03 IU/mL Normal . [facility] Comment on above: Performed By: #### L 100.0100, L500.4050 #### [facility] [address] [place], [address] QFT TB2+ AG HAIDER 0.03 IU/mL Normal . [facility] Comment on above: Performed By: #### L 100.0100, L500.4050 #### [facility] [address] [place], [address] CBC W/Diff, Automatedon - 7-2023 Absolute Lymph 1.45 X10 3/uL Normal 0.83-4.51 [facility] Comment on above: Performed By: #### L 3890.6300, L3400.8000, L100.0100, L400.2011, L501.0900, L500.4050, L3890.6100, L3890.6200 #### [facility] [address] [place], [address] Absolute Neut 3.8 X10 3/uL Normal 2.0-7.7 [facility] Comment on above: Performed By: #### L 3890.6300, L3400.8000, L100.0100, L400.2011, L501.0900, L500.4050, L3890.6100, L3890.6200 #### [facility] [address] [place], [address] Basophils/100 WBC (Bld) 0.3 % Normal 0-1 [facility] Comment on above: Performed By: #### L 3890.6300, L3400.8000, L100.0100, L400.2011, L501.0900, L500.4050, L3890.6100, L3890.6200 #### [facility] [address] [place], [address] Eosinophils/100 WBC (Bld) 1.0 % Normal 0-5 [facility] Comment on above: Performed By: #### L 3890.6300, L3400.8000, L100.0100, L400.2011, L501.0900, L500.4050, L3890.6100, L3890.6200 #### [facility] [address] [place], [address] Erythrocyte distribution width (RBC) [Ratio] 14.6 % Normal 11.6-14.6 [facility] Comment on above: Performed By: #### L 3890.6300, L3400.8000, L100.0100, L400.2011, L501.0900, L500.4050, L3890.6100, L3890.6200 #### [facility] [address] [place], [address] Hematocrit (Bld) [Volume fraction] 37.8 % Normal 37-47 [facility] Comment on above: Performed By: #### L 3890.6300, L3400.8000, L100.0100, L400.2011, L501.0900, L500.4050, L3890.6100, L3890.6200 #### [facility] [address] [place], [address] Hemoglobin (Bld) [Mass/Vol] 12.2 g/dL Normal 12.0-15.0 [facility] Comment on above: Performed By: #### L 3890.6300, L3400.8000, L100.0100, L400.2011, L501.0900, L500.4050, L3890.6100, L3890.6200 #### [facility] [address] [place], [address] IG% 0.300 Normal 0.0-0.9 [facility] Comment on above: Result Comment: IG% - Immature Granulocytes (promyelocytes, myelocytes and metamyelocytes) > 1% indicates that a LEFT SHIFT is Present. Performed By: #### L 3890.6300, L3400.8000, L100.0100, L400.2011, L501.0900, L500.4050, L3890.6100, L3890.6200 #### [facility] [address] [place], [address] Lymphocytes/100 WBC (Bld) 24.9 % Normal 19-41 [facility] Comment on above: Performed By: #### L 3890.6300, L3400.8000, L100.0100, L400.2011, L501.0900, L500.4050, L3890.6100, L3890.6200 #### [facility] [address] [place], [address] MCH (RBC) [Entitic mass] 30.4 pg Normal 27.0-32.0 [facility] Comment on above: Performed By: #### L 3890.6300, L3400.8000, L100.0100, L400.2011, L501.0900, L500.4050, L3890.6100, L3890.6200 #### [facility] [address] [place], [address] MCHC (RBC) [Mass/Vol] 32.3 g/dL Normal 32-36 [facility] Comment on above: Performed By: #### L 3890.6300, L3400.8000, L100.0100, L400.2011, L501.0900, L500.4050, L3890.6100, L3890.6200 #### [facility] [address] [place], [address] MCV (RBC) [Entitic vol] 94.3 fL Normal 81-99 [facility] Comment on above: Performed By: #### L 3890.6300, L3400.8000, L100.0100, L400.2011, L501.0900, L500.4050, L3890.6100, L3890.6200 #### [facility] [address] [place], [address] Monocytes/100 WBC (Bld) 7.9 % Normal 0-10 [facility] Comment on above: Performed By: #### L 3890.6300, L3400.8000, L100.0100, L400.2011, L501.0900, L500.4050, L3890.6100, L3890.6200 #### [facility] [address] [place], [address] Neutrophils/100 WBC (Bld) 65.6 % Normal 47-70 [facility] Comment on above: Performed By: #### L 3890.6300, L3400.8000, L100.0100, L400.2010, L501.0900, L500.4050, L3890.6100, L3890.6200 #### [facility] [address] [place], [address] Nucleated RBC (Bld) [#/Vol] 0 10*3/uL Normal 0-5 [facility] Comment on above: Performed By: #### L 3890.6300, L3400.8000, L100.0100, L400.2010, L501.0900, L500.4050, L3890.6100, L3890.6200 #### [facility] [address] [place], [address] Platelet mean volume (Bld) [Entitic vol] 9.5 fL Normal 6.2-12.0 [facility] Comment on above: Performed By: #### L 3890.6300, L3400.8000, L100.0100, L400.2010, L501.0900, L500.4050, L3890.6100, L3890.6200 #### [facility] [address] [place], [address] Platelets (Bld) [#/Vol] 275 10*3/uL Normal 150-450 [facility] Comment on above: Performed By: #### L 3890.6300, L3400.8000, L100.0100, L400.2011, L501.0900, L500.4050, L3890.6100, L3890.6200 #### [facility] [address] [place], [address] RBC (Bld) [#/Vol] 4.01 10*6/uL Low 4.2-5.4 [facility] Comment on above: Performed By: #### L 3890.6300, L3400.8000, L100.0100, L400.2011, L501.0900, L500.4050, L3890.6100, L3890.6200 #### [facility] [address] [place], [address] RDW SD 51.1 fl High 35.1-43.9 [facility] Comment on above: Performed By: #### L 3890.6300, L3400.8000, L100.0100, L400.2011, L501.0900, L500.4050, L3890.6100, L3890.6200 #### [facility] [address] [place], [address] WBC (Bld) [#/Vol] 5.8 10*3/uL Normal 4.4-11.0 [facility] Comment on above: Performed By: #### L 3890.6300, L3400.8000, L100.0100, L400.2010, L501.0900, L500.4050, L3890.6100, L3890.6200 #### [facility] [address] [place], [address] Comprehensive Metabolic Prof [facility] 01-11-2024 Albumin [Mass/Vol] 3.7 g/dL Normal 3.2-5.0 [facility] Comment on above: Performed By: #### L 3890.6300, L3400.8000, L100.0100, L400.2011, L501.0900, L500.4050, L3890.6100, L3890.6200 #### [facility] [address] [place], [address] Albumin/Globulin [Mass ratio] 1.0 {ratio} Normal 0.9-2.4 [facility] Comment on above: Performed By: #### L 3890.6300, L3400.8000, L100.0100, L400.2011, L501.0900, L500.4050, L3890.6100, L3890.6200 #### [facility] [address] [place], [address] ALK P 102 U/L Normal 45-117 [facility] Comment on above: Performed By: #### L 3890.6300, L3400.8000, L100.0100, L400.2010, L501.0900, L500.4050, L3890.6100, L3890.6200 #### [facility] [address] [place], [address] ALT [Catalytic activity/Vol] 17 U/L Normal 13-56 [facility] Comment on above: Performed By: #### L 3890.6300, L3400.8000, L100.0100, L400.2010, L501.0900, L500.4050, L3890.6100, L3890.6200 #### [facility] [address] [place], [address] AST [Catalytic activity/Vol] 21 U/L Normal 15-37 [facility] Comment on above: Performed By: #### L 3890.6300, L3400.8000, L100.0100, L400.2011, L501.0900, L500.4050, L3890.6100, L3890.6200 #### [facility] [address] [place], [address] Bilirubin [Mass/Vol] 0.90 mg/dL Normal 0.20-1.00 [facility] Comment on above: Result Comment: For patients on eltrombopag therapy, use of Dimension Mingus TBIL is not recommended. Performed By: #### L 3890.6300, L3400.8000, L100.0100, L400.2011, L501.0900, L500.4050, L3890.6100, L3890.6200 #### [facility] [address] [place], [address] BUN/CRE 12.8 RATIO Normal 10-20 [facility] Comment on above: Performed By: #### L 3890.6300, L3400.8000, L100.0100, L400.2011, L501.0900, L500.4050, L3890.6100, L3890.6200 #### [facility] [address] [place], [address] CA,Total 10.2 mg/dL High 8.5-10.1 [facility] Comment on above: Performed By: #### L 3890.6300, L3400.8000, L100.0100, L400.2011, L501.0900, L500.4050, L3890.6100, L3890.6200 #### [facility] [address] [place], [address] Chloride [Moles/Vol] 98 mmol/L Normal 98-107 [facility] Comment on above: Performed By: #### L 3890.6300, L3400.8000, L100.0100, L400.2011, L501.0900, L500.4050, L3890.6100, L3890.6200 #### [facility] [address] [place], [address] CO2 [Moles/Vol] 25.0 mmol/L Normal 21.0-32.0 [facility] Comment on above: Performed By: #### L 3890.6300, L3400.8000, L100.0100, L400.2011, L501.0900, L500.4050, L3890.6100, L3890.6200 #### [facility] [address] [place], [address] Creatinine [Mass/Vol] 1.09 mg/dL High 0.55-1.02 [facility] Comment on above: Result Comment: The validity of the calculated GFR GFRAA in patients over 70 years has not been determined. Clinical correlation is essential. Performed By: #### L 3890.6300, L3400.8000, L100.0100, L400.2011, L501.0900, L500.4050, L3890.6100, L3890.6200 #### [facility] [address] [place], [address] EST GFR - AA 62 mL/min Normal >60 [facility] Comment on above: Result Comment: Afri can Filipino GFR Calc Performed By: #### L 3890.6300, L3400.8000, L100.0100, L400.2010, L501.0900, L500.4050, L3890.6100, L3890.6200 #### [facility] [address] [place], [address] GAP 9 Normal 5-15 [facility] Comment on above: Performed By: #### L 3890.6300, L3400.8000, L100.0100, L400.2010, L501.0900, L500.4050, L3890.6100, L3890.6200 #### [facility] [address] [place], [address] GFR/1.73 sq M.predicted among non-blacks MDRD (S/P/Bld) [Vol rate/Area] 51 mL/min/{1.73_m2} Low >60 [facility] Comment on above: Result Comment: Non- GFR Calc Performed By: #### L 3890.6300, L3400.8000, L100.0100, L400.2011, L501.0900, L500.4050, L3890.6100, L3890.6200 #### [facility] [address] [place], [address] Globulin (S) [Mass/Vol] 3.7 g/dL Normal 2.2-4.2 [facility] Comment on above: Performed By: #### L 3890.6300, L3400.8000, L100.0100, L400.2011, L501.0900, L500.4050, L3890.6100, L3890.6200 #### [facility] [address] [place], [address] Glucose [Mass/Vol] 105 mg/dL Normal 74-106 [facility] Comment on above: Result Comment: Fast ing Glucose result from 100 to 125 mg/dL suggests IMPAIRED HOMEOSTASIS per A.D.A. criteria. Performed By: #### L 3890.6300, L3400.8000, L100.0100, L400.2010, L501.0900, L500.4050, L3890.6100, L3890.6200 #### [facility] [address] [place], [address] Potassium [Moles/Vol] 3.9 mmol/L Normal 3.5-5.1 [facility] Comment on above: Performed By: #### L 3890.6300, L3400.8000, L100.0100, L400.2011, L501.0900, L500.4050, L3890.6100, L3890.6200 #### [facility] [address] [place], [address] Sodium [Moles/Vol] 132 mmol/L Low 136-145 [facility] Comment on above: Performed By: #### L 3890.6300, L3400.8000, L100.0100, L400.2011, L501.0900, L500.4050, L3890.6100, L3890.6200 #### [facility] [address] [place], [address] T PROT 7.4 g/dL Normal 6.4-8.2 [facility] Comment on above: Performed By: #### L 3890.6300, L3400.8000, L100.0100, L400.2011, L501.0900, L500.4050, L3890.6100, L3890.6200 #### [facility] [address] [place], [address] Urea nitrogen [Mass/Vol] 14 mg/dL Normal 7-18 [facility] Comment on above: Performed By: #### L 3890.6300, L3400.8000, L100.0100, L400.2010, L501.0900, L500.4050, L3890.6100, L3890.6200 #### [facility] [address] [place], [address] EXAGENon 01-11-2024 EXAGEN MAILED SPECIMEN Normal [facility] Comment on above: Performed By: #### L 801.1549 #### [facility] [address] [place], [place], [address] Hepatitis B Surface Antibody on 01-11-2024 HEP B Surf Ab Non-Reactive Normal [facility] Comment on above: Result Comment: Non Reactive: Inconsistent with immunity less than <10 mIU/mL Reactive: Consistent with immunity greater than or equal to 10 mIU/mL Performed By: #### L 3890.6300, L3400.8000, L100.0100, L400.2010, L501.0900, L500.4050, L3890.6100, L3890.6200 #### [facility] [address] [place], [address] Hepatitis B Surface Antigeno n 01-11-2024 HEP B Surf Ag Non-Reactive Normal Nonreactive [facility] Comment on above: Performed By: #### L 3890.6300, L3400.8000, L100.0100, L400.2011, L501.0900, L500.4050, L3890.6100, L3890.6200 #### [facility] [address] [place], [address] Hepatitis C Antibodyon 01-10 Hepatitis C AB Non-Reactive Normal Nonreactive [facility] Comment on above: Result Comment: Non Reactive: < 0.8 Equivocal: >/= 0.8 to < 1.0 Reactive: >/= 1.0 The CDC requires that a reactive/equivocal HCV antibody result be sent out for confirmation. HCV Quant by PCR testing. Performed By: #### L 3890.6300, L3400.8000, L100.0100, L400.2010, L501.0900, L500.4050, L3890.6100, L3890.6200 #### [facility] [address] [place], [address] Pelvis 1 or 2 Viewson 2023 Pelvis 1 or 2 Views [facility] [address] [place] [address] Pelvis 1 or 2 Views MR#: [id number] Acct: [id number] Name: FELISHA JOAQUIN Rep #: [id number] : 1945 F 78 From: Omid Villegas MD PCP: Dr. Trace Mendiola, DO Status: REG CLI Study: Pelvis 1 or 2 Views Date of Exam: 01/11/24 Exam# [id number] Ordering Dr: Love Gunter MD [id number] STUDY: X-RAY - PELVIS REASON FOR EXAM: [...] Trace Mendiola DO; Dr. Love Gunter MD Steel Manager: Signed Normal [facility] Protein+Creatinine Ratio,Uri neon 01-11-2024 PROT:CRE RATIO TNP Normal 0-200 [facility] Comment on above: Performed By: #### L 3890.6300, L3400.8000, L100.0100, L400.2010, L501.0900, L500.4050, L3890.6100, L3890.6200 #### [facility] [address] [place], [address] PROTEIN,UR.RAN. < 6.0 Normal <11.9 [facility] Comment on above: Performed By: #### L 3890.6300, L3400.8000, L100.0100, L400.2011, L501.0900, L500.4050, L3890.6100, L3890.6200 #### [facility] [address] [place], [address] UR CREAT 25.50 mg/dL Normal NO RANGE EST. [facility] Comment on above: Performed By: #### L 3890.6300, L3400.8000, L100.0100, L400.2011, L501.0900, L500.4050, L3890.6100, L3890.6200 #### [facility] [address] [place], [place], [id number] Urinalysis, Routine (Dipstic k)on 01-11-2024 BILIRUBIN URINE Negative Normal Negative [facility] Comment on above: Order Comment: CLEAN CATCH Performed By: #### L 3890.6300, L3400.8000, L100.0100, L400.2011, L501.0900, L500.4050, L3890.6100, L3890.6200 #### [facility] [address] [place], [place], [id number] Clarity (U) Clear Normal Clear [facility] Comment on above: Order Comment: CLEAN CATCH Performed By: #### L 3890.6300, L3400.8000, L100.0100, L400.2011, L501.0900, L500.4050, L3890.6100, L3890.6200 #### [facility] [address] [place], [place], [id number] Color (U) Straw Normal Yellow [facility] Comment on above: Order Comment: CLEAN CATCH Performed By: #### L 3890.6300, L3400.8000, L100.0100, L400.2011, L501.0900, L500.4050, L3890.6100, L3890.6200 #### [facility] [address] [place], [place], [id number] GLUCOSE, UR Normal Normal Normal [facility] Comment on above: Order Comment: CLEAN CATCH Performed By: #### L 3890.6300, L3400.8000, L100.0100, L400.2011, L501.0900, L500.4050, L3890.6100, L3890.6200 #### [facility] [address] [place], [place], [id number] KETONE UR Negative Normal Negative [facility] Comment on above: Order Comment: CLEAN CATCH Performed By: #### L 3890.6300, L3400.8000, L100.0100, L400.2011, L501.0900, L500.4050, L3890.6100, L3890.6200 #### [facility] [address] [place], [place], [id number] LEUK ESTERASE 25 /ul Abnormal Negative [facility] Comment on above: Order Comment: CLEAN CATCH Performed By: #### L 3890.6300, L3400.8000, L100.0100, L400.2011, L501.0900, L500.4050, L3890.6100, L3890.6200 #### [facility] [address] [place], [place], [phone] Nitrite Ql (U) Negative Normal Negative [facility] Comment on above: Order Comment: CLEAN CATCH Performed By: #### L 3890.6300, L3400.8000, L100.0100, L400.2011, L501.0900, L500.4050, L3890.6100, L3890.6200 #### [facility] [address] [place], [place], [id number] OCCULT BLOOD-UR Negative Normal Negative [facility] Comment on above: Order Comment: CLEAN CATCH Performed By: #### L 3890.6300, L3400.8000, L100.0100, L400.2011, L501.0900, L500.4050, L3890.6100, L3890.6200 #### [facility] [address] [place], [address] pH UR 6.5 Normal 5.0 - 8.0 [facility] Comment on above: Order Comment: CLEAN CATCH Performed By: #### L 3890.6300, L3400.8000, L100.0100, L400.2011, L501.0900, L500.4050, L3890.6100, L3890.6200 #### [facility] [facility] [address] [place], [address] PROT DIPSTX Negative Normal Negative [facility] Comment on above: Order Comment: CLEAN CATCH Performed By: #### L 3890.6300, L3400.8000, L100.0100, L400.2011, L501.0900, L500.4050, L3890.6100, L3890.6200 #### [facility] [address] [place], [address] SP.GR. DIPSTX 1.010 Normal 1.002-1.030 [facility] Comment on above: Order Comment: CLEAN CATCH Performed By: #### L 3890.6300, L3400.8000, L100.0100, L400.2011, L501.0900, L500.4050, L3890.6100, L3890.6200 #### [facility] [address] [place], [address] UROBILI Normal Normal Normal [facility] Comment on above: Order Comment: CLEAN CATCH Performed By: #### L 3890.6300, L3400.8000, L100.0100, L400.2011, L501.0900, L500.4050, L3890.6100, L3890.6200 #### [facility] [address] [place], [address] XR SHOULDER RIGHT 2+ VIEWSon 01-05-2024 XR SHOULDER RIGHT 2+ VIEWS Interpreted By: Indira Levy III, STUDY: XR SHOULDER RIGHT 2+ VIEWS; ; 01/05/2024 2:07 pm INDICATION: Signs/Symptoms:pain. 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 ACCESSION NUMBER(S): [id number] ORDERING CLINICIAN: INDIRA LEVY FINDINGS: Multiple views right shoulder: Status post right reverse shoulder arthroplasty for fracture appropriate placement of components no janice-implant fracture or lucency. Greater tuberosity does appear to be partially healed. IMPRESSION: Status post right reverse shoulder arthroplasty MACRO: None Signed by: Indira Levy III 01/05/2024 2:40 PM Dictation workstation: [id number] [facility] XR Shoulder - right 2 Viewso n 01-05-2024 Status post right reverse shoulder arthroplasty MACRO: None Signed by: Indira Levy III 01/05/2024 2:40 PM Dictation workstation: [id number] [facility] Interpreted By: Indira Levy III, STUDY: XR SHOULDER RIGHT 2+ VIEWS; ; 01/05/2024 2:07 pm INDICATION: Signs/Symptoms:pain. 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 ACCESSION NUMBER(S): [id number] ORDERING CLINICIAN: INDIRA LEVY FINDINGS: Multiple views right shoulder: Status post right reverse shoulder arthroplasty for fracture appropriate placement of components no janice-implant fracture or lucency. Greater tuberosity does appear to be partially healed. [facility] Indira Levy MD - 01/05/2024 Interpreted By: Indira Levy III, STUDY: XR SHOULDER RIGHT 2+ VIEWS; ; 01/05/2024 2:07 pm INDICATION: Signs/Symptoms:pain. 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 ACCESSION NUMBER(S): [id number] ORDERING CLINICIAN: INDIRA LEVY FINDINGS: Multiple views right shoulder: Status post right reverse shoulder arthroplasty for fracture appropriate placement of components no janice-implant fracture or lucency. Greater tuberosity does appear to be partially healed. IMPRESSION: Status post right reverse shoulder arthroplasty MACRO: None Signed by: Indira Levy III 01/05/2024 2:40 PM Dictation workstation: [id number] [facility] Work Phone: [facility] Work Phone: Radiology Study observation (narrative) [facility] Work Phone: XR WRIST RIGHT 3+ VIEWSon XR WRIST RIGHT 3+ VIEWS Interpreted By: Maryam Levy, STUDY: XR WRIST RIGHT 3+ VIEWS; ; 01/03/2024 2:09 pm INDICATION: Signs/Symptoms:pain. ,S66.811A Strain of other specified muscles, fascia and tendons at wrist and hand level, right hand, initial encounter COMPARISON: None. ACCESSION NUMBER(S): [id number] ORDERING CLINICIAN: MARYAM LUGO FINDINGS: AP lateral and oblique of the right wrist demonstrate distal ulna excision. 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 No shift in alignment IMPRESSION: As above MACRO: None Signed by: Maryam Levy 01/03/2024 2:28 PM Dictation workstation: [id number] [facility] XR Wrist - right 3 Viewson 0 01-03-2024 As above MACRO: None Signed by: Maryam Levy 01/03/2024 2:28 PM Dictation workstation: [id number] [facility] Interpreted By: Maryam Levy, STUDY: XR WRIST RIGHT 3+ VIEWS; ; 01/03/2024 2:09 pm INDICATION: Signs/Symptoms:pain. ,S66.811A Strain of other specified muscles, fascia and tendons at wrist and hand level, right hand, initial encounter COMPARISON: None. ACCESSION NUMBER(S): [id number] ORDERING CLINICIAN: MARYAM LUGO FINDINGS: AP lateral and oblique of the right wrist demonstrate distal ulna excision. 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 No shift in alignment Nora Siddiqi MD - 01/03/2024 Interpreted By: Maryam Levy, STUDY: XR WRIST RIGHT 3+ VIEWS; ; 01/03/2024 2:09 pm INDICATION: Signs/Symptoms:pain. ,S66.811A Strain of other specified muscles, fascia and tendons at wrist and hand level, right hand, initial encounter COMPARISON: None. ACCESSION NUMBER(S): [id number] ORDERING CLINICIAN: MARYAM LUGO FINDINGS: AP lateral and oblique of the right wrist demonstrate distal ulna excision. 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 No shift in alignment IMPRESSION: As above MACRO: None Signed by: Maryam Levy 01/03/2024 2:28 PM Dictation workstation: [id number] [facility] Work Phone: [facility] Work Phone: Radiology Study observation (narrative) [facility] Work Phone: XR Shoulder - right 2 Viewso n 11-13-2023 1. Right reverse tot al shoulder arthroplasty without hardware complication. Signed by: Lacy Montoya 11/13/2023 9:51 AM Dictation workstation: [id number] [facility] Interpreted By: Lacy Montoya, STUDY: Right shoulder 3 views. INDICATION: Signs/Symptoms:pain. COMPARISON: 09/24/2023. ACCESSION NUMBER(S): [id number] ORDERING CLINICIAN: INDIRA LEVY FINDINGS: Patient is status post right reverse total shoulder arthroplasty for proximal humeral fracture. Hardware is intact without perihardware fractures or lucencies. No malalignment. [facility] Lacy Montoay MD - 11/13/2023 Interpreted By: Lacy Montoya, STUDY: Right shoulder 3 views. INDICATION: Signs/Symptoms:pain. COMPARISON: 09/24/2023. ACCESSION NUMBER(S): [id number] ORDERING CLINICIAN: INDIRA LEVY FINDINGS: Patient is status post right reverse total shoulder arthroplasty for proximal humeral fracture. Hardware is intact without perihardware fractures or lucencies. No malalignment. IMPRESSION: 1. Right reverse total shoulder arthroplasty without hardware complication. Signed by: Lacy Montoya 11/13/2023 9:51 AM Dictation workstation: [id number] [facility] Work Phone: XR Shoulder - right 2 ViewsO rdered By: Lacy Montoya on 11-13-2023 [facility] Work Phone: XR SHOULDER RIGHT 2+ VIEWSon 11-12-2023 XR SHOULDER RIGHT 2+ VIEWS Interpreted By: Lacy Montoya, STUDY: Right shoulder 3 views. INDICATION: Signs/Symptoms:pain. COMPARISON: 09/24/2023. ACCESSION NUMBER(S): [id number] ORDERING CLINICIAN: INDIRA LEVY FINDINGS: Patient is status post right reverse total shoulder arthroplasty for proximal humeral fracture. Hardware is intact without perihardware fractures or lucencies. No malalignment. IMPRESSION: 1. Right reverse total shoulder arthroplasty without hardware complication. Signed by: Lacy Montoya 11/13/2023 9:51 AM Dictation workstation: [id number] [facility] XR Shoulder - right 2 Viewso n 11-12-2023 Radiology Study observation (narrative) [facility] Work Phone: FL FLUORO IMAGES NO CHARGEon 10-07-2023 FL FLUORO IMAGES NO CHARGE These images are not reportable by radiology and will not be interpreted by Radiologists. [facility] XR tomography Unspecified jeny dy regionon 10-07-2023 These images are not reportable by radiology and will not be interpreted by Radiologists. [facility] XR SHOULDER RIGHT 2+ VIEWSon 09-24-2023 XR SHOULDER RIGHT 2+ VIEWS Interpreted By: Indira Levy III, STUDY: XR SHOULDER RIGHT 2+ VIEWS; ; 09/24/2023 3:12 pm INDICATION: Signs/Symptoms:pain. COMPARISON: None. ACCESSION NUMBER(S): [id number] ORDERING CLINICIAN: INDIRA LEVY FINDINGS: Three views [...] Levy III 09/24/2023 4:18 PM Dictation workstation: [id number] [facility] Comment on above: Order Comment: Grash ey, axillary, scap Y XR Shoulder - right 2 Viewso n 09-24-2023 Status post right reverse shoulder arthroplasty for fracture MACRO: None Signed by: Indira Levy III 09/24/2023 4:18 PM Dictation workstation: [id number] [facility] Interpreted By: Indira Levy III, STUDY: XR SHOULDER RIGHT 2+ VIEWS; ; 09/24/2023 3:12 pm INDICATION: Signs/Symptoms:pain. COMPARISON: None. ACCESSION NUMBER(S): [id number] ORDERING CLINICIAN: INDIRA LEVY FINDINGS: Three views right shoulder: Status post right reverse shoulder arthroplasty for fracture no signs of hardware failure or loosening. Continued demonstration of mildly displaced tuberosities. Lytic or blastic lesions appreciated no Janice implant lucency. Moderate inferior tilt noted about the glenosphere similar in comparison to prior x-rays Indira Ibanez MD - 09/24/2023 Interpreted By: Indira Levy III, STUDY: XR SHOULDER RIGHT 2+ VIEWS; ; 09/24/2023 3:12 pm INDICATION: Signs/Symptoms:pain. COMPARISON: None. ACCESSION NUMBER(S): [id number] ORDERING CLINICIAN: INDIRA LEVY FINDINGS: Three views [...] Levy III 09/24/2023 4:18 PM Dictation workstation: [id number] [facility] Work Phone: [facility] Work Phone: Radiology Study observation (narrative) [facility] Work Phone: C reactive proteinon 024 CRP [Mass/Vol] 0.36 mg/dL Normal <1.00 [facility] Comment on above: Performed By: #### 1 988-5 #### PARKER ARGUETA ([id number]) [facility] ([facility]) [address] [place] [address] Comprehensive metabolic 2000 panelon 09-09-2023 Albumin BCP dye [Mass/Vol] 4.1 g/dL Normal 3.4-5.0 [facility] Comment on above: Performed By: #### 2 4323-8 #### PARKER ARGUETA ([id number]) [facility] ([facility]) [address] [place] [address] ALP [Catalytic activity/Vol] 113 U/L Normal 33-136 [facility] Comment on above: Performed By: #### 2 4323-8 #### PARKER ARGUETA ([id number]) [facility] ([facility]) [address] [place] [address] ALT With P-5'-P [Catalytic activity/Vol] 15 U/L Normal 7-45 [facility] Comment on above: Result Comment: Claribel ents treated with Sulfasalazine may generate falsely decreased results for ALT. Performed By: #### 2 4323-8 #### PARKER ARGUETA ([id number]) [facility] ([facility]) [address] [place] [address] Anion gap [Moles/Vol] 12 mmol/L Normal 10-20 [facility] Comment on above: Performed By: #### 2 432-8 #### PARKER ARGUETA ([id number]) [facility] ([facility]) [address] [place] [address] AST With P-5'-P [Catalytic activity/Vol] 22 U/L Normal 9-39 [facility] Comment on above: Performed By: #### 2 432-8 #### PARKER ARGUETA ([id number]) [facility] ([facility]) [address] [place] [address] Bilirubin [Mass/Vol] 0.4 mg/dL Normal 0.0-1.2 [facility] Comment on above: Performed By: #### 2 4323-8 #### PARKER ARGUETA ([id number]) [facility] ([facility]) [address] [place] [address] Calcium [Mass/Vol] 9.8 mg/dL Normal 8.6-10.3 [facility] Comment on above: Performed By: #### 2 432-8 #### PARKER ARGUETA ([id number]) [facility] ([facility]) [facility] [place] [address] Chloride [Moles/Vol] 103 mmol/L Normal 98-107 [facility] Comment on above: Performed By: #### 2 432-8 #### PARKER ARGUETA ([id number]) [facility] ([facility]) [address] [place] [address] CO2 [Moles/Vol] 25 mmol/L Normal 21-32 [facility] Comment on above: Performed By: #### 2 4323-8 #### PARKER ARGUETA ([id number]) [facility] ([facility]) [address] [place] [address] Creatinine [Mass/Vol] 0.85 mg/dL Normal 0.50-1.05 [facility] Comment on above: Performed By: #### 2 432-8 #### PARKER ARGUETA ([id number]) [facility] ([facility]) [address] [place] [address]2668 Glomerular filtration rate/1.73 sq M.predicted 69 mL/min/1.73m*2 Normal >60 [facility] Comment on above: Result Comment: Calc ulations of estimated GFR are performed using the 2020 CKD-EPI Study Refit equation without the race variable for the IDMS-Traceable creatinine methods. https://jasn.asnjournals.org/content/early//ASN.2020 806298 Performed By: #### 2 4323-8 #### PARKER ARGUETA ([id number]) [facility] ([facility]) [facility] [place] [address] Glucose [Mass/Vol] 105 mg/dL High 74-99 [facility] Comment on above: Performed By: #### 2 4323-8 #### PARKER ARGUETA ([id number]) [facility] ([facility]) [address] [place] [address] Potassium [Moles/Vol] 4.2 mmol/L Normal 3.5-5.3 [facility] Comment on above: Performed By: #### 2 4323-8 #### PARKER ARGUETA ([id number]) [facility] ([facility]) [address] [place] [address]761 Protein [Mass/Vol] 7.1 g/dL Normal 6.4-8.2 [facility] Comment on above: Performed By: #### 2 4323-8 #### PARKER ARGUETA ([id number]) [facility] ([facility]) [address] [place] [address]9944 Sodium [Moles/Vol] 136 mmol/L Normal 136-145 [facility] Comment on above: Performed By: #### 2 4323-8 #### PARKER ARGUETA ([id number]) [facility] ([facility]) [address] [place] [address]123 Urea nitrogen [Mass/Vol] 18 mg/dL Normal 6-23 [facility] Comment on above: Performed By: #### 2 4323-8 #### PARKER ARGUETA ([id number]) [facility] ([facility]) [address] [place] [address] Cyclic citrullinated peptide Ab.IgGon 09-09-2023 Cyclic citrullinated peptide IgG Qn 7 U/mL High <3 [facility] Comment on above: Order Comment: THE [...] By: #### 3 3935-8 #### KIMBERLEY Quintanilla ([id number]) [facility] ([facility]) [address] [place] [address] DNA double strand Abon 09-08 DNA double strand Ab Qn (S) [IU]/mL Normal <5.0 [facility] Comment on above: Result Comment: NEGA TIVE: <= 4 IU/ML EQUIVOCAL: 5- 9 IU/ML POSITIVE: >=10 IU/ML Performed By: #### 5 130-0 #### KIMBERLEY Quintanilla ([id number]) [facility] ([facility]) [id number] [place] [address] ESR Westergren method (Bld) [Velocity]on 09-09-2023 ESR (Bld) [Velocity] 59 mm/h High 0-30 [facility] Comment on above: Performed By: #### 4 537-7 #### CANALES ELLIE ([id number]) [facility] ([facility]) [address] [place] [address] MR WRIST RIGHT WO IV CONTRAS Ton 09-09-2023 MR WRIST RIGHT WO IV CONTRAST Interpreted By: Elyssa Tierney, STUDY: MRI of the right wrist without IV contrast; 09/09/2023 5:11 pm INDICATION: Signs/Symptoms:polyart hralgia. COMPARISON: Radiographs 09/03/2023. ACCESSION NUMBER(S): [id number] ORDERING CLINICIAN: MARYAM LUGO TECHNIQUE: MR imaging of the right wrist [...] joints. Fragmentation of the ulnar styloid and izybndhm-aq-ugzend flattening of the lunate probably posttraumatic. Severe [...] Elyssa Tierney 09/10/2023 11:40 AM Dictation workstation: [id number] [facility] Nuclear Abon 09-09-2023 Nuclear Ab Hep2 substrate Ql (S) Positive Abnormal Negative [facility] Comment on above: Result Comment: The Antinuclear Antibody (NOEMY) test was performed using indirect immunofluorescence assay with HEp-2 cells slide. Performed By: #### 5 9069-5 #### KIMBERLEY Quintanilla ([id number]) [facility] ([facility]) [address] [place] [address] 25666 Nuclear Ab Hep2 substrate Ql (S)on 09-09-2023 NOEMY PATTERN Homogeneous [facility] Comment on above: Performed By: #### 5 9069-5 #### KIMBERLEY Quintanilla ([id number]) [facility] ([facility]) [address] [place] [address] 20392 Nuclear Ab IF (S) [Titer] 1:160 [facility] Comment on above: Performed By: #### 5 9069-5 #### KIMBERLEY Quintanilla ([id number]) [facility] ([facility]) [address] [place] [address] 72183 Rheumatoid factoron 09-09-19 24 Rheumatoid factor Nephelometry Qn (S) 27 IU/mL High 0-15 [facility] Comment on above: Performed By: #### 1 5205-8 #### KIMBERLEY Quintanilla ([id number]) [facility] ([facility]) [address] [place] [address] 12343 Urateon 09-09-2023 Urate [Mass/Vol] 5.6 mg/dL Normal 2.3-6.7 [facility] Comment on above: Result Comment: Pat puncture immediately after or during the administration of Metamizole may lead to falsely low results. Testing should be performed immediately prior to Metamizole dosing. Performed By: #### 3 084-1 #### CANALES ELLIE ([id number]) [facility] ([facility]) [address] [place] [address] Urinalysis complete panel (U )on 09-09-2023 Appearance (U) Hazy Normal Clear [facility] Comment on above: Performed By: #### 2 4356-8 #### PARKER ARGUETA ([id number]) [facility] ([facility]) [address] [place] [address]08[address] Bilirubin (U) [Mass/Vol] Negative Normal NEGATIVE [facility] Comment on above: Performed By: #### 2 4356-8 #### PARKER ARGUETA ([id number]) [facility] ([facility]) [address] [place] [address] 75254 Color (U) Yellow Normal Straw, Yellow [facility] Comment on above: Performed By: #### 2 4356-8 #### PARKER ARGUETA ([id number]) [facility] ([facility]) [address] [place] [address] 81060 Glucose Auto test strip (U) [Mass/Vol] Negative Normal NEGATIVE [facility] Comment on above: Performed By: #### 2 4356-8 #### PARKER ARGUETA ([id number]) [facility] ([facility]) [address] [place] [address] 52112 Ketones (U) [Mass/Vol] Negative Normal NEGATIVE [facility] Comment on above: Performed By: #### 2 4356-8 #### PARKER ARGUETA ([id number]) [facility] ([facility]) [address] [place] [address] 28497 Leukocyte esterase Auto test strip Ql (U) Negative Normal NEGATIVE [facility] Comment on above: Performed By: #### 2 4356-8 #### PARKER ARGUETA ([id number]) [facility] ([facility]) [address] [place] [address] 32211 Nitrite Auto test strip Ql (U) Negative Normal NEGATIVE [facility] Comment on above: Performed By: #### 2 4356-8 #### PARKER ARGUETA ([id number]) [facility] ([facility]) [address] [place] [address] 73844 pH (U) 6.0 [pH] Normal 5.0, 5.5, 6.0, 6.5, 7.0, 7.5, 8.0 [facility] Comment on above: Performed By: #### 2 4356-8 #### PARKER ARGUETA ([id number]) [facility] ([facility]) [address] [place] [address] 19220 Protein (U) [Mass/Vol] Negative Normal NEGATIVE [facility] Comment on above: Performed By: #### 2 4356-8 #### PARKER ARGUETA ([id number]) [facility] ([facility]) [address] [place] [address] 84650 RBC (U) [#/Vol] Negative Normal NEGATIVE [facility] Comment on above: Performed By: #### 2 4356-8 #### PARKER ARGUETA ([id number]) [facility] ([facility]) [address] [place] [address] 32317 Specific gravity (U) [Rel density] 1.015 Normal 1.005-1.035 [facility] Comment on above: Performed By: #### 2 4356-8 #### PARKER ARGUETA ([id number]) [facility] ([facility]) [address] [place] [address] 84128 Urobilinogen (U) [Mass/Vol] mg/dL Normal <2.0 [facility] Comment on above: Performed By: #### 2 4356-8 #### PARKER ARGUETA ([id number]) [facility] ([facility]) [address] [place] [address] 20501 XR Wrist - right 3 Viewson 0 09-03-2023 As above MACRO: None Signed by: Maryam Levy 09/03/2023 3:47 PM Dictation workstation: [id number] Interpreted By: Maryam Levy, STUDY: XR WRIST RIGHT 3+ VIEWS; ; 09/03/2023 3:29 pm INDICATION: Signs/Symptoms:pain. COMPARISON: None. ACCESSION NUMBER(S): [id number] ORDERING CLINICIAN: MARYAM LEVY [place] FINDINGS: AP lateral and oblique of the right wrist demonstrate severe radiocarpal and ulnocarpal arthritis. There is dorsal translocation of the ulna on the radius. Findings most consistent with rheumatoid arthritis. [facility] Nora Abdullahi MD - 09/03/2023 Interpreted By: Maryam Levy, STUDY: XR WRIST RIGHT 3+ VIEWS; ; 09/03/2023 3:29 pm INDICATION: Signs/Symptoms:pain. COMPARISON: None. ACCESSION NUMBER(S): [id number] ORDERING CLINICIAN: MARYAM LUGO FINDINGS: AP lateral and oblique of the right wrist demonstrate severe radiocarpal and ulnocarpal arthritis. There is dorsal translocation of the ulna on the radius. Findings most consistent with rheumatoid arthritis. IMPRESSION: As above MACRO: None Signed by: Maryam Levy 09/03/2023 3:47 PM Dictation workstation: [id number] [facility] Work Phone: [facility] Work Phone: Radiology Study observation (narrative) [facility] Work Phone: XR SHOULDER RIGHT 2+ VIEWSon 08-31-2023 XR SHOULDER RIGHT 2+ VIEWS Interpreted By: Lacy Montoya, STUDY: Right shoulder 4 views. INDICATION: Signs/Symptoms:post op. COMPARISON: 08/27/2023. ACCESSION NUMBER(S): [id number] ORDERING CLINICIAN: INDIRA LEVY FINDINGS: Patient is status post right reverse total shoulder arthroplasty. Hardware is intact without perihardware fractures or lucencies. There is unchanged inferiorly positioned humeral head component with respect to the glenoid component when compared with the immediate postoperative radiographs No malalignment. IMPRESSION: 1. As above. Signed by: Lacy Montoya 09/04/2023 7:15 AM Dictation workstation: [id number] [facility] Comment on above: Order Comment: YRIS, Rico dietrich, Scap y, axillary XR Shoulder - right 2 Viewso n 08-27-2023 Status post reverse right shoulder arthroplasty for fracture MACRO: None Signed by: Indira Levy III 08/27/2023 4:45 PM Dictation workstation: [id number] [facility] Interpreted By: Indira Levy III, STUDY: XR SHOULDER RIGHT 2+ VIEWS; ; 08/27/2023 2:46 pm INDICATION: Signs/Symptoms:pain. COMPARISON: None. ACCESSION NUMBER(S): [id number] ORDERING CLINICIAN: INDIRA LEVY FINDINGS: Three views right shoulder: Status post right reverse shoulder arthroplasty for fracture. In comparison to immediate postoperative film appears to be increased inferior inclination. No Janice implant lucency. Appropriate position of greater tuberosity status post repair. [facility] Indira Levy MD - 08/27/2023 Interpreted By: Indira Levy III, STUDY: XR SHOULDER RIGHT 2+ VIEWS; ; 08/27/2023 2:46 pm INDICATION: Signs/Symptoms:pain. COMPARISON: None. ACCESSION NUMBER(S): [id number] ORDERING CLINICIAN: INDIRA LEVY FINDINGS: Three views right shoulder: Status post right reverse shoulder arthroplasty for fracture. In comparison to immediate postoperative film appears to be increased inferior inclination. No Janice implant lucency. Appropriate position of greater tuberosity status post repair. IMPRESSION: Status post reverse right shoulder arthroplasty for fracture MACRO: None Signed by: Indira Levy III 08/27/2023 4:45 PM Dictation workstation: [id number] [facility] Work Phone: [facility] Work Phone: Radiology Study observation (narrative) [facility] Work Phone: Basic metabolic 2000 panelon 08-11-2023 Anion gap [Moles/Vol] 11 mmol/L 10 - 2 0 mmol/L [facility] Calcium [Mass/Vol] 9.5 mg/dL 8.6 - 10. 3 mg/dL [facility] Chloride [Moles/Vol] 99 mmol/L 98 - 10 7 mmol/L [facility] CO2 [Moles/Vol] 27 mmol/L 21 - 32 mmol/L [facility] Creatinine [Mass/Vol] 0.93 mg/dL 0.50 - 1.05 mg/dL [facility] GFR/1.73 sq M.predicted among non-blacks MDRD (S/P/Bld) [Vol rate/Area] 62 mL/min/{1.73_m2} - PINF [facility] Comment on above: Calculations of parul mated GFR are performed using the 2020 CKD-EPI Study Refit equation without the race variable for the IDMS-Traceable creatinine methods. https://jasn.asnjournals.org/content//ASN.2020 695012 Glucose [Mass/Vol] 138 mg/dL High 74 - 99 mg/dL [facility] Interpretation and review of laboratory results Abnormal [facility] Potassium [Moles/Vol] 4.2 mmol/L 3.5 - 5.3 mmol/L [facility] Sodium [Moles/Vol] 133 mmol/L Low 136 - 145 mmol/L [facility] Urea nitrogen [Mass/Vol] 16 mg/dL 6 - 23 mg/dL [facility] CBC panel Auto (Bld)on 08-10 Erythrocyte distribution width (RBC) [Ratio] 12.6 % 11.5 - 14.5 % [facility] Hematocrit (Bld) [Volume fraction] 32.6 % Low 36.0 - 46.0 % [facility] Hemoglobin (Bld) [Mass/Vol] 10.8 g/dL Low 12.0 - 16.0 g/dL [facility] Interpretation and review of laboratory results Abnormal [facility] MCH (RBC) [Entitic mass] 31.9 pg 26.0 - 34.0 pg [facility] MCHC (RBC) [Mass/Vol] 33.1 g/dL 32.0 - 36.0 g/dL [facility] MCV (RBC) [Entitic vol] 96 fL 80 - 100 fL [facility] Nucleated RBC/100 WBC (Bld) [Ratio] 0.0 % [facility] Platelets (Bld) [#/Vol] 244 10*3/uL [facility] RBC (Bld) [#/Vol] 3.39 10*6/uL Low [facility] WBC (Bld) [#/Vol] 10.0 10*3/uL [facility] XR Shoulder - right 2 Viewso n 08-10-2023 Postoperative change s of reverse right shoulder arthroplasty. MACRO: None Signed by: Farnaz Vargas 08/10/2023 4:36 PM Dictation workstation: [id number] ROSETTAODAL Interpreted By: Farnaz Vargas, STUDY: XR SHOULDER RIGHT 2+ VIEWS; ; 08/10/2023 3:23 pm INDICATION: Signs/Symptoms:post op in pacu grashey and y views. COMPARISON: 07/02/2023 ACCESSION NUMBER(S): [id number] ORDERING CLINICIAN: INDIRA LEVY FINDINGS: Reverse right [...] and y views. COMPARISON: 07/02/2023 ACCESSION NUMBER(S): [id number] ORDERING CLINICIAN: INDIRA LEVY FINDINGS: Reverse right shoulder arthroplasty. Residual comminuted bone fragments along the lateral aspect of the humeral component of the prosthesis. Gas and swelling in the joint and soft tissues compatible with postoperative change. IMPRESSION: Postoperative changes of reverse right shoulder arthroplasty. MACRO: None Signed by: Farnaz Vargas 08/10/2023 4:36 PM Dictation workstation: [id number] [facility] Work Phone: Radiology Study observation (narrative) [facility] Work Phone: XR Shoulder - right 2 ViewsO rdered By: Farnaz Vargas on 08-10-2023 [facility] Work Phone: CT Shoulder - right WO contr julian [...] Arden Christopher 07/29/2023 3:43 PM Dictation workstation: [id number] MMODAL Interpreted By: Arden Christopher, STUDY: CT SHOULDER RIGHT WO IV CONTRAST; ; 07/29/2023 1:24 pm INDICATION: Signs/Symptoms:surgica l planning. COMPARISON: Previous plain film examinations, the latest which dates 07/02/2023. ACCESSION NUMBER(S): [id number] ORDERING CLINICIAN: INDIRA LEVY TECHNIQUE: Contiguous axial [...] IV CONTRAST; ; 07/29/2023 1:24 pm INDICATION: Signs/Symptoms:surgica l planning. COMPARISON: Previous plain film examinations, the latest which dates 07/02/2023. ACCESSION NUMBER(S): [id number] ORDERING CLINICIAN: INDIRA LEVY TECHNIQUE: Contiguous axial [...] Arden Christopher 07/29/2023 3:43 PM Dictation workstation: [id number] [facility] Work Phone: Radiology Study observation (narrative) [facility] Work Phone: CT Shoulder - right WO contr astOrdered By: Kirti Christopher on 07-29-2023 [facility] Work Phone: Comprehensive metabolic 2000 panelon 07-14-2023 Albumin [Mass/Vol] 4.3 g/dL 3.9 - 4.9 g/dL [facility] ALP [Catalytic activity/Vol] 121 U/L 34 - 123 U/L [facility] ALT [Catalytic activity/Vol] 13 U/L 7 - 38 U/L [facility] Anion gap [Moles/Vol] 12 mmol/L 9 - 18 mmol/L [facility] AST [Catalytic activity/Vol] 19 U/L 13 - 35 U/L [facility] Bilirubin [Mass/Vol] 0.4 mg/dL 0.2 - 1 .3 mg/dL [facility] Calcium [Mass/Vol] 10.2 mg/dL 8.5 - 10. 2 mg/dL [facility] Chloride [Moles/Vol] 100 mmol/L 97 - 10 5 mmol/L [facility] CO2 [Moles/Vol] 24 mmol/L 22 - 30 mmol/L [facility] Creatinine [Mass/Vol] 0.76 mg/dL 0.58 - 0.96 mg/dL [facility] Estimated Glomerular Filtration Rate 79 mL/min/1.73m >=60 mL/min/1.73m [facility] Glucose [Mass/Vol] 92 mg/dL 74 - 99 mg/dL [facility] Potassium [Moles/Vol] 4.5 mmol/L 3.7 - 5.1 mmol/L [facility] Protein [Mass/Vol] 7.1 g/dL 6.3 - 8.0 g/dL [facility] Sodium [Moles/Vol] 136 mmol/L 136 - 144 mmol/L [facility] Urea nitrogen [Mass/Vol] 14 mg/dL 7 - 21 mg/dL [facility] HbA1c (Bld)on 07-14-2023 Average glucose Estimated from glycated hemoglobin (Bld) [Mass/Vol] 91 mg/dL [facility] HbA1c (Bld) [Mass fraction] 4.8 % 4.3 - 5.6 % [facility] CBC W Auto Differential pane l (Bld)on 07-13-2023 Basophils (Bld) [#/Vol] 0.03 10*3/uL <0.11 k/uL [facility] Basophils/100 WBC (Bld) 0.4 % [facility] Differential cell count method Nom (Bld) Auto [facility] Eosinophils (Bld) [#/Vol] 0.12 10*3/uL <0.46 k/uL [facility] Eosinophils/100 WBC (Bld) 1.6 % [facility] Erythrocyte distribution width (RBC) [Ratio] 13.5 % 11.5 - 15.0 % [facility] Hematocrit (Bld) [Volume fraction] 37.0 % 36.0 - 46.0 % [facility] Hemoglobin (Bld) [Mass/Vol] 11.7 g/dL 11.5 - 15.5 g/dL [facility] Immature granulocytes (Bld) [#/Vol] <0.10 k/uL [facility] Immature granulocytes/100 WBC (Bld) 0.3 % [facility] Lymphocytes (Bld) [#/Vol] 1.94 10*3/uL 1.00 - 4.00 k/uL [facility] Lymphocytes/100 WBC (Bld) 26.6 % [facility] MCH (RBC) [Entitic mass] 31.7 pg 26.0 - 34.0 pg [facility] MCHC (RBC) [Mass/Vol] 31.6 g/dL 30.5 - 36.0 g/dL [facility] MCV (RBC) [Entitic vol] 100.3 fL High 80.0 - 100.0 fL [facility] Monocytes (Bld) [#/Vol] 0.56 10*3/uL <0.87 k/uL [facility] Monocytes/100 WBC (Bld) 7.7 % [facility] Neutrophils (Bld) [#/Vol] 4.62 10*3/uL 1.45 - 7.50 k/uL [facility] Neutrophils/100 WBC (Bld) 63.4 % [facility] Nucleated RBC (Bld) [#/Vol] <0.01 k/uL [facility] Nucleated RBC/100 WBC (Bld) [Ratio] 0.0 /100 WBC [facility] Platelet mean volume (Bld) [Entitic vol] 10.0 fL 9.0 - 12.7 fL [facility] Platelets (Bld) [#/Vol] 248 10*3/uL 150 - 400 k/uL [facility] RBC (Bld) [#/Vol] 3.69 10*6/uL Low 3.90 - 5.2 0 m/uL [facility] WBC (Bld) [#/Vol] 7.29 10*3/uL 3.70 - 11. 00 k/uL [facility] XR Shoulder - right 2 Viewso n 07-03-2023 Subacute healing proximal humeral fracture deformity without change in alignment. MACRO: None Signed by: Aldair Fatima 07/03/2023 9:13 AM Dictation workstation: [id number] MMODAL Interpreted By: Aldair Fatima, STUDY: XR SHOULDER RIGHT 2+ VIEWS; ; 07/02/2023 9:55 am INDICATION: Signs/Symptoms:PAIN. COMPARISON: 06/18/2023. ACCESSION NUMBER(S): [id number] ORDERING CLINICIAN: SAM GRACIA FINDINGS: Right shoulder, three views Redemonstration of a comminuted fracture through the proximal humerus with moderate displacement and angulation. There is increased callus formation and sclerosis. There is no dislocation. [facility] MMODAL Aldair Fatima MD - 07/03/2023 Interpreted By: Aldair Fatima STUDY: XR SHOULDER RIGHT 2+ VIEWS; ; 07/02/2023 9:55 am INDICATION: Signs/Symptoms:PAIN. COMPARISON: 06/18/2023. ACCESSION NUMBER(S): [id number] ORDERING CLINICIAN: SAM GRACIA FINDINGS: Right shoulder, three views Redemonstration of a comminuted fracture through the proximal humerus with moderate displacement and angulation. There is increased callus formation and sclerosis. There is no dislocation. IMPRESSION: Subacute healing proximal humeral fracture deformity without change in alignment. MACRO: None Signed by: Aldair Fatima 07/03/2023 9:13 AM Dictation workstation: [id number] [facility] Work Phone: XR Shoulder - right 2 ViewsO rdered By: Aldair Fatima on 07-03-2023 [facility] Work Phone: XR SHOULDER RIGHT 2+ VIEWSon 07-02-2023 XR SHOULDER RIGHT 2+ VIEWS Interpreted By: Aldair Fatima, STUDY: XR SHOULDER RIGHT 2+ VIEWS; ; 07/02/2023 9:55 am INDICATION: Signs/Symptoms:PAIN. COMPARISON: 06/18/2023. ACCESSION NUMBER(S): [id number] ORDERING CLINICIAN: SAM GRACIA FINDINGS: Right shoulder, three views Redemonstration of a comminuted fracture through the proximal humerus with moderate displacement and angulation. There is increased callus formation and sclerosis. There is no dislocation. IMPRESSION: Subacute healing proximal humeral fracture deformity without change in alignment. MACRO: None Signed by: Aldair Fatima 07/03/2023 9:13 AM Dictation workstation: [id number] [facility] XR Shoulder - right 2 Viewso n 07-02-2023 Radiology Study observation (narrative) [facility] Work Phone: No Panel Informationon 06-19 Suggested slight amount of increased displacement of the surgical neck right greater tuberosity fracture when compared to prior study. Signed by: Jose Russell 06/19/2023 9:36 AM Dictation workstation: [id number] MMODAL Interpreted By: Jose Madrid, STUDY: XR SHOULDER RIGHT 2+ VIEWS; XR HUMERUS RIGHT INDICATION: Signs/Symptoms:S/P FRACTURE. COMPARISON: June 07, 2023 ACCESSION NUMBER(S): [id number]; [id number] ORDERING CLINICIAN: SAM GRACIA FINDINGS: Surgical neck [...] FRACTURE. COMPARISON: June 07, 2023 ACCESSION NUMBER(S): [id number]; [id number] ORDERING CLINICIAN: SAM GRACIA FINDINGS: Surgical neck [...] Jose Russell 06/19/2023 9:36 AM Dictation workstation: [id number] [facility] Work Phone: No Panel InformationOrdered By: Jose Russell on 06-19-2023 [facility] Work Phone: XR HUMERUS RIGHTon XR HUMERUS RIGHT Interpreted By: Jose Madrid, STUDY: XR SHOULDER RIGHT 2+ VIEWS; XR HUMERUS RIGHT INDICATION: Signs/Symptoms:S/P FRACTURE. COMPARISON: June 07, 2023 ACCESSION NUMBER(S): [id number]; [id number] ORDERING CLINICIAN: SAM GRACIA FINDINGS: Surgical neck [...] Jose Russell 06/19/2023 9:36 AM Dictation workstation: [id number] [facility] XR Humerus - right Viewson 0 06-18-2023 Radiology Study observation (narrative) [facility] Work Phone: XR SHOULDER RIGHT 2+ VIEWSon 06-18-2023 XR SHOULDER RIGHT 2+ VIEWS Interpreted By: Jose Russell, STUDY: XR SHOULDER RIGHT 2+ VIEWS; XR HUMERUS RIGHT INDICATION: Signs/Symptoms:S/P FRACTURE. COMPARISON: June 07, 2023 ACCESSION NUMBER(S): [id number]; [id number] ORDERING CLINICIAN: SAM GRACIA FINDINGS: Surgical neck [...] Jose Russell 06/19/2023 9:36 AM Dictation workstation: [id number] [facility] Comment on above: Order Comment: Trans -scapular lateral XR Shoulder - right 2 Viewso n 06-18-2023 Radiology Study observation (narrative) [facility] Work Phone: XR Humerus - right Viewson 0 06-11-2023 Similar appearing offset fracture of the proximal humerus. MACRO: None Signed by: Jose Armando Pearce 06/11/2023 10:25 PM Dictation workstation: [id number] MM[facility]AL Interpreted By: Jose Armando Pearce, STUDY: XR HUMERUS RIGHT; ; 06/10/2023 2:11 pm INDICATION: Signs/Symptoms:S/P FX. COMPARISON: 06/07/2023 ACCESSION NUMBER(S): [id number] ORDERING CLINICIAN: SAM GRACIA FINDINGS: Redemonstration offset fracture of the proximal humerus which appears to involve both the humeral neck and greater tuberosity. [facility] MMODAL Jose Armando Pearce MD - 06/11/2023 Interpreted By: Jose Armando Pearce, STUDY: XR HUMERUS RIGHT; ; 06/10/2023 2:11 pm INDICATION: Signs/Symptoms:S/P FX. COMPARISON: 06/07/2023 ACCESSION NUMBER(S): [id number] ORDERING CLINICIAN: SAM GRACIA FINDINGS: Redemonstration offset fracture of the proximal humerus which appears to involve both the humeral neck and greater tuberosity. IMPRESSION: Similar appearing offset fracture of the proximal humerus. MACRO: None Signed by: Jose Armando Pearce 06/11/2023 10:25 PM Dictation workstation: [id number] [facility] Work Phone: XR Humerus - right ViewsOrde red By: Jose Armando Pearce on 06-11-2023 [facility] Work Phone: XR HUMERUS RIGHTon 4 XR HUMERUS RIGHT Interpreted By: Jose Armando Pearce, STUDY: XR HUMERUS RIGHT; ; 06/10/2023 2:11 pm INDICATION: Signs/Symptoms:S/P FX. COMPARISON: 06/07/2023 ACCESSION NUMBER(S): [id number] ORDERING CLINICIAN: SAM GRACIA FINDINGS: Redemonstration offset fracture of the proximal humerus which appears to involve both the humeral neck and greater tuberosity. IMPRESSION: Similar appearing offset fracture of the proximal humerus. MACRO: None Signed by: Jose Armando Pearce 06/11/2023 10:25 PM Dictation workstation: [id number] [facility] XR Humerus - right Viewson 0 06-10-2023 Radiology Study observation (narrative) [facility] Work Phone: CT HEAD WO IV CONTRASTon CT HEAD WO IV CONTRAST Interpreted By: Kai Khanna, STUDY: CT HEAD WO IV CONTRAST; 06/07/2023 8:05 pm INDICATION: Signs/Symptoms:fall. COMPARISON: None. ACCESSION NUMBER(S): [id number] ORDERING CLINICIAN: RICK NÚÑEZ TECHNIQUE: Noncontrast axial [...] Kai Khanna 06/07/2023 8:16 PM Dictation workstation: [id number] [facility] XR HUMERUS RIGHTon XR HUMERUS RIGHT Interpreted By: Kai Khanna, STUDY: XR HUMERUS RIGHT; XR SHOULDER RIGHT 2+ VIEWS; ; 06/07/2023 7:55 pm INDICATION: Signs/Symptoms:fall, pain. COMPARISON: None. ACCESSION NUMBER(S): [id number]; [id number] ORDERING CLINICIAN: RICK NÚÑEZ FINDINGS: Right humerus [...] Kai Khanna 06/07/2023 8:18 PM Dictation workstation: [address] XR KNEE LEFT 4+ VIEWSon 05-27 XR KNEE LEFT 4+ VIEWS Interpreted By: Kai Khanna, STUDY: XR KNEE LEFT 4+ VIEWS; ; 06/07/2023 7:55 pm INDICATION: Signs/Symptoms:fall, pain. COMPARISON: None. ACCESSION NUMBER(S): [id number] ORDERING CLINICIAN: RICK NÚÑEZ FINDINGS: Left knee arthroplasty changes. Demineralization. No evidence of acute fracture. No malalignment. IMPRESSION: No evidence of acute fracture of the left knee. MACRO: None Signed by: Kai Khanna 06/07/2023 8:19 PM Dictation workstation: [address] XR SHOULDER RIGHT 2+ VIEWSon 06-07-2023 XR SHOULDER RIGHT 2+ VIEWS Interpreted By: Kai Khanna, STUDY: XR HUMERUS RIGHT; XR SHOULDER RIGHT 2+ VIEWS; ; 06/07/2023 7:55 pm INDICATION: Signs/Symptoms:fall, pain. COMPARISON: None. ACCESSION NUMBER(S): [id number]; [id number] ORDERING CLINICIAN: RICK NÚÑEZ FINDINGS: Right humerus [...] Kai Khanna 06/07/2023 8:18 PM Dictation workstation: [address] [facility] Breast Screeningon 2022 * * *Final Report* * * DATE OF EXAM: Mar 29 2023 10:13AM [facility] 0581 - [place] SCREENING / PROCEDURE REASON: Screening mammogram for breast cancer * * * * Physician Interpretation * * * * RESULT: #[id number] - [place] SCREENING BILATERAL DIGITAL SCREENING MAMMOGRAM [...] dated: 03/12/2022 mammogram and 12/09/2018 mammogram - [facility]. There are scattered areas of fibroglandular density. There is an oval asymmetry in the right breast middle depth lateral region seen on the craniocaudal view only. No other significant masses, calcifications, or other findings are seen in either breast. DIVISION OF RADIOLOGY Provider, [facility] - 03/30/2023 * * *Final Report* * * DATE OF EXAM: Mar 29 2023 10:13AM [facility] 0581 - [facility] SCREENING / PROCEDURE REASON: Screening mammogram for breast cancer * * * * Physician Interpretation * * * * RESULT: #[id number] - [place] SCREENING BILATERAL DIGITAL SCREENING MAMMOGRAM [...] dated: 03/12/2022 mammogram and 12/09/2018 mammogram - [facility]. There are scattered areas of fibroglandular density. [...] possible ultrasound are recommended. Sacha muller/araceli:03/30/2023 10:53:50 Small Kick Press Operator(s): RT Benita(R)(M), [facility] letter sent: Additional Imaging Needed Mammogram BI-RADS: 0 Incomplete: needs additional imaging evaluation If this report indicates you need additional imaging, and it has NOT yet been performed, please call , to schedule. We sincerely thank you for choosing the [facility] for your breast imaging needs. Multiple national specialty organizations have released breast cancer screening guidelines for women at average risk for developing breast cancer - guidelines that are based on both evidence and opinion, yet differ on when to start and how often to screen for breast cancer. With representation from Breast Imaging, Internal Medicine, Women's Health, Family Medicine, and Medical/Surgical Oncology, the [facility] has carefully reviewed the data and reached [...] their providers when to stop screening mammograms. Steel Manager: Araceli Transcribe Date/Time: Mar 29 2023 9:54A Dictated by: SACHA ACEVEDO MD This examination was interpreted and the report reviewed and electronically signed by: SACHA ACEVEDO MD on Mar 30 2023 10:53AM [facility] Breast ScreeningOrdered B y: [facility] Provider on 03-30-2023 [facility] Breast Screeningon 2022 [facility] 12 Leadon 12-01-2022 Atrial Rate [facility] P Corona [facility] P-R Interval [facility] Q-T Interval [facility] Q-T Interval (corrected) [facility] QRS Duration [facility] QTC Calculation (Bezet) [facility] R [facility] T Corona [facility] Ventricular Rate [facility] [place] SCREENINGon 03-12-2022 [facility] CBC W Auto Differential pane l (Bld)on 02-16-2022 Basophils (Bld) [#/Vol] <0.11 k/uL [facility] Basophils/100 WBC (Bld) 0.1 % [facility] Differential cell count method Nom (Bld) Auto [facility] Eosinophils (Bld) [#/Vol] 0.20 10*3/uL <0.46 k/uL [facility] Eosinophils/100 WBC (Bld) 2.7 % [facility] Erythrocyte distribution width (RBC) [Ratio] 13.7 % 11.5 - 15.0 % [facility] Hematocrit (Bld) [Volume fraction] 38.5 % 36.0 - 46.0 % [facility] Hemoglobin (Bld) [Mass/Vol] 12.8 g/dL 11.5 - 15.5 g/dL [facility] Immature granulocytes (Bld) [#/Vol] <0.10 k/uL [facility] Immature granulocytes/100 WBC (Bld) 0.3 % [facility] Lymphocytes (Bld) [#/Vol] 1.47 10*3/uL 1.00 - 4.00 k/uL [facility] Lymphocytes/100 WBC (Bld) 20.0 % [facility] MCH (RBC) [Entitic mass] 31.9 pg 26.0 - 34.0 pg [facility] MCHC (RBC) [Mass/Vol] 33.2 g/dL 30.5 - 36.0 g/dL [facility] MCV (RBC) [Entitic vol] 96.0 fL 80.0 - 100.0 fL [facility] Monocytes (Bld) [#/Vol] 0.50 10*3/uL <0.87 k/uL [facility] Monocytes/100 WBC (Bld) 6.8 % [facility] Neutrophils (Bld) [#/Vol] 5.15 10*3/uL 1.45 - 7.50 k/uL [facility] Neutrophils/100 WBC (Bld) 70.1 % [facility] Nucleated RBC (Bld) [#/Vol] <0.01 k/uL [facility] Nucleated RBC/100 WBC (Bld) [Ratio] 0.0 /100 WBC [facility] Platelet mean volume (Bld) [Entitic vol] 9.7 fL 9.0 - 12.7 fL [facility] Platelets (Bld) [#/Vol] 245 10*3/uL 150 - 400 k/uL [facility] RBC (Bld) [#/Vol] 4.01 10*6/uL 3.90 - 5.2 0 m/uL [facility] WBC (Bld) [#/Vol] 7.35 10*3/uL 3.70 - 11. 00 k/uL [facility] ECG 12 leadon 11-24-2021 Atrial Rate [facility] P Corona [facility] P-R Interval [facility] Q-T Interval [facility] Q-T Interval (corrected) [facility] QRS Duration [facility] QTC Calculation (Bezet) [facility] R [facility] T Corona [facility] Ventricular Rate [facility] History and Physical - Surgi rafal Update [...] they contract COVID-19 what the risks are. Signatures/Attestation : Note Completion: Attending Provider Inpatient Certification StatementObservation patient/other outpatient visits Electronic Signatures: Yaya Juan) (Signed 18-Jan-2020 07:44) Authored: History & Physical Reviewed, Consent, Note Completion Last Updated: 18-Jan-2020 07:44 by Yaya Juan) [facility] Preop Checkliston 01-18-2020 Preop Checklist Preop Checklist: Preop Checklist: Arrival [id number] Arrival Time07:13 Procedure Typeleft cataract Temperature C36.5 degrees C Temperature F97.8 degrees F Heart Rate70 beats per minute Respiratory Rate17 breath per minute Blood Pressure Rjdsowxj000 mm/Hg Blood Pressure Rvsupmbvu99 mm/Hg NPO [id number] 22:00 ID Band Onyes Allergy Bandno known [...] Preop Checklist Last Updated: 18-Jan-2020 07:32 by rAuna Wagner (HARI) Normal [facility] CORONAVIRUS 2019, SCREEN ASY MPTOMATICon 01-17-2020 CORONAVIRUS 2019,PCR NOT DETECTED Normal Not Detected [facility] Comment on above: Result Comment: This [...] patient management decisions. Fact sheet for providers: https://www.fda.gov/media/845456/download Fact sheet for patients: https://www.fda.gov/media/763926/download This test has received FDA Emergency Use Authorization (EUA) and has been verified by [facility] ([facility]). This test is only authorized for the duration of time that circumstances exist to justify the authorization of the emergency use of in vitro diagnostic tests for the detection of SARS-CoV-2 virus and/or diagnosis of COVID-19 infection under section 564(b)(1) of the Act, 21 U.S.C. 360bbb-3(b)(1), unless the authorization is terminated or revoked sooner. [facility] is certified under CLIA-88 as qualified to perform high complexity testing. Testing is performed in the [facility] laboratories located at [address] [place] [address]. Performed By: #### C OVSC #### [place] [address] [place] [address] CORONAVIRUS 2019, SCREEN ASY MPTOMATICon 01-16-2020 Lab Specimen Source Nasal, Nasopharyngeal Normal [facility] Comment on above: Performed By: #### C OVSC #### [facility] [address] [place] [address] Patient Profile - Preop v2on 01-12-2020 Patient Profile - Preop v2 Profile: Initial Info: How to be AddressedEthel(1) Spoken Language PreferredEnglish (1) Source of Informationpatient Are you currently using the Personal Electronic Health Record or WecashCAREno (1) Are you interested in learning more about [facility] for the management of your healthdeclined Instructions Givenappropriate clothing, bring responsible adult as the limo driver (procedure may be cancelled if no limo driver), center location, insurance information, remove jewerly/piercings Prep Instructions Reviewedyes Instructed to Have No Fluids Aftermidnight Stated Reason for Admissioncataract surgery Primary Contact Name and NumberIrish- danielle- [phone] Patient Belongingsremains with patient Medications Brought to Hospitalno General Health: Weight in kg98.1 kilogram(s) Weight in xee774.2 pound(s) Weight Methodactual (measured) Scale Typestanding Height in feet5 feet Height in inches4 inch(es) Height in cm162.5 centimeter(s) Height Methodstated BMI (kg/m2)37.15 square meter Patient or Family Member Reaction to Anesthesiano previous reaction; no previous family member reaction Blood Avoidance/Restrictions none Health Mgmt: Symptoms/Conditions Managed at Homenone Barriers [...] instruction; written material Cultural Considerationsnone Developmental Considerationsnone Restorationism Considerationsnone Other learner availableyes... Learnerfamily Factors Influencing Readiness to Learnanxiety Factors that Impact Ability to Learnvisual problems Devices/Methods Used to Communicateglasses Learning Preferencesverbal instruction, written material Cultural Considerationsnone Developmental Considerationsnone Restorationism Considerationsnone Falls RiskPatient location auto qualifies him/her for HIGH RISK. Are there any cultural, spiritual, islam practices/values/needs that are important for us to knowno Pain Scalenumerical 0-10 Pain Scale Educationteaching provided Current Pain Level0 = None Acceptable Pain Level7 = Severe Chronic Painno Information Review: Allergies, Home Meds and Significant Events have been Reviewed and Verified with Patient/Familyyes Allergy, Intolerance, Adverse Event: Allergies: No Known Allergies: Active Electronic Signatures: Aruna Wagner (RN) (Signed 18-Jan-2020 07:29) Authored: Profile, Additional Information Ashley Antonio (HARI) (Signed 12-Jan-2020 11:53) Authored: Profile, Additional Information Last Updated: 18-Jan-2020 07:29 by Aruna Wagner (RN) References: 1. Data Referenced From Patient Profile - Preop v2 02-Jan-2020 14:39 [facility] History and Physical - Surgi rafal Update [...] Last Updated: 04-Jan-2020 06:50 by Yaya Juan) [facility] Preop Checkliston 01-04-2020 Preop Checklist Preop Checklist: Preop Checklist: Arrival [id number] Arrival Time06:40 Procedure Typeright cataract surgery Temperature C36.2 degrees C Temperature F97.3 degrees F Heart Rate66 beats per minute Respiratory Rate16 breath per minute Blood Pressure Uafzlzhh568 mm/Hg Blood Pressure Zfimvorkl06 mm/Hg NPO [id number] 17:30 NPO Commentsips of water this morning ID Band Onyes Allergy Bandno known allergies Consent Signedyes H&P Completeyes Anesthesia Assessment Completedyes EKG Performednot ordered Chest X-Ray Performednot ordered HCG Urine TestN/A Chlorhexadine Bath Givennot applicable Nasal Antiseptic Appliednot applicable Hair Washednot applicable Soap and water bath with hair shampoo the night before surgerynot applicable Hat placed on infant prior to transportnot applicable SCD's Appliednot applicable [...] Updated: 04-Jan-2020 07:02 by Janeth Meek (HARI) [facility] CORONAVIRUS 2019, SCREEN ASY MPTOMATICon 01-03-2020 CORONAVIRUS 2019,PCR NOT DETECTED Normal Not Detected [facility] Comment on above: Result Comment: This [...] patient management decisions. Fact sheet for providers: https://www.fda.gov/media/393212/download Fact sheet for patients: https://www.fda.gov/media/947187/download This test has received FDA Emergency Use Authorization (EUA) and has been verified by [facility] ([facility]). This test is only authorized for the duration of time that circumstances exist to justify the authorization of the emergency use of in vitro diagnostic tests for the detection of SARS-CoV-2 virus and/or diagnosis of COVID-19 infection under section 564(b)(1) of the Act, 21 U.S.C. 360bbb-3(b)(1), unless the authorization is terminated or revoked sooner. [facility] is certified under CLIA-88 as qualified to perform high complexity testing. Testing is performed in the [facility] laboratories located at [address] [place] [address]. Performed By: #### C OVSC #### [address] [place] [address] CORONAVIRUS 2019, SCREEN ASY MPTOMATICon 01-02-2020 Lab Specimen Source Nasal, Nasopharyngeal Normal [facility] Comment on above: Performed By: #### C OVSC #### [address] [place] [address] Patient Profile - Preop v2on 01-02-2020 Patient Profile - Preop v2 Profile: Initial Info: How to be AddressedEthel Spoken Language PreferredEnglish Source of Informationpatient Are you currently using the Personal Electronic Health Record or [employer] Are you interested in learning more about [facility] for the management of your healthdeclined Instructions Givenappropriate clothing, bring responsible adult as the limo driver (procedure may be cancelled if no limo driver), center location, insurance information, remove jewerly/piercings Prep Instructions Reviewedyes Instructed to Have No Fluids Aftermidnight Stated Reason for Admissionright cataract surgery Primary Contact Name and NumberCici santos- [phone] Patient Belongingsremains with patient Medications Brought to Hospitalno General Health: Weight in kg98.1 kilogram(s) Weight in fic031.2 pound(s) Weight Methodactual (measured) Scale Typestanding Height in feet5 feet Height in inches4 inch(es) Height in cm162.5 centimeter(s) Height Methodstated BMI (kg/m2)37.15 square meter Patient or Family Member Reaction to Anesthesiano previous reaction; no previous family member reaction Blood Avoidance/Restrictions none Health Mgmt: Symptoms/Conditions Managed at Homecardiovascular; gastrointestinal; musculoskeletal Cardiovascular Symptoms/Conditionshyp ertension Gastrointestinal Symptoms/Conditionsref lux/heartburn Musculoskeletal Symptoms/Conditionsost eoarthritis Barriers to Managing Healthnone Relationship/Environ: Resource/Environmental Concernsnone [...] instruction; written material Cultural Considerationsnone Developmental Considerationsnone Restorationism Considerationsnone Other learner availableyes... Learnerfamily Factors Influencing Readiness to Learnanxiety Factors that Impact Ability to Learnvisual problems Devices/Methods Used to Communicateglasses Learning Preferencesverbal instruction, written material Cultural Considerationsnone Developmental Considerationsnone Restorationism Considerationsnone Falls RiskPatient location auto qualifies him/her for HIGH RISK. Are there any cultural, spiritual, islam practices/values/needs that are important for us to [...] Information Last Updated: 04-Jan-2020 06:54 by Janeth Meek (HARI) [facility] Vital Signs Date Time Vital Sign Value Performing Clinician Facility 12-08-2024 10:13-0400 Body mass index (BMI) [Ratio] 35.85 kg/m2 Lyndsey Neumann APRN.CRESENCIO Work Phone: [facility] 12-08-2024 10:13-0400 Body weight 99.97 kg Lyndseyyayo Andersono CAT OPERATOR.RACKMAN Work Phone: [facility] 12-08-2024 10:13-0400 Diastolic blood pressure 86 mm[Hg] Lyndsey Walter CAT OPERATOR.RACKMAN Work Phone: [facility] 12-08-2024 10:13-0400 Heart rate 70 /min Lyndsey Walter CAT OPERATOR.RACKMAN Work Phone: [facility] 12-08-2024 10:13-0400 Respiratory rate 16 /min Lyndsey Walter CAT OPERATOR.RACKMAN Work Phone: [facility] 12-08-2024 10:13-0400 Systolic blood pressure 132 mm[Hg] Lyndsey Walter CAT OPERATOR.RACKMAN Work Phone: [facility] 09-29-2024 09:24-0400 Body mass index (BMI) [Ratio] 36.78 kg/m2 Candice Kiran MD Work Phone: [facility] 09-29-2024 09:24-0400 Body weight 100.25 kg Candice Kiran MD Work Phone: [facility] 09-29-2024 09:24-0400 Diastolic blood pressure 80 mm[Hg] Candice Kiran MD Work Phone: [facility] 09-29-2024 09:24-0400 Heart rate 69 /min Candice Kiran MD Work Phone: [facility] 09-29-2024 09:24-0400 SaO2% (BldA) [Mass fraction] 96 % Candice Kiran MD Work Phone: [facility] 09-29-2024 09:24-0400 Systolic blood pressure 128 mm[Hg] Candice Kiran MD Work Phone: [facility] 06-01-2024 09:00-0500 Body height 167 cm Kaylen Best CAT OPERATOR.RACKMAN Work Phone: [facility] 06-01-2024 09:00-0500 Body mass index (BMI) [Ratio] 35.33 kg/m2 Kaylen Best CAT OPERATOR.RACKMAN Work Phone: [facility] 06-01-2024 09:00-0500 Body weight 98.52 kg Kaylen Best CAT OPERATOR.RACKMAN Work Phone: [facility] 06-01-2024 09:00-0500 Diastolic blood pressure 62 mm[Hg] Kaylen Best CAT OPERATOR.RACKMAN Work Phone: [facility] 06-01-2024 09:00-0500 Heart rate 66 /min Kaylen Best CAT OPERATOR.RACKMAN Work Phone: [facility] 06-01-2024 09:00-0500 Respiratory rate 14 /min Kaylen Best CAT OPERATOR.RACKMAN Work Phone: [facility] 06-01-2024 09:00-0500 SaO2% (BldA) [Mass fraction] 98 % Kaylen Best CAT OPERATOR.RACKMAN Work Phone: [facility] 06-01-2024 09:00-0500 Systolic blood pressure 122 mm[Hg] Kaylen Best CAT OPERATOR.RACKMAN Work Phone: [facility] 01-17-2024 09:08-0400 Body height 165.1 cm Monica Porter MD Work Phone: [facility] 01-17-2024 09:08-0400 Body mass index (BMI) [Ratio] 36.39 kg/m2 Monica Porter MD Work Phone: [facility] 01-17-2024 09:08-0400 Body weight 99.2 kg Monica Porter MD Work Phone: [facility] 10-07-2023 12:25-0400 Diastolic blood pressure 75 mm[Hg] Maryam Lugo MD Work Phone: [facility] 10-07-2023 12:25-0400 Heart rate 94 /min Maryam Lugo MD Work Phone: [facility] 10-07-2023 12:25-0400 Respiratory rate 18 /min Maryam Lugo MD Work Phone: [facility] 10-07-2023 12:25-0400 SaO2% (BldA) [Mass fraction] 99 % Maryam Lugo MD Work Phone: [facility] 10-07-2023 12:25-0400 Systolic blood pressure 144 mm[Hg] Maryam Lugo MD Work Phone: [facility] 10-07-2023 12:10-0400 Body temperature 96.4 [degF] Maryam Lugo MD Work Phone: [facility] 10-07-2023 09:21-0400 Body height 165.1 cm Maryam Lugo MD Work Phone: [facility] 10-07-2023 09:21-0400 Body mass index (BMI) [Ratio] 37.86 kg/m2 Maryam Lugo MD Work Phone: [facility] 10-07-2023 09:21-0400 Body weight 103.2 kg Maryam Lugo MD Work Phone: [facility] 09-28-2023 07:05-0400 Body mass index (BMI) [Ratio] 39.72 kg/m2 Chyna Mercy CAT OPERATOR.RACKMAN Work Phone: [facility] 09-28-2023 07:05-0400 Body weight 104.96 kg Chyna Mercy CAT OPERATOR.RACKMAN Work Phone: [facility] 09-28-2023 07:05-0400 Diastolic blood pressure 82 mm[Hg] Chyna Mercy CAT OPERATOR.RACKMAN Work Phone: [facility] 09-28-2023 07:05-0400 Heart rate 78 /min Chyna Mercy CAT OPERATOR.RACKMAN Work Phone: [facility] 09-28-2023 07:05-0400 Respiratory rate 18 /min Chyna Mercy CAT OPERATOR.RACKMAN Work Phone: [facility] 09-28-2023 07:05-0400 SaO2% (BldA) [Mass fraction] 94 % Chyna Mercy CAT OPERATOR.RACKMAN Work Phone: [facility] 09-28-2023 07:05-0400 Systolic blood pressure 136 mm[Hg] Chyna Mercy CAT OPERATOR.RACKMAN Work Phone: [facility] 08-11-2023 07:47-0400 Body temperature 97.2 [degF] Indira Levy MD Work Phone: [facility] 08-11-2023 07:47-0400 Diastolic blood pressure 60 mm[Hg] Indira Levy MD Work Phone: [facility] 08-11-2023 07:47-0400 Heart rate 63 /min Indira Levy MD Work Phone: [facility] 08-11-2023 07:47-0400 Respiratory rate 16 /min Indira Levy MD Work Phone: [facility] 08-11-2023 07:47-0400 SaO2% (BldA) [Mass fraction] 95 % Indira Levy MD Work Phone: [facility] 08-11-2023 07:47-0400 Systolic blood pressure 129 mm[Hg] Indira Levy MD Work Phone: [facility] 08-10-2023 08:41-0400 Body height 165.1 cm Indira Levy MD Work Phone: [facility] 08-10-2023 08:41-0400 Body mass index (BMI) [Ratio] 37.93 kg/m2 Indira Levy MD Work Phone: [facility] 08-10-2023 08:41-0400 Body weight 103.4 kg Indira Levy MD Work Phone: [facility] 07-13-2023 13:13-0400 Body weight 107.68 kg Chyna Mercy CAT OPERATOR.RACKMAN Work Phone: [facility] 07-13-2023 13:13-0400 Diastolic blood pressure 78 mm[Hg] Chyna Mercy CAT OPERATOR.RACKMAN Work Phone: [facility] 07-13-2023 13:13-0400 Heart rate 71 /min Chyna Mercy CAT OPERATOR.RACKMAN Work Phone: [facility] 07-13-2023 13:13-0400 SaO2% (BldA) [Mass fraction] 98 % Chyna Mercy CAT OPERATOR.RACKMAN Work Phone: [facility] 07-13-2023 13:13-0400 Systolic blood pressure 136 mm[Hg] Chyna Mercy CAT OPERATOR.RACKMAN Work Phone: [facility] 07-02-2023 10:35-0500 Body mass index (BMI) [Ratio] 38.94 kg/m2 Sam Gracia MD Work Phone: [facility] 07-02-2023 10:35-0500 Body weight 106.14 kg Sam Gracia MD Work Phone: [facility] 03-16-2023 09:58-0500 Body height 165.1 cm Monica Porter MD Work Phone: [facility] 03-16-2023 09:58-0500 Body mass index (BMI) [Ratio] 38.01 kg/m2 Monica Porter MD Work Phone: [facility] 03-16-2023 09:58-0500 Body temperature 97.59 [degF] Monica Porter MD Work Phone: [facility] 03-16-2023 09:58-0500 Body weight 103.6 kg Monica Porter MD Work Phone: [facility] 12-01-2022 11:25-0400 Body height 165.1 cm Estella Soto CNP Work Phone: [facility] 12-01-2022 11:25-0400 Body mass index (BMI) [Ratio] 37.77 kg/m2 Estella Soto CNP Work Phone: [facility] 12-01-2022 11:25-0400 Body weight 102.97 kg Estella Soto CNP Work Phone: [facility] 12-01-2022 11:25-0400 Diastolic blood pressure 77 mm[Hg] Estella Soto CNP Work Phone: [facility] 12-01-2022 11:25-0400 Heart rate 66 /min Estella Soto CNP Work Phone: [facility] 12-01-2022 11:25-0400 SaO2% (BldA) [Mass fraction] 96 % Estella Soto CNP Work Phone: [facility] 12-01-2022 11:25-0400 Systolic blood pressure 122 mm[Hg] Estella Soto RACKMAN Work Phone: [facility] 02-16-2022 14:52-0400 Body temperature 97.3 [degF] Trace Mendiola DO Work Phone: [facility] 02-16-2022 14:52-0400 Body weight 102.06 kg Trace Mendiola DO Work Phone: [facility] 02-16-2022 14:52-0400 Diastolic blood pressure 80 mm[Hg] Trace Mendiola DO Work Phone: [facility] 02-16-2022 14:52-0400 Heart rate 76 /min Trace Mendiola DO Work Phone: [facility] 02-16-2022 14:52-0400 Respiratory rate 20 /min Trace Mendiola DO Work Phone: [facility] 02-16-2022 14:52-0400 Systolic blood pressure 110 mm[Hg] Trace Mendiola DO Work Phone: [facility] 11-24-2021 14:02-0400 Body height 165.1 cm Peyton Kenyon RACKMAN Work Phone: [facility] 11-24-2021 14:02-0400 Body mass index (BMI) [Ratio] 37.77 kg/m2 Peyton Kenyon RACKMAN Work Phone: [facility] 11-24-2021 14:02-0400 Body weight 102.97 kg Peyton Kenyon RACKMAN Work Phone: [facility] 11-24-2021 14:02-0400 Diastolic blood pressure 76 mm[Hg] Peyton Kenyon RACKMAN Work Phone: [facility] 11-24-2021 14:02-0400 Heart rate 66 /min Peyton Kenyon RACKMAN Work Phone: [facility] 11-24-2021 14:02-0400 SaO2% (BldA) [Mass fraction] 96 % Peyton Kenyon RACKMAN Work Phone: [facility] 11-24-2021 14:02-0400 Systolic blood pressure 121 mm[Hg] Peyton Kenyon RACKMAN Work Phone: [facility] 05-21-2020 09:20-0500 BMI (Body Mass Index) 36.11 kg/m2 Candice Kiran [facility] 05-21-2020 09:20-0500 Body weight 98.43 kg Candice Kiran [facility] 05-21-2020 09:20-0500 BP Diastolic 77 mm[Hg] Candice Kiran [facility] 05-21-2020 09:20-0500 BP Systolic 143 mm[Hg] Candice Kiran [facility] 05-21-2020 09:20-0500 Height 165.1 cm Candice Kiran [facility] 05-17-2019 09:17-0500 BMI (Body Mass Index) 33.8 kg/m2 Shawna Lyonsdeo [facility] 05-17-2019 09:17-0500 Body weight 92.13 kg [facility] 05-17-2019 09:17-0500 BP Diastolic 83 mm[Hg] [facility] 05-17-2019 09:17-0500 BP Systolic 134 mm[Hg] [facility]a [facility] 05-17-2019 09:17-0500 Height 165.1 cm [facility] 05-17-2019 09:17-0500 Pulse (Heart Rate) 67 /min [facility] 05-17-2019 09:17-0500 Pulse Oximetry 100 % [facility] 09-07-2018 09:23-0400 BMI (Body Mass Index) 33.61 kg/m2 [facility] 09-07-2018 09:23-0400 BP Diastolic 80 mm[Hg] [facility] 09-07-2018 09:23-0400 BP Systolic 124 mm[Hg] Shawna [facility] 09-07-2018 09:23-0400 Height 165.1 cm [facility] 09-07-2018 09:23-0400 Pulse (Heart Rate) 75 /min [facility] 09-07-2018 09:23-0400 Pulse Oximetry 97 % Shawna Zhou [facility] 09-07-2018 09:23-0400 Weight 91.63 kg Shawna Zhou [facility] 05-18-2017 09:31-0500 BMI (Body Mass Index) 40.44 kg/m2 Sam Castano [facility] Work Phone: 05-18-2017 09:31-0500 BP Diastolic 74 mm[Hg] Sam Castano [facility] Work Phone: 05-18-2017 09:31-0500 BP Systolic 123 mm[Hg] Sam Castano [facility] Work Phone: 05-18-2017 09:31-0500 Height 165.1 cm Sam Castano [facility] Work Phone: 05-18-2017 09:31-0500 Pulse (Heart Rate) 69 /min Sam Castano [facility] Work Phone: 05-18-2017 09:31-0500 Pulse Oximetry 93 % Sam Castano [facility] Work Phone: 05-18-2017 09:31-0500 Weight 110.22 kg Sam Castano [facility] Work Phone: Encounters Encounter Date Encounter Type Care Provider Facility Start: 12-20-2024 End: 12-20-2024 [facility] [place] Start: 12-20-2024 End: 12-20-2024 Patient encounter procedure Hortencia Millard MA [facility] Comment on above: Population Health Na vigation Outreach ([facility] Sprint list ) Start: 12-08-2024 End: 12-08-2024 ambulatory LYNDSEY NEUMANN Facility:[facility] Start: 12-08-2024 End: 12-08-2024 Office outpatient visit 25 minutes Lyndsey Neumann APRN.RACKMAN Work Phone: [facility] Comment on above: Essential hypertensi on (Primary Dx); Bilateral lower extremity edema; Dyslipidemia; Iron deficiency anemia, unspecified iron deficiency anemia type; Gastroesophageal reflux disease without esophagitis; Obesity, Class II, BMI 35-39.9; Screening for depression; Encounter for screening examination for other mental health and behavioral disorders; Elevated antinuclear antibody (NOEMY) level; Elevated rheumatoid factor Start: 12-08-2024 End: 12-08-2024 ambulatory LYNDSEY NEUMANN Facility:[facility] Start: 11-08-2024 End: 11-08-2024 Refill Candice Kiran MD Work Phone: [facility] Comment on above: Medication Refill Start: 10-04-2024 End: 10-04-[address] Trace Mendiola DO Work Phone: [facility] Work Phone: Start: 10-04-2024 End: 10-04-[address] Love Gunter MD [facility] [place] Work Phone: Start: 10-04-2024 End: 10-04-2024 ambulatory Love Gunter Facility:[facility] Start: 09-29-2024 End: 09-29-2024 Office outpatient visit 15 minutes Candice Kiran MD Work Phone: [facility] Comment on above: Primary hypertension (Primary Dx); LV dysfunction with recoverability Start: 09-29-2024 End: 09-29-2024 ambulatory CANDICE KIRAN [facility] Start: 08-14-2024 End: 08-14-2024 Subsequent hospital visit by physician Berkley Najera101 X-Ray 2 [facility] Comment on above: Arthritis of right w rist; Extensor tendon rupture of hand, right, initial encounter Start: 08-14-2024 End: 08-14-2024 ambulatory MARYAM LEVY [facility] Start: 08-14-2024 End: 08-14-2024 Office outpatient visit 15 minutes Maryam Lugo MD Work Phone: [facility] Comment on above: Arthritis of right w rist; Extensor tendon rupture of hand, right, initial encounter Start: 08-07-2024 End: 08-07-2024 Office outpatient visit 15 minutes Indira Levy MD Work Phone: [facility] Comment on above: S/P reverse total sh oulder arthroplasty, right (Primary Dx) Start: 08-07-2024 End: 08-07-2024 Subsequent hospital visit by physician Berkley North X-Ray 1 [facility] Comment on above: S/P reverse total sh oulder arthroplasty, right Start: 08-07-2024 End: 08-07-2024 ambulatory INDIRA Mccauley [facility] Start: 06-01-2024 End: 06-01-2024 Telephone encounter Kaylen Best APRN.RACKMAN Work Phone: [facility] Comment on above: Medication Update Start: 06-01-2024 End: 06-01-2024 Patient encounter procedure Kaylen Best APRN.RACKMAN Work Phone: [facility] Comment on above: Bilateral lower extr emity edema; Essential hypertension Start: 06-01-2024 End: 06-01-2024 ambulatory TRACE L MENDIOLA Facility:[facility] Start: 05-29-2024 End: 05-29-2024 ambulatory Trace L Mendiola DO Work Phone: [facility] Comment on above: Allied Health Visit (Medication Adherence Outreach ) Start: 05-23-2024 End: 05-23-[address] [facility] Facility:[facility] Start: 03-21-2024 End: 03-21-[address] [facility] Facility:[facility] Start: 03-02-2024 End: 03-03-2024 Refill Chyna Grimm APRN.RACKMAN Work Phone: [facility] Comment on above: Refill Request Start: 02-24-2024 End: 02-24-2024 ambulatory Guerda Guerrero [facility] Start: 02-24-2024 End: 02-24-2024 Patient encounter procedure Guerda Guerrero [facility] [place] Comment on above: Population Health Na vigation Outreach ([facility] Start: 02-16-2024 End: 02-17-2024 Refill Candice Kiran MD Work Phone: [facility] Comment on above: Medication Refill Start: 02-15-2024 End: 02-15-2024 [facility] Start: 01-18-2024 End: 01-18-2024 ambulatory RODOLFO CASSIDY [facility] Start: 01-17-2024 End: 01-17-2024 ambulatory MONICA PORTER [facility] Start: 01-17-2024 End: 01-17-2024 Postop follow up visit related to original px Moniac Porter MD Work Phone: [facility] Comment on above: Bilateral impacted c erumen (Primary Dx); Sensorineural hearing loss, bilateral Start: 01-11-2024 End: 01-11-[address] [facility] Facility:[facility] Start: 01-06-2024 End: 01-06-2024 ambulatory [facility] Start: 01-06-2024 [facility] Start: 01-05-2024 End: 01-05-2024 Office outpatient visit 15 minutes Indira Levy MD Work Phone: [facility] Comment on above: S/P reverse total sh oulder arthroplasty, right (Primary Dx) Start: 01-05-2024 End: 01-05-2024 Subsequent hospital visit by physician Berkley Najera101 X-Ray 1 [facility] Comment on above: S/P reverse total sh oulder arthroplasty, right Start: 01-05-2024 End: 01-05-2024 ambulatory [facility] Start: 01-04-2024 End: 01-04-2024 ambulatory [facility] Start: 01-03-2024 End: 01-03-2024 Postop follow up visit related to original px Maryam Lugo MD Work Phone: [facility] Comment on above: Extensor tendon rupt ure of hand, right, initial encounter Start: 01-03-2024 End: 01-03-2024 Subsequent hospital visit by physician Berkley North X-Ray 1 [facility] Comment on above: Extensor tendon rupt ure of hand, right, initial encounter Start: 01-03-2024 End: 01-03-2024 ambulatory MARYAM Mccauley [facility] Start: 12-31-2023 End: 12-31-2023 ambulatory [facility] Start: 12-29-2023 End: 12-29-2023 ambulatory RODOLFO Paul [facility] Start: 12-24-2023 End: 12-24-2023 ambulatory [facility] Start: 12-23-2023 ambulatory [facility] Start: 12-20-2023 End: 12-20-2023 ambulatory [facility] Start: 12-16-2023 End: 12-16-2023 ambulatory [facility] Start: 12-13-2023 End: 12-13-2023 Patient encounter procedure [facility] [place] Comment on above: Population Health Na vigation Outreach (Fantasma enriquez) Start: 12-13-2023 End: 12-13-2023 ambulatory [facility] [place] Start: 12-09-2023 ambulatory [facility] Start: 12-06-2023 End: 12-06-2023 ambulatory [facility] Start: 12-03-2023 End: 12-03-2023 ambulatory [facility] Start: 11-29-2023 End: 11-29-2023 ambulatory [facility] Start: 11-26-2023 End: 11-26-2023 ambulatory [facility] Start: 11-24-2023 End: 11-24-2023 ambulatory [facility] Start: 11-19-2023 End: 11-19-2023 ambulatory [facility] Start: 11-12-2023 Refill Chyna guzman CAT OPERATOR.RACKMAN Work Phone: [facility] [place] Comment on above: Refill Request Start: 11-12-2023 End: 11-12-2023 Subsequent hospital visit by physician Berkley Melara X-Ray 1 [facility] Comment on above: S/P reverse total sh oulder arthroplasty, right Start: 11-12-2023 End: 11-12-2023 ambulatory [facility] Start: 11-12-2023 End: 11-12-2023 Office outpatient visit 15 minutes Indira Levy MD Work Phone: [facility] Comment on above: S/P reverse total sh oulder arthroplasty, right (Primary Dx) Start: 11-10-2023 Telephone encounter Trace west DO Work Phone: [facility] [place] Start: 11-10-2023 End: 11-10-2023 ambulatory [facility] Start: 11-08-2023 End: 11-08-2023 ambulatory [facility] Start: 11-01-2023 End: 11-01-2023 ambulatory [facility] Start: 10-27-2023 End: 10-27-2023 ambulatory Chyna Grimm APRN.RACKMAN Work Phone: [facility] [place] Start: 10-27-2023 Patient encounter procedure Chyna Grimm APRN.RACKMAN Work Phone: [facility] [place] Comment on above: Referral for rheumat ologist Start: 10-25-2023 End: 10-25-2023 ambulatory [facility] Start: 10-20-2023 End: 10-20-2023 ambulatory Chyna Grimm APRN.RACKMAN Work Phone: [facility] [place] Comment on above: 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 Start: 10-19-2023 End: 10-19-2023 ambulatory MARYAM Garrick [facility] Start: 10-19-2023 End: 10-19-2023 Postop follow up visit related to original px Maryam Lugo MD Work Phone: [facility] Comment on above: Extensor tendon rupt ure of hand, right, initial encounter (Primary Dx) Start: 10-18-2023 End: 10-18-2023 ambulatory [facility] Start: 10-15-2023 End: 10-15-2023 ambulatory [facility] Start: 10-13-2023 ambulatory [facility] [place] Start: 10-13-2023 Patient encounter procedure Guerdaric Guerrero [facility] [place] Comment on above: Population Health Na vigation Outreach ([employer] [place]) Start: 10-07-2023 End: 10-07-2023 Subsequent hospital visit by physician Maryam Lugo MD Work Phone: [facility] [place] Comment on above: Spontaneous rupture of extensor tendons, right hand (Primary Dx) Start: 10-06-2023 End: 10-06-2023 ambulatory [facility] Start: 09-28-2023 Telephone encounter Chyna Childers APRN.RACKMAN Work Phone: [facility] [place] Comment on above: Medication Update Forms Start: 09-28-2023 End: 09-28-2023 ambulatory [facility] Start: 09-28-2023 End: 09-28-2023 Patient encounter procedure Chyna Grimm APRN.RACKMAN Work Phone: [facility] [place] Comment on above: Preop examination (P rimary Dx); Extensor tendon rupture of hand, right, subsequent encounter; Bilateral lower extremity edema; Elevated antinuclear antibody (NOEMY) level; Elevated rheumatoid factor Start: 09-28-2023 End: 09-28-2023 Preprocedural examination done Chyna Grimm APRN.CNP Work Phone: [facility] Work Phone: Start: 09-24-2023 End: 09-24-2023 Subsequent hospital visit by physician [facility] X-Ray 2 [facility] Comment on above: History of total lucy ulder replacement, right; S/P reverse total shoulder arthroplasty, right Start: 09-24-2023 End: 09-24-2023 Postop follow up visit related to original px Indira Levy MD Work Phone: [facility] Comment on above: History of total lucy ulder replacement, right; S/P reverse total shoulder arthroplasty, right Start: 09-24-2023 End: 09-24-2023 ambulatory [facility] Start: 09-21-2023 End: 09-21-2023 Office outpatient visit 25 minutes Maryam Lugo MD Work Phone: [facility] Comment on above: Extensor tendon rupt ure of hand, right, initial encounter (Primary Dx) Start: 09-21-2023 End: 09-21-2023 ambulatory [facility] Start: 09-09-2023 End: 09-10-2023 ambulatory [facility] Start: 09-09-2023 End: 09-09-[address] [facility] Start: 09-09-2023 End: 09-09-2023 Subsequent hospital visit by physician Chance Abdulaziz [facility] Comment on above: Polyarthralgia Start: 09-03-2023 End: 09-03-2023 Office outpatient visit 25 minutes Maryam Lugo MD Work Phone: [facility] Comment on above: Extensor tendon rupt ure of hand, right, initial encounter (Primary Dx); Wrist arthritis; Polyarthralgia Start: 09-03-2023 End: 09-03-2023 Refill Candice Kiran MD Work Phone: [facility] Comment on above: Medication Refill Wrist arthritis Start: 08-31-2023 End: 08-31-2023 Subsequent hospital visit by physician Chance Douglassy100 X-Ray [facility] Comment on above: S/P reverse total sh oulder arthroplasty, right Start: 08-31-2023 End: 08-31-2023 ambulatory INDIRA LEVY [facility] Start: 08-27-2023 End: 08-27-2023 Subsequent hospital visit by physician Berk[facility] X-Ray 1 [facility] Comment on above: History of total lucy ulder replacement, right Start: 08-27-2023 End: 08-27-2023 Postop follow up visit related to original px Indira Levy MD Work Phone: [facility] Comment on above: Right arm fracture, closed, initial encounter (Primary Dx); History of total shoulder replacement, right; S/P reverse total shoulder arthroplasty, right Start: 08-10-2023 End: 08-11-2023 Subsequent hospital visit by physician Indira Levy MD Work Phone: [facility] 6 Comment on above: Unspecified fracture of upper end of unspecified humerus, initial encounter for closed fracture (Primary Dx); S/P reverse total shoulder arthroplasty, right Start: 08-09-2023 End: 08-09-2023 Postop follow up visit related to original px Indira Levy MD Work Phone: [facility] Comment on above: Closed 3-part fractu re of proximal humerus with routine healing, right (Primary Dx) Start: 08-09-2023 Telephone encounter Trace west DO Work Phone: [facility] [place] Comment on above: Clearance form incom plete Start: 07-29-2023 End: 07-29-2023 Subsequent hospital visit by physician Berkley Antoine 2 [facility] Comment on above: Closed 3-part fractu re of proximal humerus with routine healing, right Start: 07-16-2023 Telephone encounter Trace west DO Work Phone: [facility] [place] Comment on above: medical clearance fo rm Start: 07-13-2023 End: 07-13-2023 Patient encounter procedure Chyna Grimm VICKY.RACKMAN Work Phone: [facility] [place] Comment on above: Preop examination (P rimary Dx); Essential hypertension; Gastroesophageal reflux disease without esophagitis; Obesity, Class III, BMI 40-49.9 (morbid obesity) ([facility]) Start: 07-13-2023 End: 07-13-2023 Preprocedural examination done Chyna Grimm APRN.RACKMAN Work Phone: [facility] Work Phone: Start: 07-12-2023 End: 07-12-2023 Office outpatient new 60 minutes Indira Levy MD Work Phone: [facility] Comment on above: Closed 3-part fractu re of proximal humerus with routine healing, right Start: 07-02-2023 End: 07-02-2023 Office outpatient visit 15 minutes Sam Gracia MD Work Phone: [facility] Comment on above: Closed 3-part fractu re of proximal humerus with routine healing, right Start: 07-02-2023 End: 07-02-2023 Subsequent hospital visit by physician Chance Dangelo X-Ray [facility] Comment on above: Closed 3-part fractu re of proximal humerus with routine healing, right Start: 07-02-2023 End: 07-02-2023 ambulatory SAM GRACIA [facility] Ambulatory Start: 06-18-2023 End: 06-18-2023 Subsequent hospital visit by physician Chance Dangelo X-Ray [facility] Comment on above: Closed 3-part fractu re of proximal humerus with routine healing, right Start: 06-18-2023 End: 06-18-2023 Office outpatient visit 25 minutes Sam Gracia MD Work Phone: [facility] Comment on above: Closed 3-part fractu re of proximal humerus with routine healing, right Start: 06-18-2023 End: 06-18-2023 ambulatory [facility] Amb[facility] Start: 06-10-2023 End: 06-10-2023 Subsequent hospital visit by physician Chance [id number] X-Ray [facility] Comment on above: Right arm fracture, closed, initial encounter Start: 06-10-2023 End: 06-10-2023 Office outpatient new 45 minutes Sam Gracia MD Work Phone: [facility] Comment on above: Closed 3-part fractu re of proximal humerus with routine healing, right (Primary Dx); Right arm fracture, closed, initial encounter Start: 06-10-2023 End: 06-10-2023 ambulatory [facility] Start: 06-08-2023 Telephone encounter Trace Gómez serenegela DO Work Phone: [facility] [place] Comment on above: Arm Injury Start: 06-07-2023 End: 06-07-2023 Emergency department patient visit TRACE PACHECOON [facility] Start: 03-29-2023 End: 03-29-2023 Subsequent hospital visit by physician [facility] Comment on above: Screening mammogram for breast cancer [Z12.31] Start: 03-22-2023 ambulatory Trace rodriguez DO Work Phone: [facility] Comment on above: mammogram Start: 03-22-2023 Telephone encounter Trace Socorro Gómez serenegela DO Work Phone: [facility] Comment on above: Patient Question Start: 03-16-2023 End: 03-16-2023 Patient encounter procedure Monica Porter MD Work Phone: [facility] KHADIJAH Dobbs Comment on above: Bilateral impacted c erumen (Primary Dx) Start: 12-01-2022 End: 12-01-2022 Office outpatient visit 15 minutes Estella Soto CNP Work Phone: [facility] Comment on above: Coronary artery dise 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 (Primary Dx); LV dysfunction with recoverability; Primary hypertension; Mixed hyperlipidemia Start: 09-03-2022 Refill Candice smiley MD Work Phone: [facility] Comment on [...] ambulatory Jimmie Kevin MD Work Phone: [facility] Start: 08-10-2022 Patient encounter procedure Jimmie Kevin [...] hospital visit by physician [facility] Comment on above: Visit for screening mammogram [Z12.31] Start: 03-09-2022 Orders Only Trace rodriguez DO Work Phone: [facility] Comment on above: Visit for screening mammogram (Primary Dx) Start: 02-25-2022 Telephone encounter Trace castgela DO Work Phone: [facility] Comment on above: Results Start: 02-17-2022 Patient encounter procedure Trace Mendiola DO Work Phone: [facility] Work Phone: Start: 02-16-2022 End: 02-16-2022 Patient encounter procedure Trace L Mendiola DO Work Phone: [facility] Comment on above: Medicare annual well ness visit, subsequent (Primary Dx); Essential hypertension; Gastroesophageal reflux disease without esophagitis; Primary osteoarthritis of both knees; Dyslipidemia; Fatigue, unspecified type; Vitamin D deficiency Start: 11-24-2021 End: 11-24-2021 Office outpatient visit 10 minutes Peytonsarita Kenyon CNP Work Phone: [facility] Comment on above: Coronary artery dise 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 (Primary Dx); LV dysfunction with recoverability Start: 10-01-2021 Refill Janina Mckeon RN [facility] Comment on above: Medication Refill Start: 09-25-2021 Refill Candice smiley MD Work Phone: [facility] Comment on above: Medication Refill Start: 08-08-2020 End: 08-08-2020 Refill Janina Mckeon [facility] Comment on above: Medication Refill Start: 08-06-2020 End: 08-06-2020 Refill Robina Sung Work Phone: [facility] Comment on above: Medication Refill Start: 05-21-2020 End: 05-21-2020 Phys/qhp telephone evaluation 5-10 min Candice Kiran Work Phone: [facility] Comment on above: Coronary artery dise 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 (Primary Dx); Mixed hyperlipidemia; LV dysfunction with recoverability; Essential hypertension Start: 05-17-2020 End: 05-17-2020 Orders Only Charity Caal Work Phone: [facility] Start: 05-23-2019 End: 05-27-2019 Patient encounter procedure SHAWNA ZHOU [facility] Start: 05-17-2019 End: 05-17-2019 Office outpatient visit 25 minutes Shawna Zhou Work Phone: [facility] Comment on above: Mixed hyperlipidemia ; Essential hypertension with goal blood pressure less than 130/80; Coronary artery dise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; Essential hypertension; LV dysfunction with recoverability Start: 05-11-2019 Refill Candice smiley MD Work Phone: [facility] Comment on above: Medication Refill Start: 09-07-2018 End: 09-07-2018 Office outpatient visit 25 minutes Shawna QuintanillaTed Gomezmartykalie Work Phone: [facility] Comment on above: Coronary artery dise 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; Essential hypertension; LV dysfunction with recoverability; Mixed hyperlipidemia Start: 02-01-2018 Refill Sam purvis DO Work Phone: [facility] Comment on above: Medication Refill Start: 05-18-2017 Office/outpatient vi sit, est, level 3 Sam Castano Work Phone: [facility] Procedures Date Procedure Procedure Detail Performing Clinician Start: 12-08-2024 Adult depression scr eening assessment Lyndsey Neumann APRN.RACKMAN Work Phone: Start: 08-14-2024 Radex wrist complete minimum 3 [...] GRACIA Start: 06-10-2023 XR HUMERUS RIGHT TRACE MAURY Start: 06-10-2023 AMB REFERRAL TO ORTH OPAEDIC SURGERY SAM GRACIA Start: 06-10-2023 Radex humerus minimu m 2 views Sam Gracia MD Work Phone: Start: 06-10-2023 POINT OF CARE ULTRAS OUND NO CHARGE SAM GRACIA Start: 06-07-2023 CT HEAD WO IV CONTRAST TRACE MENDIOLA Start: 06-07-2023 XR HUMERUS RIGHT TRACE MENDIOLA Start: 06-07-2023 XR KNEE LEFT 4+ VIEWS J LACIMEGAN MAURY Start: 06-07-2023 XR SHOULDER RIGHT 2+ VIEWS TRACE MENDIOLA Start: 04-20-2023 Mammography Candice hoyos MD Work Phone: Start: 12-01-2022 Ecg routine ecg w/le ast 12 lds w/i&r Estella Soto RACKMAN Work Phone: Start: 03-12-2022 End: 03-12-2022 Mammography Trace Socorro Maury DO Work Phone: Start: 11-24-2021 Ecg routine ecg w/le ast 12 lds w/i&r Peyton Kenyon RACKMAN Work Phone: Start: 12-09-2018 Mammography Jordyn Almaraz Plan of Treatment Date Care Activity Detail Author Start: 12-09-2027 Diabetes Screening Diabetes Screenin g [facility] Start: 09-08-2026 Diabetes Screening Diabetes Screenin g [facility] Start: 07-12-2026 Diabetes Screening Diabetes Screenin g [facility] Start: 12-08-2025 Anxiety Screening Anxiety Screening [facility] Start: 12-08-2025 Depression Screening Depression Scre ening [facility] Start: 08-29-2025 DTaP/Tdap/Td Vaccine s (2 - Td or Tdap) DTaP/Tdap/Td Vaccines (2 - Td or Tdap) [facility] Start: 08-29-2025 Tetanus vaccination [facility] Start: 08-29-2025 Urine microalbumin profile [facility] Start: 08-13-2025 End: 08-13-2025 Patient encounter procedure 08/13/2025 1:45 PM EDT Office Visit [facility] [address] [phone] Indira Levy MD [address] [facility], [address] [place] [id number] [facility] Start: 06-11-2025 End: 06-11-2025 Patient encounter procedure [facility] [place] Comment on above: Medicare Welless Medicare Welless ple ase adress hccs Obesity, Class III, BMI 40-49.9 (morbid obesity) (HCC) Start: 02-16-2025 DIABETES SCREEN DIABETES SCREEN [facility] Start: 02-16-2025 Diabetes Screening Diabetes Screenin g [facility] Start: 01-22-2025 End: 01-22-2025 Patient encounter procedure 01/22/2025 10:00 AM EDT Office Visit [facility] [address] [place] [address] Monica Porter MD [address] [place] [address] [address] [place] [address] [facility] Start: 12-25-2024 Influenza vaccination Influenza Vacc ine (#1) [facility] Start: 12-08-2024 End: 03-10-2025 Basic metabolic 2000 panel - Serum or Plasma [facility] Work Phone: Comment on above: Expected: 12/08/2024 , Expires: 03/10/2025 Start: 12-08-2024 End: 03-10-2025 CBC panel - Blood by Automated count [facility] Comment on above: Expected: 12/08/2024 , Expires: 03/10/2025 Start: 12-08-2024 End: 03-10-2025 LIPID PANEL, NONFASTING [facility] Comment on above: Expected: 12/08/2024 , Expires: 03/10/2025 Start: 11-29-2024 End: 11-29-2024 Patient encounter procedure 11/29/2024 10:20 AM EDT Office Visit [facility] [address] [facility] [place] [address] Trace Mendiola DO [address] 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 marybeth Disease Visit Annual PCP Team Chronic Disease Visit [facility] Start: 08-07-2024 End: 08-07-2024 Patient encounter procedure 08/07/2024 2:15 PM EDT Office Visit [facility] [address] [address] Indira Levy MD [address] [facility], [address] [place] [address] [facility] Start: 08-01-2024 COVID-19 Vaccine ( season) COVID-19 Vaccine ( season) [facility] Start: 08-01-2024 COVID-19 Vaccine (6 - Pfizer risk season) COVID-19 Vaccine (6 - Pfizer risk season) [facility] Start: 07-12-2024 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 PCP Team 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 Systems Design Engineer marybeth Disease Visit Annual PCP Team Chronic Disease Visit [facility] Start: 05-31-2024 End: 05-31-2024 Patient encounter procedure 05/31/2024 1:00 PM EST Office Visit [facility] [address] [place] [address] Trace Mendiola DO [address] [place] [address] medicare wellness, hcc gap closure, bp, pt requesting shingles vaccine if possible [facility] Comment on above: medicare wellness, h cc gap closure, bp, pt requesting shingles vaccine if possible Start: 04-20-2024 Screening for malign ant neoplasm of breast Mammogram [facility] Start: 03-28-2024 Covid-19 Vaccine ( season) Covid-19 Vaccine () [facility] Start: 02-18-2024 End: 02-18-2024 Patient encounter procedure Rheumatology Comment on above: Elevated antinuclear antibody (NOEMY) level [R76.8]; Elevated rheumatoid factor [R76.8] Start: 02-15-2024 End: 02-15-2024 Patient encounter procedure 02/15/2024 8:20 AM EDT Office Visit [facility] [address] [facility], 3rd [place] [address] Candice Kiran MD [address] [place] [address] [facility] Start: 01-19-2024 End: 01-19-2024 Patient encounter procedure 01/19/2024 2:00 PM EDT Office Visit [facility] [address] [phone] Indira Levy MD [address] [facility], [address] [place] [id number] [facility] Start: 01-18-2024 End: 01-18-2024 ambulatory 01/18/2024 12:45 PM EDT Treatment [facility] [address] [place] [phone] Rodolfo Cassidy, PT [address] [place] [address] [facility] Start: 01-17-2024 End: 01-17-2024 Patient encounter procedure 01/17/2024 9:00 AM EDT Office Visit [facility] [address] [place] [address] Monica Porter MD [address] [place] [address] [facility] Start: 01-06-2024 End: 01-06-2024 ambulatory 01/06/2024 2:45 PM EDT Treatment [address] [phone] Anabelle Orr, PRINCIPAL ARCHAEOLOGIST [address] [place] [address] [facility] Start: 01-05-2024 End: 01-05-2024 Patient encounter procedure 01/05/2024 2:15 PM EDT Office Visit [facility] [address] [phone] Indira Levy MD [address] [facility], [address] [place] [phone] [facility] Start: 01-04-2024 End: 01-04-2024 ambulatory 01/04/2024 2:45 PM EDT Treatment [address] [phone] Anabelle Orr, PRINCIPAL ARCHAEOLOGIST [address] [place] [address] [facility] Start: 12-26-2023 COVID-19 Vaccine ( season) COVID-19 Vaccine ( season) [facility] Start: 12-26-2023 Covid-19 Vaccine ( season) Covid-19 Vaccine () [facility] Start: 12-26-2023 Influenza vaccination Influenza Vacc ine (#1) [facility] Start: 12-13-2023 End: 12-13-2023 ambulatory 12/13/2023 12:45 PM EDT Treatment [address] [address] Rodolfo Cassidy, PT [address] [place] [address] [facility] Start: 12-06-2023 End: 12-06-2023 ambulatory 12/06/2023 1:15 PM EDT Treatment [address] [phone] Charity La, PRINCIPAL ARCHAEOLOGIST [address] [place] [address] [facility] Start: 12-03-2023 End: 12-03-2023 ambulatory 12/03/2023 10:45 AM EDT Treatment [address] [phone] Anabelle Orr, PRINCIPAL ARCHAEOLOGIST [address] [place] [address] [facility] Start: 11-29-2023 End: 11-29-2023 ambulatory 11/29/2023 2:00 PM EDT Treatment [address] [phone] Charity La, PRINCIPAL ARCHAEOLOGIST [address] [facility] [address] [facility] Start: 11-26-2023 End: 11-26-2023 ambulatory 11/26/2023 10:45 AM EDT Treatment [address] [address] Mackenzie Pelaez, PRINCIPAL ARCHAEOLOGIST [address] [facility] [place] [address] [facility] Start: 11-24-2023 End: 11-24-2023 ambulatory 11/24/2023 1:15 PM EDT Treatment [address] [address] Rodolfo Cassidy, PT [address] [facility] [place] [address] [facility] Start: 11-19-2023 End: 11-19-2023 ambulatory 11/19/2023 2:45 PM EDT Treatment [address] [address] Mackenzie Pelaez, PRINCIPAL ARCHAEOLOGIST [address] [facility] [place] [address] [facility] Start: 11-16-2023 End: 11-16-2023 Patient encounter procedure 11/16/2023 2:45 PM EDT Office Visit [facility] [address] [place] [phone] Maryam Abdullahi MD [address] [facility], [address] [place] [id number] [facility] Start: 11-15-2023 End: 11-15-2023 ambulatory 11/15/2023 1:45 PM EDT Evaluation [facility] [address] [place] [phone] [place] [address] Will[address]anueva Department [place] [address] [facility] Start: 11-12-2023 End: 11-12-2023 Patient encounter procedure 11/12/2023 2:45 PM EDT Office Visit [facility] [address] [place] [phone] Indira Levy MD [address] [facility], [address] [place] [address] [phone] [facility] Start: 11-04-2023 End: 11-04-2023 ambulatory 11/04/2023 10:45 AM EDT Treatment [id number] [place] [phone] Rodolfo Cassidy, PT [address] [facility] Services [place], [place] [phone] [facility] Start: 11-01-2023 End: 11-01-2023 ambulatory 11/01/2023 10:45 AM EDT Treatment [facility] [address] [place] [phone] Mackenzie Pelaez, PRINCIPAL ARCHAEOLOGIST [address] [facility] [place], [place] [phone] [facility] Start: 10-27-2023 End: 10-27-2023 ambulatory 10/27/2023 10:45 AM EDT [facility] [address] [place] [address] Mackenzie Pelaez, PRINCIPAL ARCHAEOLOGIST [address] [place] [address] [facility] Start: 10-25-2023 End: 10-25-2023 ambulatory 10/25/2023 10:45 AM EDT Treatment [address] [phone] Charity La, PRINCIPAL ARCHAEOLOGIST [address] [place] [address] [facility] Start: 10-20-2023 End: 10-20-2023 ambulatory 10/20/2023 10:45 AM EDT Treatment [address] [phone] Anabelle Orr, PRINCIPAL ARCHAEOLOGIST [address] [place] [address] [facility] Start: 10-19-2023 End: 10-19-2023 Patient encounter procedure 10/19/2023 2:45 PM EDT Office Visit [facility] [address] [place] [address] Maryam Abdullahi MD [address] [facility], [address] [place] [address] [facility] Start: 10-18-2023 End: 10-18-2023 ambulatory 10/18/2023 10:45 AM EDT Treatment [address] [phone] Charity La, PRINCIPAL ARCHAEOLOGIST [address] [place] [address] [facility] Start: 10-15-2023 End: 10-15-2023 ambulatory 10/15/2023 11:30 AM EDT [facility] [address] [place] [address] Mackenzie Pelaez PTA [address] [place] [address] Anastacio Coles Start: 10-11-2023 End: 10-11-2023 Patient encounter procedure 10/11/2023 2:45 PM EDT Office Visit [facility] [address] [place] [address] Indira Levy MD [address] [facility], [address] [place] [address] [facility] Start: 10-07-2023 Subsequent hospital visit by physician 10/07/2023 Hospital Encounter [facility] [place] [address] [place] [address] Maryam Abdullahi MD [address] [facility], [address] [place] [address], [place] [address] [facility] [place] Start: 10-07-2023 End: 10-07-2023 Excision distal ulna partial/complete Ulna Distal Ward Procedure Spontaneous rupture of extensor tendons, right hand 10/07/2023 10:42 AM EDT [facility] [place] Start: 10-05-2023 End: 01-04-2024 Renal function 2000 panel - Serum or Plasma RENAL FUNCTION PANEL Lab Routine Bilateral lower extremity edema Essential hypertension Expected: 10/05/2023, Expires: 01/04/2024 [facility] Work Phone: Comment on above: Expected: 10/05/2023 , Expires: 01/04/2024 Start: 09-24-2023 End: 09-24-2023 Patient encounter procedure 09/24/2023 3:00 PM EDT Office Visit [facility] [address] [place] [address] Indira Levy MD [address] [facility], [address] [place] [address], [place] [address] [facility] Start: 09-03-2023 End: 09-03-2023 Patient encounter procedure 09/03/2023 3:00 PM EDT Office Visit [facility] [address] [place] [address] Maryam Abdullahi MD [address] [facility], [address] [place] [address], [place] [address] [facility] Start: 09-03-2023 End: 09-02-2024 C reactive protein [Mass/volume] in Serum or Plasma C-Reactive Protein Lab Routine Polyarthralgia Expected: 09/03/2023 (Approximate), Expires: 09/02/2024 [facility] Work Phone: Comment on above: Expected: 09/03/2023 (Approximate), Expires: 09/02/2024 Start: 09-03-2023 End: 09-02-2024 Comprehensive metabolic 2000 panel - Serum or Plasma Comprehensive Metabolic Panel Lab Routine Polyarthralgia Expected: 09/03/2023 (Approximate), Expires: 09/02/[address] [facility] Service Area Work Phone: Comment on above: Expected: 09/03/2023 (Approximate), Expires: 09/02/2024 Start: 09-03-2023 End: 09-02-2024 Cyclic citrullinated peptide IgG Ab [Units/volume] in Serum or Plasma Citrulline Antibody, IgG Lab Routine Polyarthralgia Expected: 09/03/2023 (Approximate), Expires: 09/02/2024 [facility] Work Phone: Comment on above: Expected: 09/03/2023 (Approximate), Expires: 09/02/2024 Start: 09-03-2023 End: 09-02-2024 DNA double strand Ab [Units/volume] in Serum Anti-DNA Antibody, Double-Stranded Lab Routine Polyarthralgia Expected: 09/03/2023 (Approximate), Expires: 09/02/2024 [facility] Work Phone: Comment on above: Expected: 09/03/2023 (Approximate), Expires: 09/02/2024 Start: 09-03-2023 End: 09-02-2024 Erythrocyte sedimentation rate Sedimentation Rate Lab Routine Polyarthralgia Expected: 09/03/2023 (Approximate), Expires: 09/02/2024 [facility] Work Phone: Comment on above: Expected: 09/03/2023 (Approximate), Expires: 09/02/2024 Start: 09-03-2023 End: 09-02-2024 MR Wrist - right WO contrast MR wrist right wo IV contrast Imaging Routine Polyarthralgia Expected: 09/03/2023, Expires: 09/02/2024 [facility] Work Phone: Comment on above: Expected: 09/03/2023 , Expires: 09/02/2024 Start: 09-03-2023 End: 09-02-2024 Nuclear Ab [Presence] in Serum by Hep2 substrate NOEMY without Reflex JORGE Lab Routine Polyarthralgia Expected: 09/03/2023 (Approximate), Expires: 09/02/2024 [facility] Work Phone: Comment on above: Expected: 09/03/2023 (Approximate), Expires: 09/02/2024 Start: 09-03-2023 End: 09-02-2024 Rheumatoid factor [Units/volume] in Serum by Nephelometry Rheumatoid Factor Lab Routine Polyarthralgia Expected: 09/03/2023 (Approximate), Expires: 09/02/2024 [facility] Work Phone: Comment on above: Expected: 09/03/2023 (Approximate), Expires: 09/02/2024 Start: 09-03-2023 End: 09-02-2024 Urate [Mass/volume] in Serum or Plasma Uric Acid Lab Routine Polyarthralgia Expected: 09/03/2023 (Approximate), Expires: 09/02/2024 [facility] Work Phone: Comment on above: Expected: 09/03/2023 (Approximate), Expires: 09/02/2024 Start: 09-03-2023 End: 09-02-2024 Urinalysis complete panel - Urine Urinalysis with Reflex Microscopic Lab Routine Polyarthralgia Expected: 09/03/2023 (Approximate), Expires: 09/02/2024 [facility] Work Phone: Comment on above: Expected: 09/03/2023 (Approximate), Expires: 09/02/2024 Start: 08-30-2023 End: 08-29-2024 XR Shoulder - right 2 Views XR shoulder right 2+ views Imaging Routine S/P reverse total shoulder arthroplasty, right Expected: 08/30/2023, Expires: 08/29/[address] [facility] Service Area Work Phone: Comment on above: Expected: 08/30/2023 , Expires: 08/29/2024 Start: 08-27-2023 End: 08-27-2023 Patient encounter procedure 08/27/2023 2:15 PM EDT Office Visit [facility] [address] [place] [phone] Indira Levy MD [address] [facility], [address] [place] [address] [facility] Start: 08-10-2023 Documentation procedure [facility] Start: 08-10-2023 Subsequent hospital visit by physician [facility] [place] Comment on above: Unspecified fracture of upper end of unspecified humerus, initial encounter for closed fracture (Primary Dx) Start: 08-10-2023 End: 08-10-2023 Admission to same day surgery center 08/10/2023 12:10 PM EDT - 08/10/2023 1:50 PM EDT Surgery [facility] [place] [address] [facility] [place] [address] Indira Levy MD [address] [facility], [address] [place] [phone] TOTAL RIGHT ARTHROPLASTY SHOULDER REVERSE POSSIBLE BICEPS TENODESIS [51943 (CPT )] [facility] [place] Comment on above: TOTAL RIGHT ARTHROPL ASTY SHOULDER REVERSE POSSIBLE BICEPS TENODESIS [32754 (CPT )] Start: 08-10-2023 End: 08-10-2023 Arthroplasty [...] procedure 08/09/2023 2:15 PM EDT Office Visit [facility] [address] [place] [phone] Indira Levy MD [address] [facility], [address] [place] [address] [facility] Start: 07-29-2023 End: 07-29-2023 Admission to establishment 07/29/2023 10:00 AM EDT Pre-Admission Testing [facility] [address] [facility] [place] [address] [facility] Start: 07-12-2023 End: 07-12-2023 Patient encounter procedure 07/12/2023 1:30 PM EDT Office Visit [facility] [address] [place] [phone] Indira Levy MD [address] [facility], [address] [place] [address] [facility] Start: 07-02-2023 End: 07-02-2023 Patient encounter procedure 07/02/2023 10:00 AM EST Office Visit [facility] [address] [place] [phone] Sam Gracia MD [address] [place] [address] [facility] Start: 07-02-2023 Subsequent hospital visit by physician 07/02/2023 9:46 AM EST Hospital Encounter [facility] [address] [facility] [address] [place] [phone] Closed 3-part fracture of proximal humerus with routine healing, right [facility] Comment on above: Closed 3-part fractu re of proximal humerus with routine healing, right Start: 06-28-2023 End: 06-27-2024 XR Shoulder - right 2 Views XR shoulder right 2+ views Imaging Routine Closed 3-part fracture of proximal humerus with routine healing, right Expected: 06/28/2023, Expires: 06/27/[address] [facility] Service Area Work Phone: Comment on above: Expected: 06/28/2023 , Expires: 06/27/2024 Start: 06-18-2023 End: 06-18-2024 XR Humerus - right Views [facility] Work Phone: Comment on above: Expected: 06/18/2023 , Expires: 06/18/2024 Once for 1 Occurrenc es starting 06/18/2023 until 06/18/2023 Start: 06-18-2023 End: 06-18-2024 XR Shoulder - right [address] [facility] Service Area Work Phone: Comment on above: Expected: 06/18/2023 , Expires: 06/18/2024 Once for 1 Occurrenc es starting 06/18/2023 until 06/18/2023 Start: 06-18-2023 Subsequent hospital visit by physician 06/18/2023 11:30 AM EST Hospital Encounter [facility] [address] [place] [address] Closed 3-part fracture of proximal humerus with routine healing, right [facility] Comment on above: Closed 3-part fractu re of proximal humerus with routine healing, right Start: 06-18-2023 End: 06-18-2023 Patient encounter procedure 06/18/2023 11:30 AM EST Office Visit [facility] [address] [place] [phone] Sam Gracia MD [address] [place] [address] [facility] Start: 06-12-2023 COVID-19 Vaccine ( season) COVID-19 Vaccine ( season) [facility] Start: 06-09-2023 End: 06-09-2024 XR Humerus - right Views XR humerus right Imaging Routine Right arm fracture, closed, initial encounter Expected: 06/09/2023, Expires: 06/09/[address] [facility] Service Area Work Phone: Comment on above: Expected: 06/09/2023 , Expires: 06/09/2024 Start: 04-26-2023 Behavioral Health Screening Behavioral Health Screening [facility] Start: 04-26-2023 Depression Assessment Depression Ass essment [facility] Start: 03-16-2023 End: 03-16-2023 Patient encounter procedure 03/16/2023 10:00 AM EST Office Visit [facility] [address] [place] [phone] Monica Porter MD [address] [place] [address] [facility] Start: 03-12-2023 Screening for malign ant neoplasm of breast Mammogram [facility] Start: 02-16-2023 ANNUAL PCP TEAM ADJUSTMENT EXAMINER MARYBETH DISEASE VISIT ANNUAL PCP TEAM CHRONIC DISEASE VISIT [facility] Start: 02-16-2023 BP CONTROLLED (<130/80) BP CONTROLLE D (<130/80) [facility] Start: 12-25-2022 Covid-19 Vaccine () Covid-19 Vaccine () [facility] Start: 12-25-2022 Influenza vaccination [facility] Start: 12-01-2022 End: 12-01-2022 Patient encounter procedure 12/01/2022 11:30 AM EDT Office Visit [facility] [address] [facility] [place] [phone] Ingris Albright, RACKMAN [address] [phone] [facility] Start: 09-14-2022 End: 09-14-2022 Patient encounter procedure [facility] Start: 04-26-2022 DEPRESSION ASSESSMENT DEPRESSION ASS ESSMENT [facility] Start: 02-16-2022 End: 04-18-2022 25-hydroxyvitamin D3 [Mass/volume] in Serum or Plasma [facility] Work Phone: Comment on above: Expected: 02/16/2022 , Expires: 04/18/2022 Start: 02-16-2022 End: 04-18-2022 Cobalamin (Vitamin B12) [Mass/volume] in Serum or Plasma [facility] Work Phone: Comment on above: Expected: 02/16/2022 , Expires: 04/18/2022 Start: 02-16-2022 End: 04-18-2022 Comprehensive metabolic 2000 panel - Serum or Plasma [facility] Work Phone: Comment on above: Expected: 02/16/2022 , Expires: 04/18/2022 Start: 02-16-2022 End: 04-18-2022 LIPID PANEL, NONFASTING [facility] Work Phone: Comment on above: Expected: 02/16/2022 , Expires: 04/18/2022 Start: 02-16-2022 End: 04-18-2022 Thyrotropin [Units/volume] in Serum or Plasma [facility] Work Phone: Comment on above: Expected: 02/16/2022 , Expires: 04/18/2022 Start: 12-25-2021 Influenza vaccination Sequenti al Influenza Vaccine (#1) [facility] Start: 11-24-2021 End: 11-24-2021 Patient encounter procedure 11/24/2021 Office Visit Cardiology Peyton Kenyon CNP [address] [place] [address] [facility] Start: 07-26-2021 COVID-19 Vaccine (4 - Booster for Pfizer series) COVID-19 Vaccine (4 - Booster for Pfizer series) [facility] Start: 05-22-2021 COVID-19 VACCINE (4 - Booster for Pfizer series) COVID-19 VACCINE (4 - Booster for Pfizer series) [facility] Start: 05-22-2021 COVID-19 Vaccine (4 - Pfizer series) COVID-19 Vaccine (4 - Pfizer series) [facility] Start: 12-11-2020 COVID-19 Vaccine (3 - Booster for Pfizer series) COVID-19 Vaccine (3 - Booster for Pfizer series) [facility] Start: 05-21-2020 End: 05-21-2020 Office Visit 05/21/2020 Office Visit Cardiology Candice Kiran MD [address] [place] [address] [phone] [facility] Start: 03-04-2020 DIABETES SCREEN DIABETES SCREEN [facility] Start: 02-22-2020 Pneumococcal Vaccine : Age 65+ (2 - PPSV23 or PCV20) Pneumococcal Vaccine: Age 65+ (2 - PPSV23 or PCV20) [facility] Start: 12-26-2019 Influenza vaccinatio n given Sequential Influenza Vaccine (#1) [facility] Start: 12-10-2019 Screening for malign ant neoplasm of breast Mammogram [facility] Start: 12-10-2019 Screening mammography Mammogram [facility] Start: 12-25-2018 Influenza vaccinatio n given [facility] Start: 2018 Respiratory Syncytia l Virus Immunization: Risk, 60-74 Risk, or 75+ (1 - 1-dose 75+ series) Respiratory Syncytial Virus Immunization: Risk, 60-74 Risk, or 75+ (1 - 1-dose 75+ series) [facility] Start: 2018 RSV High Risk: (Elde rly (60+) or Population) (1 - 1-dose 75+ series) RSV High Risk: (Elderly (60+) or Population) (1 - 1-dose 75+ series) [facility] Start: 2018 RSV Vaccine (1 - 1-d ose 75+ series) RSV Vaccine (1 - 1-dose 75+ series) [facility] Start: 12-25-2016 Influenza vaccination SEQUENTI AL INFLUENZA VACCINE (#1) [facility] Work Phone: Start: 08-22-2016 Pneumococcal vaccination PNEUM OCOCCAL VACCINE AGE 65+ (2 of 2 - PPSV23) [facility] Work Phone: Start: 01-03-2012 Administration of he rpes zoster vaccine [facility] Start: 01-03-2012 Shingrix Vaccine (1 of 2) Shingrix Vaccine (1 of 2) [facility] Start: 01-03-2012 SHINGRIX VACCINE (2 of 3) SHINGRIX VACCINE (2 of 3) [facility] Start: 01-03-2012 Zoster Vaccines (2 of 3) Zoste r Vaccines (2 of 3) [facility] Start: 2008 Fall risk assessment Falls Risk Asse ssment [facility] Start: 2008 Pneumococcal vaccination PNEUM OCOCCAL VACCINE AGE 65+ (1 of 2 - PCV13) [facility] Start: 2003 RSV patient s and/or patients aged 60+ years (1 - 1-dose 60+ series) RSV patients and/or patients aged 60+ years (1 - 1-dose 60+ series) [facility] Start: 2003 RSV Vaccine (1 - 1-d ose 60+ series) RSV Vaccine (1 - 1-dose 60+ series) [facility] Start: 1993 Administration of he rpes zoster vaccine Zoster Vaccines (1 of 2) [facility] Start: 1961 Anxiety Screening Anxiety Screening [facility] Start: 1961 Depression Screening Depression Scre ening [facility] Start: 1961 Hepatitis C antibody , confirmatory test Hepatitis C Screening [facility] Start: 1961 Hepatitis C screening Hepatitis C Sc reening [facility] Start: 1961 [facility]PATITIS [facility] Start: 1959 COVID-19 Vaccine (1 of 2) COVID-19 Vaccine (1 of 2) [facility] Start: 1959 COVID-19 Vaccine (1) COVID-19 Vaccin e (1) [facility] Start: 1955 Adolescent depressio n screening assessment Depression Screening (PHQ9) [facility] Start: 1955 Depression screening using PHQ-9 (Patient Health Questionnaire 9) score [facility] Start: 1954 Screening for malign ant neoplasm of cervix Cervical Cancer Screening [facility] Start: 1946 History and physical examination, annual for health maintenance Wellness Visit [facility] Start: 1946 Medicare Wellness Visit Medicare Wel lness Visit [facility] Start: 1943 Screening colonoscopy COLONOSCOPY [facility] Work Phone: Start: 1943 End: 1943 Screening for osteoporosis [facility] Start: 1943 Tetanus vaccination TETANUS EVERY 10 YR [facility] Work Phone: Start: 1943 Fall risk assessment Falls Risk Asse ssment [facility] Start: 1943 Lipid panel Lipid Panel [facility] Start: 1943 Medicare Annual Well ness Visit Medicare Annual Wellness Visit (AWV) [facility] Start: 1943 Protein mass conc Mammogram [facility] Start: 1943 Screening for malign ant neoplasm of colon Colorectal Cancer Screening: Colonoscopy [facility] Start: 1943 Screening mammography Mammogram [facility] Arthroplasty glenohumeral joint total shoulder Arthroplasty Reverse Shoulder Unspecified fracture of upper end of unspecified humerus, initial encounter for closed fracture [facility] Work Phone: End: 05-17-2020 Comprehensive metabolic 2000 panel Comprehensive metabolic panel Lab Routine Essential hypertension with goal blood pressure less than 130/80 1 Occurrences starting 05/17/2019 until 05/17/2020 [facility] Comment on above: 1 Occurrences starti ng 05/17/2019 until 05/17/2020 Electrocardiogram, 12-lead PRN ACS symptoms Electrocardiogram, 12-lead PRN ACS symptoms ECG Routine As needed until discontinued starting 08/10/2023 [facility] Work Phone: Comment on above: As needed until disc ontinued starting 08/10/2023 Excision distal ulna partial/complete Ulna Distal Ward Procedure Spontaneous rupture of extensor tendons, right hand [facility] [place] End: 08-10-2023 Incentive spirometry Instruct Incentive spirometry Instruct Respiratory Care Routine Once for 1 Occurrences starting 08/10/2023 until 08/10/2023 [facility] Work Phone: Comment on above: Once for 1 Occurrenc es starting 08/10/2023 until 08/10/2023 End: 05-17-2020 Lipid 1996 panel Lipid panel Lab Routine Mixed hyperlipidemia 1 Occurrences starting 05/17/2019 until 05/17/2020 [facility] Comment on above: 1 Occurrences starti ng 05/17/2019 until 05/17/2020 [facility] S[facility]ENING [facility] Ra diology Routine Screening mammogram for breast cancer 03/29/2023 10:17 AM EST [facility] Work Phone: End: 09-09-2023 MR Wrist - right WO contrast [facility] Work Phone: Comment on above: Once for 1 Occurrenc es starting 09/09/2023 until 09/09/2023 Screening mammograph y bi 2-view breast inc cad [facility] Radiology Routine Visit for screening mammogram Ordered: 03/09/2022 [facility] Work Phone: Comment on above: Ordered: 03/09/2022 End: 06-10-2023 XR Humerus - right Views [facility] Work Phone: Comment on above: Once for 1 Occurrenc es starting 06/10/2023 until 06/10/2023 End: 07-02-2023 XR Shoulder - right 2 Views [facility] Work Phone: Comment on above: Once for 1 Occurrenc es starting 07/02/2023 until 07/02/2023 End: 08-31-2023 XR Shoulder - right [address] [facility] Service Area Work Phone: Comment on above: Once for 1 Occurrenc es starting 08/31/2023 until 08/31/2023 End: 11-12-2023 XR Shoulder - right [address] [facility] Service Area Work Phone: Comment on above: Once for 1 Occurrenc es starting 11/12/2023 until 11/12/2023 [facility] Immunizations Immunization Date Immunization Notes Care Provider [facility] 02-01-2024 influenza virus vacc ine, unspecified formulation Candice Kiran MD Work Phone: [facility] 02-09-2023 influenza virus vacc ine, unspecified formulation Chyna Grimm APRN.[facility] Work Phone: [facility] 02-16-2022 pneumococcal Conjuga te, unspecified formulation Trace Mendiola DO Work Phone: [facility] Work Phone: 02-16-2022 pneumococcal (PCV20) vaccine, 20 valent (PREVNAR 20) Trace Mendiola DO Work Phone: [facility] Work Phone: 01-29-2022 influenza virus vacc ine, unspecified formulation Screen Wstr [facility] 07-11-2020 COVID-19 original vaccine, age 12+ yr, monovalent (PFIZER-BIONTECH - PURPLE TOP) Trace Mendiola DO Work Phone: [facility] 06-20-2020 COVID-19 original vaccine, age 12+ yr, monovalent (PFIZER-BIONTECH - PURPLE TOP) Trace Mendiola DO Work Phone: [facility] Work Phone: 02-07-2017 influenza, high dose seasonal, preservative-free Trace Mendiola DO Work Phone: [facility] 08-30-2015 tetanus toxoid, redu edmundo diphtheria toxoid, and acellular pertussis vaccine, adsorbed Trace Mendiola DO Work Phone: [facility] Work Phone: 08-23-2015 pneumococcal conjuga te vaccine, 13 valent Trace Mendiola DO Work Phone: [facility] Work Phone: 02-19-2015 influenza, high dose seasonal, preservative-free Trace Mendiola DO Work Phone: [facility] Work Phone: 11-08-2011 zoster vaccine, live Trace Mendiola DO Work Phone: [facility] Work Phone: 08-02-2011 pneumococcal polysaccharide vaccine, 23 valent Trace Mendiola DO Work Phone: [facility] Work Phone: Payers Date Payer Category Payer Self-pay 2018 Medicare (Managed Care) 1.2. [id number] 2014 Medicare HUMANA MANAGED M [employer] HUMANA [facility] ADVANTAGE CHOICE PPO xxxxxxxxx 2014-Present xxxxxxxxx [id number] 2014 Medicare HUMANA MANAGED M [employer]IC[employer]NA [facility] ADVANTAGE CHOICE PPO [id number] 2014-Present [id number] 2014 Medicare [id number] [id number]. [id number] 2014 Medicare PPO HUMANA JANET ROSARIO CHOICE PPO [id number] 2014 Medicare [id number] 2.16.840.1.249805.3.249. 13 1943 Unknown [id number] 2.16.840.1.705207.3.579. 2.903 1943 Unknown [id number] 2.16.840.1.498747.3.579. 2.124 1943 Unknown [id number] 2.16.840.1.615641.3.579. 2.124 1943 Unknown [id number] 2.16.840.1.735950.3.579. 2.1243 1943 Unknown [id number] 2.16.840.1.560868.3.579. 2.124 1943 Unknown [id number] 2.16.840.1.173932.3.579. 2.124 1943 Unknown [id number] 2.16.840.1.703357.3.579. 2.124 1943 Unknown [id number] 2.16.840.1.419960.3.579. 2.1243 1943 Unknown [id number] 2.16.840.1.706760.3.579. 2.124 1943 Unknown [id number] 2.16.840.1.369141.3.579. 2.1243 1943 Unknown [id number] 2.16.840.1.984705.3.579. 2.3 1943 Unknown [id number] 2.16.840.1.182431.3.579. 2.3 1943 Unknown [id number] 2.16.840.1.306624.3.579. 2.3 1943 Unknown [id number] 2.16.840.1.192237.3.579. 2.124 1943 Unknown [id number] 2.16.840.1.880408.3.579. 2.1242 1943 Unknown [id number] 2.16.840.1.912549.3.579. 2.1242 1943 Unknown [id number] 2.16.840.1.588992.3.579. 2.1242 1943 Unknown [id number] 2.16.840.1.040686.3.579. 2.1242 1943 Unknown [id number] 2.16.840.1.192846.3.579. 2.1242 1943 Unknown [id number] 2.16.840.1.971925.3.579. 2.3 1943 Unknown [id number] 2.16.840.1.284763.3.579. 2.1242 1943 Unknown [id number] 2.16.840.1.802580.3.579. 2.1243 1943 Unknown [id number] 2.16.840.1.444391.3.579. 2.1242 1943 Unknown [id number] 2.16.840.1.875809.3.579. 2.3 1943 Unknown [id number] 2.16.840.1.804338.3.579. 2.1242 1943 Unknown [id number] 2.16.840.1.474983.3.579. 2.3 1943 Unknown [id number] 2.16.840.1.589643.3.579. 2.1242 1943 Unknown [id number] 2.16.840.1.173427.3.579. 2.1242 1943 Unknown [id number] 2.16.840.1.679181.3.579. 2.1242 1943 Unknown [id number] 2.16.840.1.356956.3.579. 2.1242 1943 Unknown [id number] 2.16.840.1.088285.3.579. 2.1242 1943 Unknown [id number] 2.16.840.1.450424.3.579. 2.1242 1943 Unknown [id number] 2.16.840.1.357679.3.579. 2.1242 1943 Unknown [id number] 2.16.840.1.159251.3.579. 2.1242 1943 Unknown [id number] 2.16.840.1.764189.3.579. 2.1242 1943 Unknown [id number] 2.16.840.1.901157.3.579. 2.1242 1943 Unknown [id number] 2.16.840.1.757897.3.579. 2.1242 1943 Unknown [id number] 2.16.840.1.511344.3.579. 2.1242 1943 Unknown [id number] 2.16.840.1.244107.3.579. 2.1242 1943 Unknown [id number] 2.16.840.1.631791.3.579. 2.1242 1943 Unknown [id number] 2.16.840.1.919397.3.579. 2.1246 1943 Unknown [id number] 2.16.840.1.419751.3.579. 2.6 1943 Unknown [id number] 2.16.840.1.908403.3.579. 2.1246 1943 Unknown [id number] 2.16.840.1.105668.3.579. 2.1245 1943 Unknown [id number] 2.16.840.1.793135.3.579. 2.1246 1943 Unknown [id number] 2.16.840.1.745877.3.579. 2.1245 1943 Unknown [id number] 2.16.840.1.523128.3.579. 2.1245 1943 Unknown [id number] 2.16.840.1.737292.3.579. 2.124 1943 Unknown [id number] 2.16.840.1.509481.3.579. 2.1245 1943 Unknown [id number] 2.16.840.1.117613.3.579. 2.1245 1943 Unknown [id number] 2.16.840.1.296143.3.579. 2.1245 1943 Unknown [id number] 2.16.840.1.876873.3.579. 2.1245 1943 Unknown [id number] 2.16.840.1.754799.3.579. 2.3 1943 Unknown [id number] 2.16.840.1.225856.3.579. 2. 1943 Unknown [id number] 2.16.840.1.426002.3.579. 2.903 1943 Unknown [id number] 2.16.840.1.914334.3.579. 2.903 1943 Unknown [id number] 2.16.840.1.651613.3.579. 2.983 1943 Unknown [id number] 2.16.840.1.381870.3.579. 2.983 1943 Unknown [id number] 2.16.840.1.160398.3.579. 2.983 Unknown [id number] 2.16.840.1.776878.3.579. 2.462 Unknown [id number] 2.16.840.1.314225.3.579. 2.462 Unknown [id number] 2.16.840.1.048490.3.579. 2.462 Unknown [id number] 2.16.840.1.083384.3.579. 2.462 Social History Date Type Detail Facility Start: 05-18-2017 End: 02-16-2022 Tobacco smoking status [facility] Never smoker [facility] Start: 1945 Sex Assigned At Not on file [employer] Work Phone: Start: 05-17-2019 End: 12-08-2024 Alcohol intake Current non-drinker of alcohol (finding) [facility] Start: 05-17-2019 End: 02-16-2022 Tobacco use and exposure Never used [facility] Start: 11-14-2021 End: 08-14-2024 Exposure to SARS-CoV-2 (event) Not sure [facility] Start: 05-18-2017 End: 07-13-2023 Cigarette pack-years [facility] Start: 02-16-2022 History SDOH Alcohol Frequency 1 [facility] Start: 02-16-2022 History SDOH Alcohol Std Drinks 0 [facility] Start: 02-16-2022 History SDOH Social Connections Phone 98 [facility] Start: 02-16-2022 History SDOH Social Connections Faith 3 [facility] Start: 02-16-2022 History SDOH Social Connections Living 4 [facility] Start: 02-16-2022 History SDOH Transport Med 2 [facility] Start: 11-24-2021 End: 07-13-2023 Tobacco use panel [facility] Start: 05-29-2013 In a typical week, h ow many times do you talk on the telephone with family, friends, or neighbors? Patient refused [facility] Are you now , , , , never or living with a partner? [facility] How often to you hav e a drink containing alcohol? Never [facility] (I/We) worried wheth er (my/our) food would run out before (I/we) got money to buy more. Never true [facility] In the past 12 month s, was there a time when you were not able to pay the mortgage or rent on time? No [facility] Start: 06-10-2023 End: 01-05-2024 Alcohol intake Lifetime non-drinker (finding) [facility] Work Phone: Do you belong to any clubs or organizations such as jainism groups, unions, fraternal or athletic groups, or school groups? Yes [facility] Do you feel stress - tense, restless, nervous, or anxious, or unable to sleep at night because your mind is troubled all the time - these days [OSQ] Not at all [facility] Tobacco smoking stat us MOIS Unknown if ever smoked [facility] Work Phone: Start: 1945 Sex Assigned At Female [facility] Medical Equipment Procedure Code Equipment Code Equipment Origin al Text Equipment Identifier Dates Lens, Intraocula r, Sn60wf 21.5 Case [id number] Start: 01-04-2020 Comment on above: Description: Convert ed from [facility]. Please see archived information for full log information. Lens, Intraocula r, Sn60wf 21.0 Case [id number] Start: 01-18-2020 Comment on above: Description: Convert ed from [facility]. Please see archived information for full log information. Baseplate, Lateralized, +3mm, 25mm - [id number] - [id number] Start: 08-10-2023 Insert, Reversed , 36mm X 9 X 12.5 - [id number] - [id number] Start: 08-10-2023 Tray, Ascend Fle x Reversed Th 0ec 0 - [id number] - [id number] Start: 08-10-2023 Screw, Perform Reversed Peripheral, 5.0 X 38mm - [id number] Start: 08-10-2023 Screw, Perform Reversed Peripheral, 5.0 X 18mm - [id number] Start: 08-10-2023 Post, Perform Reversed, Press-Fit, Short, 7mm - [id number] - [id number] Start: 08-10-2023 Flex Shoulder Sy s Revinsert [id number] Start: 08-10-2023 98mm 3b Lamont Aequalis Ascend Flex Long Ptc Humeral Stem 132.5-Deg (Formerly Tornier) [id number] Start: 08-10-2023 Peripscrew [id number] Start: 08-10-2023 Humeral Stem [id number] Start: 08-10-2023 Glenosphere [id number] Start: 08-10-2023 Functional Status Date Assessment Result Facility 12-08-2024 Total score [AUDIT-C] 0 12/09/19 25 10:08 AM Estrellita Mercado MA [facility] 07-11-2014 Are you deaf, or do you have serious difficulty hearing No 07/11/2014 3:32 PM Noami Sarkar LPN No [facility] 07-11-2014 Are you blind, or do you have serious difficulty seeing, even when wearing glasses No 07/11/2014 3:32 PM Naomi Sarkar LPN No [facility] 07-11-2014 Do you have serious difficulty walking or climbing stairs No 07/11/2014 3:32 PM Naomi Sarkar LPN No [facility] 07-11-2014 Do you have difficul ty dressing or bathing No 07/11/2014 3:32 PM Naomi Sarkar LPN No [facility] 07-11-2014 Because of a physica l, mental, or emotional condition, do you have difficulty doing errands alone such as visiting a physician's office or shopping No 07/11/2014 3:32 PM Naomi Sarkar LPN No [facility] Mental Status Date Assessment Result Facility 07-11-2014 Because of a physica l, mental, or emotional condition, do you have serious difficulty concentrating, remembering, or making decisions No 07/11/2014 3:32 PM EDT Naomi Wilson LPN No [facility] Clinical Notes 02-07-2016 to 12-20-2024 Hortencia Millard MA - 12/20/2024 10:41 AM EDTPatient Lyndsey Mcdonald APRN.RACKMAN - 12/08/2024 10:20 AM EDTTelephone Encounter - Kevin Lacey MA - 11/08/2024 8:17 AM EDT Note Date & Type Note Facility 12-20-2024 Note HNO ID: [id number] Author: HORTENCIA MILLARD MA Service: ? Author Type: Programs Assistant Type: Progress Notes Filed: 12/20/2024 10:41 Note Text: POPULATION HEALTH NAVIGATION OUTREACH Action/FYI Pt is scheduled for appt in 2025 updated appt notes Reason for Outreach Care Gap/HCC or Scheduling Wellness Visits Care Gaps due: N/A Patient Contacted: Unable or unnecessary to reach patient: Patient already scheduled Updated appointment notes Chart Review only Navigation Signature: Hortencia Millard MA December 20, 2024 10:41 AM [facility] 12-20-2024 History of Presen t illness Narrative POPULATION HEALTH NAVIGATION OUTREACH Action/FYI Pt is scheduled for appt in 2025 updated appt notes Reason for Outreach Care Gap/HCC or Scheduling Wellness Visits Care Gaps due: N/A Patient Contacted: Unable or unnecessary to reach patient: Patient already scheduled Updated appointment notes Chart Review only Navigation Signature: Hortencia Millard MA December 20, 2024 10:41 AM documented in this encounter [facility] 12-20-2024 Note Patient Outreach (DEZ TNAV) FELISHA JOAQUIN ([id number]) 1945 F Date Time Provider Department 12/20/24 HORTENCIA MILLARD During your visit today, we recorded the following information about you: Hortencia Millard MA 12/20/2024 10:41 AM Signed POPULATION HEALTH NAVIGATION OUTREACH Action/FYI Pt is scheduled for appt in 2025 updated appt notes Reason for Outreach Care Gap/HCC or Scheduling Wellness Visits Care Gaps due: N/A Patient Contacted: Unable or unnecessary to reach patient: Patient already scheduled Updated appointment notes Chart Review only Navigation Signature: Hortencia Millard MA December 20, 2024 10:41 AM Allergies As of Date: 12/20/2024 (No Known Allergies) Date Reviewed: 12/08/2024 Reviewed by: Lyndsey Neumann APRN.RACKMAN - Fully Assessed Reason for Visit: Population Health Navigation Outreach [3910] Cmt: [facility] Sprint list Prescriptions as of 12/20/2024 - furosemide (LASIX) 40 mg tablet Take 1 tablet by mouth once daily. - folic acid 1 mg tablet Take 1 tablet by mouth once daily. - pantoprazole DR (PROTONIX) 40 mg tablet Take 1 tablet by mouth once daily. - ferrous sulfate 325 mg (65 mg iron) tablet Take 1 tablet by mouth two times a week. - methotrexate 2.5 mg tablet Take 7 tablets by mouth one time a week. - prednisoLONE acetate (PRED FORTE, ECONOPRED PLUS) [...] - KLOR-CON 10 10 mEq tablet - enalapril (VASOTEC) 2.5 mg tablet Take [...] once daily. Problem List As Of Date 12/20/2024 Noted Resolved OA (osteoarthritis) of knee [M17.9] [...] Obesity, Class III, BMI 40-49.9 (morbid obesity*09/06/2017 12/08/2024 Epiretinal membrane (ERM) of both eyes [H35.373]10/13/2019 Essential hypertension [I10] 10/13/2019 Hemangioma of eyelid [D18.01] 10/13/2019 Status post cataract extraction and insertion o*01/19/2020 Status post cataract extraction and insertion o*01/19/2020 Dyslipidemia [E78.5] 02/17/2022 Fatigue [R53.83] 02/17/2022 Vitamin D deficiency [E55.9] 02/17/2022 Medicare annual wellness visit, subsequent [Z00*02/17/2022 Obesity, Class II, BMI 35-39.9 [E66.812] 12/08/2024 Encounter Status:Closed by HORTENCIA CHUNG on 12/20/24 [facility] 12-08-2024 Instructions Lyndsey Neumann APRN.CRESENCIO - 12/08/2024 10:36 AM EDT Increase water intake especially with iron, can cause constipation Get your labs drawn today on way out documented in this encounter [facility] 12-08-2024 History of Presen t illness Narrative This is a 79 year old female who presents today with: Felisha Joaquin is an 79-year-old female with a history of anemia, presenting for a 6-month follow-up and medication refills. HISTORY OF PRESENT ILLNESS: Follow-Up Visit: - No current concerns. Anemia: - Chronic condition. - Started taking iron supplements twice per week at advise from Dr Gunter since September Weight Management: - Weight up 3# from May, but overall down 17# since June 2023 HTN Controlled Last BP Last 14 Encounter BP Readings: Date: BP: 12/08/2024 132/86 06/01/2024 122/62 09/28/2023 136/82 07/13/2023 136/78 02/16/2022 110/80 01/10/2020 138/77 01/05/2020 138/77 12/13/2019 138/77 10/24/2019 197/78 10/13/2019 126/74 03/08/2018 128/70 11/12/2017 120/80 07/09/2017 124/72 04/16/2017 146/80 GERD Controlled on pantoprazole and dietary restrictions Rheumatoid arthritis Follows with Dr Gunter PAST MEDICAL HISTORY: PAST MEDICAL HISTORY Diagnosis Date Acid reflux Arrhythmia Arthritis Coronary artery disease Does use hearing aid Heart attack (HCC) Hypertension Osteopenia 07/2013 left hip on DEXA Rash of face S/P YAG capsulotomy, left 08/12/2022 Seasonal allergies Snoring PAST SURGICAL HISTORY Procedure Laterality Date COLONOSCOPY 2005 small polyp COLONOSCOPY FLX DX W/COLLJ SPEC [...] Cataract Extraction with PC IOL 21.0 D ALLERGIES Patient has no known allergies. MEDICATIONS Current Outpatient Medications Medication Sig methotrexate 2.5 mg tablet Take 7 tablets by mouth one time a week. prednisoLONE acetate (PRED FORTE, ECONOPRED PLUS) 1 [...] (sinus/cold symptoms). KLOR-CON 10 10 mEq tablet enalapril (VASOTEC) 2.5 mg tablet Take 2.5 [...] Take 500 mg by mouth once daily. furosemide (LASIX) 40 mg tablet Take 1 tablet by mouth once daily. folic acid 1 mg tablet Take 1 tablet by mouth once daily. pantoprazole DR (PROTONIX) 40 mg tablet Take 1 tablet by mouth once daily. ferrous sulfate 325 mg (65 mg iron) tablet Take 1 tablet by mouth two times a week. No current facility-administered medications for this visit. FAMILY HISTORY Problem Relation Age of Onset Arthritis Mother Heart Mother Hypertension Mother Arthritis Father Heart Father Hypertension Father Cancer Sister Breast Cancer Sister 56 No Ocular Disease No Family History Diabetes No Family History SOCIAL HISTORY[1] REVIEW OF SYSTEMS See HPI EXAM: BP 132/86 (BP Site: Left Arm, BP Position: Sitting, BP Cuff Size: Regular Adult) Pulse 70 Resp 16 Wt 100 kg (220 lb 6.4 oz) BMI 35.85 kg/m PHYSICAL EXAM: General Appearance: Well appearing, alert, in no acute distress, well-hydrated, well nourished.. Lungs: Lungs clear to auscultation. No wheezing, rhonchi, rales.. Heart: RRR without murmur, gallop, or rubs. No ectopy . ASSESSMENT/PLAN: 1. Essential hypertension - ICD9: 401.9, ICD10: I10 (primary diagnosis) - Controlled - Encouraged sodium restriction, DASH or Mediterranean diet - Recommend regular aerobic exercise as tolerated, light - BASIC METABOLIC PANEL - FUROSEMIDE 40 MG TABLET - COMPLETE BLOOD COUNT - LIPID PANEL, NONFASTING 2. Bilateral lower extremity edema - ICD9: 782.3, ICD10: R60.0 - controlled, support hose on, nonpitting but present in lower legs , ankles - BASIC METABOLIC PANEL - FUROSEMIDE 40 MG TABLET refilled 3. Dyslipidemia - ICD9: 272.4, ICD10: E78.5 - Control undetermined, due for labs - Counseled on healthy diet and regular exercise 4. Iron deficiency anemia, unspecified iron deficiency anemia type - ICD9: 280.9, ICD10: D50.9 - FERROUS SULFATE 325 MG (65 MG IRON) TABLET- taking an iron supplement twice per week per RA physician - COMPLETE BLOOD COUNT 5. Gastroesophageal reflux disease without esophagitis - ICD9: 530.81, ICD10: K21.9 - PANTOPRAZOLE 40 MG TABLET,DELAYED RELEASE refilled 6. Obesity, Class II, BMI 35-39.9 - ICD9: 278.00, ICD10: E66.812 Stable - BASIC METABOLIC PANEL 7. Screening for depression - ICD9: V79.0, ICD10: Z13.31 - DEPRESSION SCREENING 8. Encounter for screening examination for other mental health and behavioral disorders - ICD9: V79.8, ICD10: Z13.39 - ANXIETY SCREENING 9. Elevated antinuclear antibody (NOEMY) level - ICD9: 795.79, ICD10: R76.8 10. Elevated rheumatoid factor - ICD9: 795.79, ICD10: R76.8 - FOLIC ACID 1 MG TABLET Discussed treatment plan and patient voices understanding. Patient's questions answered appropriately. Medications and potential side effects were discussed and patient voices understanding. Return to the office as scheduled or as needed for worsening/no improvement. Lyndsey Neumann APRN.CNP Recording using [employer] software for draft documentation of the visit was discussed with the patient/authorized denial management representative; all questions welcomed and answered. Patient/authorized denial management representative agreed to proceed [1] Social History Tobacco Use Smoking status: Never Smokeless tobacco: Never Vaping Use Vaping status: Never Used Substance Use Topics Alcohol use: No Drug use: Never documented in this encounter [facility] 12-08-2024 Note HNO ID: [id number] Author: LYNDSEY NEUMANN APRN.CNP Service: ? Author Type: Nurse Practitioner Type: Progress Notes Filed: 12/08/2024 10:57 Note Text: This is a 79 year old female who presents today with: Felisha Joaquin is an 79-year-old female with a history of anemia, presenting for a 6-month follow-up and medication refills. HISTORY OF PRESENT ILLNESS: Follow-Up Visit: - No current concerns. Anemia: - Chronic condition. - Started taking iron supplements twice per week at advise from Dr Gunter since September Weight Management: - Weight up 3# from May, but overall down 17# since June 2023 HTN Controlled Last BP Last 14 Encounter BP Readings: Date: BP: 12/08/2024 132/86 06/01/2024 122/62 09/28/2023 136/82 07/13/2023 136/78 02/16/2022 110/80 01/10/2020 138/77 01/05/2020 138/77 12/13/2019 138/77 10/24/2019 197/78 10/13/2019 126/74 03/08/2018 128/70 11/12/2017 120/80 07/09/2017 124/72 04/16/2017 146/80 GERD Controlled on pantoprazole and dietary restrictions Rheumatoid arthritis Follows with Dr Gunter PAST MEDICAL HISTORY: PAST MEDICAL HISTORY Diagnosis Date Acid reflux Arrhythmia Arthritis Coronary artery disease Does use hearing aid Heart attack (HCC) Hypertension Osteopenia 07/2013 left hip on DEXA Rash of face S/P YAG capsulotomy, left 08/12/2022 Seasonal allergies Snoring PAST SURGICAL HISTORY Procedure Laterality Date COLONOSCOPY [...] Cataract Extraction with PC IOL 21.0 D ALLERGIES Patient has no known allergies. MEDICATIONS Current Outpatient Medications Medication Sig methotrexate 2.5 mg tablet Take 7 tablets by mouth one time a week. prednisoLONE acetate (PRED FORTE, ECONOPRED PLUS) 1 [...] (sinus/cold symptoms). KLOR-CON 10 10 mEq tablet enalapril (VASOTEC) 2.5 mg tablet Take 2.5 [...] Take 500 mg by mouth once daily. furosemide (LASIX) 40 mg tablet Take 1 tablet by mouth once daily. folic acid 1 mg tablet Take 1 tablet by mouth once daily. pantoprazole DR (PROTONIX) 40 mg tablet Take 1 tablet by mouth once daily. ferrous sulfate 325 mg (65 mg iron) tablet Take 1 tablet by mouth two times a week. No current facility-administered medications for this visit. FAMILY HISTORY Problem Relation Age of Onset Arthritis Mother Heart Mother Hypertension Mother Arthritis Father Heart Father Hypertension Father Cancer Sister Breast Cancer Sister 56 No Ocular Disease No Family History Diabetes No Family History SOCIAL HISTORY[1] REVIEW OF SYSTEMS See HPI EXAM: BP 132/86 (BP Site: Left Arm, BP Position: Sitting, BP Cuff Size: Regular Adult) Pulse 70 Resp 16 Wt 100 kg (220 lb 6.4 oz) BMI 35.85 kg/m? PHYSICAL EXAM: General Appearance: Well appearing, alert, in no acute distress, well-hydrated, well nourished.. Lungs: Lungs clear to auscultation. No wheezing, rhonchi, rales.. Heart: RRR without murmur, gallop, or rubs. No ectopy . ASSESSMENT/PLAN: 1. Essential hypertension - ICD9: 401.9, ICD10: I10 (primary diagnosis) - Controlled - Encouraged sodium restriction, DASH or Mediterranean diet - Recommend regular aerobic exercise as tolerated, light - BASIC METABOLIC PANEL - FUROSEMIDE 40 MG TABLET - COMPLETE BLOOD COUNT - LIPID PANEL, NONFASTING 2. Bilateral lower extremity edema - ICD9: 782.3, ICD10: R60.0 - controlled, support hose on, nonpitting but present in lower legs , ankles - BASIC METABOLIC PANEL - FUROSEMIDE 40 MG TABLET refilled 3. Dyslipidemia - ICD9: 272.4, ICD10: E78.5 - Control undetermined, due for labs - Counseled on healthy diet and regular exercise 4. Iron deficiency anemia, unspecified iron deficiency anemia type - I (more content not included)... [facility] 11-08-2024 Telephone encounter Note Patient was recently seen 09/29/24. Refill appropriate. [facility] 11-08-2024 Miscellaneous Notes Patient was recently seen 09/29/24. Refill appropriate. documented in this encounter [facility] 09-29-2024 History of Presen t illness Narrative OFFICE CONSULTATION NOTE [facility] [address]) [facility] [address] [facility] [phone] Physicians: Trace Mendiola, (Family); No ref. provider found (Referring) Subjective: I had the pleasure of seeing Ms. Felisha Joaquin at the [facility] [place] office on 09/29/2024. Ms. Joaquin is a [...] Hyperlipidemia Hypertension Non-ST elevation myocardial infarction (NSTEMI) ([facility]) 03/2014 Osteoarthritis Past Surgical History: Procedure Laterality [...] ECG (02/15/2024): Normal sinus rhythm with normal CA and QT intervals, right bundle branch block. [...] us for further evaluation. Candice Kiran MD, [facility] 09/29/2024 documented in this encounter [facility] 09-29-2024 Note OFFICE CONSULTATION NOTE [facility] [address] [facility] [address] [facility] [phone] Physicians: Trace Mendiola, (Family); No ref. provider found (Referring) Subjective: I had the pleasure of seeing Ms. Felisha Joaquin at the [facility] [place] office on 09/29/2024. Ms. Joaquin is a [...] Hyperlipidemia Hypertension Non-ST elevation myocardial infarction (NSTEMI) ([facility]) 03/2014 Osteoarthritis Past Surgical History: Procedure Laterality [...] Extraocular movements intact. (more content not included)... [facility] 09-29-2024 Instructions Janina Mckeon RN - 09/29/2024 [...] your care team or the office at [phone]. Please include medication name, pharmacy name, and specify 30-day or 90-day supply. Please check with your pharmacy within 24 hours of request for your refill. You must follow up as directed to continue current refills. Thank you! documented in this encounter [facility] 08-14-2024 History of Presen t illness [...] Maryam Levy MD documented in this encounter [facility] Work Phone: 08-07-2024 History of Presen t [...] artificial shoulder joint COMPARISON: None. ACCESSION NUMBER(S): [id number] ORDERING CLINICIAN: INDIRA LEVY FINDINGS: Three views [...] Levy III 08/07/2024 3:39 PM Dictation workstation: [id number] XR shoulder right 2+ views Result Date: 11/13/2023 Interpreted By: Lacy Montoya, STUDY: Right shoulder 3 views. INDICATION: Signs/Symptoms:pain. COMPARISON: 09/24/2023. ACCESSION NUMBER(S): [id number] ORDERING CLINICIAN: INDIRA LEVY FINDINGS: Patient is status post right reverse total shoulder arthroplasty for proximal humeral fracture. Hardware is intact without perihardware fractures or lucencies. No malalignment. 1. Right reverse total shoulder arthroplasty without hardware complication. Signed by: Lacy Montoya 11/13/2023 9:51 AM Dictation workstation: [id number] Assessment Patient status post right reverse total [...] having any issues documented in this encounter [facility] Work Phone: 06-01-2024 Telephone encounter Note Noted, thank you. I have updated our medication list. Thank you, Kaylen Best APRN.RACKMAN [facility] 06-01-2024 Miscellaneous Notes Noted, thank you. I have updated our medication list. Thank you, Kaylen Best APRN.RACKMAN Pt saw Kaylen this morning and was to call in with her dose of Methotrexate. Pt has 2.5 mg tablets and takes 7 tablets once a week on Saturdays. documented in this encounter [facility] 06-01-2024 Telephone encounter Note Pt saw Kaylen this morning and was to call in with her dose of Methotrexate. Pt has 2.5 mg tablets and takes 7 tablets once a week on Saturdays. [facility] 06-01-2024 Note HNO ID: [id number] Author: KAYLEN BEST APRN.CNP Service: ? Author [...] refilled. Recent lab work reviewed. Kaylen Best APRN.[facility] 06-01-2024 History of Presen t illness Narrative [...] refilled. Recent lab work reviewed. Kaylen Best APRN.RACKMAN documented in this encounter [facility] 05-29-2024 Note HNO ID: [id number] Author: ?, ?, ? Service: ? Author Type: ? Type: Progress Notes Filed: 05/29/2024 08:25 Note Text: Felisha Joaquin is identified through a medication adherence outreach initiative based on pharmacy claims data from [employer] (insurer) for STEPHIE medication(s). Patient is reviewed [...] fill date per reconcile dispense Natasha Echeverria [facility] 05-29-2024 History of Presen t illness Narrative Felisha Joaquin is identified through a medication adherence outreach initiative based on pharmacy claims data from [employer] (insurer) for STEPHIE medication(s). Patient is reviewed [...] dispense Natasha Echeverria documented in this encounter [facility] 05-29-2024 Note Patient Outreach ([facility]) FELISHA JOAQUIN ([id number]) 1945 F Date Time Provider Department 05/29/24 [facility] During your visit today, we recorded the following information about you: Natasha Echeverria 05/29/2024 8:25 AM Signed Felisha Joaquin is identified through a medication adherence outreach initiative based on pharmacy claims data from [employer] (insurer) for STEPHIE medication(s). Patient is reviewed [...] Date Reviewed: 09/28/2023 Reviewed by: Chyna Grimm APRN.RACKMAN - Fully Assessed Reason for Visit: Allied [...] Encounter Status:Closed by NATASHA ECHEVERRIA on 05/29/24 [facility] 03-03-2024 Telephone encounter Note Prescription [...] Take 1 tablet by mouth once daily. Mara Mares LPN March 03, 2024 7:07 AM [facility] 03-03-2024 Miscellaneous Notes Prescription Refill Information The [...] Take 1 tablet by mouth once daily. Mara Mares LPN March 03, 2024 7:07 AM documented in this encounter [facility] 02-24-2024 Note HNO ID: [id number] Author: GUERDA GUERRERO MA Service: ? Author Type: Programs Assistant Type: Progress Notes Filed: 02/24/2024 14:05 Note [...] Wellness Visit Controlling Blood Pressure 05/31/2024 in [facility] with TRACE MENDIOLA - medicare wellness, hcc gap closure, bp, pt requesting shingles vaccine if possible HCC related Navigation Signature: Guerda Guerrero MA February 24, 2024 2:03 PM [facility] 02-24-2024 History of Presen t [...] Wellness Visit Controlling Blood Pressure 05/31/2024 in [facility] with TRACE MENDIOLA - medicare wellness, hcc gap closure, bp, pt requesting shingles vaccine if possible HCC related Navigation Signature: Guerda Guerrero MA February 24, 2024 2:03 PM documented in this encounter [facility] 02-24-2024 Note Patient Outreach ([facility]) FELISHA JOAQUIN ([id number]) 1945 F Date Time Provider Department 02/24/24 [...] Wellness Visit Controlling Blood Pressure 05/31/2024 in [facility] with TRACE MENDIOLA - medicare wellness, hcc gap closure, bp, pt requesting shingles vaccine if possible HCC related Navigation Signature: Guerda Guerrero MA February 24, 2024 2:03 PM Allergies As of Date: 02/24/2024 (No Known Allergies) Date Reviewed: 09/28/2023 Reviewed by: Chyna Grimm APRN.RACKMAN - Fully Assessed Reason for Visit: Population Health Navigation Outreach [3910] Cmt: Leelaemperatriz iris mina Prescriptions as of 02/24/2024 - furosemide [...] Encounter Status:Closed by GUERDA GUERRERO on 02/24/24 [facility] 02-15-2024 Note OFFICE CONSULTATION NOTE [facility] [address] [facility] [address] [facility] [address] Physicians: Trace Mendiola, (Family); No ref. provider found (Referring) Subjective: I had the pleasure of seeing Ms. Felisha Joaquin at the [facility] [place] office on 02/14/2024. Ms. Joaquin is a [...] Hyperlipidemia Hypertension Non-ST elevation myocardial infarction (NSTEMI) ([facility]) 03/2014 Osteoarthritis Past Surgical History: Procedure Laterality [...] atraumatic. Nose: Nose (more content not included)... [facility] 01-17-2024 Note [facility] [address] [facility] [address] [place] [address] [facility] [address] Dept: [phone] MD Felisha Eller 78 y.o. female Patient presents with a [...] Hyperlipidemia Hypertension Non-ST elevation myocardial infarction (NSTEMI) ([facility]) 03/2014 Osteoarthritis Current Outpatient Medications: ascorbic acid, [...] Resource Strain: Low Risk (08/10/2023) Received from [facility] Overall Financial Resource Strain (CARDIA) Difficulty of Paying Living Expenses: Not hard at all Received from [facility] Hunger Vital Sign Transportation Needs: No Transportation Needs (08/10/2023) Received from [facility] PRAPARE - Transportation Lack of Transportation (Medical): No Lack of Transportation (Non-Medical): No Physical Activity: Unknown (02/16/2022) Received from [facility] Exercise Vital Sign Days of Exercise per Week: Patient declined Minutes of Exercise per Session: Patient declined Social Connections: Unknown (02/16/2022) Received from [facility] Social Connection and Isolation Panel [NHANES] Frequency of Communication with Friends and Family: Patient declined Frequency of Social Gatherings with Friends and Family: Patient declined Attends Restorationism Services: More than 4 times per year [...] formed, no les (more content not included)... [facility] 01-17-2024 History of Presen t illness Narrative [address] [facility] [address] [place] [address] [facility] [address] Dept: [phone] MD Felisha Eller 78 y.o. female Patient presents with a [...] Hyperlipidemia Hypertension Non-ST elevation myocardial infarction (NSTEMI) ([facility]) 03/2014 Osteoarthritis Current Outpatient Medications: ascorbic acid, [...] Resource Strain: Low Risk (08/10/2023) Received from [facility] Overall Financial Resource Strain (CARDIA) Difficulty of Paying Living Expenses: Not hard at all Received from [facility] Hunger Vital Sign Transportation Needs: No Transportation Needs (08/10/2023) Received from [facility] PRAPARE - Transportation Lack of Transportation (Medical): No Lack of Transportation (Non-Medical): No Physical Activity: Unknown (02/16/2022) Received from [facility] Exercise Vital Sign Days of Exercise per Week: Patient declined Minutes of Exercise per Session: Patient declined Social Connections: Unknown (02/16/2022) Received from [facility] Social Connection and Isolation Panel [NHANES] Frequency of Communication with Friends and Family: Patient declined Frequency of Social Gatherings with Friends and Family: Patient declined Attends Restorationism Services: More than 4 times per year [...] mood, normal affect CERUMEN REMOVAL PROCEDURE NOTE (27168) PROCEDURE PERFORMED BY: Monica Porter MD, MD [...] Negative. Psychiatric/Behavioral: Negative. documented in this encounter [facility] 01-05-2024 History of Presen t illness Narrative Chief Complaint Patient presents with Right Shoulder - Follow-up TS-ever DOS: 08/10/23 (5 months) Xrays today History [...] views. INDICATION: Signs/Symptoms:pain. COMPARISON: 09/24/2023. ACCESSION NUMBER(S): [id number] ORDERING CLINICIAN: INDRIA LEVY FINDINGS: Patient is status post right reverse total shoulder arthroplasty for proximal humeral fracture. Hardware is intact without perihardware fractures or lucencies. No malalignment. 1. Right reverse total shoulder arthroplasty without hardware complication. Signed by: Lacy Montoya 11/13/2023 9:51 AM Dictation workstation: [id number] Assessment Patient status post right reverse total [...] strategies with both the patient and physician learning and development assistant / nurse practitioner. I reviewed the PA/BUTCHER ASSISTANT's note and agree with the documented findings and plan of care. Indira Levy III, MD documented in this encounter [facility] Work Phone: 01-03-2024 History of Presen t [...] with result. She does have appointment with forest manager scheduled for next week. Follow-up in 3 months for clinical check Maryam Levy MD documented in this encounter [facility] Work Phone: 12-13-2023 History of Presen t illness Narrative POPULATION HEALTH NAVIGATION OUTREACH Action/FYI msg to schedule wellness, hcc gap closure Reason for Outreach Care Gap/HCC or Scheduling Wellness Visits Care Gaps due: Medicare Annual Wellness Visit Patient Contacted: Unable or unnecessary to reach patient: Unable to leave message [employer] message sent HCC related Navigation Signature: Guerda Guerrero MA December 13, 2023 2:24 PM documented in this encounter [facility] 11-12-2023 History of Presen t illness Narrative [...] views. INDICATION: Signs/Symptoms:pain. COMPARISON: 09/24/2023. ACCESSION NUMBER(S): [id number] ORDERING CLINICIAN: INDIRA LEVY FINDINGS: Patient is status post right reverse total shoulder arthroplasty for proximal humeral fracture. Hardware is intact without perihardware fractures or lucencies. No malalignment. 1. Right reverse total shoulder arthroplasty without hardware complication. Signed by: Lacy Montoya 11/13/2023 9:51 AM Dictation workstation: [id number] Assessment Patient status post right reverse total [...] strategies with both the patient and physician learning and development assistant / nurse practitioner. I reviewed the PA/BUTCHER ASSISTANT's note and agree with the documented findings and plan of care. Indira Levy III, MD documented in this encounter [facility] Work Phone: 11-10-2023 Miscellaneous Notes Pat from the [facility] calling and [facility] pt was referred to them. Pat states she is in need of patient's demographics sheet and Medicare card. The one they received is black and unable to read it. Demographics sheet and copy of [employer] Medicare card faxed to [phone]. documented in this encounter [facility] 11-10-2023 Telephone encounter Note Pat from the [facility] and [facility] pt was referred to them. Pat states she is in need of patient's demographics sheet and Medicare card. The one they received is black and unable to read it. Demographics sheet and copy of [employer] Medicare card faxed to [phone]. [facility] 10-27-2023 Telephone encounter Note Referral faxed Nicci Escalera MA [facility] 10-27-2023 Miscellaneous Notes Referral faxed Nicci Escalera MA documented in this encounter [facility] 10-19-2023 History of Presen t illness Narrative [...] of motion exercises of the fingers ([employer]). The [employer] Manager allows for flexion of the IP joints [...] Maryam Levy MD documented in this encounter [facility] Work Phone: 10-13-2023 History of Presen t illness Narrative POPULATION HEALTH NAVIGATION OUTREACH Action/FYI msg to schedule wellness, hcc gap closure Reason for Outreach Care Gap/HCC or Scheduling Wellness Visits Care Gaps due: Medicare Annual Wellness Visit Patient Contacted: Unable or unnecessary to reach patient: Left message [employer] message sent HCC related Navigation Signature: Guerda Guerrero MA October 13, 2023 11:23 AM documented in this encounter [facility] 10-06-2023 Hospital Discharg e instructions Maryam Lugo [...] hours or on weekends as the physician qa automation architect does not have access to your medical [...] to 5PM Wednesday through Wednesday, please call: [phone] 2) After hour emergencies can be directed to the physician qa automation architect at [phone] Frequently Asked Questions Patients often have similar [...] to penetrate the thick dressing) or a hair or beauty salon manager set to the cool setting to blow cool air down the splint/cast to help alleviate itching. documented in this encounter [facility] Work Phone: 10-06-2023 Telephone encounter Note Note faxed Nicci Escalera MA [facility] 10-06-2023 Miscellaneous Notes Note faxed Nicci Escalera MA 09/27 note addended. Chyna Grimm APRN.CRESENCIO Called and spoke with nurse at [facility] office and office note from 09/27 needs to state pt is cleared for surgery. No pre-op forms. Nicci Escalera MA Left detailed message on secure [employer] to fax pre-op form to [phone]. Nicci Escalera MA Attempted to contact office number but other line busy. Will need to try again. Nicci Escalera MA Please obtain surgery clearance forms from patient's surgery office. Chyna Grimm APRN.CNP documented in this encounter [facility] 10-05-2023 Telephone encounter Note 09/27 note addended. Chyna Grimm APRN.RACKMAN [facility] 10-05-2023 Telephone encounter Note Called and spoke with nurse at [facility] office and office note from 09/27 needs to state pt is cleared for surgery. No pre-op forms. Nicci Escalera MA [facility] 10-04-2023 Note Formatting of this n ote might be different from the original. Reviewed medical history and current medications. NPO after midnight. Aware to take Carvedilol morning of procedure with a sip of water. Patient verbalized understanding. [facility] Work Phone: 10-04-2023 Miscellaneous Notes Reviewed medical history and current medications. NPO after midnight. Aware to take Carvedilol morning of procedure with a sip of water. Patient verbalized understanding. documented in this encounter [facility] Work Phone: 09-30-2023 Telephone encounter Note Left detailed message on [employer] to fax pre-op form to [phone]. Nicci Escalera MA [facility] 09-28-2023 Telephone encounter Note Attempted to contact office number but other line busy. Will need to try again. Nicci Escalera MA [facility] 09-28-2023 Telephone encounter Note Pt informed, verbalized understanding. Nicci Escalera MA [facility] 09-28-2023 Miscellaneous Notes Pt informed, verbalized understanding. Nicci Escalera MA I would like her to increase [...] like a 90 day supply sent to [facility]. documented in this encounter [facility] 09-28-2023 Telephone encounter Note I would like [...] once daily. Authorizing Provider: CHYNA GRIMM APRN.CNP [facility] 09-28-2023 Telephone encounter Note Patient calls stating that she was to confirm that she is taking furosemide 20 mg daily. She did ask that if she is to continue with this daily she would like a 90 day supply sent to [facility]. [facility] 09-28-2023 Telephone encounter Note Please obtain surgery clearance forms from patient's surgery office. Chyna Grimm APRN.CNP [facility] 09-28-2023 Instructions Chyna Grimm APRN.CNP - 09/28/2023 7:28 AM EDT Call the office today and let us know what dose of the furosemide you're taking. Schedule with rheumatology. documented in this encounter [facility] 09-28-2023 History of Presen t illness Narrative [...] her right shoulder. Surgery is scheduled at [facility] on 08/09. 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 Extremities: 3+ pitting BLE [...] - CONSULT TO RHEUM/IMMUN DISEASE Chyna Grimm APRN.RACKMAN documented in this encounter [facility] 09-24-2023 History of Presen t illness Narrative [...] dedicated physical therapy. documented in this encounter [facility] Work Phone: 09-21-2023 History of Presen t [...] Maryam Levy MD documented in this encounter [facility] Work Phone: 09-03-2023 Telephone encounter Note Enalapril 2.5 mg po daily, # 90 with 1 refills until pt can be seen in next follow up appt. Msg sent to scheduling to call pt for appointment. [facility] 09-03-2023 Miscellaneous Notes Enalapril 2.5 mg po daily, # 90 with 1 refills until pt can be seen in next follow up appt. Msg sent to scheduling to call pt for appointment. documented in this encounter [facility] 09-03-2023 History of Presen t illness [...] Maryam Lugo MD documented in this encounter [facility] Work Phone: 08-27-2023 History of Presen t [...] pm INDICATION: Signs/Symptoms:pain. COMPARISON: None. ACCESSION NUMBER(S): [id number] ORDERING CLINICIAN: INDIRA LEVY FINDINGS: Three views right shoulder: Status post right reverse shoulder arthroplasty for fracture. In comparison to immediate postoperative film appears to be increased inferior inclination. No Janice implant lucency. Appropriate position of greater tuberosity status post repair. Status post reverse right shoulder arthroplasty for fracture MACRO: None Signed by: Indira Levy III 08/27/2023 4:45 PM Dictation workstation: [id number] XR shoulder right 2+ views Result Date: 08/10/2023 Interpreted By: Farnaz Vargas, STUDY: XR SHOULDER RIGHT 2+ VIEWS; ; 08/10/2023 3:23 pm INDICATION: Signs/Symptoms:post op in pacu grashey and y views. COMPARISON: 07/02/2023 ACCESSION NUMBER(S): [id number] ORDERING CLINICIAN: INDIRA LEVY FINDINGS: Reverse right shoulder arthroplasty. Residual comminuted bone fragments along the lateral aspect of the humeral component of the prosthesis. Gas and swelling in the joint and soft tissues compatible with postoperative change. Postoperative changes of reverse right shoulder arthroplasty. MACRO: None Signed by: Farnaz Vargas 08/10/2023 4:36 PM Dictation workstation: [id number] Assessment Patient status post right reverse total [...] x-rays and activities. documented in this encounter [facility] Work Phone: 08-11-2023 Nurse Note Discharge instructions reviewed with patient. Patient verbalized understanding with no further questions. [facility] Work Phone: 08-11-2023 Nurse Note Discharge instructions reviewed with patient. Patient verbalized understanding with no further questions. documented in this encounter [facility] Work Phone: 08-11-2023 History of Presen t [...] Hip/knee/ankle WFL MMT 4/5 grossly) Outcome Measures: [facility] Basic Mobility Turning from your back to [...] 08/18/23 Education Documentation Precautions, taught by Whitney Ruffin, PT at 08/11/2023 12:40 PM. Learner: Patient [...] Support Systems Family members;Friends/neighbors;Child anais Assistance Needed PRINCIPAL ARCHAEOLOGIST pt states ind ADLS and IADLS no [...] place to sleep or slept in a detention (including now)? N Transportation Needs In the [...] biceps tenodesis 08/10/[address] Indira Levy. PRINCIPAL ARCHAEOLOGIST pt states ind ADLS and IADLS no AD, drives, fall on 06/07/23 - had crack near right shoulder, pt states she recently stumbled again and the reason for shoulder surgery. PT/OT eval [facility] scores are currently pending. Pt states DC preference is home, and declines home going needs at this time, states her daughter will stay with her to assist as needed. CT team will monitor case progression for potential DC needs. documented in this encounter [facility] Work Phone: 08-11-2023 Consult note Formatting of [...] Joint pain, and Wears glasses. Arrhythmia, CAD, [place] in 2015 Surgical History She has a [...] note, this documentation is completed using the [employer] system (voice recognition software). There may be spelling and/or grammatical errors that were not corrected prior to final submission. [place] [place] [facility] Work Phone: 08-11-2023 Consult note Formatting of [...] Joint pain, and Wears glasses. Arrhythmia, CAD, [place] in 2015 Surgical History She has a [...] note, this documentation is completed using the [employer] Dictation system (voice recognition software). There may be spelling and/or grammatical errors that were not corrected prior to final submission. [facility] [place] documented in this encounter [facility] Work Phone: 08-11-2023 Hospital course Narrative Images from the original note were not included. Discharge summary This patient Felisha Joaquin was admitted to the hospital on 08/10/2023 after undergoing Procedure(s) (LRB): TOTAL RIGHT ARTHROPLASTY SHOULDER REVERSE POSSIBLE BICEPS TENODESIS, LE TORNIER, REVIVE STEMS AVAILABLE , BRYNN PEREZ, beach chair, 23 HR. OBS/BEDDED OP (Right) [...] in 2 weeks documented in this encounter [facility] Work Phone: 08-11-2023 Hospital Discharg e instructions [...] remove dressing and start using instructions above [place] will be removed on post-operative day 14 [...] ice pack to prevent frostbite Contact the [place] [facility] office if Increased redness, swelling, [...] in 2 weeks documented in this encounter [facility] Work Phone: 08-10-2023 Miscellaneous Notes TOTAL RIGHT ARTHROPLASTY SHOULDER REVERSE POSSIBLE BICEPS TENODESIS, LE TORNIER, REVIVE STEMS AVAILABLE , BRYNN PEREZ, beach chair, 23 HR. OBS/BEDDED OP (R) Operative Note Date: 08/10/2023 OR Location: [facility] Name: Felisha Joaquin, : 1945, Age: 78 y.o., , Sex: female Diagnosis Pre-op Diagnosis * Unspecified fracture of upper end of unspecified humerus, initial encounter for closed fracture [S42.A] Post-op Diagnosis * Unspecified fracture of upper end of unspecified humerus, initial encounter for closed fracture [S4] Procedures CA TENODESIS LONG TENDON BICEPS [[id number]] CA ARTHROPLASTY GLENOHUMERAL JOINT TOTAL SHOULDER [[id number]] Surgeons * Indira Levy - Primary Resident/Fellow/Other Med Peds: Surgeons and Role: * Saroj Simpson PA-C - Assisting * Vinh Guadarrama PA-C - Assisting Procedure Summary Anesthesia: General ASA: III Anesthesia Staff: Anesthesiologist: Kvng Juarez MD WHEEL BLOCKER: Leydi Ricks APRN-PAULINO Estimated Blood Loss: 100mL Intra-op Medications: Administrations [...] 1311.39 mL Specimen: No specimens collected Staff: [employer] Specialist: Siobhan Cat RN Scrub Person: Alysa Pacheco Drains and/or Catheters: * None in log * Tourniquet Times: Implants: Implants Type Name Action Serial No. Joint BASEPLATE, LATERALIZED, +3MM, 25MM - [id number] Implanted [id number] Joint INSERT, REVERSED, 36MM X 9 X 12.5 - [id number] Implanted [id number] Joint TRAY, ASCEND FLEX REVERSED TH 0EC 0 - [id number] Implanted [id number] 98MM 3B LAMONT AEQUALIS ASCEND FLEX LONG [...] to normal structures that can lead to intermediate manager problems of pain or dysfunction, wound healing [...] using a #2 FiberWire suture in a pvdakw-qf-nqnsg fashion. I then released the fascia along [...] control was gained by placing in a ivxuuj-wa-kypfv fashion #5 Ethibond sutures around this. These [...] no complications during the surgery. The physician learning and development assistant was present for the entire case. Given the nature of the procedure and disease process a skilled surgical scrub technician was necessary for the case. The learning and development assistant was necessary for retraction and helped directly facilitate completion of the surgery. A certified veterinary technician was at the back table managing instruments [...] stable Indira Levy documented in this encounter [facility] Work Phone: 08-10-2023 Note Formatting of this n ote is different from the original. TOTAL RIGHT ARTHROPLASTY SHOULDER REVERSE POSSIBLE BICEPS TENODESIS, LE TORNIER, REVIVE STEMS AVAILABLE , BRYNN PEREZ, beach chair, 23 HR. OBS/BEDDED OP (R) Operative Note Date: 08/10/2023 OR Location: [facility] Name: Felisha Joaquin, : 1945, Age: 78 y.o., , Sex: female Diagnosis Pre-op Diagnosis * Unspecified fracture of upper end of unspecified humerus, initial encounter for closed fracture [S42.209A] Post-op Diagnosis * Unspecified fracture of upper end of unspecified humerus, initial encounter for closed fracture [S42.209A] Procedures CA TENODESIS LONG TENDON BICEPS [[id number]] CA ARTHROPLASTY GLENOHUMERAL JOINT TOTAL SHOULDER [[id number]] Surgeons * Indira Levy - Primary Resident/Fellow/Other Med Peds: Surgeons and Role: * Saroj Simpson PA-C - Assisting * Vinh Guadarrama PA-C - Assisting Procedure Summary Anesthesia: General ASA: III Anesthesia Staff: Anesthesiologist: Kvng Juarez MD WHEEL BLOCKER: Leydi Ricks APRN-PAULINO Estimated Blood Loss: 100mL Intra-op Medications: Administrations [...] 1311.39 mL Specimen: No specimens collected Staff: Cyber Transport [employer] Specialist: Siobhan Cat RN Scrub Person: Alysa Pacheco Drains and/or Catheters: * None in log * Tourniquet Times: Implants: Implants Type Name Action Serial No. Joint BASEPLATE, LATERALIZED, +3MM, 25MM - [id number] Implanted [id number] Joint INSERT, REVERSED, 36MM X 9 X 12.5 - [id number] Implanted [id number] Joint TRAY, ASCEND FLEX REVERSED TH 0EC 0 - [id number] Implanted [id number] 98MM 3B LAMONT AEQUALIS ASCEND FLEX LONG [...] to normal structures that can lead to intermediate manager problems of pain or dysfunction, wound healing [...] using a #2 FiberWire suture in a obfjtt-hu-adgij fashion. I then released the fascia along [...] control was gained by placing in a wcjhfg-ep-swbjn fashion #5 Ethibond sutures around this. These [...] no complications during the surgery. The physician learning and development assistant was present for the entire case. Given the nature of the procedure and disease process a skilled surgical scrub technician was necessary for the case. The learning and development assistant was necessary for retraction and helped directly facilitate completion of the surgery. A certified veterinary technician was at the back table managing instruments [...] - hemodynamically stable. Condition: stable Indira Levy T [facility] Work Phone: 08-10-2023 Attending History and physical note H&P reviewed. The patient was examined and there are no changes to the H&P. Source Note - Chyna Grimm APRN.CRESENCIO - 07/13/2023 1:20 PM EDT Chief Complaint [...] her right shoulder. Surgery is scheduled at [facility] on 08/09. Has never had [...] 40 MG TABLET,DELAYED RELEASE Chyna Grimm APRN.CNP [facility] Work Phone: 08-10-2023 History and physical note [...] her right shoulder. Surgery is scheduled at [facility] on 08/09. Has never had [...] PAST SURGICAL HISTORY Procedure Laterality Date COLONOSCOPY 2005 small polyp COLONOSCOPY FLX DX W/COLLJ SPEC [...] PANTOPRAZOLE 40 MG TABLET,DELAYED RELEASE Chyna Grimm APRN.CRESENCIO documented in this encounter [facility] Work Phone: 08-09-2023 History of Presen t [...] avoid after surgery. documented in this encounter [facility] Work Phone: 08-09-2023 Miscellaneous Notes Faxed Nicci Escalera MA Completed and placed in the outbox in our office. Chyna Grimm APRN.CRESENCIO [facility]- reports the clearance form they received back, had a date, but no signature. Reports she faxed it back to provider on Wednesday to complete, and return fax to her at fax # [phone]. Reports she needs this today, as patient's [...] and faxed back to her: phone # [phone] documented in this encounter [facility] 07-16-2023 Miscellaneous Notes Noted, thank you. Chyna Grimm APRN.CRESENCIO Patient has been identified by name and date of : Yes, Provider Dr. Mendiola Date 07/16/23 Time 11:29 Type of form: pre op form Form received via: Fax When form is completed, fax form to fax number provided. Form has been forwarded to: Provider's desk. Provider name: Chyna Stephenson LPN documented in this encounter [facility] 07-13-2023 History of Presen t illness Narrative [...] her right shoulder. Surgery is scheduled at [facility] on 08/09. Has never had [...] PANTOPRAZOLE 40 MG TABLET,DELAYED RELEASE Chyna Grimm APRN.RACKMAN documented in this encounter [facility] 07-12-2023 History of Presen t illness Narrative [...] am INDICATION: Signs/Symptoms:PAIN. COMPARISON: 06/18/2023. ACCESSION NUMBER(S): [id number] ORDERING CLINICIAN: SAM GRACIA FINDINGS: Right shoulder, three views Redemonstration of a comminuted fracture through the proximal humerus with moderate displacement and angulation. There is increased callus formation and sclerosis. There is no dislocation. Subacute healing proximal humeral fracture deformity without change in alignment. MACRO: None Signed by: Aldair Fatima 07/03/2023 9:13 AM Dictation workstation: [id number] XR shoulder right 2+ views Result Date: 06/19/2023 Interpreted By: Jose Russell, STUDY: XR SHOULDER RIGHT 2+ VIEWS; XR HUMERUS RIGHT INDICATION: Signs/Symptoms:S/P FRACTURE. COMPARISON: June 07, 2023 ACCESSION NUMBER(S): [id number]; [id number] ORDERING CLINICIAN: SAM GRACIA FINDINGS: Surgical neck [...] Jose Russell 06/19/2023 9:36 AM Dictation workstation: [id number] XR humerus right Result Date: 06/19/2023 Interpreted By: Jose Russell, STUDY: XR SHOULDER RIGHT 2+ VIEWS; XR HUMERUS RIGHT INDICATION: Signs/Symptoms:S/P FRACTURE. COMPARISON: June 07, 2023 ACCESSION NUMBER(S): [id number]; [id number] ORDERING CLINICIAN: SAM GRACIA FINDINGS: Surgical neck [...] Jose Russell 06/19/2023 9:36 AM Dictation workstation: [id number] Procedure: Procedures Assessment: 78-year-old female with displaced [...] to normal structures that can lead to [facility] problems of pain or dysfunction, wound healing [...] questions were answered. documented in this encounter [facility] Work Phone: 07-02-2023 Evaluation + Plan note [...] postoperatively I am happy to do so. [facility] Work Phone: 07-02-2023 Miscellaneous Notes Associated Problem(s): [...] to do so. documented in this encounter [facility] Work Phone: 07-02-2023 History of Presen t [...] FRACTURE. 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 This is further displaced. ULTRASOUND none Procedures Orders Placed This Encounter XR shoulder right 2+ views Point of Care Ultrasound documented in this encounter [facility] Work Phone: 06-18-2023 Evaluation + Plan note [...] 2 weeks for reevaluation with new x-rays. [facility] Work Phone: 06-18-2023 Miscellaneous Notes Associated Problem(s): [...] with new x-rays. documented in this encounter [facility] Work Phone: 06-18-2023 History of Presen t [...] INDICATION: Signs/Symptoms:S/P FX. COMPARISON: 06/07/2023 ACCESSION NUMBER(S): [id number] ORDERING CLINICIAN: SAM GRACIA FINDINGS: Redemonstration offset fracture of the proximal humerus which appears to involve both the humeral neck and greater tuberosity. Impression: Similar appearing offset fracture of the proximal humerus. MACRO: None Signed by: Jose Armando Pearce 06/11/2023 10:25 PM Dictation workstation: [id number] ULTRASOUND none Procedures Orders Placed This Encounter Point of Care Ultrasound XR shoulder right 2+ views XR humerus right documented in this encounter [facility] Work Phone: 06-10-2023 Evaluation + Plan note [...] a week for reevaluation with new x-rays. [facility] Work Phone: 06-10-2023 Miscellaneous Notes Associated Problem(s): [...] with new x-rays. documented in this encounter [facility] Work Phone: 06-10-2023 History of Presen t [...] INDICATION: Signs/Symptoms:fall, pain. COMPARISON: None. ACCESSION NUMBER(S): [id number] ORDERING CLINICIAN: RICK NÚÑEZ FINDINGS: Left knee arthroplasty changes. Demineralization. No evidence of acute fracture. No malalignment. Impression: No evidence of acute fracture of the left knee. MACRO: None Signed by: Kai Khanna 06/07/2023 8:19 PM Dictation workstation: [id number] XR humerus right, XR shoulder right 2+ views Narrative: Interpreted By: Kai Khanna, STUDY: XR HUMERUS RIGHT; XR SHOULDER RIGHT 2+ VIEWS; ; 06/07/2023 7:55 pm INDICATION: Signs/Symptoms:fall, pain. COMPARISON: None. ACCESSION NUMBER(S): [id number]; [id number] ORDERING CLINICIAN: RICK NÚÑEZ FINDINGS: Right humerus [...] Kai Khanna 06/07/2023 8:18 PM Dictation workstation: [id number] CT head wo IV contrast Narrative: Interpreted By: Kai Khanna, STUDY: CT HEAD WO IV CONTRAST; 06/07/2023 8:05 pm INDICATION: Signs/Symptoms:fall. COMPARISON: None. ACCESSION NUMBER(S): [id number] ORDERING CLINICIAN: RICK NÚÑEZ TECHNIQUE: Noncontrast axial [...] Kai Khanna 06/07/2023 8:16 PM Dictation workstation: [id number] ULTRASOUND none Procedures Orders Placed This Encounter XR humerus right Point of Care Ultrasound documented in this encounter [facility] Work Phone: 06-08-2023 Miscellaneous Notes We haven't seen her recently in office, needs to see Ortho Trace Mendiola DO Pt's daughter calls to report that pt fell last night and broke her arm. Pt was taken to [facility] ER. Daughter reports they immobilized arm in a sling and advised pt to see an Ortho surgeon. Daughter transferred to Ortho casting room operator. Heidy Rangel LPN documented in this encounter [facility] 03-30-2023 Note IMPRESSION: INCOMPLE TE: NEEDS ADDITIONAL IMAGING EVALUATION The oval asymmetry in the right breast is indeterminate. Additional views with possible ultrasound are recommended. Sacha muller/araceli:03/30/2023 10:53:50 Small Kick Press Operator(s): Sharon Fitzgerald, RT(R)(M), [facility] letter sent: Additional Imaging Needed Mammogram BI-RADS: 0 Incomplete: needs additional imaging evaluation If this report indicates you need additional imaging, and it has NOT yet been performed, please call , to schedule. We sincerely thank you for choosing the [facility] for your breast imaging needs. Multiple national specialty organizations have released breast cancer screening guidelines for women at average risk for developing breast cancer - guidelines that are based on both evidence and opinion, yet differ on when to start and how often to screen for breast cancer. With representation from Breast Imaging, Internal Medicine, Women's Health, Family Medicine, and Medical/Surgical Oncology, the [facility] has carefully reviewed the data and reached [...] their providers when to stop screening mammograms. Steel Manager: Araceli Transcribe Date/Time: Mar 29 2023 9:54A Dictated by: SACHA ACEVEDO MD This examination was interpreted and the report reviewed and electronically signed by: SACHA ACEVEDO MD on Mar 30 2023 10:53AM [facility] 03-29-2023 History of Presen [...] 2023 10:06 AM documented in this encounter [facility] 03-22-2023 Telephone encounter Note Mammogram ordered. Please assist in scheduling. Thank you, Kaylen Best APRN.RACKMAN [facility] 03-22-2023 Miscellaneous Notes Mammogram ordered. Please assist in scheduling. Thank you, Kaylen Best APRN.RACKMAN Images from the original note were not included. Felisha Joaquin My Chart Rx Pool I received a notice that it was time to schedule mammogram. I called the number on the letter. They said I needed prescription from my primary care doctor to be able to schedule documented in this encounter [facility] 03-22-2023 Miscellaneous Notes See telephone note documented in this encounter [facility] 03-22-2023 Telephone encounter Note Images from the original note were not included. Felisha Joaquin [facility] My Chart Rx Pool I received a notice that it was time to schedule mammogram. I called the number on the letter. They said I needed prescription from my primary care doctor to be able to schedule [facility] 03-16-2023 History of Presen t illness Narrative [facility] [address] [facility] [place] [address] [facility] [address] Dept: [phone] Monica Porter MD Felisha Joaquin 77 y.o. female Patient presents with a [...] Hyperlipidemia Hypertension Non-ST elevation myocardial infarction (NSTEMI) ([facility]) 03/2014 Osteoarthritis Current Outpatient Medications: ascorbic acid, [...] mood, normal affect CERUMEN REMOVAL PROCEDURE NOTE (50462) PROCEDURE PERFORMED BY: Monica Porter MD PROCEDURE [...] Negative. Psychiatric/Behavioral: Negative. documented in this encounter [facility] 12-01-2022 Instructions Claudia Wagner RN - 12/01/2022 11:44 AM EDT How to contact your Care Team: Provider: Dr.SHARON KIRAN Nurse: Nkechi NORIEGA Fax: In case of an emergency please call 911. REFILLS: When in need for refills please call your care team or the office at [phone]. Please include medication name, pharmacy name, and specify 30-day or 90-day supply. Please check with your pharmacy within 24 hours of request for your refill. You must follow up as directed to continue current refills. Thank you! documented in this encounter [facility] 12-01-2022 History of Presen t illness Narrative General Cardiology Returning Patient Clinic Visit [facility] 12/01/2022 Estella Soto, RACKMAN [address] [phone] Patient: Felisha Joaquin Date of : 1945 (77 y.o.) Operations Recruiter: Dr. Kiran PCP: Trace Mendiola DO Chief [...] 1 year (around 12/02/2023). Estella Soto, MSN, CAT OPERATOR, COLLAR SEWER-C, COVERED BUCKLE ASSEMBLER, ECG- General Cardiology [facility] History [...] ventricular ectopy. EKG was sent to reading development associate for further interpretation. Past Medical History: Diagnosis Date Coronary artery disease GERD (gastroesophageal reflux disease) Hyperlipidemia Hypertension Non-ST elevation myocardial infarction (NSTEMI) ([facility]) 03/2014 Osteoarthritis Past Surgical History: Procedure Laterality [...] BILITOT 0.5 05/23/2019 The ASCVD Risk score (Winterthur DK, et al., 2019) failed to calculate for the following reasons: Cannot find a previous HDL lab Cannot find a previous total cholesterol lab f documented in this encounter [facility] 09-03-2022 Telephone encounter Note Patient was last seen by Elsie DUPONT 11/24/21 with a recall due in 11/2022. Scheduling notified. Refill appropriate [facility] 09-03-2022 Miscellaneous Notes Patient was last seen by Elsie DUPONT 11/24/21 with a recall due in 11/2022. Scheduling notified. Refill appropriate documented in this encounter [facility] 09-01-2022 Miscellaneous Notes Patients pantoprazole is filled by Irish Giles CNP in [place]. Her refill was denied at that office due to needing an appointment. Patient sent explaining this information and notified to contact [facility] to further discuss her refill request. DECLAN Cowart documented in this encounter [facility] 08-24-2022 Miscellaneous Notes Old message. Patient had [...] [facility] Consult on 08/12/2022 in [place]. Is this appropriate or should she be scheduled for the laser that day. Please advise. Jordyn Patel RN August 10, 2022 12:10 PM documented in this encounter [facility] 08-21-2022 History of Presen t illness Narrative [...] 2022 2:47 PM documented in this encounter [facility] 07-08-2022 History of Presen t illness Narrative [...] Jimmie Kevin MD documented in this encounter [facility] 07-08-2022 Instructions Jimmie Kevin MD - 07/08/2022 2:49 PM EDT Images from the original note were not included. documented in this encounter [facility] 03-12-2022 History of Presen t illness Narrative [...] PERIPHERAL IV DATA: Not applicable SIGNED BY: Tyra RichterBiottery Gerhard March 12, 2022 1:49 PM documented in this encounter [facility] 02-26-2022 Miscellaneous Notes Pt informed, verbalized understanding Nicci Carmichael Ma Please inform patient that her labs are all normal except for low vitamin D levels. Would recommend vitamin D3 2,000-5,000 international unit(s) a day with a meal. Trace Mendiola DO documented in this encounter [facility] 02-17-2022 History of Presen t illness Narrative Felisha Joaquin is a 76 year old female here for a Medicare Subsequent Annual Wellness Visit Health Risk Assessment In general, health is: Fair Concerns with tiredness, difficulties with sexual function, balance, teeth/dentures: Not at all [place] anxious, stressed, angry, irritable, lonely, isolated, or [...] Trace Mendiola DO documented in this encounter [facility] 11-24-2021 History of Presen t illness Narrative General Cardiology Clinic Follow-up Heart & Vascular [facility] 11/24/2021 Peyton Kenyon, RACKMAN [address] [facility] [phone] Patient: Felisha Joaquin Date of : [...] 14 days allowed.) documented in this encounter [facility] 11-24-2021 Instructions Cheyanne Engle RN - 11/24/2021 8:03 AM EDT PROVIDER: DR CANDICE KIRAN NURSE: NKECHI MCKEON RN PHONE: [phone] FAX: [phone] REFILLS: When in need for refills please call your care team or the office at [phone]. Please include medication name, pharmacy name, and specify 30-day or 90-day supply. Please check with your pharmacy within 24 hours of request for your refill. You must follow up as directed to continue current refills. Thank you! documented in this encounter [facility] 09-29-2021 Telephone encounter Note lvm on primary # advising patient to call our office when he needs medication refills so we can get him scheduled for an overdue ov [facility] 09-29-2021 Miscellaneous Notes lvm on primary # advising patient to call our office when he needs medication refills so we can get him scheduled for an overdue ov Msg sent to scheduling for overdue ov documented in this encounter [facility] 09-25-2021 Telephone encounter Note Msg sent to scheduling for overdue ov [facility] 05-16-2019 Telephone encounter Note Called patient regarding medication refill request last OV was on 09/07/18 with Shawna recall was 03/10/19 looked at appts there are none until July 2019 patient was happy to see Shawna placed her on Shawna Schedule for tomorrow she will fill refills then thank you [facility] 05-16-2019 Miscellaneous Notes Called patient regarding medication refill request last OV was on 09/07/18 with Shawna recall was 03/10/19 looked at appts there are none until July 2019 patient was happy to see Shawna placed her on Shawna Schedule for tomorrow she will fill refills then thank you documented in this encounter [facility] 02-07-2016 History of Past i llness Narrative Problem Noted Date Resolved Date Dry eyes, bilateral 02/07/2016 04/07/2016 S/P total knee arthroplasty 06/16/201310/25 documented as of this encounter (statuses as of 02/17/2022) [facility] History of Past illness Narrative* Problem Noted Date Resolved Date Dry eyes, bilateral 02/07/2016 04/07/2016 S/P total knee arthroplasty 06/16/201310/25 documented as of this encounter (statuses as of 02/26/2022) [facility] History of Past illness Narrative* Problem Noted Date Resolved Date Dry eyes, bilateral 02/07/2016 04/07/2016 S/P total knee arthroplasty 06/16/201310/25 documented as of this encounter (statuses as of 03/10/2022) [facility] History of Past illness Narrative* Problem Noted Date Resolved Date Dry eyes, bilateral 02/07/2016 04/07/2016 S/P total knee arthroplasty 06/16/201310/25 documented as of this encounter (statuses as of 07/08/2022) [facility] History of Past illness Narrative* Problem Noted Date Resolved Date Dry eyes, bilateral 02/07/2016 04/07/2016 S/P total knee arthroplasty 06/16/201310/25 documented as of this encounter (statuses as of 08/21/2022) [facility] History of Past illness Narrative* Problem Noted Date Resolved Date Dry eyes, bilateral 02/07/2016 04/07/2016 S/P total knee arthroplasty 06/16/201310/25 documented as of this encounter (statuses as of 08/24/2022) [facility] History of Past illness Narrative* Problem Noted Date Resolved Date Dry eyes, bilateral 02/07/2016 04/07/2016 S/P total knee arthroplasty 06/16/201310/25 documented as of this encounter (statuses as of 09/01/2022) [facility] History of Past illness Narrative* Problem Noted Date Diagnosed Date Resolved Date Dry eyes, bilateral 02/07/2016 04/07/20 16 S/P total knee arthroplasty 06/16/2013 11/13/2014 documented as of this encounter (statuses as of 03/01/2023) [facility] History of Past illness Narrative* Problem Noted Date Diagnosed Date Resolved Date Dry eyes, bilateral 02/07/2016 04/07/20 16 S/P total knee arthroplasty 06/16/2013 11/13/2014 documented as of this encounter (statuses as of 03/22/2023) [facility] History of Past illness Narrative* Problem Noted Date Diagnosed Date Resolved Date Dry eyes, bilateral 02/07/2016 04/07/20 16 S/P total knee arthroplasty 06/16/2013 11/13/2014 documented as of this encounter (statuses as of 03/30/2023) [facility] History of Past illness Narrative* Problem Noted Date Diagnosed Date Resolved Date Dry eyes, bilateral 02/07/2016 04/07/20 16 S/P total knee arthroplasty 06/16/2013 11/13/2014 documented as of this encounter (statuses as of 06/08/2023) [facility] History of Past illness Narrative* Problem Noted Date Diagnosed Date Resolved Date Dry eyes, bilateral 02/07/2016 04/07/20 16 S/P total knee arthroplasty 06/16/2013 11/13/2014 documented as of this encounter (statuses as of 07/14/2023) [facility] History of Past illness Narrative* Problem Noted Date Diagnosed Date Resolved Date Dry eyes, bilateral 02/07/2016 04/07/20 16 S/P total knee arthroplasty 06/16/2013 11/13/2014 documented as of this encounter (statuses as of 07/16/2023) [facility] History of Past illness Narrative* Problem Noted Date Diagnosed Date Resolved Date Dry eyes, bilateral 02/07/2016 04/07/20 16 S/P total knee arthroplasty 06/16/2013 11/13/2014 documented as of this encounter (statuses as of 08/10/2023) [facility]* Diagnosis Essential hypertension with goal blood pressure less than 130/80 Bilateral lower extremity edema On potassium wasting diuretic therapy [facility] Diagnosis Mixed hyperlipidemia Essential hypertension with goal blood pressure less than 130/80 [facility] Diagnosis Coronary artery dise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- Primary LV dysfunction with recoverability Left heart failure documented [facility] this encounter [facility]* Diagnosis Medicare annual wellness visit, subsequent- Primary Routine general medical examination at a health care facility Essential hypertension Unspecified essential hypertension Gastroesophageal reflux disease without esophagitis Esophageal reflux Primary osteoarthritis of both knees Primary localized osteoarthrosis, lower leg Dyslipidemia Other and unspecified hyperlipidemia Fatigue, unspecified type Vitamin D deficiency Unspecified vitamin D deficiency documented in this encounter [facility]* Diagnosis Visit for screening mammogram- Primary Other screening mammogram [facility]* Diagnosis Essential hypertension with goal blood pressure less than 130/80 Mixed hyperlipidemia [facility]* Diagnosis Essential hypertension with goal blood pressure less than 130/80 Mixed hyperlipidemia [facility] Diagnosis Vitreous floaters of both eyes- Primary Bilateral posterior capsular opacification After-cataract, unspecified Pseudophakia Lens replaced by other means Hemangioma of eyelid Hemangioma of skin and subcutaneous tissue Dry eye syndrome of both eyes documented in this encounter [facility]* Diagnosis Bilateral posterior capsular opacification- Primary After-cataract, unspecified Pseudophakia Lens replaced by other means Vitreous floaters of both eyes Hemangioma of eyelid Hemangioma of skin and subcutaneous tissue Dry eye syndrome of both eyes [facility]* Diagnosis Essential hypertension with goal blood pressure less than 130/80 [facility] Diagnosis Coronary artery dise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- Primary LV dysfunction with recoverability Left heart failure Primary hypertension Unspecified essential hypertension Mixed hyperlipidemia [facility]* Diagnosis Bilateral impacted cerumen- Primary Impacted cerumen documented in this encounter [facility] note* Diagnosis Screening mammogram for breast cancer documented in this encounter [facility]* Diagnosis Closed 3-part fracture of proximal humerus with routine healing, right- Primary Right arm fracture, closed, initial encounter documented in this encounter [facility] Work Phone: [phone] note* Diagnosis Right arm fracture, closed, initial encounter documented in this encounter [facility] Work Phone: [phone] note* Diagnosis Right arm fracture, closed, initial encounter documented in this encounter [facility] Work Phone: [phone] note* Diagnosis Closed 3-part fracture of proximal humerus with routine healing, right Closed 3-part fracture of proximal humerus with routine healing, right Closed 3-part fracture of proximal humerus with routine healing, right documented in this encounter [facility] Work Phone: [phone] note* Diagnosis Closed 3-part fracture of proximal humerus with routine healing, right documented in this encounter [facility] Work Phone: [phone] note* Diagnosis Closed 3-part fracture of proximal humerus with routine healing, right documented in this encounter [facility] Work Phone: [phone] note* Diagnosis Closed 3-part fracture of proximal humerus with routine healing, right Closed 3-part fracture of proximal humerus with routine healing, right documented in this encounter [facility] Work Phone: [phone] note* Diagnosis Closed 3-part fracture of proximal humerus with routine healing, right documented in this encounter [facility] Work Phone: [phone] note* Diagnosis Closed 3-part fracture of proximal humerus with routine healing, right documented in this encounter [facility] Work Phone: [phone] note* Diagnosis Closed 3-part fracture of proximal humerus with routine healing, right Unspecified fracture of upper end of unspecified humerus, initial encounter for closed fracture- Primary documented in this encounter [facility] Work Phone: [phone] note* Diagnosis Preop examination- Primary Preoperative examination, unspecified Essential hypertension Unspecified essential hypertension Gastroesophageal reflux disease without esophagitis Esophageal reflux Obesity, Class III, BMI 40-49.9 (morbid obesity) (HCC) Morbid obesity [facility]* Diagnosis Unspecified fracture of upper end of unspecified humerus, initial encounter for closed fracture- Primary Closed 3-part fracture of proximal humerus with routine healing, right Unspecified fracture of upper end of unspecified humerus, initial encounter for closed fracture- Primary Unspecified fracture of upper end of unspecified humerus, initial encounter for closed fracture documented in this encounter [facility] Work Phone: [phone] note* Diagnosis Closed 3-part fracture of proximal humerus with routine healing, right- Primary documented in this encounter [facility] Work Phone: [phone] note* Diagnosis Unspecified fracture of upper end of unspecified humerus, initial encounter for closed fracture- Primary Unspecified fracture of upper end of unspecified humerus, initial encounter for closed fracture S/P reverse total shoulder arthroplasty, right Primary hypertension Unspecified essential hypertension Hyperlipidemia Other and unspecified hyperlipidemia Gastroesophageal reflux disease Esophageal reflux S/P reverse total shoulder arthroplasty, right documented in this encounter [facility] Work Phone: [phone] note* Diagnosis History of total shoulder replacement, right documented in this encounter [facility] Work Phone: [phone] note* Diagnosis S/P reverse total shoulder arthroplasty, right documented in this encounter [facility] Work Phone: [phone] note* Diagnosis Extensor tendon rupture of hand, right, initial encounter- Primary Wrist arthritis Unspecified arthropathy, forearm Polyarthralgia Pain in joint, multiple sites Wrist arthritis Unspecified arthropathy, forearm documented in this encounter [facility] Work Phone: [phone] note* Diagnosis Essential hypertension with goal blood pressure less than 130/80 [facility]* Diagnosis Wrist arthritis Unspecified arthropathy, forearm documented in this encounter [facility] Work Phone: [phone] note* Diagnosis Right arm fracture, closed, initial encounter- Primary History of total shoulder replacement, right S/P reverse total shoulder arthroplasty, right History of total shoulder replacement, right documented in this encounter [facility] Work Phone: Evaluation note* Diagnosis Polyarthralgia Pain in joint, multiple sites documented in this encounter [facility] Work Phone: Evaluation note* Diagnosis Extensor tendon rupture of hand, right, initial encounter- Primary documented in this encounter [facility] Work Phone: Evaluation note* Diagnosis Spontaneous rupture of extensor tendons, right hand- Primary History of total shoulder replacement, right S/P reverse total shoulder arthroplasty, right documented in this encounter [facility] Work Phone: Evaluation note* Diagnosis Preop examination- Primary Preoperative examination, unspecified Extensor tendon rupture of hand, right, subsequent encounter Bilateral lower extremity edema Edema Elevated antinuclear antibody (NOEMY) level Other and unspecified nonspecific immunological findings Elevated rheumatoid factor Other and unspecified nonspecific immunological findings [facility]* Diagnosis Bilateral lower extremity edema- Primary Edema Essential hypertension Unspecified essential hypertension [facility]* Diagnosis Spontaneous rupture of extensor tendons, right hand- Primary Spontaneous rupture of extensor tendons, right hand Class 2 obesity with body mass index (BMI) of 38.0 to 38.9 in adult documented in this encounter [facility] Work Phone: Evaluation note* Diagnosis Spontaneous rupture of extensor tendons, right hand- Primary History of total shoulder replacement, right S/P reverse total shoulder arthroplasty, right History of total shoulder replacement, right S/P reverse total shoulder arthroplasty, right documented in this encounter [facility] Work Phone: Evaluation note* Diagnosis Screening mammogram for breast cancer- Primary Screening mammogram for breast cancer [facility]* Diagnosis Bilateral lower extremity edema Edema Essential hypertension Unspecified essential hypertension [facility]* Diagnosis Bilateral impacted cerumen- Primary Impacted cerumen Sensorineural hearing loss, bilateral [facility]* Diagnosis Bilateral lower extremity edema On potassium wasting diuretic therapy [facility] Diagnosis Bilateral lower extremity edema Edema Essential hypertension Unspecified essential hypertension [facility]* Diagnosis Extensor tendon rupture of hand, right, initial encounter- Primary documented in this encounter [facility] Work Phone: Evaluation note* Diagnosis Closed 3-part fracture of proximal humerus with routine healing, right- Primary Right arm fracture, closed, initial encounter Closed 3-part fracture of proximal humerus with routine healing, right Closed 3-part fracture of proximal humerus with routine healing, right S/P reverse total shoulder arthroplasty, right documented in this encounter [facility] Work Phone: Evaluation note* Diagnosis Closed 3-part fracture of proximal humerus with routine healing, right- Primary Right arm fracture, closed, initial encounter Closed 3-part fracture of proximal humerus with routine healing, right Closed 3-part fracture of proximal humerus with routine healing, right S/P reverse total shoulder arthroplasty, right- Primary S/P reverse total shoulder arthroplasty, right documented in this encounter [facility] Work Phone: Evaluation note* Diagnosis Closed 3-part fracture of proximal humerus with routine healing, right- Primary Right arm fracture, closed, initial encounter Closed 3-part fracture of proximal humerus with routine healing, right Closed 3-part fracture of proximal humerus with routine healing, right Extensor tendon rupture of hand, right, initial encounter Extensor tendon rupture of hand, right, initial encounter documented in this encounter [facility] Work Phone: Evaluation note* Diagnosis Closed 3-part fracture of proximal humerus with routine healing, right- Primary Right arm fracture, closed, initial encounter Closed 3-part fracture of proximal humerus with routine healing, right Closed 3-part fracture of proximal humerus with routine healing, right Extensor tendon rupture of hand, right, initial encounter documented in this encounter [facility] Work Phone: Evaluation note* Diagnosis Closed 3-part fracture of proximal humerus with routine healing, right- Primary Right arm fracture, closed, initial encounter Closed 3-part fracture of proximal humerus with routine healing, right Closed 3-part fracture of proximal humerus with routine healing, right S/P reverse total shoulder arthroplasty, right- Primary S/P reverse total shoulder arthroplasty, right documented in this encounter [facility] Work Phone: Evaluation note* Diagnosis Closed 3-part fracture of proximal humerus with routine healing, right- Primary Right arm fracture, closed, initial encounter Closed 3-part fracture of proximal humerus with routine healing, right Closed 3-part fracture of proximal humerus with routine healing, right S/P reverse total shoulder arthroplasty, right documented in this encounter [facility] Work Phone: Evaluation note* Diagnosis Bilateral lower extremity edema Edema Essential hypertension Unspecified essential hypertension [facility] Diagnosis Closed 3-part fracture of proximal humerus with routine healing, right- Primary Right arm fracture, closed, initial encounter Closed 3-part fracture of proximal humerus with routine healing, right Closed 3-part fracture of proximal humerus with routine healing, right S/P reverse total shoulder arthroplasty, right- Primary S/P reverse total shoulder arthroplasty, right documented in this encounter [facility] Work Phone: Evaluation note* Diagnosis Closed 3-part fracture of proximal humerus with routine healing, right- Primary Right arm fracture, closed, initial encounter Closed 3-part fracture of proximal humerus with routine healing, right Closed 3-part fracture of proximal humerus with routine healing, right S/P reverse total shoulder arthroplasty, right documented in this encounter [facility] Work Phone: Evaluation note* Diagnosis Closed 3-part fracture of proximal humerus with routine healing, right- Primary Right arm fracture, closed, initial encounter Closed 3-part fracture of proximal humerus with routine healing, right Closed 3-part fracture of proximal humerus with routine healing, right Arthritis of right wrist Extensor tendon rupture of hand, right, initial encounter documented in this encounter [facility] Work Phone: Evaluation note* Diagnosis Closed 3-part [...] right, initial encounter documented in this encounter [facility] Work Phone: Evaluation note* Diagnosis Mixed hyperlipidemia- Primary Essential hypertension with goal blood pressure less than 130/80 Coronary artery dise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 Coronary artery dise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 Essential hypertension Unspecified essential hypertension LV dysfunction with recoverability Left heart failure Mixed hyperlipidemia Mixed hyperlipidemia Essential hypertension with goal blood pressure less than 130/80 Coronary artery dise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 Essential hypertension Unspecified essential hypertension LV dysfunction with recoverability Left heart failure Primary hypertension- Primary Unspecified essential hypertension LV dysfunction with recoverability Left heart failure [facility] Work [facility]: Evaluation [facility]* Diagnosis Mixed hyperlipidemia- Primary Essential hypertension with goal blood pressure less than 130/80 Coronary artery dise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 Coronary artery dise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 Essential hypertension Unspecified essential hypertension LV dysfunction with recoverability Left heart failure Mixed hyperlipidemia Mixed hyperlipidemia Essential hypertension with goal blood pressure less than 130/80 Coronary artery dise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 Essential hypertension Unspecified essential hypertension LV dysfunction with recoverability Left heart failure Mixed hyperlipidemia Essential hypertension with goal blood pressure less than 130/80 [facility]* Diagnosis Essential hypertension- Primary Unspecified essential hypertension Bilateral lower extremity edema Edema Dyslipidemia Other and unspecified hyperlipidemia Iron deficiency anemia, unspecified iron deficiency anemia type Gastroesophageal reflux disease without esophagitis Esophageal reflux Obesity, Class II, BMI 35-39.9 Obesity, unspecified Screening for depression Encounter for screening examination for other mental health and behavioral disorders Elevated antinuclear antibody (NOEMY) level Other and unspecified nonspecific immunological findings Elevated rheumatoid factor Other and unspecified nonspecific immunological findings documented in this encounter [facility] for referral (narrative)* Diagnostic Procedure Only (Routine) - Pending Review Specialty Diagnoses / Procedures Referred By Contac t Referred To Contact [facility] IMAG[facility] Diagnoses Visit for screening mammogram Procedures MILDRED SCREENING SCREENING MAMMOGRAPHY BI 2-VIEW BREAST INC Trace Uriostegui, [address] [place] [address] Br Imaging [address] [place] [address] Referral ID Status Reason Start Date Expiration Date Visits Requested Visits Authorized [id number] Pending Review Auto-Generat ed Referral 04/08/2023 1 1 [facility] for referral (narrative)* Consultation (Routine) - Pending Review Specialty Diagnoses / Procedures Referred By Phill yates Referred To Contact Physical Therapy Diagnoses S/P reverse total shoulder arthroplasty, right Indira Levy MD [address] [facility], [address] [place] [id number] Referral ID Status Reason Start Date Expiration Date Visits Requested Visits Authorized [id number] Pending Review Specialty Services Required 09/24/2023 09/23/2024 1 1 * Imaging (Routine) - Authorized Specialty Diagnoses / Procedures Referred By Phill yates Referred To Contact Radiology Diagnoses History of total shoulder replacement, right S/P reverse total shoulder arthroplasty, right Procedures XR shoulder right 2+ views Indira Levy MD [address] [facility], [address] [place] [id number] Referral ID Status Reason Start Date Expiration Date Visits Requested Visits Authorized [id number] Authorized Perform Procedure 09/24/2023 09/23/2024 1 1 [facility] Work Phone: Reason for referral (narrative)* Diagnostic Procedure Only (Routine) - Closed Specialty Diagnoses / Procedures Referred By Phill yates Referred To Contact [facility] Diagnoses Screening mammogram for breast cancer Procedures MILDRED SCREENING SCREENING MAMMOGRAPHY BI 2-VIEW BREAST INC CAD Kaylen Best, CAT OPERATOR.RACKMAN [address] [place] [address] [facility] [address] [place] [address] Referral ID Status Reason Start Date Expiration Date V isits Requested Visits Authorized [id number] Closed Auto-Generate d Referral 03/22/2023 04/20/2024 1 1 [facility] for referral (narrative)* Consultation (Routine) - Pending Review Specialty Diagnoses / Procedures Referred By Contact Referred To Contact Occupational Therapy Diagnoses Extensor tendon rupture of hand, right, initial encounter Maryam Abdullahi MD [address] [facility], [address] [place] [address] [place] [address] Referral ID Status Reason Start Date Expiration Date Visits Requested Visits Authorized [id number] Pending Review Specialty Services Required 10/19/2023 10/18/2024 1 1 [facility] Work Phone: [facility] for referral (narrative)* Consultation (Routine) - Pending Review Specialty Diagnoses / Procedures Referred By Contac t Referred To Contact Physical Therapy Diagnoses S/P reverse total shoulder arthroplasty, right Indira Levy MD [address] [facility], [address] [place] [id number] Referral ID Status Reason Start Date Expiration Date Visits Requested Visits Authorized [id number] Pending Review Specialty Services Required 11/12/2023 11/11/2024 1 1 * Imaging (Routine) - Authorized Specialty Diagnoses / Procedures Referred By Contac t Referred To Contact Radiology Diagnoses S/P reverse total shoulder arthroplasty, right Procedures XR shoulder right 2+ views Indira Levy MD [address] [facility], [address] [place] [id number] Referral ID Status Reason Start Date Expiration Date Visits Requested Visits Authorized [id number] Authorized Perform Procedure 11/12/2023 11/11/2024 1 1 [facility] Work Phone: Reason for referral (narrative)No reason for referral information availableWGerman Hospital Work Phone: Reason for visit Narrative* Diagnostic Procedure Only (Routine) - Closed Specialty Diagnoses / Procedures Referred By Contac t Referred To Contact [facility] IMAG[facility] Diagnoses Visit for screening mammogram Procedures MILDRED SCREENING SCREENING MAMMOGRAPHY BI 2-VIEW BREAST INC CAD Trace Mendiola, DO [address] [place] [address] [facility] Imaging [address] [place] [address] Referral ID Status Reason Start Date Expiration Date V isits Requested Visits Authorized [id number] Closed Auto-Generate d Referral 03/09/2022 04/08/2023 1 1 [facility] for visit Narrative* Diagnostic Procedure Only (Routine) - Closed Specialty Diagnoses / Procedures Referred By Contac t Referred To Contact [facility] Diagnoses Screening mammogram for breast cancer Procedures MILDRED SCREENING SCREENING MAMMOGRAPHY BI 2-VIEW BREAST INC CAD Kaylen Best, VICKY.RACKMAN [address] [place] [address] [facility] [address] [place] [address] Referral ID Status Reason Start Date Expiration Date V isits Requested Visits Authorized [id number] Closed Auto-Generate d Referral 03/22/2023 04/20/2024 1 1 [facility] [facility] for visit Narrative* Imaging (Routine) - Authorized Specialty Diagnoses / Procedures Referred By Phill t Referred To Contact Radiology Diagnoses S/P reverse total shoulder arthroplasty, right Procedures XR shoulder right 2+ views Indira Levy MD [address] [facility], [address] [place] [address] Phone: tel: fax: Referral ID Status Reason Start Date Expiration Date Visits Requested Visits Authorized [id number] Authorized Perform Procedure 08/07/2024 08/07/2025 1 1 [facility] Work Phone: Reason for visit Narrative* Imaging (Routine) - Authorized Specialty Diagnoses / Procedures Referred By Phill yates Referred To Contact Radiology Diagnoses Arthritis of right wrist Extensor tendon rupture of hand, right, initial encounter Procedures XR wrist right 3+ views Maryam Abdullahi MD [address] [facility], [address] [place] [address] Phone: tel: fax: Referral ID Status Reason Start Date Expiration Date Visits Requested Visits Authorized [id number] Authorized Perform Procedure 08/14/2024 08/14/2025 1 1 [facility] Work Phone: Instructions * Patient Instructions - [...] CANDICE KIRAN NURSE: NKECHI MCKEON RN PHONE: [phone] FAX: [phone] documented in this encounter Assessments Diagnosis Edema of both legs - Primary Edema Coronary artery disease invo lving [place] coronary artery of [place] heart without angina pectoris Essential hypertension Unspecified essential hypertension LV dysfunction with recovera bility Left heart failure Mixed hyperlipidemia Diagnosis Coronary artery dise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 Essential hypertension Unspecified essential hypertension LV dysfunction with recoverability Left heart failure Mixed hyperlipidemia Diagnosis Mixed hyperlipidemia Essential hypertension with goal blood pressure less than 130/80 Coronary artery dise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 Essential hypertension Unspecified essential hypertension LV dysfunction with recoverability Left heart failure Diagnosis Coronary artery dise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- Primary Mixed hyperlipidemia LV dysfunction with recoverability Left heart failure Essential hypertension Unspecified essential hypertension Diagnosis Mixed hyperlipidemia Essential hypertension with goal blood pressure less than 130/80 Diagnosis Essential hypertension with goal blood pressure less than 130/80 History of Present Illness * Shawna Zhou CNP - 09/07/2018 9:15 AM EDT Subjective: Trace CadenarisDO Felisha brady is a 73 y.o. female seen in the office today for Follow-up (6mo-Pt Denies Chest pain/pressure/SOB/Swelling ) . HPI: She was seen at [facility] heart and vascular physicians [place] office on September 07, 2018. She is [...] Hyperlipidemia Hypertension Non-ST elevation myocardial infarction (NSTEMI) ([facility]) 03/2014 Osteoarthritis Past Surgical History: Procedure Laterality [...] of fluid retention in the office today. Yancey Heart Association functional class I Hyperlipidemia Currently [...] ) . HPI: She was seen at [facility] heart and vascular physician [facility] on May 17, 2019. She is a 74-year-old female with history of coronary artery disease, non-ST elevation myocardial infarction, gastroesophageal reflux disease, hypertension, hyperlipidemia, and osteoarthritis. She is status post non-STEMI in 2013. Left heart catheterization at that time found nonobstructive coronary disease and ejection fraction of 40%. By echocardiogram in 2016 EF had improved to 55 to 60%. [...] Hyperlipidemia Hypertension Non-ST elevation myocardial infarction (NSTEMI) ([facility]) 03/2014 Osteoarthritis Past Surgical History: Procedure Laterality [...] the office today. Denies any significant symptoms. [facility] I Orders Placed This Encounter [...] Phone Call [facility] [address] ([address]) [facility] [address] [facility] [phone] Telephone Visit [facility] 05/21/2020 Candice Kiran MD Provider Location[facility] [address] ([address]) [facility] [address] [facility] [id number] Patient Location Distribution A Class Lineman: None Patient Location: Patient's Home Patient: Felisha [...] there are inherent diagnostic limitations compared to [id number] evaluations. We elected toproceed with the telephone [...] Care. 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 Advance Directives and Living Will [...] Right Eye Surgeon: Yaya Juan MD Resident/Fellow/Other Med Peds: None Estimated Blood Loss (mL): none Specimen: [...] Left Eye Surgeon: Yaya Juan MD Resident/Fellow/Other Med Peds: None Estimated Blood Loss (mL): none Specimen: [...] Referral Specialty Diagnoses / Procedures Referred By Phill t Referred To Contact Cardiology Diagnoses Coronary artery dise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 Procedures ECG 12 lead Peyton Kenyon, RACKMAN [address] [place] [address] Referral ID Status Reason Start Date Expiration Date V isits Requested Visits Authorized [id number] Authorized 11/24/2021 11/24/2022 1 1 Specialty Diagnoses / Procedures Referred By Contac t Referred To Contact Radiology Diagnoses Right arm fracture, closed, initial encounter Procedures XR humerus right Sam Gracia MD [address] [facility] [address] [place] [id number] Referral ID Status Reason Start Date Expiration Date Visits Requested Visits Authorized [id number] Authorized Perform Procedure 06/09/2023 06/08/2024 1 1 Specialty Diagnoses / Procedures Referred By Contac t Referred To Contact Radiology Diagnoses Closed 3-part fracture of proximal humerus with routine healing, right Procedures XR humerus right Sam Gracia MD [address] [facility] [facility] [address] [place] [address] Referral ID Status Reason Start Date Expiration Date Visits Requested Visits Authorized [id number] Authorized Perform Procedure 06/18/2023 06/17/2024 1 1 Specialty Diagnoses / Procedures Referred By Contac t Referred To Contact Radiology Diagnoses Closed 3-part fracture of proximal humerus with routine healing, right Procedures XR shoulder right 2+ views Sam Gracia MD [address] [facility] [facility] [address] [place] [phone] Referral ID Status Reason Start Date Expiration Date Visits Requested Visits Authorized [id number] Authorized Perform Procedure 06/18/2023 06/17/2024 1 1 Referral ID Status Reason Start Date Expiration Date Visits Requested Visits Authorized [id number] Authorized Perform Procedure 06/28/2023 06/27/2024 1 1 Specialty Diagnoses / Procedures Referred By Contac t Referred To Contact Radiology Diagnoses Closed 3-part fracture of proximal humerus with routine healing, right Procedures CT shoulder right wo IV contrast Indira Levy MD [address] [facility], [address] [place] [address] Referral ID Status Reason Start Date Expiration Date Visits Requested Visits Authorized [id number] Authorized Perform Procedure 07/15/2023 07/14/2024 1 1 Specialty Diagnoses / Procedures Referred By Contac t Referred To Contact Radiology Diagnoses History of total shoulder replacement, right Procedures XR shoulder right 2+ views Indira Levy MD [address] [facility], [address] [place] [address] Referral ID Status Reason Start Date Expiration Date Visits Requested Visits Authorized [id number] Authorized Perform Procedure 08/27/2023 08/26/2024 1 1 Specialty Diagnoses / Procedures Referred By Contac t Referred To Contact Radiology Diagnoses S/P reverse total shoulder arthroplasty, right Procedures XR shoulder right 2+ views Indira Levy MD [address] [facility], [address] [place] [address] Referral ID Status Reason Start Date Expiration Date Visits Requested Visits Authorized [id number] Authorized Perform Procedure 08/30/2023 08/29/2024 1 1 Specialty Diagnoses / Procedures Referred By Contac t Referred To Contact Radiology Diagnoses Polyarthralgia Procedures MR wrist right wo IV contrast Maryam Abdullahi MD [address] [facility], [address] [place] [address] Referral ID Status Reason Start Date Expiration Date Visits Requested Visits Authorized [id number] Pending Review Perform Procedure 09/03/2023 09/02/2024 1 1 Specialty Diagnoses / Procedures Referred By Contac t Referred To Contact Radiology Diagnoses Wrist arthritis Procedures XR wrist right 3+ views Maryam Abdullahi MD [address] [facility], [address] [place] [address] Referral ID Status Reason Start Date Expiration Date Visits Requested Visits Authorized [id number] Authorized Perform Procedure 09/03/2023 09/02/2024 1 1 Referral ID Status Reason Start Date Expiration Date Visits Requested Visits Authorized [id number] Authorized Perform Procedure 09/03/2023 09/02/2024 1 1 Specialty Diagnoses / Procedures Referred By Contac t Referred To Contact Radiology Diagnoses History of total shoulder replacement, right S/P reverse total shoulder arthroplasty, right Procedures XR shoulder right 2+ views Indira Levy MD [address] [facility], [address] [place] [address] Referral ID Status Reason Start Date Expiration Date Visits Requested Visits Authorized [id number] Authorized Perform Procedure 09/24/2023 09/23/2024 1 1 Specialty Diagnoses / Procedures Referred By Contac t Referred To Contact Rheumatology Diagnoses Elevated antinuclear antibody (NOEMY) level Elevated rheumatoid factor Procedures CONSULT TO RHEUM/IMMUN DISEASE OFFICE/OUTPATIENT NEW HIGH MDM 60 MINUTES Chyna Grimm APRN.RACKMAN [address] [place] [address] Referral ID Status Reason Start Date Expiration Date Visits Requested Visits Authorized [id number] Authorized PCP Requested Referral 09/28/2023 09/27/2024 1 1 Referral ID Status Reason Start Date Expiration Date Visits Requested Visits Authorized [id number] Authorized Perform Procedure 11/12/2023 11/11/2024 1 1 Specialty Diagnoses / Procedures Referred By Phill t Referred To Contact Radiology Diagnoses Extensor tendon rupture of hand, right, initial encounter Procedures XR wrist right 3+ views Maryam Abdullahi MD [address] [facility], [address] [place] [address] Referral ID Status Reason Start Date Expiration Date Visits Requested Visits Authorized [id number] Authorized Perform Procedure 01/03/2024 01/02/2025 1 1 Referral ID Status Reason Start Date Expiration Date Visits Requested Visits Authorized [id number] Authorized Perform Procedure 01/05/2024 01/04/2025 1 1 [...] 1 Drop, BOTH EYES, DIRECTED, Starting on 07/08/22 at 1430, Until Elda 07/09/22 at 0229, [...] Given 08/21/2022 2:19 PM EDT 1 Drop Chief Complaint and Reason for Visit Chief Complaint Admit Date PAIN- COPY PCP October 04, 2024 10:2 8am Additional Source Comments Reason for Visit (unrecogniz [...] Referred By Phill t Referred To Contact Orthopaedic Surgery / Orthopedic Surgery Rick Núñez, CAT OPERATOR-RACKMAN [address] Department [place] [address] Referral ID Status Reason Start Date Expiration Date Visits Requested Visits Authorized [id number] Authorized Specialty Services Required 06/07/2023 06/06/2024 1 1 Specialty Diagnoses / Procedures Referred By Contac t Referred To Contact Radiology Diagnoses Right arm fracture, closed, initial encounter Procedures XR humerus right Sam Gracia MD [address] [place] [phone] Referral ID Status Reason Start Date Expiration Date Visits Requested Visits Authorized [id number] Authorized Perform Procedure 06/09/2023 06/08/2024 1 1 Reason Comments Follow-up Patient is here for FUV for Right Humerus fracture that occurred on 06/07/2023. Fracture Patient is here for FUV for Right Humerus fracture that occurred on 06/07/2023. Specialty Diagnoses / Procedures Referred By Contac t Referred To Contact Radiology Diagnoses Closed 3-part fracture of proximal humerus with routine healing, right Procedures XR shoulder right 2+ views Sam Gracia MD [address] [place] [address] Referral ID Status Reason Start Date Expiration Date Visits Requested Visits Authorized [id number] Authorized Perform Procedure 06/18/2023 06/17/2024 1 1 Specialty Diagnoses / Procedures Referred By Contac t Referred To Contact Radiology Diagnoses Closed 3-part fracture of proximal humerus with routine healing, right Procedures XR humerus right Basil, Sam Aly MD [address] [facility] [facility] [address] [place] [address] Referral ID Status Reason Start Date Expiration Date Visits Requested Visits Authorized [id number] Authorized Perform Procedure 06/18/2023 06/17/2024 1 1 Reason Comments Pain FELL 06-07-23 Referral ID Status Reason Start Date Expiration Date Visits Requested Visits Authorized [id number] Authorized Perform Procedure 06/28/2023 06/27/2024 1 1 [...] right wo IV contrast Indira Levy MD [address] [facility], [address] [place] [address] Referral ID Status Reason Start Date Expiration Date Visits Requested Visits Authorized [id number] Authorized Perform Procedure 07/15/2023 07/14/2024 1 1 Reason Comments Clearance form incomplete Reason Comments Pre-op Exam TOTAL RIGHT ARTHROPL ASTY SHOULDER REVERSE POSSIBLE BICEPS TENODESIS on 08-10-23 Specialty Diagnoses / Procedures Referred By Phill yates Referred To Contact Diagnoses Unspecified fracture of upper end of unspecified humerus, initial encounter for closed fracture Unspecified fracture of upper end of unspecified humerus, initial encounter for closed fracture [S42.209A] Procedures CA ARTHROPLASTY GLENOHUMERAL JOINT TOTAL SHOULDER CA TENODESIS LONG TENDON BICEPS TOTAL RIGHT ARTHROPLASTY SHOULDER REVERSE POSSIBLE BICEPS TENODESIS, LE TORNIER, REVIVE STEMS AVAILABLE , BRYNN PEREZ, beach chair, 23 HR. OBS/BEDDED OP Indira Levy MD [address] [facility], [address] [place] [address] [address] [facility] [place] [address] Referral ID Status Reason Start Date Expiration Date Visits Re quested Visits Authorized [id number] 1 1 Specialty Diagnoses / Procedures Referred By Contac t Referred To Contact Radiology Diagnoses History of total shoulder replacement, right Procedures XR shoulder right 2+ views Indira Levy MD [address] [facility], [address] [place] [address] Referral ID Status Reason Start Date Expiration Date Visits Requested Visits Authorized [id number] Authorized Perform Procedure 08/27/2023 08/26/2024 1 1 Specialty Diagnoses / Procedures Referred By Contac t Referred To Contact Radiology Diagnoses S/P reverse total shoulder arthroplasty, right Procedures XR shoulder right 2+ views Indira Levy MD [address] [facility], [address] [place] [address] Referral ID Status Reason Start Date Expiration Date Visits Requested Visits Authorized [id number] Authorized Perform Procedure 08/30/2023 08/29/2024 1 1 [...] 3+ views Maryam Abdullahi MD [address] [facility], [address] [place] [address] Referral ID Status Reason Start Date Expiration Date Visits Requested Visits Authorized [id number] Authorized Perform Procedure 09/03/2023 09/02/2024 1 1 Reason Comments Post-op TS-Reverse DOS: 08/09 (2.5 weeks out)Xrays today Specialty Diagnoses / Procedures Referred By Contac t Referred To Contact Radiology Diagnoses Polyarthralgia Procedures MR wrist right wo IV contrast Maryam Abdullahi MD [address] [facility], [address] [place] [address] Referral ID Status Reason Start Date Expiration Date Visits Requested Visits Authorized [id number] Authorized Perform Procedure 09/03/2023 09/02/2024 1 1 Reason Comments Follow-up MRI REVIEW Specialty Diagnoses / Procedures Referred By Phill yates Referred To Contact Radiology Diagnoses History of total shoulder replacement, right S/P reverse total shoulder arthroplasty, right Procedures XR shoulder right 2+ views Indira Levy MD [address] [facility], [address] [place] [address] Referral ID Status Reason Start Date Expiration Date Visits Requested Visits Authorized [id number] Authorized Perform Procedure 09/24/2023 09/23/2024 1 1 Reason Comments Pre-Op Exam Tendon repair right hand on 10/06. Swelling in bita legs. 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, right hand [M66.241] Procedures CA EXCISION DISTAL ULNA PARTIAL/COMPLETE CA TR TDN RESTORE INTRNSC FUNCJ RING&SM FNGR CA SYNOVECTOMY EXTENSOR TENDON SHTH WRIST 1 CMPRT Ulna Distal Ward Procedure, Small + Ring Finger Extensor Tendon Transfer, Extensor Tenosynovectomy Maryam Abdullahi MD [address] [facility], [address] [place] [address] [place] [address] [facility] [place] [address] Referral ID Status Reason Start Date Expiration Date Visits Re quested Visits Authorized [id number] 1 1 Reason Onset Date Comments Population Health Navigation Outreach 10/13/2023 [employer] work[employer] [place] Reason Comments Post-op TS-Reverse DOS: 08/09 - 45 days outXrays today Reason Comments Patient Question Reason Comments Refill Request Reason Onset Date Comments Population Health Navigation Outreach 12/13/2023 [employer] [place] Reason Comments 1 year follow up ear cleaning Reason Onset Date Comments [facility] Navigation Outreach 02/24/2024 [employer] work[employer] [place] Reason Onset Date Comments Refill Request 03/02/2024 Reason Comments Post-op Ulna distal ward+s mall finger extensor tendon transfer 10/07/23 Referral ID Status Reason Start Date Expiration Date Visits Requested Visits Authorized [id number] Authorized Perform Procedure 11/12/2023 11/11/2024 1 1 Reason Comments Follow-up TS-ReverseDOS: (13 weeks out)Xrays today Reason Comments Follow-up Ulna distal ward+s mall finger extensor tendon transfer 10/07/23 Specialty Diagnoses / Procedures Referred By Phill yates Referred To Contact Radiology Diagnoses Extensor tendon rupture of hand, right, initial encounter Procedures XR wrist right 3+ views Maryam Abdullahi MD [address] [facility], [address] [place] [address] Referral ID Status Reason Start Date Expiration Date Visits Requested Visits Authorized [id number] Authorized Perform Procedure 01/03/2024 01/02/2025 1 1 Reason Comments Follow-up TS-everseDOS: 4 (5 months)Xrays today Referral ID Status Reason Start Date Expiration Date Visits Requested Visits Authorized [id number] Authorized Perform Procedure 01/05/2024 01/04/2025 1 1 Reason Onset Date Comments Allied Health Visit 05/29/2024 Medication A dherence Outreach Reason Comments Medicare Wellness Exam Reason Comments Follow-up Patient has no cardi ac concerns today Reason Comments F/U 6 Month Reason Onset Date Comments Population Health Navigation Outreach 12/20/2024 [facility] Sprint list Assessment & Plan Note - Shawna Zhou [...] of fluid retention in the office today. Yancey Heart Association functional class I Associated Problem(s): [...] the office today. Denies any significant symptoms. [employer]y Heart Association functional class I Associated Problem(s): [...] section and content) DATE CREATED AUTHOR 05/27/2019 [facility] DATE CREATED AUTHOR AUTHOR'S ORGANIZ ATION 01/17/2020 [facility] DATE CREATED AUTHOR AUTHOR'S ORGANIZ ATION 01/23/2020 [facility] DATE CREATED AUTHOR AUTHOR'S ORGANIZ ATION 09/17/2023 [facility] DATE CREATED AUTHOR AUTHOR'S ORGANIZ ATION 11/15/2023 [facility] DATE CREATED AUTHOR AUTHOR'S ORGANIZ ATION 01/20/2024 [facility] DATE CREATED AUTHOR AUTHOR'S ORGANIZ ATION 09/10/2024 [facility] DATE CREATED AUTHOR AUTHOR'S ORGANIZ ATION 09/29/2024 [facility] DATE CREATED AUTHOR AUTHOR'S ORGANIZ ATION 10/14/2024 [facility] DATE CREATED AUTHOR AUTHOR'S ORGANIZ ATION 11/27/2024 [facility] DATE CREATED AUTHOR AUTHOR'S ORGANIZ ATION 12/22/2024 [facility] Care Teams (unrecognized sec tion and content) First Aid Attendant Relationship Specialty Start Date End Date Trace Mendiola, DO [address] [facility] [address] [place] [address] PCP - General Endocrinology/Metabol ism 08/05/15 Giancarlo Cesar DPM Independent Clinician Podiatry 10/04/15 First Aid Attendant Relationship Specialty Start Date End Date Trace Mendiola, DO [address] [facility] [address] [place] [address] PCP - General Endocrinology/Metabol ism 08/05/15 Giancarlo Cesar DPM Independent Clinician Podiatry 10/04/15 First Aid Attendant Relationship Specialty Start Date End Date Trace Mendiola, DO [address] [facility] [address] [place] [address] PCP - General Endocrinology/Metabol ism 08/05/15 Giancarlo Cesar DPM Independent Clinician Podiatry 10/04/15 First Aid Attendant Relationship Specialty Start Date End Date Trace Mendiola, DO [address] [facility] [place] [address] PCP - General Family Medicine 08/01/13 First Aid Attendant Relationship Specialty Start Date End Date Trace Mendoila, DO [address] [facility] [place] [address] PCP - General Family Medicine 08/01/13 First Aid Attendant Relationship Specialty Start Date End Date Trace Mendiola, DO [address] [facility] [place] [address] PCP - General Family Medicine 08/01/13 First Aid Attendant Relationship Specialty Start Date End Date Trace Mendiola, DO [address] [facility] [address] [place] [address] PCP - General Endocrinology/Metabol ism 08/05/15 Giancarlo Cesar, DPM [address] [facility] [address] [place] [address] Independent Clinician Podiatry 10/04/15 First Aid Attendant Relationship Specialty Start Date End Date Trace Mendiola, DO [address] [facility] [address] [place] [address] PCP - General Endocrinology/Metabol ism 08/05/15 Giancarlo Cesar, DPM [address] [facility] [address] [place] [address] Independent Clinician Podiatry 10/04/15 First Aid Attendant Relationship Specialty Start Date End Date Trace Mendiola, DO [address] [facility] [place] [address] PCP - General Family Medicine 08/01/13 First Aid Attendant Relationship Specialty Start Date End Date Trace Mendiola, DO [address] [facility] [place] [address] PCP - General Family Medicine 08/01/13 First Aid Attendant Relationship Specialty Start Date End Date Trace Mendiola, DO [address] [facility] [place] [address] PCP - General Family Medicine 08/01/13 First Aid Attendant Relationship Specialty Start Date End Date Trace Mendiola DO [address] [facility] [address] [place] [address] PCP - General Endocrinology/Metabol ism 08/05/15 Giancarlo Cesar DPM [address] [facility] [place] [address] Independent Clinician Podiatry 10/04/15 First Aid Attendant Relationship Specialty Start Date End Date Trace Mendiola DO [address] [facility] [address] [place] [address] PCP - General Endocrinology/Metabol ism 08/05/15 Giancarlo Cesar DPM [address] [place] [address] [address] [place] [address] Independent Clinician Podiatry 10/04/15 First Aid Attendant Relationship Specialty Start Date End Date Trace Mendiola DO [address] [facility] [place] [address] PCP - General Family Medicine 08/01/13 First Aid Attendant Relationship Specialty Start Date End Date Trace Mendiola DO [address] [place] [facility] [address] [place] [address] PCP - General Endocrinology/Metabol ism 08/05/15 Giancarlo Cesar DPM [facility] [address] [place] [address] Independent Clinician Podiatry 10/04/15 First Aid Attendant Relationship Specialty Start Date End Date Trace Mendiola, DO [address] [facility] [place] [address] PCP - General Family Medicine 08/01/13 First Aid Attendant Relationship Specialty Start Date End Date Trace Mendiola DO [address] [facility] [place] [address] PCP - General Family Medicine 08/01/13 First Aid Attendant Relationship Specialty Start Date End Date Trace Mendiola, [address] [facility] [place] [address] PCP - General Family Medicine 08/01/13 First Aid Attendant Relationship Specialty Start Date End Date Trace Mendiola DO [address] [facility] [place] [address] PCP - General Family Medicine 06/07/23 First Aid Attendant Relationship Specialty Start Date End Date Trace Mendiola DO [address] [facility] [place] [address] PCP - General Family Medicine 06/07/23 First Aid Attendant Relationship Specialty Start Date End Date Trace Mendiola DO [address] [facility] [place] [address] PCP - General Family Medicine 06/07/23 First Aid Attendant Relationship Specialty Start Date End Date Trace Mendiola DO [address] [facility] [place] [address] PCP - General Family Medicine 06/07/23 First Aid Attendant Relationship Specialty Start Date End Date Trace Mendiola DO [address] [facility] [place] [address] PCP - General Family Medicine 06/07/23 First Aid Attendant Relationship Specialty Start Date End Date Trace Mendiola, [address] [place] [address] PCP - General Family Medicine 06/07/23 First Aid Attendant Relationship Specialty Start Date End Date Trace Mendiola DO [address] [place] [address] PCP - General Family Medicine 06/07/23 First Aid Attendant Relationship Specialty Start Date End Date Trace Mendiola DO [address] [place] [address] PCP - General Family Medicine 06/07/23 First Aid Attendant Relationship Specialty Start Date End Date Trace Mendiola DO [address] [place] [address] PCP - General Family Medicine 06/07/23 First Aid Attendant Relationship Specialty Start Date End Date Trace Mendiola DO [address] [place] [address] PCP - General Family Medicine 08/01/13 First Aid Attendant Relationship Specialty Start Date End Date Trace Mendiola, [address] [place] [address] PCP - General Family Medicine 08/01/13 First Aid Attendant Relationship Specialty Start Date End Date Trace Mendiola DO [address] [place] [address] PCP - General Family Medicine 06/07/23 First Aid Attendant Relationship Specialty Start Date End Date Trace Mendiola DO [address] [place] [address] PCP - General Family Medicine 08/01/13 First Aid Attendant Relationship Specialty Start Date End Date Trace Mendiola DO [address] [place] [address] PCP - General Family Medicine 06/07/23 First Aid Attendant Relationship Specialty Start Date End Date Trace Mendiola DO [address] [place] [address] PCP - General Family Medicine 06/07/23 First Aid Attendant Relationship Specialty Start Date End Date Trace Mendiola DO [address] [place] [address] PCP - General Family Medicine 06/07/23 First Aid Attendant Relationship Specialty Start Date End Date Trace Mendiola DO [address] [place] [address] PCP - General Family Medicine 06/07/23 First Aid Attendant Relationship Specialty Start Date End Date Trace Mendiola DO [address] [place] [address] PCP - General Family Medicine 06/07/23 First Aid Attendant Relationship Specialty Start Date End Date Trace Mendiola DO [address] [place] [address] PCP - General Family Medicine 06/07/23 First Aid Attendant Relationship Specialty Start Date End Date Trace Mendiola DO [address] [place] [address] PCP - General Family Medicine 06/07/23 First Aid Attendant Relationship Specialty Start Date End Date Trace Mendiola DO [address] [place] [address] PCP - General Family Medicine 06/07/23 First Aid Attendant Relationship Specialty Start Date End Date Trace Mendiola DO [address] [place] [address] PCP - General Family Medicine 06/07/23 First Aid Attendant Relationship Specialty Start Date End Date Trace Mendiola DO [address] [place] [address] PCP - General Family Medicine 08/01/13 First Aid Attendant Relationship Specialty Start Date End Date Trace Mendiola DO [address] [place] [address] PCP - General Family Medicine 08/01/13 First Aid Attendant Relationship Specialty Start Date End Date Trace Mendiola DO [address] [place] [address] PCP - General Family Medicine 06/07/23 First Aid Attendant Relationship Specialty Start Date End Date Trace Mendiola DO [address] [place] [address] PCP - General Family Medicine 06/07/23 First Aid Attendant Relationship Specialty Start Date End Date Trace Mendiola DO [address] [place] [address] PCP - General Family Medicine 08/01/13 First Aid Attendant Relationship Specialty Start Date End Date Trace Mendiola DO [address] [place] [address] PCP - General Family Medicine 08/01/13 First Aid Attendant Relationship Specialty Start Date End Date Trace Mendiola DO [address] [facility] [place] [address] PCP - General Family Medicine 08/01/13 First Aid Attendant Relationship Specialty Start Date End Date Trace Mendiola DO [address] [facility] [place] [address] PCP - General Endocrinology/Metabol ism 08/05/15 Giancarlo Cesar DPM [address] [facility] [place] [address] Independent Clinician Podiatry 10/04/15 First Aid Attendant Relationship Specialty Start Date End Date Trace Mendiola DO [address] [facility] [place] [address] PCP - General Family Medicine 06/07/23 First Aid Attendant Relationship Specialty Start Date End Date Trace Mendiola DO [address] [facility] [place] [address] PCP - General Family Medicine 06/07/23 First Aid Attendant Relationship Specialty Start Date End Date Trace Mendiola DO [address] [facility] [place] [address] PCP - General Family Medicine 06/07/23 First Aid Attendant Relationship Specialty Start Date End Date Trace Mendiola DO [address] [facility] [place] [address] PCP - General Family Medicine 06/07/23 First Aid Attendant Relationship Specialty Start Date End Date Trace Mendiola DO [address] [facility] [place] [address] PCP - General Family Medicine 06/07/23 First Aid Attendant Relationship Specialty Start Date End Date Trace Mendiola DO [address] [facility] [place] [address] PCP - General Family Medicine 08/01/13 Kaylen Best, CAT OPERATOR.RACKMAN [address] [facility] [place] [address] Cane Weigher Helper Family [facility] 04/02/24 [facility], CAT OPERATOR.RACKMAN [address] [facility] [place] [address] [facility] First Aid Attendant Relationship Specialty Start Date End Date Trace Mendiola DO [address] [facility] [place] [address] PCP - General Family Medicine 08/01/13 Kaylen Best, CAT OPERATOR.RACKMAN [address] [facility] [place] [address] [facility] 04/02/24 [facility], CAT OPERATOR.RACKMAN [address] [facility] [place] [address] [facility] 04/[facility]/24 First Aid Attendant Relationship Specialty Start Date End Date Trace Mendiola DO [address] [facility] [place] [address] PCP - General Family Medicine 08/01/13 Kaylen Best, CAT OPERATOR.RACKMAN [address] [facility] [place] [address] Cane Weigher Helper Family [facility] 04/02/24 [facility], CAT OPERATOR.RACKMAN [address] [facility] [place] [address] Cane We[facility]her [facility] 04/02/24 First Aid Attendant Relationship Specialty Start Date End Date Trace Mendiola DO [address] [facility] [place] [address] PCP - General Family Medicine 06/07/23 First Aid Attendant Relationship Specialty Start Date End Date Trace Mendiola DO [address] [facility] [place] [address] PCP - General Family Medicine 06/07/23 First Aid Attendant Relationship Specialty Start Date End Date Trace Mendiola DO [address] [facility] [address] [place] [address], [place] [address] PCP - General Endocrinology/Metabol ism 08/05/15 Giancarlo Cesar DPM [address] [place] [address] Independent Clinician Podiatry 10/04/15 Team Status: Active Member Role Status Dates Dr. Trace Mendiola DO Primary Care Provider Active Team Status: Inactive Member Role Status Dates Dr. Trace Mendiola DO Primary Care Provider Active Start: October 04, 2024 End: October 04, 2024 Dr. Love Gunter MD Attending Provider Active Start: October 04, 2024 End: October 04, 2024 Dr. Love Gunter MD Referring Provider Active Start: October 04, 2024 End: October 04, 2024 First Aid Attendant Relationship Specialty Start Date End Date Trace Mendiola DO [address] [place] [address] PCP - General Endocrinology/Metabol ism 08/05/15 Giancarlo Cesar DPM [address] [facility] [address] [place] [address] Independent Clinician Podiatry 10/04/15 First Aid Attendant Relationship Specialty Start Date End Date Trace Mendiola DO [address] [place] [address] PCP - General Family Medicine 08/01/13 Chyna Grimm, CAT OPERATOR.RACKMAN [address] [place] [address] [facility] 04/02/24 Lyndsey Neumann, CAT OPERATOR.RACKMAN [address] [place] [address] [facility] 10/09/24 First Aid Attendant Relationship Specialty Start Date End Date Trace Mendiola DO [address] [place] [address] PCP - General Family Medicine 08/01/13 [facility]cy[facility], CAT OPERATOR.RACKMAN [address] [place] [address] [facility] 04/02/24 Lyndsey Neumann, CAT OPERATOR.RACKMAN [address] [place] [address] [facility] 10/09/24 Source Comments (unrecognize d section and content) In the event this informatio n is protected by the Federal Confidentiality of Alcohol and Drug Abuse Patient Records regulations: The Federal rules restrict any use of the information to criminally investigate or prosecute any alcohol or drug abuse patient.[facility] DaytonIn the event this information is protected by the Federal Confidentiality of Alcohol and Drug Abuse Patient Records regulations: The Federal rules restrict any use of the information to criminally investigate or prosecute any alcohol or drug abuse patient.[facility] DaytonIn the event this information is protected by the Federal Confidentiality of Alcohol and Drug Abuse Patient Records regulations: The Federal rules restrict any use of the information to criminally investigate or prosecute any alcohol or drug abuse patient.[facility] DaytonIn the event this information is protected by the Federal Confidentiality of Alcohol and Drug Abuse Patient Records regulations: The Federal rules restrict any use of the information to criminally investigate or prosecute any alcohol or drug abuse patient.[facility] DaytonIn the event this information is protected by the Federal Confidentiality of Alcohol and Drug Abuse Patient Records regulations: The Federal rules restrict any use of the information to criminally investigate or prosecute any alcohol or drug abuse patient.[facility] DaytonIn the event this information is protected by the Federal Confidentiality of Alcohol and Drug Abuse Patient Records regulations: The Federal rules restrict any use of the information to criminally investigate or prosecute any alcohol or drug abuse patient.[facility] DaytonIn the event this information is protected by the Federal Confidentiality of Alcohol and Drug Abuse Patient Records regulations: The Federal rules restrict any use of the information to criminally investigate or prosecute any alcohol or drug abuse patient.[facility] DaytonIn the event this information is protected by the Federal Confidentiality of Alcohol and Drug Abuse Patient Records regulations: The Federal rules restrict any use of the information to criminally investigate or prosecute any alcohol or drug abuse patient.[facility] DaytonIn the event this information is protected by the Federal Confidentiality of Alcohol and Drug Abuse Patient Records regulations: The Federal rules restrict any use of the information to criminally investigate or prosecute any alcohol or drug abuse patient.[facility] DaytonIn the event this information is protected by the Federal Confidentiality of Alcohol and Drug Abuse Patient Records regulations: The Federal rules restrict any use of the information to criminally investigate or prosecute any alcohol or drug abuse patient.[facility] DaytonIn the event this information is protected by the Federal Confidentiality of Alcohol and Drug Abuse Patient Records regulations: The Federal rules restrict any use of the information to criminally investigate or prosecute any alcohol or drug abuse patient.[facility] DaytonIn the event this information is protected by the Federal Confidentiality of Alcohol and Drug Abuse Patient Records regulations: The Federal rules restrict any use of the information to criminally investigate or prosecute any alcohol or drug abuse patient.[facility] DaytonIn the event this information is protected by the Federal Confidentiality of Alcohol and Drug Abuse Patient Records regulations: The Federal rules restrict any use of the information to criminally investigate or prosecute any alcohol or drug abuse patient.[facility] DaytonIn the event this information is protected by the Federal Confidentiality of Alcohol and Drug Abuse Patient Records regulations: The Federal rules restrict any use of the information to criminally investigate or prosecute any alcohol or drug abuse patient.[facility] DaytonIn the event this information is protected by the Federal Confidentiality of Alcohol and Drug Abuse Patient Records regulations: The Federal rules restrict any use of the information to criminally investigate or prosecute any alcohol or drug abuse patient.[facility] DaytonIn the event this information is protected by the Federal Confidentiality of Alcohol and Drug Abuse Patient Records regulations: The Federal rules restrict any use of the information to criminally investigate or prosecute any alcohol or drug abuse patient.[facility] DaytonIn the event this information is protected by the Federal Confidentiality of Alcohol and Drug Abuse Patient Records regulations: The Federal rules restrict any use of the information to criminally investigate or prosecute any alcohol or drug abuse patient.[facility] DaytonIn the event this information is protected by the Federal Confidentiality of Alcohol and Drug Abuse Patient Records regulations: The Federal rules restrict any use of the information to criminally investigate or prosecute any alcohol or drug abuse patient.[facility] DaytonIn the event this information is protected by the Federal Confidentiality of Alcohol and Drug Abuse Patient Records regulations: The Federal rules restrict any use of the information to criminally investigate or prosecute any alcohol or drug abuse patient.[facility] DaytonIn the event this information is protected by the Federal Confidentiality of Alcohol and Drug Abuse Patient Records regulations: The Federal rules restrict any use of the information to criminally investigate or prosecute any alcohol or drug abuse patient.[facility] DaytonIn the event this information is protected by the Federal Confidentiality of Alcohol and Drug Abuse Patient Records regulations: The Federal rules restrict any use of the information to criminally investigate or prosecute any alcohol or drug abuse patient.[facility] DaytonIn the event this information is protected by the Federal Confidentiality of Alcohol and Drug Abuse Patient Records regulations: The Federal rules restrict any use of the information to criminally investigate or prosecute any alcohol or drug abuse patient.[facility] DaytonIn the event this information is protected by the Federal Confidentiality of Alcohol and Drug Abuse Patient Records regulations: The Federal rules restrict any use of the information to criminally investigate or prosecute any alcohol or drug abuse patient.[facility] DaytonIn the event this information is protected by the Federal Confidentiality of Alcohol and Drug Abuse Patient Records regulations: The Federal rules restrict any use of the information to criminally investigate or prosecute any alcohol or drug abuse patient.[facility] DaytonIn the event this information is protected by the Federal Confidentiality of Alcohol and Drug Abuse Patient Records regulations: The Federal rules restrict any use of the information to criminally investigate or prosecute any alcohol or drug abuse patient.[facility] DaytonIn the event this information is protected by the Federal Confidentiality of Alcohol and Drug Abuse Patient Records regulations: The Federal rules restrict any use of the information to criminally investigate or prosecute any alcohol or drug abuse patient.[facility] DaytonIn the event this information is protected by the Federal Confidentiality of Alcohol and Drug Abuse Patient Records regulations: The Federal rules restrict any use of the information to criminally investigate or prosecute any alcohol or drug abuse patient.[facility] DaytonIn the event this information is protected by the Federal Confidentiality of Alcohol and Drug Abuse Patient Records regulations: The Federal rules restrict any use of the information to criminally investigate or prosecute any alcohol or drug abuse patient.[facility] DaytonIn the event this information is protected by the Federal Confidentiality of Alcohol and Drug Abuse Patient Records regulations: The Federal rules restrict any use of the information to criminally investigate or prosecute any alcohol or drug abuse patient.[facility] DaytonIn the event this information is protected by the Federal Confidentiality of Alcohol and Drug Abuse Patient Records regulations: The Federal rules restrict any use of the information to criminally investigate or prosecute any alcohol or drug abuse patient.[facility] DaytonIn the event this information is protected by the Federal Confidentiality of Alcohol and Drug Abuse Patient Records regulations: The Federal rules restrict any use of the information to criminally investigate or prosecute any alcohol or drug abuse patient.[facility] Scheduled Active and Recently Administ ered Medications [...] Nightly, First dose on Wed08/10/23 at 2100 2038 (Given - Provider: Kaela Soler RN) 2100 (Due) carvedilol (Coreg) tablet 3.125 mg 3.125 [...] Indication (Select all that apply): Surgical Prophylaxis 1940 (New Bag - Provider: Kaela Soler RN)2010 (Stopped - Provider: Kaela Soler RN) 329 (New Bag - Provider: Kaela Soler RN)399 (Stopped - Provider: Kaela Soler RN) celecoxib [...] 2037 (Given - Provider: Kaela Soler RN) 0819 (Given - Provider: Edwige Jones RN)2100 (Due) enalapril (Vasotec) tablet 2.5 mg 2.5 mg, oral, Daily RT, First dose on Wed08/11/23 at 0700 0624 (Given - Provid er: Kaela Soler RN) gabapentin (Neurontin) capsule 600 mg (COMPLETED) 600 mg, oral, Once, On Wed08/10/23 at 0845, For 1 dose, Preprocedure, Capsules may be opened and sprinkled on food (eg, applesauce, orange juice, pudding 0910 (Given - Provider: Arlin Garcia RN) pantoprazole [...] split., Tranexamic Acid Indication: Surgical Prophylaxis: Orthopedic 622 (Given - Provid er: Kaela Soler RN) [...] Unit 1634 (New Bag - Provider: Edwige Jones, RN) 0824 (Stopped - Provider: Edwige Jones, HAIR) PRN Medication Order 08/09/2023 08/10/2023 08/11/2023 bisacodyl [...] pain scores based on patient preference? Yes 0623 (Given - Provid er: Kaela Soler [...] 1617, Phase II/On Unit, 2nd Line. Give CA if patient is unable to take orally [...] 1617, Phase II/On Unit, 2nd Line. Give CA if patient is unable to take orally [...] 1045 (Given - Provid er: Sinai Alcantar, CAT OPERATOR-WHEEL BLOCKER) dexAMETHasone (PF) (Decadron) 5 mg, ropivacaine (Naropin) [...] (Given - Provid er: Maryam Lugo MD) Goals (unrecognized section and content) Goals may be documented in a n alternate section FOR RECORDS PERTAINING TO PATIENTS WHO ARE [...] BE BASED ON THE PRIMARY CLINICAL RECORDS. [employer] provides no warranty or guarantee of the accuracy or completeness of information in this document.
== END | disposition home or self-care (01) ==
LOC: MTLAB 15:47
PROVIDERS: PCP Student in an Organized Health Care Education/Training Program; Referring Provider Internal Medicine Rheumatology; Visit Provider Internal Medicine Rheumatology
DX: M05.79 Rheumatoid arthritis with rheumatoid factor of multiple sites without organ or systems involvement (principal); M35.00 Sjogren syndrome, unspecified; M79.7 Fibromyalgia; M17.0 Bilateral primary osteoarthritis of knee; Z79.899 Other long term (current) drug therapy
CPT/HCPCS: 36415; 80053; 85025

== ENCOUNTER → 2025-03-20 | Outpatient (CLI) | payer MEDICARE, SELFPAY ==
[2025-03-20 12:34] LABS: Hematocrit 34.2 % (37-47); Hemoglobin 11.3 g/dL (12.0-15.0); Immature Granulocytes Count 0.010 X10^3/uL (0.0-0.0); Mean Corp Hgb Conc 33.0 g/dL (32-36); Mean Corpuscular Volume 100.9 fL (81-99); Mean Platelet Vol. 9.6 fl (6.2-12.0); NRBC Flagged by Analyzer 0 % (0-5); Platelet Count 238 K/mm3 (150-450); RBC Distribution Width CV 15.3 % (11.6-14.6); RBC Distribution Width SD 55.9 fl (35.1-43.9); Red Blood Count 3.39 M/mm3 (4.2-5.4); White Blood Count 5.7 K/mm3 (4.4-11.0)
[2025-03-20 13:02] LABS: AST(SGOT) 28 U/L (<=31); Alanine Aminotransfer ALT/SGPT 20 U/L (<=34); Albumin, Serum 4.1 g/dL (3.4-4.8); Alkaline Phosphatase 108 U/L (35-104); Anion Gap 9 (5-15); BUN 18 mg/dL (4-19); BUN/Creat Ratio 18.3 RATIO (10-20); Calcium,Total 9.8 mg/dL (7.6-11.0); Carbon Dioxide 27.6 mmol/L (21.0-32.0); Chloride 99 mmol/L (98-108); Globulin 2.7 g/dL (2.2-4.2); Glucose 95 mg/dL (70-99); Potassium 4.8 mmol/L (3.3-5.1)
== END | disposition home or self-care (01) ==
LOC: MTLAB 10:12
PROVIDERS: PCP Student in an Organized Health Care Education/Training Program; Referring Provider Internal Medicine Rheumatology; Visit Provider Internal Medicine Rheumatology
DX: M05.79 Rheumatoid arthritis with rheumatoid factor of multiple sites without organ or systems involvement (principal); Z79.899 Other long term (current) drug therapy; M35.00 Sjogren syndrome, unspecified; M79.7 Fibromyalgia
CPT/HCPCS: 36415; 80053; 85025